=== PATIENT | female | born 1950 | race Caucasian/White ===

== ENCOUNTER 2023-04-21 09:59 | Outpatient (OUT) | payer MEDICARE, OTHER, SELFPAY ==
--- NOTE | 2023-04-21 10:03 | VEIN_ITS ---
Patient: MARCELA BREWER Exam Date: 04/21/2023 : 1950 Gender:F Ordering : DR ELISE BRADY M.D. Admission #: [id number] Family : Order #: [id number] CLICK HERE TO VIEW EXAM RADIOLOGY REPORT PROCEDURE: [facility] EST [facility] - OFFICE VISIT INITIAL COMPARISON: None. PROGRESS NOTES: [age] year old female who presents with a 2 year history of mild leg swelling, pain, skin discoloration. The patient's left leg symptoms are worse than the right. There has been a progression of symptoms. This increases with prolonged standing and prolonged sitting. The patient describes an improvement with walking, exercise, leg elevation. The patient denies any signs and symptoms to suggest arterial ischemia. The patient describes a family history varicose veins on maternal side. The patient has drinking and smoking history of : Current smoker; no alcohol consumption. Patient has a past medical history significant for chronic hypoxemic respiratory failure, chronic systolic heart failure. The patient denies a history of deep venous thrombus or pulmonary embolus. See separate history and physical for medication list. No prior treatment for varicose or spider veins. Current use of compression stockings. After review of nurse notes, history and physical exam I discussed at length the pathophysiology of venous hypertension and possible treatments, therapies and strategies available. We discussed at length the importance of elevating the lower extremities above the level of the heart, increased physical activity and compression stocking use. Ultrasound venous reflux study performed today was discussed at length with the patient. The report demonstrates no significant dilation or significant incompetence of the superficial veins that is suspected to contribute to patient's symptoms. PHYSICAL EXAM: The right leg demonstrates no significant varicosities, no significant spider veins, no ulceration, no significant edema, prominent purplish foot and toes skin discoloration. The left leg demonstrates no significant varicosities, no significant spider veins, no ulceration, mild edema, prominent purplish foot and toes skin discoloration. Both thighs, legs and feet were symmetrically warm to the touch. Good posterior tibial and dorsalis pedis pulses were present bilaterally. VEIN/VC Facility EST Comprehensive IMPRESSION: 1. No significant venous insufficiency 2. No significant lower extremity varicose veins 3. Mild left lower extremity subcutaneous edema 4. No flow significant arterial disease 5. CEAP: C3, EN, AN, PN PLAN: 1. Continued use of compression stockings 2. Elevated legs and increased physical activity symptomatic relief 3. Follow-up with primary care physician and specialists for continuing symptoms. Nurse notes, history and physical were reviewed and confirmed, see attached forms. The nurse was present throughout the physical exam and consultation Dictated by: Luis Limon M.D. on 04/21/2023 at 13:40 Approved by: Luis Limon M.D. on 04/21/2023 at 13:47
--- NOTE | 2023-04-21 10:03 | VEIN_ITS ---
Patient: MARCELA BREWER Exam Date: 04/21/2023 : 1950 Gender:F Ordering : DR ELISE BRADY M.D. Admission #: [id number] Family : Order #: [id number] CLICK HERE TO VIEW EXAM RADIOLOGY REPORT PROCEDURE: VC EXT VENOUS REFLUX ZAHIRA LMTD COMPARISON: None. INDICATIONS: I83.813 Pain due to varicose veins of bilateral leg veins TECHNIQUE: Duplex imaging of the lower extremity to assess the deep and superficial venous system for the presence of deep or superficial venous incompetence and to document the location and severity of disease. The study includes evaluation of the great saphenous vein (GSV), anterior accessory saphenous vein (AASV) and small saphenous vein (SSV). Patient scanned in reverse Trendelenburg and standing. FINDINGS: RIGHT LOWER EXTREMITY: Saphenofemoral Junction Reflux: Yes 5.1mm 1.0 sec GSV: Diam (mm) Reflux/ Time (sec) Proximal Thigh 5.5 Yes 1.2 Mid Thigh 2.4 No Distal Thigh 2.7 No Prox Calf 1.5 Yes 0.3 Mid Calf N/A Saphenopopliteal Junction Reflux: 1.5mm No SSV: Proximal Calf 1.3 Yes 0.3 Mid Calf 2.6 Yes 0.3 AASV: Proximal Thigh 3.5 No Mid Thigh 2.1 No Distal Thigh Thrombi: No acute or chronic thrombus visualized Compressibility: Normal Flow: Normal Preforator: Dist/med calf 2.0mm with 0s reflux. Mid/med calf 1.8mm with 0s reflux. Tech Note: GSV is discontinuous at prox calf. Hypoechoic avascular structure in pop fossa that measures 3.3 x 3.9 x 1.1 cm. Patent varicose vein mid/med calf 1.6mm with 0.8s reflux. Patent varicose vein mid/ant thigh 0.3mm with 0.5s reflux. Patent varicose vein dist/med thigh 2.1mm with 0s reflux. LEFT LOWER EXTREMITY: Saphenofemoral Junction Reflux: Yes 7.3 mm 1.6 sec GSV: Diam (mm) Reflux/Time (sec) Proximal Thigh 5.5 Yes 0.7 Mid Thigh 3.7 No Distal Thigh 3.3 Yes 0.6 Prox Calf N/A Mid Calf N/A Saphenopopliteal Junction Relux: 1.9 mm No SSV: Proximal Calf 1.7 No Mid Calf 1.5 No AASV: Proximal Thigh 3.2 No Mid Thigh 3.0 No Distal Thigh Thrombi: No acute or chronic thrombus visualized Compressibility: Normal Flow: Normal [employer] Site Manager: DIst/med calf 2.4mm with 0s reflux. Tech Note: Incompetent GSV. Patent varicose vein mid/med calf 2.2mm with 0s reflux. Patent varicose vein dist/med thigh 1.6mm with 0s reflux. CONCLUSION: 1. No significant abnormal dilation or reflux involving the superficial veins. Dictated by: Luis Limon M.D. on 04/21/2023 at 11:20 Approved by: Luis Limon M.D. on 04/21/2023 at 11:50
== END 2023-04-21 10:00 | disposition home or self-care (01) ==
LOC: VC 09:59
PROVIDERS: PCP Radiology Diagnostic Radiology; Visit Provider Radiology Diagnostic Radiology
DX: I83.813 Varicose veins of bilateral lower extremities with pain (principal)
CPT/HCPCS: 93970; G0463

== ENCOUNTER 2023-05-14 15:29 | Emergency (ER) | payer MEDICARE, OTHER, SELFPAY ==
[2023-05-14 15:52] VITALS: BP 143/87; PULSE 91; RESP 14; TEMP 36.7; O2SAT 98; BMI 20.6
--- NOTE | 2023-05-14 16:15 | XR_ITS ---
The [address] [address] Patient Name: MARCELA BREWER MRN: [id number] date: 1950 Sex: F Assigned Patient Location: ER Current Patient Location: ER Accession/Order Number: [id number] Exam Date: 05/14/2023 16:28 Report Date: 05/14/2023 16:45 At the request of: JESS VILLALOBOS Procedure: XR chest 1V EXAM: XR chest 1V HISTORY: sob COMPARISON: Portable chest 10/06/2016 TECHNIQUE: Audible chest FINDINGS: IMPRESSION: Again demonstrated is scarring within the left upper lobe. There is now a satellite foci measuring approximately 17 mm with questionable spiculation caudal to this within the left mid to upper hemithorax. No consolidation or infiltrate. No pneumothorax or pleural effusion. The cardiac, mediastinal and hilar contours are unremarkable. Chest CT imaging is recommended Electronically authenticated by: ELISE YORK Date: 05/14/2023 16:45
[2023-05-14 16:28] VITALS: O2SAT 99
--- NOTE | 2023-05-14 16:35 | ECG_ITS ---
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
--- NOTE | 2023-05-14 16:51 | CT_ITS ---
[address] [address] Patient Name: MARCELA BREWER MRN: [id number] date: 1950 Sex: F Assigned Patient Location: ER Current Patient Location: Accession/Order Number: [id number] Exam Date: 05/14/2023 17:04 Report Date: 05/14/2023 17:53 At the request of: JESS VILLALOBOS Procedure: CT chest wo con EXAM: CT chest wo con TECHNIQUE: Axial CT images were obtained of the chest without intravenous contrast administration. Sagittal and coronal reformatted images were also obtained. Dose reduction techniques were achieved by using automated exposure control and/or adjustment of mA and/or kV according to patient size and/or use of iterative reconstruction technique. HISTORY: follow on xray . Spiculated density of the left lung on x-ray. COMPARISON: Chest x-ray 05/14/2023 FINDINGS: Neck and Axilla: No lower neck or axillary lymphadenopathy. Mediastinum and [place]: No hilar or mediastinal lymphadenopathy. The esophagus is grossly unremarkable without dilatation or gross mass lesion. Heart and Major Vessels: The heart is normal for size with coronary artery calcification. No pericardial effusion. The aorta and central pulmonary arteries are unremarkable for size. Lung Os[place]: Severe centrilobular emphysematous changes. Scarring, bullous changes and bronchiectasis in the left upper lobe anteriorly. There is no discrete suspicious lung nodule. Pleural Spaces: No significant pleural effusion. No pneumothorax. Upper Abdomen: Scattered hepatic cysts. Chest Wall: No acute abnormality. CT/CT chest wo con IMPRESSION: Severe emphysematous changes. Scarring and bronchiectasis at the left apex accounting for abnormality seen on radiograph. No suspicious lung mass. No acute consolidation. Electronically authenticated by: KAYLAH MONTENEGRO Date: 05/14/2023 17:53
[2023-05-14] MEDS: FAMOTIDINE/PF 20 MG/2 ML VIAL IV (16:55)
[2023-05-14] MEDS: METHYLPREDNISOLONE SOD SUCC PF 125 MG/2 ML VIAL IVP (16:55)
--- NOTE | 2023-05-14 17:00 | PC.NURSE ---
respiratory swabs obtained and sent to lab
[2023-05-14 17:07] LABS: Basophils Absolute Auto 0.1 10^3/uL (0.0-0.1); Basophils Percent Auto 0.5 % (0.2-2.0); Eosinophils Percent Auto 0.2 % (0.9-7.0); Hematocrit 48.7 % (36.0-48.0); Hemoglobin 15.7 g/dL (12.0-16.0); Immature Granulocytes Abs Auto 0.04 10^3/uL (0.00-0.03); Immature Granulocytes Pct Auto 0.4 % (0.0-0.5); Lymphocytes Absolute Auto 0.4 10^3/uL (1.2-3.8); Lymphocytes Percent Auto 3.8 % (20.5-60.0); Mean Corpuscular HGB Conc 32.2 g/dL (29.9-35.2); Mean Corpuscular Hemoglobin 30.7 pg (26.7-34.0); Mean Corpuscular Volume 95.1 fL (81.0-99.0); Mean Platelet Volume 9.9 fL (9.5-13.5); Monocytes Absolute Auto 0.5 10^3/uL (0.3-0.8); Neutrophils Absolute Auto 9.6 10^3/uL (1.4-6.5); Neutrophils Percent Auto 90.1 % (43.0-75.0); Platelet Count 378 10^3/uL (150-450); Red Blood Count 5.12 10^6/uL (4.20-5.40); Red Cell Distribution Width 14.6 % (11.0-15.0); White Blood Count 10.6 10^3/uL (4.0-11.0)
[2023-05-14] MEDS: IPRATROPIUM/ALBUTEROL SULFATE 3 ML AMPUL.NEB IH (17:10)
[2023-05-14 17:20] LABS: Alanine Aminotransferase 21 U/L (14-59); Albumin Globulin Ratio 0.9; Albumin Level 3.8 g/dL (3.4-5.0); Alkaline Phosphatase 58 U/L (46-116); Anion Gap 11.9; Aspartate Amino Transferase 22 U/L (15-37); BUN Creatinine Ratio 14.5; Bilirubin Total 0.4 mg/dL (0.2-1.0); Calcium 9.8 mg/dL (8.5-10.1); Carbon Dioxide 31.4 mmol/L (21.0-32.0); Chloride 98 mmol/L (98-107); Estimated GFR (African America >60 (>=60); Estimated GFR (Non-African Ame >60 (>=60); Glucose 113 mg/dL (74-106); Potassium 4.3 mmol/L (3.5-5.1); Sodium 137 mmol/L (136-145); Total Protein 7.8 g/dL (6.4-8.2)
[2023-05-14 17:22] LABS: Troponin I High Sensitivity 4.9 pg/mL (4.0-51.3)
[2023-05-14 17:45] VITALS: PULSE 91
[2023-05-14 18:31] VITALS: PULSE 69; RESP 18; O2SAT 90
--- NOTE | 2023-05-15 07:05 | ED.URI1 ---
HPI - URI/Sore Throat General Chief Complaint: Upper Respiratory Infection Stated Complaint: SINUS/SORE THROAT/DIFF BREATHING Time Seen by Provider: 05/14/23 15:35 Source: patient History of Present Illness HPI Narrative: The patient have history of advanced PD is coming to the ER with shortness of breath after she recently was diagnosed with sinusitis, the patient already take azithromycin at home on a weekly basis to avoid infection due to her COPD she also have no fever or chills but she only complaining cough as well as sore throat No other complaints Related Data Home Medications Medication Instructions Recorded Confirmed albuterol 90 mcg/actuation aerosol mcg inhalation 05/14/23 inhaler azithromycin 250 mg tablet 250 mg PO .3x week 05/14/23 05/14/23 budesonide-formoterol HFA 80 2 inh inhalation BID 05/14/23 05/14/23 mcg-4.5 mcg/actuation aerosol inhaler (Symbicort) empagliflozin 10 mg tablet 10 mg PO DAILY 05/14/23 05/14/23 (Jardiance) esomeprazole magnesium 40 mg 40 mg PO BID 05/14/23 05/14/23 capsule,delayed release (Nexium) guaifenesin 400 mg tablet 400 mg PO TID 05/14/23 05/14/23 lorazepam 1 mg tablet (Ativan) 1 mg PO Q12H PRN anxiety 05/14/23 05/14/23 metoprolol tartrate 25 mg tablet 25 mg PO BID 05/14/23 05/14/23 prednisone 10 mg tablet 10 mg PO DAILY 05/14/23 05/14/23 roflumilast 500 mcg tablet 500 mcg PO DAILY 05/14/23 05/14/23 (Daliresp) sacubitril 24 mg-valsartan 26 mg 1 tab PO BID 05/14/23 05/14/23 tablet (Entresto) Previous Rx's Medication Instructions Recorded doxycycline hyclate 100 mg capsule 100 mg PO BID 7 days #14 caps 05/14/23 prednisone 20 mg tablet 20 mg PO DAILY #4 tabs 05/14/23 Allergies Allergy/AdvReac Type Severity Reaction Status Date / Time cephalexin [From Keflex] Allergy Intermediate Verified 05/14/23 16:03 leviquin Allergy Unknown Uncoded 05/14/23 16:03 Review of Systems ROS Status of ROS 10 or more systems reviewed and unremarkable except as noted in history and below [facility] Medical History (Updated 05/14/23 @ 18:09 by Chayo Castellanos MD) Exam Narrative Exam Narrative: Nurses notes and vital signs reviewed and patient is not hypoxic. General: Well-appearing and in no apparent distress. Skin: Warm, dry, no pallor noted. No rash. Head: Normocephalic, atraumatic. Neck: Supple, non-tender. Eye: Pupils are equal, round and EOMI. No scleral icterus. Ears, Nose, Mouth, and Throat: TM are clear, no nasal mucosal hypertrophy. Oral mucosa is moist, no posterior oropharynx erythema, uvula is mid-line Cardiovascular: Regular Rate and Rhythm without murmur, gallop or rub. Respiratory: No accessory muscle use or respiratory distress. Lungs distant breathing sound bilaterally Chest Wall: no tenderness Back: No midline thoracic or lumbar vertebral tenderness. No CVA tenderness Musculoskeletal: normal ROM, no calf or popliteal tenderness, no lower extremity edema/swelling GI: Abdomen is soft, non-distended. Normal bowel sounds. No masses appreciated. No tenderness to palpation. No rebound, guarding, or rigidity noted. Neurological: A&O x4. No cranial nerve dysfunction observed. No truncal ataxia. Moves all extremities. Sensation intact. Psychiatric: Cooperative and interactive. Normal mood and affect. Constitutional Vital Signs, click to edit/add: Last Vital Signs Temp 98.1 F 05/14/23 15:52 Pulse 69 05/14/23 18:31 Resp 18 05/14/23 18:31 BP 143/87 H 05/14/23 15:52 Pulse Ox 90 L 05/14/23 18:31 O2 Del Method Nasal Cannula 05/14/23 16:28 O2 Flow Rate 2 05/14/23 16:28 Course Vital Signs Vital signs: Vital Signs Temperature 98.1 F 05/14/23 15:52 Pulse Rate 91 H 05/14/23 15:52 Respiratory Rate 14 05/14/23 15:52 Blood Pressure 143/87 H 05/14/23 15:52 Pulse Oximetry 98 05/14/23 15:52 Oxygen Delivery Method Room Air 05/14/23 15:52 Temperature 98.1 F 05/14/23 15:52 Pulse Rate 69 05/14/23 18:31 Respiratory Rate 18 05/14/23 18:31 Blood Pressure 143/87 H 05/14/23 15:52 Pulse Oximetry 90 L 05/14/23 18:31 Oxygen Delivery Method Nasal Cannula 05/14/23 16:28 Oxygen Delivery Flow Rate 2 05/14/23 16:28 MDM - URI/Sore Throat MDM Narrative Medical decision making narrative: The patient EKG showing sinus rhythm with a heart rate of [address] elevation or depression she is presenting with a typical COPD exacerbation but she have advanced COPD and she already was oxygen at 2 L baseline she did not increase the oxygen she is saturating 95% on her 2 L and 90% without the oxygen The patient was not showing any distress in the ER and her chest x-ray shows a possible nodule and CAT scan at follow-up did not show any acute pathology The patient CBC and chemistry were within normal she already was taking prednisone but she was tapering it down right now she was discharged home with 20 mg of prednisone daily for the next 4 days in addition to continuing her doxycycline that she was already taking The patient is to follow up with primary care physician in next 2-3 days or to return to the emergency department should any of the signs or symptoms worsen or new symptoms develop. The patient agrees with the following Diagnosis and Treatment plan and the patient will be discharged home. Lab Data Labs: Lab Results 05/14/23 Range/Units 16:45 WBC 10.6 (4.0-11.0) 10^3/uL RBC 5.12 (4.20-5.40) 10^6/uL Hgb 15.7 (12.0-16.0) g/dL Hct 48.7 H (36.0-48.0) % MCV 95.1 (81.0-99.0) fL MCH 30.7 (26.7-34.0) pg MCHC 32.2 (29.9-35.2) g/dL RDW 14.6 (11.0-15.0) % Plt Count 378 (150-450) 10^3/uL MPV 9.9 (9.5-13.5) fL Neut % (Auto) 90.1 H (43.0-75.0) % Lymph % (Auto) 3.8 L (20.5-60.0) % [place] % (Auto) 5.0 (1.7-12.0) % Eos % (Auto) 0.2 L (0.9-7.0) % Baso % (Auto) 0.5 (0.2-2.0) % Neut # (Auto) 9.6 H (1.4-6.5) 10^3/uL Lymph # (Auto) 0.4 L (1.2-3.8) 10^3/uL [place] # (Auto) 0.5 (0.3-0.8) 10^3/uL Eos # (Auto) 0.0 (0.0-0.7) 10^3/uL Baso # (Auto) 0.1 (0.0-0.1) 10^3/uL Abs Immat Gran (auto) 0.04 H (0.00-0.03) 10^3/uL Imm/Tot Granulo (auto) 0.4 (0.0-0.5) % Sodium 137 (136-145) mmol/L Potassium 4.3 (3.5-5.1) mmol/L Chloride 98 (98-107) mmol/L Carbon Dioxide 31.4 (21.0-32.0) mmol/L Anion Gap 11.9 BUN 10.0 (7.0-18.0) mg/dL Creatinine 0.69 (0.55-1.02) mg/dL Est GFR ( Amer) >60 (>=60) Est GFR (Non-Af Amer) >60 (>=60) BUN/Creatinine Ratio 14.5 Glucose 113 H (74-106) mg/dL Calcium 9.8 (8.5-10.1) mg/dL Total Bilirubin 0.4 (0.2-1.0) mg/dL AST 22 (15-37) U/L ALT 21 (14-59) U/L Alkaline Phosphatase 58 (46-116) U/L Troponin I High Sens 4.9 (4.0-51.3) pg/mL Total Protein 7.8 (6.4-8.2) g/dL Albumin 3.8 (3.4-5.0) g/dL Globulin 4.0 g/dL Albumin/Globulin Ratio 0.9 Discharge Plan Discharge Chief Complaint: Upper Respiratory Infection Clinical Impression: COPD exacerbation Patient Disposition: Home, Self-Care Time of Disposition Decision: 18:07 Condition: Good Prescriptions / Home Meds: New prednisone 20 mg tablet 20 mg PO DAILY Qty: 4 0RF doxycycline hyclate 100 mg capsule 100 mg PO BID 7 Days Qty: 14 0RF No Action Jardiance 10 mg tablet 10 mg PO DAILY Entresto 24-26 mg tablet 1 tab PO BID roflumilast [Daliresp] 500 mcg tablet 500 mcg PO DAILY albuterol 90 mcg/actuation aerosol inhalation budesonide-formoterol [Symbicort] 80-4.5 mcg/actuation HFA aerosol inhaler 2 inh inhalation BID guaifenesin 400 mg tablet 400 mg PO TID esomeprazole magnesium [Nexium] 40 mg capsule,delayed release(DR/EC) 40 mg PO BID metoprolol tartrate 25 mg tablet 25 mg PO BID lorazepam [Ativan] 1 mg tablet 1 mg PO Q12H PRN (Reason: anxiety) prednisone 10 mg tablet 10 mg PO DAILY azithromycin 250 mg tablet 250 mg PO .3x week Rx Instructions: start on day 2 of therapy Instructions: COPD (Chronic Obstructive Pulmonary Disease) (ED) Stand Alone Forms: Portal Instructions Referrals: Maximino Carrillo MD [Primary Care Provider] - 1 week Discharge Date/Time: 05/14/23 18:23
== END 2023-05-14 18:23 | disposition home or self-care (01) ==
PROVIDERS: Emergency Provider Emergency Medicine; PCP Radiology Diagnostic Radiology
DX: J44.1 Chronic obstructive pulmonary disease with (acute) exacerbation (principal); Z79.899 Other long term (current) drug therapy
CPT/HCPCS: 36415; 71045; 71250; 80053; 84484; 85025; 93005; 94640; 96374; 96375; 99285; J2930

== ENCOUNTER 2023-12-29 07:49 | Outpatient (RCR) | payer MEDICARE, OTHER, SELFPAY ==
[2023-12-27 15:48] LABS: Anion Gap 10.8; BUN Creatinine Ratio 10.9; Calcium 10.3 mg/dL (8.5-10.1); Carbon Dioxide 33.9 mmol/L (21.0-32.0); Chloride 97 mmol/L (98-107); Estimated GFR (African America >60 (>=60); Estimated GFR (Non-African Ame >60 (>=60); Glucose 146 mg/dL (74-106); Potassium 3.7 mmol/L (3.5-5.1); Sodium 138 mmol/L (136-145)
[2023-12-29 11:30] VITALS: BP 168/80; PULSE 95; TEMP 37.3; O2SAT 92
[2023-12-29] MEDS: ZOLEDRONIC ACID/MANNITOL-WATER 5 MG/100 ML BOTTLE 400 MG IV (12:05)
--- NOTE | 2023-12-29 12:51 | PC.NURSE ---
1130 Arrival ambulatory to chair 2, alert oriented. wearing oxygen at 4 lpm nc. vs obtained. #24 iv initiated right forearm on 1 attempt, pt tolerated well. Educated on need to be taking calcium and vit d, patient verbalizes she is currentlytaking both. most recent labs reviewed with patient. encourgaged to increase oral intake of fluids for next 24 hours. patient verbalizes understanding. 1225 IV reclast infused, flushed line with normalsaline. IV dc'd catheter intact,site clear. Released ambulatory
== END 2024-01-03 23:59 | disposition home or self-care (01) ==
LOC: INF 07:49
PROVIDERS: PCP Family Medicine; Visit Provider Family Medicine
DX: Z79.899 Other long term (current) drug therapy (principal); M81.0 Age-related osteoporosis without current pathological fracture
CPT/HCPCS: 36415; 80048; 96365; J3489

== ENCOUNTER 2024-01-10 07:57 | Outpatient (OUT) | payer MEDICARE, OTHER, SELFPAY ==
--- NOTE | 2024-01-10 08:02 | VEIN_ITS ---
Patient Name: MARCELA BREWER MR#: [id number] : 1950 Exam Date: 01/10/2024 Ordering Doctor: Non-Staff Physician RADIOLOGY REPORT PROCEDURE: VC EXT VENOUS REFLUX ZAHIRA LMTD COMPARISON: VC EXT VENOUS REFLUX ZAHIRA LMTD, 04/21/2023. INDICATIONS: Pain due to varicose veins of bilateral legs I83.813 TECHNIQUE: Duplex imaging of the lower extremity to assess the deep and superficial venous system for the presence of deep or superficial venous incompetence and to document the location and severity of disease. The study includes evaluation of the great saphenous vein (GSV), anterior accessory saphenous vein (AASV) and small saphenous vein (SSV). Patient scanned in reverse Trendelenburg and standing. FINDINGS: RIGHT LOWER EXTREMITY: Saphenofemoral Junction Reflux: Yes 6.3mm 0.6 sec GSV: Diam (mm) Reflux/ Time (sec) Proximal Thigh 5.5 No Mid Thigh 2.3 No Distal Thigh 2.3 No Prox Calf 2.3 No Mid Calf N/A Saphenopopliteal Junction Reflux: 1.9mm No SSV: Proximal Calf 1.8 No Mid Calf 2.4 No AASV: Proximal Thigh 1.9 No Mid Thigh 1.7 No Distal Thigh Thrombi: No acute or chronic thrombus visualized Compressibility: Normal Flow: Normal Preforator: Dist/med calf 1.5mm with 0s reflux. Tech Note: Patent varicose vein prox/med calf 1.6mm with 0s reflux. 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 Tech Note: Patent varicose vein dist/med thigh 2.4mm with 0s reflux. CONCLUSION: 1. No abnormal or suspicious dilation or reflux within the superficial veins of the right and left lower extremity. 2. No appreciable deep vein thrombus. Dictated by: Luis Limon M.D. on 01/10/2024 at 15:51 Approved by: Luis Limon M.D. on 01/10/2024 at 15:53
--- NOTE | 2024-01-10 08:40 | VEIN_ITS ---
Patient Name: MARCELA BREWER MR#: [id number] : 1950 Exam Date: 01/10/2024 Ordering Doctor: Non-Staff Physician PROCEDURE: VC ULTRASOUND IVC LMT COMPARISON: None. 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 Dictated by: Maximino Carrillo MD on 01/11/2024 at 14:29 Approved by: Maximino Carrillo MD on 01/11/2024 at 14:38 Dictated by: Maximino Carrillo MD on 01/11/2024 at 14:56 Approved by: Maximino Carrillo MD on 01/11/2024 at 14:56
== END 2024-01-10 07:58 | disposition home or self-care (01) ==
LOC: VC 07:57
PROVIDERS: PCP Family Medicine
DX: I87.2 Venous insufficiency (chronic) (peripheral) (principal); I73.89 Other specified peripheral vascular diseases; R60.0 Localized edema
CPT/HCPCS: 76775; 93970

== ENCOUNTER 2024-04-21 16:59 | Emergency (ER) | payer MEDICARE, OTHER, SELFPAY ==
[2024-04-21] VITALS (15 sets, daily range): BP systolic 152–172; BP diastolic 75–95; PULSE 85–96; TEMP 36.6; O2SAT 94–100; BMI 19.8
--- OUTSIDE RECORDS SUMMARY | 2024-04-21 17:12 | XMS_ITS | CCD ---
Author Organization [facility] Care Team Providers Care It Risk And Assurance Senior Manager Name Role Phone Bernadette Lyles Primary Care Provider PILI STEARNS Referring Unavailable BERNADETTE LYLES Primary Care Unavailable Luiz Tadeo Primary Care Provider Luiz Tadeo Primary Care Provider [phone] Luiz Tadeo Primary Care Provider [phone] Luiz Tadeo Primary Care Provider Alex Riggins MD Unavailable DR LUIZ TADEO Primary Care Unavailable WILBER, DR FLEMING Admitting Unavailable WILBER, DR FLEMING Consulting Unavailable WILBER, DR FLEMING Attending Unavailable DINEROSAMANTHA Consulting Unavailable NADEREHernandez, DR LUIZ Anglin Admitting Unavailable NADERER, DR LUIZ Anglin Primary Care Unavailable NADEREHernandez, DR LUIZ Anglin Consulting Unavailable NADEREHernandez, DR LUIZ Anglin Attending Unavailable ALEX RIGGINS Referring Unavailable LUIZ TADEO Primary Care Unavailable ALEX RIGGINS Referring Unavailable LUIZ TADEO Primary Care Unavailable LUIZ TADEO Primary Care Unavailable ALEX RIGGINS Referring Unavailable Alex Riggins MD Unavailable Luiz Tadeo MD Primary Care Provider [phone] LUIZ TADEO Primary Care Unavailable DENNISE BENTLEY Attending Unavailable LAURA MAC Consulting Unavailable CARYN GONZALEZ Admitting Unavailable ILEANA, NISH Referring Unavailable LUIZ TADEO Primary Care Unavailable ILEANA, NISH Referring Unavailable LUIZ TADEO Primary Care Unavailable LAURA MAC Attending Unavailable LAURA MAC Referring Unavailable LUIZ TADEO Primary Care Unavailable Naderer, Luiz A Primary Care Provider LAURA MAC Attending Unavailable NADERER, LUIZ Referring Unavailable NADERER, LUIZ Primary Care Unavailable BUBBA, LAURA M Attending Unavailable NADERER, LUIZ Referring Unavailable NADERER, LUIZ Primary Care Unavailable NADERER, LUIZ Attending Unavailable FAWWAD, Attending Unavailable FAWWAD, Attending Unavailable RIGGINS, ALEX Attending Unavailable RIGGINS, ALEX Referring Unavailable NADERER, LUIZ A Primary Care Unavailable HORNACEK, YUKI Referring Unavailable NADERER, LUIZ A Primary Care Unavailable HORNACEK, YUKI Attending Unavailable HORNACEK, YUKI Referring Unavailable NADERER, LUIZ A Primary Care Unavailable HORNACEK, YUKI Attending Unavailable RIGGINS, ALEX Referring Unavailable NADERER, LUIZ A Primary Care Unavailable RIGGINS, ALEX Attending Unavailable RIGGINS, ALEX Referring Unavailable NADERER, LUIZ A Primary Care Unavailable ALEX RIGGINS Referring Unavailable NADERER, LUIZ Primary Care Unavailable BUBBA, LAURA M Attending Unavailable BUBBA, LAURA M Referring Unavailable NADERER, LUIZ Primary Care Unavailable BUBBA, LAURA M Referring Unavailable NADERER, LUIZ Primary Care Unavailable NADERER, LUIZ Referring Unavailable NADERER, LUIZ Primary Care Unavailable BUBBA, LAURA M Referring Unavailable NADERER, LUIZ Primary Care Unavailable BUBBA, LAURA M Attending Unavailable BUBBA, LAURA M Referring Unavailable NADERER, LUIZ Primary Care Unavailable NADERER, LUIZ Primary Care Unavailable BUBBA, LAURA M Referring Unavailable BUBBA, LAURA M Referring Unavailable NADERER, LUIZ Primary Care Unavailable BUBBA, LAURA M Referring Unavailable NADERER, LUIZ Primary Care Unavailable Allergies Allergy Classification Reported Allergen(s) Allergy Type Date of Onset Reaction(s) Facility carbinoxamine / Pseudoephedrine (1 source) carbinoxamine / Pseudoephedrine Drug Allergy 2 [facility] Cephalosporins (antibiotic) (2 sources) Cephalexin Drug Allergy 2 [facility] Work Phone: DOPamine Antagonists (1 source) Metoclopramide Drug Allergy 2 [facility] Macrolides (antibiotic) (1 source) Erythromycin Drug Allergy 2 Nausea And Vomiting [facility] Phone: metaxalone (1 source) metaxalone Drug Allergy 2 [facility] Quinolones (antibiotic) (2 sources) Ciprofloxacin Drug Allergy 2 Rash [facility] Serotonin Reuptake Inhibitors (SSRIs) (1 source) Sertraline Drug Allergy 2 Swelling [facility] (20 sources) carbinoxamine / Pseudoephedrine; 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: [CARBINOXAMINE-PSEU DOEPHEDRINE] Drug Allergy 6 Other: See Comments [facility] (20 sources) Cephalexin; 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: [CEPHALEXIN] Drug Allergy 2 Hives [facility] (20 sources) Ciprofloxacin; 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: [CIPROFLOXACIN] Drug Allergy 8 Rash [facility] (20 sources) Erythromycin; 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: [ERYTHROMYCIN] Drug Allergy 2 GI Upset, Nausea [facility] (20 sources) levoFLOXacin; 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: [LEVOFLOXACIN] Drug Allergy 2 Rash, Swelling [facility] (20 sources) metaxalone; 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: [METAXALONE] Drug Allergy 2 Other: See Comments [facility] (20 sources) Metoclopramide; 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: [METOCLOPRAMIDE] Drug Allergy 2 Intolerance [facility] (20 sources) montelukast; 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: [MONTELUKAST] Drug Allergy 1 Other: See Comments, Wheezing [facility] (20 sources) pantoprazole; 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: [PANTOPRAZOLE] Drug Allergy 1 Other: See Comments, Abdominal Pain [facility] (20 sources) Sertraline; 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: [SERTRALINE] Drug Allergy 2 Swelling [facility] (1 source) Amoxicillin Drug Allergy 3 [facility] (1 source) carbinoxamine Drug Allergy 3 [facility] (1 source) Cephalexin Drug Allergy 2 [facility] (1 source) Ciprofloxacin Drug Allergy 2 [facility] (1 source) Erythromycin Drug Allergy 2 [facility] (1 source) Gentian Mary Drug Allergy 3 [facility] (1 source) Iothalamate Drug Allergy 2 [facility] (1 source) levoFLOXacin Drug Allergy 2 [facility] (1 source) metaxalone Drug Allergy 3 [facility] (1 source) metaxalone Drug Allergy 2 [facility] (1 source) montelukast Drug Allergy 3 [facility] (1 source) Sertraline Drug Allergy 3 [facility] (1 source) Sertraline Drug Allergy 2 [facility] (8 sources) Metoclopramide; 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: [METOCLOPRAMIDE HCL] Drug Allergy 6 [facility] (8 sources) pantoprazole; 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: [PANTOPRAZOLE SODIUM] Drug Allergy 1 [facility] Medications Current Medications Medication Drug Class(es) Dates Sig (Normalized) Sig (Original) acetaminophen 325 mg oral tablet (20 sources) Start: 05-05-2021 take 2 tablets by mouth every four hours as needed acetaminophen (TYLENOL) 325 mg tablet Take 650 mg by mouth every 4 hours as needed. 0 05/05/2021 Active Comment on above: Take 650 mg by mouth every 4 hours as needed. [id number] 200 actuat albuterol 0.09 mg/actuat metered dose inhaler (20 sources) beta2-Adrenergic Agonist Start: 07-25-2023 take 2 puff(s) by mouth every six hours as needed for wheezing albuterol (PROVENTIL HFA;VENTOLIN HFA) 90 mcg/actuation inhaler Indications: Chronic obstructive pulmonary disease, unspecified COPD type ([facility]) INHALE TWO PUFFS BY MOUTH EVERY 6 HOURS NEEDED FOR WHEEZING AND SHORTNESS OF BREATH 8.5 g 11 07/25/2023 Active Start: 09-11-2021 albuterol HFA (PROVENTIL HFA, VENTOLIN HFA) 90 mcg/actuation inhaler once daily as needed. 0 09/11/2021 Active Comment on above: once daily as needed . albuterol 0.833 mg/ml / ipratropium bromide 0.167 mg/ml inhalation solution (1 source) Anticholinergic, beta2-Adrenergic Agonist Start: 017 take 1 dose by inhalation four times daily ipratropium-albuterol (DUONEB) 0.5-2.5 (3) MG/3ML SOLN nebulizer solution INHALE THE CONTENTS OF 1 VIAL BY NEBULIZER QID PRF SHORTNESS OF BREATH 3 07/25/2017 Active atorvastatin 10 mg oral tablet (20 sources) HMG-CoA Reductase Inhibitor take 1 tablet by mouth once daily atorvastatin (LIPITOR) 10 mg tablet Take 10 mg by mouth once daily. 0 Active Comment on above: Take 10 mg by mouth once daily. azithromycin 250 mg oral tablet (5 sources) Macrolide Antimicrobial Start: End: take 1 tablet by mouth three times weekly azithromycin (ZITHROMAX) 250 mg tablet Indications: Chronic obstructive pulmonary disease, unspecified COPD type (CMS-HCC) , Bronchiectasis (CMS-HCC) TAKE 1 TABLET(250 MG) BY MOUTH 3 TIMES A WEEK 12 tablet 11 10/29/2023 11/26/2023 Active Start: 11-16-2017 End: 01-14-2022 azithromycin (ZITHROMAX) 250 mg tablet Take 1 tablet by mouth every 48 hours. 0 11/16/2017 01/14/2022 Start: 11-16-2017 take 1 tablet by ella th once daily azithromycin (ZITHROMAX) 250 MG tablet TAKE ONE TABLET BY MOUTH DAILY 30 tablet 0 11/16/2017 Active Comment on above: Take 1 tablet by ella th every 48 hours. benzonatate 100 mg oral capsule (3 sources) Non-narcotic Antitussive Start: 09-24-19 take 1 capsule by mouth three times daily as needed for cough benzonatate (TESSALON PERLES) 100 mg capsule Take 1 capsule (100 mg total) by mouth 3 (three) times a day as needed for cough. 20 capsule 0 09/24/2023 Active 120 actuat budesonide 0.16 mg/actuat / formoterol fumarate 0.0048 mg/actuat / glycopyrrolate 0.009 mg/actuat metered dose inhaler (10 sources) Corticosteroid, beta2-Adrenergic Agonist Start: 12-14-20 23 budesonide-glycopyr -formoterol (BREZTRI AEROSPHERE) 160-9-4.8 mcg/actuation HFA aerosol inhaler Inhale 2 Puffs as instructed. 0 08/18/2023 Active Start: 08-18-2023 take 2 puff(s) by inhalation at bedtime imkcbfzzkz-uvlffvna-uweafcreyf 160-9-4.8 mcg/actuation HFA aerosol inhaler Indications: Chronic obstructive pulmonary disease, unspecified COPD type ([facility]) Inhale 2 puffs in the morning and at bedtime. 10.7 g 12 08/18/2023 Active Comment on above: Inhale 2 Puffs as in structed. Calcium Carb-Cholecalciferol (CALCIUM CARBONATE-VITAMIN D3 PO) (1 source) Calcium Carb-Cholecalciferol (CALCIUM CARBONATE-VITAMIN D3 PO) Take 1 tablet by mouth 0 Active calcium carbonate 2500 mg / cholecalciferol 800 unt oral tablet (20 sources) Vitamin D take 1 tablet by mouth once daily calcium carbonate-vitamin D3 1,000 mg-20 mcg (800 unit) tab Take 1 tablet by mouth once daily. 0 Active Comment on above: Take 1 tablet by ella th once daily. doxycycline hyclate 100 mg oral capsule (1 source) Tetracycline-class Drug Start: End: 024 take 1 capsule by mouth in the morning, then take 1 capsule by mouth at bedtime doxycycline (VIBRAMYCIN) 100 mg capsule Indications: [place]asis [place] Take 1 capsule (100 mg total) by mouth in the morning and 1 capsule (100 mg total) before bedtime. Do all this for 10 days. 20 capsule 0 11/10/2023 11/20/2023 Active eflornithine 139 mg/ml topical cream (1 source) Antiprotozoal, Decarboxylase Inhibitor Start: Eflornithine HCl (VANIQA) 13.9 % CREA Apply 1 Applicatorful topically 2 times daily. 1 Tube 6 11/09/2012 Active empagliflozin 10 mg oral tablet (20 sources) Sodium-Glucose Cotransporter 2 Inhibitor Start: take 1 tablet by mouth once daily empagliflozin (JARDIANCE) 10 mg tablet Take 1 tablet by mouth once daily. 90 tablet 3 07/07/2023 Active Comment on above: Take 10 mg by mouth once daily. Take 1 tablet by ella once daily. esomeprazole 40 mg delayed release oral capsule (20 sources) Proton Pump Inhibitor take 1 capsule by mouth twice daily esomeprazole (NEXIUM) 40 mg capsule Take 40 mg by mouth twice daily. 0 Active take 1 capsule by mouth once mariah ly esomeprazole (NEXIUM) 40 mg capsule Take 40 mg by mouth once daily. 0 Active take 40 mg by mouth once daily e someprazole Magnesium (NEXIUM) 40 MG PACK Take 40 mg by mouth daily 0 Active Comment on above: Take 40 mg by mouth once daily. Take 40 mg by mouth twice daily. 12 hr guaiFENesin 600 mg extended release oral tablet (5 sources) Start: take 1 tablet by mouth once guaiFENesin (MUCINEX) 600 mg tablet extended release 12hr Indications: Bronchiectasis (CMS-HCC) , Chronic cough Take 1 tablet (600 mg total) by mouth every 12 (twelve) hours. 60 tablet 10 03/10/2023 Active ipratropium bromide 0.2 mg/ml inhalation solution (20 sources) Anticholinergic Start: 023 take 1 dose by inhalation four times daily ipratropium (ATROVENT) 0.02 % nebulizer solution Indications: Other emphysema (CMS-HCC) , Bronchiectasis (CMS-HCC) INHALE CONTENTS OF 1 VIAL VIA NEBULIZER FOUR TIMES DAILY 1080 mL 1 07/26/2023 Active ipratropium (ATR OVENT) 0.02 % nebulizer solution Use 0.5 mg via nebulizer four times daily. 0 Active Comment on above: Use 0.5 mg via nebul izer four times daily. iv contrast (will be provided with radiology test) (1 source) Start: 024 End: 024 inject 1 dose intravenously once iv contrast (will be provided with radiology test) CTA ABD/PEL - No IV access, insert saline lock prior to the sedation, infusion, injection for imaging exam. Discontinue saline lock post exam. If Pt. has a central line or IVAD, may access for administration according to line specific nursing protocol. Once exam is complete flush line and de-access according to line specific nursing protocol in the CT contrast administration guidelines link. 1 Each 0 03/15/2024 03/16/2024 Active levalbuterol 0.417 mg/ml inhalation solution (20 sources) beta2-Adrenergic Agonist Start: levalbuterol (XOPENEX) 1.25 mg/3 mL nebulizer solution four times daily. 0 09/11/2021 Active Comment on above: four times daily. 24 hr loratadine 10 mg / pseudoephedrine sulfate 240 mg extended release oral tablet (14 sources) alpha-Adrenergic Agonist End: take 1 tablet by mouth once in the morning, then take 1 tablet by mouth every twenty-four hours loratadine-pseudoeph edrine (CLARITIN-D 24-hour) 10-240 mg per 24 hr tablet Take 1 tablet by mouth in the morning. 0 Active take 1 tablet by ella th once daily loratadine-pseudoephedrine ER (CLARITIN- D 24) 10-240 mg Tb24 Take 1 tablet by mouth once daily. 0 Active take 1 tablet by ella th once daily Loratadine-Pseudoephedrine (CLARITIN-D 2 4 HOUR PO) Take 1 tablet by mouth daily. 0 Active Comment on above: Take 1 tablet by ella th once daily. Take 1 tablet by ella th as needed. LORazepam 1 mg oral tablet (20 sources) Benzodiazepine Start: 6 take 1 tablet by mouth four times daily LORazepam (ATIVAN) 1 mg tablet Take 1 mg by mouth four times daily. 0 07/26/2016 Active take 1 tablet by ella th every six hours as needed for anxiety LORazepam (ATIVAN) 0.5 MG tablet Take 0. 5 mg by mouth every 6 hours as needed for Anxiety. 0 Active Comment on above: Take 1 mg by mouth f our times daily. 24 hr metoprolol succinate 50 mg extended release oral tablet (20 sources) beta-Adrenergic Stanley Start: 09-22-19 End: 04-07-20 23 take 1 tablet by mouth twice daily metoprolol succinate ER (TOPROL XL) 50 mg 24 hr tablet Take 1 tablet by mouth twice daily. 180 tablet 3 04/08/2023 Active Comment on above: Take 50 mg by mouth twice daily. Take 1 tablet by ella th twice daily. nebulizer accessories (REUSABLE NEBULIZER KIT) kit (5 sources) Start: 09-23-19 17 nebulizer accessories (REUSABLE NEBULIZER KIT) kit Indications: Chronic obstructive pulmonary disease, unspecified COPD type ([facility]) Use as directed 1 kit 11 09/23/2016 Active nebulizer accessories misc (5 sources) Start: 10-21-19 nebulizer accessories misc Indications: Chronic respiratory failure with hypoxia ([facility]) , Chronic obstructive pulmonary disease, unspecified COPD type ([facility]) , [place]asis [place] Tubing kit and supplies for home nebulizer 1 each 12 10/21/2022 Active 24 hr nicotine 0.875 mg/hr transdermal system (4 sources) Cholinergic Nicotinic Agonist Start: 09-24-19 apply 1 dose transdermal route every hour in the morning nicotine (NICODERM CQ) 21 mg/[address] 1 patch on the skin in the morning. 30 patch 0 09/24/2023 Active Start: 05-20-2016 nicotine (RUBENS DERM CQ) 21 MG/24HR Place 1 patch onto the skin 0 05/20/2016 Active nitroglycerin 0.02 mg/mg topical ointment (20 sources) Nitrate Vasodilator Start: 02-27-2021 nitroglyce rin (NITRO-BID) 2 % ointment as needed. Raynaud's 0 02/27/2021 Active Comment on above: as needed. Raynaud's Oxygen (5 sources) oxygen Inhale 2 L/min continuously. 0 Active predniSONE 10 mg oral tablet (20 sources) Start: 09-24-2023 predniSONE (DE LTASONE) 10 mg tablet Take 4 tabs daily for 3 days, then 3 tabs daily for 3 days, then 2 tabs daily for 3 days, then continue on 10mg daily. 30 tablet 0 09/24/2023 Active Start: 02-18-2023 predniSONE (DE LTASONE) 10 mg tablet Indications: Bronchiectasis ([facility]) Take 4 tabs daily x 3 days, then take 3 tabs daily x 3 days, then take 2 tabs daily x 3 days, then take 1 tab daily x 3 days 30 tablet 0 02/18/2023 Active Start: 10-15-2021 take 1 tablet by ella th once daily predniSONE (DELTASONE) 10 mg tablet Take 10 mg by mouth once daily. 0 10/15/2021 Active Start: 09-04-2017 take 1 tablet by ella th once daily predniSONE (DELTASONE) 5 MG tablet TK 1 T PO QD 6 09/04/2017 Active Comment on above: Take 10 mg by mouth once daily. raloxifene hydrochloride 60 mg oral tablet (1 source) Estrogen Agonist/Antagonist Start: 05-03-20 13 take 1 tablet by mouth once daily raloxifene (EVISTA) 60 MG tablet Take 1 tablet by mouth daily. 30 tablet 5 05/03/2013 Active roflumilast 0.5 mg oral tablet (20 sources) Phosphodiesterase 4 Inhibitor Start: 09-15-19 22 End: 10-13-19 24 take 1 tablet by mouth once daily roflumilast (DALIRESP) 500 mcg tab Take 500 mcg by mouth once daily. 0 09/15/2021 Active take 1 tablet by mouth once emilia y Roflumilast (DALIRESP) 500 MCG tablet Take 500 mcg by mouth daily. 0 Active Comment on above: Take 500 mcg by mout h once daily. sacubitril 49 mg / valsartan 51 mg oral tablet (20 sources) Angiotensin 2 Receptor Stanley Start: 12-06-2022 take 1 tablet by mouth twice daily sacubitril-valsa rtan (ENTRESTO) 49-51 mg tablet Take 1 tablet by mouth twice daily. 180 tablet 3 12/06/2022 Active Start: 06-22-2021 End: 12-02-2022 take 1 tablet by mouth twice daily sacubitriL-valsartan (ENTRESTO) 49-51 mg tablet Take 1 tablet by mouth 2 (two) times a day. 60 tablet 3 06/22/2021 Active Comment on above: Take 1 tablet by ella twice daily. sodium chloride 30 mg/ml inhalation solution (20 sources) Start: 10-12-2023 sodium chloride (NEBUSAL) 3 % nebulizer solution INHALE CONTENTS OF 1 VIAL VIA NEBULIZER EVERY DAY 0 10/12/2023 Active Start: 09-23-2023 sodium chlorid e 0.9 % injection Infuse 10 mL into a venous catheter every 12 (twelve) hours. May also infuse 10 mL as needed for line care. May also infuse 20 mL as needed for line care. 1000 mL 0 09/23/2023 Active Start: 08-18-2023 take 750 mL by inhal ation once daily sodium chloride 3 % nebulizer solution Indications: Bronchiectasis (CMS-HCC) Inhale by nebulization daily. 750 mL 12 08/18/2023 Active Start: 11-30-2022 End: 12-30-2022 take 1 tablet by mouth once daily sodium chloride 1,000 mg TbSO Take 1 tablet by mouth once daily. ON HOLD 0 12/30/2022 Active Start: 11-02-2021 End: 01-18-2024 sodium chloride 0.9 % (flush ) 10 mL (BD POSIFLUSH) Comment on above: Take 1,000 mg by ella th once daily. Take 1 tablet by ella th once daily. ON HOLD INHALE CONTENTS OF 1 VIAL VIA NEBULIZER EVERY DAY tiotropium 0.018 mg inhalation powder (1 source) Anticholinergic Start: take 1 capsule by inhalation once daily tiotropium (SPIRIVA) 18 MCG inhalation capsule Inhale 1 capsule into the lungs daily. 30 capsule 5 05/03/2013 Active tobramycin 60 mg/ml inhalation solution (2 sources) Aminoglycoside Antibacterial Start: End: take 5 mL by inhalation in the morning tobramycin PF (OMAR) 300 mg/5 mL nebulizer solution Indications: Bronchiectasis (CMS-HCC) , Pseudomonas aeruginosa infection Inhale 5 mL (300 mg total) by nebulization in the morning and 5 mL (300 mg total) before bedtime. Do all this for 28 days. 280 mL 0 09/09/2023 10/07/2023 Active torsemide 10 mg oral tablet (11 sources) Loop Diuretic Start: 023 End: take 1 tablet by mouth once daily as needed torsemide (DEMADEX) 10 mg tablet Take 1 tablet by mouth once daily as needed. 30 tablet 0 11/01/2023 Active Comment on above: Take 1 tablet by ella th once daily as needed. vitamin e 268 mg oral capsule (20 sources) take 1 capsule by mouth once daily Vitamin E, dl, acetate, (VITAMIN E) 400 unit capsule Take 400 Units by mouth once daily. 0 Active take 1 capsule by mouth in the m orning vitamin E 400 units capsule Take 1 capsule (400 Units total) by mouth in the morning. 0 Active take 1 capsule by mouth once mariah ly Vitamin E, dl, acetate, (VITAMIN E) 400 unit capsule Take 400 Units by mouth once daily. 0 Active vitamin E (VITAM IN E-400) 400 UNIT capsule Take 400 Units by mouth 0 Active Comment on above: Take 400 Units by mo [facility] once daily. Completed/Discontinued Medications Medication Drug Class(es) Dates Sig (Normalized) Sig (Original) ALPRAZolam 0.5 mg oral tablet (2 sources) Benzodiazepine Start: 01-26-2022 End: 01-26-2022 take 1 tablet by mouth once daily as needed ALPRAZolam (XANAX) 0.5 mg tablet Indications: Anxiety Take 1 tablet by mouth as needed (BEFORE MRI TEST, ADMINISTER BY THE NURSE) for up to 1 day. 1 tablet 0 01/26/2022 01/26/2022 Discontinued (Course of therapy completed) Comment on above: [facility] (BEFORE MRI TEST, ADMINISTER BY THE NURSE) for up to 1 day. fluticasone / salmeterol (20 sources) Corticosteroid, beta2-Adrenergic Agonist Start: 11-06-2020 take 1 puff(s) by inhalation twice daily fluticasone-salmet haris (ADVAIR) 500-50 mcg/dose dsdv Inhale 1 Puff as instructed twice daily. 0 11/06/2020 Active Start: 11-06-2020 take 1 puff(s) by in halation twice daily fluticasone-salmeterol (ADVAIR) 500-50 mcg/dose dsdv Inhale 1 Puff as instructed twice daily. 0 11/06/2020 Active Start: 05-03-2013 take 1 puff(s) by in halation twice daily fluticasone-salmeterol (ADVAIR) 250-50 MCG/DOSE AEPB Inhale 1 puff into the lungs 2 times daily. 60 each 5 05/03/2013 Active Comment on above: Inhale 1 Puff as ins tructed twice daily. furosemide 40 mg oral tablet (20 sources) Loop Diuretic Start: 1 End: 3 furosemide (LASIX) 40 mg tablet Take 40 mg by mouth as needed. 0 07/27/2021 12/30/2022 Discontinued Comment on above: Take 40 mg by mouth as needed. lamoTRIgine 25 mg oral tablet (20 sources) Mood Stabilizer, Anti-epileptic Agent Start: End: take 1 tablet by mouth once daily at bedtime lamoTRIgine (LAMICTAL) 25 mg tablet Take 25 mg by mouth daily at bedtime. 0 05/25/2021 01/12/2024 Discontinued (Discontinued by Patient) Start: 05-25-2021 take 2 tablets by mo uth in the morning for anxiety lamoTRIgine (LaMICtal) 25 mg tablet Take 2 tablets (50 mg total) by mouth in the morning. For anxiety. 0 05/25/2021 Active Comment on above: Take 25 mg by mouth daily at bedtime. perflutren lipid microspheres 1.3 mL in NaCl (PF) 0.9% 10 mL injection (DEFINITY) (20 sources) Start: 10-19-2022 End: 01-18-2024 perflutren lipid microspheres 1.3 mL in NaCl (PF) 0.9% 10 mL injection (DEFINITY) Start: 11-02-2021 End: 02-01-2023 perflutren lipid microsphere s 1.3 mL in NaCl (PF) 0.9% 10 mL injection (DEFINITY) potassium chloride 10 meq extended release oral tablet (20 sources) Start: 07-27-2021 End: 12-30-2022 potassium chloride (K-TAB) 10 mEq tablet as needed. With lasix 0 07/27/2021 12/30/2022 Discontinued Comment on above: as needed. With lasi x spironolactone 25 mg oral tablet (20 sources) Aldosterone Antagonist Start: 08-24-2021 End: 12-30-2022 take 1 tablet by mouth once daily spironolactone (ALDACTONE) 25 mg tablet Take 1 tablet by mouth once daily. ON HOLD 90 tablet 3 12/30/2022 Active Comment on above: Take 25 mg by mouth once daily. Take 1 tablet by ella th once daily. Take 1 tablet by ella th once daily. ON HOLD Problems Active Problems Problem Classification Problem Date Documented Date Episodic/Chronic Anxiety disorders (1 source) Anxiety; 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: [Anxiety disorder, unspecified] Chronic Bacterial infection; unspecified site (12 sources) Infection due to Pseudomonas aeruginosa; 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: [Other bacterial infections of unspecified site] Onset: 11-10-2016 09-09-2023 Episodic Cardiac arrest and ventricular fibrillation (1 source) Ventricular fibrillation; 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: [Ventricular fibrillation] Onset: 11-03-2023 Chronic Cardiac dysrhythmias (11 sources) Ventricular tachycardia; 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: [Ventricular tachycardia (HCC)] Onset: 12-21-2021 Chronic Chronic obstructive pulmonary disease and bronchiectasis (20 sources) Chronic obstructive lung disease; 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: [Chronic obstructive pulmonary disease, unspecified] Onset: 09-28-2012 Resolved: 11-10-2016 09-28-2012 Chronic Congestive heart failure; nonhypertensive (17 sources) Chronic systolic heart failure; 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: [Chronic systolic (congestive) heart failure] Onset: 08-17-2021 Chronic Disorders of lipid metabolism (1 source) Hyperlipidemia; 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: [Hyperlipidemia, unspecified] Onset: 09-28-2012 09-28-2012 Chronic Esophageal disorders (1 source) Gastroesophageal reflux disease; 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: [Gastro-esophageal reflux disease without esophagitis] Onset: 09-28-2012 09-28-2012 Chronic Essential hypertension (6 sources) Hypertensive disorder; 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: [Essential (primary) hypertension] Onset: 09-28-2012 09-28-2012 Chronic Fluid and electrolyte disorders (2 sources) Hypo-osmolality and or hyponatremia; 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: [Hypo-osmolality and hyponatremia] Episodic Nutritional deficiencies (19 sources) Deficiency of macronutrients; 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: [Unspecified protein-calorie malnutrition] Onset: 12-30-2022 12-30-2022 Chronic Osteoporosis (9 sources) Age-related osteoporosis without current pathological fracture; 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: [Osteoporosis] Onset: 05-27-2020 Chronic Other aftercare (1 source) Other snf (current) drug therapy; 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: [OTH LONG-TERM CURRENT DRUG THERAPY] Onset: 12-24-2022 Episodic Other and ill-defined heart disease (5 sources) Severe left ventricular systolic dysfunction; 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: [Heart disease, unspecified] Onset: 07-09-2021 07-09-2021 Chronic Other circulatory disease (2 sources) Acrocyanosis; 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: [Other specified peripheral vascular diseases] 11-07-2023 Chronic Other diseases of veins and lymphatics (1 source) Venous hypertension; 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: [Chronic venous hypertension (idiopathic) without complications of unspecified lower extremity] 11-07-2023 Chronic Other diseases of veins and lymphatics (4 sources) Iliac vein compression syndrome; 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: [Compression of vein] 11-07-2023 Episodic Other diseases of veins and lymphatics (1 source) Vascular insufficiency; 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: [Venous insufficiency (chronic) (peripheral)] 01-18-2024 Episodic Other diseases of veins and lymphatics (1 source) Compression of vein; 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: [May-Thurner syndrome] Onset: 02-22-2024 Episodic Other lower respiratory disease (5 sources) Bronchiolitis obliterans organizing pneumonia; 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: [Cryptogenic organizing pneumonia] Onset: 09-02-2016 09-02-2016 Chronic Other lower respiratory disease (1 source) Shortness of breath; 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: [Shortness of breath] Onset: 09-22-2023 Episodic Other lower respiratory disease (1 source) Cough Onset: 09-22-2023 Episodic Other lower respiratory disease (1 source) Shortness of breath Onset: 09-22-2023 Episodic Other skin disorders (1 source) Disorder of skin color; 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: [Disorder of pigmentation, unspecified] 11-07-2023 Episodic Other upper respiratory disease (5 sources) Allergic rhinitis; 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: [Allergic rhinitis, unspecified] Onset: 06-26-2020 06-26-2020 Chronic Melanie-; endo-; and myocarditis; cardiomyopathy (except that caused by tuberculosis or sexually transmitted disease) (10 sources) Cardiomyopathy; 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: [Cardiomyopathy, unspecified] Onset: 06-02-2021 Chronic Peripheral and visceral atherosclerosis (3 sources) Peripheral vascular disease, unspecified; 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: [Peripheral vascular disease, unspecified] Onset: 03-24-2023 Chronic Respiratory failure; insufficiency; arrest (adult) (14 sources) Dependence on supplemental oxygen; 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: [Chronic hypoxemic respiratory failure] Onset: 11-10-2016 11-10-2016 Chronic Respiratory failure; insufficiency; arrest (adult) (1 source) Acute respiratory failure, unspecified whether with hypoxia or hypercapnia; 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: [Acute respiratory failure, unspecified whether with hypoxia or hypercapnia] Onset: 09-22-2023 Episodic Substance-related disorders (11 sources) Nicotine dependence; 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: [Nicotine dependence, unspecified, uncomplicated] Onset: 09-28-2012 09-28-2012 Chronic Unclassified (1 source) sent for pulm dr for something with lungs diff breathing? -checked in by Onset: 09-22-2023 Past or Other Problems Problem Classification Problem Date Documented Da te Episodic/Chronic E Codes: Natural/environment (1 source) Other and unspecified overexertion or strenuous movements or postures, initial encounter; 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: [OTH AND UNS OVREXRT/STRN MVMT/POS INT] Onset: 09-02-2022 Episodic Immunizations and screening for infectious disease (4 sources) 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; 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: [Carrier of other specified bacterial diseases] Onset: 09-09-2023 11-10-2023 Episodic Mood disorders (3 sources) Mood disorders Onset: 09-23-2023 09-23-2023 Open wounds of extremities (5 sources) Open wound of elbow; 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: [Unspecified open wound of unspecified elbow, initial encounter] Onset: 10-29-2022 10-29-2022 Episodic Other aftercare (1 source) 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; 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: [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] Onset: 09-02-2022 Episodic Other lower respiratory disease (5 sources) Chronic cough; 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: [Chronic cough] Onset: 09-02-2016 09-02-2016 Episodic Other lower respiratory disease (5 sources) Nodule of lung; 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: [Solitary pulmonary nodule] Onset: 08-25-2017 08-25-2017 Episodic Other lower respiratory disease (5 sources) Imaging of lung abnormal ; 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: [Other nonspecific abnormal finding of lung field] Onset: 09-02-2016 Resolved: 01-27-2023 01-27-2023 Episodic Other lower respiratory disease (5 sources) Hemoptysis; 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: [Hemoptysis] Onset: 03-13-2020 Resolved: 01-01-2021 01-01-2021 Episodic Other non-traumatic joint disorders (5 sources) Swollen ankle region; 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: [Effusion, unspecified ankle] Onset: 04-09-2021 04-09-2021 Episodic Other screening for suspected conditions (not mental disorders or infectious disease) (6 sources) Patient encounter status; 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: [Encounter for screening mammogram for malignant neoplasm of breast] Onset: 04-30-2021 Episodic Other skin disorders (1 source) Disorder of pigmentation, unspecified; 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: [Discoloration of skin of multiple sites of lower extremity] Onset: 11-07-2023 Episodic Sprains and strains (4 sources) Strain of muscle, fascia and tendon of other parts of biceps, right arm, initial encounter; 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: [STRN MSC F TEND OTH PRT BIC RA INIT] Onset: 09-01-2022 Episodic Results Test Name Value Interpretation Reference Range Facility CTA Abdominal vessels and Pe lvis vessels W contrast Isiah 03-30-2024 IMPRESSION: Poor opacification of the venous system, possibly due to contrast bolus timing. There appears to be moderate to severe compression of the left common iliac vein between the right common iliac artery and vertebral body, raising concern for May Thurner syndrome. Transcribe Date/Time: Mar 30 2024 11:29A Dictated by: MARIA TERESA AGOSTO MD This examination was interpreted and the report reviewed and electronically signed by: MARIA TERESA AGOSTO MD on Mar 30 2024 11:38AM EST Thank you for allowing us to participate in the care of your patient. Should there be any questions regarding this interpretation, please call [phone]. If you are unable to reach us at the number above, please feel free to contact [facility] at [phone]. 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 R/o MTS or other cause of vein compressive physiology. May-Thurner syndrome TECHNIQUE: High-resolution contrast-enhanced helical CT of the abdomen and pelvis was performed timed to the venous phase via 100 and 140 sec delays. 3-D processing was provided. 120 ml of Omnipaque 350 was injected IV during the examination. The study was performed without oral contrast. The patient tolerated the injection without complications. Dose-Length Product (DLP): 546 mGy*cm. CT Dose Reduction Employed: Automated exposure control (AEC) COMPARISON: None. RESULT: Limitations: Venous phase imaging limits evaluation of arterial structures VASCULAR FINDINGS: Images of the aorta demonstrate diffuse atherosclerotic change. Poor opacification of the IVC, though the IVC appears patent. The left common iliac vein appears moderately distended. Decompressed between the right common iliac artery and vertebral body. No obvious filling defects within the iliac and femoral veins. NONVASCULAR FINDINGS: Lower chest: Diffuse emphysematous changes. Liver: Normal morphology. Numerous hepatic cysts. Bile ducts: Not dilated. Gallbladder: Surgically absent Pancreas: Normal. Spleen: Normal size. No mass. Adrenal glands: Within normal limits. Kidneys: No mass. No hydronephrosis. Ureters: Normal. Bladder: Normal. Retroperitoneum: No lymphadenopathy. Peritoneum: No ascites. Mesentery: Normal. Stomach: Not distended. Small bowel: Not distended. Colon: Not distended. Appendix: not identified. Extraperitoneal Pelvis: No lymphadenopathy. Uterus: Absent. Ovaries: No adnexal mass Abdominal wall: Normal. Bones: No acute fractures or destructive bone lesion. 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 R/o MTS or other cause of vein compressive physiology. May-Thurner syndrome TECHNIQUE: High-resolution contrast-enhanced helical CT of the abdomen and pelvis was performed timed to the venous phase via 100 and 140 sec delays. 3-D processing was provided. 120 ml of Omnipaque 350 was injected IV during the examination. The study was performed without oral contrast. The patient tolerated the injection without complications. Dose-Length Product (DLP): 546 mGy*cm. CT Dose Reduction Employed: Automated exposure control (AEC) COMPARISON: None. RESULT: Limitations: Venous phase imaging limits evaluation of arterial structures VASCULAR FINDINGS: Images of the aorta demonstrate diffuse atherosclerotic change. Poor opacification of the IVC, though the IVC appears patent. The left common iliac vein appears moderately distended. Decompressed between the right common iliac artery and vertebral body. No obvious filling defects within the iliac and femoral veins. NONVASCULAR FINDINGS: Lower chest: Diffuse emphysematous changes. Liver: Normal morphology. Numerous hepatic cysts. Bile ducts: Not dilated. Gallbladder: Surgically absent Pancreas: Normal. Spleen: Normal size. No mass. Adrenal glands: Within normal limits. Kidneys: No mass. No hydronephrosis. Ureters: Normal. Bladder: Normal. Retroperitoneum: No lymphadenopathy. Peritoneum: No ascites. Mesentery: Normal. Stomach: Not distended. Small bowel: Not distended. Colon: Not distended. Appendix: not identified. Extraperitoneal Pelvis: No lymphadenopathy. Uterus: Absent. Ovaries: No adnexal mass Abdominal wall: Normal. Bones: No acute fractures or destructive bone lesion. IMPRESSION IMPRESSION: Poor opacification of the venous system, possibly due to contrast bolus timing. There appears to be moderate to severe compression of the left common iliac vein between the right common iliac artery and vertebral body, raising concern for May Thurner syndrome. Transcribe Date/Time: Mar 30 2024 11:29A Dictated by: MARIA TERESA AGOSTO MD This examination was interpreted and the report reviewed and electronically signed by: MARIA TERESA AGOSTO MD on Mar 30 2024 11:38AM EST Thank you for allowing us to participate in the care of your patient. Should there be any questions regarding this interpretation, please call [phone]. If you are unable to reach us at the number above, please feel free to contact [facility]Radiology at [phone]. [facility] Radiology Study observation (narrative) [facility] CTA Abdominal vessels and Pe lvis vessels W contrast IVOrdered By: [facility] Provider on 03-30-2024 [facility] LOWER RESPIRATORY CULTUREon 03-26-2024 Bacteria identified Respiratory culture Nom (Sput) GRAM STAIN >25 WHITE BLOOD CELLS/LPF 0 SQUAMOUS EPITHELIAL CELLS/LPF 0 CILIATED EPITHELIAL CELLS/LPF MODERATE GRAM POSITIVE COCCI IN CHAINS CULTURE RESULTS MODERATE PSEUDOMONAS AERUGINOSA FEW PSEUDOMONAS AERUGINOSA ALONG WITH MANY NORMAL ORAL DEBORA [ S = SUSCEPTIBLE R = RESISTANT I = INTERMEDIATE S-DO = Susceptible-dose dependent NS = Non-suscceptible NO = No Interpretation ] Organism: PSEUDOMONAS AERUGINOSA Antibiotic Interpretation TERESA Status CIPROFLOXACIN S <=0.25 F LEVOFLOXACIN S 1 F MEROPENEM S 0.5 F TOBRAMYCIN S <=1 F PIPERACIL/TAZOBACTAM S 8 F [ S = SUSCEPTIBLE R = RESISTANT I = INTERMEDIATE S-DO = Susceptible-dose dependent NS = Non-suscceptible NO = No Interpretation ] Organism: PSEUDOMONAS AERUGINOSA Antibiotic Interpretation TERESA Status CIPROFLOXACIN S <=0.25 F LEVOFLOXACIN S 0.25 F MEROPENEM S 1 F TOBRAMYCIN S <=1 F PIPERACIL/TAZOBACTAM S <=4 F [ S = SUSCEPTIBLE R = RESISTANT I = INTERMEDIATE S-DO = Susceptible-dose dependent NS = Non-suscceptible NO = No Interpretation ] Organism: PSEUDOMONAS AERUGINOSA Antibiotic Interpretation TEREAS Status CEFEPIME S F [ S = SUSCEPTIBLE R = RESISTANT I = INTERMEDIATE S-DO = Susceptible-dose dependent NS = Non-suscceptible NO = No Interpretation ] Organism: PSEUDOMONAS AERUGINOSA Antibiotic Interpretation TERESA Status CEFEPIME S F Susceptible [facility] Comment on above: Performed By: #### 6 24-7 #### [facility] ([id number]) [address] [place] [address] [address] [place] [address] CT LOW DOSE LUNG SCREENINGon 03-24-2024 CT LOW DOSE LUNG SCREENING CT LOW DOSE LUNG SCREENING CLINICAL INFORMATION: Screening visit: Personal history of tobacco use/personal history of nicotine dependence. Lung cancer screening. The patient is a current smoker. The patient has a 28 pack year history of smoking. COMPARISON: 03/04/2023 TECHNIQUE: Low dose CT chest performed without contrast with coronal and sagittal and maximum intensity projection reconstructed images. Maximum intensity projection images generated to increase the sensitivity of pulmonary nodule detection. All CT scans at this facility use dose modulation, iterative reconstruction, and/or weight based dosing when appropriate to reduce radiation dose to as low as reasonably achievable. Automated exposure control was utilized. Computer aided detection for pulmonary nodules?was performed utilizing [employer] software.? FINDINGS: Diagnostic quality: Satisfactory. Evaluation of the left upper lung inhibited by volume loss. Lung nodules: No suspicious pulmonary nodules. Juxtapleural densities of less than 5 mm appear stable. Lungs and pleural spaces: Centrilobular and paraseptal emphysematous changes. Bronchiectasis and volume loss in the left upper lung with areas of irregular opacity which are stable and consistent with scarring. Some pleural calcification is present. Mediastinum: No mass or adenopathy. Ascending thoracic aortic diameter: 3.7 cm. Pulmonary artery diameter: 3.1 cm. Heart size: Within normal limits Coronary calcification: Moderate Pericardial effusion: None Other findings: Degenerative changes within the thoracic spine. Hypodense hepatic lesions compatible with cysts. IMPRESSION: Changes of COPD with bronchiectasis and scarring. No suspicious pulmonary nodules. Lung Rads Category: 2- Benign appearance or behavior Recommendation: CT Low Dose Lung Screening 1 year Finalized by Adithya Burgess MD on 03/24/2024 10:18 AM [address] 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 Physician:Roxana Car MD Requested Prescriptions No prescriptions requested or ordered in this encounter Yuki Car MD 03/13/2024 5:46 PM Signed Please let patient know that although there were some areas of reduced visualization due to overlying bowel gas, the left common iliac and external iliac vein were widely open and had normal waveforms. Given the areas of poor visualization they could not definitively rule out May Thurner syndrome, but I think it's unlikely to be present (or unlikely to be present to a problematic degree) based on the open segments of vein that we do see. She would need CT venogram if desiring additional testing, otherwise can just stay with management with compression socks. Frantz Becerra RN 03/14/2024 9:[address] Car's orders, pt notified of the following: Please let patient know that although there were some areas of reduced visualization due to overlying bowel gas, the left common iliac and external iliac vein were widely open and had normal waveforms. Given the areas of poor visualization they could not definitively rule out May Thurner syndrome, but I think it's unlikely to be present (or unlikely to be present to a problematic degree) based on the open segments of vein that we do see. She would need CT venogram if desiring additional testing, otherwise can just stay with management with compression socks. Pt verbalized understanding of all results. Pt has no further questions and would like to procedure with CT Venogram. Will notify Dr. Car to place order. Pt notified manager front will reach out to schedule test once the order was placed. Pt in agreement. JULIO Kearns Deborah, MD 03/15/2024 8:55 AM Signed Order in [place] for CTV. Allergies As of Date: 03/05/2024 Noted Allergy Reaction PANTOPRAZOLE 04/08/2021 14 - Other: See Comments CARBINOXAMINE-PSEUDOEP HEDRINE 09/02/2016 14 - Other: See Comments CEPHALEXIN 07/31/2012 4 - Hives Comments: Rash. Trouble breathing. 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 Discontinue saline lock post exam. If Pt. has a central line or IVAD, may access for administration according to line specific nursing protocol. Once exam is complete flush line and de-access according to line specific nursing protocol in the CT contrast administration guidelines link.Disp: 1 EachRfl: 0 Prescriptions as of 03/15/2024 - iv contrast (will be provided with radiology test) CTA ABD/PEL - No IV access, insert saline lock prior to the sedation, infusion, injection for imaging exam. Discontinue saline lock post exam. If Pt. has a central line or IVAD, may access for administration according to line specific nursing protocol. Once exam is complete flush line and de-access according to line specific nursing protocol in the CT contrast administration guidelines link. - sodium chloride (NEBUSAL) 3 % nebulizer solution INHALE CONTENTS OF 1 VIAL VIA NEBULIZER EVERY DAY - svnuowzuex-uucqcnvx-vj rmoterol (BREZTRI AEROSPHERE) 160-9-4.8 mcg/actuation HFA aerosol inhaler Inhale 2 Puffs as instructed. - torsemide (DEMADEX) 10 mg tablet Take 1 tablet by mouth once daily as needed. - empagliflozin (JARDIANCE) 10 mg tablet Take 1 tablet by mouth once daily. - metoprolol succinate ER (TOPROL XL) 50 mg 24 hr tablet Take 1 tablet by mouth twice daily. - sacubitril-valsartan (ENTRESTO) 49-51 mg tablet Take 1 tablet by mouth twice daily. - acetaminophen (TYLENOL) 325 mg tablet Ta (more content not included)... Normal [facility] VISCERAL VEIN COMPLETE VA S LABon 02-22-2024 US VISCERAL VEIN COMPLETE VAS LAB Non-Invasive Vascular Laboratory [facility] Visceral Venous Duplex Bilateral/Complete Date of service/time: 02/22/2024 10:55:42 AM Name: MRS. MARCELA BREWER Date of : 1950 Age: 73 years Gender: F Clinical Indication Leg discoloration, venous hypertension left > right, rule out May Thurner Syndrome. TECHNIQUE -------- A venous duplex ultrasound examination was performed, including grayscale imaging with compression maneuvers and color Doppler and spectral Doppler examination with response to respiration of the below mentioned veins. FINDINGS -------- Inferior vena cava Doppler: normal flow. Right external iliac vein Doppler: normal flow. Left common iliac vein Doppler: normal flow. Left external iliac vein Doppler: normal flow. IMPRESSION No evidence of venous thrombosis by color and spectral Doppler maneuvers in the inferior vena cava from proximal to mid. Unable to visualize distal IVC due to overlying bowel gas. Unable to visualize the right common iliac vein due to bowel gas. No evidence of venous thrombosis by color and spectral Doppler maneuvers in the right external iliac vein. No evidence of venous thrombosis by color and spectral Doppler maneuvers in the left common iliac vein. No evidence of venous thrombosis by color and spectral Doppler maneuvers in the left external iliac vein. RIGHT SIDE Common iliac vein not visualize due to bowel gas. LEFT SIDE Iliac vein bifurcation not visualized due to overlying bowel gas, cannot rule out May Thurner Syndrome. May wish other means of evaluation if clinically indicated. Technologist: Saurabh Warner RVT, [facility] Ordering physician: YUKI CAR Interpreting physician: Magali Beckford MD, CRISTÓBAL Final CC [employer] [facility] : [id number] See Link below for Image Normal [facility] CBC AND AUTO DIFFon 02-18-20 24 Eosinophils (Bld) [#/Vol] 0.1 10*3/uL Normal 0.0-0.4 [facility] Comment on above: Performed By: #### C NIEVES CBCA #### [facility] ([id number]) [address] [place] [id number] Eosinophils/100 WBC (Bld) 1.0 % Normal [facility] Comment on above: Performed By: #### C NIEVES, CBCA #### [facility] ([id number]) [address] [place] [address] 12916 Erythrocyte distribution width (RBC) [Ratio] 14.9 % Normal 11.5-15.0 [facility] Comment on above: Performed By: #### C MP, CBCA #### [facility] ([id number]) [address] [place] [address] 81244 Hematocrit (Bld) [Volume fraction] 41.2 % Normal 35-47 [facility] Comment on above: Performed By: #### C MP, CBCA #### [facility] ([id number]) [address] [place] [address] 61141 Hemoglobin (Bld) [Mass/Vol] 14.2 g/dL Normal 11.7-15.5 [facility] Comment on above: Performed By: #### C MP, CBCA #### [facility] ([id number]) [address] [place] [address] 10700 LYMPHOCYTE, ATYPICAL 1.0 % Normal [facility] Comment on above: Performed By: #### C MP, CBCA #### [facility] ([id number]) [address] [place] [address] 25923 Lymphocytes (Bld) [#/Vol] 1.8 10*3/uL Normal 1.0-3.5 [facility] Comment on above: Performed By: #### C MP, CBCA #### [facility] ([id number]) [address] [place] [address] 64178 Lymphocytes/100 WBC (Bld) 16.0 % Normal [facility] Comment on above: Performed By: #### C MP, CBCA #### [facility] ([id number]) [address] [place] [address] 26253 MCH (RBC) [Entitic mass] 31.6 pg Normal 27-34 [facility] Comment on above: Performed By: #### C MP, CBCA #### [facility] ([id number]) [address] [place] [address] 37498 MCHC (RBC) [Mass/Vol] 34.5 g/dL Normal 32-36 [facility] Comment on above: Performed By: #### C MP, CBCA #### [facility] ([id number]) [address] [place] [address] 83896 MCV (RBC) [Entitic vol] 92 fL Normal 80-100 [facility] Comment on above: Performed By: #### C MP, CBCA #### [facility] ([id number]) [address] [place] [address] 46265 Monocytes (Bld) [#/Vol] 1.3 10*3/uL High 0-0.9 [facility] Comment on above: Performed By: #### C MP, CBCA #### [facility] ([id number]) [address] [place] [address] 03629 Monocytes/100 WBC (Bld) 12.0 % Normal [facility] Comment on above: Performed By: #### C MP, CBCA #### [facility] ([id number]) [address] [place] [address] 67630 Neutrophils (Bld) [#/Vol] 7.6 10*3/uL High 1.5-6.6 [facility] Comment on above: Performed By: #### C MP, CBCA #### [facility] ([id number]) [address] [place] [address] 56102 Platelet mean volume (Bld) [Entitic vol] 8.2 fL Normal 7-12 [facility] Comment on above: Performed By: #### C MP, CBCA #### [facility] ([id number]) [address] [place] [address] 57357 Platelets (Bld) [#/Vol] 391 10*3/uL Normal 150-450 [facility] Comment on above: Performed By: #### C MP, CBCA #### [facility] ([id number]) [address] [place] [address] 82540 RBC COUNT 4.50 X10E12/L Normal 3.80-5.20 [facility] Comment on above: Performed By: #### C MP, CBCA #### [facility] ([id number]) [address] [place] [address] 88005 SEG NEUTROPHIL 70.0 % Normal [facility] Comment on above: Performed By: #### C MP, CBCA #### [facility] ([id number]) [address] [place] [address] 21573 STOMATOCYTE 1+ Abnormal NONE [facility] Comment on above: Performed By: #### C MP, CBCA #### [facility] ([id number]) [address] [place] [address] [place] [address] TEARDROP 1+ Abnormal NONE [facility] Comment on above: Performed By: #### C MP, CBCA #### [facility] ([id number]) [address] [place] [address] 78308 WBC (Bld) [#/Vol] 10.8 10*3/uL Normal 4.0-11.0 [facility] Comment on above: Performed By: #### C MP, CBCA #### [facility] ([id number]) [address] [place] [address] 38873 COMPREHENSIVE METABOLIC PANE Dimitri 02-18-2024 Albumin [Mass/Vol] 3.7 g/dL Normal 3.2-5.3 [facility] Comment on above: Performed By: #### C MP, CBCA #### [facility] ([id number]) [address] [place] [address] 31503 ALP [Catalytic activity/Vol] 53 U/L Normal 39-130 [facility] Comment on above: Performed By: #### C NIEVES, CBCA #### [facility] ([id number]) [address] [place] [address] 14848 ALT [Catalytic activity/Vol] 12 U/L Normal 0-31 [facility] Comment on above: Performed By: #### C MP, CBCA #### [facility] ([id number]) [address] [place] [address] 01852 Anion gap [Moles/Vol] 7 mmol/L Normal 5-15 [facility] Comment on above: Performed By: #### C NIEVES, CBCA #### [facility] ([id number]) [address] [place] [address] 68947 AST [Catalytic activity/Vol] 14 U/L Normal 0-41 [facility] Comment on above: Performed By: #### C NIEVES, CBCA #### [facility] ([id number]) [address] [place] [address] 09432 Bilirubin [Mass/Vol] 0.6 mg/dL Normal 0.3-1.2 [facility] Comment on above: Performed By: #### C NIEVES, CBCA #### [facility] ([id number]) [address] [place] [address] 56888 Calcium [Mass/Vol] 8.9 mg/dL Normal 8.5-10.5 [facility] Comment on above: Performed By: #### C NIEVES, CBCA #### [facility] ([id number]) [address] [place] [address] 53999 Chloride [Moles/Vol] 94 mmol/L Low 98-109 [facility] Comment on above: Performed By: #### C NIEVES, CBCA #### [facility] ([id number]) [address] [place] [address] CO2 [Moles/Vol] 30 mmol/L Normal 22-32 [facility] Comment on above: Performed By: #### C COLEMAN PICKETT #### [facility] ([id number]) [address] [place] [address] 16270 Creatinine [Mass/Vol] 0.50 mg/dL Normal 0.40-1.00 [facility] Comment on above: Result Comment: METH OD TRACEABLE TO IDMS STANDARD Performed By: #### C COLEMAN PICKETT #### [facility] ([id number]) [address] [place] [address] 02212 eGFR (CKD-EPI) NON-RACE DEPENDENT >90 Normal >59 [facility] Comment on above: Result Comment: Reported eGFR is based on the CKD-EPI 2020 equation that does not use a race coefficient. Performed By: #### C COLEMAN PICKETT #### [facility] ([id number]) [address] [place] [address] 50389 Glucose [Mass/Vol] 100 mg/dL High 65-99 [facility] Comment on above: Performed By: #### C COLEMAN PICKETT #### [facility] ([id number]) [address] [place] [address] 57265 Potassium [Moles/Vol] 3.4 mmol/L Low 3.5-5.0 [facility] Comment on above: Performed By: #### C COLEMAN PICKETT #### [facility] ([id number]) [address] [place] [address] 90782 Protein [Mass/Vol] 7.2 g/dL Normal 6.0-8.0 [facility] Comment on above: Performed By: #### C COLEMAN PICKETT #### [facility] ([id number]) [address] [place] [address] 65055 Sodium [Moles/Vol] 131 mmol/L Low 134-146 [facility] Comment on above: Performed By: #### C NIEVES, CBCA #### [facility] ([id number]) [address] [place] [address] 61048 Urea nitrogen [Mass/Vol] 10 mg/dL Normal 5-27 [facility] Comment on above: Performed By: #### C NIEVES, CBCA #### [facility] ([id number]) [address] [place] [address] 18090 LOWER RESPIRATORY CULTUREon 02-08-2024 Bacteria identified Respiratory culture Nom (Sput) GRAM STAIN >25 WHITE BLOOD CELLS/LPF 10 to 24 SQUAMOUS EPITHELIAL CELLS/LPF 0 CILIATED EPITHELIAL CELLS/LPF FEW GRAM POSITIVE COCCI IN CHAINS FEW GRAM NEGATIVE DIPLOCOCCI RARE GRAM POSITIVE RODS RARE GRAM VARIABLE RODS CULTURE RESULTS MANY ENCAPSULATED PSEUDOMONAS AERUGINOSA ALONG WITH FEW NORMAL ORAL DEBORA [ S = SUSCEPTIBLE R = RESISTANT I = INTERMEDIATE S-DO = Susceptible-dose dependent NS = Non-suscceptible NO = No Interpretation ] Organism: PSEUDOMONAS AERUGINOSA Antibiotic Interpretation TERESA Status CEFEPIME S <=1 F CIPROFLOXACIN S <=0.25 F LEVOFLOXACIN S <=0.12 F MEROPENEM S <=0.25 F PIPERACILLIN S <=4 F TOBRAMYCIN S <=[address] [facility] Comment on above: Performed By: #### 6 24-7 #### [facility] ([id number]) [address] [place] [address], [address] [place] [address] CNOVon 01-12-2024 CNOV Office Visit (AMARI ) MARCELA BREWER ([id number]) 1950 F Date Time Provider Department 01/12/24 11:15 AM YUKI CAR During your visit today, we recorded the following information about you: Pulse Blood pressure Weight Height 97/minute 145/69 46.4 kg 1.549 m Yuki Car MD 01/18/2024 10:09 PM Signed [facility] [place] [facility] Department of Cardiovascular Medicine SECTION OF VASCULAR MEDICINE OUTPATIENT VISIT DATE January 12, 2024 OUTPATIENT VISIT TYPE ESTABLISHED Follow up regarding: leg discoloration, venous hypertension Allergies: is allergic to pantoprazole, carbinoxamine-pseudoep hedrine, cephalexin, metaxalone, metoclopramide, montelukast, sertraline, ciprofloxacin, erythromycin, and levofloxacin. Medications: Current Outpatient Medications Medication Sig sodium chloride (NEBUSAL) 3 % nebulizer solution INHALE CONTENTS OF 1 VIAL VIA NEBULIZER EVERY DAY gsurpfxtkz-xigfrncv-eh rmoterol (BREZTRI AEROSPHERE) 160-9-4.8 mcg/actuation HFA aerosol inhaler Inhale 2 Puffs as instructed. torsemide (DEMADEX) 10 mg tablet Take 1 tablet by mouth once daily as needed. empagliflozin (JARDIANCE) 10 mg tablet Take 1 tablet by mouth once daily. metoprolol succinate ER (TOPROL XL) 50 mg 24 hr tablet Take 1 tablet by mouth twice daily. sacubitril-valsartan (ENTRESTO) 49-51 mg tablet Take 1 tablet by mouth twice daily. acetaminophen (TYLENOL) 325 mg tablet Take 650 mg by mouth every 4 hours as needed. albuterol HFA (PROVENTIL HFA, VENTOLIN HFA) 90 mcg/actuation inhaler once daily as needed. atorvastatin (LIPITOR) 10 mg tablet Take 10 mg by mouth once daily. calcium carbonate-vitamin D3 1,000 mg-20 mcg (800 unit) tab Take 1 tablet by mouth once daily. esomeprazole (NEXIUM) 40 mg capsule Take 40 mg by mouth twice daily. levalbuterol (XOPENEX) 1.25 mg/3 mL nebulizer solution four times daily. ipratropium (ATROVENT) 0.02 % nebulizer solution Use 0.5 mg via nebulizer four times daily. LORazepam (ATIVAN) 1 mg tablet Take 1 mg by mouth four times daily. nitroglycerin (NITRO-BID) 2 % ointment as needed. Raynaud's predniSONE (DELTASONE) 10 mg tablet Take 10 mg by mouth once daily. roflumilast (DALIRESP) 500 mcg tab Take 500 mcg by mouth once daily. Vitamin E, dl, acetate, (VITAMIN E) 400 unit capsule Take 400 Units by mouth once daily. Current Facility-Administered Medications Medication Dose Route Frequency perflutren lipid microspheres 1.3 mL in NaCl (PF) 0.9% 10 mL injection (DEFINITY) INTRAVENOUS DIRECTED PRN sodium chloride 0.9 % (flush) 10 mL (BD POSIFLUSH) 10 mL INTRAVENOUS DIRECTED PRN Subjective: Seen for follow up. Accompanied by her . No change in leg symptoms. Was ill and had to reschedule leg venous US studies to be done locally. Reviewed images with her -- no significant superficial venous reflux to treat with venous ablation. From standpoint of ??-May Thurner physiology (given sx worse on left) imaging shows patent IVC and iliac veins, however, did not evaluate for presence of vein compression. She is amenable to have additional US images obtained at [facility] lab on [place]. Objective: BP 145/69 (BP Site: Right Arm, BP Position: Sitting, BP Cuff Size: Regular Adult) Pulse 97 Ht 154.9 cm (5' 1 ) Wt 46.4 kg (102 lb 4.8 oz) SpO2 100% BMI 19.33 kg/m? General: Alert and oriented, in no acute distress, pleasant mood. On supplemental O2 per NC. Skin: Healthy, intact, no ulcerations, no rashes. HEENT: Head normocephalic, extraocular muscles intact, sclera anicteric, nasal and oral mucosa moist and pink, neck supple, no JVD, no carotid bruit. Cardiovascular: Heart has a regular rate and rhythm without murmur. Respiratory: Lungs clear auscultation bilaterally. Gastrointestinal: Abdomen soft and nontender. No abdominal bruit or palpable mass. Musculoskeletal: No cyanosis or clubbing. Peripheral vascular: Dorsalis pedis and posterior tibial pulses 2+/2 bilaterally. Feet and toes warm pink and well perfused. Lower extremities: Bilateral feet L>R with purple color pooling in the toes and feet with dependency despite being fairly warm to the touch. Trace right ankle edema, mild 1-2+ pitting edema around the left ankle. Mild hemosiderin staining L>R lower leg and numerous small scattered superficial veins. Labs None Imaging Visceral venous US: [facility], [address] [place] [address], [place] [address] Patient Name: MARCELA BREWER MR#: [id number] : 1950 Exam Date: 01/10/2024 Ordering Doctor: Non-Staff Physician PROCEDURE: VC ULTRASOUND IVC LMT COMPARISON: None. 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 Normal [facility] CNOVon 11-07-2023 CNOV Office Visit (PERN ) MARCELA BREWER ([id number]) 1950 F Date Time Provider Department 11/07/23 12:45 PM YUKI CAR During your visit today, we recorded the following information about you: Pulse Blood pressure Weight 104/minute 145/72 49 kg Yuki Car MD 11/14/2023 12:54 AM Signed [facility] [place] [facility] Department of Cardiovascular Medicine SECTION OF VASCULAR MEDICINE OUTPATIENT VISIT DATE 11/07/2023 OUTPATIENT VISIT TYPE CONSULTATION Consult regarding: leg swelling and discoloration Consult requested by: Alex Riggins My final recommendations will be communicated back to the requesting physician by way of the shared medical record or by letter. 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 Now improved. 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 __HTN __COPD, emphysema __Bronchiectasis __GERD __Raynaud's phenomenon in toes -- longstanding __Tobacco use L>R ankle edema present for about 2 years. Saw PCP about 2mo before the [facility], would swell mildly but respond to being on treadmill. Had asked PCP for support socks Rx. After the [facility] event the legs became more swollen. Right side hardly swells. Left leg is swollen all of the time -- goes down a little bit overnight, and if she does not get compression promptly in the morning it will become very swollen. Ruining her shoes from stretching heel area. Takes torsemide only if she gains more than 4lb. Is on the same bottle since 04/2023. At home has been 105-106lb. No personal hx of thrombosis. No prior vein ablations. No leg surgeries. Hysterectomy approx age 40yo, endometriosis. Had PVR 03/24/2023 IMPRESSION RIGHT SIDE Resting right ankle brachial index: 1.12 Normal ankle brachial index at rest in the right leg. Right ankle: Normal at rest. Right small vessel disease versus vasoconstriction. LEFT SIDE Resting left ankle brachial index: 1.07 Normal ankle brachial index at rest in the left leg. Left ankle: Normal at rest. Allergies: is allergic to pantoprazole, carbinoxamine-pseudoep hedrine, cephalexin, metaxalone, metoclopramide, montelukast, sertraline, ciprofloxacin, erythromycin, and levofloxacin. Medications: sodium chloride (NEBUSAL) 3 % nebulizer solutionINHALE CONTENTS OF 1 VIAL VIA NEBULIZER EVERY DAYDisp: Rfl: npqbuoakdp-inugrdsd-al rmoterol (BREZTRI AEROSPHERE) 160-9-4.8 mcg/actuation HFA aerosol inhalerInhale 2 Puffs as instructed.Disp: Rfl: torsemide (DEMADEX) 10 mg tabletTake 1 tablet by mouth once daily as needed.Disp: 30 tabletRfl: 0 empagliflozin (JARDIANCE) 10 mg tabletTake 1 tablet by mouth once daily.Disp: 90 tabletRfl: 3 metoprolol succinate ER (TOPROL XL) 50 mg 24 hr tabletTake 1 tablet by mouth twice daily.Disp: 180 tabletRfl: 3 sacubitril-valsartan (ENTRESTO) 49-51 mg tabletTake 1 tablet by mouth twice daily.Disp: 180 tabletRfl: 3 acetaminophen (TYLENOL) 325 mg tabletTake 650 mg by mouth every 4 hours as needed.Disp: Rfl: albuterol HFA (PROVENTIL HFA, VENTOLIN HFA) 90 mcg/actuation inhaleronce daily as needed.Disp: Rfl: atorvastatin (LIPITOR) 10 mg tabletTake 10 mg by mouth once daily.Disp: Rfl: calcium carbonate-vitamin D3 1,000 mg-20 mcg (800 unit) tabTake 1 tablet by mouth once daily.Disp: Rfl: esomeprazole (NEXIUM) 40 mg capsuleTake 40 mg by mouth twice daily.Disp: Rfl: lamoTRIgine (LAMICTAL) 25 mg tabletTake 25 mg by mouth daily at bedtime.Disp: Rfl: levalbuterol (XOPENEX) 1.25 mg/3 mL nebulizer solutionfour times daily.Disp: Rfl: ipratropium (ATROVENT) 0.02 % nebulizer solutionUse 0.5 mg via nebulizer four times daily.Disp: Rfl: LORazepam (ATIVAN) 1 mg tabletTake 1 mg by mouth four times daily.Disp: Rfl: nitroglycerin (NITRO-BID) 2 % ointmentas needed. Raynaud'sDisp: Rfl: predniSONE (DELTASONE) 10 mg tabletTake 10 mg by mouth once daily.Disp: Rfl: roflumilast (DALIRESP) 500 mcg tabTake 500 mcg by mouth once daily.Disp: Rfl: Vitamin E, dl, acetate, (VITAMIN E) 400 unit capsuleTake 400 Units by mouth once daily.Disp: Rfl: (Patient not taking: Reported on 11/01/2023) Past medical history: has a past medical history of Bronchiectasis (HCC), Chronic obstructive pulmonary disease (COPD) (HCC), Combined systolic and diastolic heart failure (HCC), Emphysema lung (HCC), GERD (gastroesophageal reflux disease), Hypertension, and NICM (nonischemic cardiomyopathy) (HCC). Past surgical history: has a past surgical history that includes ablation (2013); hysterectomy hx; bx of breast; incisional (Bilateral) (more content not included)... Normal [facility] CNOVon 11-01-2023 CNOV Office Visit (CARD C HF THOMAS) MARCELA BREWER ([id number]) 1950 F Date Time Provider Department 11/01/23 3:15 PM ALEX RIGGINS CHF THOMAS During your visit today, we recorded the following information about you: Pulse Blood pressure Weight Height 115/minute 147/83 49 kg 1.549 m Alex Riggins MD 12/07/2023 4:36 PM Signed [facility] [place] [facility] SECTION OF HEART FAILURE and CARDIAC TRANSPLANT MEDICINE OUTPATIENT VISIT DATE December 07, 2023 OUTPATIENT VISIT TYPE Established Patient PRIMARY CARE PHYSICIAN: Luiz Tadeo MD ([facility]) [address] [place] [address] CHIEF COMPLAINT: Follow up NURSING INTAKE (Patient?s concerns and/or recent hospitalizations/ER visits): HF Nursing Assessment: Interim Hospitalizations and/or ER visits: 09/22/23 Chest Pain: no Skipping or irregular heartbeats: no Shortness of breath at rest: no Shortness of breath with activity: yes Cough: yes Waking up in the middle of the night gasping for air: no Lightheadedness or dizziness: no Feeling like you are going to pass out: no Actually passing out: no Poor energy level: yes Unintentional weight gain: no Unintentional weight loss: no Swelling in your legs,feet, abdomen: yes Filling up quickly when you eat: yes HISTORY OF PRESENT ILLNESS: 73 year old woman with severe COPD, 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 I advised increasing to high dose sacubitril/valsartan but this was precluded by recrudescent hyperkalemia and she has remained on a backbone of moderate dose ARNI, empagliflozin 10mg, metoprolol succinate 50mg BID, and spironolactone 25mg daily. Overall she has done very well to this with interval recovery in LVEF by both CMR and TTE. She has done overall well since our last visit - remains off of spironolactone due to intermittent hyponatremia but tolerating metoprolol and Entresto mid-dose. Still smoking. No other acute changes. 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) Emphysema lung (HCC) GERD (gastroesophageal reflux disease) Hypertension NICM (nonischemic cardiomyopathy) (HCC) PAST SURGICAL HISTORY Procedure Laterality Date ABLATION 2013 APPENDECTOMY BX OF BREAST; INCISIONAL Bilateral HYSTERECTOMY HX REMOVAL GALLBLADDER SURGICAL throat nodes removed SOCIAL HISTORY Social History Tobacco Use Smoking status: Every Day Types: Cigarettes Smokeless tobacco: Never Tobacco comments: - cigaretts daily Substance Use Topics Alcohol use: Not Currently Drug use: Never FAMILY HISTORY Problem Relation Age of Onset Arthritis Mother Heart Attack Father killed 2/3 of heart Heart Father Heart Attack Brother CABG x 4 ALLERGIES: ALLERGIES Allergen Reactions Pantoprazole Other: See Comments Carbinoxamine-Pseud* Other: See Comments Cephalexin Hives Rash. Trouble breathing. Can tolerate 250mg's but not 500mg's Spoke with RN confirmed with pt: Went to ER; pt told not to take keflex again Metaxalone Other: See Comments Metoclopramide Intolerance Montelukast Other: See Comments Sertraline Swelling Ciprofloxacin Rash Erythromycin GI Upset Levofloxacin Rash, Swelling Tongue swelling CURRENT MEDICATIONS: yecvcujtrs-gkaaudqs-nq rmoterol (BREZTRI AEROSPHERE) 160-9-4.8 mcg/actuation HFA aerosol inhalerInhale 2 Puffs as instructed.Disp: Rfl: empagliflozin (JARDIANCE) 10 mg tabletTake 1 tablet by mouth once daily.Disp: 90 tabletRfl: 3 metoprolol succinate ER (TOPROL XL) 50 mg 24 hr tabletTake 1 tablet by mouth twice daily.Disp: 180 tabletRfl: 3 sacubitril-valsartan (ENTRESTO) 49-51 mg tabletTake 1 tablet by mouth twice daily.Disp: 180 tabletRfl: 3 acetaminophen (TYLENOL) 325 mg tabletTake 650 mg by mouth every 4 hours as needed.Disp: Rfl: albuterol HFA (PROVENTIL HFA, VENTOLIN HFA) 90 mcg/actuation inhaleronce daily as needed.Disp: Rfl: atorvastatin (LIPITOR) 10 mg tabletTake 10 mg by mouth once daily.Disp: Rfl: calcium carbonate-vitamin D3 1,000 mg-20 mcg (800 unit) tabTake 1 tablet by mouth once daily.Disp: Rfl: esomeprazole (NEXIUM) 40 mg capsuleTake 40 mg by mouth twice daily.Disp: Rfl: lamoTRIgine (LAMICTAL) 25 mg tabletTake 25 mg by mouth daily at bedtime. (more content not included)... Normal [facility] BASIC METABOLIC PANLon 09-24 Anion gap [Moles/Vol] 4 mmol/L Low 5-15 [facility] Comment on above: Performed By: #### C BCA, 02023-7, CMP, 79890-9, 13279-4 #### [facility] ([id number]) [address], [address] [place] [address] Calcium [Mass/Vol] 9.1 mg/dL Normal 8.5-10.5 [facility] Comment on above: Performed By: #### C BCA, 71520-5, CMP, 67996-1, 99106-9 #### [facility] ([id number]) [address], [address] [place] [address] Chloride [Moles/Vol] 98 mmol/L Normal 98-109 [facility] Comment on above: Performed By: #### C BCA, 95118-0, CMP, 21592-6, 42004-8 #### [facility] ([id number]) [address], [address] [place] [address] CO2 [Moles/Vol] 36 mmol/L High 22-32 [facility] Comment on above: Performed By: #### C BCA, 63222-4, CMP, 32011-3, 99268-0 #### [facility] ([id number]) [address], [address] [place] [address] Creatinine [Mass/Vol] 0.49 mg/dL Normal 0.40-1.00 [facility] Comment on above: Result Comment: METH OD TRACEABLE TO IDMS STANDARD Performed By: #### C BCA, 85102-4, CMP, 26059-7, 65212-3 #### [facility] ([id number]) [address], [address] [address] [place] [address] eGFR (CKD-EPI) NON-RACE DEPENDENT >90 Normal >59 [facility] Comment on above: Result Comment: Reported eGFR is based on the CKD-EPI 2020 equation that does not use a race coefficient. Performed By: #### C BCA, 43227-9, CMP, 29839-5, 45477-9 #### [facility] ([id number]) [address], [address] [place] [address] Glucose [Mass/Vol] 96 mg/dL Normal 65-99 [facility] Comment on above: Performed By: #### C BCA, 10992-1, CMP, 69008-1, 06860-4 #### [facility] ([id number]) [address], [address] [place] [address] Potassium [Moles/Vol] 3.5 mmol/L Normal 3.5-5.0 [facility] Comment on above: Performed By: #### C BCA, 90295-9, CMP, 49009-1, 26693-5 #### [facility] ([id number]) [address], [address] [place] [address] Sodium [Moles/Vol] 138 mmol/L Normal 134-146 [facility] Comment on above: Performed By: #### C BCA, 34119-6, CMP, 72866-8, 93744-7 #### [facility] ([id number]) [address], [address] [place] [address] Urea nitrogen [Mass/Vol] 12 mg/dL Normal 5-27 [facility] Comment on above: Performed By: #### C BCA, 82139-7, CMP, 05696-1, 57102-7 #### [facility] ([id number]) [address], [address] [place] [address] Natriuretic peptide B [Mass/ Vol]on 09-24-2023 Natriuretic peptide B (Bld) [Mass/Vol] 96 pg/mL Normal <100.0 [facility] Comment on above: Performed By: #### C BCA, 23645-6, CMP, 36503-5, 92352-0 #### [facility] ([id number]) [address], [address] [place] [address] BASIC METABOLIC PANLon 09-23 Anion gap [Moles/Vol] 8 mmol/L Normal 5-15 [facility] Comment on above: Performed By: #### C BCA, 91788-4, CMP, 29064-6, 44605-3 #### [facility] ([id number]) [address], [address] [place] [address] Calcium [Mass/Vol] 9.3 mg/dL Normal 8.5-10.5 [facility] Comment on above: Performed By: #### C BCA, 27423-2, CMP, 19725-9, 33965-1 #### [facility] ([id number]) [address], [address] [place] [address] Chloride [Moles/Vol] 98 mmol/L Normal 98-109 [facility] Comment on above: Performed By: #### C BCA, 01977-0, CMP, 64817-3, 68846-0 #### [facility] ([id number]) [address], [address] [place] [address] CO2 [Moles/Vol] 30 mmol/L Normal 22-32 [facility] Comment on above: Performed By: #### C BCA, 90664-9, CMP, 03456-3, 20025-0 #### [facility] ([id number]) [address], [address] [place] [address] Creatinine [Mass/Vol] 0.49 mg/dL Normal 0.40-1.00 [facility] Comment on above: Result Comment: METH OD TRACEABLE TO IDMS STANDARD Performed By: #### C BCA, 65343-7, CMP, 75172-8, 87112-5 #### [facility] ([id number]) [address], [address] [place] [address] eGFR (CKD-EPI) NON-RACE DEPENDENT >90 Normal >59 [facility] Comment on above: Result Comment: Reported eGFR is based on the CKD-EPI 2020 equation that does not use a race coefficient. Performed By: #### C BCA, 31486-5, CMP, 50548-9, 85984-1 #### [facility] ([id number]) [address], [address] [place] [address] Glucose [Mass/Vol] 92 mg/dL Normal 65-99 [facility] Comment on above: Performed By: #### C BCA, 59920-4, CMP, 88416-2, 94557-0 #### [facility] ([id number]) [address], [address] [place] [address] Potassium [Moles/Vol] 4.2 mmol/L Normal 3.5-5.0 [facility] Comment on above: Performed By: #### C BCA, 46985-4, CMP, 79920-4, 89417-9 #### [facility] ([id number]) [address], [address] [place] [address] Sodium [Moles/Vol] 136 mmol/L Normal 134-146 [facility] Comment on above: Performed By: #### C BCA, 78719-0, CMP, 91428-7, 15528-0 #### [facility] ([id number]) [address], [address] [place] [address] Urea nitrogen [Mass/Vol] 10 mg/dL Normal 5-27 [facility] Comment on above: Performed By: #### C BCA, 83297-6, CMP, 11503-6, 79804-4 #### [facility] ([id number]) [address], [address] [place] [address] CBC AND AUTO DIFFon 09-23-19 24 ABSOLUTE BASOPHIL 0.0 X10E9/L Normal 0.0-0.2 [facility] Comment on above: Performed By: #### C BCA, 07595-1, CMP, 24788-1, 16010-6 #### [facility] ([id number]) [address], [address] [place] [address] ABSOLUTE NEUTROPHIL 5.5 X10E9/L Normal 1.5-6.6 [facility] Comment on above: Performed By: #### C BCA, 07971-0, CMP, 25124-4, 42063-2 #### [facility] ([id number]) [address], [address] [place] [address] Basophils/100 WBC (Bld) 0.6 % Normal [facility] Comment on above: Performed By: #### C BCA, 18830-5, CMP, 61531-1, 51859-6 #### [facility] ([id number]) [address], [address] [place] [address] Eosinophils (Bld) [#/Vol] 0.0 10*3/uL Normal 0.0-0.4 [facility] Comment on above: Performed By: #### C BCA, 66479-4, CMP, 71486-8, 04617-7 #### [facility] ([id number]) [address] [address] [place] [address] Eosinophils/100 WBC (Bld) 0.1 % Normal [facility] Comment on above: Performed By: #### C BCA, 69208-5, CMP, 69769-2, 97297-2 #### [facility] ([id number]) [address], [facility] [address] [place] [address] Erythrocyte distribution width (RBC) [Ratio] 14.6 % Normal 11.5-15.0 [facility] Comment on above: Performed By: #### C BCA, 47191-1, CMP, 32549-4, 60210-3 #### [facility] ([id number]) [address], [address] [place] [address] Hematocrit (Bld) [Volume fraction] 45.4 % Normal 35-47 [facility] Comment on above: Performed By: #### C BCA, 09624-3, CMP, 86843-2, 70534-2 #### [facility] ([id number]) [address] [address] [place] [address] Hemoglobin (Bld) [Mass/Vol] 14.9 g/dL Normal 11.7-15.5 [facility] Comment on above: Performed By: #### C BCA, 80678-4, CMP, 62881-1, 42276-0 #### [facility] ([id number]) [address] [address] [place] [address] Lymphocytes (Bld) [#/Vol] 0.8 10*3/uL Low 1.0-3.5 [facility] Comment on above: Performed By: #### C BCA, 25577-7, CMP, 82602-7, 71998-2 #### [facility] ([id number]) [address], [address] [place] [address] Lymphocytes/100 WBC (Bld) 10.3 % Normal [facility] Comment on above: Performed By: #### C BCA, 24142-4, CMP, 23550-5, 91137-0 #### [facility] ([id number]) [address], [address] [place] [address] MCH (RBC) [Entitic mass] 30.9 pg Normal 27-34 [facility] Comment on above: Performed By: #### C BCA, 01728-1, CMP, 49234-5, 26225-7 #### [facility] ([id number]) [address], [address] [place] [address] MCHC (RBC) [Mass/Vol] 32.8 g/dL Normal 32-36 [facility] Comment on above: Performed By: #### C BCA, 60737-6, CMP, 24781-1, 51029-9 #### [facility] ([id number]) [address], [address] [place] [address] MCV (RBC) [Entitic vol] 94 fL Normal 80-100 [facility] Comment on above: Performed By: #### C BCA, 62351-0, CMP, 15985-4, 27430-2 #### [facility] ([id number]) [address], [address] [place] [address] Monocytes (Bld) [#/Vol] 1.2 10*3/uL High 0-0.9 [facility] Comment on above: Performed By: #### C BCA, 97150-4, CMP, 24010-9, 83559-4 #### [facility] ([id number]) [address], [address] [place] [address] Monocytes/100 WBC (Bld) 15.6 % Normal [facility] Comment on above: Performed By: #### C BCA, 04057-4, CMP, 09467-5, 73513-3 #### [facility] ([id number]) [address], [address] [place] [address] Neutrophils/100 WBC (Bld) 73.4 % Normal [facility] Comment on above: Performed By: #### C BCA, 03515-0, CMP, 71665-7, 92252-3 #### [facility] ([id number]) [address], [address] [place] [address] Platelet mean volume (Bld) [Entitic vol] 8.3 fL Normal 7-12 [facility] Comment on above: Performed By: #### C BCA, 20379-4, CMP, 74618-4, 89340-9 #### [facility] ([id number]) [address], [address] [place] [address] Platelets (Bld) [#/Vol] 335 10*3/uL Normal 150-450 [facility] Comment on above: Performed By: #### C BCA, 63850-3, CMP, 09978-4, 35597-9 #### [facility] ([id number]) [address], [address] [place] [address] RBC COUNT 4.82 X10E12/L Normal 3.80-5.20 [facility] Comment on above: Performed By: #### C BCA, 84706-4, CMP, 08230-8, 17791-7 #### [facility] ([id number]) [address], [address] [place] [address] WBC (Bld) [#/Vol] 7.4 10*3/uL Normal 4.0-11.0 [facility] Comment on above: Performed By: #### C BCA, 76354-1, CMP, 64137-4, 66667-9 #### [facility] ([id number]) [address], [address] [place] [address] LOWER RESPIRATORY CULTUREon 09-23-2023 Bacteria identified Respiratory culture Nom (Sput) GRAM STAIN 10 to 24 WHITE BLOOD CELLS/LPF 0 to 1 SQUAMOUS EPITHELIAL CELLS/LPF 0 to 1 CILIATED EPITHELIAL CELLS/LPF RARE GRAM POSITIVE COCCI CULTURE RESULTS NORMAL ORAL DEBORA Normal [facility] Comment on above: Performed By: #### C BCA, 21250-7, CMP, 03876-0, 86077-7 #### [facility] ([id number]) [address], [address] [place] [address] VENOUS BLOOD GASon RYDER'S TEST Normal [facility] Comment on above: Performed By: #### C BCA, 79361-6, CMP, 73070-2, 90495-0 #### [facility] ([id number]) [address], [address] [place] [address] Base excess Calc (Bld) [Moles/Vol] 5.0 mmol/L High 0.0-2.0 [facility] Comment on above: Performed By: #### C BCA, 00729-9, CMP, 16453-3, 07792-0 #### [facility] ([id number]) [address], [address] [place] [address] Body temperature 98.6 [degF] Normal 37.0 [facility] Comment on above: Performed By: #### C BCA, 86223-2, CMP, 46179-3, 00508-3 #### [facility] ([id number]) [address], [address] [place] [address] HCO3 (Bld) [Moles/Vol] 34.1 mmol/L High 20.0-24.0 [facility] Comment on above: Performed By: #### C BCA, 28820-8, CMP, 53284-5, 58096-6 #### [facility] ([id number]) [address], [address] [place] [address] INSP. O2 CONC. 32 % Normal [facility] Comment on above: Performed By: #### C BCA, 42602-5, CMP, 50329-2, 52573-3 #### [facility] ([id number]) [address], [address] [place] [address] Oxygen saturation in Blood 35.0 % Low >80.0 [facility] Comment on above: Performed By: #### C BCA, 19361-3, CMP, 11213-9, 03651-1 #### [facility] ([id number]) [address], [address] [place] [address] OXYGEN SOURCE NC Normal [facility] Comment on above: Performed By: #### C BCA, 20901-8, CMP, 55959-2, 59659-3 #### [facility] ([id number]) [address], [address] [place] [address] PCO2, VENOUS 65.0 MMHG High 35-50 [facility] Comment on above: Performed By: #### C BCA, 87417-8, CMP, 83976-9, 01193-7 #### [facility] ([id number]) [address], [address] [place] [address] PH, VENOUS 7.327 Normal 7.320-7.420 [facility] Comment on above: Performed By: #### C BCA, 48703-7, CMP, 18091-4, 00894-8 #### [facility] ([id number]) [address], [address] [place] [address] PO2, VENOUS 24 MMHG Low 30-50 [facility] Comment on above: Performed By: #### C BCA, 88602-6, CMP, 31966-4, 86024-3 #### [facility] ([id number]) [address], [address] [place] [address] SAMPLE SITE N/A Normal [facility] Comment on above: Performed By: #### C BCA, 46718-2, CMP, 40278-7, 52374-6 #### [facility] ([id number]) [address], [address] [place] [address] SAMPLE TYPE VENOUS Normal [facility] Comment on above: Performed By: #### C BCA, 40978-6, CMP, 25583-6, 08768-7 #### [facility] ([id number]) [address], [address] [place] [address] XR CHEST 1 VWon 09-23-2023 XR CHEST 1 VW XR CHEST 1 VW XR CHEST 1 VW REASON FOR EXAM: 73 years old Female with PICC line placement. TECHNIQUE: Single portable AP view of the chest. COMPARISON: Chest radiograph dated 09/23/2023. FINDINGS: Right-sided PICC line with tip terminating in the SVC. Unchanged cardiac silhouette and mediastinum. No pneumothorax or pleural effusion. Unchanged pleural parenchymal abnormality within the left upper lung. No new or enlarging focal airspace opacity. Hyperinflated lungs. IMPRESSION: * Adequately positioned PICC line. * No significant interval change. Approved by Resident Aamir Coombs DO on 09/23/2023 11:57 AM IKal MD have personally reviewed the image(s) and agree with and/or edited the report Finalized by Kal Alcaraz MD on 09/23/2023 12:15 PM Normal [facility] BLOOD CULTUREon 09-22-2023 Bacteria identified Aer cx Nom (Bld) CULTURE RESULTS NO GROWTH 5 DAYS Normal [facility] Bacteria identified Aer cx Nom (Bld) CULTURE RESULTS NO GROWTH 5 DAYS Normal [facility] CBC AND AUTO DIFFon 09-22-19 24 ABSOLUTE BASOPHIL 0.0 X10E9/L Normal 0.0-0.2 [facility] Comment on above: Performed By: #### C BCA, 41838-7, CMP, 17208-7, 81956-4 #### [facility] ([id number]) [address], [address] [place] [address] ABSOLUTE NEUTROPHIL 8.0 X10E9/L High 1.5-6.6 [facility] Comment on above: Performed By: #### C BCA, 99441-1, CMP, 04071-0, 89839-6 #### [facility] ([id number]) [address], [address] [place] [address] Basophils/100 WBC (Bld) 0.4 % Normal [facility] Comment on above: Performed By: #### C BCA, 18856-9, CMP, 42467-4, 35326-2 #### [facility] ([id number]) [address], [address] [place] [address] Eosinophils (Bld) [#/Vol] 0.0 10*3/uL Normal 0.0-0.4 [facility] Comment on above: Performed By: #### C BCA, 57198-8, CMP, 00717-9, 58611-1 #### [facility] ([id number]) [address], [address] [place] [address] Eosinophils/100 WBC (Bld) 0.3 % Normal [facility] Comment on above: Performed By: #### C BCA, 19982-4, CMP, 23836-8, 49019-2 #### [facility] ([id number]) [address], [address] [place] [address] Erythrocyte distribution width (RBC) [Ratio] 14.8 % Normal 11.5-15.0 [facility] Comment on above: Performed By: #### C BCA, 90581-4, CMP, 11544-5, 44411-3 #### [facility] ([id number]) [address], [address] [place] [address] Hematocrit (Bld) [Volume fraction] 46.7 % Normal 35-47 [facility] Comment on above: Performed By: #### C BCA, 39321-4, CMP, 57140-9, 58505-4 #### [facility] ([id number]) [address], [address] [place] [address] Hemoglobin (Bld) [Mass/Vol] 15.6 g/dL High 11.7-15.5 [facility] Comment on above: Performed By: #### C BCA, 63496-7, CMP, 73136-6, 48227-2 #### [facility] ([id number]) [address], [address] [place] [address] Lymphocytes (Bld) [#/Vol] 0.4 10*3/uL Low 1.0-3.5 [facility] Comment on above: Performed By: #### C BCA, 84418-8, CMP, 43725-6, 03532-5 #### [facility] ([id number]) [address] [place] [address] Lymphocytes/100 WBC (Bld) 4.2 % Normal [facility] Comment on above: Performed By: #### C BCA, 07459-7, CMP, 11035-3, 06980-5 #### [facility] ([id number]) [address], [address] [place] [address] MCH (RBC) [Entitic mass] 31.1 pg Normal 27-34 [facility] Comment on above: Performed By: #### C BCA, 72546-2, CMP, 46013-0, 68133-8 #### [facility] ([id number]) [address], [address] [place] [address] MCHC (RBC) [Mass/Vol] 33.4 g/dL Normal 32-36 [facility] Comment on above: Performed By: #### C BCA, 22084-5, CMP, 62638-7, 79289-5 #### [facility] ([id number]) [address], [address] [place] [address] MCV (RBC) [Entitic vol] 93 fL Normal 80-100 [facility] Comment on above: Performed By: #### C BCA, 39221-2, CMP, 77213-8, 09539-9 #### [facility] ([id number]) [address] [place] [address] Monocytes (Bld) [#/Vol] 0.6 10*3/uL Normal 0-0.9 [facility] Comment on above: Performed By: #### Frances BCA, 19784-0, CMP, 12708-8, 96016-9 #### [facility] ([id number]) [address] [place] [address] Monocytes/100 WBC (Bld) 6.6 % Normal [facility] Comment on above: Performed By: #### Frances BCA, 23566-0, CMP, 63037-7, 68418-9 #### [facility] ([id number]) [address] [place] [address] Neutrophils/100 WBC (Bld) 88.5 % Normal [facility] Comment on above: Performed By: #### Frances BCA, 15838-7, CMP, 14776-4, 22837-5 #### [facility] ([id number]) [address], [address] [place] [address] Platelet mean volume (Bld) [Entitic vol] 7.8 fL Normal 7-12 [facility] Comment on above: Performed By: #### Frances BCA, 43124-3, CMP, 84957-4, 11014-1 #### [facility] ([id number]) [address], [address] [place] [address] Platelets (Bld) [#/Vol] 379 10*3/uL Normal 150-450 [facility] Comment on above: Performed By: #### C BCA, 57963-7, CMP, 55599-3, 10894-6 #### [facility] ([id number]) [address] [place] [address] RBC COUNT 5.02 X10E12/L Normal 3.80-5.20 [facility] Comment on above: Performed By: #### C BCA, 70895-5, CMP, 11900-6, 12465-5 #### [facility] ([id number]) [address], [address] [place] [address] WBC (Bld) [#/Vol] 9.0 10*3/uL Normal 4.0-11.0 [facility] Comment on above: Performed By: #### C BCA, 99120-8, CMP, 47217-8, 21737-2 #### [facility] ([id number]) [address], [address] [place] [address] COMPREHENSIVE METABOLIC PANE Dimitri 09-22-2023 Albumin [Mass/Vol] 4.2 g/dL Normal 3.2-5.3 [facility] Comment on above: Performed By: #### C BCA, 83944-9, CMP, 74887-9, 14444-1 #### [facility] ([id number]) [address] [place] [address] ALP [Catalytic activity/Vol] 54 U/L Normal 39-130 [facility] Comment on above: Performed By: #### C BCA, 04355-5, CMP, 03132-9, 67878-0 #### [facility] ([id number]) [address] [place] [address] ALT [Catalytic activity/Vol] 11 U/L Normal 0-31 [facility] Comment on above: Performed By: #### C BCA, 70639-8, CMP, 26938-0, 15335-0 #### [facility] ([id number]) [address] [place] [address] Anion gap [Moles/Vol] 7 mmol/L Normal 5-15 [facility] Comment on above: Performed By: #### C BCA, 63989-4, CMP, 54345-3, 42364-6 #### [facility] ([id number]) [address] [place] [address] AST [Catalytic activity/Vol] 14 U/L Normal 0-41 [facility] Comment on above: Performed By: #### C BCA, 44778-8, CMP, 58487-8, 53713-1 #### [facility] ([id number]) [address] [place] [address] Bilirubin [Mass/Vol] 0.4 mg/dL Normal 0.3-1.2 [facility] Comment on above: Performed By: #### C BCA, 66376-7, CMP, 93833-9, 50206-7 #### [facility] ([id number]) [address], [address] [place] [address] Calcium [Mass/Vol] 9.9 mg/dL Normal 8.5-10.5 [facility] Comment on above: Performed By: #### C BCA, 29626-3, CMP, 93474-2, 50907-2 #### [facility] ([id number]) [address], [address] [place] [address] Chloride [Moles/Vol] 95 mmol/L Low 98-109 [facility] Comment on above: Performed By: #### C BCA, 74596-7, CMP, 33464-8, 12825-0 #### [facility] ([id number]) [address], [address] [place] [address] CO2 [Moles/Vol] 31 mmol/L Normal 22-32 [facility] Comment on above: Performed By: #### C BCA, 49837-9, CMP, 55627-3, 50176-6 #### [facility] ([id number]) [address], [address] [place] [address] Creatinine [Mass/Vol] 0.59 mg/dL Normal 0.40-1.00 [facility] Comment on above: Result Comment: METH OD TRACEABLE TO IDMS STANDARD Performed By: #### C BCA, 82130-9, CMP, 03306-6, 64827-0 #### [facility] ([id number]) [address], [facility] [address] [place] [address] eGFR (CKD-EPI) NON-RACE DEPENDENT >90 Normal >59 [facility] Comment on above: Result Comment: Reported eGFR is based on the CKD-EPI 2020 equation that does not use a race coefficient. Performed By: #### C BCA, 56604-0, CMP, 50327-9, 09416-8 #### [facility] ([id number]) [address], [address] [place] [address] Glucose [Mass/Vol] 101 mg/dL High 65-99 [facility] Comment on above: Performed By: #### C BCA, 66035-5, CMP, 50720-7, 31971-5 #### [facility] ([id number]) [address], [address] [place] [address] Potassium [Moles/Vol] 4.2 mmol/L Normal 3.5-5.0 [facility] Comment on above: Performed By: #### C BCA, 54263-8, CMP, 17222-9, 65663-0 #### [facility] ([id number]) [address], [address] [place] [address] Protein [Mass/Vol] 7.1 g/dL Normal 6.0-8.0 [facility] Comment on above: Performed By: #### C BCA, 79314-9, CMP, 37627-8, 19871-4 #### [facility] ([id number]) [address], [address] [place] [address] Sodium [Moles/Vol] 133 mmol/L Low 134-146 [facility] Comment on above: Performed By: #### C BCA, 08965-4, CMP, 12503-9, 30591-9 #### [facility] ([id number]) [address], [address] [place] [address] Urea nitrogen [Mass/Vol] 10 mg/dL Normal 5-27 [facility] Comment on above: Performed By: #### C BCA, 61610-1, CMP, 83795-1, 31004-5 #### [facility] ([id number]) [address], [address] [place] [address] Lactate (P aisha) [Moles/Vol]o n 09-22-2023 LACTATE W/REFLEX 1.4 mmol/L Normal 0.4-2.0 [facility] Comment on above: Result Comment: Result did not trigger repeat Lactate, re-order if needed. Performed By: #### 3 2132-1 #### [facility] ([id number]) [address], [address] [place] [address] Natriuretic peptide B [Mass/ Vol]on 09-22-2023 Natriuretic peptide B (Bld) [Mass/Vol] 165 pg/mL High <100.0 [facility] Comment on above: Performed By: #### C BCA, 54172-5, CMP, 11424-0, 15684-0 #### [facility] ([id number]) [address], [address] [place] [address] Procalcitonin IA [Mass/Vol]o n 09-22-2023 PROCALCITONIN <0.05 Normal <0.05 [facility] Comment on above: Result Comment: NOTE <0.50 ng/mL - Low risk of severe sepsis and/or septic shock. <2.00 ng/mL - Recommend retesting within 6-24 hours. >2.00 ng/mL - High risk of sepsis and/or septic shock. Performed By: #### C [facility], 69903-4, [facility], 89841-6, 30858-5 #### [facility] ([id number]) [address] [place] [address], [address] [place] [address] SARS/FLU A+B/RSV by NAAT/Mol ecularon 09-22-2023 SARS/FLU A+B/RSV by NAAT/Molecular FLU A PCR Negative (qualifier value) FLU B PCR Negative (qualifier value) RSV by PCR Negative (qualifier value) SARS CoV 2 Not detected (qualifier value) NOTE The Xpert Xpress SARS-CoV-2/Flu/RSV Plus test is a rapid, multiplexed real-time RT-PCR test intended for the simultaneous qualitative detection and differentiation of SARS-CoV-2, influenza A, influenza B and respiratory syncytial virus (RSV) viral RNA from individuals suspected of respiratory viral infection consistent with COVID-19 by their healthcare provider. This test has not been validated in asymptomatic patients. The Xpert Xpress SARS-CoV-2 test is intended for use by qualified and trained operators who are performing tests using either [facility] or [employer] systems and is limited to laboratories that meet the CLIA requirements to perform high and moderate complexity tests. The Xpert Xpress SARS-CoV-2/Flu/RSV Plus is only for use under the Food and Drug Administration's Emergency Use Authorization. Results are for the simultaneous detection and differentiation of SARS-CoV-2, influenza A, influenza B and RSV nucleic acids in clinical specimens. SARS-CoV-2, influenza A, influenza B and RSV RNA identified by this test are generally detectable in upper respiratory samples during the acute phase of infection. Positive results are indicative of the presence of the identified virus, but do not rule out bacterial infection or co-infection with other pathogens not detected by this test. Clinical correlation with patient history and other diagnostic information is necessary to determine patient infection status. The agent detected may not be the definite cause of disease. Negative results do not preclude SARS-CoV-2, influenza A, influenza B and RSV infection and should not be used as the sole basis for treatment or other patient management decisions. Negative results must be combined with clinical observations, patient history and epidemiological information. An Invalid result may occur with specimen-associated inhibition unable to be resolved with specimen repeat. Fact Sheet for Healthcare Providers: https://www.[facility].gov/mi jessica/488008/download Fact Sheet for Patients: https://www.fda.gov/mi jessica/485459/download Normal [facility] Comment on above: Performed By: #### C OVFLR #### [facility] ([id number]) [address], [address] [place] [address] TROPONIN Ion 09-22-2023 Troponin I.cardiac [Mass/Vol] ng/mL Normal 0.00-0.04 [facility] Comment on above: Performed By: #### C BCA, 17941-9, CMP, 52528-8, 32666-2 #### [facility] ([id number]) [address], [address] [place] [address] Urine collection deviceon ER EXTRA URINES ER EXTRA URINE ORDER IN PROCESS Normal [facility] VENOUS BLOOD GASon RYDER'S TEST Normal [facility] Comment on above: Performed By: #### V BG #### [facility] ([id number]) [address] [place] [address] Base excess Calc (Bld) [Moles/Vol] 7.0 mmol/L High 0.0-2.0 [facility] Comment on above: Performed By: #### V BG #### [facility] ([id number]) [address] [place] [address] Body temperature 98.6 [degF] Normal 37.0 [facility] Comment on above: Performed By: #### V BG #### [facility] ([id number]) [address] [place] [address] HCO3 (Bld) [Moles/Vol] 37.7 mmol/L High 20.0-24.0 [facility] Comment on above: Performed By: #### V BG #### [facility] ([id number]) [address] [place] [address] INSP. O2 CONC. 32 % Normal [facility] Comment on above: Performed By: #### V BG #### [facility] ([id number]) [address] [place] [address] Oxygen saturation in Blood 43.0 % Low >80.0 [facility] Comment on above: Performed By: #### V BG #### [facility] ([id number]) [address] [place] [address] OXYGEN SOURCE NC [facility] Comment on above: Performed By: #### V BG #### [facility] ([id number]) [address] [place] [address] PCO2, VENOUS 76.8 MM[facility] High 35-50 [facility] Comment on above: Performed By: #### V BG #### [facility] ([id number]) [address] [place] [address] PH, VENOUS 7.299 Low 7.320-7.420 [facility] Comment on above: Performed By: #### V BG #### [facility] ([id number]) [address] [place] [address] PO2, VENOUS 28 MMHG Low 30-50 [facility] Comment on above: Performed By: #### V BG #### [facility] ([id number]) [address] [place] [address] SAMPLE SITE N/A [facility] Comment on above: Performed By: #### V BG #### [facility] ([id number]) [address] [place] [address] SAMPLE TYPE VENOUS Normal [facility] Comment on above: Performed By: #### V BG #### [facility] ([id number]) [address] [place] [address] XR CHEST 2 VWSon 09-22-2023 XR CHEST 2 VWS XR CHEST 2 VWS CLINICAL INFORMATION: Shortness of breath. Currently being treated for pneumonia COMPARISON: Chest radiograph dated 08/23/2023. VIEWS: 2. FINDINGS: Cardiac and mediastinal shadows are normal. Severe emphysema. Parenchymal scarring in the left upper lobe similar to prior exam. No new infiltrates. No effusions. No pneumothorax. No free air below the diaphragm. IMPRESSION: No radiographic evidence for acute cardiopulmonary disease. Severe emphysema. Parenchymal scarring in the left upper lobe similar to prior exam. Finalized by Rhiannon Crawford MD on 09/22/2023 4:32 PM Normal [facility] AFB CULTURE(CONCENTRATED)on 08-23-2023 Mycobacterium sp identified Org specific cx Nom (Unsp spec) AFB SMEAR NO ACID FAST BACILLI (CONCENTRATED SMEAR) CULTURE RESULTS NO AFB ISOLATED IN 6 WEEKS. CULTURE OVERGROWN WITH BACTERIA. UNABLE TO PROCESS FURTHER Normal [facility] Comment on above: Performed By: #### 5 43-9 #### [facility] ([id number]) [address], [address] [place] [address] FUNGAL CULTUREon 08-23-2023 Fungus identified Cx Nom (Unsp spec) FUNGAL SMEAR NO FUNGAL ELEMENTS SEEN ON DIRECT SMEAR CULTURE RESULTS NO FUNGUS ISOLATED AFTER [address] [facility] Comment on above: Performed By: #### 5 80-1 #### [facility] ([id number]) [address], [address] [place] [address] LOWER RESPIRATORY CULTUREon 08-23-2023 Bacteria identified Respiratory culture Nom (Sput) GRAM STAIN >25 WHITE BLOOD CELLS/LPF 0 to 1 SQUAMOUS EPITHELIAL CELLS/LPF 0 CILIATED EPITHELIAL CELLS/LPF FEW GRAM POSITIVE COCCI FEW GRAM POSITIVE RODS RARE GRAM NEGATIVE RODS CULTURE RESULTS MANY ENCAPSULATED PSEUDOMONAS AERUGINOSA ALONG WITH MANY NORMAL ORAL DEBORA Organism: PSEUDOMONAS AERUGINOSA Antibiotic Interpretation TERESA Status AZTREONAM S F CEFEPIME S F CIPROFLOXACIN S F LEVOFLOXACIN S F MEROPENEM S F PIPERACILLIN S F TOBRAMYCIN S F Susceptible [facility] Comment on above: Performed By: #### 6 24-7 #### [facility] ([id number]) [address], [address] [place] [address] XR CHEST 2 VWSon 08-23-2023 XR CHEST 2 VWS XR CHEST 2 VWS HISTORY: A 73-year-old female with the history of the dyspnea and coughing. COPD and bronchiectasis. TECHNIQUE: Chest: PA and lateral views, 2 views COMPARISON: Comparison is made with the chest radiographs of 02/18/2023. FINDINGS: Both lungs are hyperinflated with evidence of emphysema and COPD. Pleural parenchymal abnormality seen in the left upper chest consistent with pleural parenchymal scarring. There is no evidence of pneumonic consolidation or pneumothorax. No pleural effusions are seen. Heart is in midline. There are aortic calcifications. Hemidiaphragms are lower in position. IMPRESSION: * Severe emphysema and COPD. Pleural parenchymal scarring in the left upper lung. * No evidence of pneumonic infiltrate, acute pulmonary pathology or significant interval change. Finalized by Kg Lopez MD on 08/23/2023 12:[address] [facility] CNPNon 07-21-2023 CNPN Telephone (ERNIE MACIAS MAI) MARCELA BREWER ([id number]) 1950 F Date Time Provider Department 07/21/23 FERNANDA GASTELUM CARD [facility] During your visit today, we recorded the following information about you: Fernanda Gastelum RN 07/21/2023 8:44 AM Signed [employer] re-enrollment form completed for [facility]. Faxed to . Fernanda Gastelum RN July 21, 2023 8:44 AM Marleen Moran 07/27/2023 10:18 AM Signed Allergies As of Date: 07/21/2023 Noted Allergy Reaction PANTOPRAZOLE 04/08/2021 14 - Other: See Comments CARBINOXAMINE-PSEUDOEP HEDRINE 09/02/2016 14 - Other: See Comments CEPHALEXIN 07/31/2012 4 - Hives Comments: Rash. Trouble breathing. Can tolerate 250mg's but not 500mg's Spoke with RN confirmed with pt: Went to ER; pt told not to take keflex again METAXALONE 07/31/2012 14 - Other: See Comments METOCLOPRAMIDE 07/31/2012 5 - Intolerance MONTELUKAST 02/25/2021 14 - Other: See Comments SERTRALINE 07/31/2012 7 - Swelling CIPROFLOXACIN 01/27/2018 2 - Rash ERYTHROMYCIN 07/31/2012 8 - GI Upset LEVOFLOXACIN 07/31/2012 2 - Rash 7 - Swelling Comments: Tongue swelling Date Reviewed: 03/29/2023 Reviewed by: Leonor Bryan MA - Fully Assessed Reason for Visit: Forms [913] Cmt: [facility], [facility] Prescriptions as of 07/27/2023 - empagliflozin (JARDIANCE) 10 mg tablet Take 1 tablet by mouth once daily. - torsemide (DEMADEX) 10 mg tablet Take 1 tablet by mouth once daily as needed. - metoprolol succinate ER (TOPROL XL) 50 mg 24 hr tablet Take 1 tablet by mouth twice daily. - sacubitril-valsartan (ENTRESTO) 49-51 mg tablet Take 1 tablet by mouth twice daily. - acetaminophen (TYLENOL) 325 mg tablet Take 650 mg by mouth every 4 hours as needed. - albuterol HFA (PROVENTIL HFA, VENTOLIN HFA) 90 mcg/actuation inhaler once daily as needed. - atorvastatin (LIPITOR) 10 mg tablet Take 10 mg by mouth once daily. - calcium carbonate-vitamin D3 1,000 mg-20 mcg (800 unit) tab Take 1 tablet by mouth once daily. - esomeprazole (NEXIUM) 40 mg capsule Take 40 mg by mouth twice daily. - lamoTRIgine (LAMICTAL) 25 mg tablet Take 25 mg by mouth daily at bedtime. - levalbuterol (XOPENEX) 1.25 mg/3 mL nebulizer solution four times daily. - ipratropium (ATROVENT) 0.02 % nebulizer solution Use 0.5 mg via nebulizer four times daily. - LORazepam (ATIVAN) 1 mg tablet Take 1 mg by mouth four times daily. - nitroglycerin (NITRO-BID) 2 % ointment as needed. Raynaud's - predniSONE (DELTASONE) 10 mg tablet Take 10 mg by mouth once daily. - roflumilast (DALIRESP) 500 mcg tab Take 500 mcg by mouth once daily. - Vitamin E, dl, acetate, (VITAMIN E) 400 unit capsule Take 400 Units by mouth once daily. Facility-Administered Medications as of 07/27/2023 - perflutren lipid microspheres 1.3 mL in NaCl (PF) 0.9% 10 mL injection (DEFINITY) - sodium chloride 0.9 % (flush) 10 mL (BD POSIFLUSH) Problem List As Of Date 07/21/2023 Noted Resolved Protein-calorie malnutrition, unspecified sever*12/30/2022 Encounter Status:Closed by FERNANDA GASTELUM on 07/21/23 [facility] [facility] MARCELA BREWER ([id number]) 1950 F Date Time Provider Department 07/12/23 ALEX RIGGINS [facility] During your visit today, we recorded the following information about you: Marleen Moran 07/12/2023 9:49 AM Signed Samia Rodrigues RN 07/18/2023 4:26 PM Signed Completed and faxed patient and provider portion of [facility] application. Samia Rodrigues RN July 18, 2023 4:26 PM Marleen Moran 08/02/2023 2:38 PM Signed Rj Melendez 11/08/2023 4:24 PM Signed Patients approval letter from 11/04/2023 scanned onto onbase Allergies As of Date: 07/12/2023 Noted Allergy Reaction PANTOPRAZOLE 04/08/2021 14 - Other: See Comments CARBINOXAMINE-PSEUDOEP HEDRINE 09/02/2016 14 - Other: See Comments CEPHALEXIN 07/31/2012 4 - Hives Comments: Rash. Trouble breathing. Can tolerate 250mg's but not 500mg's Spoke with RN confirmed with pt: Went to ER; pt told not to take keflex again METAXALONE 07/31/2012 14 - Other: See Comments METOCLOPRAMIDE 07/31/2012 5 - Intolerance MONTELUKAST 02/25/2021 14 - Other: See Comments SERTRALINE 07/31/2012 7 - Swelling CIPROFLOXACIN 01/27/2018 2 - Rash ERYTHROMYCIN 07/31/2012 8 - GI Upset LEVOFLOXACIN 07/31/2012 2 - Rash 7 - Swelling Comments: Tongue swelling Date Reviewed: 03/29/2023 Reviewed by: Leonor Bryan MA - Fully Assessed Reason for Visit: BI Patient assistance [Other] Prescriptions as of 11/08/2023 - sodium chloride (NEBUSAL) 3 % nebulizer solution INHALE CONTENTS OF 1 VIAL VIA NEBULIZER EVERY DAY - gvtseorqba-iwlxoczm-du rmoterol (BREZTRI AEROSPHERE) 160-9-4.8 mcg/actuation HFA aerosol inhaler Inhale 2 Puffs as instructed. - torsemide (DEMADEX) 10 mg tablet Take 1 tablet by mouth once daily as needed. - empagliflozin (JARDIANCE) 10 mg tablet Take 1 tablet by mouth once daily. - metoprolol succinate ER (TOPROL XL) 50 mg 24 hr tablet Take 1 tablet by mouth twice daily. - sacubitril-valsartan (ENTRESTO) 49-51 mg tablet Take 1 tablet by mouth twice daily. - acetaminophen (TYLENOL) 325 mg tablet Take 650 mg by mouth every 4 hours as needed. - albuterol HFA (PROVENTIL HFA, VENTOLIN HFA) 90 mcg/actuation inhaler once daily as needed. - atorvastatin (LIPITOR) 10 mg tablet Take 10 mg by mouth once daily. - calcium carbonate-vitamin D3 1,000 mg-20 mcg (800 unit) tab Take 1 tablet by mouth once daily. - esomeprazole (NEXIUM) 40 mg capsule Take 40 mg by mouth twice daily. - lamoTRIgine (LAMICTAL) 25 mg tablet Take 25 mg by mouth daily at bedtime. - levalbuterol (XOPENEX) 1.25 mg/3 mL nebulizer solution four times daily. - ipratropium (ATROVENT) 0.02 % nebulizer solution Use 0.5 mg via nebulizer four times daily. - LORazepam (ATIVAN) 1 mg tablet Take 1 mg by mouth four times daily. - nitroglycerin (NITRO-BID) 2 % ointment as needed. Raynaud's - predniSONE (DELTASONE) 10 mg tablet Take 10 mg by mouth once daily. - roflumilast (DALIRESP) 500 mcg tab Take 500 mcg by mouth once daily. - Vitamin E, dl, acetate, (VITAMIN E) 400 unit capsule Take 400 Units by mouth once daily. Facility-Administered Medications as of 11/08/2023 - perflutren lipid microspheres 1.3 mL in NaCl (PF) 0.9% 10 mL injection (DEFINITY) - sodium chloride 0.9 % (flush) 10 mL (BD POSIFLUSH) Problem List As Of Date 07/12/2023 Noted Resolved Protein-calorie malnutrition, unspecified sever*12/30/2022 Encounter Status:Closed by SAMIA RODRIGUES on 07/18/23 [facility] 05-26-2023 [facility] Telephone (ERNIE MACIAS [facility]OMAS) MARCELA BREWER ([id number]) 1950 F Date Time Provider Department 05/26/23 [facility] During your visit today, we recorded the following information about you: Marleen Moran 05/26/2023 3:07 PM Signed Outside labs collected on 05/24/23 scanned into [employer] for review. Allergies As of Date: 05/26/2023 Noted Allergy Reaction PANTOPRAZOLE 04/08/2021 14 - Other: See Comments CARBINOXAMINE-PSEUDOEP HEDRINE 09/02/2016 14 - Other: See Comments CEPHALEXIN 07/31/2012 4 - Hives Comments: Rash. Trouble breathing. Can tolerate 250mg's but not 500mg's Spoke with RN confirmed with pt: Went to ER; pt told not to take keflex again METAXALONE 07/31/2012 14 - Other: See Comments METOCLOPRAMIDE 07/31/2012 5 - Intolerance MONTELUKAST 02/25/2021 14 - Other: See Comments SERTRALINE 07/31/2012 7 - Swelling CIPROFLOXACIN 01/27/2018 2 - Rash ERYTHROMYCIN 07/31/2012 8 - GI Upset LEVOFLOXACIN 07/31/2012 2 - Rash 7 - Swelling Comments: Tongue swelling Date Reviewed: 03/29/2023 Reviewed by: Leonor Bryan MA - Fully Assessed Reason for Visit: Outside Labs Results [437] Prescriptions as of 06/07/2023 - torsemide (DEMADEX) 10 mg tablet Take 1 tablet by mouth once daily as needed. - metoprolol succinate ER (TOPROL XL) 50 mg 24 hr tablet Take 1 tablet by mouth twice daily. - sacubitril-valsartan (ENTRESTO) 49-51 mg tablet Take 1 tablet by mouth twice daily. - acetaminophen (TYLENOL) 325 mg tablet Take 650 mg by mouth every 4 hours as needed. - albuterol HFA (PROVENTIL HFA, VENTOLIN HFA) 90 mcg/actuation inhaler once daily as needed. - atorvastatin (LIPITOR) 10 mg tablet Take 10 mg by mouth once daily. - calcium carbonate-vitamin D3 1,000 mg-20 mcg (800 unit) tab Take 1 tablet by mouth once daily. - empagliflozin (JARDIANCE) 10 mg tablet Take 10 mg by mouth once daily. - esomeprazole (NEXIUM) 40 mg capsule Take 40 mg by mouth twice daily. - lamoTRIgine (LAMICTAL) 25 mg tablet Take 25 mg by mouth daily at bedtime. - levalbuterol (XOPENEX) 1.25 mg/3 mL nebulizer solution four times daily. - ipratropium (ATROVENT) 0.02 % nebulizer solution Use 0.5 mg via nebulizer four times daily. - LORazepam (ATIVAN) 1 mg tablet Take 1 mg by mouth four times daily. - nitroglycerin (NITRO-BID) 2 % ointment as needed. Raynaud's - predniSONE (DELTASONE) 10 mg tablet Take 10 mg by mouth once daily. - roflumilast (DALIRESP) 500 mcg tab Take 500 mcg by mouth once daily. - Vitamin E, dl, acetate, (VITAMIN E) 400 unit capsule Take 400 Units by mouth once daily. Facility-Administered Medications as of 06/07/2023 - perflutren lipid microspheres 1.3 mL in NaCl (PF) 0.9% 10 mL injection (DEFINITY) - sodium chloride 0.9 % (flush) 10 mL (BD POSIFLUSH) Problem List As Of Date 05/26/2023 Noted Resolved Protein-calorie malnutrition, unspecified sever*12/30/2022 Encounter Status:Closed by LORNE MERAZ on 06/07/23 [facility] CNOVon 03-29-2023 CNOV Office Visit (ERNIE GUEVARA MAI) MARCELA BREWER ([id number]) 1950 F Date Time Provider Department 03/29/23 11:15 AM ALEX RIGGINS MAI During your visit today, we recorded the following information about you: Pulse Respiration Blood pressure Weight 68/minute 15/minute 127/68 49 kg Height 1.575 m Alex Riggins MD 03/29/2023 12:11 PM Signed [facility] SECTION OF HEART FAILURE and CARDIAC TRANSPLANT MEDICINE OUTPATIENT VISIT DATE March 29, 2023 OUTPATIENT VISIT TYPE Established Patient PRIMARY CARE PHYSICIAN: Luiz Tadeo MD ([facility]) [address] [place] [address] CHIEF COMPLAINT: Routine follow-up NURSING INTAKE (Patient?s concerns and/or recent hospitalizations/ER visits): HF Nursing Assessment: Interim Hospitalizations and/or ER visits:no Chest Pain: no Skipping or irregular heartbeats: yes Shortness of breath at rest: no Shortness of breath with activity: yes Cough: no Waking up in the middle of the night gasping for air: no pt sleep with oxygen Lightheadedness or dizziness: no Feeling like you are going to pass out: no Actually passing out: no Poor energy level: no Unintentional weight gain: no Unintentional weight loss: no Swelling in your legs,feet, abdomen: feet Filling up quickly when you eat: yes HISTORY OF PRESENT ILLNESS: 73 year old woman with severe COPD, 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 I advised increasing to high dose sacubitril/valsartan but this was precluded by recrudescent hyperkalemia and she has remained on a backbone of moderate dose ARNI, empagliflozin 10mg, metoprolol succinate 50mg BID, and spironolactone 25mg daily. Overall she has done very well to this with interval recovery in LVEF by both CMR and TTE. She has done overall well since our last visit - remains off of spironolactone due to intermittent hyponatremia but tolerating metoprolol and Entresto mid-dose. Still smoking. NT pro BNP up slightly on labs earlier this month in the context of prior fluid retention episode in setting of a course of prednisone prescribed by pulmonology for antecedent COPD exacerbation. 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) Emphysema lung (HCC) GERD (gastroesophageal reflux disease) Hypertension NICM (nonischemic cardiomyopathy) (HCC) PAST SURGICAL HISTORY Procedure Laterality Date ABLATION 2013 APPENDECTOMY BX OF BREAST; INCISIONAL Bilateral HYSTERECTOMY HX REMOVAL GALLBLADDER SURGICAL throat nodes removed SOCIAL HISTORY Social History Tobacco Use Smoking status: Every Day Types: Cigarettes Smokeless tobacco: Never Tobacco comments: 10-12 cigaretts daily Substance Use Topics Alcohol use: Not Currently Drug use: Never FAMILY HISTORY Problem Relation Age of Onset Arthritis Mother Heart Attack Father killed 2/3 of heart Heart Father Heart Attack Brother CABG x 4 ALLERGIES: ALLERGIES Allergen Reactions Pantoprazole Other: See Comments Carbinoxamine-Pseud* Other: See Comments Cephalexin Hives Rash. Trouble breathing. Can tolerate 250mg's but not 500mg's Spoke with RN confirmed with pt: Went to ER; pt told not to take keflex again Metaxalone Other: See Comments Metoclopramide Intolerance Montelukast Other: See Comments Sertraline Swelling Ciprofloxacin Rash Erythromycin GI Upset Levofloxacin Rash, Swelling Tongue swelling CURRENT MEDICATIONS: sacubitril-valsartan (ENTRESTO) 49-51 mg tabletTake 1 tablet by mouth twice daily.Disp: 180 tabletRfl: 3 metoprolol succinate ER (TOPROL XL) 50 mg 24 hr tabletTake 1 tablet by mouth twice daily.Disp: 180 tabletRfl: 3 acetaminophen (TYLENOL) 325 mg tabletTake 650 mg by mouth every 4 hours as needed.Disp: Rfl: atorvastatin (LIPITOR) 10 mg tabletTake 10 mg by mouth once daily.Disp: Rfl: calcium carbonate-vitamin D3 1,000 mg-20 mcg (800 unit) tabTake 1 tablet by mouth once daily.Disp: Rfl: empagliflozin (JARDIANCE) 10 mg tabletTake 10 mg by mouth once daily.Disp: Rfl: esomeprazole (NEXIUM) 40 mg capsuleTake 40 mg by mouth twice daily.Disp: Rfl: lamoTRIgine (LAMICTAL) 25 mg tabletTake 25 mg by mouth daily at bedtime.Disp: Rfl: LORazepam (ATIVAN) (more content not included)... Normal [facility] Basic metabolic 2000 panelon 03-24-2023 Anion gap [Moles/Vol] 12 mmol/L Normal -18 [facility] Comment on above: Order Comment: Speci men Type: BLOOD SPECIMEN Ordering Facility: [facility] Address: [address] [place] [id number] Performed By: #### 3 3762-6, 31630-7 #### [facility] CLIA [id number] [place] [address] [place] Calcium [Mass/Vol] 9.8 mg/dL Normal 8.5-10.2 [facility] Comment on above: Order Comment: Speci men Type: BLOOD SPECIMEN Ordering Facility: [facility] Address: [address] [place] [address] Performed By: #### 3 3762-6, 53681-2 #### [facility] [place] [id number] [place] [address] [place] Chloride [Moles/Vol] 98 mmol/L Normal 97-105 [facility] Comment on above: Order Comment: Speci men Type: BLOOD SPECIMEN Ordering Facility: [facility] Address: [address] [place] [address] Performed By: #### 3 3762-6, 16461-3 #### [facility] [id number] [address] [place] [address] [place] CO2 [Moles/Vol] 30 mmol/L Normal 22-30 [facility] Comment on above: Order Comment: Speci men Type: BLOOD SPECIMEN Ordering Facility: [facility] Address: [address] [place] [address] Performed By: #### 3 3762-6, 84780-5 #### [facility] [place] [id number] [address] [place] [address] [place] Creatinine [Mass/Vol] 0.49 mg/dL Low 0.58-0.96 [facility] Comment on above: Order Comment: Speci men Type: BLOOD SPECIMEN Ordering Facility: [facility] Address: [address] [place] [address] Performed By: #### 3 3762-6, 81534-3 #### [facility] [place] [id number] [address] [place] [address] [place] ESTIMATED GLOMERULAR FILTRATION RATE 101 mL/min/1.73m??? Normal >=60 [facility] Comment on above: Order Comment: Speci men Type: BLOOD SPECIMEN Ordering Facility: [facility] Address: [address] [place] [address] Result Comment: Iveth mated Glomerular Filtration Rate (eGFR) is calculated using the 2020 CKD-EPI creatinine equation. This equation utilizes serum creatinine, sex, and age as parameters. The creatinine assay has traceable calibration to isotope dilution-mass spectrometry. Refer to KDIGO guidelines for clinical interpretation. In patients with unstable renal function, e.g. those with acute kidney injury, the eGFR may not accurately reflect actual GFR. Performed By: #### 3 3762-6, 01298-2 #### [facility] CLIA [id number] [address] [place] [address] [place] Glucose [Mass/Vol] 129 mg/dL High 74-99 [facility] Comment on above: Order Comment: Rosaura wolfe Type: BLOOD SPECIMEN Ordering Facility: [facility] Address: [address] [place] [address] Result Comment: The [place] [employer] (ADA) provides guidance for cutoff values for fasting glucose and random glucose. The ADA defines fasting as no caloric intake for at least 8 hours. Fasting plasma glucose results between 100 to 125 mg/dL indicate increased risk for diabetes (prediabetes). Fasting plasma glucose results greater than or equal to 126 mg/dL meet the criteria for diagnosis of diabetes. In the absence of unequivocal hyperglycemia, results should be confirmed by repeat testing. In a patient with classic symptoms of hyperglycemia or hyperglycemic crisis, random plasma glucose results greater than or equal to 200 mg/dL meet the criteria for diagnosis of diabetes. Reference: Standards of Medical Care in Diabetes 2016, [place] [employer]. Diabetes Care. 2016.39(Suppl 1). Performed By: #### 3 3762-6, 92564-4 #### [facility] CLIA [id number] [facility] [place] [address] [place] Potassium [Moles/Vol] 4.5 mmol/L Normal 3.7-5.1 [facility] Comment on above: Order Comment: Rosaura wolfe Type: BLOOD SPECIMEN Ordering Facility: [facility] Address: [address] [id number] Performed By: #### 3 3762-6, 10022-7 #### [facility] CLIA [id number] [place] Sodium [Moles/Vol] 140 mmol/L Normal 136-144 [facility] Comment on above: Order Comment: Speci men Type: BLOOD SPECIMEN Ordering Facility: [facility] Address: [address] [place] [address] Performed By: #### 3 3762-6, 63408-7 #### [facility] [place] [id number] [place] Urea nitrogen [Mass/Vol] 6 mg/dL Low - [facility] Comment on above: Order Comment: Speci men Type: BLOOD SPECIMEN Ordering Facility: [facility] Address: [address] [place] [address] Performed By: #### 3 3762-6, 00148-4 #### [facility] [place] [id number] [address] [address] [id number] [facility] 03-24-2023 Echocardiography Echocardiography Report: Transthoracic Echo [facility] Date of service: 03/24/2023 2:27:06 PM Ordering physician: ALEX RIGGINS Indication: Cardiomyopathy Technologist: Louie Pruett Interpreting physician: Gabriel Torres MD PATIENT: Name: MRS. MARCELA BREWER : 1950 Age: 73 years Gender: F Primary rhythm: sinus. Height: 157.50 cm BSA: 1.44 m Weight: 47.17 kg BMI: 19.0 kg/m Heart rate 100 bpm Blood pressure 68/126 mmHg Color Doppler was utilized to interrogate the cardiac valves assessed and spectral Doppler was utilized to determine the flow velocities and pressure gradients reported in this exam. MEASUREMENTS: Value Indexed Normal Max aortic dimension 3.1 cm Ao < 3.8 Left atrial volume 31 ml (biplane A-L) 22 ml/m Oriana <= 34 LV ID (diastole) 4.1 cm (2D) 2.85 cm/m LV ID (systole) 2.8 cm (2D) 1.96 cm/m IVS, leaflet tips 0.6 cm (2D) Posterior wall thickness 0.5 cm (2D) Left ventricular mass 63 g (2D) 44 g/m LV stroke volume 54 ml (2D biplane) LV end diastolic volume 88 ml (2D biplane) 61.5 ml/m 29<=EDVi<62 LV end systolic volume 34 ml (2D biplane) 23.8 ml/m Ejection Fraction 61 % (2D biplane) EF > 54 FINDINGS: LEFT VENTRICLE The left ventricle is normal in size. There is no left ventricular hypertrophy. Left ventricular systolic function is normal. Indeterminate left ventricular diastolic dysfunction due to an arrhythmia and E/A fusion. Wall Motion: All scored segments are normal. RIGHT VENTRICLE The right ventricle is normal in size. Right ventricular systolic function is normal. Tricuspid annular displacement is 2.8 cm. Estimated right ventricular systolic pressure is 33 mmHg consistent with normal pulmonary artery pressures. Estimated right atrial pressure is 3 mmHg based on IVC assessment. LEFT ATRIUM The left atrial cavity is normal in size. RIGHT ATRIUM The right atrial cavity is normal in size. Inferior Vena Cava: The inferior vena cava appears normal measuring 1.1 cm. The vessel decreases greater than 50 percent with inspiration. MITRAL VALVE The mitral valve leaflets are structurally normal. There is mild (1+) mitral valve regurgitation. The pressure half time is 50 msec. The mitral flow deceleration time is 174 msec. TRICUSPID VALVE The tricuspid valve leaflets are structurally normal. There is trace tricuspid valve regurgitation. AORTIC VALVE The aortic valve cusps are structurally normal. There is no aortic valve stenosis. There is no aortic valve regurgitation. Tricuspid aortic valve. There is mild thickening. The LVOT diameter is 2.0 cm. PULMONIC VALVE The pulmonic valve was not seen or not interrogated. There is trace pulmonic valve regurgitation. AORTA The visualized aorta is normal in size. Measurements - Sinus: 3.1 cm. Mid ascending aorta 2.9 cm. PERICARDIUM There is no pericardial effusion. CONCLUSIONS: - Exam indication: Cardiomyopathy - Lot of ectopy. - The left ventricle is normal in size. There is no left ventricular hypertrophy. Left ventricular systolic function is normal. EF = 61 5% (2D biplane) - The right ventricle is normal in size. Right ventricular systolic function is normal. - Normal LA/RA size. - Mild (1+) mitral regurgitation. - Exam was compared with the prior CC echocardiographic exam performed on 01/26/22 report comparison only. * * * Final * * * CC [employer] [facility] : [id number] [id number] Normal [facility] LVEF ECHOon 03-24-2023 LV Ejection Fraction 61 % [facility] NT-proBNP SerPl-mCncon 03-24 Natriuretic peptide.B prohormone N-Terminal [Mass/Vol] 522 pg/mL High <125 [facility] Comment on above: Order Comment: Speci men Type: BLOOD SPECIMEN Ordering Facility: [facility] Address: [address] [place], [place] [id number] Performed By: #### 3 3762-6, 07840-2 #### [facility] CLIA [id number] [place] [address] [place] PVR LEG ZAHIRA VAS LABon 2022 PVR LEG [facility]AHIRA [facility] LAB Non-Invasive Vascula r Laboratory [facility] Lower Extremity Arterial Physiology Study Bilateral/Complete Date of service/time: 03/24/2023 11:16:42 AM Name: MRS. MARCELA BREWER Date of : 1950 Age: 73 years Gender: F Clinical Indication Pain in leg. TECHNIQUE -------- An arterial physiological examination was performed, including measurement of blood pressures using continuous wave Doppler and recording of plethysmographic with or without Doppler waveforms at the below-mentioned limb segments. FINDINGS -------- RIGHT SIDE AT REST Right Pressures Brachial: 128 mmHg High thigh: 162 mmHg Low thigh: 153 mmHg Calf: 147 mmHg Ankle dorsalis pedis: 143 mmHg SASHA: 1.12 Ankle posterior tibial: 139 mmHg SASHA: 1.09 Right PVR Waveforms High thigh: Normal. Low thigh: Normal. Calf: Normal. Ankle: Normal. Transmetatarsal: Normal. Digit: Severely dampened. LEFT SIDE AT REST Left Pressures Brachial: 125 mmHg High thigh: 163 mmHg Low thigh: 148 mmHg Calf: 138 mmHg Ankle dorsalis pedis: 137 mmHg SASHA: 1.07 Ankle posterior tibial: 133 mmHg SASHA: 1.04 Left PVR Waveforms High thigh: Normal. Low thigh: Normal. Calf: Normal. Ankle: Normal. Transmetatarsal: Normal. Digit: Normal. IMPRESSION RIGHT SIDE Resting right ankle brachial index: 1.12 Normal ankle brachial index at rest in the right leg. Right ankle: Normal at rest. Right small vessel disease versus vasoconstriction. LEFT SIDE Resting left ankle brachial index: 1.07 Normal ankle brachial index at rest in the left leg. Left ankle: Normal at rest. Technologist: Marlon WHITE Ordering physician: ALEX RIGGINS Interpreting physician: Moise Arias MD, RPVI Final CC [employer] [facility] : [id number] See Link below for Image Normal [facility] CBC panel Auto (Bld)on 12-30 Erythrocyte distribution width (RBC) [Ratio] 13.7 % 11.5 - 15.0 % [facility] Hematocrit (Bld) [Volume fraction] 47.8 % High 36.0 - 46.0 % [facility] Hemoglobin (Bld) [Mass/Vol] 15.2 g/dL 11.5 - 15.5 g/dL [facility] MCH (RBC) [Entitic mass] 30.5 pg 26.0 - 34.0 pg [facility] MCHC (RBC) [Mass/Vol] 31.8 g/dL 30.5 - 36.0 g/dL [facility] MCV (RBC) [Entitic vol] 95.8 fL 80.0 - 100.0 fL [facility] Nucleated RBC (Bld) [#/Vol] <0.01 k/uL [facility] Platelet mean volume (Bld) [Entitic vol] 9.2 fL 9.0 - 12.7 fL [facility] Platelets (Bld) [#/Vol] 448 10*3/uL High 150 - 400 k/uL [facility] RBC (Bld) [#/Vol] 4.99 10*6/uL 3.90 - 5.2 0 m/uL [facility] WBC (Bld) [#/Vol] 12.57 10*3/uL High 3.70 - 11 .00 k/uL [facility] OSMOLALITY URINEon Osmolality (U) [Osmolality] 286 mosm/kg 50 - 1,200 mOsm/kg [facility] PROF CHEM 8 (BAS METB)on Anion gap [Moles/Vol] 9.2 mmol/L Normal [facility] Comment on above: Performed By: #### B MP #### [facility] [address] [address] [address] Amrik Zazueta Calcium [Mass/Vol] 9.2 mg/dL Normal 8.5-10.1 [facility] Comment on above: Performed By: #### B MP #### [facility] [address] [address] [address] Amrik Zazueta Chloride [Moles/Vol] 96 mmol/L Critically low 98-107 [facility] Comment on above: Performed By: #### B MP #### [facility] [address] [address] [address] Amrik Zazueta CO2 [Moles/Vol] 33.2 mmol/L Critically high 21.0-32.0 [facility] Comment on above: Performed By: #### B MP #### [facility] [address] [address] [address] Amrik Zazueta Creatinine [Mass/Vol] 0.82 mg/dL Normal 0.55-1.02 [facility] Comment on above: Performed By: #### B MP #### [facility] [address] [address] [address] Amrik Zazueta EGFR-AF BRUNEIAN >60 Normal >=60 [facility] Comment on above: Performed By: #### B MP #### [facility] [address] [address] [address] Amrik Zazueta EGFR-NON AF BRUNEIAN >60 Normal >=60 [facility] Comment on above: Performed By: #### B MP #### [facility] [address] [place], [place] [address] Dr. Amrik Zazueta Glucose [Mass/Vol] 121 mg/dL Critically high 74-106 T [facility] Comment on above: Performed By: #### B MP #### [facility] [address] [place], [place] [address] Dr. Amrik Zazueta Potassium [Moles/Vol] 4.4 mmol/L Normal 3.5-5.1 [facility] Comment on above: Performed By: #### B MP #### [facility] [address] [address] [address] Amrik Zazueta Sodium [Moles/Vol] 134 mmol/L Critically low 136-145 [facility] Comment on above: Performed By: #### B MP #### [facility] [address] [address] [address] Amrik Zazueta Urea nitrogen [Mass/Vol] 7.0 mg/dL Normal 7.0-18.0 [facility] Comment on above: Performed By: #### B MP #### [facility] [address] [address] [address] Amrik Zazueta Urea nitrogen/Creatinine [Mass ratio] 8.5 mg/mg Normal [facility] Comment on above: Performed By: #### B MP #### [facility] [address] [address] [address] Amrik Zazueta XR SHOULDER RT 2V or >on XR SHOULDER RT 2V or > EXAM: XR HUMERUS RT MIN 2 V, XR SHOULDER RT 2V or > HISTORY: Injury of shoulder and upper arm. Lifting injury. Swelling. COMPARISON: None. TECHNIQUE: Three views of the right shoulder, Two views of the right humerus. FINDINGS: RIGHT SHOULDER: Bones are osteopenic. Glenohumeral alignment appears preserved. There is mild to moderate marginal spur at the acromioclavicular joint and mild glenohumeral joint marginal spur. Imaged right ribs appear preserved. RIGHT HUMERUS: The humerus appears intact. Alignment at the elbow joint appeared preserved, as seen. No radiopaque foreign bodies identified. IMPRESSION: 1. No acute fracture of the right shoulder or right humerus identified. 2. Mild to moderate acromioclavicular and mild glenohumeral joint osteoarthritis. Electronically authenticated by: SAMANTHA DINERO Date: 2022-09-01 13:01 Normal [facility] NM SPECT/CT CARDIAC AMYLOIDo n 02-23-2022 [facility] No Panel Informationon 01-26 [facility] LACHELLE [place] DIGITAL SCREEN SELF REFERRAL W OR WO CAD BILATERALon 02-16-2021 [facility] [place] DIGITAL SCREEN SELF REFERRAL W OR WO CAD BILATERAL EXAMINATION: SCREENING DIGITAL BILATERAL MAMMOGRAM WITH TOMOSYNTHESIS 02/14/2021 TECHNIQUE: Screening mammography of the bilateral breasts was performed with tomosynthesis. 2D standard and 3D tomosynthesis combination imaging performed through both breasts in the MLO and CC projection. Computer aided detection was utilized in the interpretation of this exam. Screening mammography of the bilateral breasts was performed with tomosynthesis. 2D standard and 3D tomosynthesis combination imaging performed through both breasts in the MLO and CC projection. Computer aided detection was utilized in the interpretation of this exam. Positioning apparently was somewhat technically challenging. COMPARISON: Bilateral mammographic imaging: April 10, 2019, February 06, 2018, September 27, 2016, July 14, 2015, July 08, 2014, June 19, 2013. HISTORY: Screening. Screening. The patient has had previous bilateral breast biopsies which apparently were benign. Based on the Tyrer-Cuzick (LAURE) model, this patient's lifetime risk for developing breast cancer is 26.3%. The [place] [employer] considers women with a 20% or greater lifetime risk for developing breast cancer as high risk . Women at risk for breast cancer may benefit from additional screening, which may include an annual screening mammogram alternating every six (6) months with a breast MRI, as appropriate. Recommend that this patient consult with her preferred provider about: A genetic counseling consultation to discuss formal risk assessment, and a medical oncology consultation to discuss risk reduction strategies (if not already performed). Assistance, if requested, is available through the [facility] high risk breast program at [phone], or by placing an [facility] ambulatory referral to the high risk breast clinic . FINDINGS: The breasts are heterogeneously dense, which may obscure small masses. Within that limitation, there is no dominant mass or area of architectural distortion. Again apparent are numerous calcifications throughout each breast, some in the left upper outer quadrant having been previously biopsied. These appear essentially unchanged. There is global asymmetry. IMPRESSION: No mammographic evidence to suggest malignancy. In this patient with global asymmetry of the breast tissues and numerous calcifications, who also has a high Tyrer Cuzick score, bilateral breast MRI should be considered. BIRADS: BIRADS - CATEGORY 2 Benign Findings. Normal interval follow-up is recommended in 12 months. Bilateral breast MRI would be appropriate. OVERALL ASSESSMENT - BENIGN A letter of notification will be sent to the patient regarding the results. The [place] [employer] recommends annual mammograms for women 40 years and older. Interpreted by: Yuki Wall MD Signed by: Yuki Wall MD 02/16/21 Final result Normal [facility] ALMA DELIA DIGITAL SCREEN SELF REFERRAL W OR WO CAD BILATERALOrdered By: Pili Stearns on 02-16-2021 No mammographic evidence to suggest malignancy. In this patient with global asymmetry of the breast tissues and numerous calcifications, who also has a high Tyrer Cuzick score, bilateral breast MRI should be considered. BIRADS: BIRADS - CATEGORY 2 Benign Findings. Normal interval follow-up is recommended in 12 months. Bilateral breast MRI would be appropriate. OVERALL ASSESSMENT - BENIGN A letter of notification will be sent to the patient regarding the results. The [place] [employer] recommends annual mammograms for women 40 years and older. [facility] [employer] Phone: EXAMINATION: SCREENI NG DIGITAL BILATERAL MAMMOGRAM WITH TOMOSYNTHESIS 02/14/2021 TECHNIQUE: Screening mammography of the bilateral breasts was performed with tomosynthesis. 2D standard and 3D tomosynthesis combination imaging performed through both breasts in the MLO and CC projection. Computer aided detection was utilized in the interpretation of this exam. Screening mammography of the bilateral breasts was performed with tomosynthesis. 2D standard and 3D tomosynthesis combination imaging performed through both breasts in the MLO and CC projection. Computer aided detection was utilized in the interpretation of this exam. Positioning apparently was somewhat technically challenging. COMPARISON: Bilateral mammographic imaging: April 10, 2019, February 06, 2018, September 27, 2016, July 14, 2015, July 08, 2014, June 19, 2013. HISTORY: Screening. Screening. The patient has had previous bilateral breast biopsies which apparently were benign. Based on the Tyrer-Cuzick (LAURE) model, this patient's lifetime risk for developing breast cancer is 26.3%. The [place] [employer] considers women with a 20% or greater lifetime risk for developing breast cancer as high risk . Women at risk for breast cancer may benefit from additional screening, which may include an annual screening mammogram alternating every six (6) months with a breast MRI, as appropriate. Recommend that this patient consult with her preferred provider about: A genetic counseling consultation to discuss formal risk assessment, and a medical oncology consultation to discuss risk reduction strategies (if not already performed). Assistance, if requested, is available through the [employer] high risk breast program at [phone], or by placing an [facility] ambulatory referral to the high risk breast clinic . FINDINGS: The breasts are heterogeneously dense, which may obscure small masses. Within that limitation, there is no dominant mass or area of architectural distortion. Again apparent are numerous calcifications throughout each breast, some in the left upper outer quadrant having been previously biopsied. These appear essentially unchanged. There is global asymmetry. [employer] Work Phone: Hiren, pn Incoming Radiant Results From [employer] - 02/16/2021 10:11 AM EDT EXAMINATION: SCREENING DIGITAL BILATERAL MAMMOGRAM WITH TOMOSYNTHESIS 02/14/2021 TECHNIQUE: Screening mammography of the bilateral breasts was performed with tomosynthesis. 2D standard and 3D tomosynthesis combination imaging performed through both breasts in the MLO and CC projection. Computer aided detection was utilized in the interpretation of this exam. Screening mammography of the bilateral breasts was performed with tomosynthesis. 2D standard and 3D tomosynthesis combination imaging performed through both breasts in the MLO and CC projection. Computer aided detection was utilized in the interpretation of this exam. Positioning apparently was somewhat technically challenging. COMPARISON: Bilateral mammographic imaging: April 10, 2019, February 06, 2018, September 27, 2016, July 14, 2015, July 08, 2014, June 19, 2013. HISTORY: Screening. Screening. The patient has had previous bilateral breast biopsies which apparently were benign. Based on the Tyrer-Cuzick (LAURE) model, this patient's lifetime risk for developing breast cancer is 26.3%. The [place] [employer] considers women with a 20% or greater lifetime risk for developing breast cancer as high risk . Women at risk for breast cancer may benefit from additional screening, which may include an annual screening mammogram alternating every six (6) months with a breast MRI, as appropriate. Recommend that this patient consult with her preferred provider about: A genetic counseling consultation to discuss formal risk assessment, and a medical oncology consultation to discuss risk reduction strategies (if not already performed). Assistance, if requested, is available through the [facility] high risk breast program at [phone], or by placing an [facility] ambulatory referral to the high risk breast clinic . FINDINGS: The breasts are heterogeneously dense, which may obscure small masses. Within that limitation, there is no dominant mass or area of architectural distortion. Again apparent are numerous calcifications throughout each breast, some in the left upper outer quadrant having been previously biopsied. These appear essentially unchanged. There is global asymmetry. IMPRESSION: No mammographic evidence to suggest malignancy. In this patient with global asymmetry of the breast tissues and numerous calcifications, who also has a high Tyrer Cuzick score, bilateral breast MRI should be considered. BIRADS: BIRADS - CATEGORY 2 Benign Findings. Normal interval follow-up is recommended in 12 months. Bilateral breast MRI would be appropriate. OVERALL ASSESSMENT - BENIGN A letter of notification will be sent to the patient regarding the results. [employer] recommends annual mammograms for women 40 years and older. [employer] Work Phone: [employer] Phone: Progress Noteon 02-23-2018 HIM IP Note OR Improvement Spec Normal [facility] Progress Noteon 01-27-2018 HIM IP Note OR Improvement Spec Normal [facility] Progress Noteon 11-22-2017 HIM IP Note OR Improvement Spec Normal [facility] Progress Noteon 09-22-2017 HIM IP Note OR Improvement Spec Normal [facility] Vital Signs Date Time Vital Sign Value Performing Clinician Facility 01-12-2024 11:18-0400 Body height 154.9 cm Yuki Car MD Work Phone: [facility] 01-12-2024 11:18-0400 Body mass index (BMI) [Ratio] 19.33 kg/m2 Yuki Car MD Work Phone: [facility] 01-12-2024 11:18-0400 Body weight 46.4 kg Yuki Car MD Work Phone: [facility] 01-12-2024 11:18-0400 Diastolic blood pressure 69 mm[Hg] Yuki Car MD Work Phone: [facility] 01-12-2024 11:18-0400 Heart rate 97 /min Yuki Car MD Work Phone: [facility] 01-12-2024 11:18-0400 SaO2% (BldA) [Mass fraction] 100 % Yuki Car MD Work Phone: [facility] 01-12-2024 11:18-0400 Systolic blood pressure 145 mm[Hg] Yuki Car MD Work Phone: [facility] 11-10-2023 10:53-0500 Body height 154.9 cm Laura Mac DO Work Phone: [facility] 11-10-2023 10:53-0500 Body mass index (BMI) [Ratio] 19.88 kg/m2 Laura Mac DO Work Phone: [facility] 11-10-2023 10:53-0500 Body weight 47.72 kg Laura Mac DO Work Phone: [facility] 11-10-2023 10:53-0500 Diastolic blood pressure 74 mm[Hg] Laura Mac DO Work Phone: [facility] 11-10-2023 10:53-0500 Heart rate 97 /min Laura Mac DO Work Phone: [facility] 11-10-2023 10:53-0500 SaO2% (BldA) [Mass fraction] 95 % Laura Mac DO Work Phone: [facility] Comment on above: Arrived on 2.5Lnc of O2 11-10-2023 10:53-0500 Systolic blood pressure 160 mm[Hg] Laura Mac DO Work Phone: [facility] 11-07-2023 13:12-0500 Body weight 48.99 kg Yuki Car MD Work Phone: [facility] 11-07-2023 13:12-0500 Diastolic blood pressure 72 mm[Hg] Yuki Car MD Work Phone: [facility] 11-07-2023 13:12-0500 Heart rate 104 /min Yuki Car MD Work Phone: [facility] 11-07-2023 13:12-0500 SaO2% (BldA) [Mass fraction] 95 % Yuki Car MD Work Phone: [facility] 11-07-2023 13:12-0500 Systolic blood pressure 145 mm[Hg] Yuki Car MD Work Phone: [facility] 11-01-2023 15:25-0500 Body height 154.9 cm Alex Riggins MD Work Phone: [facility] 11-01-2023 15:25-0500 Body weight 48.99 kg Alex Riggins MD Work Phone: [facility] 11-01-2023 15:25-0500 Diastolic blood pressure 83 mm[Hg] Alex Riggins MD Work Phone: [facility] 11-01-2023 15:25-0500 Heart rate 115 /min Alex Riggins MD Work Phone: [facility] 11-01-2023 15:25-0500 SaO2% (BldA) [Mass fraction] 93 % Alex Riggins MD Work Phone: [facility] 11-01-2023 15:25-0500 Systolic blood pressure 147 mm[Hg] Alex Riggins MD Work Phone: [facility] 09-23-2023 10:42-0500 SaO2% (BldA) [Mass fraction] 96 % LUIZ [facility] Comment on above: Performed By: #### C BCA, [id number], CMP, [id number], [id number] #### [facility] ([id number]) [address], [address] [place] [address] 09-22-2023 20:23-0500 SaO2% (BldA) [Mass fraction] 97 % LUIZ [facility] Comment on above: Performed By: #### V BG #### [facility] ([id number]) [address] [place] [address] 12-30-2022 14:32-0400 Body height 157.5 cm Marti Matejka PA-C Work Phone: [facility] 12-30-2022 14:32-0400 Body weight 47.17 kg Marti Matejka PA-C Work Phone: [facility] 12-30-2022 14:32-0400 Diastolic blood pressure 68 mm[Hg] Marti Matejka PA-C Work Phone: [facility] 12-30-2022 14:32-0400 Heart rate 105 /min Marti Matejka PA-C Work Phone: [facility] 12-30-2022 14:32-0400 SaO2% (BldA) [Mass fraction] 94 % Marti Matejka PA-C Work Phone: [facility] 12-30-2022 14:32-0400 Systolic blood pressure 126 mm[Hg] Marti Matejka PA-C Work Phone: [facility] 10-19-2022 14:13-0500 Body height 156.2 cm Alex Riggins MD Work Phone: [facility] 10-19-2022 14:13-0500 Body weight 49.03 kg Alex Riggins MD Work Phone: [facility] 10-19-2022 14:13-0500 Diastolic blood pressure 62 mm[Hg] Alex Riggins MD Work Phone: [facility] 10-19-2022 14:13-0500 Heart rate 98 /min Alex Riggins MD Work Phone: [facility] 10-19-2022 14:13-0500 SaO2% (BldA) [Mass fraction] 98 % Alex Riggins MD Work Phone: [facility] 10-19-2022 14:13-0500 Systolic blood pressure 121 mm[Hg] Alex Riggins MD Work Phone: [facility] 05-04-2022 12:02-0400 Body height 154.9 cm Alex Riggins MD Work Phone: [facility] 05-04-2022 12:02-0400 Body weight 47.17 kg Alex Riggins MD Work Phone: [facility] 05-04-2022 12:02-0400 Diastolic blood pressure 61 mm[Hg] Alex Riggins MD Work Phone: [facility] 05-04-2022 12:02-0400 Heart rate 90 /min Alex Riggins MD Work Phone: [facility] 05-04-2022 12:02-0400 SaO2% (BldA) [Mass fraction] 100 % Alex Riggins MD Work Phone: [facility] 05-04-2022 12:02-0400 Systolic blood pressure 130 mm[Hg] Alex Riggins MD Work Phone: [facility] 01-26-2022 16:34-0400 Body height 154.9 cm Alex Riggins MD Work Phone: [facility] 01-26-2022 16:34-0400 Body weight 49.13 kg Alex Riggins MD Work Phone: [facility] 01-26-2022 16:34-0400 Diastolic blood pressure 57 mm[Hg] Alex Riggins MD Work Phone: [facility] 01-26-2022 16:34-0400 Heart rate 92 /min Alex Riggins MD Work Phone: [facility] 01-26-2022 16:34-0400 SaO2% (BldA) [Mass fraction] 100 % Alex Riggins MD Work Phone: [facility] 01-26-2022 16:34-0400 Systolic blood pressure 116 mm[Hg] Alex Riggins MD Work Phone: [facility] 01-26-2022 14:46-0400 Diastolic blood pressure 51 mm[Hg] Mri (I-Stat/1.5t) [facility] 01-26-2022 14:46-0400 Heart rate 101 /min Mri (I-Stat/1.5t) [facility] 01-26-2022 14:46-0400 Systolic blood pressure 126 mm[Hg] Mri (I-Stat/1.5t) [facility] 01-26-2022 13:15-0400 Body height 156.2 cm Mri (I-Stat/1.5t) [facility] 01-26-2022 13:15-0400 Body weight 48.08 kg Mri (I-Stat/1.5t) [facility] Encounters Encounter Date Encounter Type Care Provider Facility Start: 03-30-2024 End: 03-30-2024 Subsequent hospital visit by physician [facility] Work Phone: Radiology Comment on above: 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 Start: 03-21-2024 End: 03-21-[address] [facility] Start: 03-12-2024 End: 03-12-2024 ambulatory SHAIKH SYEDA Not Available Start: 03-05-2024 Telephone encounter Yuki finley MD Work Phone: Vascular Medicine Comment on above: Patient calling for results from 02/21 ultrasound Start: 02-22-2024 End: 02-22-2024 ambulatory YUKI CAR Facility:[facility] Start: 02-18-2024 End: 02-18-[address] [facility] Start: 02-16-2024 End: 02-16-2024 [facility] Start: 02-09-2024 End: 02-09-2024 ambulatory [facility] Start: 02-08-2024 End: 02-08-[address] [facility] Start: 02-01-2024 End: 02-01-[address] 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); Acrocyanosis (HCC); Venous reflux Start: 12-28-2023 End: 12-28-2023 ambulatory LUIZ TADEO Not Available Start: 11-10-2023 End: 11-10-2023 ambulatory [facility] Start: 11-10-2023 End: 11-10-2023 Office outpatient visit 15 minutes Laura [facility] Work Phone: [facility] Pulmonary/Sleep Medicine Comment on above: Bronchiectasis (Prim beatris Dx); Cigarette nicotine dependence, uncomplicated; Chronic obstructive pulmonary disease, unspecified COPD type (CMS-HCC); Chronic respiratory failure with hypoxia and hypercapnia ([facility]-HCC); Tobacco dependence; 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Start: 11-07-2023 End: 11-07-2023 ambulatory YUKI CAR Facility:[facility] Start: 11-07-2023 End: 11-07-2023 Patient encounter procedure Yuki Car MD Work Phone: Vascular Medicine Comment on above: Venous hypertension (Primary Dx); Acrocyanosis (HCC); May-Thurner syndrome; Discoloration of skin of multiple sites of lower extremity; NICM (nonischemic cardiomyopathy) (HCC) Start: 11-03-2023 End: 11-03-[address] [facility] Start: 11-01-2023 End: 11-01-2023 ambulatory ALEX RIGGINS Facility:[facility] Start: 11-01-2023 End: 11-01-2023 Patient encounter procedure Alex Riggins MD Work Phone: Cardiology Comment on above: Chronic systolic HF (heart failure) (HCC) (Primary Dx); Protein-calorie malnutrition, unspecified severity (HCC); Chronic respiratory failure with hypoxia (HCC); Ventricular tachycardia (HCC) Start: 10-29-2023 Refill Laura lópez DO Work Phone: [facility] Comment on above: Chronic obstructive pulmonary disease, unspecified COPD type ([facility]); Bronchiectasis Start: 10-13-2023 Orders Only Alexandra Beach RN [facility] Pulmonary/Sleep Medicine Comment on above: Chronic obstructive pulmonary disease, unspecified COPD type ([facility]-HCC) Start: 09-23-2023 End: 09-25-2023 Evaluation and management of inpatient [facility] Start: 09-22-2023 End: 09-24-2023 Evaluation and management of inpatient [facility] Start: 09-22-2023 End: 09-25-2023 [facility] Start: 09-21-2023 Telephone encounter Laura srinivasan DO Work Phone: [facility] Start: 09-09-2023 Orders Only Laura lópez DO Work Phone: [facility] Comment on above: Bronchiectasis (Prim beatris Dx); Pseudomonas aeruginosa infection Start: 08-23-2023 End: 08-23-[address] [facility] Start: 07-21-2023 Telephone encounter Fernanda Gastelum RN Cardiology Comment on above: Forms ([employer] ) Start: 07-12-2023 Telephone encounter Alex flannery MD Work Phone: Cardiology Comment on above: BI Patient assistanc e Start: 05-26-2023 Telephone encounter Alex flannery MD Work Phone: Cardiology Comment on above: Outside Labs Results Start: 04-26-2023 Refill Alex Riggins MD Work Phone: Cardiology Comment on above: Rx Refills Start: 04-07-2023 Refill Alex Riggins MD Work Phone: Cardiology Comment on above: Follow Up; Rx Refill s Start: 03-29-2023 End: 03-29-2023 ambulatory ALEX IRGGINS Facility:[facility] Start: 03-24-2023 End: 03-25-2023 ambulatory LUIZ TADEO Facility:[facility] Start: 03-24-2023 ambulatory ALEX RIGGINS Facility :[facility] Start: 03-24-2023 End: 03-24-2023 Subsequent hospital visit by physician [facility] Echocardiology Testing Comment on above: Chronic systolic HF (heart failure) (HCC) [I50.22] Peripheral arterial disease (HCC) [I73.9] Start: 03-07-2023 Telephone encounter Alex flannery MD Work Phone: Cardiology Comment on above: Follow Up Start: 02-07-2023 Telephone encounter Alex flannery MD Work Phone: Cardiology Comment on above: Appointment Start: 12-30-2022 End: 12-30-2022 Orders Only Alex Riggins MD Work Phone: Cardiology Comment on above: Hypo-osmolality and hyponatremia (Primary Dx); Acute on chronic systolic (congestive) heart failure (HCC) Hypo-osmolality and hyponatremia (Primary Dx); Cardiomyopathy, nonischemic (HCC); Chronic systolic heart failure (HCC); Ventricular tachycardia (HCC); Protein-calorie malnutrition, unspecified severity (HCC) Start: 12-29-2022 Telephone encounter Alex flannery MD Work Phone: Cardiology Comment on above: Follow Up Start: 12-20-2022 End: 12-23-[address] LUIZ TADEO Facility:[facility] Start: 12-06-2022 ambulatory Alex Riggins MD Work Phone: Cardiology Comment on above: Testing Start: 12-06-2022 E-mail encounter fro m caregiver Alex Riggins MD Work Phone: [facility] Start: 12-02-2022 Refill Alex Riggins MD Work Phone: Cardiology Comment on above: Rx Refills Advice Only Start: 11-19-2022 Refill Alex Riggins MD Work Phone: Cardiology Start: 10-29-2022 Telephone encounter Alex flannery MD Work Phone: Cardiology Comment on above: Results (Lab Rcvd) Start: 10-19-2022 End: 10-19-2022 Patient encounter procedure Alex Riggins MD Work Phone: Cardiology Comment on above: Chronic systolic HF (heart failure) (HCC) (Primary Dx); Peripheral arterial disease (HCC) Start: 09-01-2022 End: 09-01-[address] LUIZ TADEO Facility:[facility] Start: 07-09-2022 Telephone encounter Alex flannery MD Work Phone: Cardiology Comment on above: [employer] Start: 06-28-2022 Refill Alex Riggins MD Work Phone: Cardiology Comment on above: Rx Refills Start: 06-07-2022 ambulatory Alex Riggins MD Work Phone: Cardiology Comment on above: [facility] [employer] [facility] [place] [facility] Start: 06-07-2022 E-mail encounter fro m caregiver Alex Riggins MD Work Phone: [facility] Start: 05-20-2022 Telephone encounter Alex flannery MD Work Phone: Cardiology Comment on above: Lab Orders (Faxed) Start: 05-12-2022 Orders Only Alex Riggins MD Work Phone: Cardiology Comment on above: Chronic systolic (co ngestive) heart failure (HCC) (Primary Dx) Start: 05-04-2022 End: 05-04-2022 Patient encounter procedure Alex Riggins MD Work Phone: Cardiology Comment on above: Chronic systolic hea rt failure (HCC) (Primary Dx) Start: 02-23-2022 End: 02-23-2022 Subsequent hospital visit by physician [facility] Work Phone: Molecular Imaging Comment on above: Chronic systolic HF (heart failure) (HCC) [I50.22] Start: 02-04-2022 Telephone encounter Alex flannery MD Work Phone: Cardiology Comment on above: Advice Only Start: 01-26-2022 End: 01-26-2022 Orders Only Tiffanie Dave MD Work Phone: Cardiology Comment on above: Anxiety (Primary Dx) Cardiomyopathy, unsp ecified type (HCC) [I42.9] Chronic systolic HF (heart failure) (HCC) (Primary Dx); Other cardiomyopathy (HCC) Start: 01-08-2022 Telephone encounter Alex flannery MD Work Phone: Cardiology Comment on above: Clinical Update Start: 11-16-2021 Telephone encounter Alex flannery MD Work Phone: Cardiology Comment on above: Counseling Start: 02-14-2021 End: 02-17-2021 ambulatory [facility] Start: 02-14-2021 End: 02-16-2021 Subsequent hospital visit by physician Trino Aguilar Mammo [facility] Mammography Comment on above: Breast cancer screen ing by mammogram Procedures Date Procedure Procedure Detail Performing Clinician Start: 03-30-2024 Ct angio abd&plvis c ntrst mtrl w/wo cntrst img Yuki Car MD Work Phone: Start: 11-10-2023 Follow-up visit Follow-up LAURA MAC Start: 09-23-2023 Adult depression scr eening assessment Alexandra Beach RN Start: 05-24-2023 Lipid 1996 panel - S maria m or Plasma Yuki Car MD Work Phone: Start: 03-24-2023 Echo tthrc r-t 2d w/wom-mode compl spec&colr d Alex Riggins MD Work Phone: Start: 03-24-2023 LVEF ECHO Alex flannery MD Work Phone: Start: 03-24-2023 Non-invasive physiol ogic study extremity 3 levls Alex Riggins MD Work Phone: Start: 05-03-2022 Adult depression scr eening assessment Alex Riggins MD Work Phone: Start: 02-23-2022 Rp loclzj karo spect w/ct 1 area 1 day imaging Alex Riggins MD Work Phone: Start: 01-26-2022 Cardiac mri w/wo con trast & further seq Alex Riggins MD Work Phone: Start: 10-28-2021 Adult depression scr eening assessment Alex Riggins MD Work Phone: Start: 02-14-2021 End: 02-14-2021 Screening mammography bi 2-view breast inc cad Pili Stearns Work Phone: Start: 11-12-2020 Lipid 1996 panel - S maria m or Plasma Alex Riggins MD Work Phone: Plan of Treatment Date Care Activity Detail Author Start: 05-24-2028 Lipid panel Lipid Screening [facility] Start: 02-17-2027 Diabetes Screening Diabetes Screenin [facility] Start: 09-24-2026 Diabetes Screening Diabetes Screenin g [facility] Start: 08-09-2026 DTaP,Tdap and Td Vac cines (2 - Td or Tdap) DTaP,Tdap and Td Vaccines (2 - Td or Tdap) [facility] Start: 08-09-2026 DTaP/Tdap/Td vaccine (2 - Td or Tdap) DTaP/Tdap/Td vaccine (2 - Td or Tdap) [facility] Work Phone: Start: 08-09-2026 Urine microalbumin profile DTa P,Tdap,Td Vaccine (2 - Td or Tdap) [facility] Start: 03-24-2026 DIABETES SCREEN DIABETES SCREEN [facility] Start: 03-24-2026 Diabetes Screening Diabetes Screenin g [facility] Start: 12-30-2025 DIABETES SCREEN DIABETES SCREEN [facility] Start: 11-12-2025 Lipid 1996 panel - S maria m or Plasma Lipid Screening [facility] Start: 11-12-2025 Lipid panel Lipid Screening [facility] Start: 11-12-2025 LIPID SCREEN LIPID SCREEN [facility] Start: 12-04-2024 Screening for malign ant neoplasm of colon [facility] Start: 11-09-2024 Adult BMI Screening Adult BMI Screen ing [facility] Start: 11-09-2024 Tobacco Screening Tobacco Screening [facility] Start: 11-02-2024 DIABETES SCREEN DIABETES SCREEN [facility] Start: 09-24-2024 Adult BMI Screening Adult BMI Screen ing [facility] Start: 09-23-2024 Depression Screening Depression Scre ening [facility] Start: 09-23-2024 Tobacco Screening Tobacco Screening [facility] Start: 08-18-2024 Adult BMI Screening Adult BMI Screen ing [facility] Start: 08-18-2024 Tobacco Screening Tobacco Screening [facility] Start: 05-06-2024 Influenza vaccination Influenza Vacc ine (#1) [facility] Start: 05-01-2024 End: 05-01-2024 Patient encounter procedure 05/01/2024 11:00 AM EDT Office Visit Cardiology [address] [id number] Mima Carpio, MOLD BURNER.STAFF RESEARCH SCIENTIST [address] [place] [address] DX:Chronic systolic HF (heart failure) (HCC) [I50.22] Cardiology Comment on above: DX:Chronic systolic HF (heart failure) (HCC) [I50.22] Start: 03-30-2024 End: 03-30-2024 Patient encounter procedure 03/30/2024 11:00 AM EDT Appointment Radiology [address] [id number] 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] Radiology Comment on above: 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] Start: 03-12-2024 End: 11-09-2024 CT Chest for screening WO contrast CT low dose lung screening (Annual) Imaging Routine Cigarette nicotine dependence, uncomplicated Expected: 03/12/2024 (Approximate), Expires: 11/09/2024 [facility] Work Phone: Comment on above: Expected: 03/12/2024 (Approximate), Expires: 11/09/2024 Start: 02-09-2024 End: 02-09-2024 Patient encounter procedure 02/09/2024 11:00 AM EDT Office Visit [facility] [address] [place] [address] Laura Mac, DO [address] [address] [facility] Start: 12-11-2023 End: 11-09-2024 Pulmonary function test Spirometry (Flow Volume Loop) pre/post short acting bronchodilator Pulmonary function test Spirometry (Flow Volume Loop) pre/post short acting bronchodilator PFT Routine Bronchiectasis Expected: 12/11/2023 (Approximate), Expires: 11/09/2024 [facility] Comment on above: Expected: 12/11/2023 (Approximate), Expires: 11/09/2024 Start: 11-21-2023 Covid-19 Vaccine ( season) Covid-19 Vaccine () [facility] Start: 11-10-2023 End: 11-10-2023 Patient encounter procedure 11/10/2023 10:45 AM EST Office Visit [facility] [address] [place] [address] Laura Mac, DO [address] [facility] [address] [place] [address] [facility] Start: 09-05-2023 Advance Directive Discussion Advance Directive Discussion [facility] Start: 09-05-2023 Behavioral Health Screening Behavioral Health Screening [facility] Start: 09-05-2023 Depression Assessment Depression Ass essment [facility] Start: 05-06-2023 Covid-19 Vaccine ( season) Covid-19 Vaccine () [facility] Start: 05-06-2023 Influenza vaccination C [facility] Start: 05-03-2023 Adult depression scr eening assessment DEPRESSION SCREENING [facility] Start: 01-16-2023 End: 10-19-2023 Echocardiography ECHO Cardiology Routine Chronic systolic HF (heart failure) (HCC) Expected: 01/16/2023, Expires: 10/19/[address] [facility] Work Phone: Comment on above: Expected: 01/16/2023 , Expires: 10/19/2023 Start: 12-30-2022 End: 03-01-2023 Comprehensive metabolic 2000 panel - Serum or Plasma [facility] Work Phone: Comment on above: Expected: 12/30/2022 , Expires: 03/01/2023 Start: 12-30-2022 End: 03-01-2023 Natriuretic peptide.B prohormone N-Terminal [Mass/volume] in Serum or Plasma [facility] Work Phone: Comment on above: Expected: 12/30/2022 , Expires: 03/01/2023 Start: 12-30-2022 End: 03-01-2023 Sodium [Moles/volume] in Urine collected for unspecified duration [facility] Work Phone: Comment on above: Expected: 12/30/2022 , Expires: 03/01/2023 Start: 11-01-2022 COVID-19 VACCINE (6 - Moderna series) COVID-19 VACCINE (6 - Moderna series) [facility] Start: 10-28-2022 Adult depression scr eening assessment DEPRESSION SCREENING [facility] Start: 09-05-2022 ADVANCE DIRECTIVE DISCUSSION ADVANCE DIRECTIVE DISCUSSION [facility] Start: 09-05-2022 DEPRESSION ASSESSMENT DEPRESSION ASS ESSMENT [facility] Start: 05-12-2022 End: 07-12-2022 Basic metabolic 2000 panel - Serum or Plasma BASIC METABOLIC PNL Lab Routine Chronic systolic (congestive) heart failure (HCC) Expected: 05/12/2022, Expires: 07/12/[address] [facility] Work Phone: Comment on above: Expected: 05/12/2022 , Expires: 07/12/2022 Start: 05-06-2022 Influenza vaccination INFLUENZA (#1) [facility] Start: 05-04-2022 End: 07-04-2022 Comprehensive metabolic 2000 panel - Serum or Plasma COMP METABOLIC PANEL Lab Routine Chronic systolic heart failure (HCC) Expected: 05/04/2022, Expires: 07/04/[address] [facility] Work Phone: Comment on above: Expected: 05/04/2022 , Expires: 07/04/2022 Start: 05-04-2022 End: 07-04-2022 Natriuretic peptide.B prohormone N-Terminal [Mass/volume] in Serum or Plasma NT PRO BNP Lab Routine Chronic systolic heart failure (HCC) Expected: 05/04/2022, Expires: 07/04/[address] [facility] Work Phone: Comment on above: Expected: 05/04/2022 , Expires: 07/04/2022 Start: 03-10-2022 COVID-19 VACCINE (5 - Booster for Moderna series) COVID-19 VACCINE (5 - Booster for Moderna series) [facility] Start: 02-14-2022 Mammography [facility] Start: 02-14-2022 Screening for malign ant neoplasm of breast Mammogram Screening [facility] Start: 01-27-2022 End: 03-29-2022 Comprehensive metabolic 2000 panel - Serum or Plasma COMP METABOLIC PANEL Lab Routine Chronic systolic HF (heart failure) (HCC) Other cardiomyopathy (HCC) Expected: 01/27/2022, Expires: 03/29/[address] [facility] Work Phone: Comment on above: Expected: 01/27/2022 , Expires: 03/29/2022 Start: 01-27-2022 End: 03-29-2022 IMMUNOFIXATION SCREEN, SERUM IMMUNOFIXATION SCREEN, SERUM Lab Routine Chronic systolic HF (heart failure) (HCC) Other cardiomyopathy (HCC) Expected: 01/27/2022, Expires: 03/29/[address] [facility] Work Phone: Comment on above: Expected: 01/27/2022 , Expires: 03/29/2022 Start: 01-27-2022 End: 03-29-2022 KAPPA/SOUSA,FREE,SER KAPPA/SOUSA,FREE,SER Lab Routine Chronic systolic HF (heart failure) (HCC) Other cardiomyopathy (HCC) Expected: 01/27/2022, Expires: 03/29/[address] [facility] Work Phone: Comment on above: Expected: 01/27/2022 , Expires: 03/29/2022 Start: 01-27-2022 End: 03-29-2022 MONOCLONAL PROT UR W/INTERP MONOCLONAL PROT UR W/INTERP Lab Routine Chronic systolic HF (heart failure) (HCC) Other cardiomyopathy (HCC) Expected: 01/27/2022, Expires: 03/29/[address] [facility] Work Phone: Comment on above: Expected: 01/27/2022 , Expires: 03/29/2022 Start: 01-27-2022 End: 03-29-2022 Natriuretic peptide.B prohormone N-Terminal [Mass/volume] in Serum or Plasma NT PRO BNP Lab Routine Chronic systolic HF (heart failure) (HCC) Other cardiomyopathy (HCC) Expected: 01/27/2022, Expires: 03/29/[address] [facility] Work Phone: Comment on above: Expected: 01/27/2022 , Expires: 03/29/2022 Start: 01-27-2022 End: 03-29-2022 Protein/Creatinine [Mass Ratio] in Urine PROTEIN CREATININE RATIO Lab Routine Chronic systolic HF (heart failure) (HCC) Other cardiomyopathy (HCC) Expected: 01/27/2022, Expires: 03/29/[address] [facility] Work Phone: Comment on above: Expected: 01/27/2022 , Expires: 03/29/2022 Start: 11-20-2021 COVID-19 VACCINE (4 - Booster for Moderna series) COVID-19 VACCINE (4 - Booster for Moderna series) [facility] Start: 09-05-2021 ADVANCE DIRECTIVE DISCUSSION ADVANCE DIRECTIVE DISCUSSION [facility] Start: 09-05-2021 DEPRESSION ASSESSMENT DEPRESSION ASS ESSMENT [facility] Start: 04-10-2021 Screening for malign ant neoplasm of breast Breast cancer screen [facility] Phone: Start: 02-25-2019 Annual Wellness Visi t (AWV) Annual Wellness Visit (AWV) [facility] Phone: Start: 2017 BONE DENSITY BONE DENSITY [facility] Start: 2017 Bone Density Screening Bone Density Screening [facility] Start: 2017 Fall Risk Screening Fall Risk Screen [facility] Start: 2017 PNEUMOVAX AGE 65 AND OVER WITH 5YR LOOKBACK (#1) PNEUMOVAX AGE 65 AND OVER WITH 5YR LOOKBACK (#1) [facility] Start: 2017 Screening for osteoporosis Bone Dens ity Screening [facility] Start: 10-25-2016 Lipid panel Lipid screen [facility] Phone: Start: 2012 RSV Vaccine (1 - 1-d ose 60+ series) RSV Vaccine (1 - 1-dose 60+ series) [facility] Start: 2007 Screening for osteoporosis DEX A (modify frequency per FRAX score) [facility] Phone: Start: 2002 Administration of varicella zoster vaccine Zoster (Shingles) Vaccine (1 of 2) [facility] Start: 2002 Screening for malign ant neoplasm of colon Colon cancer screen colonoscopy [facility] Phone: Start: 2002 Shingles Vaccine (1 of 2) Saldivar gles Vaccine (1 of 2) [facility] Phone: Start: 2002 SHINGRIX VACCINE (1 of 2) SALDIVAR GRIX VACCINE (1 of 2) [facility] Start: 1997 COLOGUARD (FIT-DNA) COLOGUARD (FIT-D NA) [facility] Start: 1997 Colonoscopy COLONOSCOPY [facility] Start: 1997 COLORECTAL CANCER SCREENING COLORECTAL CANCER SCREENING [facility] Start: [address] COLONOGRAPHY [facility] Start: 1997 FECAL OCCULT BLOOD FECAL OCCULT BLOO D [facility] Start: 1997 Screening for malign ant neoplasm of colon [facility] Start: 1997 SIGMOIDOSCOPY SIGMOIDOSCOPY [facility] Start: 1971 Urine microalbumin profile [facility] Start: 1970 ANNUAL PCP TEAM [employer] OFFICER MARCO ANTONIO DISEASE VISIT ANNUAL PCP TEAM CHRONIC DISEASE VISIT [facility] Start: 1970 Anxiety Screening Anxiety Screening [facility] Start: 1970 Depression Screening Depression Scre ening [facility] Start: 1970 HEPATITIS C SCREENING HEPATITIS C [facility] Start: 1970 Hepatitis C screening Hepatitis C [facility] Start: 1964 Depression Screening Depression Scre ening [facility] Start: 1958 Pneumococcal Vaccine : 65+ (1 - PCV) Pneumococcal Vaccine: 65+ (1 - PCV) [facility] Start: 1958 PNEUMOCOCCAL: 65+ (1 - PCV) PNEUMOCOCCAL: 65+ (1 - PCV) [facility] Start: 1952 Hepatitis C screening Hepatitis C [facility] Work Phone: Start: 1952 Medicare Annual Well ness Visit Medicare Annual Wellness Visit [facility] Start: 1952 Tobacco Counseling Tobacco Counselin g [facility] End: 04-14-2025 CTA Abdominal vessels and Pelvis vessels W contrast IV CTA ABD/PEL W IVCON Radiology Routine 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 Work Phone: Comment on above: 1 Occurrences starti ng 03/15/2024 until 04/14/2025 End: 11-01-2024 Echocardiography ECHO Cardiology Routine Chronic systolic HF (heart failure) (HCC) 1 Occurrences starting 11/01/2023 until 11/01/[address] [facility] Work Phone: Comment on above: 1 Occurrences starti ng 11/01/2023 until 11/01/2024 End: 02-26-2023 NM SPECT/CT CARDIAC AMYLOID NM SPECT/CT CARDIAC AMYLOID Radiology Routine Chronic systolic HF (heart failure) (HCC) Other cardiomyopathy (HCC) 1 Occurrences starting 01/27/2022 until 02/26/[address] [facility] Work Phone: Comment on above: 1 Occurrences starti ng 01/27/2022 until 02/26/2023 End: 10-19-2023 PVR LEG ZAHIRA [facility] LAB PVR LEG [facility] Vascular Lab Routine Peripheral arterial disease (HCC) Chronic systolic HF (heart failure) (HCC) 1 Occurrences starting 10/19/2022 until 10/19/[address] 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 Work Phone: Comment on above: 1 Occurrences starti ng 11/07/2023 until 11/06/2024 End: 01-11-2025 US Visceral artery US VISCERAL VEIN COMPLETE VAS LAB Vascular Lab Routine 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 Occurrences starting 01/12/2024 until 01/11/[address] [facility] Work Phone: Comment on above: 1 Occurrences starti ng 01/12/2024 until 01/11/2025 [facility] Immunizations Immunization Date Immunization Notes Care Provider Fa chantellty 08-10-2023 RSV, bivalent, prote in subunit RSVpreF, diluent reconstituted, 0.5 mL, PF Alexandra Baylee RN [facility] 06-29-2023 influenza, injectabl e, quadrivalent, preservative free Alexandra Baylee RN [facility] 06-29-2023 influenza virus vacc ine, unspecified formulation Yuki Car MD Work Phone: [facility] 06-28-2022 influenza, injectabl e, quadrivalent, preservative free Alexandra Sidestephanie RN [facility] 06-28-2022 influenza virus vacc ine, unspecified formulation Alex Riggins MD Work Phone: [facility] 07-27-2021 influenza, injectabl e, quadrivalent, preservative free Alexandra Baylee KIM [facility] 11-13-2020 COVID-19, mRNA, LNP- S, PF, 100mcg/0.5mL Dose Laura Bubba DO Work Phone: [facility] 10-16-2020 COVID-19, mRNA, LNP- S, PF, 100mcg/0.5mL Dose Laura Bubba DO Work Phone: [facility] 07-09-2020 Influenza, High-dose , Quadrivalent Alexandra Baylee KIM [facility] 07-07-2020 influenza virus vacc ine, unspecified formulation Alexandra Beahc RN [facility] 07-25-2019 influenza, high dose seasonal, preservative-free Alexandra Baylee RN [facility] 08-06-2018 Seasonal trivalent influenza vaccine, adjuvanted, preservative free Alexandra Baylee RN [facility] 07-08-2017 influenza, high dose seasonal, preservative-free Alexandra Baylee RN [facility] 07-08-2017 pneumococcal polysaccharide vaccine, 23 valent Alexandra Baylee RN [facility] 08-09-2016 pneumococcal conjuga te vaccine, 13 valent Alexandra Sidestephanie RN [facility] 08-09-2016 tetanus toxoid, redu trish diphtheria toxoid, and acellular pertussis vaccine, adsorbed Alexandra Beach RN [facility] 07-28-2016 influenza virus vacc ine, unspecified formulation Alexandra Beach RN [facility] 08-25-2015 influenza, seasonal, injectable Alexandra Beach RN [facility] 11-09-2012 pneumococcal polysaccharide vaccine, 23 valent [facility] Phone: 05-20-2008 pneumococcal polysaccharide vaccine, 23 valent [facility] Phone: Payers Date Payer Category Payer Medicare MEDICARE MEDICAR E A AND B [id number] 2017-Present [phone] [place] [address] Medicare [id number] 2017 Medicare [id number] 2017 Unknown [employer] [place] MEDICARE SUPPLEMENT [id number] 2017-Present [phone] [id number] [employer] [place] [address] Indemnity [id number] 2017 Unknown [id number]. [id number] 2014 Unknown [id number]. [id number] 1959 Medicare [id number] [id number]. [id number] 1959 Unknown [id number] 1952 Unknown [id number] 2.16.840.1.251373.3.579.2.17 6 1952 Unknown [id number] 2.16.840.1.893901.3.579.2.59 3 1952 Unknown [id number] 2.16.840.1.063336.3.579.2.59 3 1952 Unknown [id number] 2.16.840.1.354651.3.579.2.12 86 1952 Unknown [id number] 2.16.840.1.084547.3.579.2.12 86 1952 Unknown [id number] 2.16.840.1.112502.3.579.2.12 86 1952 Unknown [id number] 2.16.840.1.981899.3.579.2.12 86 1952 Unknown [id number] 2.16.840.1.541668.3.579.2.12 86 1952 Unknown [id number] 2.16.840.1.983478.3.579.2.12 86 1952 Unknown [id number] 2.16.840.1.446955.3.579.2.12 59 1952 Unknown [id number] 2.16.840.1.379675.3.579.2.12 59 1952 Unknown [id number] 2.16.840.1.866290.3.579.2.12 59 1952 Unknown [id number] 2.16.840.1.478544.3.579.2.12 86 1952 Unknown [id number] 2.16.840.1.322561.3.579.2.12 86 1952 Unknown [id number] 2.16.840.1.017567.3.579.2.12 86 1952 Unknown [id number] 2.16.840.1.185841.3.579.2.12 86 1952 Unknown [id number] 2.16.840.1.198386.3.579.2.12 86 1952 Unknown [id number] 2.16.840.1.679623.3.579.2.12 86 1952 Unknown [id number] 2.16.840.1.925700.3.579.2.12 86 1952 Unknown [id number] 2.16.840.1.891801.3.579.2.12 86 1952 Unknown [id number] 2.16.840.1.845913.3.579.2.12 86 Social History Date Type Detail Facility Start: 02-14-2021 End: 11-01-2023 Tobacco smoking status NMIS Current every day smoker [facility] History of tobacco use Cigarette Smoker M [facility] Start: 02-14-2021 End: 03-29-2023 Cigarettes smoked current (pack per day) - Reported [facility] Start: 02-14-2021 Tobacco use and exposure Former user [facility] Start: 02-14-2021 End: 11-10-2023 Alcohol intake Current non-drinker of alcohol (finding) [facility] [employer] Phone: Start: 1950 Sex Assigned At Not on file [facility] [employer] Phone: Start: 11-02-2021 End: 11-01-2023 Tobacco use and exposure Smokeless tobacco non-user [facility] Start: 11-02-2021 End: 01-12-2024 Alcohol intake Ex-drinker (finding) [facility] Start: 11-02-2021 End: 11-01-2023 Tobacco Comment 10-12 cigaretts daily [facility] Start: 1950 Sex Assigned At Female C [facility] Start: 10-03-2021 End: 05-12-2022 Exposure to SARS-CoV-2 (event) Not sure [facility] Start: 01-18-2022 End: 05-04-2022 Exposure to SARS-CoV-2 (event) Unable to assess [facility] Start: 11-02-2021 End: 03-29-2023 Tobacco use panel [facility] Adult Depression Screening Assessment 1 [facility] Start: 10-15-2020 Gender identity Identifies as female gender (finding) [facility] Start: 10-15-2020 Sexual orientation Heterosexual (cornel lanier) [facility] Start: 10-29-2022 Tobacco Comment She is in the quit now program [facility] How often to you hav e a drink containing alcohol? Monthly or less [facility] How many standard drinks containing alcohol do you have on a typical day? 1 or 2 [facility] How often do you hav e 6 or more drinks on 1 occasion? Never [facility] Goals Date Patient Goal Desired Activity /State Personal health goal Comment on above: Formatting of this n ote might be different from the original. Evaluation of progress towards goal: get back to work Personal health goal Clinical Notes 11-16-2021 to 03-30-2024 Adelina Villanueva RT(R) - 03/30/2024 11:00 AM EDTSAdelina cassidy RT(Hernandez) - 03/30/2024 11:00 AM EDTTelephone Encounter - Yuki Car MD - 03/15/2024 8:54 AM EDTPatient Instructions Note Date & Type Note Facility 03-30-2024 Procedure note Radiology Service Progress Note DATE OF SERVICE: March 30, 2024 TIME: 10:49 AM PATIENT IDENTITY VERIFICATION COMPLETED USING TWO (2) STANDARD IDENTIFIERS: Name and Date of confirmed by patient verbally and Name and Date of confirmed by identification band. FALL SCREENING: Has the patient had 2 falls in the last year or 1 fall with injury or currently using an Ambulatory Assistive Device (Walker, Cane, Wheelchair, Crutches, etc.)? No PATIENT GENDER DATA: Female. status: : No status: NO. PATIENT RELEVANT IMPLANT DATA REVIEWED: Not Applicable PATIENT PRESENTS WITH AN IMPLANTABLE OR ATTACHED ICT PROGRAMMER: No ALLERGIES: Reviewed and unchanged CONTRAST ALLERGY: NO. EXAM: CT -CONTRAST INDUCED NEPHROPATHY RISK FACTORS: Patient age > 60 years CREATININE: Creatinine Date Value Ref Range Status 03/24/2023 0.49 (L) 0.58 - 0.96 mg/dL Final 12/30/2022 0.73 0.58 - 0.96 mg/dL Final 11/02/2021 0.52 (L) 0.58 - 0.96 mg/dL Final Estimated Glomerular Filtration Rate Date Value Ref Range Status 03/24/2023 101 >=60 mL/min/1.73m Final Comment: Estimated Glomerular Filtration Rate (eGFR) is calculated using the 2020 CKD-EPI creatinine equation. This equation utilizes serum creatinine, sex, and age as parameters. The creatinine assay has traceable calibration to isotope dilution-mass spectrometry. Refer to KDIGO guidelines for clinical interpretation. In patients with unstable renal function, e.g. those with acute kidney injury, the eGFR may not accurately reflect actual GFR. P.O.C.T. RESULTS: POC done: Yes, See Lab Tab March 30, 2024 TREATMENT: N/A PERIPHERAL IV DATA: Ambulatory: A peripheral IV was started in the Right antecubital site with a Angio cath: 22 gauge. RADIOLOGY DEPARTMENT: CT; Exam(s) Completed: CTA Abdomen Pelvis SIGNATURE: RT Analilia(R) PATIENT NAME: Marcela Brewer DATE: March 30, 2024 TIME: 10:49 AM [facility] 03-30-2024 Procedure note Radiology Service Progress Note DATE OF SERVICE: March 30, 2024 TIME: 10:49 AM PATIENT IDENTITY VERIFICATION COMPLETED USING TWO (2) STANDARD IDENTIFIERS: Name and Date of confirmed by patient verbally and Name and Date of confirmed by identification band. FALL SCREENING: Has the patient had 2 falls in the last year or 1 fall with injury or currently using an Ambulatory Assistive Device (Walker, Cane, Wheelchair, Crutches, etc.)? No PATIENT GENDER DATA: Female. status: : No status: NO. PATIENT RELEVANT IMPLANT DATA REVIEWED: Not Applicable PATIENT PRESENTS WITH AN IMPLANTABLE OR ATTACHED ICT PROGRAMMER: No ALLERGIES: Reviewed and unchanged CONTRAST ALLERGY: NO. EXAM: CT -CONTRAST INDUCED NEPHROPATHY RISK FACTORS: Patient age > 60 years CREATININE: Creatinine Date Value Ref Range Status 03/24/2023 0.49 (L) 0.58 - 0.96 mg/dL Final 12/30/2022 0.73 0.58 - 0.96 mg/dL Final 11/02/2021 0.52 (L) 0.58 - 0.96 mg/dL Final Estimated Glomerular Filtration Rate Date Value Ref Range Status 03/24/2023 101 >=60 mL/min/1.73m Final Comment: Estimated Glomerular Filtration Rate (eGFR) is calculated using the 2020 CKD-EPI creatinine equation. This equation utilizes serum creatinine, sex, and age as parameters. The creatinine assay has traceable calibration to isotope dilution-mass spectrometry. Refer to KDIGO guidelines for clinical interpretation. In patients with unstable renal function, e.g. those with acute kidney injury, the eGFR may not accurately reflect actual GFR. P.O.C.T. RESULTS: POC done: Yes, See Lab Tab March 30, 2024 TREATMENT: N/A PERIPHERAL IV DATA: Ambulatory: A peripheral IV was started in the Right antecubital site with a Angio cath: 22 gauge. RADIOLOGY DEPARTMENT: CT; Exam(s) Completed: CTA Abdomen Pelvis SIGNATURE: RT Analilia(R) PATIENT NAME: Marcela Brewer DATE: March 30, 2024 TIME: 10:49 AM documented in this encounter [facility] 03-15-2024 Telephone encounter Note Order in [facility] for CTV. [facility] 03-15-2024 Miscellaneous Notes Order in [facility] for CTV. Per Dr. Car's orders, pt notified of the following: Please let patient know that although there were some areas of reduced visualization due to overlying bowel gas, the left common iliac and external iliac vein were widely open and had normal waveforms. Given the areas of poor visualization they could not definitively rule out May Thurner syndrome, but I think it's unlikely to be present (or unlikely to be present to a problematic degree) based on the open segments of vein that we do see. She would need CT venogram if desiring additional testing, otherwise can just stay with management with compression socks. Pt verbalized understanding of all results. Pt has no further questions and would like to procedure with CT Venogram. Will notify Dr. Car to place order. Pt notified manager front will reach out to schedule test once the order was placed. Pt in agreement. Frantz Becerra RN Please let patient know that although there were some areas of reduced visualization due to overlying bowel gas, the left common iliac and external iliac vein were widely open and had normal waveforms. Given the areas of poor visualization they could not definitively rule out May Thurner syndrome, but I think it's unlikely to be present (or unlikely to be present to a problematic degree) based on the open segments of vein that we do see. She would need CT venogram if desiring additional testing, otherwise can just stay with management with compression socks. 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 Physician:Roxana Car MD Requested Prescriptions No prescriptions requested or ordered in this encounter documented in this encounter [facility] 03-14-2024 Telephone encounter Note Per Dr. Car's orders, pt notified of the following: Please let patient know that although there were some areas of reduced visualization due to overlying bowel gas, the left common iliac and external iliac vein were widely open and had normal waveforms. Given the areas of poor visualization they could not definitively rule out May Thurner syndrome, but I think it's unlikely to be present (or unlikely to be present to a problematic degree) based on the open segments of vein that we do see. She would need CT venogram if desiring additional testing, otherwise can just stay with management with compression socks. Pt verbalized understanding of all results. Pt has no further questions and would like to procedure with CT Venogram. Will notify Dr. Car to place order. Pt notified manager front will reach out to schedule test once the order was placed. Pt in agreement. Frantz Becerra RN [facility] 03-13-2024 Telephone encounter Note Please let patient know that although there were some areas of reduced visualization due to overlying bowel gas, the left common iliac and external iliac vein were widely open and had normal waveforms. Given the areas of poor visualization they could not definitively rule out May Thurner syndrome, but I think it's unlikely to be present (or unlikely to be present to a problematic degree) based on the open segments of vein that we do see. She would need CT venogram if desiring additional testing, otherwise can just stay with management with compression socks. 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 Physician:Roxana Car MD Requested Prescriptions No prescriptions requested or ordered in this encounter [facility] 01-12-2024 Note HNO ID: [id number] Author: YUKI CAR MD Service: ? Author Type: Physician Type: Progress Notes Filed: 01/18/2024 22:09 Note Text: [facility] [place] [facility] Department of Cardiovascular Medicine SECTION OF VASCULAR MEDICINE OUTPATIENT VISIT DATE January 12, 2024 OUTPATIENT VISIT TYPE ESTABLISHED Follow up regarding: leg discoloration, venous hypertension Allergies: is allergic to pantoprazole, carbinoxamine-pseudoephedrine, cephalexin, metaxalone, metoclopramide, montelukast, sertraline, ciprofloxacin, erythromycin, and levofloxacin. Medications: Current Outpatient Medications Medication Sig sodium chloride (NEBUSAL) 3 % nebulizer solution INHALE CONTENTS OF 1 VIAL VIA NEBULIZER EVERY DAY hefkkctcxi-whbzuoas-tkdgwsbkgk (BREZTRI AEROSPHERE) 160-9-4.8 mcg/actuation HFA aerosol inhaler Inhale 2 Puffs as instructed. torsemide (DEMADEX) 10 mg tablet Take 1 tablet by mouth once daily as needed. empagliflozin (JARDIANCE) 10 mg tablet Take 1 tablet by mouth once daily. metoprolol succinate ER (TOPROL XL) 50 mg 24 hr tablet Take 1 tablet by mouth twice daily. sacubitril-valsartan (ENTRESTO) 49-51 mg tablet Take 1 tablet by mouth twice daily. acetaminophen (TYLENOL) 325 mg tablet Take 650 mg by mouth every 4 hours as needed. albuterol HFA (PROVENTIL HFA, VENTOLIN HFA) 90 mcg/actuation inhaler once daily as needed. atorvastatin (LIPITOR) 10 mg tablet Take 10 mg by mouth once daily. calcium carbonate-vitamin D3 1,000 mg-20 mcg (800 unit) tab Take 1 tablet by mouth once daily. esomeprazole (NEXIUM) 40 mg capsule Take 40 mg by mouth twice daily. levalbuterol (XOPENEX) 1.25 mg/3 mL nebulizer solution four times daily. ipratropium (ATROVENT) 0.02 % nebulizer solution Use 0.5 mg via nebulizer four times daily. LORazepam (ATIVAN) 1 mg tablet Take 1 mg by mouth four times daily. nitroglycerin (NITRO-BID) 2 % ointment as needed. Raynaud's predniSONE (DELTASONE) 10 mg tablet Take 10 mg by mouth once daily. roflumilast (DALIRESP) 500 mcg tab Take 500 mcg by mouth once daily. Vitamin E, dl, acetate, (VITAMIN E) 400 unit capsule Take 400 Units by mouth once daily. Current Facility-Administered Medications Medication Dose Route Frequency perflutren lipid microspheres 1.3 mL in NaCl (PF) 0.9% 10 mL injection (DEFINITY) INTRAVENOUS DIRECTED PRN sodium chloride 0.9 % (flush) 10 mL (BD POSIFLUSH) 10 mL INTRAVENOUS DIRECTED PRN Subjective: Seen for follow up. Accompanied by her . No change in leg symptoms. Was ill and had to reschedule leg venous US studies to be done locally. Reviewed images with her -- no significant superficial venous reflux to treat with venous ablation. From standpoint of ??-May Thurner physiology (given sx worse on left) imaging shows patent IVC and iliac veins, however, did not evaluate for presence of vein compression. She is amenable to have additional US images obtained at [facility] [place] lab [place]. Objective: BP 145/69 (BP Site: Right Arm, BP Position: Sitting, BP Cuff Size: Regular Adult) Pulse 97 Ht 154.9 cm (5' 1 ) Wt 46.4 kg (102 lb 4.8 oz) SpO2 100% BMI 19.33 kg/m? General: Alert and oriented, in no acute distress, pleasant mood. On supplemental O2 per NC. Skin: Healthy, intact, no ulcerations, no rashes. HEENT: Head normocephalic, extraocular muscles intact, sclera anicteric, nasal and oral mucosa moist and pink, neck supple, no JVD, no carotid bruit. Cardiovascular: Heart has a regular rate and rhythm without murmur. Respiratory: Lungs clear auscultation bilaterally. Gastrointestinal: Abdomen soft and nontender. No abdominal bruit or palpable mass. Musculoskeletal: No cyanosis or clubbing. Peripheral vascular: Dorsalis pedis and posterior tibial pulses 2+/2 bilaterally. Feet and toes warm pink and well perfused. Lower extremities: Bilateral feet L>R with purple color pooling in the toes and feet with dependency despite being fairly warm to the touch. Trace right ankle edema, mild 1-2+ pitting edema around the left ankle. Mild hemosiderin staining L>R lower leg and numerous small scattered superficial veins. Labs None Imaging Visceral venous US: [facility], [address] [place] [address], [place] [id number] Patient Name: MARCELA BREWER MR#: [id number] : 1950 Exam Date: 01/10/2024 Ordering Doctor: Non-Staff Physician PROCEDURE: VC ULTRASOUND IVC LMT COMPARISON: None. 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 [facility] 01-12-2024 History of Present illness Narrative Images from the original note were not included. [facility] [place] [facility] Department of Cardiovascular Medicine SECTION OF VASCULAR MEDICINE OUTPATIENT VISIT DATE January 12, 2024 OUTPATIENT VISIT TYPE ESTABLISHED Follow up regarding: leg discoloration, venous hypertension Allergies: is allergic to pantoprazole, carbinoxamine-pseudoephedrine, cephalexin, metaxalone, metoclopramide, montelukast, sertraline, ciprofloxacin, erythromycin, and levofloxacin. Medications: Current Outpatient Medications Medication Sig sodium chloride (NEBUSAL) 3 % nebulizer solution INHALE CONTENTS OF 1 VIAL VIA NEBULIZER EVERY DAY rjqiwokrji-jsbcwxph-adxgprbohy (BREZTRI AEROSPHERE) 160-9-4.8 mcg/actuation HFA aerosol inhaler Inhale 2 Puffs as instructed. torsemide (DEMADEX) 10 mg tablet Take 1 tablet by mouth once daily as needed. empagliflozin (JARDIANCE) 10 mg tablet Take 1 tablet by mouth once daily. metoprolol succinate ER (TOPROL XL) 50 mg 24 hr tablet Take 1 tablet by mouth twice daily. sacubitril-valsartan (ENTRESTO) 49-51 mg tablet Take 1 tablet by mouth twice daily. acetaminophen (TYLENOL) 325 mg tablet Take 650 mg by mouth every 4 hours as needed. albuterol HFA (PROVENTIL HFA, VENTOLIN HFA) 90 mcg/actuation inhaler once daily as needed. atorvastatin (LIPITOR) 10 mg tablet Take 10 mg by mouth once daily. calcium carbonate-vitamin D3 1,000 mg-20 mcg (800 unit) tab Take 1 tablet by mouth once daily. esomeprazole (NEXIUM) 40 mg capsule Take 40 mg by mouth twice daily. levalbuterol (XOPENEX) 1.25 mg/3 mL nebulizer solution four times daily. ipratropium (ATROVENT) 0.02 % nebulizer solution Use 0.5 mg via nebulizer four times daily. LORazepam (ATIVAN) 1 mg tablet Take 1 mg by mouth four times daily. nitroglycerin (NITRO-BID) 2 % ointment as needed. Raynaud's predniSONE (DELTASONE) 10 mg tablet Take 10 mg by mouth once daily. roflumilast (DALIRESP) 500 mcg tab Take 500 mcg by mouth once daily. Vitamin E, dl, acetate, (VITAMIN E) 400 unit capsule Take 400 Units by mouth once daily. Current Facility-Administered Medications Medication Dose Route Frequency perflutren lipid microspheres 1.3 mL in NaCl (PF) 0.9% 10 mL injection (DEFINITY) INTRAVENOUS DIRECTED PRN sodium chloride 0.9 % (flush) 10 mL (BD POSIFLUSH) 10 mL INTRAVENOUS DIRECTED PRN Subjective: Seen for follow up. Accompanied by her . No change in leg symptoms. Was ill and had to reschedule leg venous US studies to be done locally. Reviewed images with her -- no significant superficial venous reflux to treat with venous ablation. From standpoint of ??-May Thurner physiology (given sx worse on left) imaging shows patent IVC and iliac veins, however, did not evaluate for presence of vein compression. She is amenable to have additional US images obtained at [facility] [place] lab on [facility]. Objective: BP 145/69 (BP Site: Right Arm, BP Position: Sitting, BP Cuff Size: Regular Adult) Pulse 97 Ht 154.9 cm (5' 1 ) Wt 46.4 kg (102 lb 4.8 oz) SpO2 100% BMI 19.33 kg/m General: Alert and oriented, in no acute distress, pleasant mood. On supplemental O2 per NC. Skin: Healthy, intact, no ulcerations, no rashes. HEENT: Head normocephalic, extraocular muscles intact, sclera anicteric, nasal and oral mucosa moist and pink, neck supple, no JVD, no carotid bruit. Cardiovascular: Heart has a regular rate and rhythm without murmur. Respiratory: Lungs clear auscultation bilaterally. Gastrointestinal: Abdomen soft and nontender. No abdominal bruit or palpable mass. Musculoskeletal: No cyanosis or clubbing. Peripheral vascular: Dorsalis pedis and posterior tibial pulses 2+/2 bilaterally. Feet and toes warm pink and well perfused. Lower extremities: Bilateral feet L>R with purple color pooling in the toes and feet with dependency despite being fairly warm to the touch. Trace right ankle edema, mild 1-2+ pitting edema around the left ankle. Mild hemosiderin staining L>R lower leg and numerous small scattered superficial veins. Labs None Imaging Visceral venous US: [place] [address] Patient Name: MARCELA BREWER MR#: [id number] : 1950 Exam Date: 01/10/2024 Ordering Doctor: Non-Staff Physician PROCEDURE: VC ULTRASOUND IVC LMT COMPARISON: None. 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 FINDINGS: Proximal IVC: 1.36 cm, 29 cm/second Mid IVC: 1.25 cm, 17 cm/s Distal IVC: 0.91 cm, 13 cm/second Mid Left common iliac vein: 0.31 cm, 14 cm/s Distal left common iliac vein: 0.3 cm, 11.6 cm/second Portal vein: 30.1 cm/s External iliac vein: 18 cm/s Left proximal internal iliac vein: 7.2 mm, 14 cm/s Left distal internal iliac vein: 5.6 mm Other: Multiple hepatic cysts Dictated by: Maximino Carrillo MD on 01/11/2024 at 14:29 Approved by: Mxaimino Carrillo MD on 01/11/2024 at 14:38 Venous incompetency ultrasound: [place] [address] Patient Name: MARCELA BREWER MR#: [id number] : 1950 Exam Date: 01/10/2024 Ordering Doctor: Non-Staff Physician RADIOLOGY REPORT PROCEDURE: VC EXT VENOUS REFLUX ZAHIRA LMTD COMPARISON: VC EXT VENOUS REFLUX ZAHIRA LMTD, 04/21/2023. INDICATIONS: Pain due to varicose veins of bilateral legs I83.813 TECHNIQUE: Duplex imaging of the lower extremity to assess the deep and superficial venous system for the presence of deep or superficial venous incompetence and to document the location and severity of disease. The study includes evaluation of the great saphenous vein (GSV), anterior accessory saphenous vein (AASV) and small saphenous vein (SSV). Patient scanned in reverse Trendelenburg and standing. -->patient states that all images were taken in supine position. FINDINGS: RIGHT LOWER EXTREMITY: Saphenofemoral Junction Reflux: Yes 6.3mm 0.6 sec GSV: Diam (mm) Reflux/ Time (sec) Proximal Thigh 5.5 No Mid Thigh 2.3 No Distal Thigh 2.3 No Prox Calf 2.3 No Mid Calf N/A Saphenopopliteal Junction Reflux: 1.9mm No SSV: Proximal Calf 1.8 No Mid Calf 2.4 No AASV: Proximal Thigh 1.9 No Mid Thigh 1.7 No Distal Thigh Thrombi: No acute or chronic thrombus visualized Compressibility: Normal Flow: Normal Preforator: Dist/med calf 1.5mm with 0s reflux. Tech Note: Patent varicose vein prox/med calf 1.6mm with 0s reflux. 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 Tech Note: Patent varicose vein dist/med thigh 2.4mm with 0s reflux. CONCLUSION: 1. No abnormal or suspicious dilation or reflux within the superficial veins of the right and left lower extremity. 2. No appreciable deep vein thrombus. Dictated by: Luis Limon M.D. on 01/10/2024 at 15:51 Approved by: Luis Limon M.D. on 01/10/2024 at 15:53 Dictated By: Luis Limon M.D. Signed By: 01/10/24 1554 R GSV junction L GSV Example image of dilated lymphatics / edema seen in left lower leg Assessment: Marcela Brewer is a 73 year old female seen for follow up regarding leg discoloration. 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 Now improved. 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 __HTN __COPD, emphysema __Bronchiectasis __GERD __Raynaud's phenomenon in toes -- longstanding __Tobacco use Presents for assessment of leg swelling and discoloration. Discussed several different factors-- Likely some residual effects from prior decompensation when LVEF was 10%, although currently appears compensated. Evidence of chronic venous insufficiency with hemosiderin staining and some scattered veins. Given involvement of LLE >> RLE recommend screening for May Thurner physiology in addition to venous incompetency study to evaluate venous reflux. Additionally with evidence of acrocyanosis of the feet -- deeply purple which easily blanches back to normal color with light pressure or elevation. Seen for follow up. No change in symptoms. Reassured patient that arterial perfusion is normal, coloration is caused by venous pooling. Reviewed study and visceral venous US. plan: __Had visceral venous US done locally -- Hepatic cysts noted, recommend f/up with PCP. Iliac venous patency seen bilaterally; images not diagnostic from perspective of screening for May Thurner syndrome. She will obtain additional images at [facility] lab on [place] as she would like to rule out May Thurner physiology -- discussed that this is reasonable, although will not necessarily dictate need for an intervention. __Reflux study: no significant deep venous reflux or superficial venous reflux reported or seen on available images. Discussed no role for venous intervention. Recommend continued light compression socks 15-20mmHg. __Follow up: 1 year and additionally as needed. Yuki Car MD documented in this encounter [facility] 11-10-2023 History of Present illness Narrative Images from the original note were not included. [facility] Progress Note Patient - Marcela Brewer Age - 73 [facility] 1950 [id number] ASSESSMENT Chronic hypercapnic respiratory failure Chronic hypoxic respiratory failure -Home O2 dependent 2-3 L predominantly with exertion/ sleep 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 Intolerant of nebulized Tobramycin -PICC and IV Cefepime x 10 days Sep 2023 5. History of cardiomyopathy, improved. Follows at [facility] with last EF 50% (improved from 10-15%) Chronic use of systemic steroids History of Mycobacterium szulgai s/p treatment with ID Tobacco use GERD Physical deconditioning. Anxiety disorder. PLAN Low-dose screening CT scan expresses March 2024. Order in place Discussed again repeat PFT data. She would be willing to proceed. This is anticipated in 1-2 months after some additional recovery time Continue Breztri, aerosol solution. Continue vest therapy but requested increased to b.i.d. to help facilitate some mucus clearance in the evening Continue 3% hypertonic saline solution in the morning for pulmonary clearance Continue azithromycin 3 times weekly Will try to wean steroids. She will try 10 mg alternating with 5 mg every other day Continue Mucinex Ongoing daily walking program and daily exercise Reviewed hypercapnia. Patient would meet criteria for noninvasive positive pressure ventilation with sleep and p.r.n.. Reviewed benefit and indication. All questions answered. She would like some time to think about it Return to clinic in 3 months or earlier if needed SUBJECTIVE Mrs. Brewer presents for follow-up of her chronic respiratory failure, severe COPD, bronchiectasis, recurrent exacerbations. She continues to smoke and has difficulty with quitting despite multiple attempts. She is here after recent hospitalization. She had been ill since of July and failed outpatient therapy. Sputum was positive for Pseudomonas. She has allergy to fluoroquinolones and attempts were made for nebulized tobramycin which she did not tolerate and had worsening bronchospasm with. Decision was made for hospitalization where she underwent PICC line placement and ultimately was discharged home to complete course of cefepime therapy. She did feel markedly improved with decreased mucus production, increased energy, overall feeling of well-being. PICC line has been removed. She reports that she still having some daytime fatigue. She gets worn out easily. She states she feels the need to nap after getting up and getting ready and doing minimal activity around the house in the morning. Blood gases while inpatient revealed hypercapnia. This has not been seen on previous blood gases obtained. She is maintained on 10 mg prednisone daily. She has vest therapy which she uses once a day with hypertonic saline in the morning. She continues to bring up copious amounts of mucus in the morning and then very little throughout the rest of the day. She has still been occasionally waking up in the middle the night with some coughing and mucus production. VITALS BP 160/74 Pulse 97 Ht 154.9 cm (5' 1 ) Wt 47.7 kg (105 lb 3.2 oz) LMP (LMP Unknown) SpO2 95% Comment: Arrived on 2.5Lnc of O2 BMI 19.88 kg/m Exam General: Alert, oriented, no acute distress, nontoxic, thin, frail HEENT: Moist mucosal membranes, no oral lesions or oral thrush, trachea midline Chest: Diminished throughout without any crackles or wheezes. Increased AP diameter. CV: Regular rate regular rhythm Extremities: No edema, erythema, distal cyanosis, clubbing Integumentary: Warm and dry. No rash or lesion Neuro: No lateralizing deficits. No tremors Meds Medications Reviewed. Lab Results PFT Results Radiology XR CHEST 1 VW 09/23/23 REASON FOR EXAM: 73 years old Female with PICC line placement. TECHNIQUE: Single portable AP view of the chest. COMPARISON: Chest radiograph dated 09/23/2023. FINDINGS: Right-sided PICC line with tip terminating in the SVC. Unchanged cardiac silhouette and mediastinum. No pneumothorax or pleural effusion. Unchanged pleural parenchymal abnormality within the left upper lung. No new or enlarging focal airspace opacity. Hyperinflated lungs. IMPRESSION: * Adequately positioned PICC line. * No significant interval change. Dr. Laura Mac DO. [facility] Office: [phone] documented in this encounter [facility] 11-07-2023 Instructions Yuki Car MD - 11/07/2023 2:09 PM EST __schedule ultrasounds __knee high 20-30mmHg compression socks __acrocyanosis: purplish color that increases with dependency (legs hanging down), decreases with leg elevation and warming --------->follow up after ultrasounds to review and see if any next steps are needed documented in this encounter [facility] 11-07-2023 Note HNO ID: [id number] Author: YUKI CAR MD Service: ? Author Type: Physician Type: Progress Notes Filed: 11/14/2023 00:54 Note Text: [facility] [place] [facility] Department of Cardiovascular Medicine SECTION OF VASCULAR MEDICINE OUTPATIENT VISIT DATE 11/07/2023 OUTPATIENT VISIT TYPE CONSULTATION Consult regarding: leg swelling and discoloration Consult requested by: Alex Riggins My final recommendations will be communicated back to the requesting physician by way of the shared medical record or by letter. 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 Now improved. 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 __HTN __COPD, emphysema __Bronchiectasis __GERD __Raynaud's phenomenon in toes -- longstanding __Tobacco use L>R ankle edema present for about 2 years. Saw PCP about 2mo before the [facility], would swell mildly but respond to being on treadmill. Had asked PCP for support socks Rx. After the [facility] event the legs became more swollen. Right side hardly swells. Left leg is swollen all of the time -- goes down a little bit overnight, and if she does not get compression promptly in the morning it will become very swollen. Ruining her shoes from stretching heel area. Takes torsemide only if she gains more than 4lb. Is on the same bottle since 04/2023. At home has been 105-106lb. No personal hx of thrombosis. No prior vein ablations. No leg surgeries. Hysterectomy approx age 40yo, endometriosis. Had PVR 03/24/2023 IMPRESSION RIGHT SIDE Resting right ankle brachial index: 1.12 Normal ankle brachial index at rest in the right leg. Right ankle: Normal at rest. Right small vessel disease versus vasoconstriction. LEFT SIDE Resting left ankle brachial index: 1.07 Normal ankle brachial index at rest in the left leg. Left ankle: Normal at rest. Allergies: is allergic to pantoprazole, carbinoxamine-pseudoephedrine, cephalexin, metaxalone, metoclopramide, montelukast, sertraline, ciprofloxacin, erythromycin, and levofloxacin. Medications: sodium chloride (NEBUSAL) 3 % nebulizer solutionINHALE CONTENTS OF 1 VIAL VIA NEBULIZER EVERY DAYDisp: Rfl: kaeiiqabjs-nxenrahr-hjejjqjtxq (BREZTRI AEROSPHERE) 160-9-4.8 mcg/actuation HFA aerosol inhalerInhale 2 Puffs as instructed.Disp: Rfl: torsemide (DEMADEX) 10 mg tabletTake 1 tablet by mouth once daily as needed.Disp: 30 tabletRfl: 0 empagliflozin (JARDIANCE) 10 mg tabletTake 1 tablet by mouth once daily.Disp: 90 tabletRfl: 3 metoprolol succinate ER (TOPROL XL) 50 mg 24 hr tabletTake 1 tablet by mouth twice daily.Disp: 180 tabletRfl: 3 sacubitril-valsartan (ENTRESTO) 49-51 mg tabletTake 1 tablet by mouth twice daily.Disp: 180 tabletRfl: 3 acetaminophen (TYLENOL) 325 mg tabletTake 650 mg by mouth every 4 hours as needed.Disp: Rfl: albuterol HFA (PROVENTIL HFA, VENTOLIN HFA) 90 mcg/actuation inhaleronce daily as needed.Disp: Rfl: atorvastatin (LIPITOR) 10 mg tabletTake 10 mg by mouth once daily.Disp: Rfl: calcium carbonate-vitamin D3 1,000 mg-20 mcg (800 unit) tabTake 1 tablet by mouth once daily.Disp: Rfl: esomeprazole (NEXIUM) 40 mg capsuleTake 40 mg by mouth twice daily.Disp: Rfl: lamoTRIgine (LAMICTAL) 25 mg tabletTake 25 mg by mouth daily at bedtime.Disp: Rfl: levalbuterol (XOPENEX) 1.25 mg/3 mL nebulizer solutionfour times daily.Disp: Rfl: ipratropium (ATROVENT) 0.02 % nebulizer solutionUse 0.5 mg via nebulizer four times daily.Disp: Rfl: LORazepam (ATIVAN) 1 mg tabletTake 1 mg by mouth four times daily.Disp: Rfl: nitroglycerin (NITRO-BID) 2 % ointmentas needed. Raynaud'sDisp: Rfl: predniSONE (DELTASONE) 10 mg tabletTake 10 mg by mouth once daily.Disp: Rfl: roflumilast (DALIRESP) 500 mcg tabTake 500 mcg by mouth once daily.Disp: Rfl: Vitamin E, dl, acetate, (VITAMIN E) 400 unit capsuleTake 400 Units by mouth once daily.Disp: Rfl: (Patient not taking: Reported on 11/01/2023) Past medical history: has a past medical history of Bronchiectasis (HCC), Chronic obstructive pulmonary disease (COPD) (HCC), Combined systolic and diastolic heart failure (HCC), Emphysema lung (HCC), GERD (gastroesophageal reflux disease), Hypertension, and NICM (nonischemic cardiomyopathy) (HCC). Past surgical history: has a past surgical history that includes ablation (2013); hysterectomy hx; bx of breast; incisional (Bilateral); appendectomy; removal gallbladder; and surgical. Family history: family history includes Arthritis in her mother; Heart in her father; Heart Attack in her brother and father. Social history: reports that she has been smoking cigarettes. She has never (more content not included)... [facility] 11-07-2023 History of Present illness Narrative Images from the original note were not included. [facility] [place] [facility] Department of Cardiovascular Medicine SECTION OF VASCULAR MEDICINE OUTPATIENT VISIT DATE 11/07/2023 OUTPATIENT VISIT TYPE CONSULTATION Consult regarding: leg swelling and discoloration Consult requested by: Alex Riggins My final recommendations will be communicated back to the requesting physician by way of the shared medical record or by letter. 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 Now improved. 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 __HTN __COPD, emphysema __Bronchiectasis __GERD __Raynaud's phenomenon in toes -- longstanding __Tobacco use L>R ankle edema present for about 2 years. Saw PCP about 2mo before the [facility], would swell mildly but respond to being on treadmill. Had asked PCP for support socks Rx. After the [facility] event the legs became more swollen. Right side hardly swells. Left leg is swollen all of the time -- goes down a little bit overnight, and if she does not get compression promptly in the morning it will become very swollen. Ruining her shoes from stretching heel area. Takes torsemide only if she gains more than 4lb. Is on the same bottle since 04/2023. At home has been 105-106lb. No personal hx of thrombosis. No prior vein ablations. No leg surgeries. Hysterectomy approx age 40yo, endometriosis. Had PVR 03/24/2023 IMPRESSION RIGHT SIDE Resting right ankle brachial index: 1.12 Normal ankle brachial index at rest in the right leg. Right ankle: Normal at rest. Right small vessel disease versus vasoconstriction. LEFT SIDE Resting left ankle brachial index: 1.07 Normal ankle brachial index at rest in the left leg. Left ankle: Normal at rest. Allergies: is allergic to pantoprazole, carbinoxamine-pseudoephedrine, cephalexin, metaxalone, metoclopramide, montelukast, sertraline, ciprofloxacin, erythromycin, and levofloxacin. Medications: sodium chloride (NEBUSAL) 3 % nebulizer solution^INHALE CONTENTS OF 1 VIAL VIA NEBULIZER EVERY DAY^Disp: ^Rfl: qbcigwtfra-lvfwzwrp-gowpgwadbu (BREZTRI AEROSPHERE) 160-9-4.8 mcg/actuation HFA aerosol inhaler^Inhale 2 Puffs as instructed.^Disp: ^Rfl: torsemide (DEMADEX) 10 mg tablet^Take 1 tablet by mouth once daily as needed.^Disp: 30 tablet^Rfl: 0 empagliflozin (JARDIANCE) 10 mg tablet^Take 1 tablet by mouth once daily.^Disp: 90 tablet^Rfl: 3 metoprolol succinate ER (TOPROL XL) 50 mg 24 hr tablet^Take 1 tablet by mouth twice daily.^Disp: 180 tablet^Rfl: 3 sacubitril-valsartan (ENTRESTO) 49-51 mg tablet^Take 1 tablet by mouth twice daily.^Disp: 180 tablet^Rfl: 3 acetaminophen (TYLENOL) 325 mg tablet^Take 650 mg by mouth every 4 hours as needed.^Disp: ^Rfl: albuterol HFA (PROVENTIL HFA, VENTOLIN HFA) 90 mcg/actuation inhaler^once daily as needed.^Disp: ^Rfl: atorvastatin (LIPITOR) 10 mg tablet^Take 10 mg by mouth once daily.^Disp: ^Rfl: calcium carbonate-vitamin D3 1,000 mg-20 mcg (800 unit) tab^Take 1 tablet by mouth once daily.^Disp: ^Rfl: esomeprazole (NEXIUM) 40 mg capsule^Take 40 mg by mouth twice daily.^Disp: ^Rfl: lamoTRIgine (LAMICTAL) 25 mg tablet^Take 25 mg by mouth daily at bedtime.^Disp: ^Rfl: levalbuterol (XOPENEX) 1.25 mg/3 mL nebulizer solution^four times daily.^Disp: ^Rfl: ipratropium (ATROVENT) 0.02 % nebulizer solution^Use 0.5 mg via nebulizer four times daily.^Disp: ^Rfl: LORazepam (ATIVAN) 1 mg tablet^Take 1 mg by mouth four times daily.^Disp: ^Rfl: nitroglycerin (NITRO-BID) 2 % ointment^as needed. Raynaud's^Disp: ^Rfl: predniSONE (DELTASONE) 10 mg tablet^Take 10 mg by mouth once daily.^Disp: ^Rfl: roflumilast (DALIRESP) 500 mcg tab^Take 500 mcg by mouth once daily.^Disp: ^Rfl: Vitamin E, dl, acetate, (VITAMIN E) 400 unit capsule^Take 400 Units by mouth once daily.^Disp: ^Rfl: (Patient not taking: Reported on 11/01/2023) Past medical history: has a past medical history of Bronchiectasis (HCC), Chronic obstructive pulmonary disease (COPD) (HCC), Combined systolic and diastolic heart failure (HCC), Emphysema lung (HCC), GERD (gastroesophageal reflux disease), Hypertension, and NICM (nonischemic cardiomyopathy) (HCC). Past surgical history: has a past surgical history that includes ablation (2013); hysterectomy hx; bx of breast; incisional (Bilateral); appendectomy; removal gallbladder; and surgical. Family history: family history includes Arthritis in her mother; Heart in her father; Heart Attack in her brother and father. Social history: reports that she has been smoking cigarettes. She has never used smokeless tobacco. She reports that she does not currently use alcohol. She reports that she does not use drugs. REVIEW OF SYSTEMS: per HPI Physical exam: BP 145/72 (BP Site: Right Arm, BP Position: Sitting, BP Cuff Size: Regular Adult) Pulse 104 Wt 49 kg (108 lb) SpO2 95% BMI 20.41 kg/m General: Alert and oriented, in no acute distress, pleasant mood. Skin: Healthy, intact, no ulcerations, no rashes. HEENT: Head normocephalic, extraocular muscles intact, sclera anicteric, nasal and oral mucosa moist and pink, neck supple, no JVD, no carotid bruit. Cardiovascular: Heart has a regular rate and rhythm without murmur. Respiratory: Lungs clear auscultation bilaterally. Gastrointestinal: Abdomen soft and nontender. No abdominal bruit or palpable mass. Musculoskeletal: No cyanosis or clubbing. Peripheral vascular: Dorsalis pedis and posterior tibial pulses 2+/2 bilaterally. Feet and toes warm pink and well perfused. Lower extremities: Bilateral feet L>R with purple color pooling in the toes and feet with dependency despite being fairly warm to the touch. Trace right ankle edema, mild 1-2+ pitting edema around the left ankle. Mild hemosiderin staining L>R lower leg and small scattered superficial veins. Imaging 03/24/2023 [facility] Impression Marcela Brewer is a 73 year old female who presents as New Consult regarding leg discoloration. 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 Now improved. 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 __HTN __COPD, emphysema __Bronchiectasis __GERD __Raynaud's phenomenon in toes -- longstanding __Tobacco use Presents for assessment of leg swelling and discoloration. Discussed several different factors-- Likely some residual effects from prior decompensation when LVEF was 10%, although currently appears compensated. Evidence of chronic venous insufficiency with hemosiderin staining and some scattered veins. Given involvement of LLE >> RLE recommend screening for May Thurner physiology in addition to venous incompetency study to evaluate venous reflux. Additionally with evidence of acrocyanosis of the feet -- deeply purple which easily blanches back to normal color with light pressure or elevation. Recommendations: __schedule ultrasounds -- visceral venous US and venous incompetency US __knee high 20-30mmHg compression socks __Leg cyanosis with dependency is consistent with acrocyanosis. This is purplish to inky black discoloration of the toes, feet, and lower legs when placed in a dependent position (ie legs hanging down or prolonged sitting/standing in place). This can be idiopathic or caused by neuropathy, particularly small fiber neuropathy. Acrocyanosis is seen with autonomic dysfunction of venules or veno-vascular denervation, in either instance leading to venous pooling of de-oxygenated and carboxyhemaglobin rich blood causing the skin to appear purple. Discoloration resolves with removal of gravitational dependence -> repositioning of the legs into supine position or elevation of legs. __Follow up: after ultrasounds to review and see if any next steps are needed Yuki Car MD documented in this encounter [facility] 11-01-2023 Note HNO ID: [id number] Author: ALEX RIGGINS MD Service: ? Author Type: Physician Type: Progress Notes Filed: 12/07/2023 16:36 Note Text: [facility] [place] [facility] SECTION OF HEART FAILURE and CARDIAC TRANSPLANT MEDICINE OUTPATIENT VISIT DATE December 07, 2023 OUTPATIENT VISIT TYPE Established Patient PRIMARY CARE PHYSICIAN: Luiz Tadeo MD ([facility]) [address] [place] [address] CHIEF COMPLAINT: Follow up NURSING INTAKE (Patient?s concerns and/or recent hospitalizations/ER visits): HF Nursing Assessment: Interim Hospitalizations and/or ER visits: 09/22/23 Chest Pain: no Skipping or irregular heartbeats: no Shortness of breath at rest: no Shortness of breath with activity: yes Cough: yes Waking up in the middle of the night gasping for air: no Lightheadedness or dizziness: no Feeling like you are going to pass out: no Actually passing out: no Poor energy level: yes Unintentional weight gain: no Unintentional weight loss: no Swelling in your legs,feet, abdomen: yes Filling up quickly when you eat: yes HISTORY OF PRESENT ILLNESS: 73 year old woman with severe COPD, 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 I advised increasing to high dose sacubitril/valsartan but this was precluded by recrudescent hyperkalemia and she has remained on a backbone of moderate dose ARNI, empagliflozin 10mg, metoprolol succinate 50mg BID, and spironolactone 25mg daily. Overall she has done very well to this with interval recovery in LVEF by both CMR and TTE. She has done overall well since our last visit - remains off of spironolactone due to intermittent hyponatremia but tolerating metoprolol and Entresto mid-dose. Still smoking. No other acute changes. 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) Emphysema lung (HCC) GERD (gastroesophageal reflux disease) Hypertension NICM (nonischemic cardiomyopathy) ([facility]) PAST SURGICAL HISTORY Procedure Laterality Date ABLATION 2013 APPENDECTOMY BX OF BREAST; INCISIONAL Bilateral HYSTERECTOMY HX REMOVAL GALLBLADDER SURGICAL throat nodes removed SOCIAL HISTORY Social History Tobacco Use Smoking status: Every Day Types: Cigarettes Smokeless tobacco: Never Tobacco comments: 10-12 cigaretts daily Substance Use Topics Alcohol use: Not Currently Drug use: Never FAMILY HISTORY Problem Relation Age of Onset Arthritis Mother Heart Attack Father killed 2/3 of heart Heart Father Heart Attack Brother CABG x 4 ALLERGIES: ALLERGIES Allergen Reactions Pantoprazole Other: See Comments Carbinoxamine-Pseud* Other: See Comments Cephalexin Hives Rash. Trouble breathing. Can tolerate 250mg's but not 500mg's Spoke with RN confirmed with pt: Went to ER; pt told not to take keflex again Metaxalone Other: See Comments Metoclopramide Intolerance Montelukast Other: See Comments Sertraline Swelling Ciprofloxacin Rash Erythromycin GI Upset Levofloxacin Rash, Swelling Tongue swelling CURRENT MEDICATIONS: ufulcqnrgr-hepnbrcv-nlrtlninni (BREZTRI AEROSPHERE) 160-9-4.8 mcg/actuation HFA aerosol inhalerInhale 2 Puffs as instructed.Disp: Rfl: empagliflozin (JARDIANCE) 10 mg tabletTake 1 tablet by mouth once daily.Disp: 90 tabletRfl: 3 metoprolol succinate ER (TOPROL XL) 50 mg 24 hr tabletTake 1 tablet by mouth twice daily.Disp: 180 tabletRfl: 3 sacubitril-valsartan (ENTRESTO) 49-51 mg tabletTake 1 tablet by mouth twice daily.Disp: 180 tabletRfl: 3 acetaminophen (TYLENOL) 325 mg tabletTake 650 mg by mouth every 4 hours as needed.Disp: Rfl: albuterol HFA (PROVENTIL HFA, VENTOLIN HFA) 90 mcg/actuation inhaleronce daily as needed.Disp: Rfl: atorvastatin (LIPITOR) 10 mg tabletTake 10 mg by mouth once daily.Disp: Rfl: calcium carbonate-vitamin D3 1,000 mg-20 mcg (800 unit) tabTake 1 tablet by mouth once daily.Disp: Rfl: esomeprazole (NEXIUM) 40 mg capsuleTake 40 mg by mouth twice daily.Disp: Rfl: lamoTRIgine (LAMICTAL) 25 mg tabletTake 25 mg by mouth daily at bedtime.Disp: Rfl: levalbuterol (XOPENEX) 1.25 mg/3 mL nebulizer solutionfour times daily.Disp: Rfl: ipratropium (ATROVENT) 0.02 % nebulizer solutionUse 0.5 mg via nebulizer four times daily.Disp: Rfl: LORazepam (ATIVAN) 1 mg tabletTake 1 mg by mouth four times daily.Disp: Rfl: (more content not included)... [facility] 11-01-2023 History of Present illness Narrative Images from the original note were not included. [facility] [place] [facility] SECTION OF HEART FAILURE and CARDIAC TRANSPLANT MEDICINE OUTPATIENT VISIT DATE December 07, 2023 OUTPATIENT VISIT TYPE Established Patient PRIMARY CARE PHYSICIAN: Luiz Tadeo MD ([facility]) [address] [place] [address] CHIEF COMPLAINT: Follow up NURSING INTAKE (Patient s concerns and/or recent hospitalizations/ER visits): HF Nursing Assessment: Interim Hospitalizations and/or ER visits: 09/22/23 Chest Pain: no Skipping or irregular heartbeats: no Shortness of breath at rest: no Shortness of breath with activity: yes Cough: yes Waking up in the middle of the night gasping for air: no Lightheadedness or dizziness: no Feeling like you are going to pass out: no Actually passing out: no Poor energy level: yes Unintentional weight gain: no Unintentional weight loss: no Swelling in your legs,feet, abdomen: yes Filling up quickly when you eat: yes HISTORY OF PRESENT ILLNESS: 73 year old woman with severe COPD, home O2 dependent with EVIN bulla, prior Mycobacterium szulgai infection, tobacco dependence, reportedly RVOT PVC's s/p ablation 2013, [facility] with LVEF in low 40's per years, who established care with me in October of 2021 as a second opinion for a further reduction in LVEF to 10-15%, now with LV recovery to an EF > 50% on GDMT. 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 I advised increasing to high dose sacubitril/valsartan but this was precluded by recrudescent hyperkalemia and she has remained on a backbone of moderate dose ARNI, empagliflozin 10mg, metoprolol succinate 50mg BID, and spironolactone 25mg daily. Overall she has done very well to this with interval recovery in LVEF by both CMR and TTE. She has done overall well since our last visit - remains off of spironolactone due to intermittent hyponatremia but tolerating metoprolol and Entresto mid-dose. Still smoking. No other acute changes. 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) Emphysema lung (HCC) GERD (gastroesophageal reflux disease) Hypertension NICM (nonischemic cardiomyopathy) (HCC) PAST SURGICAL HISTORY Procedure Laterality Date ABLATION 2013 APPENDECTOMY BX OF BREAST; INCISIONAL Bilateral HYSTERECTOMY HX REMOVAL GALLBLADDER SURGICAL throat nodes removed SOCIAL HISTORY Social History Tobacco Use Smoking status: Every Day Types: Cigarettes Smokeless tobacco: Never Tobacco comments: - cigaretts daily Substance Use Topics Alcohol use: Not Currently Drug use: Never FAMILY HISTORY Problem Relation Age of Onset Arthritis Mother Heart Attack Father killed 2/3 of heart Heart Father Heart Attack Brother CABG x 4 ALLERGIES: ALLERGIES Allergen Reactions Pantoprazole Other: See Comments Carbinoxamine-Pseud* Other: See Comments Cephalexin Hives Rash. Trouble breathing. Can tolerate 250mg's but not 500mg's Spoke with RN confirmed with pt: Went to ER; pt told not to take keflex again Metaxalone Other: See Comments Metoclopramide Intolerance Montelukast Other: See Comments Sertraline Swelling Ciprofloxacin Rash Erythromycin GI Upset Levofloxacin Rash, Swelling Tongue swelling CURRENT MEDICATIONS: qhdbzslchb-aoqopyhz-skowcfhagj (BREZTRI AEROSPHERE) 160-9-4.8 mcg/actuation HFA aerosol inhaler^Inhale 2 Puffs as instructed.^Disp: ^Rfl: empagliflozin (JARDIANCE) 10 mg tablet^Take 1 tablet by mouth once daily.^Disp: 90 tablet^Rfl: 3 metoprolol succinate ER (TOPROL XL) 50 mg 24 hr tablet^Take 1 tablet by mouth twice daily.^Disp: 180 tablet^Rfl: 3 sacubitril-valsartan (ENTRESTO) 49-51 mg tablet^Take 1 tablet by mouth twice daily.^Disp: 180 tablet^Rfl: 3 acetaminophen (TYLENOL) 325 mg tablet^Take 650 mg by mouth every 4 hours as needed.^Disp: ^Rfl: albuterol HFA (PROVENTIL HFA, VENTOLIN HFA) 90 mcg/actuation inhaler^once daily as needed.^Disp: ^Rfl: atorvastatin (LIPITOR) 10 mg tablet^Take 10 mg by mouth once daily.^Disp: ^Rfl: calcium carbonate-vitamin D3 1,000 mg-20 mcg (800 unit) tab^Take 1 tablet by mouth once daily.^Disp: ^Rfl: esomeprazole (NEXIUM) 40 mg capsule^Take 40 mg by mouth twice daily.^Disp: ^Rfl: lamoTRIgine (LAMICTAL) 25 mg tablet^Take 25 mg by mouth daily at bedtime.^Disp: ^Rfl: levalbuterol (XOPENEX) 1.25 mg/3 mL nebulizer solution^four times daily.^Disp: ^Rfl: ipratropium (ATROVENT) 0.02 % nebulizer solution^Use 0.5 mg via nebulizer four times daily.^Disp: ^Rfl: LORazepam (ATIVAN) 1 mg tablet^Take 1 mg by mouth four times daily.^Disp: ^Rfl: predniSONE (DELTASONE) 10 mg tablet^Take 10 mg by mouth once daily.^Disp: ^Rfl: roflumilast (DALIRESP) 500 mcg tab^Take 500 mcg by mouth once daily.^Disp: ^Rfl: sodium chloride (NEBUSAL) 3 % nebulizer solution^INHALE CONTENTS OF 1 VIAL VIA NEBULIZER EVERY DAY^Disp: ^Rfl: torsemide (DEMADEX) 10 mg tablet^Take 1 tablet by mouth once daily as needed.^Disp: 30 tablet^Rfl: 0 nitroglycerin (NITRO-BID) 2 % ointment^as needed. Raynaud's^Disp: ^Rfl: Vitamin E, dl, acetate, (VITAMIN E) 400 unit capsule^Take 400 Units by mouth once daily.^Disp: ^Rfl: (Patient not taking: Reported on 11/01/2023) REVIEW OF SYSTEMS: ROS HEART FAILURE PATIENT ENTERED DATA: 05/03/2022 10/19/2022 03/24/2023 KCCQ-12 Scores Physical Limitation Score 75 (Class II Heart Failure ) 50 (Class III Heart Failure ) 58.33 (Class III Heart Failure ) Symptom Frequency Score 58.33 (Class III Heart Failure ) 70.83 (Class II Heart Failure ) 41.67 (Class III Heart Failure ) Quality of Life Score 62.5 (Class II Heart Failure ) 50 (Class III Heart Failure) 62.5 (Class II Heart Failure ) Social Limitation Score 66.67 (Class II Heart Failure) 50 (Class III Heart Failure) Incomplete Overall Summary Score 65.63 (Class II Heart Failure ) 55.21 (Class III Heart Failure ) Incomplete 05/03/2022 10/19/2022 03/24/2023 PHQ-9 Score 1 0 2 05/03/2022 10/19/2022 03/24/2023 PROMIS Global Health - (T-Scores - the mean of general population = 50. Five points is a clinically meaningful difference.) Physical T-Score 54.1 47.7 50.8 Mental T-Score 53.3 53.3 53.3 PHYSICAL EXAMINATION: BP 147/83 (BP Site: Right Arm, BP Position: Sitting, BP Cuff Size: Regular Adult) Pulse 115 Ht 154.9 cm (5' 1 ) Wt 49 kg (108 lb) SpO2 93% BMI 20.41 kg/m General: Well appearing, in no acute distress. Skin: No clubbing, no cyanosis. Eyes: Extra ocular movements intact Oropharynx: Teeth in good repair. Neck: No jugular venous distention, no carotid bruits, carotids have a normal upstroke, no palpable thyromegaly. Lungs: Clear to auscultation bilaterally, no wheezing or rhonchi. Heart: Regular rhythm, PMI not displaced, S1, S2 normal, no S3, no S4, no heaves, no rub and no murmur. Abdomen: Soft, nontender, bowel sounds normal, no palpable organomegaly, no bruits. Extremities: No peripheral edema . Grade 2/4 distal pulses bilaterally. Neuro: Oriented to person, place and time, alert, cooperative, gait coordinated. CARDIOVASCULAR MEDICINE TESTING: I have personally reviewed the Laboratory Testing. Last ECHO Result Conclusion ECHO Collected: 03/24/2023 2:27 PM (Final result) Impression: CONCLUSIONS: - Exam indication: Cardiomyopathy - Lot of ectopy. - The left ventricle is normal in size. There is no left ventricular hypertrophy. Left ventricular systolic function is normal. EF = 61 5% (2D biplane) - The right ventricle is normal in size. Right ventricular systolic function is normal. - Normal LA/RA size. - Mild (1+) mitral regurgitation. - Exam was compared with the prior echocardiographic exam performed on 01/26/22 report comparison only. * * * Final * * * IMPRESSION: NYHA Functional Class: II Stage: C heart failure Target weight: ~107 lbs 73 year old woman with severe COPD, home O2 dependent with EVIN bulla, prior Mycobacterium szulgai infection, tobacco dependency, reportedly RVOT PVC's s/p ablation 2013, [facility] with LVEF in low 40's per years, who established care with me in October of 2021 as a a second opinion for a further reduction in LVEF to 10-15%. With intensification of her GDMT and lifestyle modification (reduction in tobacco use and reduction in use of a pseudoephedrine-containing allergy medication) she has made significant strides towards left ventricular recovery with an LVEF now > 50% on both echocardiography and CMR. Continue current GDMT regimen. Heart Failure specific medications (list current, note updates or changes, note prior intolerance): BB: Metoprolol succinate 50mg BID ACEI/ARB/ARNI: Sacubitril/valsartan 49/51mg BID MRA: Previously on spironolactone 12.5mg daily, intolerant due to hyponatremia SGLT2: Empagliflozin 10mg Diuretic: Torsemide 10mg PRN Digoxin: NA Vasodilators: NA Anti-arrhythmics: NA Ivabradine: NA Other anti-HTN: NA PLAN AND RECOMMENDATIONS: Chronic systolic HF / NICM - Sacubitril/valsartan 49/51mg BID - Continue empagliflozin 10mg - Hold MRA given hyponatremia - Continue torsemide 10mg PRN - Continue to work towards tobacco cessation (some progress made) - Continue to avoid pseudoephedrine containing products HLD - Atorvastatin 10mg - LDL 76 05/2023 I personally interviewed, confirmed and edited the above information as obtained by others I personally spent 31 minutes in total time involved in the management and care of this patient. We discussed natural history of disease, current treatment options, and future potential treatment options. We discussed diet, exercise, other non-medical management as above. Alex Riggins MD [facility] Section Of Heart Failure and Cardiac Transplant Medicine Heart [facility]ascular [place] [facility] Desk [id number] [place] [address] documented in this encounter [facility] 10-13-2023 History of Present illness Narrative Patient called nurse line and stated patient no longer able to receive D[facility] from [facility]. Requested script to be sent to [facility]. Patient last seen 08-18-23 and is to RTC in 3 months. Patient agreeable [facility] 09-21-2023 Miscellaneous Notes Patient called in with difficulty tolerating Tobramycin nebulized treatments. Has had 6 doses and severe sore/ raw throat, coughing jags with difficulty breathing following treatments and little relief with bronchodilator after. Looking for alternatives. Patient with worsening respiratory symptoms with dyspnea, fatigue and increased cough with copious thick mucus. Many pseudomonas aeruginosa on sputum culture done in August. Worsening symptoms throughout the month with no improvement to Doxycycline. Significant allergy to Levaquin and Cipro so unable to use Called and discussed with patient. Does not seem that she can continue to tolerate nebulized tobramycin. Pseudomonas seems culprit organism. Will need admission for IV antibiotic treatment, pulmonary toilet given failed outpatient treatment. She is agreeable. Requested that she go to [facility] or [facility] for admission. documented in this encounter [facility] 09-21-2023 Telephone encounter Note Patient called in with difficulty tolerating Tobramycin nebulized treatments. Has had 6 doses and severe sore/ raw throat, coughing jags with difficulty breathing following treatments and little relief with bronchodilator after. Looking for alternatives. Patient with worsening respiratory symptoms with dyspnea, fatigue and increased cough with copious thick mucus. Many pseudomonas aeruginosa on sputum culture done in August. Worsening symptoms throughout the month with no improvement to Doxycycline. Significant allergy to Levaquin and Cipro so unable to use Called and discussed with patient. Does not seem that she can continue to tolerate nebulized tobramycin. Pseudomonas seems culprit organism. Will need admission for IV antibiotic treatment, pulmonary toilet given failed outpatient treatment. She is agreeable. Requested that she go to [facility] or [facility] for admission. [facility] 07-21-2023 Miscellaneous Notes [employer] re-enrollment form completed for lj. Faxed to . Fernanda Gastelum RN July 21, 2023 8:44 AM documented in this encounter [facility] 07-18-2023 Miscellaneous Notes Completed and faxed patient and provider portion of [employer] application. Samia Rodrigues RN July 18, 2023 4:26 PM Images from the original note were not included. documented in this encounter [facility] 05-26-2023 Miscellaneous Notes Outside labs collected on 05/24/23 scanned into [employer] for review. documented in this encounter [facility] 04-26-2023 Miscellaneous Notes Call from patient requesting refill. Requested Prescriptions Pending Prescriptions Disp Refills torsemide (DEMADEX) 10 mg tablet 30 tablet 0 Sig: Take 1 tablet by mouth once daily as needed. Patient last seen 03/29/23 Lorne Meraz documented in this encounter [facility] 03-29-2023 Note HNO ID: [id number] Author: Alex Riggins MD Service: ? Author Type: Physician Type: Progress Notes Filed: 03/29/2023 12:11 PM Note Text: Heart and Vascular [place] [facility] SECTION OF HEART FAILURE and CARDIAC TRANSPLANT MEDICINE OUTPATIENT VISIT DATE March 29, 2023 OUTPATIENT VISIT TYPE Established Patient PRIMARY CARE PHYSICIAN: Luiz Tadeo MD ([facility]) [address] [place] [address] CHIEF COMPLAINT: Routine follow-up NURSING INTAKE (Patient?s concerns and/or recent hospitalizations/ER visits): HF Nursing Assessment: Interim Hospitalizations and/or ER visits:no Chest Pain: no Skipping or irregular heartbeats: yes Shortness of breath at rest: no Shortness of breath with activity: yes Cough: no Waking up in the middle of the night gasping for air: no pt sleep with oxygen Lightheadedness or dizziness: no Feeling like you are going to pass out: no Actually passing out: no Poor energy level: no Unintentional weight gain: no Unintentional weight loss: no Swelling in your legs,feet, abdomen: feet Filling up quickly when you eat: yes HISTORY OF PRESENT ILLNESS: 73 year old woman with severe COPD, 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 I advised increasing to high dose sacubitril/valsartan but this was precluded by recrudescent hyperkalemia and she has remained on a backbone of moderate dose ARNI, empagliflozin 10mg, metoprolol succinate 50mg BID, and spironolactone 25mg daily. Overall she has done very well to this with interval recovery in LVEF by both CMR and TTE. She has done overall well since our last visit - remains off of spironolactone due to intermittent hyponatremia but tolerating metoprolol and Entresto mid-dose. Still smoking. NT pro BNP up slightly on labs earlier this month in the context of prior fluid retention episode in setting of a course of prednisone prescribed by pulmonology for antecedent COPD exacerbation. 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) Emphysema lung (HCC) GERD (gastroesophageal reflux disease) Hypertension NICM (nonischemic cardiomyopathy) (HCC) PAST SURGICAL HISTORY Procedure Laterality Date ABLATION 2013 APPENDECTOMY BX OF BREAST; INCISIONAL Bilateral HYSTERECTOMY HX REMOVAL GALLBLADDER SURGICAL throat nodes removed SOCIAL HISTORY Social History Tobacco Use Smoking status: Every Day Types: Cigarettes Smokeless tobacco: Never Tobacco comments: - cigaretts daily Substance Use Topics Alcohol use: Not Currently Drug use: Never FAMILY HISTORY Problem Relation Age of Onset Arthritis Mother Heart Attack Father killed 2/3 of heart Heart Father Heart Attack Brother CABG x 4 ALLERGIES: ALLERGIES Allergen Reactions Pantoprazole Other: See Comments Carbinoxamine-Pseud* Other: See Comments Cephalexin Hives Rash. Trouble breathing. Can tolerate 250mg's but not 500mg's Spoke with RN confirmed with pt: Went to ER; pt told not to take keflex again Metaxalone Other: See Comments Metoclopramide Intolerance Montelukast Other: See Comments Sertraline Swelling Ciprofloxacin Rash Erythromycin GI Upset Levofloxacin Rash, Swelling Tongue swelling CURRENT MEDICATIONS: sacubitril-valsartan (ENTRESTO) 49-51 mg tabletTake 1 tablet by mouth twice daily.Disp: 180 tabletRfl: 3 metoprolol succinate ER (TOPROL XL) 50 mg 24 hr tabletTake 1 tablet by mouth twice daily.Disp: 180 tabletRfl: 3 acetaminophen (TYLENOL) 325 mg tabletTake 650 mg by mouth every 4 hours as needed.Disp: Rfl: atorvastatin (LIPITOR) 10 mg tabletTake 10 mg by mouth once daily.Disp: Rfl: calcium carbonate-vitamin D3 1,000 mg-20 mcg (800 unit) tabTake 1 tablet by mouth once daily.Disp: Rfl: empagliflozin (JARDIANCE) 10 mg tabletTake 10 mg by mouth once daily.Disp: Rfl: esomeprazole (NEXIUM) 40 mg capsuleTake 40 mg by mouth twice daily.Disp: Rfl: lamoTRIgine (LAMICTAL) 25 mg tabletTake 25 mg by mouth daily at bedtime.Disp: Rfl: LORazepam (ATIVAN) 1 mg tabletTake 1 mg by mouth four times daily.Disp: Rfl: nitroglycerin (NITRO-BID) 2 % ointmentas needed. Raynaud'sDisp: Rfl: predniSONE (DELTASONE) 10 mg tabletTake 10 mg by mouth once daily.Disp: Rfl: roflumilast (DALIRESP) 500 mcg tabTake 500 mcg by mouth once daily.Disp: Rfl: (more content not included)... [facility] 03-07-2023 Miscellaneous Notes Images from the original note were not included. MD Bernardino Mcknight [facility] 20 minutes ago (3:41 PM) AH OK to reduce the Lasix to just as needed Socks should be removed at night and put back on in the morning Attempted to call the patient, not able to reach at this time, did leave voicemail with above information as well as nurse line for call back. Andreia Britt RN March 07, 2023 4:[address] Riggins, patient called and said her weight is back down to 107. She is good with the compression socks but has not taken them off. She wants to know If she should still continue her medication the same as she has been taking. Thank you, bernardino documented in this encounter [facility] 02-07-2023 Miscellaneous Notes February 07, 2023 Name: Marcela Brewer Patient Contact Number: [phone] (home) [phone] (cell) Date of last office visit: 12/30/2022 Reason For Call: Other Issue: Pt said she does not think she can make her 2 testing appts on 02/17 as her has a procedure on 02/14 and he needs to drive her to her appts, she is wanting to see if she can have both tests performed at [facility] phone# [phone] Cates is OK w with this change tests will need to be cancelled and the orders for the US and Echo sent to [facility]. Physician: Alex Riggins MD Patient was informed that non-urgent calls may be returned within the next three business days. Yes Gordy Ibanez documented in this encounter [facility] 12-30-2022 Instructions Marti Larsen PA-C - 12/30/2022 2:52 PM EDT - for now stay off of the spironolactone - do not take the sodium tablets - blood work today - consult to endocrinology - follow-up with Dr. Riggins on 03/29 documented in this encounter [facility] 12-30-2022 History of Present illness Narrative Images from the original note were not included. Heart and Vascular [place] [facility] SECTION OF HEART FAILURE and CARDIAC TRANSPLANT MEDICINE OUTPATIENT VISIT DATE December 30, 2022 OUTPATIENT VISIT TYPE Established Patient PRIMARY CARE PHYSICIAN: Luiz Tadeo MD ([facility]) [address] [place] [address] CHIEF COMPLAINT: low blood pressure HISTORY OF PRESENT ILLNESS: 72 year old woman with severe COPD, home O2 dependent with EVIN bulla, prior Mycobacterium szulgai infection, tobacco dependence, reportedly RVOT PVC's s/p ablation 2013, [facility], EF 10-15% with recovery to > 50%. She was last seen by Dr. Riggins on 10/19/22: - Sacubitril/valsartan 49/51mg BID (dose increase has been precluded by hyperkalemia - recheck labs today) - Continue spironolactone 12.5mg - Continue empagliflozin 10mg - Continue furosemide 40mg PRN - Continue to work towards tobacco cessation (some progress made) - Continue to avoid pseudoephedrine containing products - PYP, AL amyloid labs all reassuring in January-February 2022 Patient called our office on 12/29/22: Called patient and discussed for the past 5 days since her PCP had adjusted her medications she has been feeling fatigued, more SOB, can not get on her treadmill. Had been feeling well and has not been checking her BP but since not feeling well she checked her BP yesterday and today and is has been 79/38, 78/36. Weight is overall stable and there is no evidence of edema. Pt is staying hydrated. PCP started sodium tablets and increased her spironolactone to a full tablet daily. She started the sodium tablets x 2 on 12/18 and increased the spironolactone to 25 mg on 12/20. Her ankles started to swell so her sodium tablets were decreased from two to one. Her sodium was 134 on 12/22. For the past five days, she is very tired. Taking two to three naps a day. Not able to walk on the treadmill. On 12/28, BP 79/38. 12/29 102/59 before meds and 78/36 after meds. She did not take the sodium tablet or spironolactone today and had a BP of 107/52. She is able to breathe much better since stopping the sodium and spironolactone. No edema since decreasing the sodium tablet. 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) Emphysema lung (HCC) GERD (gastroesophageal reflux disease) Hypertension NICM (nonischemic cardiomyopathy) (HCC) PAST SURGICAL HISTORY Procedure Laterality Date ABLATION 2013 APPENDECTOMY BX OF BREAST; INCISIONAL Bilateral HYSTERECTOMY HX REMOVAL GALLBLADDER SURGICAL throat nodes removed SOCIAL HISTORY Social History Tobacco Use Smoking status: Every Day Types: Cigarettes Smokeless tobacco: Never Tobacco comments: - cigaretts daily Substance Use Topics Alcohol use: Not Currently Drug use: Never FAMILY HISTORY Problem Relation Age of Onset Arthritis Mother Heart Attack Father killed 2/3 of heart Heart Father Heart Attack Brother CABG x 4 ALLERGIES: ALLERGIES Allergen Reactions Pantoprazole Other: See Comments Carbinoxamine-Pseud* Other: See Comments Cephalexin Hives Rash. Trouble breathing. Can tolerate 250mg's but not 500mg's Spoke with RN confirmed with pt: Went to ER; pt told not to take keflex again Metaxalone Other: See Comments Metoclopramide Intolerance Montelukast Other: See Comments Sertraline Swelling Ciprofloxacin Rash Erythromycin GI Upset Levofloxacin Rash, Swelling Tongue swelling CURRENT MEDICATIONS: spironolactone (ALDACTONE) 25 mg tablet^Take 1 tablet by mouth once daily. ON HOLD^Disp: 90 tablet^Rfl: 3 sodium chloride 1,000 mg TbSO^Take 1 tablet by mouth once daily. ON HOLD^Disp: ^Rfl: sacubitril-valsartan (ENTRESTO) 49-51 mg tablet^Take 1 tablet by mouth twice daily.^Disp: 180 tablet^Rfl: 3 levalbuterol (XOPENEX) 1.25 mg/3 mL nebulizer solution^four times daily.^Disp: ^Rfl: ipratropium (ATROVENT) 0.02 % nebulizer solution^Use 0.5 mg via nebulizer four times daily.^Disp: ^Rfl: LORazepam (ATIVAN) 1 mg tablet^Take 1 mg by mouth four times daily.^Disp: ^Rfl: nitroglycerin (NITRO-BID) 2 % ointment^as needed. Raynaud's^Disp: ^Rfl: roflumilast (DALIRESP) 500 mcg tab^Take 500 mcg by mouth once daily.^Disp: ^Rfl: metoprolol succinate ER (TOPROL XL) 50 mg 24 hr tablet^Take 1 tablet by mouth twice daily.^Disp: 180 tablet^Rfl: 3 acetaminophen (TYLENOL) 325 mg tablet^Take 650 mg by mouth every 4 hours as needed.^Disp: ^Rfl: albuterol HFA (PROVENTIL HFA, VENTOLIN HFA) 90 mcg/actuation inhaler^once daily as needed.^Disp: ^Rfl: atorvastatin (LIPITOR) 10 mg tablet^Take 10 mg by mouth once daily.^Disp: ^Rfl: calcium carbonate-vitamin D3 1,000 mg-20 mcg (800 unit) tab^Take 1 tablet by mouth once daily.^Disp: ^Rfl: empagliflozin (JARDIANCE) 10 mg tablet^Take 10 mg by mouth once daily.^Disp: ^Rfl: esomeprazole (NEXIUM) 40 mg capsule^Take 40 mg by mouth twice daily.^Disp: ^Rfl: fluticasone-salmeterol (ADVAIR) 500-50 mcg/dose dsdv^Inhale 1 Puff as instructed twice daily.^Disp: ^Rfl: lamoTRIgine (LAMICTAL) 25 mg tablet^Take 25 mg by mouth daily at bedtime.^Disp: ^Rfl: predniSONE (DELTASONE) 10 mg tablet^Take 10 mg by mouth once daily.^Disp: ^Rfl: Vitamin E, dl, acetate, (VITAMIN E) 400 unit capsule^Take 400 Units by mouth once daily.^Disp: ^Rfl: REVIEW OF SYSTEMS: CONSTITUTION: Negative for: Weight loss or gain, Fever. Chills, Night sweats HEENT: Negative for: Hearing loss, Nosebleeds, Mouth sores, Trouble swallowing, Dry mouth RESPIRATORY: Positive for: Difficulty breathing Negative for: Cough GASTROINTESTINAL: Negative for: Melena, Diarrhea, Nausea, Abdominal distension, Early satiety MUSCULOSKELETAL: Negative for: Arthralgias, Myalgias NEUROLOGICAL: Negative for: Headaches, Dizziness SKIN: Negative for: Rash EYES: Negative for: Vision disturbance CARDIOVASCULAR: Positive for: Arrhythmia Negative for: Chest pain, Leg swelling and Pre-syncope GENITOURINARY: Negative for: Difficulty urinatiing PATIENT ENTERED DATA: KCCQ-12 Scores 10/28/2021 05/03/2022 10/19/2022 Physical Limitation Score 41.67 (Class III Heart Failure ) 75 (Class II Heart Failure ) 50 (Class III Heart Failure ) Symptom Frequency Score 41.67 (Class III Heart Failure ) 58.33 (Class III Heart Failure ) 70.83 (Class II Heart Failure ) Quality of Life Score 0 (Class IIIb / IV Heart Failure ) 62.5 (Class II Heart Failure ) 50 (Class III Heart Failure) Social Limitation Score 25 (Class III Heart Failure) 66.67 (Class II Heart Failure) 50 (Class III Heart Failure) Overall Summary Score 27.09 (Class III Heart Failure ) 65.63 (Class II Heart Failure ) 55.21 (Class III Heart Failure ) PHQ-9 10/28/2021 05/03/2022 10/19/2022 Score 9 1 0 PROMIS Global Health - (T-Scores - the mean of general population = 50. Five points is a clinically meaningful difference.) 10/28/2021 05/03/2022 10/19/2022 Physical T-Score 47.7 54.1 47.7 Mental T-Score 50.8 53.3 53.3 PHYSICAL EXAMINATION: BP 126/68 Pulse 105 Ht 157.5 cm (5' 2 ) Wt 47.2 kg (104 lb) SpO2 94% BMI 19.02 kg/m Last 6 Encounter Wt Readings: Date: Wt: 12/30/2022 47.2 kg (104 lb) 10/19/2022 49 kg (108 lb 1.6 oz) 05/04/2022 47.2 kg (104 lb) 01/26/2022 48.1 kg (106 lb) 01/26/2022 49.1 kg (108 lb 4.8 oz) 11/02/2021 48.7 kg (107 lb 6.4 oz) General appearance: Alert, cooperative, pleasant, in no acute distress, thin Head: Normocephalic, atraumatic Eyes: conjunctiva/corneas normal, PERRL Neck: supple and no JVD Heart: regular rate and rhythm, without murmur Lungs: clear to auscultation, without rales or wheeze, good air exchange Abdomen:soft, nondistended, nontender, no hepatosplenomegaly or masses Ext: no edema in LE bilaterally CARDIOVASCULAR MEDICINE TESTING: I have personally reviewed the Laboratory Testing. Last ECHO Result Conclusion ECHO Collected: 01/26/2022 3:53 PM (Final result) Impression: CONCLUSIONS: - Exam indication: Evaluation of known heart failure to guide therapy - The left ventricle is normal in size. Left ventricular systolic function is normal. EF = 56 5% (2D biplane) - The right ventricle is normal in size. Right ventricular systolic function is normal. - The patient has not had a prior CC echocardiographic exam for comparison. * * * Final * * * Last MRI Result Conclusion MRI CARDIAC VELOCITY FLOW MAP Exam End: 01/26/2022 2:35 PM (Final result) Impression: IMPRESSION: 1. There is abnormal gadolinium kinetics with poor myocardial nulling. The myocardium is nulled before the blood pool. Delayed-enhancement imaging reveals subendocardial enhancement along the septum from base to apex. In addition, there is also suggestion of faint subendocardial enhancement in the remainder of the myocardial briceno, most prominent at the mid cavity level and along the interatrial septum. Constellation of imaging findings favor an infiltrative process and amyloidosis is a significant consideration, though other typical morphologic findings are not noted. 2. Normal biventricular size and function. 3. Mild mitral regurgitation (regurgitant fraction = 19% by quantification). Mild aortic regurgitation (regurgitant fraction = 10% by quantification) 4. Chronic volume loss with crowding of bronchi and/or bronchiectasis suggestive of atelectasis or scarring in the left upper lobe. An underlying infectious/inflammatory lung pathology cannot be excluded. Suggest comparison with any prior cross-sectional imaging studies if available and/or correlation with a dedicated CT chest. Special Services Director: ALEXANDREA Transcribe Date/Time: Jan 26 2022 2:45P Dictated by : NANCY GILMORE MD This examination was interpreted and the report reviewed and electronically signed by: YUE KAYE MD on Jan 26 2022 5:18PM EST IMPRESSION: NYHA Functional Class: II Stage: C heart failure NICM / LVEF 56% - Warm and dry on exam. Blood pressure much more robust than her home blood pressures (taken two times in the office). She states that her sodium increased to 134 on 12/22 when she was on one sodium tablet and spironolactone 25 mg. She has felt poorly since with low blood pressures, extreme fatigue and shortness of breath. Since she has stopped both of these meds, she has felt better with more energy. She should remain off of the shawn and sodium and get labs today. Refer to endocrinology for evaluation of hyponatremia and possible SIADH. Heart Failure specific medications (list current, note updates or changes, note prior intolerance): BB: metoprolol succinate 50 mg bid ACEI/ARB/ARNI: Entresto 49-51 mg bid MRA: hold spironolactone SGLT2: Jardiance 10 mg daily Diuretic: - Digoxin: - Vasodilators: - Anti-arrhythmics: - Ivabradine: - Other anti-HTN: - Severe COPD - prior mycobacterium szulgai infection - EVIN bulla - home oxygen PVC's - s/p ablation 2013 Hyponatremia - as above PLAN AND RECOMMENDATIONS: - for now stay off of the spironolactone - do not take the sodium tablets - blood work today - consult to endocrinology - follow-up with Dr. Riggins on 03/29 I personally interviewed, confirmed and edited the above information as obtained by others I personally spent 45 minutes in total time involved in the management and care of this patient. We discussed natural history of disease, current treatment options, and future potential treatment options. We discussed diet, exercise, other non-medical management as above. Marti Larsen PA-C [facility] Section Of Heart Failure and Cardiac Transplant Medicine Heart and [place]ascular [place] [facility] Desk J3-[address] [place] [address] documented in this encounter [facility] 12-29-2022 Miscellaneous Notes Spoke with Dr. Riggins who has asked for the patient to come tomorrow 12/30/2022 at 2PM for a f/u appointment and to have labs drawn before at desk J1-4. Called the patient and confirmed she can come tomorrow with her . Bernardino Tanner to schedule appointment. Fernanda Gastelum RN December 29, 2022 5:07 PM Can we get her added on for Marti or Ghada tomorrow with labs - needs to be seen Called patient and discussed for the past 5 days since her PCP had adjusted her medications she has been feeling fatigued, more SOB, can not get on her treadmill. Had been feeling well and has not been checking her BP but since not feeling well she checked her BP yesterday and today and is has been 79/38, 78/36. Weight is overall stable and there is no evidence of edema. Pt is staying hydrated. PCP started sodium tablets and increased her spironolactone to a full tablet daily. Pt is asking if the whole spironolactone should be changed. Fernanda Gastelum RN December 29, 2022 3:53 PM Her PCP told her to call re: her BP. Yesterday it was 79/38, today it is 78/36. She is SOB and tired. Please call her at [phone]. Thank you, Bernardino documented in this encounter [facility] 12-02-2022 Miscellaneous Notes Call from patient requesting refill. Requested Prescriptions Pending Prescriptions Disp Refills sacubitril-valsartan (ENTRESTO) 49-51 mg tablet 180 tablet 3 Sig: Take 1 tablet by mouth twice daily. Patient last seen 10/19/22 Gordy Ibanez documented in this encounter [facility] 12-02-2022 Miscellaneous Notes Pt called wanting to see if there is anyway she can have her upcoming PVR LEG ZAHIRA VAS test done locally. I mentioned to her she has the echo on the same day, and she said she is fine to come up for that, but shes on O2 and says she does not want to have to be here for that long.. documented in this encounter [facility] 10-29-2022 Miscellaneous Notes Lab results received. DOS: 10/28/22. Results available for review through Care Everywhere. Thank you Ольга documented in this encounter [facility] 10-19-2022 History of Present illness Narrative Images from the original note were not included. Heart and Vascular [place] [facility] SECTION OF HEART FAILURE and CARDIAC TRANSPLANT MEDICINE OUTPATIENT VISIT DATE October 19, 2022 OUTPATIENT VISIT TYPE Established Patient PRIMARY CARE PHYSICIAN: Luiz Tadeo MD ([facility]) [address] [place] [address] CHIEF COMPLAINT: Routine follow-up NURSING INTAKE (Patient s concerns and/or recent hospitalizations/ER visits): HF Nursing Assessment: Interim Hospitalizations and/or ER visits: ER visit strain muscle Chest Pain: no Skipping or irregular heartbeats: no Shortness of breath at rest: no Shortness of breath with activity: yes Cough: yes Waking up in the middle of the night gasping for air: no Lightheadedness or dizziness: no Feeling like you are going to pass out: no Actually passing out: no Poor energy level: no Unintentional weight gain: yes, up 4 lbs since last visit Unintentional weight loss: no Swelling in your legs,feet, abdomen: no Filling up quickly when you eat: no HISTORY OF PRESENT ILLNESS: 72 year old woman with severe COPD, 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 I advised increasing to high dose sacubitril/valsartan but this was precluded by recrudescent hyperkalemia and she has remained on a backbone of moderate dose ARNI, empagliflozin 10mg, metoprolol succinate 50mg BID, and spironolactone 25mg daily. Overall she has done very well to this with interval recovery in LVEF by both CMR and TTE. She has done really well since our last visit with a gradual increase in exercise tolerance (on treadmill frequently). No orthopnea, no PND, no edema. Adherent to GDMT without significant side effects aside from brief issue with hyponatremia which appears improved after MRA reduction - awaiting repeat. 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) Emphysema lung (HCC) GERD (gastroesophageal reflux disease) Hypertension NICM (nonischemic cardiomyopathy) (HCC) PAST SURGICAL HISTORY Procedure Laterality Date ABLATION 2013 APPENDECTOMY BX OF BREAST; INCISIONAL Bilateral HYSTERECTOMY HX REMOVAL GALLBLADDER SURGICAL throat nodes removed SOCIAL HISTORY Social History Tobacco Use Smoking status: Every Day Types: Cigarettes Smokeless tobacco: Never Tobacco comments: 10-12 cigaretts daily Substance Use Topics Alcohol use: Not Currently Drug use: Never FAMILY HISTORY Problem Relation Age of Onset Arthritis Mother Heart Attack Father killed 2/3 of heart Heart Father Heart Attack Brother CABG x 4 ALLERGIES: ALLERGIES Allergen Reactions Pantoprazole Other: See Comments Carbinoxamine-Pseud* Other: See Comments Cephalexin Hives Rash. Trouble breathing. Can tolerate 250mg's but not 500mg's Spoke with RN confirmed with pt: Went to ER; pt told not to take keflex again Metaxalone Other: See Comments Metoclopramide Intolerance Montelukast Other: See Comments Sertraline Swelling Ciprofloxacin Rash Erythromycin GI Upset Levofloxacin Rash, Swelling Tongue swelling CURRENT MEDICATIONS: sacubitril-valsartan (ENTRESTO) 49-51 mg tablet^Take 1 tablet by mouth twice daily.^Disp: 180 tablet^Rfl: 3 spironolactone (ALDACTONE) 25 mg tablet^Take 1 tablet by mouth once daily.^Disp: 90 tablet^Rfl: 3 (Patient taking differently: Take 12.5 mg by mouth once daily.) metoprolol succinate ER (TOPROL XL) 50 mg 24 hr tablet^Take 1 tablet by mouth twice daily.^Disp: 180 tablet^Rfl: 3 acetaminophen (TYLENOL) 325 mg tablet^Take 650 mg by mouth every 4 hours as needed.^Disp: ^Rfl: albuterol HFA (PROVENTIL HFA, VENTOLIN HFA) 90 mcg/actuation inhaler^once daily as needed.^Disp: ^Rfl: atorvastatin (LIPITOR) 10 mg tablet^Take 10 mg by mouth once daily.^Disp: ^Rfl: calcium carbonate-vitamin D3 1,000 mg-20 mcg (800 unit) tab^Take 1 tablet by mouth once daily.^Disp: ^Rfl: empagliflozin (JARDIANCE) 10 mg tablet^Take 10 mg by mouth once daily.^Disp: ^Rfl: esomeprazole (NEXIUM) 40 mg capsule^Take 40 mg by mouth twice daily.^Disp: ^Rfl: fluticasone-salmeterol (ADVAIR) 500-50 mcg/dose dsdv^Inhale 1 Puff as instructed twice daily.^Disp: ^Rfl: furosemide (LASIX) 40 mg tablet^Take 40 mg by mouth as needed.^Disp: ^Rfl: lamoTRIgine (LAMICTAL) 25 mg tablet^Take 25 mg by mouth daily at bedtime.^Disp: ^Rfl: levalbuterol (XOPENEX) 1.25 mg/3 mL nebulizer solution^four times daily.^Disp: ^Rfl: ipratropium (ATROVENT) 0.02 % nebulizer solution^Use 0.5 mg via nebulizer four times daily.^Disp: ^Rfl: LORazepam (ATIVAN) 1 mg tablet^Take 1 mg by mouth four times daily.^Disp: ^Rfl: nitroglycerin (NITRO-BID) 2 % ointment^as needed. Raynaud's^Disp: ^Rfl: potassium chloride (K-TAB) 10 mEq tablet^as needed. With lasix^Disp: ^Rfl: predniSONE (DELTASONE) 10 mg tablet^Take 10 mg by mouth once daily.^Disp: ^Rfl: roflumilast (DALIRESP) 500 mcg tab^Take 500 mcg by mouth once daily.^Disp: ^Rfl: Vitamin E, dl, acetate, (VITAMIN E) 400 unit capsule^Take 400 Units by mouth once daily.^Disp: ^Rfl: REVIEW OF SYSTEMS: CONSTITUTION: Negative for: Fever, Night sweats and Recent weight change HEENT: Negative for: Hearing loss RESPIRATORY: Negative for: Cough and Difficulty breathing GASTROINTESTINAL: Negative for: Melena, Nausea, Diarrhea, Abdominal distention and Early satiety MUSCULOSKELETAL: Positive for: Arthralgias Negative for: Myalgias NEUROLOGICAL: Negative for: Headaches and Dizziness SKIN: Negative for: Rash EYES: Negative for: Visual disturbance CARDIOVASCULAR: Negative for: Chest pain, Leg swelling, Arrhythmia and Pre-syncope GENITOURINARY: Negative for: Difficulty urinating PATIENT ENTERED DATA: KCCQ-12 Scores 10/28/2021 05/03/2022 10/19/2022 Physical Limitation Score 41.67 (Class III Heart Failure ) 75 (Class II Heart Failure ) 50 (Class III Heart Failure ) Symptom Frequency Score 41.67 (Class III Heart Failure ) 58.33 (Class III Heart Failure ) 70.83 (Class II Heart Failure ) Quality of Life Score 0 (Class IIIb / IV Heart Failure ) 62.5 (Class II Heart Failure ) 50 (Class III Heart Failure) Social Limitation Score 25 (Class III Heart Failure) 66.67 (Class II Heart Failure) 50 (Class III Heart Failure) Overall Summary Score 27.09 (Class III Heart Failure ) 65.63 (Class II Heart Failure ) 55.21 (Class III Heart Failure ) PHQ-9 10/28/2021 05/03/2022 10/19/2022 Score 9 1 0 PROMIS Global Health - (T-Scores - the mean of general population = 50. Five points is a clinically meaningful difference.) 10/28/2021 05/03/2022 10/19/2022 Physical T-Score 47.7 54.1 47.7 Mental T-Score 50.8 53.3 53.3 PHYSICAL EXAMINATION: BP 121/62 (BP Site: Left Arm) Pulse 98 Ht 156.2 cm (5' 1.5 ) Wt 49 kg (108 lb 1.6 oz) SpO2 98% BMI 20.09 kg/m General: Well appearing, in no acute distress. Skin: No clubbing, no cyanosis. Eyes: Extra ocular movements intact Oropharynx: Teeth in good repair. Neck: No jugular venous distention, no carotid bruits, carotids have a normal upstroke, no palpable thyromegaly. Lungs: Clear to auscultation bilaterally, no wheezing or rhonchi. Heart: Regular rhythm, PMI not displaced, S1, S2 normal, no S3, no S4, no heaves, no rub and no murmur. Abdomen: Soft, nontender, bowel sounds normal, no palpable organomegaly, no bruits. Extremities: No peripheral edema . Grade 2/4 distal pulses bilaterally. Neuro: Oriented to person, place and time, alert, cooperative, gait coordinated. CARDIOVASCULAR MEDICINE TESTING: There were no tests performed for review. Last ECHO Result Conclusion ECHO Collected: 01/26/2022 3:53 PM (Final result) Impression: CONCLUSIONS: - Exam indication: Evaluation of known heart failure to guide therapy - The left ventricle is normal in size. Left ventricular systolic function is normal. EF = 56 5% (2D biplane) - The right ventricle is normal in size. Right ventricular systolic function is normal. - The patient has not had a prior CC echocardiographic exam for comparison. * * * Final * * * Last MRI Result Conclusion MRI CARDIAC VELOCITY FLOW MAP Exam End: 01/26/2022 2:35 PM (Final result) Impression: IMPRESSION: 1. There is abnormal gadolinium kinetics with poor myocardial nulling. The myocardium is nulled before the blood pool. Delayed-enhancement imaging reveals subendocardial enhancement along the septum from base to apex. In addition, there is also suggestion of faint subendocardial enhancement in the remainder of the myocardial briceno, most prominent at the mid cavity level and along the interatrial septum. Constellation of imaging findings favor an infiltrative process and amyloidosis is a significant consideration, though other typical morphologic findings are not noted. 2. Normal biventricular size and function. 3. Mild mitral regurgitation (regurgitant fraction = 19% by quantification). Mild aortic regurgitation (regurgitant fraction = 10% by quantification) 4. Chronic volume loss with crowding of bronchi and/or bronchiectasis suggestive of atelectasis or scarring in the left upper lobe. An underlying infectious/inflammatory lung pathology cannot be excluded. Suggest comparison with any prior cross-sectional imaging studies if available and/or correlation with a dedicated CT chest. 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 With intensification of her GDMT and lifestyle modification (reduction in tobacco use and reduction in use of a pseudoephedrine-containing allergy medication) she has made significant strides towards left ventricular recovery with an LVEF now > 50% on both echocardiography and CMR. Overall recovering very well and tolerating four pillar GDMT. Will repeat labs to monitor prior hyperkalemia / hyponatremia but clinically faring excellent with increase in activity. Heart Failure specific medications (list current, note updates or changes, note prior intolerance): BB: Metoprolol succinate 50mg BID ACEI/ARB/ARNI: Sacubitril/valsartan 49/51mg BID MRA: Spironolactone 12.5mg SGLT2: Empagliflozin 10mg Diuretic: Furosemide 40mg daily Digoxin: NA Vasodilators: NA Anti-arrhythmics: NA Ivabradine: NA Other anti-HTN: NA PLAN AND RECOMMENDATIONS: Chronic systolic HF / NICM - Sacubitril/valsartan 49/51mg BID (dose increase has been precluded by hyperkalemia - recheck labs today) - Continue spironolactone 12.5mg - Continue empagliflozin 10mg - Continue furosemide 40mg PRN - Continue to work towards tobacco cessation (some progress made) - Continue to avoid pseudoephedrine containing products - PYP, [place] amyloid labs all reassuring in January-February 2022 I personally interviewed, confirmed and edited the above information as obtained by others I personally spent 40 minutes in total time involved in the management and care of this patient. We discussed natural history of disease, current treatment options, and future potential treatment options. We discussed diet, exercise, other non-medical management as above. Alex Riggins MD [facility] Section Of Heart Failure and Cardiac Transplant Medicine Heart and Vascular [place] [facility] Desk [id number] [place] [address] documented in this encounter [facility] 07-09-2022 Miscellaneous Notes Pt called stating that she has to reapply for her Entresto. She said that she filled out her portion of the application and needs the prescriber portion filled out and sent. documented in this encounter [facility] 06-28-2022 Miscellaneous Notes Call from pharmacy requesting refill. Requested Prescriptions Pending Prescriptions Disp Refills sacubitril-valsartan (ENTRESTO) 49-51 mg tablet 180 tablet 3 Sig: Take 1 tablet by mouth twice daily. Patient last seen 05/04/22 Ольга Hernandez documented in this encounter [facility] 06-14-2022 Miscellaneous Notes Prescriber portion completed and faxed 06/09/2022. Jaqui Child RN June 14, 2022 1:56 PM documented in this encounter [facility] 05-20-2022 Miscellaneous Notes Lab order faxed as requested by pt to: [facility] @ [phone] Ольга documented in this encounter [facility] 05-04-2022 Instructions Alex Riggins MD - 05/04/2022 12:25 PM EDT - Overall I think you look great! I think we have a little room to control your blood pressure more closely but otherwise I think things are going very well. Towards this end, I'd like to increase your heart failure therapy; if your potassium and creatinine are OK, I'd like to consider increasing either your spironolactone or your Entresto, otherwise we can talk about switching you from the metoprolol to a similar medication which has a stronger blood pressure effect, called Coreg. - I'd like to see you back here in around 6 months, but am happy to see you sooner if you run into any issues documented in this encounter [facility] 05-04-2022 History of Present illness Narrative Images from the original note were not included. Heart and Vascular [place] [facility] SECTION OF HEART FAILURE and CARDIAC TRANSPLANT MEDICINE OUTPATIENT VISIT DATE May 04, 2022 OUTPATIENT VISIT TYPE Established Patient PRIMARY CARE PHYSICIAN: Luiz Tadeo MD ([facility]) [address] [place] [address] CHIEF COMPLAINT: Routine follow-up NURSING INTAKE (Patient s concerns and/or recent hospitalizations/ER visits): HF Nursing Assessment: Interim Hospitalizations and/or ER visits: no Chest Pain: no Skipping or irregular heartbeats: no Shortness of breath at rest: no Shortness of breath with activity: yes Cough: yes Waking up in the middle of the night gasping for air: no, but waking up coughing Lightheadedness or dizziness: no Feeling like you are going to pass out: no Actually passing out: no Poor energy level: no Unintentional weight gain: no Unintentional weight loss: no Swelling in your legs,feet, abdomen: no Filling up quickly when you eat: no HISTORY OF PRESENT ILLNESS: 71 year old woman with severe COPD, 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 I advised increasing to high dose sacubitril/valsartan but this was precluded by recrudescent hyperkalemia and she has remained on a backbone of moderate dose ARNI, empagliflozin 10mg, metoprolol succinate 50mg BID, and spironolactone 25mg daily. Overall she has done very well to this with interval recovery in LVEF by both CMR and TTE. Interval history notable for stable functional capacity, no exertional dyspnea beyond her chronic pulmonary baseline, no orthopnea, no PND, no significant lower extremity edema.She remains adherent to therapy without lightheadedness, dizziness, palpitations. 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) Emphysema lung (HCC) GERD (gastroesophageal reflux disease) Hypertension NICM (nonischemic cardiomyopathy) (HCC) PAST SURGICAL HISTORY Procedure Laterality Date ABLATION 2013 APPENDECTOMY BX OF BREAST; INCISIONAL Bilateral HYSTERECTOMY HX REMOVAL GALLBLADDER SURGICAL throat nodes removed SOCIAL HISTORY Social History Tobacco Use Smoking status: Every Day Types: Cigarettes Smokeless tobacco: Never Tobacco comments: 10-12 cigaretts daily Substance Use Topics Alcohol use: Not Currently Drug use: Never FAMILY HISTORY Problem Relation Age of Onset Arthritis Mother Heart Attack Father killed 2/3 of heart Heart Father Heart Attack Brother CABG x 4 ALLERGIES: ALLERGIES Allergen Reactions Pantoprazole Other: See Comments Carbinoxamine-Pseud* Other: See Comments Cephalexin Hives Rash. Trouble breathing. Can tolerate 250mg's but not 500mg's Spoke with RN confirmed with pt: Went to ER; pt told not to take keflex again Metaxalone Other: See Comments Metoclopramide Intolerance Montelukast Other: See Comments Sertraline Swelling Ciprofloxacin Rash Erythromycin GI Upset Levofloxacin Rash, Swelling Tongue swelling CURRENT MEDICATIONS: metoprolol succinate ER (TOPROL XL) 50 mg 24 hr tablet^Take 1 tablet by mouth twice daily.^Disp: 180 tablet^Rfl: 3 sacubitril-valsartan (ENTRESTO) 49-51 mg tablet^Take 1 tablet by mouth twice daily.^Disp: 180 tablet^Rfl: 3 acetaminophen (TYLENOL) 325 mg tablet^Take 650 mg by mouth every 4 hours as needed.^Disp: ^Rfl: albuterol HFA (PROVENTIL HFA, VENTOLIN HFA) 90 mcg/actuation inhaler^once daily as needed.^Disp: ^Rfl: atorvastatin (LIPITOR) 10 mg tablet^Take 10 mg by mouth once daily.^Disp: ^Rfl: calcium carbonate-vitamin D3 1,000 mg-20 mcg (800 unit) tab^Take 1 tablet by mouth once daily.^Disp: ^Rfl: loratadine-pseudoephedrine ER (CLARITIN-D 24) 10-240 mg Tb24^Take 1 tablet by mouth as needed. ^Disp: ^Rfl: empagliflozin (JARDIANCE) 10 mg tablet^Take 10 mg by mouth once daily.^Disp: ^Rfl: esomeprazole (NEXIUM) 40 mg capsule^Take 40 mg by mouth once daily.^Disp: ^Rfl: fluticasone-salmeterol (ADVAIR) 500-50 mcg/dose dsdv^Inhale 1 Puff as instructed twice daily.^Disp: ^Rfl: furosemide (LASIX) 40 mg tablet^Take 40 mg by mouth as needed.^Disp: ^Rfl: lamoTRIgine (LAMICTAL) 25 mg tablet^Take 25 mg by mouth daily at bedtime.^Disp: ^Rfl: levalbuterol (XOPENEX) 1.25 mg/3 mL nebulizer solution^four times daily.^Disp: ^Rfl: ipratropium (ATROVENT) 0.02 % nebulizer solution^Use 0.5 mg via nebulizer four times daily.^Disp: ^Rfl: LORazepam (ATIVAN) 1 mg tablet^Take 1 mg by mouth four times daily.^Disp: ^Rfl: potassium chloride (K-TAB) 10 mEq tablet^as needed. With lasix^Disp: ^Rfl: predniSONE (DELTASONE) 10 mg tablet^Take 10 mg by mouth once daily.^Disp: ^Rfl: roflumilast (DALIRESP) 500 mcg tab^Take 500 mcg by mouth once daily.^Disp: ^Rfl: spironolactone (ALDACTONE) 25 mg tablet^Take 25 mg by mouth once daily.^Disp: ^Rfl: Vitamin E, dl, acetate, (VITAMIN E) 400 unit capsule^Take 400 Units by mouth once daily.^Disp: ^Rfl: nitroglycerin (NITRO-BID) 2 % ointment^as needed. Raynaud's^Disp: ^Rfl: REVIEW OF SYSTEMS: CONSTITUTION: Negative for: Fever, Night sweats and Recent weight change HEENT: Negative for: Hearing loss RESPIRATORY: Positive for: Cough and Difficulty breathing GASTROINTESTINAL: Negative for: Melena, Nausea, Diarrhea, Abdominal distention and Early satiety MUSCULOSKELETAL: Negative for: Arthralgias and Myalgias NEUROLOGICAL: Negative for: Headaches and Dizziness SKIN: Negative for: Rash EYES: Negative for: Visual disturbance CARDIOVASCULAR: Negative for: Chest pain, Leg swelling, Arrhythmia and Pre-syncope GENITOURINARY: Negative for: Difficulty urinating PATIENT ENTERED DATA: KCCQ-12 Scores 10/28/2021 05/03/2022 Physical Limitation Score 41.67 (Class III Heart Failure ) 75 (Class II Heart Failure ) Symptom Frequency Score 41.67 (Class III Heart Failure ) 58.33 (Class III Heart Failure ) Quality of Life Score 0 (Class IIIb / IV Heart Failure ) 62.5 (Class II Heart Failure ) Social Limitation Score 25 (Class III Heart Failure) 66.67 (Class II Heart Failure) Overall Summary Score 27.09 (Class III Heart Failure ) 65.63 (Class II Heart Failure ) PHQ-9 10/28/2021 05/03/2022 Score 9 1 PROMIS Global Health - (T-Scores - the mean of general population = 50. Five points is a clinically meaningful difference.) 10/28/2021 05/03/2022 Physical T-Score 47.7 54.1 Mental T-Score 50.8 53.3 PHYSICAL EXAMINATION: BP 130/61 (BP Site: Left Arm, BP Position: Sitting, BP Cuff Size: Regular Adult) Pulse 90 Ht 154.9 cm (5' 1 ) Wt 47.2 kg (104 lb) SpO2 100% BMI 19.65 kg/m General: Well appearing, in no acute distress. Skin: No clubbing, no cyanosis. Eyes: Extra ocular movements intact Oropharynx: Teeth in good repair. Neck: No jugular venous distention, no carotid bruits, carotids have a normal upstroke, no palpable thyromegaly. Lungs: Distant breath sounds Heart: Regular rhythm, PMI not displaced, S1, S2 normal, no S3, no S4, no heaves, no rub and no murmur. Abdomen: Soft, nontender, bowel sounds normal, no palpable organomegaly, no bruits. Extremities: No peripheral edema . Grade 2/4 distal pulses bilaterally. Neuro: Oriented to person, place and time, alert, cooperative, gait coordinated. CARDIOVASCULAR MEDICINE TESTING: I have personally reviewed the Echocardiogram and Cardiac MRI. Last ECHO Result Conclusion ECHO Collected: 01/26/2022 3:53 PM (Final result) Impression: CONCLUSIONS: - Exam indication: Evaluation of known heart failure to guide therapy - The left ventricle is normal in size. Left ventricular systolic function is normal. EF = 56 5% (2D biplane) - The right ventricle is normal in size. Right ventricular systolic function is normal. - The patient has not had a prior CC echocardiographic exam for comparison. * * * Final * * * Last MRI Result Conclusion MRI CARDIAC VELOCITY FLOW MAP Exam End: 01/26/2022 2:35 PM (Final result) Impression: IMPRESSION: 1. There is abnormal gadolinium kinetics with poor myocardial nulling. The myocardium is nulled before the blood pool. Delayed-enhancement imaging reveals subendocardial enhancement along the septum from base to apex. In addition, there is also suggestion of faint subendocardial enhancement in the remainder of the myocardial briceno, most prominent at the mid cavity level and along the interatrial septum. Constellation of imaging findings favor an infiltrative process and amyloidosis is a significant consideration, though other typical morphologic findings are not noted. 2. Normal biventricular size and function. 3. Mild mitral regurgitation (regurgitant fraction = 19% by quantification). Mild aortic regurgitation (regurgitant fraction = 10% by quantification) 4. Chronic volume loss with crowding of bronchi and/or bronchiectasis suggestive of atelectasis or scarring in the left upper lobe. An underlying infectious/inflammatory lung pathology cannot be excluded. Suggest comparison with any prior cross-sectional imaging studies if available and/or correlation with a dedicated CT chest. 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 With intensification of her GDMT and lifestyle modification (reduction in tobacco use and reduction in use of a pseudoephedrine-containing allergy medication) she has made significant strides towards left ventricular recovery with an LVEF now > 50% on both echocardiography and CMR. Overall recovering very well and tolerating four pillar GDMT. BP a little worse today - will recheck labs with eye towards increasing either her RAAS blockade or potentially transitioning from metoprolol to carvedilol to facilitate alpha blockade. Heart Failure specific medications (list current, note updates or changes, note prior intolerance): BB: Metoprolol succinate 50mg BID ACEI/ARB/ARNI: Sacubitril/valsartan 49/51mg BID MRA: Spironolactone 25mg SGLT2: Empagliflozin 10mg Diuretic: Furosemide 40mg daily Digoxin: NA Vasodilators: NA Anti-arrhythmics: NA Ivabradine: NA Other anti-HTN: NA PLAN AND RECOMMENDATIONS: Chronic systolic HF / NICM - Sacubitril/valsartan 49/51mg BID (dose increase precluded by hyperkalemia - recheck labs today given worse BP control) - Continue spironolactone 25mg - Continue empagliflozin 10mg - Continue furosemide 40mg PRN - Continue to work towards tobacco cessation (some progress made) - Continue to avoid pseudoephedrine containing products - PYP, AL amyloid labs all reassuring in January-February 2022 I personally interviewed, confirmed and edited the above information as obtained by others I personally spent 40 minutes in total time involved in the management and care of this patient. We discussed natural history of disease, current treatment options, and future potential treatment options. We discussed diet, exercise, other non-medical management as above. Alex Riggins MD [facility] Section Of Heart Failure and Cardiac Transplant Medicine Heart and Vascular [place] [facility] Desk J3-[address] [place] [address] documented in this encounter [facility] 02-04-2022 Miscellaneous Notes Received call from pt who reports her Predinisone was increased from 10 mg to 20 mg for 7 days and she has started taking new dose. Pt is scheduled for NM imaging and would like to know if increase in Medication would impact the test. Pt would like to know if she should keep carissa or what next steps she should take. Pt would like a call back or a Enviancet message with information. Thank you Ольга documented in this encounter [facility] 01-26-2022 Instructions Alex Riggins MD - 01/26/2022 5:10 PM EDT - It was great to see you in clinic today. Preliminary review of your cardiac MRI and echocardiography show significant signs of recovery. - Let's maintain your current medications for now and plan for a repeat visit in 4 months to assess your blood work and tolerance of these medications - If your LV function is persistently recovered and no arrhythmias have occurred on monitoring, I am OK stopping the Lifevest - Continue to work on smoking cessation - Continue to avoid the decongestant medications documented in this encounter [facility] 01-26-2022 History of Present illness Narrative Images from the original note were not included. Heart and Vascular [place] [facility] SECTION OF HEART FAILURE and CARDIAC TRANSPLANT MEDICINE OUTPATIENT VISIT DATE January 26, 2022 OUTPATIENT VISIT TYPE Established Patient PRIMARY CARE PHYSICIAN: Luiz Tadeo MD ([facility]) [address] [place] [address] CHIEF COMPLAINT: Routine follow-up NURSING INTAKE (Patient s concerns and/or recent hospitalizations/ER visits): HF Nursing Assessment: Interim Hospitalizations and/or ER visits:no Chest Pain: no Skipping or irregular heartbeats: no Shortness of breath at rest: no Shortness of breath with activity: yes Cough: yes, sinus drainage Waking up in the middle of the night gasping for air: no Lightheadedness or dizziness: no Feeling like you are going to pass out: no Actually passing out: no Poor energy level: no Unintentional weight gain: no Unintentional weight loss: no Swelling in your legs,feet, abdomen: no Filling up quickly when you eat: no HISTORY OF PRESENT ILLNESS: 71 year old woman with severe COPD, 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 I advised increasing to high dose sacubitril/valsartan but this was precluded by recrudescent hyperkalemia and she has remained on a backbone of moderate dose ARNI, empagliflozin 10mg, metoprolol succinate 50mg BID, and spironolactone 25mg daily. 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) Emphysema lung (HCC) GERD (gastroesophageal reflux disease) Hypertension NICM (nonischemic cardiomyopathy) (HCC) PAST SURGICAL HISTORY Procedure Laterality Date ABLATION 2013 APPENDECTOMY BX OF BREAST; INCISIONAL Bilateral HYSTERECTOMY HX REMOVAL GALLBLADDER SURGICAL throat nodes removed SOCIAL HISTORY Social History Tobacco Use Smoking status: Current Every Day Smoker Types: Cigarettes Smokeless tobacco: Never Used Tobacco comment: 06-16 cigaretts daily Substance Use Topics Alcohol use: Not Currently Drug use: Never FAMILY HISTORY Problem Relation Age of Onset Arthritis Mother Heart Attack Father killed 2/3 of heart Heart Father Heart Attack Brother CABG x 4 ALLERGIES: ALLERGIES Allergen Reactions Pantoprazole Other: See Comments Carbinoxamine-Pseud* Other: See Comments Cephalexin Hives Rash. Trouble breathing. Can tolerate 250mg's but not 500mg's Spoke with RN confirmed with pt: Went to ER; pt told not to take keflex again Metaxalone Other: See Comments Metoclopramide Intolerance Montelukast Other: See Comments Sertraline Swelling Ciprofloxacin Rash Erythromycin GI Upset Levofloxacin Rash, Swelling Tongue swelling CURRENT MEDICATIONS: sacubitril-valsartan (ENTRESTO) 49-51 mg tablet Take 1 tablet by mouth twice daily. acetaminophen (TYLENOL) 325 mg tablet Take 650 mg by mouth every 4 hours as needed. albuterol HFA (PROVENTIL HFA, VENTOLIN HFA) 90 mcg/actuation inhaler once daily as needed. atorvastatin (LIPITOR) 10 mg tablet Take 10 mg by mouth once daily. calcium carbonate-vitamin D3 1,000 mg-20 mcg (800 unit) tab Take 1 tablet by mouth once daily. loratadine-pseudoephedrine ER (CLARITIN-D 24) 10-240 mg Tb24 Take 1 tablet by mouth as needed. empagliflozin (JARDIANCE) 10 mg tablet Take 10 mg by mouth once daily. esomeprazole (NEXIUM) 40 mg capsule Take 40 mg by mouth once daily. fluticasone-salmeterol (ADVAIR) 500-50 mcg/dose dsdv Inhale 1 Puff as instructed twice daily. furosemide (LASIX) 40 mg tablet Take 40 mg by mouth as needed. lamoTRIgine (LAMICTAL) 25 mg tablet Take 25 mg by mouth daily at bedtime. levalbuterol (XOPENEX) 1.25 mg/3 mL nebulizer solution four times daily. ipratropium (ATROVENT) 0.02 % nebulizer solution Use 0.5 mg via nebulizer four times daily. LORazepam (ATIVAN) 1 mg tablet Take 1 mg by mouth four times daily. metoprolol succinate ER (TOPROL XL) 50 mg 24 hr tablet Take 50 mg by mouth twice daily. nitroglycerin (NITRO-BID) 2 % ointment as needed. Raynaud's potassium chloride (K-TAB) 10 mEq tablet as needed. With lasix predniSONE (DELTASONE) 10 mg tablet Take 10 mg by mouth once daily. roflumilast (DALIRESP) 500 mcg tab Take 500 mcg by mouth once daily. spironolactone (ALDACTONE) 25 mg tablet Take 25 mg by mouth once daily. Vitamin E, dl, acetate, (VITAMIN E) 400 unit capsule Take 400 Units by mouth once daily. REVIEW OF SYSTEMS: ROS HEART FAILURE PATIENT ENTERED DATA: KCCQ-12 Scores 10/28/2021 Physical Limitation Score 41.67 (Class III Heart Failure ) Symptom Frequency Score 41.67 (Class III Heart Failure ) Quality of Life Score 0 (Class IIIb / IV Heart Failure ) Social Limitation Score 25 (Class III Heart Failure) Overall Summary Score 27.09 (Class III Heart Failure ) PHQ-9 10/28/2021 Score 9 PROMIS Global Health - (T-Scores - the mean of general population = 50. Five points is a clinically meaningful difference.) 10/28/2021 Physical T-Score 47.7 Mental T-Score 50.8 PHYSICAL EXAMINATION: BP 116/57 (BP Site: Right Arm) Pulse 92 Ht 154.9 cm (5' 1 ) Wt 49.1 kg (108 lb 4.8 oz) SpO2 100% BMI 20.46 kg/m General: Well appearing, in no acute distress. Skin: No clubbing, no cyanosis. Eyes: Extra ocular movements intact Oropharynx: Teeth in good repair. Neck: No jugular venous distention, no carotid bruits, carotids have a normal upstroke, no palpable thyromegaly. Lungs: Clear to auscultation bilaterally, no wheezing or rhonchi. Heart: Regular rhythm, PMI not displaced, S1, S2 normal, no S3, no S4, no heaves, no rub and no murmur. Abdomen: Soft, nontender, bowel sounds normal, no palpable organomegaly, no bruits. Extremities: No peripheral edema . Grade 2/4 distal pulses bilaterally. Neuro: Oriented to person, place and time, alert, cooperative, gait coordinated. CARDIOVASCULAR MEDICINE TESTING: I have personally reviewed the Echocardiogram and CMR. 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 With intensification of her GDMT and lifestyle modification (reduction in tobacco use and reduction in use of a pseudoephedrine-containing allergy medication) she has made significant strides towards left ventricular recovery with an LVEF now > 50% on both echocardiography and CMR. CMR did raise findings concerning for amyloidosis - this does not clearly fit her clinical picture but reasonable to rule out with serologic testing and PYP. Heart Failure specific medications (list current, note updates or changes, note prior intolerance): BB: Metoprolol succinate 50mg BID ACEI/ARB/ARNI: Sacubitril/valsartan 49/51mg BID MRA: Spironolactone 25mg SGLT2: Empagliflozin 10mg Diuretic: Furosemide 40mg daily Digoxin: NA Vasodilators: NA Anti-arrhythmics: NA Ivabradine: NA Other anti-HTN: NA PLAN AND RECOMMENDATIONS: Chronic systolic HF / NICM - Sacubitril/valsartan 49/51mg BID (dose increase precluded by hyperkalemia) - Continue spironolactone 25mg - Continue empagliflozin 10mg - Continue furosemide 40mg - Tobacco cessation - Stop pseudoephedrine containing products - PYP, AL amyloid labs I personally interviewed, confirmed and edited the above information as obtained by others I personally spent 30 minutes in total time involved in the management and care of this patient. We discussed natural history of disease, current treatment options, and future potential treatment options. We discussed diet, exercise, other non-medical management as above. Alex Riggins MD [facility] Section Of Heart Failure and Cardiac Transplant Medicine Heart and Vascular [place] [facility] Desk [address] [place] [address] documented in this encounter [facility] 01-26-2022 History of Present illness Narrative Radiology Service Progress Note PATIENT NAME: Marcela Brewer DATE OF SERVICE: January 26, 2022 TIME: 2:36 PM PATIENT IDENTITY VERIFICATION COMPLETED USING TWO (2) IDENTIFIERS: Name and Date of confirmed by patient verbally and Name and Date of confirmed by identification band. FALL SCREENING: Has the patient had 2 falls in the last year or 1 fall with injury or currently using an Ambulatory Assistive Device (Walker, Cane, Wheelchair, Crutches, etc.)? Yes, Patient High Risk for Falls What interventions were put in place to prevent falls during this visit? Increased Observations by Caregivers PATIENT GENDER DATA: Female. status: : No status: NO. PATIENT RELEVANT IMPLANT DATA REVIEWED: Yes RADIOLOGY DEPARTMENT: MR; Exam(s) Completed: Cardiac: Cardiac PERIPHERAL IV DATA: Site assessment: Clean,Dry and Intact, Site disposition Discontinued SIGNED BY: RT Zo(R) January 26, 2022 2:36 PM Radiology Service Progress Note DATE OF SERVICE: January 26, 2022 TIME: 1:06 PM PATIENT WEIGHT: 106LBS PATIENT IDENTITY VERIFICATION COMPLETED USING TWO (2) STANDARD IDENTIFIERS: Name and Date of confirmed by patient verbally and Name and Date of confirmed by identification band. FALL SCREENING: Has the patient had 2 falls in the last year or 1 fall with injury or currently using an Ambulatory Assistive Device (Walker, Cane, Wheelchair, Crutches, etc.)? No PATIENT GENDER DATA: Female. status: : No status: NO. ALLERGIES: Reviewed and unchanged CONTRAST ALLERGY: No EXAM: MRI - CONTRAST TYPE: GROUP II IV SITE: Ambulatory: A peripheral IV was started in the Right forearm with a Angio cath: 20 gauge. and A Saline lock was inserted per protocol IV SITE APPEARANCE: Clean,Dry and Intact SIGNATURE: Monserrat Guzman RN PATIENT NAME: Marcela Brewer DATE: January 26, 2022 TIME: 1:06 PM Radiology Service Progress Note PATIENT NAME: Marcela Brewer DATE OF SERVICE: January 26, 2022 TIME: 1:21 PM PATIENT IDENTITY VERIFICATION COMPLETED USING TWO (2) STANDARD IDENTIFIERS: Name and Date of confirmed by patient verbally and Name and Date of confirmed by identification band. PATIENT GENDER DATA: Female. status: : No status: NO. PATIENT RELEVANT IMPLANT DATA REVIEWED: Yes ALLERGIES: Reviewed and unchanged MEDICATIONS REVIEWED: YES IV SITE: Ambulatory: A peripheral IV was started in the Right forearm with a Angio cath: 20 gauge. and A Saline lock was inserted per protocol PERIPHERAL IV ACCESS: Discontinued ANXIOLYSIS/ANESTHESIA: Xanax 0.5 mg SL PATIENT DISCHARGED TO: Home/Self Care SIGNED BY: Monserrat Guzman RN January 26, 2022 1:21 PM documented in this encounter [facility] 01-08-[address] Riggins spoke with the patient. Fernanda Gastelum RN January 08, 2022 4:03 PM Recieved a message on the nurse line from the patient at 9:26am. Patient is following up on her My Chart message from 12/31/2021. Patient stated that this upcoming Tuesday01/12/2022, she is scheduled to have an MRI locally and then the defibrillator on 01/20/2022. Patient is uncomfortable with having the defibrillator done locally. She has an upcoming MRI and f/u here at [facility] on 01/26/2022 and needs some guidance on how to proceed. Fernanda Gastelum RN January 08, 2022 11:14 AM documented in this encounter [facility] 11-16-2021 Miscellaneous Notes Pt called stating she had labs completed on 11/12/21 (results available in care everywhere). She would like to know if she should increase her Entresto based on these results. Pt can be reached at [phone] Lucy [phone] documented in this encounter [facility] Evaluation note Diagnosis Breast cancer screening by mammogram documented in this encounter [facility] Phone: evaluation note* Diagnosis Anxiety- Primary Anxiety state, unspecified [facility] Diagnosis Cardiomyopathy, unspecified type (HCC) Chronic systolic HF (heart failure) (HCC) Chronic systolic [facility] failure [facility] Chronic systolic HF (heart failure) (HCC)- Primary Chronic systolic heart failure Other cardiomyopathy (HCC) [facility] Diagnosis Chronic systolic HF (heart failure) (HCC) Chronic systolic heart failure Other cardiomyopathy (HCC) [facility] Diagnosis Chronic systolic heart failure (HCC)- Primary Chronic systolic heart failure [facility] Diagnosis Chronic systolic (congestive) heart failure (HCC)- Primary [facility] Diagnosis Chronic systolic HF (heart failure) (HCC)- Primary Chronic systolic heart failure Peripheral arterial disease (HCC) Peripheral vascular disease, unspecified [facility] Diagnosis Hypo-osmolality and hyponatremia- Primary Hyposmolality and/or hyponatremia Acute on chronic systolic (congestive) heart failure (HCC) [facility] Diagnosis Hypo-osmolality and hyponatremia- Primary Hyposmolality and/or hyponatremia Cardiomyopathy, nonischemic (HCC) Other primary cardiomyopathies Chronic systolic heart failure (HCC) Chronic systolic heart failure Ventricular tachycardia (HCC) Paroxysmal ventricular tachycardia Protein-calorie malnutrition, unspecified severity (HCC) [facility] Diagnosis Chronic systolic HF (heart failure) (HCC) Chronic systolic heart failure [facility] Diagnosis Peripheral arterial disease (HCC) Peripheral vascular disease, unspecified Chronic systolic HF (heart failure) (HCC) Chronic systolic heart failure [facility] Diagnosis [facility]chiectasis ([facility])- Primary Pseudomonas aeruginosa infection [facility] Diagnosis Chronic obstructive pulmonary disease, unspecified COPD type ([facility]) [facility] Diagnosis Chronic obstructive pulmonary disease, unspecified COPD type ([facility]) Bronchiectasis ([facility]) [facility] in [facility]* Diagnosis Bronchiectasis ([facility])- Primary Cigarette nicotine dependence, uncomplicated Chronic obstructive pulmonary disease, unspecified COPD type ([facility]) Chronic respiratory failure with hypoxia and hypercapnia ([facility]) Tobacco dependence Tobacco use disorder 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[facility] Diagnosis Venous hypertension- Primary Chronic venous hypertension without complications Acrocyanosis (HCC) Other peripheral vascular disease May-Thurner syndrome Compression of vein Discoloration of skin of multiple sites of lower extremity Dyschromia, unspecified NICM (nonischemic cardiomyopathy) ([facility]) Other primary cardiomyopathies [facility]* Diagnosis Chronic systolic HF (heart failure) (HCC)- Primary Chronic systolic heart failure Protein-calorie malnutrition, unspecified severity (HCC) Chronic respiratory failure with hypoxia (HCC) Chronic respiratory failure Ventricular tachycardia (HCC) Paroxysmal ventricular tachycardia [facility]* Diagnosis 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 Compression of vein Acrocyanosis (HCC) Other peripheral vascular disease Venous reflux Unspecified venous (peripheral) insufficiency [facility]* Diagnosis 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 Compression of vein [facility]* Diagnosis May-Thurner syndrome Compression of vein documented in this encounter [facility]InstructionsNot on filedocumented in this encounterPro[facility] SystemInstructionsNot on filedocumented in this encounterPro[facility] SystemInstructionsNot on filedocumented in this encounterPro[facility] InstructionsNot on filedocumented in this [facility] InstructionsNot on filedocumented in this encounterProC[facility] SystemReason for referral (narrative)* Diagnostic Procedure Only (Routine) - Pending Review Specialty Diagnoses / Procedures Referred By Tiffani norwood Referred To Contact MOLECULAR & FUNCTIONAL IMAGING Diagnoses Chronic systolic HF (heart failure) (HCC) Other cardiomyopathy (HCC) Procedures NM SPECT/CT CARDIAC AMYLOID RP LOCLZJ KARO SPECT W/CT 1 AREA 1 DAY IMAGING Alex Riggins MD [address] [id number] Molecular & Functional Imaging [address] [place] [address] Referral ID Status Reason Start Date Expiration Date Visits Requested Visits Authorized [id number] Pending Review Auto-Generat ed Referral 01/27/2022 02/26/2023 1 1 [facility] for referral (narrative)* Diagnostic Procedure Only (Routine) - Closed Specialty Diagnoses / Procedures Referred By Tiffani norwood Referred To Contact MOLECULAR & FUNCTIONAL IMAGING Diagnoses Chronic systolic HF (heart failure) (HCC) Other cardiomyopathy (HCC) Procedures NM SPECT/CT CARDIAC AMYLOID RP LOCLZJ KARO SPECT W/CT 1 AREA 1 DAY IMAGING Alex Riggins MD [address] [id number] Molecular & Functional Imaging [address] [id number] Referral ID Status Reason Start Date Expiration Date V isits Requested Visits Authorized Closed Auto-Generate d Referral 01/27/2022 02/26/2023 1 1 [facility] for referral (narrative)* Outpatient Procedure (Routine) - Pending Review Specialty Diagnoses / Procedures Referred By Contac t Referred To Contact [facility] [place] Diagnoses Peripheral arterial disease (HCC) Chronic systolic HF (heart failure) (HCC) Procedures [facility] NON-INVASIVE PHYSIOLOGIC STUDY EXTREMITY 3 Alex Mullins MD [address] [place] [address] [address] [id number] Referral ID Status Reason Start Date Expiration Date Visits Requested Visits Authorized [id number] Pending Review Auto-Generat ed Referral 10/19/2022 10/19/2023 1 1 * Outpatient Procedure (Routine) - Pending Review Specialty Diagnoses / Procedures Referred By Contac t Referred To Contact [facility] Diagnoses Chronic systolic HF (heart failure) (HCC) Procedures ECHO ECHO TTHRC R-T 2D W/WOM-MODE COMPL SPEC&COLR D Alex Riggins MD [address] [place] [address] [address] Referral ID Status Reason Start Date Expiration Date Visits Requested Visits Authorized [id number] Pending Review Auto-Generat ed Referral 01/16/2023 10/19/2023 1 1 [facility] for referral (narrative)* Outpatient Procedure (Routine) - Closed Specialty Diagnoses / Procedures Referred By Contac t Referred To Contact [facility] Diagnoses Chronic systolic HF (heart failure) (HCC) Procedures ECHO ECHO TTHRC R-T 2D W/WOM-MODE COMPL SPEC&COLR D Alex Riggins MD [address] [place] [address] [address] Referral ID Status Reason Start Date Expiration Date V isits Requested Visits Authorized [id number] Closed Auto-Generate d Referral 01/16/2023 10/19/2023 1 1 [facility] for referral (narrative)* Outpatient Procedure (Routine) - Closed Specialty Diagnoses / Procedures Referred By Contac t Referred To [facility] Diagnoses Peripheral arterial disease (HCC) Chronic systolic HF (heart failure) (HCC) Procedures P[facility] LEG [facility] LAB NON-INVASIVE PHYSIOLOGIC STUDY EXTREMITY 3 Alex Mullins MD [address] [place], [place] [id number] [place] [address] Referral ID Status Reason Start Date Expiration Date V isits Requested Visits Authorized [id number] Closed Auto-Generate d Referral 10/19/2022 10/19/2023 1 1 [facility] for referral (narrative)* Outpatient Procedure (Routine) - Authorized Specialty Diagnoses / Procedures Referred By Contac t [facility] [facility] Diagn[facility] Venous hypertension 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 Procedures US VISCERAL VEIN COMPLETE VAS LAB DUP-SCAN ARTL TAVO ABDL/PEL/SCROT&/RPR ORGN COM Yuki Car MD [address] [place] [address] [place] [address] Referral ID Status Reason Start Date Expiration Date Visits Requested Visits Authorized [id number] Authorized Auto-Generat ed Referral 11/07/2023 11/06/2024 1 1 * Outpatient Procedure (Routine) - Authorized Specialty Diagnoses / Procedures Referred By Contac t Referred To [facility] Diagnoses Venous hypertension 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 Procedures US VENOUS INCOMPETENCY UNL VAS LAB DUP-SCAN XTR VEINS UNILATERAL/LIMITED STUDY Yuki Car MD [address] [place] [address] [place] [address] Referral ID Status Reason Start Date Expiration Date Visits Requested Visits Authorized [id number] Authorized Auto-Generat ed Referral 11/07/2023 11/06/2024 1 1 [facility] for visit Narrative* Diagnostic Procedure Only (Routine) - Closed Specialty Diagnoses / Procedures [facility] MOLECULAR & FUNCTIONAL IMAGING Diagnoses Chronic systolic HF (heart failure) (HCC) Other cardiomyopathy (HCC) Procedures NM SPECT/CT CARDIAC AMYLOID RP LOCLZJ KARO SPECT W/CT 1 AREA 1 [place] [address] [place], [place] [id number] Molecular & Functional Imaging [address] [place] [address] Referral ID Status Reason Start Date Expiration Date V isits Requested Visits Authorized [id number] Closed Auto-Generate d Referral 01/27/2022 02/26/2023 1 1 [facility] for visit Narrative* Outpatient Procedure (Routine) - Closed Specialty Diagnoses / Procedures [facility]erred To Contact [facility] [place] Diagnoses Chronic systolic HF (heart failure) (HCC) Procedures ECHO ECHO TTHRC R-T 2D W/WOM-MODE COMPL SPEC&COLR D Alex Riggins MD [address] [place] [address] [place] [address] Referral ID Status Reason Start Date Expiration Date V isits Requested Visits Authorized [id number] Closed Auto-Generate d Referral 01/16/2023 10/19/2023 1 1 [facility] for visit Narrative* Outpatient Procedure (Routine) - Closed Specialty Diagnoses / Procedures [facility]erred To Contact [facility] [place] Diagnoses Peripheral arterial disease (HCC) Chronic systolic HF (heart failure) (HCC) Procedures PVR LEG ZAHIRA VAS LAB NON-INVASIVE PHYSIOLOGIC STUDY EXTREMITY 3 LEVLS Alex Riggins MD [address] [place] [address] [facility] [place] [address] Referral ID Status Reason Start Date Expiration Date V isits Requested Visits Authorized [id number] Closed Auto-Generate d Referral 10/19/2022 10/19/2023 1 1 [facility] Summary Purpose Family History No Family History Records FoundNo Family History Records FoundNo Family History Records FoundNo Family History Records FoundNo Family History Records FoundNo Family History Records FoundNo Family History Records FoundNo Family History Records FoundNo Family History Records Found Advance Directives No Advanced Directives Records FoundDocuments on File Type Date Recorded 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 ACP-Advance Directive ACP-Power of Inside 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 Consultant Latest Code Status on File Code Status Date Activated Date Inactivated Comments Full Code 09/22/2023 5:17 PM 09/24/2023 1:20 PM Latest Code Status on File Code Status Date Activated Date Inactivated Comments Full Code 09/22/2023 5:17 PM 09/24/2023 1:20 PM Reason for Referral Status Reason Specialty Diagnoses / Procedures Referre d By Contact Referred To Contact Closed Radiology Diagnoses Breast cancer screening by mammogram Procedures LACHELLE ALMA DELIA DIGITAL SCREEN SELF REFERRAL W OR WO CAD BILATERAL [employer] [employer] [address] [place] [address] Specialty Diagnoses / Procedures Referred By Contac t Referred To Contact MR IMAGING Diagnoses Cardiomyopathy, unspecified type (HCC) Chronic systolic HF (heart failure) (HCC) Procedures MRI CARDIAC VELOCITY FLOW MAP CARDIAC MRI FOR VELOCITY FLOW MAPPING Alex Riggins MD [address] [place] [address] Mr Imaging Referral ID Status Reason Start Date Expiration Date V isits Requested Visits Authorized [id number] Closed Auto-Generate d Referral 11/02/2021 12/02/2022 1 1 Specialty Diagnoses / Procedures Referred By Contac t Referred To Contact MR IMAGING Diagnoses Cardiomyopathy, unspecified type (HCC) Chronic systolic HF (heart failure) (HCC) Procedures MRI CARDIAC MORPH FUNC WO/W IVCON CARDIAC MRI W/WO CONTRAST & FURTHER SEQ Alex Riggins MD [address] [place] [id number] Mr Imaging Referral ID Status Reason Start Date Expiration Date V isits Requested Visits Authorized [id number] Closed Auto-Generate d Referral 11/02/2021 12/02/2022 1 1 Specialty Diagnoses / Procedures Referred By Contac t Referred To Contact Endocrinology Diagnoses Hypo-osmolality and hyponatremia Procedures CONSULT TO ENDOCRINOLOGY OFFICE/OUTPATIENT NEW HIGH MDM 60-74 MINUTES Marti Larsen, [facility] [place] [id number] Referral ID Status Reason Start Date Expiration Date Visits Requested Visits Authorized [id number] Authorized PCP Requested Referral 12/30/2022 12/30/2023 1 1 Specialty Diagnoses / Procedures Referred By Contac t Referred To Contact Radiology Diagnoses Cigarette nicotine dependence, uncomplicated Procedures CT low dose lung screening (Annual) Laura Mac, [address] [place] [address] Referral ID Status Reason Start Date Expiration Date V isits Requested Visits Authorized [id number] Pending Review 11/10/2023 11/09/2024 1 1 Specialty Diagnoses / Procedures Referred By Contac t Referred To Contact [facility] [place] Diagnoses Chronic systolic HF (heart failure) (HCC) Procedures CARDIOVASCULAR MEDICINE OP FOLLOW UP APPT ORDER Alex Riggins MD [address] [place] [address] [facility] [place] [address] Referral ID Status Reason Start Date Expiration Date Visits Requested Visits Authorized [id number] Ref Not Required PCP Requested Referral 11/01/2023 10/31/2024 1 1 Specialty Diagnoses / Procedures Referred By Contac t Referred To Contact [facility] [place] Diagnoses Chronic systolic HF (heart failure) (HCC) Procedures ECHO ECHO TTHRC R-T 2D W/WOM-MODE COMPL SPEC&COLR D Alex Riggins MD [address] [place] [address] [place] [phone] Referral ID Status Reason Start Date Expiration Date Visits Requested Visits Authorized [id number] Pending Review Auto-Generat ed Referral 11/01/2023 10/31/2024 1 1 Specialty Diagnoses / Procedures Referred By Contac t Referred To Contact [facility] Procedures CARDIOVASCULAR MEDICINE OP FOLLOW UP APPT ORDER Yuki Car MD [address] [place], [place] [phone] [place] [address] Referral ID Status Reason Start Date Expiration Date Visits Requested Visits Authorized [id number] Ref Not Required PCP Requested Referral 10/19/2024 01/17/2025 1 1 Specialty Diagnoses / Procedures Referred By Contac t Referred To Contact [facility] 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 Procedures US VISCERAL VEIN COMPLETE VAS LAB DUP-SCAN ARTL TAVO ABDL/PEL/SCROT&/RPR ORGN COM Yuki Car MD [address] [place] [address] [place] [phone] Referral ID Status Reason Start Date Expiration Date Visits Requested Visits Authorized [id number] Pending Review Auto-Generat ed Referral 01/12/2024 01/11/2025 1 1 Specialty Diagnoses / Procedures Referred By Contac t Referred To Contact CT IMAGING 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 Procedures CTA ABD/PEL W IVCON CT ANGIO ABD&PLVIS CNTRST MTRL W/WO CNTRST IMGES Yuki Car MD [address] [place] [address] [place] [address] Referral ID Status Reason Start Date Expiration Date Visits Requested Visits Authorized [id number] Authorized Auto-Generat ed Referral 03/15/2024 04/14/2025 1 1 Referral ID Status Reason Start Date Expiration Date V isits Requested Visits Authorized [id number] Closed Auto-Generate d Referral 03/15/2024 04/14/2025 1 1 Additional Source Comments INFORMATION SOURCE (unrecogn ized section and content) DATE CREATED AUTHOR 02/23/2018 [facility] DATE CREATED AUTHOR AUTHOR'S ORGANIZ ATION 02/17/2021 [facility] DATE CREATED AUTHOR AUTHOR'S ORGANIZ ATION 12/24/2022 [facility] DATE CREATED AUTHOR AUTHOR'S ORGANIZ ATION 03/25/2023 [facility] DATE CREATED AUTHOR AUTHOR'S ORGANIZ ATION 10/01/2023 [facility] DATE CREATED AUTHOR AUTHOR'S ORGANIZ ATION 02/10/2024 [facility] DATE CREATED AUTHOR AUTHOR'S ORGANIZ ATION 03/20/2024 [facility] DATE CREATED AUTHOR AUTHOR'S ORGANIZ ATION 03/21/2024 [facility] DATE CREATED AUTHOR AUTHOR'S ORGANIZ ATION 03/31/2024 [facility] Reason for Visit (unrecogniz ed section and content) Status Reason Specialty Diagnoses / Procedures Referre d By Contact Referred To Contact Closed Radiology Diagnoses Breast cancer screening by mammogram Procedures LACHELLE ALMA DELIA DIGITAL SCREEN SELF REFERRAL W OR WO CAD BILATERAL [employer] [address] [place] [address] Reason Comments Clinical Update Reason Comments Counseling Reason Comments Radiology MRI Specialty Diagnoses / Procedures Referred By Tiffani t Referred To Contact MR IMAGING Diagnoses Cardiomyopathy, unspecified type (HCC) Chronic systolic HF (heart failure) (HCC) Procedures MRI CARDIAC MORPH FUNC WO/W IVCON CARDIAC MRI W/WO CONTRAST & FURTHER SEQ Alex Riggins MD [address] [place] [address] Mr Imaging Referral ID Status Reason Start Date Expiration Date V isits Requested Visits Authorized [id number] Closed Auto-Generate d Referral 11/02/2021 12/02/2022 1 1 Reason Comments Follow Up Reason Comments Advice Only Reason Comments Follow Up Reason Comments Lab Orders Faxed Reason Comments Rx Refills Reason Comments Entresto Reason Comments Follow Up Reason Comments Results Lab Rcvd Reason Comments Follow Up Rx Refills Reason Comments Outside Labs Results Reason Comments BI Patient assistance Reason Comments Forms [employer] Reason Comments Appointment Reason Comments Med Refill Reason Comments Follow-up Labs: 08/23/2023XR: 09/22/2023 & 09/23/2023rrived on 2.5Lnc of O2 COPD Reason Comments Consult Specialty Diagnoses / Procedures Referred By Contac t Referred To Contact Vascular Medicine Diagnoses Discoloration of skin of multiple sites of lower extremity Procedures CONSULT TO VASCULAR MEDICINE OFFICE/OUTPATIENT [facility] HIGH MDM 60-74 MINUTES Alex Riggins MD [address] [place] [address] Referral ID Status Reason Start Date Expiration Date V isits Requested Visits Authorized [id number] Closed PCP Requested Referral 04/21/2023 04/20/2024 1 1 Reason Comments Follow Up Venous hypertension Reason Comments Patient calling for results from 02/21 trasound Specialty Diagnoses / Procedures Referred By Contac t Referred To Contact CT IMAGING 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 Procedures CTA ABD/PEL W IVCON CT ANGIO ABD&PLVIS CNTRST MTRL W/WO CNTRST Yuki Cardona MD [address] [place] [id number] [facility] [place] [address] Referral ID Status Reason Start Date Expiration Date V isits Requested Visits Authorized [id number] Closed Auto-Generate d Referral 03/15/2024 04/14/2025 1 1 Source Comments (unrecognize d section and content) In the event this informatio n is protected by the Federal Confidentiality of Alcohol and Drug Abuse Patient Records regulations: The Federal rules restrict any use of the information to criminally investigate or prosecute any alcohol or drug abuse patient.[facility] the event this information is protected by the Federal Confidentiality of Alcohol and Drug Abuse Patient Records regulations: The Federal rules restrict any use of the information to criminally investigate or prosecute any alcohol or drug abuse patient.[facility] CenterIn the event this information is protected by the Federal Confidentiality of Alcohol and Drug Abuse Patient Records regulations: The Federal rules restrict any use of the information to criminally investigate or prosecute any alcohol or drug abuse patient.[facility] CenterIn the event this information is protected by the Federal Confidentiality of Alcohol and Drug Abuse Patient Records regulations: The Federal rules restrict any use of the information to criminally investigate or prosecute any alcohol or drug abuse patient.[facility] CenterIn the event this information is protected by the Federal Confidentiality of Alcohol and Drug Abuse Patient Records regulations: The Federal rules restrict any use of the information to criminally investigate or prosecute any alcohol or drug abuse patient.[facility] CenterIn the event this information is protected by the Federal Confidentiality of Alcohol and Drug Abuse Patient Records regulations: The Federal rules restrict any use of the information to criminally investigate or prosecute any alcohol or drug abuse patient.[facility] CenterIn the event this information is protected by the Federal Confidentiality of Alcohol and Drug Abuse Patient Records regulations: The Federal rules restrict any use of the information to criminally investigate or prosecute any alcohol or drug abuse patient.[facility] CenterIn the event this information is protected by the Federal Confidentiality of Alcohol and Drug Abuse Patient Records regulations: The Federal rules restrict any use of the information to criminally investigate or prosecute any alcohol or drug abuse patient.[facility] CenterIn the event this information is protected by the Federal Confidentiality of Alcohol and Drug Abuse Patient Records regulations: The Federal rules restrict any use of the information to criminally investigate or prosecute any alcohol or drug abuse patient.[facility] CenterIn the event this information is protected by the Federal Confidentiality of Alcohol and Drug Abuse Patient Records regulations: The Federal rules restrict any use of the information to criminally investigate or prosecute any alcohol or drug abuse patient.[facility] CenterIn the event this information is protected by the Federal Confidentiality of Alcohol and Drug Abuse Patient Records regulations: The Federal rules restrict any use of the information to criminally investigate or prosecute any alcohol or drug abuse patient.[facility] CenterIn the event this information is protected by the Federal Confidentiality of Alcohol and Drug Abuse Patient Records regulations: The Federal rules restrict any use of the information to criminally investigate or prosecute any alcohol or drug abuse patient.[facility] CenterIn the event this information is protected by the Federal Confidentiality of Alcohol and Drug Abuse Patient Records regulations: The Federal rules restrict any use of the information to criminally investigate or prosecute any alcohol or drug abuse patient.[facility] CenterIn the event this information is protected by the Federal Confidentiality of Alcohol and Drug Abuse Patient Records regulations: The Federal rules restrict any use of the information to criminally investigate or prosecute any alcohol or drug abuse patient.[facility] CenterIn the event this information is protected by the Federal Confidentiality of Alcohol and Drug Abuse Patient Records regulations: The Federal rules restrict any use of the information to criminally investigate or prosecute any alcohol or drug abuse patient.[facility] CenterIn the event this information is protected by the Federal Confidentiality of Alcohol and Drug Abuse Patient Records regulations: The Federal rules restrict any use of the information to criminally investigate or prosecute any alcohol or drug abuse patient.[facility] CenterIn the event this information is protected by the Federal Confidentiality of Alcohol and Drug Abuse Patient Records regulations: The Federal rules restrict any use of the information to criminally investigate or prosecute any alcohol or drug abuse patient.[facility] CenterIn the event this information is protected by the Federal Confidentiality of Alcohol and Drug Abuse Patient Records regulations: The Federal rules restrict any use of the information to criminally investigate or prosecute any alcohol or drug abuse patient.[facility] CenterIn the event this information is protected by the Federal Confidentiality of Alcohol and Drug Abuse Patient Records regulations: The Federal rules restrict any use of the information to criminally investigate or prosecute any alcohol or drug abuse patient.[facility] CenterIn the event this information is protected by the Federal Confidentiality of Alcohol and Drug Abuse Patient Records regulations: The Federal rules restrict any use of the information to criminally investigate or prosecute any alcohol or drug abuse patient.[facility] CenterIn the event this information is protected by the Federal Confidentiality of Alcohol and Drug Abuse Patient Records regulations: The Federal rules restrict any use of the information to criminally investigate or prosecute any alcohol or drug abuse patient.[facility] CenterIn the event this information is protected by the Federal Confidentiality of Alcohol and Drug Abuse Patient Records regulations: The Federal rules restrict any use of the information to criminally investigate or prosecute any alcohol or drug abuse patient.[facility] CenterIn the event this information is protected by the Federal Confidentiality of Alcohol and Drug Abuse Patient Records regulations: The Federal rules restrict any use of the information to criminally investigate or prosecute any alcohol or drug abuse patient.[facility] CenterIn the event this information is protected by the Federal Confidentiality of Alcohol and Drug Abuse Patient Records regulations: The Federal rules restrict any use of the information to criminally investigate or prosecute any alcohol or drug abuse patient.[facility] CenterIn the event this information is protected by the Federal Confidentiality of Alcohol and Drug Abuse Patient Records regulations: The Federal rules restrict any use of the information to criminally investigate or prosecute any alcohol or drug abuse patient.[facility] CenterIn the event this information is protected by the Federal Confidentiality of Alcohol and Drug Abuse Patient Records regulations: The Federal rules restrict any use of the information to criminally investigate or prosecute any alcohol or drug abuse patient.[facility] CenterIn the event this information is protected by the Federal Confidentiality of Alcohol and Drug Abuse Patient Records regulations: The Federal rules restrict any use of the information to criminally investigate or prosecute any alcohol or drug abuse patient.[facility] CenterIn the event this information is protected by the Federal Confidentiality of Alcohol and Drug Abuse Patient Records regulations: The Federal rules restrict any use of the information to criminally investigate or prosecute any alcohol or drug abuse patient.[facility] CenterIn the event this information is protected by the Federal Confidentiality of Alcohol and Drug Abuse Patient Records regulations: The Federal rules restrict any use of the information to criminally investigate or prosecute any alcohol or drug abuse patient.[facility] CenterIn the event this information is protected by the Federal Confidentiality of Alcohol and Drug Abuse Patient Records regulations: The Federal rules restrict any use of the information to criminally investigate or prosecute any alcohol or drug abuse patient.[facility] CenterIn the event this information is protected by the Federal Confidentiality of Alcohol and Drug Abuse Patient Records regulations: The Federal rules restrict any use of the information to criminally investigate or prosecute any alcohol or drug abuse patient.[facility] CenterIn the event this information is protected by the Federal Confidentiality of Alcohol and Drug Abuse Patient Records regulations: The Federal rules restrict any use of the information to criminally investigate or prosecute any alcohol or drug abuse patient.[facility] CenterIn the event this information is protected by the Federal Confidentiality of Alcohol and Drug Abuse Patient Records regulations: The Federal rules restrict any use of the information to criminally investigate or prosecute any alcohol or drug abuse patient.[facility] CenterIn the event this information is protected by the Federal Confidentiality of Alcohol and Drug Abuse Patient Records regulations: The Federal rules restrict any use of the information to criminally investigate or prosecute any alcohol or drug abuse patient.[facility] CenterIn the event this information is protected by the Federal Confidentiality of Alcohol and Drug Abuse Patient Records regulations: The Federal rules restrict any use of the information to criminally investigate or prosecute any alcohol or drug abuse patient.[facility] CenterIn the event this information is protected by the Federal Confidentiality of Alcohol and Drug Abuse Patient Records regulations: The Federal rules restrict any use of the information to criminally investigate or prosecute any alcohol or drug abuse patient.[facility] Care Teams (unrecognized sec tion and content) It Risk And Assurance Senior Manager Relationship Specialty Start Date End Date Luiz Tadeo [address] [place] [address] PCP - General Family Practice 11/02/21 It Risk And Assurance Senior Manager Relationship Specialty Start Date End Date Luiz Tadeo [address] [place] [address] PCP - General Family Practice 11/02/21 It Risk And Assurance Senior Manager Relationship Specialty Start Date End Date Luiz Tadeo [address] [place] [address] PCP - General Family Practice 11/02/21 It Risk And Assurance Senior Manager Relationship Specialty Start Date End Date Luiz Tadeo [address] [place] [address] PCP - General Family Practice 11/02/21 It Risk And Assurance Senior Manager Relationship Specialty Start Date End Date Luiz Tadeo [address] [place] [address] PCP - General Family Practice 11/02/21 It Risk And Assurance Senior Manager Relationship Specialty Start Date End Date Luiz Tadeo [address] [place] [address] PCP - General Family Practice 11/02/21 It Risk And Assurance Senior Manager Relationship Specialty Start Date End Date Luiz Tadeo [address] [place] [address] PCP - General Family Practice 11/02/21 It Risk And Assurance Senior Manager Relationship Specialty Start Date End Date Luiz Tadeo [address] [place] [address] PCP - General Family Practice 11/02/21 It Risk And Assurance Senior Manager Relationship Specialty Start Date End Date Luiz Tadeo [address] [place] [address] PCP - General Family Medicine 11/02/21 It Risk And Assurance Senior Manager Relationship Specialty Start Date End Date Luiz Tadeo [address] [place] [address] PCP - General Family Medicine 11/02/21 It Risk And Assurance Senior Manager Relationship Specialty Start Date End Date Luiz Tadeo [address] [place] [address] PCP - General Family Medicine 11/02/21 It [employer] Senior Manager Relationship Specialty Start Date End Date Luiz Tadeo [address] [place] [address] PCP - General Family Medicine 11/02/21 Alex Riggins MD [address] [place] [address] Primary Staff Physician Cardiology 07/13/22 It [employer] Assurance Senior Manager Relationship Specialty Start Date End Date Luiz Tadeo [address] [place] [address] PCP - General Family Medicine 11/02/21 Alex Riggins MD [address] [place] [address] Primary Staff Physician Cardiology 07/13/22 It Risk And Assurance Senior Manager Relationship Specialty Start Date End Date Luiz Tadeo Linnette [address] [place] [address] PCP - General Family Medicine 11/02/21 Alex Riggins MD [address] [place] [address] Primary Staff Physician Cardiology 07/13/22 It Risk And Assurance Senior Manager Relationship Specialty Start Date End Date Luiz Tadeo Lninette [address] [place] [address] PCP - General Family Medicine 11/02/21 Alex Riggins MD [address] [place] [address] Primary Staff Physician Cardiology 07/13/22 It [employer] Assurance Senior Manager Relationship Specialty Start Date End Date Luiz Tadeo Linnette [address] [place] [address] PCP - General Family Medicine 11/02/21 Alex Riggins MD [address] [place] [address] Primary Staff Physician Cardiology 07/13/22 It Risk And Assurance Senior Manager Relationship Specialty Start Date End Date Luiz Tadeo [address] [place] [address] PCP - General Family Medicine 11/02/21 Alex Riggins MD [address] [place] [address] Primary Staff Physician Cardiology 07/13/22 It Risk And Assurance Senior Manager Relationship Specialty Start Date End Date Luiz Tadeo [address] [place] [address] PCP - General Family Medicine 11/02/21 Alex Riggins MD [address] [place] [address] Primary Staff Physician Cardiology 07/13/22 It Risk And Assurance Senior Manager Relationship Specialty Start Date End Date Luiz Tadeo [address] [place] [address] PCP - General Family Medicine 11/02/21 Alex Riggins MD [address] [place], [place] [id number] Primary Staff Physician Cardiology 07/13/22 It Risk And Assurance Senior Manager Relationship Specialty Start Date End Date Luiz Tadeo [address] [place] [address] PCP - General Family Medicine 11/02/21 Alex Riggins MD [address] [place], [place] [id number] Primary Staff Physician Cardiology 07/13/22 It Risk And Assurance Senior Manager Relationship Specialty Start Date End Date Luiz Tadeo [address] [place] [address] PCP - General Family Medicine 11/02/21 Alex Riggins MD [address] [place], [place] [id number] Primary Staff Physician Cardiology 07/13/22 It Risk And Assurance Senior Manager Relationship Specialty Start Date End Date Luiz Tadeo [address] [place] [address] PCP - General Family Medicine 11/02/21 Alex Riggins MD [address] [place] [address] Primary Staff Physician Cardiology 07/13/22 It Risk And Assurance Senior Manager Relationship Specialty Start Date End Date Luiz Tadeo [address] [place] [address] PCP - General Family Medicine 11/02/21 Alex Riggins MD [address] [place], [place] [id number] Primary Staff Physician Cardiology 07/13/22 It Risk And Assurance Senior Manager Relationship Specialty Start Date End Date Luiz Tadeo [address] [place] [address] PCP - General Family Medicine 11/02/21 Alex Riggins MD [address] [place], [place] [id number] Primary Staff Physician Cardiology 07/13/22 It Risk And Assurance Senior Manager Relationship Specialty Start Date End Date Luiz Tadeo MD [address] [place] [address] PCP - General Family Medicine 05/20/21 It Risk And Assurance Senior Manager Relationship Specialty Start Date End Date Luiz Tadeo MD [address] [place] [address] PCP - General Family Medicine 05/20/21 It Risk And Assurance Senior Manager Relationship Specialty Start Date End Date Luiz Tadeo MD [address] [place] [address] PCP - General Family Medicine 05/20/21 It Risk And Assurance Senior Manager Relationship Specialty Start Date End Date Luiz Tadeo [address] [place] [address] PCP - General Family Medicine 11/02/21 Alex Riggins MD [address] [place] [address] Primary Staff Physician Cardiology 07/13/22 It Risk And Assurance Senior Manager Relationship Specialty Start Date End Date Luiz Tadeo MD [address] [place] [address] PCP - General Family Medicine 05/20/21 It Risk And Assurance Senior Manager Relationship Specialty Start Date End Date Luiz Tadeo MD [address] [facility] [place] [address] PCP - General Family Medicine 05/20/21 It Risk And Assurance Senior Manager Relationship Specialty Start Date End Date Luiz Tadeo [address] [place] [address] PCP - General Family Medicine 11/02/21 Alex Riggins MD [address] [place], [place] [id number] Primary Staff Physician Cardiology 07/13/22 It Risk And Assurance Senior Manager Relationship Specialty Start Date End Date Luiz Tadeo [address] [place] [address] PCP - General Family Medicine 11/02/21 Alex Riggins MD [address] [place] [address] Primary Staff Physician Cardiology 07/13/22 It Risk And Assurance Senior Manager Relationship Specialty Start Date End Date Luiz Tadeo [address] [place] [address] PCP - General Family Medicine 11/02/21 Alex Riggins MD [address] [place], [place] [phone] Primary Staff Physician Cardiology 07/13/22 It Risk And Assurance Senior Manager Relationship Specialty Start Date End Date Luiz Tadeo [address] [place] [address] PCP - General Family Medicine 11/02/21 Alex Riggins MD [address] [place] [address] Primary Staff Physician Cardiology 07/13/22 It Risk And Assurance Senior Manager Relationship Specialty Start Date End Date Luiz Tadeo [address] [place] [address] PCP - General Family Medicine 11/02/21 Alex Riggins MD [address] [place] [address] Primary Staff Physician Cardiology 07/13/22 FOR RECORDS PERTAINING TO PATIENTS WHO ARE OR HAVE BEEN ENROLLED IN A CHEMICAL DEPENDENCY/SUBSTANCEABUSE PROGRAM, SOME INFORMATION MAY BE OMITTED. This clinical summary was aggregated from multiple sources. Caution should be exercised in using it in the provision of clinical care. This summary normalizes information from multiple sources, and as a consequence, information in this document may materially change the coding, format and clinical context of patient data. In addition, data may be omitted in some cases. CLINICAL DECISIONS SHOULD BE BASED ON THE PRIMARY CLINICAL RECORDS. [employer] [facility]. provides no warranty or guarantee of the accuracy or completeness of information in this document.
--- NOTE | 2024-04-21 17:22 | ECG_ITS ---
The [facility] Test Date: 2024-04-21 Pat Name: MARCELA BREWER Department: Room: - Gender: Female Manager Trade: : 1950 Requested By: JOVAN TADEO Order Number: [id number] Reading MD: ARACELI ANDINO Measurements Intervals [place] Rate: 83 P: 105 MN: 190 QRS: 94 QRSD: 88 T: 82 QT: 366 QTc: 406 Interpretive Statements 1100 Sinus rhythm 3434 Septal myocardial infarction, age undetermined 7102 Moderate right axis deviation 0101 Possible arm leads reversed, check lead requested 9150 abnormal ECG Compared to ECG 05/14/2023 17:46:39 Right-axis deviation now present Myocardial infarct finding still present Electronically Signed On 04-22-2024 18:53:17 EDT by ARACELI ANDINO
--- NOTE | 2024-04-21 17:23 | ED.GENADUL1 ---
HPI HPI - General Adult General Chief complaint: Shortness of Breath/Dyspnea Stated complaint: SOB Time Seen by Provider: 04/21/24 17:03 Source: patient Mode of arrival: walk-in Limitations: no limitations History of Present Illness HPI narrative: Patient is a thin 74-year-old female with a history of COPD dependent on oxygen by nasal cannula 2 to 3 L chronically who presents for evaluation of increasing shortness of breath today. She tested positive with a sputum culture for Pseudomonas earlier this year and was hospitalized for treatment, she states she tested positive again in March and completed 20 days of antibiotic treatment. She states she is due to restart treatment soon. She has no chest pain. No fevers or vomiting. She reports her normal daily cough. Related Data Home Medications ?Medication ?Instructions ?Recorded ?Confirmed albuterol 90 mcg/actuation aerosol 90 mcg inhalation Q4H PRN dyspnea 05/14/23 12/29/23 inhaler empagliflozin 10 mg tablet 10 mg PO DAILY 05/14/23 12/29/23 (Jardiance) esomeprazole magnesium 40 mg 40 mg PO BID 05/14/23 12/29/23 capsule,delayed release (Nexium) guaifenesin 400 mg tablet 400 mg PO TID 05/14/23 12/29/23 lorazepam 1 mg tablet (Ativan) 1 mg PO Q12H PRN anxiety 05/14/23 12/29/23 metoprolol tartrate 25 mg tablet 25 mg PO BID 05/14/23 12/29/23 prednisone 10 mg tablet 10 mg PO DAILY 05/14/23 12/29/23 roflumilast 500 mcg tablet 500 mcg PO DAILY 05/14/23 12/29/23 (Daliresp) sacubitril 24 mg-valsartan 26 mg 1 tab PO BID 05/14/23 12/29/23 tablet (Entresto) metoprolol tartrate 50 mg tablet 50 mg PO BID 12/29/23 12/29/23 (Lopressor) Previous Rx's ?Medication ?Instructions ?Recorded prednisone 20 mg tablet 20 mg PO DAILY #4 tabs 05/14/23 doxycycline hyclate 100 mg tablet 100 mg PO BID 10 days #20 tabs 04/21/24 prednisone 20 mg tablet See Rx Instructions .Route 04/21/24 .COMPLEX #9 tabs Allergies Allergy/AdvReac Type Severity Reaction Status Date / Time cephalexin [From Keflex] Allergy Intermediate Verified 05/14/23 16:03 leviquin Allergy Unknown Uncoded 05/14/23 16:03 Opioid HPI Opioid Management Most Recent Opioid Data: No Data to Display Review of Systems ROS Constitutional Denies: fever or chills Ears, nose, mouth, and throat Denies: throat pain or nasal congestion Cardiovascular Denies: chest pain Respiratory Reports: shortness of breath, cough and wheezing Gastrointestinal Denies: nausea or vomiting Integumentary/Breast Denies: rash Neurological Denies: numbness in extremities or weakness in extremities Hematologic/Lymphatic Denies: easy bruising or easy bleeding [facility] Medical History (Updated 04/21/24 @ 19:08 by VALDEZ Mukherjee) On home oxygen therapy ?Z99.81 - Dependence on supplemental oxygen (ICD-10) Chronic obstructive pulmonary disease ?J44.9 - Chronic obstructive pulmonary disease, unspecified (ICD-10) Congestive heart failure ?I50.9 - Heart failure, unspecified (ICD-10) Exam Narrative Exam Narrative: Gen.: Awake, alert, in no distress Head: Normocephalic, atraumatic ENT: Moist mucous membranes Respiratory: No respiratory distress, tachypnea with expiratory wheezing globally Cardio: Regular rate and rhythm Extremities: Moves extremities equally, no pedal edema Psych: Normal mood and affect Neuro: No focal neuro deficit Skin: Warm, dry, intact Constitutional Vital Signs, click to edit/add: Last Vital Signs Temp 97.9 F 04/21/24 17:14 Pulse 93 H 04/21/24 18:50 Resp 27 H 04/21/24 18:50 BP 160/95 H 04/21/24 17:30 Pulse Ox 98 04/21/24 18:50 O2 Del Method Nasal Cannula 04/21/24 18:02 O2 Flow Rate 2 04/21/24 18:02 Course Vital Signs Vital signs: Vital Signs Temperature 97.9 F 04/21/24 17:14 Pulse Rate 90 04/21/24 17:14 Respiratory Rate 18 04/21/24 17:14 Blood Pressure 161/75 H 04/21/24 17:14 Pulse Oximetry 99 04/21/24 17:14 Oxygen Delivery Method Nasal Cannula 04/21/24 17:14 Oxygen Delivery Flow Rate 2 04/21/24 17:14 Temperature 97.9 F 04/21/24 17:14 Pulse Rate 93 H 04/21/24 18:50 Respiratory Rate 27 H 04/21/24 18:50 Blood Pressure 160/95 H 04/21/24 17:30 Pulse Oximetry 98 04/21/24 18:50 Oxygen Delivery Method Nasal Cannula 04/21/24 18:02 Oxygen Delivery Flow Rate 2 04/21/24 18:02 Medical Decision Making MDM Narrative Medical decision making narrative: On arrival, patient is not hypoxic and is not in respiratory distress although she does have diffuse wheezing and tachypnea. Laboratory studies reviewed and noted within normal limits although the patient was recommended in order to have a CT angio of the chest. She refused this. She was also very argumentative with nursing staff about the placement of her nasal cannula. She was reevaluated by attending physician after she was given Solu-Medrol and breathing treatments. She is adamant that she will not be admitted to the hospital. She was agreeable to a chest x-ray which is unchanged and started on doxycycline and prednisone. Follow-up with PCP and return to the ER if symptoms change or worsen SHARED APC VISIT, PHYSICIAN ATTESTATION: [id number] I performed a substantive part of the MDM during the patient?s E/M visit. I personally evaluated and examined the patient. I personally made or approved the documented management plan and acknowledge its risk of complications. Medical Records Medical records reviewed: Yes I reviewed the patient's medical records Lab Data Lab results reviewed: Yes I reviewed the patient's lab results Labs: Lab Results 04/21/24 Range/Units 17:40 WBC 9.4 (4.0-11.0) 10^3/uL RBC 4.69 (4.20-5.40) 10^6/uL Hgb 14.5 (12.0-16.0) g/dL Hct 44.8 (36.0-48.0) % MCV 95.5 (81.0-99.0) fL MCH 30.9 (26.7-34.0) pg MCHC 32.4 (29.9-35.2) g/dL RDW 13.7 (11.0-15.0) % Plt Count 334 (150-450) 10^3/uL MPV 9.2 L (9.5-13.5) fL Neut % (Auto) 72.6 (43.0-75.0) % Lymph % (Auto) 11.6 L (20.5-60.0) % [facility] % (Auto) 14.2 H (1.7-12.0) % Eos % (Auto) 0.7 L (0.9-7.0) % Baso % (Auto) 0.4 (0.2-2.0) % Neut # (Auto) 6.8 H (1.4-6.5) 10^3/uL Lymph # (Auto) 1.1 L (1.2-3.8) 10^3/uL [facility] # (Auto) 1.3 H (0.3-0.8) 10^3/uL Eos # (Auto) 0.1 (0.0-0.7) 10^3/uL Baso # (Auto) 0.0 (0.0-0.1) 10^3/uL Abs Immat Gran (auto) 0.05 H (0.00-0.03) 10^3/uL Imm/Tot Granulo (auto) 0.5 (0.0-0.5) % PT 10.1 (9.0-11.6) sec INR 0.95 APTT 29.3 (22.3-36.2) sec VBG pH 7.398 (7.330-7.430) VBG pCO2 56.2 H (40.0-52.0) mmHg Sodium 133 L (136-145) mmol/L Potassium 3.7 (3.5-5.1) mmol/L Chloride 97 L (98-107) mmol/L Carbon Dioxide 35.1 H (21.0-32.0) mmol/L Anion Gap 4.6 BUN 8.0 (7.0-18.0) mg/dL Creatinine 0.61 (0.55-1.02) mg/dL Est GFR ( Amer) >60 (>=60) Est GFR (Non-Af Amer) >60 (>=60) BUN/Creatinine Ratio 13.1 Glucose 108 H (74-106) mg/dL Calcium 9.3 (8.5-10.1) mg/dL Total Bilirubin 0.4 (0.2-1.0) mg/dL AST 10 L (15-37) U/L ALT 19 (14-59) U/L Alkaline Phosphatase 53 (46-116) U/L Troponin I High Sens <4.0 L (4.0-51.3) pg/mL NT-Pro-B Natriuret Pep 321.0 (<=900.0) pg/mL Total Protein 6.7 (6.4-8.2) g/dL Albumin 3.5 (3.4-5.0) g/dL Globulin 3.2 g/dL Albumin/Globulin Ratio 1.1 Imaging Data Chest x-ray: Attestation: I have reviewed the pertinent imaging results. ECG Data Attestation: I personally reviewed and interpreted this ECG as follows: (Normal sinus rhythm at a rate of 83, no acute ST elevation or ectopy. EKG reviewed by attending physician) Discharge Plan Discharge Stand Alone Forms: Portal Instructions Chief Complaint: Shortness of Breath/Dyspnea Clinical Impression: COPD exacerbation Patient Disposition: Home, Self-Care Time of Disposition Decision: 19:08 Condition: Good Prescriptions / Home Meds: New prednisone 20 mg tablet See Rx Instructions .ROUTE .COMPLEX Qty: 9 0RF Rx Instructions: 2 tabs daily for 3 days, then 1 tab daily for 3 days doxycycline hyclate 100 mg tablet 100 mg PO BID 10 Days Qty: 20 0RF No Action metoprolol tartrate [Lopressor] 50 mg tablet 50 mg PO BID Jardiance 10 mg tablet 10 mg PO DAILY Entresto 24-26 mg tablet 1 tab PO BID roflumilast [Daliresp] 500 mcg tablet 500 mcg PO DAILY albuterol 90 mcg/actuation aerosol 90 mcg inhalation Q4H PRN (Reason: dyspnea) guaifenesin 400 mg tablet 400 mg PO TID esomeprazole magnesium [Nexium] 40 mg capsule,delayed release(DR/EC) 40 mg PO BID metoprolol tartrate 25 mg tablet 25 mg PO BID lorazepam [Ativan] 1 mg tablet 1 mg PO Q12H PRN (Reason: anxiety) prednisone 10 mg tablet 10 mg PO DAILY prednisone 20 mg tablet 20 mg PO DAILY Qty: 4 0RF Hold Instructions: . Print Language: Tanzanian Instructions: COPD (Chronic Obstructive Pulmonary Disease) (ED) Referrals: Luiz Milner MD [Primary Care Provider] - 1 week
[2024-04-21 17:50] LABS: Basophils Percent Auto 0.4 % (0.2-2.0); Eosinophils Absolute Auto 0.1 10^3/uL (0.0-0.7); Eosinophils Percent Auto 0.7 % (0.9-7.0); Hematocrit 44.8 % (36.0-48.0); Hemoglobin 14.5 g/dL (12.0-16.0); Immature Granulocytes Abs Auto 0.05 10^3/uL (0.00-0.03); Immature Granulocytes Pct Auto 0.5 % (0.0-0.5); Lymphocytes Absolute Auto 1.1 10^3/uL (1.2-3.8); Lymphocytes Percent Auto 11.6 % (20.5-60.0); Mean Corpuscular HGB Conc 32.4 g/dL (29.9-35.2); Mean Corpuscular Hemoglobin 30.9 pg (26.7-34.0); Mean Corpuscular Volume 95.5 fL (81.0-99.0); Mean Platelet Volume 9.2 fL (9.5-13.5); Monocytes Absolute Auto 1.3 10^3/uL (0.3-0.8); Monocytes Percent Auto 14.2 % (1.7-12.0); Neutrophils Absolute Auto 6.8 10^3/uL (1.4-6.5); Neutrophils Percent Auto 72.6 % (43.0-75.0); Platelet Count 334 10^3/uL (150-450); Red Blood Count 4.69 10^6/uL (4.20-5.40); Red Cell Distribution Width 13.7 % (11.0-15.0); White Blood Count 9.4 10^3/uL (4.0-11.0)
[2024-04-21] MEDS: IPRATROPIUM/ALBUTEROL SULFATE 3 ML AMPUL.NEB IH (17:50)
[2024-04-21] MEDS: ALBUTEROL SULFATE 2.5 MG/3 ML VIAL NEB IH (17:50)
[2024-04-21 17:57] LABS: PCO2 VBG 56.2 mmHg (40.0-52.0); pH VBG 7.398 (7.330-7.430)
[2024-04-21 18:06] LABS: INR 0.95; Partial Thromboplastin Time 29.3 sec (22.3-36.2); Prothrombin Time 10.1 sec (9.0-11.6)
[2024-04-21] MEDS: METHYLPREDNISOLONE SOD SUCC PF 125 MG/2 ML VIAL IVP (18:10)
[2024-04-21 18:14] LABS: Alanine Aminotransferase 19 U/L (14-59); Albumin Globulin Ratio 1.1; Albumin Level 3.5 g/dL (3.4-5.0); Alkaline Phosphatase 53 U/L (46-116); Anion Gap 4.6; Aspartate Amino Transferase 10 U/L (15-37); BUN Creatinine Ratio 13.1; Bilirubin Total 0.4 mg/dL (0.2-1.0); Calcium 9.3 mg/dL (8.5-10.1); Carbon Dioxide 35.1 mmol/L (21.0-32.0); Chloride 97 mmol/L (98-107); Estimated GFR (African America >60 (>=60); Estimated GFR (Non-African Ame >60 (>=60); Globulin 3.2 g/dL; Glucose 108 mg/dL (74-106); Potassium 3.7 mmol/L (3.5-5.1); Sodium 133 mmol/L (136-145); Total Protein 6.7 g/dL (6.4-8.2); Troponin I High Sensitivity <4.0 pg/mL (4.0-51.3)
--- NOTE | 2024-04-21 18:53 | XR_ITS ---
The [address] [address] Patient Name: MARCELA BREWER MRN: [id number] date: 1950 Sex: F Assigned Patient Location: ED.MAIN Current Patient Location: Accession/Order Number: [id number] Exam Date: 04/21/2024 18:55 Report Date: 04/21/2024 20:12 At the request of: PITA KEEN Procedure: XR chest 1V EXAM: XR chest 1V HISTORY: shortness of breath COMPARISON: 05/14/2023 TECHNIQUE: 1 view chest FINDINGS: The heart size is normal. The right lung is hyperexpanded and clear. There is chronic scarring the left apex. There is chronic left costophrenic angle pleural thickening. There is no pneumothorax. There is atherosclerosis of the aortic arch. XR/XR chest 1V IMPRESSION: Chronic fibrotic changes of the lungs without acute abnormality or significant change. Electronically authenticated by: MICHAEL BARAJAS Date: 04/21/2024 20:12
[2024-04-21] MEDS: DOXYCYCLINE MONOHYDRATE 100 MG CAPSULE PO (19:36)
== END 2024-04-21 19:37 | disposition home or self-care (01) ==
PROVIDERS: Physician Assistant; Emergency Provider Emergency Medicine; PCP Family Medicine
DX: J44.1 Chronic obstructive pulmonary disease with (acute) exacerbation (principal); Z99.81 Dependence on supplemental oxygen
CPT/HCPCS: 36415; 71045; 80053; 82800; 83880; 84484; 85025; 85610; 85730; 93005; 94640; 96374; 99285; J2919

== ENCOUNTER 2025-07-10 13:21 | Outpatient (OUT) | payer MEDICARE, OTHER, SELFPAY ==
--- OUTSIDE RECORDS SUMMARY | 2025-07-10 13:24 | XMS_ITS | Clinical Summary ---
Author Organization [facility] Address [address] [place] [address] Care Team Providers Care Agility Instructor Name Role Phone Luiz Milner MD Primary Care Provider [phone] Luiz Milner MD Unavailable Allergies Active AllergyReactionsCriticalityNoted WczqSctyvxmoTejibhmzysSoxkp06/26/2012 Rash. Trouble breathing. Can tolerate 250mg's but not 500mg's Spoke with RN confirmed with pt: Wentto ER; pt told not to take keflex again Rash. Trouble breathing. Can tolerate 250mg's but not 500mg's Spoke with RN confirmed with pt: Went to ER; pt told not to take keflex again Chlophedianol-Qbpfasrymditeul72/26/2012CiprofloxacinHives,UhblQbi3301/27/2018 ErythromycinGI intolerance,Nausea And Vomiting,Nausea PdxfYwp7707/31/2012 LevofloxacinRash,NfafqeykKgp03/26/2012 Tongue swelling CjmbjohncyZginlmwn29/26/2800EoxrhigrqfkpkfBqhmcbcv44/26/2012MontelukastSwelling, Yburnrma38/23/2021PantoprazoleGI intolerance,TogbzcfAzfggr46/04/2021Sertraline Jrunnioq97/26/2012 Medications MedicationSigDispense QuantityRefillsLast FilledStart DateEnd DateStatus Lyuxbaw-Csmtglsszma-Dpqnmzyinx (Breztri Aerosphere) 160-9-4.8 MCG/ACT aerosol Inhale 2 puffs in the morning and 2 puffs in the evening.08/18/2023ctive albuterol HFA 90 mcg/act inhaler Inhale 2 puffs every 6 (six) hours if needed for wheezing or shortness of breath 07/25/2023ctive Calcium Carb-Cholecalciferol (Calcium 1000 + D) 1000-20 MG-MCG tablet Take 1 tablet by mouth in the morning.Active empagliflozin (Jardiance) 10 MG Take 1 tablet by mouth in the morning.07/07/2023ctive guaiFENesin (Mucinex) 600 MG 12 hr tablet Take 1 tablet by mouth in the morning and 1 tablet in the evening.03/10/2023 Active ipratropium (Atrovent) 0.02 % nebulizer solution Take 3 mL by nebulization in the morning and 3 mL at noon and 3 mL in the evening and 3 mL before bedtime.07/26/2023ctive loratadine-pseudoephedrine ER (Claritin-D 24-hour) 10-240 MG 24 hr tablet Take 1 tablet by mouth in the morning.Active metoprolol succinate XL (Toprol-XL) 50 MG 24 hr tablet Take 1 tablet by mouth in the morning and 1 tablet before bedtime.Active Roflumilast 500 MCG tablet Take 1 tablet by mouth in the morning.08/02/2023ctive sacubitril-valsartan (Entresto) 49-51 MG tablet every 12 (twelve) hoursActive atorvastatin (Lipitor) 10 MG tablet Indications:DyslipidemiaTake 1 tablet (10 mg) by mouth at bedtime 90 tablet ctive sodium chloride 0.9 % nebulizer solution Take 3 mL by nebulization if needed for wheezingActive fluticasone (Flonase) 50 MCG/ACT nasal spray Indications:Seasonal allergic rhinitis due to pollenAdminister 2 sprays into each nostril Daily 16 g 5005/02/2024ctive predniSONE (Deltasone) 10 MG tablet Take 0.5 tablets (5 mg) by mouth Daily07/05/2024ctive azithromycin (Zithromax) 250 MG tablet 08/27/2024ctive esomeprazole (NexIUM) [address] capsule Indications:Gastroesophageal reflux disease without esophagitisTake 1 capsule (40 mg) by mouth in the morning and 1 capsule (40 mg) before bedtime. 180 capsule 5Active lamoTRIgine (LaMICtal) 25 MG tablet Indications:Major depressive disorder, recurrent episode, moderate (HCC)TAKE 2 TABLETS(50 MG) BY MOUTH AT BEDTIME 60 tablet 503/13/2025Active aztreonam lysine (CAYSTON) 75 MG nebulizer solution Take by nebulization Add 1 mL of sterile respiratory saline to openned vial, recap, swirl, then immediately add to nebulizerActive FLUoxetine (PROzac) 20 MG capsule Indications:Major depressive disorder, recurrent episode, moderate (HCC)Take 1 capsule (20 mg) by mouth Daily 30 capsule 5Active aspirin 81 MG EC tablet Take 81 mg by mouth DailyActive rOPINIRole (Requip) 0.5 MG tablet Indications:Restless legs syndrome (RLS)TAKE 1 TABLET(0.5 MG) BY MOUTH AT BEDTIME 90 tablet 5Active LORazepam (Ativan) 1 MG tablet Indications:Generalized anxiety disorderTake 1 tablet (1 mg) by mouth in the morning and 1 tablet (1 mg) at noon and 1 tablet (1 mg) in theevening and 1 tablet (1 mg) before bedtime. 120 tablet 5Active Active Problems ProblemNoted DateDiagnosed DateRestless legs syndrome (RLS)03/26/2025 Assessment & Plan (03/26/2025 1:54 PM EDT): Recent symptoms and start requip. Chronic gfggyvtefr45/01/2025urrent exzhgy0803/05/2025Hypercholesterolemia 03/05/2025Other chronic pain03/05/2025Raynaud's phenomenon without gangrene 03/05/2025Seasonal ijohlaimt44/01/2025Severe chronic obstructive pulmonary krdhnia9703/05/2025Medicare annual wellness visit, iisnjzbyfq73/20/2025 Assessment & Plan (09/24/2024 1:59 PM EST): Due for labs. Discussed proper diet and regular aerobic exercise. Need aerobic exercise 5-6 days a week for 30 minutes at a time. Smaller portions and limit total calories. Cologuard normal December 2021. Tetanus every 10 years. Advised not to smoke. Current chronic use of systemic bkufiird43/20/2025Pulmonary hypertension 09/24/2024 Assessment & Plan (09/24/2024 2:01 PM EST): Follow with specialists. Chronic dysfunction of right eustachian tube09/24/2024 Assessment & Plan (09/24/2024 2:01 PM EST): Continued symptoms and no improvement with flonase. Refer to ENT. May-Thurner kqtntkeg43/31/2024 Assessment & Plan (07/05/2024 1:37 PM EDT): Requests closer vascular surgeon and refer. Major depressive disorder, recurrent episode, /28/2024 Assessment & Plan (03/26/2025 1:54 PM EDT): Symptoms tolerable with medication. Assessment & Plan (07/05/2024 1:37 PM EDT): Symptoms improved with medication change and continue. Assessment & Plan (05/30/2024 1:55 PM EDT): Continued symptoms and add prozac in addition to lamictal. Warned will take 2-3 weeks to notice improvement in mood. Assessment & Plan (05/02/2024 2:10 PM EDT): Symptoms worse and resume lamictal. Seasonal allergic rhinitis due to niiddq3603/29/2024 Assessment & Plan (05/30/2024 1:55 PM EDT): Symptoms controlled with medication and continue. Assessment & Plan (05/02/2024 2:10 PM EDT): Symptoms controlled with medication and continue. Assessment & Plan (03/29/2024 11:38 AM EDT): Symptoms controlled with medication and continue. Tinnitus of right ear03/12/2024 Assessment & Plan (03/12/2024 4:36 PM EDT): Reports tinnitus, intermittent, but more or less daily for past 2-3 weeks. Her tinnitus started after she was put on Zosyn for pseudomonas pneumonia. Patient denies hearing loss but feels her ear pops every now and then. I suspect this could be antibiotic induced tinnitus, she has three more days of Zosyn which she cancomplete. Patient was told to call office if she has persistent symptoms after she has finished herabx. If she has persistent symptoms, she will need to be seen by ENT. Chronic respiratory failure with /15/2024 Assessment & Plan (09/24/2024 2:00 PM EST): Follow with specialists. Visual iwaqmftytll76/14/2024Venous aztwfoqjyfcgu49/24/2024 Assessment & Plan (12/28/2023 1:30 PM EDT): Edema unchanged and likely related to venous insufficiency. Not responding to diuretics and CHF well controlled. Continue compression. Check venous reflux studies and refer to vascular. Ptrxdtxikwpr47/24/2024Edema of both legs12/28/2023 Assessment & Plan (12/28/2023 1:29 PM EDT): Edema unchanged and likely related to venous insufficiency. Not responding to diuretics and CHF well controlled. Continue compression. Check venous reflux studies and refer to vascular. Peripheral vascular wfmqlls5212/28/2023ilateral primary osteoarthritis of hip 12/28/2023Heart failure with improved ejection fraction (HFimpEF)12/28/2023 Assessment & Plan (03/26/2025 1:54 PM EDT): Edema stable and continue medication. Refer to closer cardiology. Assessment & Plan (09/24/2024 2:00 PM EST): Edema stable and recent echo normal. Follow with cardiology. Assessment & Plan (05/30/2024 1:56 PM EDT): Edema stable and recent echo normal. Follow with cardiology. Assessment & Plan (05/02/2024 2:10 PM EDT): Edema stable and recent echo normal. Follow with cardiology. Assessment & Plan (03/29/2024 11:38 AM EDT): Edema unchanged and elevate legs PRN. Follow with cardiology. DDD (degenerative disc disease), dpefpd2912/28/2023GAD (generalized anxiety disorder)12/28/2023 Assessment & Plan (03/26/2025 1:53 PM EDT): Symptoms tolerable with medication. Use ativan PRN. Assessment & Plan (08/22/2024 9:32 AM EST): Increased symptoms and frequent panic attacks. Increase prozac and warned will take 2-3 weeks to notice improvement in mood. Stop ativan and try xanax PRN. Assessment & Plan (07/05/2024 1:37 PM EDT): Symptoms improved with medication change and continue. Use ativan PRN. Assessment & Plan (05/30/2024 1:56 PM EDT): Continued symptoms and add prozac in addition to lamictal. Warned will take 2-3 weeks to notice improvement in mood. Use ativan PRN. Assessment & Plan (05/02/2024 2:09 PM EDT): Symptoms worse and resume lamictal. Use ativan PRN. Assessment & Plan (03/29/2024 11:37 AM EDT): Symptoms stable and use ativan PRN. Kjcldnlivfkx63/24/2024ge-related osteoporosis without current pathological imcbirri36/20/2024Nonischemic ovhirssihsrgkn51/28/2021 Assessment & Plan (09/24/2024 2:01 PM EST): Follow with cardiology. Assessment & Plan (03/29/2024 11:39 AM EDT): Follow with cardiology. Osxwuvwwndsfgs42/22/2018 Assessment & Plan (03/26/2025 1:52 PM EDT): Symptoms stable and follow with pulmonology. Assessment & Plan (09/24/2024 2:00 PM EST): Symptoms stable and follow with pulmonology. Assessment & Plan (07/05/2024 1:35 PM EDT): Symptoms worse and repeat prednisone. Follow with pulmonology. Assessment & Plan (05/02/2024 2:09 PM EDT): Symptoms worse and repeat prednisone. Follow with pulmonology. Assessment & Plan (03/29/2024 11:37 AM EDT): Breathing stable and follow with pulmonology. Chronic respiratory failure with qznzpta9711/10/2016 Assessment & Plan (03/26/2025 1:53 PM EDT): Follow with specialists. Assessment & Plan (09/24/2024 2:00 PM EST): Follow with specialists. Essential pnoaorkkigth71/24/2013 Assessment & Plan (03/29/2024 11:37 AM EDT): BP controlled and monitor PRN. GERD (gastroesophageal reflux disease)09/28/2012 Assessment & Plan (03/29/2024 11:38 AM EDT): Symptoms controlled with nexium and continue. Resolved Problems ProblemNoted DateDiagnosed DateResolved LyxfEhfamfw69hronic systolic heart dmbxzgm69Pneumonia due to Pseudomonas jwikdywemm20cute suppurative otitis media Impacted cerumen of right ear Encounters DateTypeDepartmentCare TcmpYqapwflccry26/14/2025 1:30 PM EDTProcedure Visit [facility] [address] [place] [id number] Luis Jaime, PREET Dermatophytosis of nail (Primary Dx); Dystrophic nail; Pain around toenail, right foot; Pain around toenail, left foot06/18/2025amboo flowsheet [facility] [address] [place] [address] Luis Jaime DPM 06/18/20255827Ekcfvd11/19/2025Results Follow-Up [facility] [address] [place] [address] Luiz Milner MD Cologuard?? colon cancer hunoxlaxo27/05/2025Telephone [facility] [address] [place] [address] Luiz Milner MD from Last 3 Months Immunizations ImmunizationAdministration DatesNext DueABRYSVO - Respiratory syncytial virus (RSV), vaccine, bivalent, protein subunit RSV prefusion F, diluent reconstituted, 0.5 mL, PF08/10/2023Influenza, High Dose Seasonal, Preservative Free07/25/2019,07/08/2017Influenza, High-dose Seasonal, Quadrivalent, Preservative Free07/09/2020Influenza, Dxxnqewqrbt47/02/2020,07/28/2016Influenza, injectable, quadrivalent, preservative free06/29/2023,06/28/2022,07/27/2021 Influenza, seasonal, ouldtwfaoa24/21/2015Influenza, trivalent, adjuvanted 08/06/2018Pneumococcal Conjugate PCV 13110/10/2015Pneumococcal Polysaccharide HWPJ695509/07/2016,11/09/2012,05/20/2008Tdap110/10/2015 Family History Medical HistoryRelationNameCommentsHeart diseaseBrotherHypertensionBrother DiabetesFatherHeart diseaseFatherHypertensionFatherOtherMotherVaricose Veins RelationNameStatusCommentsBrotherFatherMother Social History Tobacco UseTypesPacks/DayYears UsedDateSmoking Tobacco: Every DayCigarettes Passive Smoke Exposure: Current Tobacco Cessation:Ready to Q uit: Not Asked; Counseling Given: Not Answered Alcohol UseStandard Drinks/WeekCommentsNever0 (1 standard drink = 0.6 oz pure alcohol)PHQ-2AnswerDate RecordedPatient Health Questionnaire-2 Hpruf397 CommentsUnknownSex and Gender InformationValueDate RecordedSex Assigned at BirthNot on fileLegal EjoUilzfk32/15/2023 6:54 PM EDTGender IdentityNot on fileSexual OrientationNot on file Last Filed Vital Signs Vital SignReadingTime TakenCommentsBlood Oczwjaqe771/60003/26/2025 1:22 PM EDT Pcuuf898803/26/2025 1:22 PM AMVMgcalougomv52.9 ??C (96.6 ??F)03/26/2025 1:22 PM EDTRespiratory Faih3707 1:22 PM EDTOxygen Ypmilnmbhp76%03/26/2025 1:22 PM EDTInhaled Oxygen Concentration--Dxkptn50.1 kg (106 lb)06/18/2025 1:27 PM EDT Eianou813.9 cm (5' 1 )06/18/2025 1:27 PM EDTBody Mass Index20.031 1:27 PM EDT Plan of Treatment DateTypeDepartmentCare Team (Latest Contact Info)Ikdznbwaiyz93/16/2026 1:15 PM ESTProcedure Visit [facility] [address] [place] [address] Luis Jaime DPSupriya [address] [place], [place] [id number] Health MaintenanceDue DateLast DoneCommentsCT Irwfbzhhozqz1952Colonoscopy 1952FIT1952FOBT1952 8952Wzurroqnzpnva1952OVID-19 Vaccine ( season)502/03/2025, 07/23/2023, 07/01/2022, Additional history existsInfluenza Vaccine (#1)51, 06/28/2022, 07/27/2021, Additional history existsMedicare Annual Wellness (AWV)09/24/2025 09/24/20240539Vjheapcwf08/17/42405302/19/2025, 02/19/2025, 02/14/2021, Additional history existsColorectal Cancer Vauwntetn04/05/2028FIT-DNA8004/09/2025, 12/04/2021, 05/15/2018Pneumococcal Vaccine: 65+ WrjgsBtqsigjdo41/03/2017, 08/09/2016, 11/09/2012, Additional history exists Procedures Procedure NamePriorityDate/TimeAssociated DiagnosisCommentsLAB COLOGUARD?? COLON CANCER RBETEAQosyjtg84/05/2025 3:00 PM EDT Colon cancer screening from Last 3 Months Results * Cologuard?? colon cancer screening (04/09/2025 3:00 PM EDT)ComponentValueRef RangeTest MethodAnalysis TimePerformed AtPathologist SignatureNONINV COLON CA DNA+OCC BLD SCRN STL-APNSzkfajxtMbdekunm38/19/2025 1:29 AM EDTEXWorldcast Inc (CLIA #:[id number])Comment: The Cologuard Plus (TM) test was performed on this specimen. NEGATIVE TEST RESULT. A negative (normal) Cologuard Plus result means the patient has a dnhr-ppee-cdsvjyb chance of having colorectal cancer (CRC) or advanced precancer (polyps or lesions that could become cancer). Negative is the normal value (reference range) for this assay. Guidelines recommend screening again 3 years after a negative Cologuard Plus result. Continued screening increases the chance of finding CRC early or preventing it entirely. A clinical validation study showed the Cologuard Plus test is effective at ruling out CRC. Out of every 10,000 patients testing negative, approximately 2 will be falsely reassured that they do not have CRC, and out of every 100 patients testing negative, approximately 7 patients will be falsely reassured they do not have advanced precancer. TEST DESCRIPTION: The Cologuard Plus test is a multi-target stool DNA (mt-sDNA) test that analyzes DNA and hemoglobin biomarkers in stool. It uses a proprietary algorithm to qualitatively detect CRC and advanced precancer. It is FDA-approved and indicated for use in adults 45 years or older at average risk for CRC. A positive (abnormal) result should be followed by a colonoscopy. Patients with a negative (normal)result should screen again in 3 years. False positive and false negative results may occur. The USPSTF recommends the Cologuard test as a CRC screening option. Their modeling estimates that screeningwith the test every 3 years from ages 45-85 could prevent up to 73% of CRC and avoid up to 85% of CR C deaths. A 18,911-patient clinical trial found the Cologuard Plus test effectively detects CRC and precancer. The study found the test was 95% sensitive for CRC, 43% sensitive for advanced precancer, and had a 91% specificity (Cologuard Plus Clinician Brochure. [place]. [place], [place].). Visit [email or web address]/[email or web address]-[email or web address] for more test information, references, warnings, and precautions. Specimen (Source)Anatomical Location / LateralityCollection Method / Volume Collection TimeReceived TimeStool specimen (specimen)04/09/2025 3:00 PM EDT 04/23/2025 2:11 PM EDT Narrative Authorizing ProviderResult TypeResult StatusMarc Alf SAHNI [facility]NOST[facility] ORDERABLESFinal ResultPerforming OrganizationAddressCity/State/ZIP CodePhone Number .XAPrismaStar (CLIA #:[id number]) [address] [address] [phone] [place] (CLIA #:[id number]) [address] [id number] from Last 3 Mon[place] [phone] Care Teams Team MemberRelationshipSpecialtyStart DateEnd Date Luiz Milner MD [address] [place] [address] [facility] - [facility] Luiz Milner MD [address] [place] [address] PCP - [facility]CO [facility]10/12/24
--- OUTSIDE RECORDS SUMMARY | 2025-07-10 13:24 | XMS_ITS | Encounter Summary ---
Author Organization [facility] Address [address] [place] [address] Care Team Providers Care Publication Manager Name Role Phone Luiz Milner MD Primary Care Provider [phone] Luiz Milner MD Unavailable Encounter Details DateTypeDepartmentCare Team (Latest Contact Info)Ppirjujphaa90/26/2024Clinisync Result Encounter [facility] Department Unsolicited Provider, Generic External Data Social History Tobacco UseTypesPacks/DayYears UsedDateSmoking Tobacco: Every DayCigarettes Passive Smoke Exposure: CurrentAlcohol UseStandard Drinks/WeekCommentsNever0 (1 standard drink = 0.6 oz pure alcohol)PHQ-2AnswerDate RecordedPatient Health Questionnaire-2 Ucfqg193CommentsUnknownSex and Gender InformationValueDate RecordedSex Assigned at BirthNot on fileLegal SexFemale 11/17/2022 6:54 PM EDTGender IdentityNot on fileSexual OrientationNot on file documented as of this encounter Functional Status * Over the past 2 weeks, how often have you been bothered by any of the following problems?QuestionAnswerDate of AssessmentAuthorLittle interest or pleasure in doing thingsNot at all09/24/2024 1:00 PM Edna Mckinnon MA Feeling down, depressed, or hopelessNot at all09/24/2024 1:00 PM Edna Mckinnon MAPatient Health Questionnaire-2 Ahcee558 1:00 PM Edna Mckinnon MA * QuestionAnswerDate of AssessmentAuthorTrouble falling or staying asleep, or sleeping too muchNot at all09/24/2024 1:00 PM Edna Mckinnon, MAFeeling tired or having little energyNot at all09/24/2024 1:00 PM Edna Mckinnon, MAPoor appetite or overeatingNot at all09/24/2024 1:00 PM Edna Mckinnon, MAFeeling bad about yourself - or that you are a failure or have let yourself or your family downNot at all09/24/2024 1:00 PM Edna Mckinnon, MATrouble concentrating on things, such as reading the newspaper or watching television Not at all09/24/2024 1:00 PM Edna Mckinnon, MAMoving or speaking so slowly that other people could have noticed? Or the opposite - being so fidgety or restless that you have been moving around a lot more than usual.Not at all 09/24/2024 1:00 PM Edna Mckinnon, MAThoughts that you would be better off or hurting yourself in some wayNot at all09/24/2024 1:00 PM Edna Mckinnon, ANGELatient Health Questionnaire-9 Bbaez223 1:00 PM Edna Mckinnon MA documented as of this encounter Plan of Treatment DateTypeDepartmentCare Team (Latest Contact Info)Qhaevwoeetx38/16/2026 1:15 PM ESTProcedure Visit [facility] [address] [place] [address] Luis Jaime DPM [address] [place], [place] [phone] documented as of this encounter Procedures Procedure NamePriorityDate/TimeAssociated DiagnosisCommentsCTA ABD/PELV W IVCON 03/30/2024 11:17 AM EDT documented in this encounter Results * CTA ABD/PELV W IVCON (03/30/2024 11:17 AM EDT)Anatomical RegionLaterality ModalityOtherSpecimen (Source)Anatomical Location / LateralityCollection Method / VolumeCollection TimeReceived Time03/30/2024 11:17 AM EDT Narrative 03/30/2024 11:40 AM EDT * * *Final Report* * * DATE OF EXAM: Mar 30 2024 11:17AM ?? [facility] ?? 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 R/o MTS or other cause of vein compressive physiology. May-Thurner syndrome TECHNIQUE: ??High-resolution contrast-enhanced helical CT of the abdomen and pelvis was performed timed to the venous phase via 100 and 140 sec delays. 3-D processing was provided. 120 ml of Omnipaque 350 was injected IV during the examination. ??The study was performed without oral contrast. ??The patient tolerated the injection without complications. Dose-Length Product (DLP): 546 mGy*cm. CT Dose Reduction Employed: Automated exposure control (AEC) COMPARISON: None. RESULT: Limitations: ??Venous phase imaging limits evaluation of arterial structures VASCULAR FINDINGS: Images of the aorta demonstrate diffuse atherosclerotic change. Poor opacification of the IVC, though the IVC appears patent. ??The left common iliac vein appears moderately distended. ??Decompressed between the right common iliac artery and vertebral body. ??No obvious filling defects within the iliac and femoral veins. NONVASCULAR FINDINGS: Lower chest: Diffuse emphysematous changes. Liver: Normal morphology. ??Numerous hepatic cysts. Bile ducts: Not dilated. Gallbladder: Surgically absent Pancreas: Normal. Spleen: Normal size. ??No mass. Adrenal glands: Within normal limits. Kidneys: No mass. No hydronephrosis. Ureters: Normal. Bladder: Normal. Retroperitoneum: No lymphadenopathy. Peritoneum: No ascites. Mesentery: Normal. Stomach: Not distended. Small bowel: Not distended. Colon: Not distended. Appendix: not identified. Extraperitoneal Pelvis: No lymphadenopathy. Uterus: Absent. Ovaries: No adnexal mass Abdominal wall: Normal. Bones: No acute fractures or destructive bone lesion. IMPRESSION: Poor opacification of the venous system, possibly due to contrast bolus timing. ??There appears to be moderate to severe compression of the left common iliac vein between the right common iliac artery and vertebral body, raising concern for May Thurner syndrome. Transcribe Date/Time: Mar 30 2024 11:29A Dictated by: MARIA TERESA AGOSTO MD This examination was interpreted and the report reviewed and electronically signed by: MARIA TERESA AGOSTO MD on Mar 30 2024 11:38AM ??EST Thank you for allowing us to participate in the care of your patient. Should there be any questions regarding this interpretation, please call [phone]. If you are unable to reach us at the number above, please feel free to contact [facility] at [phone]. [id number]^[email or web address]^SI^ACN Procedure Note Radiology, Radiologist, - 03/30/2024 * * *Final Report* * * DATE OF EXAM: Mar 30 2024 11:17AM [facility] 0311 - CTA ABD/PELV W IVCON [...] No acute fractures or destructive bone lesion. IMPRESSION: Poor opacification of the venous system, [...] any questions regarding this interpretation, please call [phone]. If you are unable to reach us at the number above, please feel free to contact [facility] at [phone]. [id number]^[email or web address]^SI^ACN Authorizing ProviderResult TypeResult StatusGeneric External Data Provider CLINISYNC IMAGINGFinal Result documented in this encounter Visit Diagnoses Not on filedocumented in this encounter Care Teams Team MemberRelationshipSpecialtyStart DateEnd Date Luiz Milner MD [address] [place] [address] PCP - GeneralFamily Medicine09/28/23 Luiz Milner MD [address] [place] [address] PCP - [facility]10/12/24documented as of this encounter
--- OUTSIDE RECORDS SUMMARY | 2025-07-10 13:24 | XMS_ITS | Clinical Summary ---
Author Organization [facility] Address [address], [address] [place] [address] Care Team Providers Care Procurement Officer Name Role Phone Luiz Milner MD Primary Care Provider + Allergies Active AllergyReactionsCriticalityNoted UhfgLgpdsagdZjdratlecm80/26/2012 Rash. Trouble breathing. Can tolerate 250mg's but not 500mg's SoqffqxsfbqkkHqlyNfb47/10/2018ErythromycinNausea And AdgkjrlhFpd89/26/2012 Stwcgfmcpa22/10/1398TtabozowkyapZiprAnp74/26/5903Mxqyaihryppaci74/26/2012Rondec 07/31/20125661Evstbfrtve48/26/3945MxxlwkIyqtdvxp24/26/2012 Medications MedicationSigDispense QuantityRefillsLast FilledStart DateEnd DateStatus Loratadine-Pseudoephedrine (CLARITIN-D 24 HOUR PO) Take 1 tablet by mouth daily.Active Roflumilast (DALIRESP) 500 MCG tablet Take 1 tablet by mouth dailyActive albuterol (PROVENTIL HFA) 108 (90 BASE) MCG/ACT inhaler Inhale 2 puffs into the lungs every 6 hours as needed for Wheezing or Shortness of Breath. 1 Inhaler ctive LORazepam (ATIVAN) 0.5 MG tablet Take 2 tablets by mouth 4 times daily.Active Calcium Carb-Cholecalciferol (CALCIUM CARBONATE-VITAMIN D3 PO) Take 1 tablet by mouthActive ipratropium-albuterol (DUONEB) 0.5-2.5 (3) MG/3ML SOLN nebulizer solution INHALE THE CONTENTS OF 1 VIAL BY NEBULIZER QID PRF SHORTNESS OF BREATH3 07/25/2017Active vitamin E (VITAMIN E-400) 400 UNIT capsule Take 1 capsule by mouthActive azithromycin (ZITHROMAX) 250 MG tablet TAKE ONE TABLET BY MOUTH DAILY 30 tablet 11/16/2017Active esomeprazole Magnesium (NEXIUM) 40 MG PACK Take 1 packet by mouth dailyActive budesonide-formoterol (SYMBICORT) 160-4.5 MCG/ACT AERO Inhale 2 puffs into the lungs 2 times dailyActive Vfkdcoi-Cgmwnjidpdy-Qyeemtaznu (BREZTRI AEROSPHERE IN) Inhale into the lungsActive sacubitril-valsartan (ENTRESTO) 49-51 MG per tablet Take 1 tablet by mouth 2 times dailyActive empagliflozin (JARDIANCE) 10 MG tablet Take 1 tablet by mouth dailyActive guaiFENesin (MUCINEX) 600 MG extended release tablet Take 2 tablets by mouth 2 times dailyActive ipratropium (ATROVENT) 0.02 % nebulizer solution Take 2.5 mLs by nebulization 4 times dailyActive lamoTRIgine (LAMICTAL) 25 MG tablet Take 1 tablet by mouth dailyActive metoprolol succinate (TOPROL XL) 50 MG extended release tablet Take 1 tablet by mouth dailyActive OXYGEN Inhale into the lungsActive predniSONE (DELTASONE) 10 MG tablet Take 1 tablet by mouth dailyActive SODIUM CHLORIDE, EXTERNAL, 0.9 % SOLN Apply topicallyActive Active Problems ProblemNoted DateDiagnosed DateEmphysema of lung05/03/2013Nicotine dependence 09/28/2012COPD (chronic obstructive pulmonary disease)09/28/2012GERD (gastroesophageal reflux disease)09/28/2012HTN (hypertension)09/28/2012HLD (hyperlipidemia)09/28/2012 Encounters DateTypeDepartmentCare RpukItjzobnjzoy72/19/2025bstract [facility] RFL DEPT Luiz Milner MD 05/23/2025bstract [facility] Ear, Nose [facility] Throat [address] [place] [address] Nadia Cramer Jr., MD from Last 3 Months Immunizations ImmunizationAdministration DatesNext DuePneumococcal, PPSV23, PNEUMOVAX 23, (age 2y+), SC/IM, 0.5mL11/09/2012,05/20/2008 Family History Medical HistoryRelationNameCommentsHeart DiseaseBrother 1davidHigh Cholesterol Brother 2markCoronary Art DisFatherDiabetesFatherHeart DiseaseFatherArthritis MotherRelationNameStatusCommentsBrother 1davidAliveBrother 2markAliveFather DeceasedMotherAlive Social History Tobacco UseTypesPacks/DayYears UsedDateSmoking Tobacco: Every DayCigarettes0.850 Smokeless Tobacco: Former Tobacco Cessation:Ready to Q uit: Not Asked; Counseling Given: Not Answered Alcohol UseStandard Drinks/WeekCommentsNo0 (1 standard drink = 0.6 oz pure alcohol)CommentsNoSex and Gender InformationValueDate RecordedSex Assigned at BirthNot on fileLegal WibDxoeef20/10/2013 10:54 AM ESTGender IdentityNot on fileSexual OrientationNot on file Last Filed Vital Signs Vital SignReadingTime TakenCommentsBlood Hkgfhhvk470/7411 2:16 PM EST Uashr090107/16/2024 2:16 PM GSJDlftfktqgah35.2 ??C (97.1 ??F)07/16/2024 2:16 PM ESTRespiratory Xcrk853003/28/2018 12:53 PM EDTOxygen Evtptwzvrb42%03/28/2018 12:25 PM EDTInhaled Oxygen Concentration--Qjsbxx18.7 kg (103 lb)07/16/2024 2:16 PM EST Cmksde778.9 cm (5' 1 )07/16/2024 2:16 PM ESTBody Mass Index19.4607/16/2024 2:16 PM EST Plan of Treatment Health MaintenanceDue DateLast DoneCommentsDepression Ndflqy0803/09/1964Hepatitis C duoxev5103/09/19705992Rcmgtlowftr25/05/1997FIT/FOBT: Average risk1997 Sigmoidoscopy/CT wlqfzckilmgt37/05/1997Shingles vaccine (1 of 2)2002Lipids 10/25/Lung Cancer Screening &/or Ksdbqmshrl91/15/202204/, 08/15/2019, 07/11/2018, Additional history existsAnnual Wellness Visit (Medicare)4Colorectal Cancer Rsnanb1812/04/2024Fecal-DNA (Cologuard): Average risk504/09/2021Flu vaccine (#1)510/, 06/28/2022, 07/27/2021, Additional history existsCOVID-19 Vaccine ( season)/03/2025, 07/23/2023, 07/01/2022, Additional history exists DTaP/Tdap/Td vaccine (2 - Td or Tdap)Breast cancer screen , 02/14/2021, 04/11/2019, Additional history exists Pneumococcal 50+ years UukqfunJxlclorxm82/03/2017, 08/09/2016, 11/09/2012, Additional history existsDEXA (modify frequency per FRAX score)Completed 09/10/2019Respiratory Syncytial Virus (RSV) or age 60 yrs+Completed 08/10/2023Hepatitis A vaccineAged OutNo longer eligible based on patient's age to complete this topicHepatitis B vaccineAged OutNo longer eligible based on patient's age to complete this topicHib vaccineAged OutNo longer eligible based on patient's age to complete this topicMeningococcal (ACWY) vaccineAged OutNo longer eligible based on patient's age to complete this topicMeningococcal B vaccineAged OutNo longer eligible based on patient's age to complete this topic Polio vaccineAged OutNo longer eligible based on patient's age to complete this topic Procedures Procedure NamePriorityDate/TimeAssociated DiagnosisCommentsMAM ALMA DELIA DIGITAL SCREEN DQTQDAWJQQtlyfdn16/17/2025 11:41 AM EDT Encounter for screening mammogram for breast cancer LIPID EWKVLRzpotoa61/20/2012 7:15 AM EST from Last 3 Months or Most Recently Relevant to Health Maintenance Results * LACHELLE ALMA DELIA DIGITAL SCREEN BILATERAL (02/19/2025 11:41 AM EDT)Anatomical Region LateralityModalityBreastBilateralMammographySpecimen (Source)Anatomical Location / LateralityCollection Method / VolumeCollection TimeReceived Time 02/20/2025 5:47 PM EDT Impressions 02/20/2025 5:56 PM EDT No evidence of malignancy seen in either breast. Advise annual screening mammography. BREAST DENSITY SUMMARY C: The breasts are heterogeneously dense which may obscure small masses. Breast tissue can be either dense or not dense. Dense tissue makes it harder to find breast cancer on a mammogram and also raises the risk of developing breast cancer. Your breast tissue is ??DENSE. In some people with dense tissue, other imaging tests in addition to mammogram may help find cancers. Talk to your health care provider about breast density, risks ??for breast cancer, and your individual situation. BI-RADS 2 BIRADS: BIRADS - CATEGORY 2 Benign Findings. ??Normal interval follow-up is recommended in 12 months. OVERALL ASSESSMENT - BENIGN A letter of notification will be sent to the patient regarding the results. The [employer] recommends annual mammograms for women 40 years and older. Performing Facility: [facility] [address] [place] [address]. [address] [address] Narrative 02/20/2025 5:56 PM EDT EXAMINATION: SCREENING DIGITAL BILATERAL MAMMOGRAM WITH TOMOSYNTHESIS, 02/19/2025 TECHNIQUE: Screening mammography was performed with tomosynthesis including MLO and CC views of the bilateral breasts. Computer aided detection was used for the interpretation of this exam. COMPARISON: 14 February 2021; 10 April 2019 HISTORY: Screening. No family history of breast cancer. ??8 year history of oral contraception. ??No HRT therapy. ??Prior bilateral breast biopsies, benign. ??TC score 17.45 FINDINGS: Positioning was limited due to the patient's body habitus. ??Patient had difficulty cooperating with the examination; is on full-time oxygen. BREAST COMPOSITION: The breasts are heterogeneously dense, which may obscure small masses. Bilateral breasts are composed of heterogeneously dense parenchyma. ??No skin thickening, nipple contour changes, suspicious calcifications, suspicious masses, areas of architectural distortion or significant interval changes are noted. ??Stable benign-appearing calcifications are noted in both breasts. Authorizing ProviderResult TypeResult StatusPhoenix Indian Medical Center Bennett Milner MDIMG MAMMOGRAPHY ORDERABLESFinal Result * Lipid panel (10/25/2011 7:15 AM EST)ComponentValueRef RangeTest MethodAnalysis TimePerformed AtPathologist UzxaljghwWatkjrcdelx626<200 mg/dLMHPN LABComment: ? Cholesterol Normals: <200 Desirable ?? 200-239 ??Borderline high >au=418 High ? HDL60>40 mg/dLMHPN LABComment: ? HDL Normals: <40 Higher risk >or=60 Desirable ? LDL Xxyzwtgvlsc15<100 mg/dLMHPN LABComment: ? LDL Normals: <100 Optimal ?? 100-129 ?? Near to above optimal ?? 130-159 ?? Borderline high ?? 160-189 ?? High >gv=965 Very high ? Direct (measured) LDL and calculated LDL are not interchangeable tests. Chol/HDL Ratio2.8<5.0MHPN LABComment:Vtmpmrzbqnkoo18<150 mg/dLMHPN LABComment: ? Triglyceride Normals: <150 Normal ?? 150-199 ?? Borderline high >199 High ? Performed at [address] [address] VLDLNOT REPORTED1 - 36 mg/dLMHPN LABSpecimen (Source)Anatomical Location / LateralityCollection Method / VolumeCollection TimeReceived Time10/25/2011 7:15 AM EST10/25/2011 12:41 PM EST Narrative Authorizing ProviderResult TypeResult StatusBhgiacomo R Narra MDCHEMISTRY ORDERABLESFinal ResultPerforming OrganizationAddressCity/State/ZIP CodePhone Number [facility] LAB from Last 3 Months or Most Recently Relevant to Health Maintenance Insurance Care Teams Team MemberRelationshipSpecialtyStart DateEnd Date Luiz Milner MD [address] [place] [address] PCP - GeneralFamily Medicine02/19/25
--- OUTSIDE RECORDS SUMMARY | 2025-07-10 13:25 | XMS_ITS | Encounter Summary ---
Author Organization [facility] tem Address [id number] [place] [address] Care Team Providers Care Pacs Specialist Name Role Phone Luiz Milner MD Primary Care Provider [phone] Encounter Details DateTypeDepartmentCare Team (Latest Contact Info)Cnvzxfpfmgy52/03/2025[facility]phone [facility] [address] [place] [phone] Kendra Rivera RMA Social History Tobacco UseTypesPacks/DayYears UsedDateSmoking Tobacco: Every DayCigarettes0.556 Smokeless Tobacco: Never Comments:She is in the quit now program Alcohol UseStandard Drinks/WeekCommentsNo0 (1 standard drink = 0.6 oz pure alcohol)AUDIT-CAnswerDate RecordedQ1: How often do you have a drink containing alcohol?Monthly or less09/23/2023Q2: How many drinks containing alcohol do you have on a typical day when you are drinking?1 or Q3: How often do you have six or more drinks on one occasion?Never09/23/2023HQ-2AnswerDate Recorded Total Dyeud8114ChildcareAnswerDate RpzimiztHzkauejulRedmupb50/12/2019 EmploymentAnswerDate KeentumtCfbbdzktmnRfxaqfx66/12/2019Hunger ScreeningAnswer Date RecordedWithin the past 12 months we worried whether our food would run out before we got money to buy more.Never True09/22/2023Within the past 12 months the food we bought just didn't last and we didn't have money to get more.Never True4Purpose - LifeAnswerDate RecordedPurpose and direction in life Egrkkin45/13/2021CommentsNoSex and Gender InformationValueDate Recorded Sex Assigned at VonrjZidgnr49/10/2021 11:48 AM ESTLegal SrgPtqnrs99/06/2015 11:28 AM EDTGender XygnhjefNtihos74/10/2021 11:48 AM ESTSexual Orientation Yfmzffyo79/10/2021 11:48 AM ESTdocumented as of this encounter Miscellaneous Notes * Telephone Encounter - MASHA Cardenas - 07/08/2025 9:09 AM EST Histology Teacher called patient and left voicemail informing her that our office received the re-enrollment form for [facility], policy writer informed patient to stop in office sometime this week to complete her portion of the enrollment form, patient was informed that she will need to bring most recent tax return, W-2, last 2 pay stubs, 1099, SSI award letter, etc. documented in this encounter Plan of Treatment DateTypeDepartmentCare Team (Latest Contact Info)Kqmsbeiuaox48/13/2025 1:00 PM ESTAppointment [facility] [address] [facility] [phone] Laura Mac, DO [address] [address] 08/15/2025 3:[address] [facility] [address] [place] [phone] Laura Mac, DO [address] [id number] documented as of this encounter Goals GoalPatient Goal TypeAssociated ProblemsRecent ProgressPatient-Stated?Author <enter goal here> GeneralYesMagers, Lourdes Hamlin RN Note: Evaluation of progress towards goal: get back to work documented as of this encounter Visit Diagnoses Not on filedocumented in this encounter Additional Health Concerns AssessmentNoted TimePHQ-9 Depression Total Score: 11:51 AM EST documented as of this encounter Care Teams Team MemberRelationshipSpecialtyStart DateEnd Date Luiz Milner MD PCP - GeneralFamily Medicine05/20/21documented as of this encounter
--- OUTSIDE RECORDS SUMMARY | 2025-07-10 13:25 | XMS_ITS | Clinical Summary ---
Author Organization [facility] Address [address] [place] [address] Care Team Providers Care Electrical Assembler Name Role Phone Luiz Milner MD Primary Care Provider [phone] Angel Riggins MD Unavailable [phone] Allergies Active AllergyReactionsCriticalityNoted DateComments Carbinoxamine-PseudoephedrineOther: See Qmpahhdo00/29/2016CephalexinHives 07/31/2012 Rash. Trouble breathing. Can tolerate 250mg's but not 500mg's Spoke with RN confirmed with pt: Went to ER; pt told not to take keflex again VeerujiphizopOhvwHjc50/25/2018ErythromycinGI DzqpsNvc25/26/2012LevofloxacinRash, GzghouchXpf75/26/2012 Tongue swelling MetaxaloneOther: See Wqdbgnex99/26/3823NrlbuujfnntzdwMkoosuperft62/26/2012 MontelukastOther: See Nkpebegq93/23/2021antoprazoleOther: See CommentsMedium 04/08/20215500FwfoyhgtweQxouutrm84/26/2012 Medications MedicationSigDispense QuantityRefillsLast FilledStart DateEnd DateStatus acetaminophen (TYLENOL) 325 mg tablet Take 650 mg by mouth every 4 hours as needed.05/05/2021ctive albuterol HFA (PROVENTIL HFA, VENTOLIN HFA) 90 mcg/actuation inhaler once daily as needed.09/11/2021ctive calcium carbonate-vitamin D3 1,000 mg-20 mcg (800 unit) tab Take 1 tablet by mouth once daily.Active esomeprazole (NEXIUM) 40 mg capsule Take 40 mg by mouth twice daily.Active levalbuterol (XOPENEX) 1.25 mg/3 mL nebulizer solution four times daily.09/11/2021ctive ipratropium (ATROVENT) 0.02 % nebulizer solution Use 0.5 mg via nebulizer four times daily.Active LORazepam (ATIVAN) 1 mg tablet Take 1 mg by mouth four times daily.07/26/2016Active nitroglycerin (NITRO-BID) 2 % ointment as needed. Raynaud's002/27/2021ctive predniSONE (DELTASONE) 10 mg tablet Take 10 mg by mouth once daily.10/15/2021ctive roflumilast (DALIRESP) 500 mcg tab Take 500 mcg by mouth once daily.09/15/2021ctive Vitamin E, dl, acetate, (VITAMIN E) 400 unit capsule Take 400 Units by mouth once daily.Active sodium chloride (NEBUSAL) 3 % nebulizer solution INHALE CONTENTS OF 1 VIAL VIA NEBULIZER EVERY DAY10/12/2023ctive mmqaguzwhd-qtbryyjr-zgcmlzderd (BREZTRI AEROSPHERE) 160-9-4.8 mcg/actuation HFA aerosol inhaler Inhale 2 Puffs as instructed.08/18/2023ctive fluoxetine HCl (FLUOXETINE ORAL) Take 10 mg by mouth once daily.Active aztreonam lysine (CAYSTON) 75 mg/mL nebulizer solution 75 mg three times a day. 3x daily for 28 days then off for 28 daysActive ASPIRIN CHILD ORAL Take 81 mg by mouth once daily.Active atorvastatin (LIPITOR) 20 mg tablet Take 1 tablet by mouth once daily. 90 tablet /ctive metoprolol succinate ER (TOPROL XL) 50 mg 24 hr tablet Take 1 tablet by mouth two times a day. 180 tablet tive torsemide (DEMADEX) 10 mg tablet TAKE 1 TABLET BY MOUTH DAILY NEEDED 90 tablet tive JARDIANCE 10 mg tablet TAKE ONE TABLET BY MOUTH DAILY 90 tablet 5Active sacubitril-valsartan (ENTRESTO) 49-51 mg tablet Take 1 tablet by mouth two times a day. 180 tablet 3:10 PM EDT15Active sacubitril-valsartan (ENTRESTO) 49-51 mg tablet Take 1 tablet by mouth twice daily. 180 tablet 304Discontinued sacubitril-valsartan (ENTRESTO) 49-51 mg tablet Take 1 tablet by mouth two times a day. 180 tablet 310Discontinued Active Problems ProblemNoted DateDiagnosed DateChronic respiratory failure with hypoxia 12/07/2023Ventricular /03/2024rotein-calorie malnutrition, unspecified fdihrpyx42/27/2023 Encounters DateTypeDepartmentCare ObnySbecixnsegk54/20/2025Refill Cardiology [address] [place], [place] [phone] Angel Riggins MD 06/24/2025Telephone Cardiology [address] [place] [address] Angel Riggins MD Advice Only06/18/2025Refill Cardiology [address] [place], [place] [phone] Angel Riggins MD 06/17/2025Telephone Cardiology [address] [place] [address] Angel Riggins MD 06/13/2025 Patient [facility] [place] [address] Simi Bernardo RPh A Smarter Way to Manage Your Heart Failure Kbdevmmhlgb51/05/2025Refill Cardiology [address] [place] [address] Angel Riggins MD Refill Requestfrom Last 3 Months Family History Medical HistoryRelationCommentsHeart AttackBrotherCABG x 4HeartFatherHeart AttackFatherkilled 2/3 of heartArthritisMotherRelationStatusCommentsBrother FatherDeceasedMotherDeceased Social History Tobacco UseTypesPacks/DayYears UsedDateSmoking Tobacco: Every DayCigarettes Smokeless Tobacco: Never Tobacco Cessation:Ready to Q uit: No; Counseling Given: Not Answered Comments:10-12 cigaretts daily Alcohol UseStandard Drinks/WeekCommentsNot Currently0 (1 standard drink = 0.6 oz pure alcohol)PHQ-2AnswerDate RecordedPHQ-2 nlbno241rea Deprivation IndexAnswerDate RecordedNational Score (1-100), lower number is lower risk75 03/29/2023State Score (1-10), lower number is lower vtbc43003/29/2023ata from: https://www.neighborhoodatlas.[facility]/. Last address used for gwjetdqexdo[address]3CommentsNoSex and Gender Information ValueDate RecordedSex Assigned at RcnomJzkkiz77/23/2022 11:38 AM ESTLegal Sex Llvyja9808/06/2012 9:07 AM ESTGender PllfjqzwGwrfat92/23/2022 11:38 AM ESTSexual HktkrbodntrTzpijjga69/23/2022 11:38 AM EST Last Filed Vital Signs Vital SignReadingTime TakenCommentsBlood Esnwgefz611/55337 3:25 PM EDT Pcjqe989112/11/2024 3:25 PM EDTTemperature--Respiratory Ggtd6699 3:25 PM EDTOxygen Bfyltekegc08%12/11/2024 3:25 PM EDTInhaled Oxygen Concentration-- Mgsygt36.5 kg (107 lb)12/11/2024 3:25 PM EWPXrleti355.2 cm (5' 1.5 )12/11/2024 3:25 PM EDTBody Mass Index19.8904 3:25 PM EDT Plan of Treatment DateTypeDepartmentCare Team (Latest Contact Info)Udntjebodgt89/16/2026 11:00 AM ESTOffice Visit Cardiology [address] [place] [address] DX:Chronic systolic (congestive) heart failure (HCC)10/21/2025 12:30 PM EST Office Visit Cardiology [address] [place] [address] Angel Riggins MD [address] [place] [address] DX:Chronic systolic (congestive) heart failure (HCC)Health MaintenanceDue Date Last DoneCommentsAnnual PCP Team Chronic Disease Visit1970Anxiety Wbvecquwz43/05/1970Depression Diwpzxcbq26/05/1970Hepatitis C Rweidnmtt74/05/1970 CT Xridgorqafpw82/05/7714Azezbbhuxfd63/05/1997Fecal Occult Blood1997 Izhypbpxnadhc98/05/1997Shingrix Vaccine (1 of 2)2002Medicare Annual Wellness Visit03/05/2017Mammogram Hjxnvfxku43/08/2021, 02/14/2021, 04/11/2019, Additional history existsAdvance Directive Pbrvojqwhm30/01/2025 Cologuard (FIT-DNA)/09/2021, 05/15/2018Colorectal Cancer Screening 5Covid-19 Vaccine ( season)502/03/2025, 07/23/2023, 07/01/2022, Additional history existsInfluenza Vaccine (#1), 06/28/2022, 07/27/2021, Additional history existsDTaP,Tdap,Td Vaccine (2 - Td or Tdap)/01/2016Diabetes Gnddwairs20, 10/12/2024, 02/18/2024, Additional history existsLipid Htarxnlew91/03/2025, 05/24/2023, 11/12/2020, Additional history existsPneumococcal Vaccine: 50+ Ljwbbwpct48/03/2017, 08/09/2016, 11/09/2012, Additional history existsBone Density KwkenkxmfMrkqpxmlp75/06/2020RSV BwanizzEiwrwnnbj25/06/2023 Goals GoalPatient Goal TypeAssociated ProblemsRecent ProgressPatient-Stated?Author Blood Pressure < 130/80 Blood Aubrcevh054/118(12/11/2024 3:25 PM EDT)Amelie Anderson, box nailer Procedure NamePriorityDate/TimeAssociated DiagnosisCommentsBASIC METABOLIC PANEL Xfnyapo0603/24/2023 3:19 PM EDT Chronic systolic HF (heart failure) (HCC) from Last 3 Months or Most Recently Relevant to Health Maintenance Results * (ABNORMAL) BASIC METABOLIC PNL (03/24/2023 3:19 PM EDT)ComponentValueRef Range Test MethodAnalysis TimePerformed AtPathologist TbuahuvbxSidhvus718(H)74 - 99 mg/dL03/24/2023 4:26 PM [facility] LABORATORYComment: The [place] [employer] Association (ADA) provides guidance for cutoff values for fasting glucose andrandom glucose. The ADA defines fasting as no [...] Standards of Medical Care in Diabetes 2016, [place] [employer]. Diabetes Care. 2016.39(Suppl 1). BUN6(L)7 - 21 mg/dL03/24/2023 4:26 PM [facility] LABORATORYCreatinine0.49 (L)0.58 - 0.96 mg/dL03/24/2023 4:26 PM [facility] SDLZUTEXYETfpovg634292 - 144 mmol/L03/24/2023 4:26 PM [facility] LABORATORYPotassium4.53.7 - 5.1 mmol/L03/24/2023 4:26 PM [facility] ITMKDVWOYFWfwdqmhm9024 - 105 mmol/L 03/24/2023 4:26 PM [facility] VTFUPEUHRWUF44038 - 30 mmol/L03/24/2023 4:26 PM [facility] LABORATORYAnion Vis376 - 18 mmol/L03/24/2023 4:26 PM [facility] LABORATORYCalcium, Total9.88.5 - 10.2 mg/dL03/24/2023 4:26 PM [facility] LABORATORYEstimated Glomerular Filtration Kqmx270>=60 mL/min/1.73m 03/24/2023 4:26 PM [facility] LABORATORYComment:Estimated Glomerular Filtration Rate (eGFR) is calculated using the 2020 CKD-EPI creatinine equation. This equation utilizes serum creatinine, sex, and age as parameters. The creatinine assay has traceable calibration to isotope dilution-mass spectrometry. Refer to KDIGO guidelines for clinical interpretation. In patients with unstable renal function, e.g. those with acute kidney injury, the eGFRmay not accurately reflect actual GFR.Specimen (Source)Anatomical Location / LateralityCollection Method / VolumeCollection TimeReceived TimeBloodBLOOD SPECIMEN / UnknownVenipuncture / Tuidzva1303/24/2023 3:19 PM EDT03/24/2023 3:19 PM EDT Narrative Authorizing ProviderResult TypeResult StatusAndmaria guadalupe Riggins MDLABORATORYFinal ResultPerforming OrganizationAddressCity/State/ZIP CodePhone Number [facility] [address] [facility] [place] [address], from Last 3 Months or Most Recently Relevant to Health [place] [id number] Care Teams Team MemberRelationshipSpecialtyStart DateEnd Date Luiz Milner MD [address] [place] [address] PCP - GeneralFamily Medicine11/02/21 Angel Riggins MD [address] [place] [address] Primary Staff FpndxrykbAhsnvtaoyn13/8/22
--- OUTSIDE RECORDS SUMMARY | 2025-07-10 13:25 | XMS_ITS | Clinical Summary ---
Author Organization [employer] Address [id number] [place] [address] Care Team Providers Care Legal Billing Specialist Name Role Phone Luiz Milner MD Primary Care Provider [phone] Allergies Active AllergyReactionsCriticalityNoted DateComments Carbinoxamine-Jyuzbifaqemhplf34/29/6326Itsqgjgvphhwj70/25/2018ErythromycinNausea Low09/02/20166271AbumnxitssAzbvg38/19/2016 Spoke with RN confirmed with pt: Went to ER; pt told not to take keflex again SqqfqqcvvjplAitelkaj40/19/2016 Tongue swelling Uawjmhwaqi44/29/9923Yyokmgyayloacr87/26/2012Metoclopramide Hcl09/02/2016 PantoprazoleAbdominal PainMediumPantoprazole Opidmq9204/08/2021ertralineSwelling 09/02/20169141XtyijlmegmsLkyqscwc69/23/2021 Medications MedicationSigDispense QuantityRefillsLast FilledStart DateEnd DateStatus loratadine-pseudoephedrine (CLARITIN-D 24-hour) 10-240 mg per 24 hr tablet Take 1 tablet by mouth in the morning.Active LORazepam (ATIVAN) 1 mg tablet Take 1 tablet (1 mg total) by mouth in the morning and 1 tablet (1 mg total) at noon and 1 tablet (1 mg total) in the evening and 1 tablet (1 mg total) before bedtime.07/26/2016Active nebulizer accessories (REUSABLE NEBULIZER KIT) kit Indications:Chronic obstructive pulmonary disease, unspecified COPD type ([facility])Use as directed 1 kit Active calcium carbonate-vitamin D3 1,000 mg(2,500 mg)-800 unit tablet Take 1 tablet by mouth in the morning.Active esomeprazole (NexIUM) 40 mg capsule Take 1 capsule (40 mg total) by mouth in the morning and at bedtime.Active atorvastatin (LIPITOR) 20 mg tablet Take 1 tablet (20 mg total) by mouth in the morning.Active acetaminophen (TYLENOL) 325 mg tablet Take 2 tablets (650 mg total) by mouth every 4 (four) hours as needed for pain. 30 tablet 05/05/2021ctive empagliflozin (JARDIANCE) 10 mg tablet tablet Indications:Chronic systolic heart failure ([facility])Take 1 tablet (10 mg total) by mouth daily. 30 tablet ctive Additional Information Patient taking differently:10 mg oral Daily,Indications: heart failure with reduced ejection fraction, Reported on 05/30/2025 sacubitriL-valsartan (ENTRESTO) 49-51 mg tablet Take 1 tablet by mouth 2 (two) times a day. 60 tablet ctive oxygen Inhale 3 L/min continuously.Active metoprolol succinate XL (TOPROL-XL) 50 mg 24 hr tablet Take 1 tablet (50 mg total) by mouth 2 (two) times a day. 30 tablet ctive nebulizer accessories [facility] Indications:Chronic respiratory failure with hypoxia ([facility]),Chronic obstructive pulmonary disease, unspecified COPD type ([facility]),Bronchiectasis ([facility])Tubing kit and supplies for home nebulizer 1 each ctive benzonatate (TESSALON PERLES) 100 mg capsule Take 1 capsule (100 mg total) by mouth 3 (three) times a day as needed for cough. 20 capsule 09/24/2023ctive nicotine (NICODERM CQ) 21 mg/[address] 1 patch on the skin in the morning. 30 patch 09/24/2023ctive lamoTRIgine (LaMICtal) 25 mg tablet Take 1 tablet (25 mg total) by mouth in the morning and 1 tablet (25 mg total) before bedtime.Active sodium chloride 3 % nebulizer solution Indications:Bronchiectasis ([facility])INHALE CONTENTS OF 1 VIAL VIA NEBULIZER EVERY DAY 750 mL 1214Active FLUoxetine (PROzac) 20 mg capsule Take 1 capsule (20 mg total) by mouth in the morning.4Active predniSONE (DELTASONE) 10 mg tablet Take 1 tablet (10 mg total) by mouth in the morning. 30 tablet 605Active predniSONE (DELTASONE) 20 mg tablet Take 1 tablet (20 mg total) by mouth in the morning. 10 tablet 5Active roflumilast (DALIRESP) 500 mcg tablet Indications:Chronic obstructive pulmonary disease, unspecified COPD type ([facility])TAKE 1 TABLET BY MOUTH IN THE MORNING 30 tablet 5Active ipratropium-albuteroL (DUONEB) 0.5 mg-3 mg(2.5 mg base)/3 mL nebulizer Indications:Chronic obstructive pulmonary disease, unspecified COPD type ([facility])USE 3 ML VIA NEBULIZER FOUR TIMES DAILY NEEDED FOR WHEEZING 1080 mL 5Active guaiFENesin (MUCINEX) 600 mg tablet extended release 12hr Indications:Bronchiectasis ([facility]),Chronic coughTAKE 1 TABLET(600 MG) BY MOUTH IN THE MORNING AND AT BEDTIME 60 tablet 5Active albuterol (PROVENTIL HFA;VENTOLIN HFA) 90 mcg/actuation inhaler Indications:Chronic obstructive pulmonary disease, unspecified COPD type ([facility])INHALE 2 PUFFS BY MOUTH EVERY 6 HOURS NEEDED FOR WHEEZING OR SHORTNESS OF BREATH 8.5 g 5Active aztreonam lysine (CAYSTON) 75 mg/mL solution for nebulization Inhale 75 mg by nebulization.Active dswzunvzvx-gbubmquh-mybsdldmkj (BREZTRI AEROSPHERE) 160-9-4.8 mcg/actuation HFA aerosol inhaler Inhale 2 puffs in the morning and at bedtime.Active doxycycline (VIBRAMYCIN) 100 mg capsule Take 1 capsule (100 mg total) by mouth in the morning and 1 capsule (100 mg total) before bedtime. Do all this for 14 days. 28 capsule /05/2025Expired Active Problems ProblemNoted DateDiagnosed DatePseudomonas aeruginosa wbwtvuskacco44/11/2024Open wound of elbow without complication, initial hcomqksmy12/24/2023PVC (premature ventricular contraction)2Chronic combined systolic (congestive) and diastolic (congestive) heart wmkzwlg2608/17/2021evere left ventricular systolic uzwggwkehyo01/04/2021Nonischemic jplyenxaqfqyka66/28/2021bnormal stress test 04/30/2021 Overview (04/30/2021): Added automatically from request for surgery [id number] Ankle ibsbtpxd46/05/2021ssential xhvpwjabllnw42/05/2021llergic rhinitis 06/26/2020Other osteoporosis without current pathological xoppsgtc73/22/2020 Tuxngyveqezqtu64/22/2018Pulmonary cvwibo9808/25/2017Tobacco kmzphzatqh16/14/2017 Chronic respiratory failure with hypoxia and azrcjwjagcb37/08/2017Mycobacterium szulgai uifrlwxjp96/08/2017Chronic cough09/02/2016Chronic obstructive pulmonary hwcybpo1609/02/2016Cryptogenic organizing ugvbyqnje84/29/2016 Resolved Problems ProblemNoted DateDiagnosed DateResolved DateBronchiectasis with acute lower respiratory xylfrxnxf30/4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/05/20259178Cpgdqnqcrd98OPD aiprufbkiyzj49/01/2017 11/10/2016Abnormal CT scan, lung Encounters DateTypeDepartmentCare IfawTgsbyyldnhx28/03/2025Telephone [facility] [address] [place] [address] Kendra Rivera RMA 06/20/20253135Fcsejh09/15/2025Telephone [facility] [address] [place] [address] Mary Valencia LPN 06/10/2025Orders Only [facility] [address] [address] Maura Fonseca LPN Chronic respiratory failure with hypoxia and hypercapnia (CMS-HCC) (Primary Dx) 06/10/2025Telephone [facility] [address] [facility] [address] [place] [phone] Maura Fonseca LPN 06/04/2025Telephone [facility] [address] [place] [phone] Kendra Rivera RMA 05/30/2025 3:15 PM EDTOffice Visit [facility] [address] [place] [phone] Laura Mac, DO Chronic respiratory failure with hypoxia and hypercapnia (CMS-HCC) (Primary Dx); Chronic obstructive pulmonary disease, unspecified COPD type (CMS-HCC); Pulmonary nodule; Tobacco dependence; Pseudomonas aeruginosa rysssjhxgpzr97/25/9795Clapoi14/22/2025Refill [facility] [address] [facility] [address] [place] [phone] Rosa Carr, PRINT WASHER-OXYGEN EQUIPMENT TECHNICIAN Chronic obstructive pulmonary disease, unspecified COPD type (CMS-HCC)05/24/2025 Refill [facility] [address] [phone] Larua Mac, Chronic obstructive pulmonary disease, unspecified COPD type (CMS-HCC); Bronchiectasis (CMS-HCC); Chronic coughfrom Last 3 Months Immunizations ImmunizationAdministration DatesNext DueCOVID-19, mRNA, LNP-S, PF, 100mcg/0.5mL Dose11/13/2020,10/16/2020Influenza High Dose Preservative Free IM07/25/2019, 07/08/2017Influenza, High-dose, Zvgklrlkpkib22/04/2020Influenza, Im Trivalent Diwxjiauxdyf50/21/2015Influenza, Injectable, quadrivalent (PF)06/29/2023, 06/28/2022,07/27/2021Influenza, Trivalent, Kjgqeomfds55/02/2018Influenza, Gjbmwubsgxz27/02/2020,07/28/2016Pneumococcal Conjugate 13-Ybptvp0308/09/2016 Pneumococcal Gxdgvtabjqiodo47/03/2017,11/09/2012,05/20/2008RSV, bivalent, protein subunit RSVpreF, diluent reconstituted, 0.5 mL, PF08/10/2023Tdap 08/09/2016 Family History Medical HistoryRelationNameCommentsCoronary artery diseaseFatherDiabetesFather Heart diseaseFatherHypertensionFatherDiabetesMaternal AuntHeart attackMaternal GrandfatherDementiaMaternal GrandmotherArthritisMotherCOPDMotherHeart attack Paternal GrandfatherAnesthesia problemsNeg HxBleeding DisorderNeg HxBreast cancerNeg HxClotting disorderNeg HxColon cancerNeg HxOvarian cancerNeg HxStroke Neg HxRelationNameStatusCommentsFatherDeceasedMaternal AuntAliveMaternal GrandfatherDeceasedMaternal GrandmotherDeceasedMotherDeceasedPaternal GrandfatherDeceasedPaternal GrandmotherDeceased Social History Tobacco UseTypesPacks/DayYears UsedDateSmoking Tobacco: Every DayCigarettes0.556 Smokeless Tobacco: Never Tobacco Cessation:Ready to Q uit: Not Asked; Counseling Given: Not Answered Comments:She is in the quit now program Alcohol UseStandard Drinks/WeekCommentsNo0 (1 standard drink = 0.6 oz pure alcohol)AUDIT-CAnswerDate RecordedQ1: How often do you have a drink containing alcohol?Monthly or less09/23/2023Q2: How many drinks containing alcohol do you have on a typical day when you are drinking?1 or Q3: How often do you have six or more drinks on one occasion?Never09/23/2023HQ-2AnswerDate Recorded Total Svfor6364ChildcareAnswerDate XhptksudSscvdwrtoJdmgunc61/12/2019 EmploymentAnswerDate SqoejaloCvvstllxdbXwbetrv50/12/2019Hunger ScreeningAnswer Date RecordedWithin the past 12 months we worried whether our food would run out before we got money to buy more.Never True01/18/2024Within the past 12 months the food we bought just didn't last and we didn't have money to get more.Never True4Purpose - LifeAnswerDate RecordedPurpose and direction in life Ijfzjeu05/13/2021CommentsNoSex and Gender InformationValueDate Recorded Sex Assigned at TblttAulayh16/10/2021 11:48 AM ESTLegal YmaWaygvv13/06/2015 11:28 AM EDTGender ZvkzvvwtChmcdq97/10/2021 11:48 AM ESTSexual Orientation Wkqfyyez62/10/2021 11:48 AM EST Last Filed Vital Signs Vital SignReadingTime TakenCommentsBlood Zmfabmam647/7305/30/2025 3:24 PM EDT Kkuyu382505/30/2025 3:24 PM NCGUwqbocutejs05.4 ??C (97.5 ??F)02/09/2024 11:06 AM EDTRespiratory Ocfn868109/24/2023 8:37 AM ESTOxygen Azhmtiitvq61%05/30/2025 3:24 PM EDTArrived on 4Lnc of Q9Jzekvdt Oxygen Concentration--Rcjrme33 kg (103 lb 11.2 oz)05/30/2025 3:24 PM XQDGyrgjn324.9 cm (5' 1 )05/30/2025 3:24 PM EDTBody Mass Index19.5909 3:24 PM EDT Plan of Treatment DateTypeDepartmentCare Team (Latest Contact Info)Ytzzpkytrdv93/13/2025 1:00 PM ESTAppointment [facility] [address] [place] [phone] Laura Mac, DO [address] [address] 08/15/2025 3:15 PM ESTOffice Visit [facility] [address] [place] [phone] Laura Mac, DO [address] [address] Health MaintenanceDue DateLast DoneCommentsTobacco Glkivwfihu1952Zoster (Shingles) Vaccine (1 of 2)2002Fall Risk Mpaqjtinm55/05/2017Depression Gmyrjhgwf49/19/622803/OVID-19 Vaccine (2024- season)2025 10/12/2024, 07/23/2023, 07/01/2022, Additional history existsInfluenza Vaccine /, 06/28/2022, 07/27/2021, Additional history existsAdult BMI Czbmejrwm23/Tobacco Olkxoluxf97/DTaP,Tdap and Td Vaccines (2 - Td or Tdap)RSV ( or age 60+ yrs) Zfnwkkfau69/06/2023 Goals GoalPatient Goal TypeAssociated ProblemsRecent ProgressPatient-Stated?Author <enter goal here> GeneralYesMagers, Lourdes Hamlin RN Note: Evaluation of progress towards goal: get back to work [employer] [place] [phone] Advance Directives * Full Code (Latest Code Status on File) Date ActivatedDate InactivatedComments09/22/2023 5:17 PM09/24/2023 1:20 PM Care Teams Team MemberRelationshipSpecialtyStart DateEnd Date Luiz Milner MD PCP - GeneralFamily Medicine05/20/21
--- OUTSIDE RECORDS SUMMARY | 2025-07-10 13:25 | XMS_ITS | Encounter Summary ---
Author Organization [facility] Address [address] [place] [address] Care Team Providers Care Boring Machine Operator Helper Name Role Phone Luiz Milner MD Primary Care Provider [phone] Luiz Milner MD Unavailable Encounter Details DateTypeDepartmentCare Team (Latest Contact Info)Fxrlcllvvur96/07/2024Clinisync Result Encounter [facility] Department Unsolicited Provider, Generic External Data Social History Tobacco UseTypesPacks/DayYears UsedDateSmoking Tobacco: Every DayCigarettesPHQ-2 AnswerDate RecordedPatient Health Questionnaire-2 Umjjd787 CommentsUnknownSex and Gender InformationValueDate RecordedSex Assigned at Not on fileLegal HagDvktwo46/15/2023 6:54 PM EDTGender IdentityNot on fileSexual OrientationNot on filedocumented as of this encounter Functional Status * Over the past 2 weeks, how often have you been bothered by any of the following problems?QuestionAnswerDate of AssessmentAuthorLittle interest or pleasure in doing thingsNot at all09/24/2024 1:00 PM Edna Mckinnon MA Feeling down, depressed, or hopelessNot at all09/24/2024 1:00 PM Edna Mckinnon, MAPatient Health Questionnaire-2 Ssuoe335 1:00 PM Edna Mckinnon MA * QuestionAnswerDate of AssessmentAuthorTrouble falling or staying asleep, or sleeping too muchNot at all09/24/2024 1:00 PM Edna Mckinnon MAFeeling tired or having little energyNot at [...] some wayNot at all09/24/2024 1:00 PM Edna Mckinnon MAPatient Health Questionnaire-9 Kxvkx251 1:00 PM Edna Mckinnon, JACKELYN documented as of this encounter Plan of Treatment DateTypeDepartmentCare Team (Latest Contact Info)Ztwwhnklwxc35/16/2026 1:15 PM ESTProcedure Visit [facility] [address] [place] [phone] Luis Jaime, PREET [address] [place] [address] documented as of this encounter Procedures Procedure NamePriorityDate/TimeAssociated DiagnosisCommentsVC EXT VENOUS REFLUX ZAHIRA LMTD01/10/2024 3:54 PM EDT documented in this encounter Results * VC EXT VENOUS REFLUX ZAHIRA LMTD (01/10/2024 3:54 PM EDT)Anatomical Region LateralityModalityOtherSpecimen (Source)Anatomical Location / Laterality Collection Method / VolumeCollection TimeReceived Time01/10/2024 3:54 PM EDT Narrative 01/10/2024 3:54 PM EDT [facility] ?[address] ? [place] [address] ?Vein Report ? Signed ? Patient: OSMAN,MARCELA A ?MR#: [id number] ?? : 1950 ?Acct:[id number] ?? Age/Sex: 73 / F ?ADM Date: 05/07/24 ?? Loc: [facility] ? Attending Dr: Non-Staff Physician Yolie ? Ordering Physician: PhysicianAda-Staff Urbano ?? Date of Service: 01/10/24 ?? Procedure(s): VC EXT Venous Reflux ZAHIRA LMTD ?? Accession Number(s): [id number] ? cc: Luiz Milner M.D.; Lucian Aquino M.D. ? Patient Name: ? MARCELA BREWER ? MR#: [id number] ? : 1950 ? Exam Date: 01/10/2024 ?? Ordering Doctor: Non-Staff Physician ? RADIOLOGY REPORT ? PROCEDURE: ? VC EXT VENOUS REFLUX ZAHIRA LMTD ? COMPARISON: ? VC EXT VENOUS REFLUX ZAHIRA LMTD, 04/21/2023. ? INDICATIONS: ? Pain due to varicose veins of bilateral legs I83.813 ? TECHNIQUE: ? Duplex imaging of the lower extremity to assess the deep and ?? superficial venous system for the presence of deep or superficial venous ?? incompetence and to document the location and severity of disease. ??The study ?? includes evaluation of the great saphenous vein (GSV), anterior accessory ?? saphenous vein (AASV) and small saphenous vein (SSV). ??Patient scanned in ?? reverse Trendelenburg and standing. ?? FINDINGS: ? RIGHT LOWER EXTREMITY: ?? Saphenofemoral Junction Reflux: Yes 6.3mm 0.6 sec ?? GSV: ? Diam (mm) ?Reflux/ Time (sec) ?? Proximal Thigh ? 5.5 ? No ? Mid Thigh ? 2.3 ? No ?? Distal Thigh ? 2.3 ? No ?? Prox Calf ? 2.3 ? No ?? Mid Calf ?N/A ? Saphenopopliteal Junction Reflux: 1.9mm ?No ? SSV: ? Proximal Calf ? 1.8 ? No ? Mid Calf ? 2.4 ? No ? AASV: ? Proximal Thigh ? 1.9 ? No ? Mid Thigh ? 1.7 ? No ? Distal Thigh ? Thrombi: ? No acute or chronic thrombus visualized ? Compressibility: ? Normal ? Flow: ? Normal ? Preforator: Dist/med calf 1.5mm with 0s reflux. ?? Tech Note: Patent varicose vein prox/med calf 1.6mm with 0s reflux. ? LEFT LOWER EXTREMITY: ?? Saphenofemoral Junction Reflux: Yes 7.1 mm 0.3 sec ?? GSV: ? Diam (mm) ? Reflux/Time (sec) ?? Proximal ??Thigh ? 4.7 ? No ? Mid ?? Thigh ? 3.7 ? No ? Distal ??Thigh ? 2.3 ? No ? Prox ??Calf ? 1.6 ? No ? Mid ??Calf ?N/A ? Saphenopopliteal Junction Relux: ? 1.8 mm ? No ? SSV: ? Proximal ??Calf ? 2.0 ? No ? Mid ??Calf ? 2.0 ? No ? AASV: ? Proximal ??Thigh ? 2.2 ? No ? Mid ??Thigh ? 2.3 ? No ? Distal ??Thigh ? Thrombi: ? No acute or chronic thrombus visualized ? Compressibility: ? Normal ? Flow: ? Normal ? Accounting Support Specialist: ??Dist/med calf 2.5mm with 0s reflux. ?? Tech Note: Patent varicose vein dist/med thigh 2.4mm with 0s reflux. ? CONCLUSION: ?? 1. No abnormal or suspicious dilation or reflux within the superficial veins ?? of the right and left lower extremity. ?? 2. No appreciable deep vein thrombus. ? Dictated by: Luis Limon M.D. on 01/10/2024 at 15:51 ? Approved by: Luis Limon M.D. on 01/10/2024 at 15:53 ? Dictated By: ?Luis Limon M.D. ? Signed By: ?01/10/244 ? DD/ 1554 ? TD/TT: ? Supervisor Orchard: Procedure Note Radiology, Radiologist, - 01/10/2024 [place] [address] Vein Report Signed Patient: MARCELA BREWER AMR#: [id number] : 1950cct:[id number] Age/Sex: 73 / FADM Date: 01/10/24 Loc: [facility] Attending Dr: AdamaStaff Physician Urbano Ordering Physician: Lucian Aquino M.D. Date of Service: 01/10/24 Procedure(s): VC EXT Venous Reflux ZAHIRA LMTD Accession Number(s): [id number] cc: Luiz Milner M.D.; Lucian Aquino M.D. Patient Name: MARCELA BREWER MR#: [id number] : 1950 Exam Date: 01/10/2024 Ordering Doctor: AdamaStaff Physician RADIOLOGY REPORT PROCEDURE: VC EXT VENOUS REFLUX ZAHIRA LMTD COMPARISON: VC EXT VENOUS REFLUX ZAHIRA LMTD, 04/21/2023. INDICATIONS: Pain due to varicose veins of bilateral legs I83.813 TECHNIQUE: Duplex imaging of the lower extremity to assess the deepand superficial venous system for the presence of deep or superficial venous incompetence and to document the location and severity of disease. Thestudy includes evaluation of the great saphenous vein (GSV), anterior accessory saphenous vein (AASV) and small saphenous vein (SSV). Patient scanned in reverse Trendelenburg and standing. FINDINGS: RIGHT LOWER EXTREMITY: Saphenofemoral Junction Reflux: [...] chronic thrombus visualized Compressibility: Normal Flow: Normal Accounting Support Specialist: Dist/med calf 2.5mm with 0s reflux. Tech Note: Patent varicose vein dist/med thigh 2.4mm with 0s reflux. CONCLUSION: 1. No abnormal or suspicious dilation or reflux within the superficialveins of the right and left lower extremity. 2. No appreciable deep vein thrombus. Dictated by: Luis Limon M.D. on 01/10/2024 at 15:51 Approved by: Luis Limon M.D. on 01/10/2024 at 15:53 Dictated By: Luis Limon M.D. Signed By:01/10/24 1554 DD/ 1554 TD/TT: Supervisor Orchard: Authorizing ProviderResult TypeResult StatusGeneric External Data Provider [facility] IMAGINGFinal Result documented in this encounter Visit Diagnoses Not on filedocumented in this encounter Care Teams Team MemberRelationshipSpecialtyStart DateEnd Date Luiz Milner MD [address] [place] [phone] PCP - [facility]09/28/23 Luiz Milner MD [address] [place] [phone] PCP - [facility]10/12/24documented as of this encounter
--- OUTSIDE RECORDS SUMMARY | 2025-07-10 13:25 | XMS_ITS | Encounter Summary ---
Author Organization [facility] Address [address] [place] [address] Care Team Providers Care Labor Relations Director Name Role Phone Luiz Milner MD Primary Care Provider [phone] Angel Riggins MD Unavailable [phone] Source Comments In the event this information is protected by the Federal Confidentiality of Alcohol and Drug AbusePatient Records regulations: The Federal rules restrict any use of the information to criminally investigate or prosecute any alcohol or drug abuse patient.[facility] Encounter Details DateTypeDepartmentCare Team (Latest Contact Info)Mqeyrzsvgwl67/20/2025Refill Cardiology [address] [phone] Angel Riggins MD [address] [place] [address] Social History Tobacco UseTypesPacks/DayYears UsedDateSmoking Tobacco: Every DayCigarettes Smokeless Tobacco: Never Comments:10-[address] Alcohol UseStandard Drinks/WeekCommentsNot Currently0 (1 standard drink = 0.6 oz pure alcohol)PHQ-2AnswerDate RecordedPHQ-2 pwrsv086rea Deprivation IndexAnswerDate RecordedNational Score (1-100), lower number is lower risk75 03/29/2023State Score (1-10), lower number is lower tesr31103/29/2023ata from: https://www.neighborhoodatlas.medicine.[facility]/. Last address used for suwnqqjkqds[address]3CommentsNoSex and Gender Information ValueDate RecordedSex Assigned at DginlWynmqu96/23/2022 11:38 AM ESTLegal Sex Iavzwu5308/06/2012 9:07 AM ESTGender TesycrbmQbostl38/23/2022 11:38 AM ESTSexual BkphueyaffhCmmlvjdi27/23/2022 11:38 AM ESTdocumented as of this encounter Plan of Treatment DateTypeDepartmentCare Team (Latest Contact Info)Jycrvefaonb22/16/2026 11:00 AM ESTOffice Visit Cardiology [address] [phone] DX:Chronic systolic (congestive) heart failure (HCC)10/21/2025 12:30 PM EST Office Visit Cardiology [address] [place] [address] Angel Riggins MD [address] [place] [address] DX:Chronic systolic (congestive) heart failure (HCC)documented as of this encounter Goals GoalPatient Goal TypeAssociated ProblemsRecent ProgressPatient-Stated?Author Blood Pressure < 130/80 Blood Fysbzezv358/118(12/11/2024 3:25 PM EDT)Amelie Anderson, RN documented as of this encounter Visit Diagnoses Not on filedocumented in this encounter Care Teams Team MemberRelationshipSpecialtyStart DateEnd Date Luiz Milner MD [address] [place] [address] PCP - GeneralFamily Medicine11/02/21 Angel Riggins MD [address] [place] [address] Primary Staff CopgyyvfzVrwajzylmb85/8/22documented as of this encounter
--- OUTSIDE RECORDS SUMMARY | 2025-07-10 13:25 | XMS_ITS | Encounter Summary ---
Author Organization [facility] Address [address] [place] [address] Care Team Providers Care Goodwill Ambassador Name Role Phone Luiz Milner MD Primary Care Provider [phone] Luiz Milner MD Unavailable Encounter Details DateTypeDepartmentCare Team (Latest Contact Info)Niiaohdohfw66/08/2024Clinisync Result Encounter [facility] Department Unsolicited Provider, Generic External Data Social History Tobacco UseTypesPacks/DayYears UsedDateSmoking Tobacco: Every DayCigarettesPHQ-2 AnswerDate RecordedPatient Health Questionnaire-2 Ecyao101 CommentsUnknownSex and Gender InformationValueDate RecordedSex Assigned at Not on fileLegal UysKmyusw52/15/2023 6:54 PM EDTGender IdentityNot on fileSexual OrientationNot on filedocumented as of this encounter Functional Status * Over the past 2 weeks, how often have you been bothered by any of the following problems?QuestionAnswerDate of AssessmentAuthorLittle interest or pleasure in doing thingsNot at all09/24/2024 1:00 PM Edna Mckinnon MA Feeling down, depressed, or hopelessNot at all09/24/2024 1:00 PM Edna Mckinnon, MAPatient Health Questionnaire-2 Csqnr262 1:00 PM Edna Mckinnon MA * QuestionAnswerDate [...] 1:00 PM Edna Mckinnon MAPatient Health Questionnaire-9 Hcike408 1:00 PM Edna Mckinnon MA documented as of this encounter Plan of Treatment DateTypeDepartmentCare Team (Latest Contact Info)Dolypwtgjbg42/16/2026 1:15 PM ESTProcedure Visit [facility] [address] [place] [id number] Luis Jaime, DPSupriya [address] [place] [address] documented as of this encounter Procedures Procedure NamePriorityDate/TimeAssociated DiagnosisCommentsVASC US IVC ILIAC DUPLEX JMNODTZ8301/11/2024 2:38 PM EDT documented in this encounter Results * Vascular US IVC iliac duplex limited (01/11/2024 2:38 PM EDT)Anatomical Region LateralityModalityAbdomenUltrasoundSpecimen (Source)Anatomical Location / LateralityCollection Method / VolumeCollection TimeReceived Time01/11/2024 2:38 PM EDT Narrative 01/11/2024 2:39 PM EDT [facility] ?[address] ? [place] [address] ?Vein Report ? Signed ? Patient: OSMAN,MARCELA A ?MR#: [id number] ?? : 1950 ?Acct:[id number] ?? Age/Sex: 73 / F ?ADM Date: 05/07/24 ?? Loc: [facility] ? Attending Dr: Non-Staff Physician Yolie ? Ordering Physician: PhysicianNon-Staff Yolie ?? Date of Service: 01/10/24 ?? Procedure(s): VC Ultrasound IVC LMT ?? Accession Number(s): [id number] ? cc: Luiz Milner M.D.; Lucian Aquino M.D. ? Patient Name: ? MARCELA BREWER ? MR#: [id number] ? : 1950 ? Exam Date: 01/10/2024 ?? Ordering Doctor: Non-Staff Physician ? PROCEDURE: ? VC ULTRASOUND IVC LMT ? COMPARISON: ? None. ? 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 FINDINGS: ? Proximal IVC: ??1.36 cm, 29 cm/second ?? Mid IVC: ??1.25 cm, 17 cm/s ?? Distal IVC: ??0.91 cm, 13 cm/second ? Mid Left common iliac vein: ??0.31 cm, 14 cm/s ?? Distal left common iliac vein: ??0.3 cm, 11.6 cm/second ? Portal vein: ??30.1 cm/s ?? External iliac vein: ??18 cm/s ? Left proximal internal iliac vein: ??7.2 mm, 14 cm/s ?? Left distal internal iliac vein: ??5.6 mm ? Other: ??Multiple hepatic cysts ? Dictated by: Maximino Carrillo MD on 01/11/2024 at 14:29 ? Approved by: Maximino Carrillo MD on 01/11/2024 at 14:38 ? Dictated By: ?Maximino Carrillo M.D. ? Signed By: ?01/11/24 1439 ? DD/ 1438 ? TD/TT: ? Household Assistant: Procedure Note Radiology, Radiologist, - 01/12/2024 [facility] [address] [place] [address] Vein Report Signed Patient: MARCELA BREWER AMR#: [id number] : 2Acct:[id number] Age/Sex: 73 / FADM Date: 01/10/24 Loc: [facility] Attending Dr: AdamaStaff Physician Urbnao Ordering Physician: Lucian Aquino M.D. Date of Service: 01/10/24 Procedure(s): VC Ultrasound IVC LMT Accession Number(s): [id number] cc: Luiz Milner M.D.; Lucian Aquino M.D. Patient Name: MARCELA BREWER MR#: [id number] : 1950 Exam Date: 01/10/2024 Ordering Doctor: AdamaStaff Physician PROCEDURE: VC ULTRASOUND IVC LMT COMPARISON: [...] MD on 01/11/2024 at 14:29 Approved by: Maximino Carrillo MD on 01/11/2024 at 14:38 Dictated By: Maximino Carrillo M.D. Signed By:01/11/24 1439 DD/ 1438 TD/TT: Household Assistant: Authorizing ProviderResult TypeResult StatusGeneric External Data ProviderIMG US PROCEDURESFinal Result documented in this encounter Visit Diagnoses Not on filedocumented in this encounter Care Teams Team MemberRelationshipSpecialtyStart DateEnd Date Luiz Milner MD [address] [place] [address] [facility] - [facility] Luiz Milner MD [address] [place] [address] PCP - [facility]10/12/24documented as of this encounter
--- OUTSIDE RECORDS SUMMARY | 2025-07-10 13:25 | XMS_ITS | Patient Health Record ---
Author Organization [facility] [place] Address [address] [place] [address] Care Team Providers Care Assistant Director Of Public Works Name Role Phone None, Unknown or Primary Care Provider Unavailab le Allergies Allergen (clinical drug ingredient) Drug/Non Drug Allergy documented on EMR Reaction Allergy Type Onset Date Status carboxamine-pseudoephedrine (uncoded)UnknownAllergyActiveamoxicillinAmoxicillin UnknownDrug AllergyActiveKeflexUnknownDrug AllergyActiveLevaquinUnknownDrug AllergyActivepantoprazolePantoprazole SodiumUnknownDrug AllergyActive Reason For Referral No Information Medications Medication SIG (Take, Route, Frequency, Duration) Notes Start Date End Date Status NIFEdipine ER 30 MG 1 tablet on an empty stomach Orally Once a day; Duration: 30 day(s) 03/18/2021ctiveIpratropium-Albuterol 0.5-2.5 (3) MG/3MLINHALE THE CONTENTS OF 1 VIAL THROUGH NEBULIZER QID Inhalation; Duration: 90ActiveFluticasone Propionate 50 MCG/ACT1 spray in each nostril Nasal Twice a day; Duration: 30ActiveVitamin E 400 UNIT1 capsule Orally Once a day; Duration: 30 day(s)ActiveFlonase 50 MCG/ACT 2 sprays in each nostril Nasally Once a day; Duration: 30 day(s)12/07/2019Active Vitamin D2 10 MCG (400 UNIT)2 tablets Orally Once a day; Duration: 30 day(s) 10/01/2019ActiveDaliresp 500 MCG1 tablet Orally Once a dayActiveVentolin HFA 108 (90 Base) MCG/ACTinhale 2 puffs by mouth every 6 hours if needed for wheezing OR shortness of breath InhalationActiveCalcium Carbonate-Vitamin D3 600-400 MG-UNIT 1 tablet with a meal Orally Once a day; Duration: 30 day(s)ActiveReclast 5 MG/100MLas directed Intravenous; Duration: 90 days05/26/2020ActiveCalcium Carbonate 1250 (500 Ca) MG1 tablet Orally Once a day10/01/2019ActivepredniSONE 10 MGOraltakes 5 mg unless breathing is worseActiveAtorvastatin Calcium 10 MG take 1 tablet by mouth once daily Oral HS; Duration: 90ActiveOxygen -as directed 2L ctiveAdvair Diskus 100-50 MCG/DOSE1 puff Inhalation Twice a dayActive Nitro-Bid 2 %Apply to affected toes Transdermal BID02/25/2021ctiveLORazepam 0.5 MG1 tab Oral every 6 hrs prn anxiety; Duration: 30 days05/15/2021ctiveNexIUM 40 MG1 capsule Orally Once a day; Duration: 90 daysActive Immunizations Vaccine Route Administration Date Status Comme nts Flu, unspecified Unknown 07/25/2019 Administered Given at [facility] Flu, unspecified Unknown 07/09/2020 Administered Given at [facility] in [facility] Pneumococcal (Pneumovax 23) Unknown 07/08/2017 Administered Per impact recor ds Pneumococcal (Prevnar 13) Unknown 08/09/2016 Administered Per impact recor ds Tdap Unknown 08/09/2016 Administered per impact r ecord Social History Tobacco Use: Social History Observation Description Date Details (start date - stop date) Current Smoker NA - NA Tobacco Use/Smoking Question Answer Notes Patient is a current smoker How often do you smoke cigarettes?every dayHow many cigarettes a day do you smoke?6-10Alcohol Screen (Audit-C) Question Answer Notes Did you have a drink containing alcohol in the p ast year? No Itewqr5VahgyxashuqrcfGjsicuvx Problems Problem Type SNOMED Code ICD Code Onset Dates Problem Status W/U Status Risk Notes Problem Chronic pain (55014583) Other chronic carina n (G89.29) ActiveconfirmedProblemOsteoporosis (52881470)Other osteoporosis without current pathological fracture (M81.8)ActiveconfirmedProblemAnxiety (49986580)Anxiety (F41.9)ActiveconfirmedProblemSeasonal allergy (203444882)Seasonal allergies (J30.2)ActiveconfirmedProblemEdema (107288337)Edema of both legs (R60.0)Active confirmedProblemCurrent smoker (98703850)Current smoker (F17.200)Activeconfirmed ProblemChronic bronchitis (07684516)Chronic bronchitis, unspecified chronic bronchitis type (J42)ActiveconfirmedProblemSevere chronic obstructive pulmonary disease (948713138)Severe chronic obstructive pulmonary disease (J44.9)Active confirmedProblemChronic systolic heart failure (862391386)Chronic systolic heart failure (I50.22)ActiveconfirmedProblemLong-term current use of systemic steroid (668153627323306)Current chronic use of systemic steroids (Z79.52)Active confirmedProblemHypercholesterolemia (86614339)Hypercholesterolemia (E78.00) ActiveconfirmedProblemRaynaud's disease (135563649)Raynaud's phenomenon without gangrene (I73.00)Activeconfirmed Plan Of Treatment Pending Test Test Name Order Date BMP w/GFR 05/21/2022 Insurance Providers Payer Name Payer Address Payer Phone Subscriber Number Group Number Insured Name Patient Relationship to Insured Coverage Start Date Coverage End Date [place] [address] [place] [address] [id number] Albert Guzman - patient is the [id number] 2019[employer] 8 MEDICARE SUPP CLAIM DEPT [address] [place], [place] [id number], ClaudiaSelf - patient is the [id number] 2019 Medical (General) History Medical History History ICD Code Severe COPD, Chronic respiratory failure - O2 dependent H/o Mycobacterium pneumoia, leaving EVIN cavitary lesion and scarringTobacco dependenceChronic steroid dependencyHyperlipidemiaHyperplasia- both breasts, Mamm has remained unchanged since 2014Raantony'sAnxietyOsteoporosis - from age and chronic steroid dependencyChronic systolic heart failure - EF 30-35% on 04/16/21Surgical History Surgery Date(Month/Year) Vocal cord nodule removed 2018 Heart ablation 2013 Tubes tied GallbladderAppendixTonsilsAdenoidsBiopsy- collapsed lungBiopsy breast- bilateral Hysterectomy (partial)[facility] - High BP, heart cath -05/05/21
--- OUTSIDE RECORDS SUMMARY | 2025-07-10 13:25 | XMS_ITS | Clinical Summary ---
Author Organization [facility] Address [address] [place] [address] Care Team Providers Care Nursing Technician Name Role Phone Luiz Milner MD Primary Care Provider [phone] Allergies Active AllergyReactionsCriticalityNoted HfidFxiewrgsXgobbfsxvhlZdgrits22/06/2025 Carbinoxamine-PseudoephedrineGI intolerance,Other07/31/2012CephalexinHives, Rgmfsti5707/31/2012 Rash. Trouble breathing. Can tolerate 250mg's but not 500mg's Spoke with RN confirmed with pt: [facility]; pt told not to take keflex again Rash. Trouble breathing. Can tolerate 250mg's but not 500mg's Rash. Trouble breathing. Can tolerate 250mg's but not 500mg's Spoke with RN confirmed with pt: [facility]; pt told not to take keflex again Rash. Trouble breathing. Can tolerate 250mg's but not 500mg's Spoke with RN confirmed with pt: Went to ER; pt told not to take keflex again Spoke with RN confirmed with pt: Went to ER; pt told not to take keflex again CiprofloxacinHives,CyavYws3001/27/2018ErythromycinGI intolerance,Nausea And Vomiting,Nausea Only,QrcfmoyQmx27/26/2012MetaxaloneOther,Swelling,Unknown 07/31/2012MetoclopramideUnknown,Ifkskhsd81/26/2012MontelukastOther,Swelling, Rptjkncw39/23/2021PantoprazoleOther,GI intolerance,DmkyczhPisian21/04/2021 Pseudoephedrine-AsbeqpykircdaAtrhajt27/26/6942XpeljvklhgQelsgnju23/26/2012 Medications MedicationSigDispense QuantityRefillsLast FilledStart DateEnd DateStatus albuterol 90 mcg/actuation inhaler INHALE 2 PUFFS BY MOUTH EVERY 6 HOURS NEEDED FOR WHEEZING OR SHORTNESS OF BREATHActive atorvastatin (Lipitor) 20 mg tablet Take 20 mg by mouth in the morning.Active azithromycin (Zithromax) 250 mg tablet take 1 tablet by mouth three times a weekActive rzzzriwbzu-bmuixfbs-nemlhfjkew (Breztri Aerosphere) 160-9-4.8 mcg/actuation HFA aerosol inhaler Inhale 2 puffs twice a day.08/18/2023ctive calcium carbonate-vitamin D3 1,000 mg-20 mcg (800 unit) tablet Take 1 tablet by mouth in the morning.Active empagliflozin (Jardiance) 10 mg Take 10 mg by mouth in the morning.07/07/2023ctive ipratropium-albuteroL (Duo-Neb) 0.5-2.5 mg/3 mL nebulizer solution USE 3 ML VIA NEBULIZER FOUR TIMES DAILY NEEDED FOR WHEEZINGActive sacubitril-valsartan (Entresto) 49-51 mg tablet Take 1 tablet by mouth in the morning and at bedtime.06/22/2021ctive esomeprazole (NexIUM) 40 mg packet Take 40 mg by mouth.Active guaiFENesin (Mucinex) 600 mg 12 hr tablet Take 600 mg by mouth twice a day.03/10/2023ctive lamoTRIgine (LaMICtal) 25 mg tablet Take 50 mg by mouth in the morning.08/10/2024ctive levalbuterol (Xopenex) 1.25 mg/3 mL nebulizer solution INHALE THE CONTENTS OF 1 VIAL VIA NEBULIZER FOUR TIMES DAILYActive loratadine-pseudoephedrine (Claritin-D 24-hour) 10-240 mg 24 hr tablet Take 1 tablet by mouth in the morning.Active FLUoxetine (PROzac) 10 mg capsule Take 10 mg by mouth in the morning.09/17/2024tive torsemide (Demadex) 10 mg tablet Take 10 mg by mouth if needed each day.Active LORazepam (Ativan) 1 mg tablet Take 1 mg by mouth 4 times a day.07/26/2016Active metoprolol succinate XL (Toprol-XL) 50 mg 24 hr tablet Take 50 mg by mouth in the morning and at bedtime.Active predniSONE (Deltasone) 10 mg tablet Take 10 mg by mouth in the morning.10/15/2021ctive roflumilast (Daliresp) 500 mcg tablet Take 500 mcg by mouth in the morning.Active aspirin 81 mg EC tablet Take 81 mg by mouth in the morning.Active Active Problems ProblemNoted DateDiagnosed KajpNtkxszx56/06/2025Restless legs syndrome (RLS) 03/26/2025hronic lfcrasrxcn99/01/2025urrent xzdpqu6203/05/2025 Overview (04/10/2025): Added secondary to documentation in Social History. Ckonkifrbhwmvxkdusez72/01/2025Other chronic pain03/05/2025Raynaud's phenomenon without bljzxurh25/01/2025Seasonal agcejkipn76/01/2025hronic dysfunction of right eustachian tube09/24/2024urrent chronic use of systemic steroids 09/24/2024Medicare annual wellness visit, nskkicvcxc02/20/2025Pulmonary ghokmxrctjvd99/20/2025May-Thurner ltuaxsvv00/31/2024Major depressive disorder, recurrent episode, nizgeauo88/28/2024Seasonal allergic rhinitis due to pollen 03/29/2024Tinnitus of right ear03/12/2024hronic respiratory failure with jmufjygfbyk32/15/2024seudomonas aeruginosa decvjjftixrr43/11/2024Visual yatnzahhdhb08/14/3523Mqecdgxtuxpb23/24/2024ilateral primary osteoarthritis of hip12/28/2023DD (degenerative disc disease), oocaaj5312/28/2023yslipidemia 12/28/2023Edema of both legs12/28/2023GAD (generalized anxiety disorder) 12/28/2023Heart failure with improved ejection fraction (HFimpEF)12/28/2023 Peripheral vascular zlcixoc0012/28/2023Venous qgxtfesppaukf92/24/2024Ventricular ppabhbnvvyj97/03/2024rotein-calorie wxgpgmyjiheo28/27/2023Open wound of elbow without complication, initial uwlnplzpb75/24/2023VC (premature ventricular contraction)12/21/2021hronic combined systolic (congestive) and diastolic (congestive) heart ctxobqq03/13/2021Severe left ventricular systolic dysfunction 07/09/2021Nonischemic vrlandbezfjjqx56/28/2021bnormal stress test04/30/2021 Overview (04/10/2025): Added automatically from request for surgery [id number] Ankle wicdcbwk19/05/2021llergic /22/2020Age-related osteoporosis without current pathological lqmfspwo65/22/3777Carqxkqwvuyscw92/22/2018Pulmonary ijmcxd6208/25/2017Mycobacterium szulgai xhenfbaqd08/08/2017Chronic cough09/02/2016 Cryptogenic organizing /29/2016Emphysema of lung05/03/2013Essential jfpwgcaxkkus81/24/2013GERD (gastroesophageal reflux disease)09/28/2012HLD (hyperlipidemia)09/28/2012Tobacco npbpszliqx43/24/2013 Encounters DateTypeDepartmentCare BxinRlvnwwlgxui54/29/2025 11:20 AM EDTOffice Visit [facility] [address] [place] [address] Michaela Torres MD Heart failure with improved ejection fraction (HFimpEF) (CMS/HCC) (Primary Dx); Nonischemic cardiomyopathy (CMS/HCC); Hypercholesterolemia; Essential hypertension; Current smoker; JHA (dyspnea on exertion)05/03/2025Orders Only [facility] [address] [place] [address] Anita Richard MA Nonischemic cardiomyopathy (CMS/HCC) (Primary Dx); JHA (dyspnea on exertion)from Last 3 Months Family History Medical HistoryRelationNameCommentsCABGBrotherHeart attackPaternal Grandfather RelationNameStatusCommentsBrotherAliveFatherDeceasedPaternal GrandfatherDeceased Social History Tobacco UseTypesPacks/DayYears UsedDateSmoking Tobacco: Every DayCigarettes Smokeless Tobacco: NeverAlcohol UseStandard Drinks/WeekCommentsNot Currently0 (1 standard drink = 0.6 oz pure alcohol)CommentsUnknownSex and Gender InformationValueDate RecordedSex Assigned at LzsebErqkvc28/05/2025 3:42 PM EDT Legal WqoDrmbai73/16/2024 1:17 PM EDTGender DhoqburuPybjkf93/05/2025 3:42 PM EDT Sexual OrientationHeterosexual or Wttzsqiu00/05/2025 3:42 PM EDT Last Filed Vital Signs Vital SignReadingTime TakenCommentsBlood Mgrbzrml323/64005/03/2025 11:33 AM EDT Bqurb457205/03/2025 11:33 AM EDTTemperature--Respiratory Rate--Oxygen Saturation 97%05/03/2025 11:33 AM EDTon 4L A9Qrongiv Oxygen Concentration--Ckbdyf41.7 kg (103 lb)05/03/2025 11:33 AM PVAIiylgt023.2 cm (5' 1.5 )05/03/2025 11:33 AM EDT Body Mass Index19.15005/03/2025 11:33 AM EDT Plan of Treatment DateTypeDepartmentCare Team (Latest Contact Info)Yrfyeutrqdu36/17/2025 11:20 AM ESTOffice Visit [facility] [address] [place] [address] Michaela Torres MD [address] [place] [address] Health MaintenanceDue DateLast DoneCommentsCT Skjutvdrssih1950Colonoscopy 1950FOBT1950Medicare Annual Wellness (AWV)1950igmoidoscopy 1950epression Xrsjatrsu95/05/1964Zoster Vaccines (1 of 2)2002Fall Risk Zbxnyxsrb04/05/1202JLC50/OVID-19 Vaccine ( season)502/03/2025, 07/23/2023, 07/01/2022, Additional history exists Influenza Vaccine (#1)510/, 06/28/2022, 07/27/2021, Additional history existsAdult Wnsllld33Mammogram7002/19/2025, 02/14/2021olorectal Cancer Rdwtjgahg74/05/2028FIT-DNA Pneumococcal Vaccine: 50+ NdvwtTzoirhngk67/03/2017, 08/09/2016, 11/09/2012, Additional history existsHIB VaccinesAged OutNo longer eligible based on patient's age to complete this topicHPV VaccinesAged OutNo longer eligible based on patient's age to complete this topicIPV VaccinesAged OutNo longer eligible based on patient's age to complete this topicMeningococcal B VaccineAged OutNo longer eligible based on patient's age to complete this topicMeningococcal VaccineAged OutNo longer eligible based on patient's age to complete this topic Rotavirus VaccinesAged OutNo longer eligible based on patient's age to complete this topic Procedures Procedure NamePriorityDate/TimeAssociated DiagnosisCommentsECG 12-LEADRoutine 05/03/2025 4:04 PM EDT Heart failure with improved ejection fraction (HFimpEF) (CMS/HCC) ECG 12 LEAD UNIT WDCLKYAKBVyavjlb05/29/2025 12:13 PM EDT Heart failure with improved ejection fraction (HFimpEF) (CMS/HCC) JHA (dyspnea on exertion) from Last 3 Months Results * ECG 12 lead (05/03/2025 4:04 PM EDT)Specimen (Source)Anatomical Location / LateralityCollection Method / VolumeCollection TimeReceived Time Narrative Michaela Torres MD - 05/03/2025 4:04 PM EDT Sinus rhythm with premature atrial complex, heart rate 81 bpm Left bundle branch block Abnormal EKG Authorizing ProviderResult TypeResult Hubert HARRISON ORDERABLESFinal Result * ECG 12 lead unit performed (05/03/2025 12:13 PM EDT)Specimen (Source) Anatomical Location / LateralityCollection Method / VolumeCollection Time Received Time Narrative Authorizing ProviderResult TypeResult Hubert HARRISON ORDERABLESFinal Result from Last 3 Months Insurance Care Teams Team MemberRelationshipSpecialtyStart DateEnd Date Luiz Milner MD [address] [place] [address] PCP - GeneralFamily Medicine04/09/25
--- OUTSIDE RECORDS SUMMARY | 2025-07-10 13:29 | XMS_ITS | CCD ---
Author Organization [facility] Care Team Providers Care Hot Dip Galvanizer Name Role Phone Cristhian Webber Primary Care Provider Luiz Tadeo Primary Care Provider Luiz Tadeo Primary Care Provider Luiz Tadeo Primary Care Provider [phone] Luiz Tadeo Primary Care Provider Vaishnavi SMITH, Alex Unavailable DR LUIZ TADEO Primary Care Unavailable WILBER, DR FLEMING Admitting Unavailable WILBER, DR FLEMING Consulting Unavailable WILBER, DR FLEMING Attending Unavailable DINEROSAMANTHA Consulting Unavailable NADEREHernandez, DR LUIZ Anglin Admitting Unavailable NADEREHernandez, DR LUIZ Anglin Primary Care Unavailable NADEREHernandez, DR LUIZ Anglin Consulting Unavailable NADEREHernandez, DR LUIZ Anglin Attending Unavailable ALEX RIGGINS Referring Unavailable LUIZ TADEO Primary Care Unavailable ALEX RIGGINS Referring Unavailable LUIZ TADEO Primary Care Unavailable SHWETHA, LUIZ Anglin Primary Care Unavailable ALEX RIGGINS Referring Unavailable Vaishnavi SMITH, Alex Unavailable Luiz Tadeo Primary Care Provider LUIZ TADEO Referring Unavailable LUIZ TADEO Primary Care Unavailable LUIZ TADEO Primary Care Unavailable DENNISE BENTLEY Attending Unavailable LAURA MAC Consulting Unavailable CARYN GONZALEZ Admitting Unavailable ILEANA, NISH Referring Unavailable LUIZ TADEO Primary Care Unavailable ILEANA, NISH Referring Unavailable LUIZ TADEO Primary Care Unavailable LAURA MAC Attending Unavailable LAURA MAC Referring Unavailable LUIZ TADEO Primary Care Unavailable Luiz Tadeo MD Primary Care Provider [phone] Luiz Tadeo MD Primary Care Provider [phone] LUIZ TADEO Primary Care Physician Luiz Tadeo MD Primary Care Provider Luiz Tadeo MD Primary Care Provider Luiz Tadeo MD Unavailable Fox, Mohamed F. Admitting Unavailable NONE, XXXX Referring Unavailable Fox, Mohamed F. Attending Unavailable Fox, Levar F. Attending Unavailable NONE, XXXX Referring Unavailable Fox, Mohamed F. Admitting Unavailable Fox, Mohamed F. Referring Unavailable Fox, Mohamed F. Admitting Unavailable Fox, Mohamed FBenita Attending Unavailable Fox, Levar FBenita Attending Unavailable LUIZ TADEO Referring Unavailable Fox, Levar FBenita Admitting Unavailable Fox, MD Levar Arevalo Referring Unavailable Fox, MD Levar Arevalo Admitting Unavailable Fox, MD Levar Arevalo Attending Unavailable MD Levar Braxton Referring Unavailable Fox, MD Levar Arevalo Admitting Unavailable Fox, MD Levar Aervalo Attending Unavailable Luiz Tadeo MD Primary Care Provider LAURA MAC Referring Unavailable LISAEREHernandez, LUIZ Primary Care Unavailable SHWETHA, LUIZ Referring Unavailable SHWETHA, LUIZ Primary Care Unavailable LAURA MAC Referring Unavailable SHWETHA, LUIZ Primary Care Unavailable LAURA MAC Attending Unavailable LAURA MAC Referring Unavailable NADERER, LUIZ Primary Care Unavailable LAURA MAC Referring Unavailable SHWETHA, LUIZ Primary Care Unavailable ALEX RIGGINS Referring Unavailable LISAEREHernandez, LUIZ Primary Care Unavailable MANDIE BREWER Referring Unavailable NADERER, LUIZ Primary Care Unavailable SHWETHA, LUIZ Referring Unavailable NADZAINA, LUIZ Primary Care Unavailable LAURA MAC Attending Unavailable LAURA MAC Referring Unavailable SHWETHA, LUIZ Primary Care Unavailable LAURA MAC Referring Unavailable SHWETHA, LUIZ Primary Care Unavailable Luiz Tadeo MD Primary Care Provider LUIZ TADEO Referring Unavailgifty e NADEREHernandez, LUIZ ALMONTE Primary Care Unavailgifty e Luiz Tadeo MD Primary Care Provider MD Levar Braxton Admitting Unavailable NONE, XXXX Referring Unavailable MD Levar Braxton Attending Unavailable MD Levar Braxton Attending Unavailable MD Levar Braxton Referring Unavailable MD Levar Braxton Admitting Unavailable MD Levar Braxton Referring Unavailable MD Levar Braxton Admitting Unavailable MD Levar Braxton Attending Unavailable MD Levar Braxton Admitting Unavailable NONE, XXXX Referring Unavailable MD Levar Braxton Attending Unavailable BEN HAYNES Attending Unavailable LAURA MAC Attending Unavailable SHWETHA, LUIZ Referring Unavailable NADERER, LUIZ Primary Care Unavailable LAURA MAC Attending Unavailable SHWETHA, LUIZ Referring Unavailable NADEREHernandez, LUIZ Primary Care Unavailable LAURA MAC Attending Unavailable SHWETHA, LUIZ Referring Unavailable NADZAINA, LUIZ Primary Care Unavailable Luiz Tadeo MD Primary Care Provider Luiz Tadeo MD Unavailable MARCELLA JAIME Attending Unavailable TIMMISROLY Attending Unavailable RUSHER, MARCELLA Anglin Attending Unavailable DOMENICO, YUKI Anglin Attending Unavailable TIMMISROLY Attending Unavailable NADERER, LUIZ Attending Unavailable NADERER, LUIZ Attending Unavailable NADERER, LUIZ Attending Unavailable NADERER, LUIZ Attending Unavailable RUSHER, MARCELLA Anglin Attending Unavailable NADERER, LUIZ A Primary Care Unavailable HUGO LOTT Attending Unavailable SELF Referring Unavailable ALEX IRGGINS Attending Unavailable SHWETHA, LUIZ Anglin Primary Care Unavailable Luiz Tadeo MD Primary Care Provider [phone] Allergies Allergy ClassificationReported Allergen(s)Allergy TypeDate of OnsetReaction(s) Facilitycarbinoxamine / Pseudoephedrine (1 source)carbinoxamine / PseudoephedrineDrug Mstygxf55-24-5093Qfhjy Health Cephalosporins (antibiotic) (2 sources)CephalexinDrug Nvgkuww87-86-6266Qhyct [facility] Work Phone: DOPamine Antagonists (1 source)MetoclopramideDrug Zjondlr00-21-1551Wudja HealthMacrolides (antibiotic) (1 source)ErythromycinDrug Yeeqbcu34-08-9211Smbjsf And VomitingSelect Medical [facility] Work Phone: metaxalone (1 source)metaxaloneDrug Dzqfdfh04-39-1651Vhpfs HealthQuinolones (antibiotic) (2 sources)CiprofloxacinDrug Llaqxxu25-31-3400EtnwVilct HealthSerotonin Reuptake Inhibitors (SSRIs) (1 source)SertralineDrug Pkpdjlo12-91-5482XerbnhxoFgbyu Health (20 sources)carbinoxamine / Pseudoephedrine; 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: [CARBINOXAMINE-PSEUDOEPHEDRINE]Drug Vwlzfkm46-90-3901Kmjxo: See Comments [facility] (20 sources)Cephalexin; 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: [CEPHALEXIN]Drug Xyvtnzq23-99-2705Iblum, Unknown (qualifier value)[facility] (20 sources)Ciprofloxacin; 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: [CIPROFLOXACIN]Drug Stbnnyj23-90-3742 Rash, HivesHighland District Hospital (20 sources)Erythromycin; 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: [ERYTHROMYCIN]Drug Imjxqja22-97-2943LD Upset, GI intolerance, Nausea And Vomiting, Nausea Only, Unknown (qualifier value), NauseaHighland District Hospital (20 sources)levoFLOXacin; 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: [LEVOFLOXACIN]Drug Zyoepvz28-62-4214 Rash, Swelling, Unknown (qualifier value)[facility] (20 sources)metaxalone; 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: [METAXALONE]Drug Erxqsqa42-40-3521Wpfcz: See Comments, Unknown (qualifier value)[facility] (20 sources)Metoclopramide; 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: [METOCLOPRAMIDE]Drug Xgmwjgz81-29-7612 Intolerance, Swelling, Unknown (qualifier value)[facility] (20 sources)montelukast; 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: [MONTELUKAST]Drug Hmchsib23-58-3396Afhep: See Comments, Swelling, WheezingCleOhioHealth Berger Hospital (20 sources)pantoprazole; 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: [PANTOPRAZOLE]Drug Jeexmhs69-91-2762 Other: See Comments, GI intolerance, Unknown, Abdominal PainHighland District Hospital (20 sources)Sertraline; 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: [SERTRALINE]Drug Kqtvasd92-94-1215Dnghbkac [facility] (2 sources)Amoxicillin; 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: [AMOXICILLIN]Drug Hqtqmoa01-30-9623WzmSal[facility] (1 source)carbinoxamineDrug Otkmuuk22-32-6205KjdSalem City Hospital [facility] (1 source)CephalexinDrug Ytivicf26-28-0779Hha [facility] (1 source)CiprofloxacinDrug Oynehef34-68-7089Zpi [facility] (1 source)ErythromycinDrug Uvvtgcv79-01-9561Xkx [facility] (1 source)Gentian VioletDrug Vjinifh28-21-9108JxkSalem City Hospital [facility] (4 sources)Iothalamate; 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: [Reglan]Drug Rnpmiwc82-44-4897XnxSalem City [facility] (1 source)levoFLOXacinDrug Ceodhmz73-51-3677Cag [facility] (1 source)metaxaloneDrug Mkvpgwg93-47-6353NodSalem City Hospital [facility] (4 sources)metaxalone; 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: [Skelaxin]Drug Iorsbjd75-69-6340Ooa [facility] (1 source)montelukastDrug Elopcbm37-98-1803VbnSalem City Hospital [facility] (1 source)SertralineDrug Quilogt65-66-9612RnxSalem City Hospital [facility] (2 sources)SertralineDrug Rkhlitw02-11-3547OjpkpczlOss [facility] (20 sources)Metoclopramide; 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: [METOCLOPRAMIDE HCL]Drug Allergy 00-16-1796XvqLaqdrk Repository (20 sources)pantoprazole; 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: [PANTOPRAZOLE SODIUM]Drug Allergy 94-49-8023EolJkdwop Repository (20 sources)chlophedianol / PseudoephedrineDrug Ncsfxig30-27-8993SQ[facility] (20 sources)metaxaloneDrug Cwahiki65-72-8054YsuiqoipEZFS Healthcare (11 sources)Chlorpheniramine / Phenylephrine; 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: [chlorpheniramine-phenylephrine]Drug Nkxexxs76-11-9731Zfwgdoe (qualifier value) [facility] (1 source)PSEUDOEPHEDRINE-CHLOPHEDIANOL; 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: [PSEUDOEPHEDRINE-CHLOPHEDIANOL]Propensity to adverse reactions to drug (disorder)54-83-4269LxjxdutnesACMC Healthcare [facility] Medications Current Medications MedicationDrug Class(es)DatesSig (Normalized)Sig (Original)acetaminophen 325 mg oral tablet (20 sources)Start: 07-08-5615pyuo 2 tablets by mouth every four hours as needed for painacetaminophen (TYLENOL) 325 mg tablet Take 2 tablets (650 mg total) by mouth every 4 (four) hours as needed for pain. 30 tablet 05/05/2021 Active Comment on above:Take 650 mg by mouth every 4 hours as needed.acetaminophen 325 mg / HYDROcodone bitartrate 5 mg oral tablet (2 sources)Opioid AgonistStart: 11-13-2024 End: 40-17-8113lgus 1 tablet by mouth four times daily as needed for pain HYDROcodone-acetaminophen ([place]) 5-325 MG tablet Indications: Postoperative pain Take 1 tablet by mouth 4 (four) times a day as needed for severe pain for up to 5 days 20 tablet 11/14/2024 11/19/2024 Viiufphem573625 200 actuat albuterol 0.09 mg/actuat metered dose inhaler (20 sources)beta2-Adrenergic AgonistStart: 03-13-2025 End: 45-90-2169kelk 2 puff(s) by mouth every six hours as needed for wheezing albuterol (PROVENTIL HFA;VENTOLIN HFA) 90 mcg/actuation inhaler Indications: Chronic obstructive pulmonary disease, unspecified COPD type (CMS-HCC) INHALE 2 PUFFS BY MOUTH EVERY 6 HOURS NEEDED FORWHEEZING OR SHORTNESS OF BREATH 8.5 g 2 05/28/2025 ActiveStart: 00-78-3407Lsuxmrfus HFA Refills(s) 0 Start Date: 08/10/24 Status: Ordered Repeat number: 1Start: 58-76-9892Alvrfyuxz HFA Refills(s) 0 Start Date: 08/10/24 Status: OrderedStart: 03-20-2024 End: 34-50-8839pkiw 2 puff(s) by mouth every six hours as needed for wheezing albuterol (PROVENTIL HFA;VENTOLIN HFA) 90 mcg/actuation inhaler Indications: Chronic obstructive pulmonary disease, unspecified COPD type (CMS-HCC) INHALE TWO PUFFS BY MOUTH EVERY 6 HOURS NEEDED FOR WHEEZING AND SHORTNESS OF BREATH 18 g 3 12/27/2024 03/13/2025 DiscontinuedStart: 83-08-9488xybf 2 puff(s) by inhalation every six hours for wheezingalbuterol HFA 90 mcg/act inhaler Inhale 2 puffs every 6 (six) hours if needed for wheezing or shortness of breath 07/25/2023 ActiveStart: 07-25-2023 End: 44-52-7380wnab 2 puff(s) by mouth every six hours as needed for wheezing albuterol (PROVENTIL HFA;VENTOLIN HFA) 90 mcg/actuation inhaler Indications: Chronic obstructive pulmonary disease, unspecified COPD type (CMS-HCC) INHALE TWO PUFFS BY MOUTH EVERY 6 HOURS NEEDED FOR WHEEZING AND SHORTNESS OF BREATH 8.5 g 11 07/25/2023 03/20/2024 Discontinued (Reorder)Start: 70-30-4879qwvpgqrhr HFA (PROVENTIL HFA, VENTOLIN HFA) 90 mcg/actuation inhaler once daily as needed. 09/11/2021 ActiveStart: 01-16-2021 End: 26-66-5788dvql 2 puff(s) by inhalation every six hours as needed for wheezingalbuterol (PROVENTIL HFA;VENTOLIN HFA) 90 mcg/actuation inhaler Indications: Chronic obstructive pulmonary disease, unspecified COPD type (CMS- HCC) Inhale 2 puffs every 6 (six) hours as needed for wheezing or shortness of breath. 8 g 3 01/16/2021 10/05/2021 DiscontinuedComment on above:once daily as needed.albuterol 0.833 mg/ml / ipratropium bromide 0.167 mg/ml inhalation solution (20 sources)Anticholinergic, beta2-Adrenergic AgonistStart: 05-24-2025 ipratropium-albuteroL (DUONEB) 0.5 mg-3 mg(2.5 mg base)/3 mL nebulizer Indications: Chronic obstructive pulmonary disease, unspecified COPD type (CMS- HCC) USE 3 ML VIA NEBULIZER FOUR TIMES DAILY NEEDED FOR WHEEZING 1080 mL 3 05/24/2025 ActiveStart: 11-22-2024 End: 91-26-3695enyf 3 mL by inhalation four times daily as needed for wheezing ipratropium-albuteroL (DUONEB) 0.5 mg-3 mg(2.5 mg base)/3 mL nebulizer Indications: Chronic obstructive pulmonary disease, unspecified COPD type (CMS- HCC) Inhale 3 mL by nebulization 4 (four) times aday as needed for wheezing. 360 mL 6 11/22/2024 05/24/2025 DiscontinuedStart: 76-43-2883MilCfn 2.5 mg-0.5 mg/3 mL Soln-Inh Refill(s) 0 Start Date: 08/10/24 Status: Ordered Repeat number: 1 Start: 16-02-9840ehuz 1 dose by inhalation four times dailyipratropium-albuterol (DUONEB) 0.5-2.5 (3) MG/3ML SOLN nebulizer solution INHALE THE CONTENTS OF 1 V IAL BY NEBULIZER QID PRF SHORTNESS OF BREATH 3 07/25/2017 Activeaspirin 325 mg oral tablet (20 sources)Platelet Aggregation Inhibitor, Nonsteroidal Anti-inflammatory Drug Start: 11-12-2024 End: 57-77-0596honu 1 tablet by mouth once dailyaspirin 325 mg Tab 325 mg = 1 tab(s), Oral, Daily, Refills(s) 0 Start Date: 11/12/24 Status: OrderedRepeat number: 1take 1 tablet by mouth once dailyaspirin 81 MG EC tablet Take 81 mg by mouth Daily ActiveASPIRIN CHILD ORAL (2 sources)take 81 mg by mouth once dailyASPIRIN CHILD ORAL Take 81 mg by mouth once daily. Activeatorvastatin 20 mg oral tablet (20 sources)HMG-CoA Reductase InhibitorStart: 12-11-2024 End: 54-45-5001qhxd 1 tablet by mouth once dailyatorvastatin (LIPITOR) 20 mg tablet Take 1 tablet by mouth once daily. 90 tablet 3 12/11/2024 12/11/2025 ActiveStart: 03-22-2024 End: 80-20-7555tdwq 1 tablet by mouth at bedtimeatorvastatin (Lipitor) 10 MG tablet Indications: Dyslipidemia Take 1 tablet (10 mg) by mouth at bedtime 90 tablet 3 03/22/2024 ActiveComment on above:Take 10 mg by mouth once daily. azithromycin 250 mg oral tablet (20 sources)Macrolide AntimicrobialStart: 12-27-2024 End: 96-53-3658teuebolnygkr (ZITHROMAX) 250 mg tablet Indications: Chronic obstructive pulmonary disease, unspecified COPD type (CMS-HCC) , Bronchiectasis (CMS-HCC) Take 2 tablets the first day, then 1 tablet dailyfor 4 days. 12 tablet 12/27/2024 01/26/2025 ActiveStart: 08-27-2024 End: 73-18-7522joztasysxkbk (Zithromax) 250 MG tablet 08/27/2024 ActiveStart: 10-29-2023 End: 23-77-0930dnax 1 tablet by mouth three times weeklyazithromycin (ZITHROMAX) 250 mg tablet Indications: Chronic obstructive pulmonary disease, unspecified COPD type (CMS-HCC) , Bronchiectasis (CMS-HCC) TAKE 1 TABLET(250 MG) BY MOUTH 3 TIMES A WEEK 12 tablet 11 10/29/2023 11/26/2023 ActiveStart: 07-27-2021 End: 08-07-2681qfmwebshysua (ZITHROMAX) 250 mg tablet takes every other day 15 tablet 2 07/27/2021 10/15/2021 Discontinued (Reorder)Start: 55-10-2367laad 1 tablet by mouth once dailyazithromycin (ZITHROMAX) 250 MG tablet TAKE ONE TABLET BY MOUTH DAILY 30 tablet 11/16/2017 ActiveStart: 11-16-2017 End: 18-80-6485gllfblkvvian (ZITHROMAX) 250 mg tablet Take 1 tablet by mouth every 48 hours. 0 11/16/2017 01/14/2022 ExpiredComment on above:Take 1 tablet by mouth every 48 hours.aztreonam 75 mg/ml inhalation solution (20 sources)Monobactam AntibacterialStart: 04-10-2024 End: 56-84-6411dmti 75 mg by inhalation every eight hoursaztreonam lysine (CAYSTON) 75 mg/mL solution for nebulization Indications: Bronchiectasis ([facility])Inhale 75 mg by nebulization every 8 (eight) hours for 28 days. 84 mL 1 04/16/2024 05/14/2024 Activeaztreonam lysine (CAYSTON) 75 mg/mL solution for nebulization Inhale 75 mg by nebulization. Activeaztreonam lysine (CAYSTON) 75 MG nebulizer solution Take by nebulization Add 1 mL of sterile respiratory saline to openned vial, recap, swirl, then immediately add to nebulizer Active aztreonam lysine (CAYSTON) 75 mg/mL nebulizer solution 75 mg three times a day. 3x daily for 28 days then off for 28 days Activebenzonatate 100 mg oral capsule (20 sources)Non-narcotic AntitussiveStart: 09-24-2023 End: 02-24-7400dyqv 1 capsule by mouth three times daily as needed for cough benzonatate (TESSALON PERLES) 100 mg capsule Take 1 capsule (100 mg total) by mouth 3 (three) timesa day as needed for cough. 20 capsule 09/24/2023 Active Breztri Aerosphere inhalation aerosol (7 sources)Start: 74-88-0323Qbbytwd Aerosphere inhalation aerosol Refill(s) 0 Start Date: 08/10/24 Status: Ordered Repeat number: 1Start: 40-55-1900Zruugxj Aerosphere inhalation aerosol Refill(s) 0 Start Date: 08/10/24 Status: Ordered Qsdymko-Letgeunuplp-Wstdljxpqx (BREZTRI AEROSPHERE IN) (1 source)Dububvs-Wdjaaotmgrj-Jzelcpxntl (BREZTRI AEROSPHERE IN) Inhale into the lungs Pqzree13 actuat budesonide 0.16 mg/actuat / formoterol fumarate 0.0045 mg/actuat metered dose inhaler (1 source)Corticosteroid, beta2-Adrenergic Agonisttake 2 puff(s) by inhalation twice dailybudesonide-formoterol (SYMBICORT) 160-4.5 MCG/ACT AERO Inhale 2 puffs into the lungs 2 times daily ActiveCalcium Carb-Cholecalciferol (Calcium 1000 + D) 1000-20 MG-MCG tablet (20 sources)take 1 tablet by mouth in the morningCalcium Carb-Cholecalciferol (Calcium 1000 + D) 1000-20 MG-MCG tablet Take 1 tablet by mouth in themorning. ActiveCalcium Carb-Cholecalciferol (CALCIUM CARBONATE-VITAMIN D3 PO) (2 sources)Calcium Carb-Cholecalciferol (CALCIUM CARBONATE-VITAMIN D3 PO) Take 1 tablet by mouth ActiveCalcium Carb-Cholecalciferol (CALCIUM CARBONATE-VITAMIN D3 PO) Take 1 tablet by mouth 0 Activecalcium carbonate 2500 mg / cholecalciferol 800 unt oral tablet (20 sources)Vitamin Dtake 1 tablet by mouth in the morningcalcium carbonate- vitamin D3 1,000 mg(2,500 mg)-800 unit tablet Take 1 tablet by mouth in the morning. Activetake 1 tablet by mouth once dailycalcium carbonate-vitamin D3 1,000 mg-20 mcg (800 unit) tab Take 1 tablet by mouth once daily. ActiveComment on above:Take 1 tablet by mouth once daily.doxycycline hyclate 100 mg oral capsule (19 sources)Tetracycline-class DrugStart: 05-30-2025 End: 53-96-0458wcgo 1 capsule by mouth in the morning, then take 1 capsule by mouth at bedtimedoxycycline (VIBRAMYCIN) 100 mg capsule Take 1 capsule (100 mg total) by mouth in the morning and 1capsule (100 mg total) before bedtime. Do all this for 14 days. 28 capsule 05/30/2025 06/13/2025 ActiveStart: 02-08-2024 End: 91-34-4476xqsw 1 capsule by mouth in the morning, then take 1 capsule by mouth at bedtimedoxycycline (VIBRAMYCIN) 100 mg capsule Indications: Bronchiectasis with acute lower respiratory infection (CMS-HCC) Take 1 capsule (100 mg total) by mouth in the morning and 1 capsule (100 mg total)before bedtime. Do all this for 10 days. 20 capsule 02/08/2024 02/18/2024 ActiveStart: 11-10-2023 End: 02-74-4349ttqn 1 capsule by mouth in the morning, then take 1 capsule by mouth at bedtimedoxycycline (VIBRAMYCIN) 100 mg capsule Indications: Bronchiectasis (CMS-HCC) Take 1 capsule (100 mg total) by mouth in the morning and 1 capsule (100 mg total) before bedtime. Do all this for 10 days. 20 capsule 0 11/10/2023 11/20/2023 Active End: 54-37-1073nioi 1 tablet by mouth in the morningdoxycycline (Adoxa) 100 MG tablet Take 100 mg by mouth in the morning and 100 mg before bedtime. Take with a full glass of water and do not lie down for at least 30 minutes after. 07/05/2024 Discontinuedeflornithine 139 mg/ml topical cream (1 source)Antiprotozoal, Decarboxylase InhibitorStart: 37-55-1259Lhbfmljmanaq HCl (VANIQA) 13.9 % CREA Apply 1 Applicatorful topically 2 times daily. 1 Tube 6 11/09/2012 Activeempagliflozin 10 mg oral tablet (20 sources)Sodium-Glucose Cotransporter 2 InhibitorStart: 05-29-2021 End: 42-61-6984nhbg 1 tablet by mouth once dailyempagliflozin (JARDIANCE) 10 mg tablet tablet Indications: Chronic systolic heart failure (CMS-HCC)Take 1 tablet (10 mg total) by mouth daily. 30 tablet 11 05/29/2021 ActiveComment on above: Take 10 mg by mouth once daily.Take 1 tablet by mouth once daily.esomeprazole 40 mg delayed release oral capsule (20 sources)Proton Pump InhibitorStart: 07-02-2024 End: 16-89-0919qngb 1 capsule by mouth in the morningesomeprazole (NexIUM) [address] capsule Indications: Gastroesophageal reflux disease without esophagitis Take 1 capsule (40 mg) by mouth in the morning and 1 capsule (40 mg) before bedtime. 180 capsule 3 09/27/2024 ActiveStart: 07-02-2024 End: 04-10-2261koqa 1 capsule by mouth in the morningesomeprazole (NexIUM) [address] capsule Indications: Gastroesophageal reflux disease without esophagitis Take 1 capsule (40 mg) by mouth in the morning and 1 capsule (40 mg) before bedtime. 180 capsule 3 09/27/2024 Activetake 1 dose by mouth once daily esomeprazole Magnesium (NEXIUM) 40 MG PACK Take 1 packet by mouth daily Active Comment on above:Take 40 mg by mouth once daily.Take 40 mg by mouth twice daily. FLUoxetine 20 mg oral capsule (20 sources)Serotonin Reuptake InhibitorStart: 40-41-7533qtij 1 capsule by mouth once dailyFLUoxetine 10 mg Cap 10 mg = 1 cap(s), Oral, Daily, Refills(s) 0 Start Date: 09/17/24 Status: Ordered Repeat number: 1Start: 08-22-2024 End: 09-50-1645unzo 1 capsule by mouth in the morningFLUoxetine (PROzac) 20 mg capsule Take 1 capsule (20 mg total) by mouth in the morning. 08/22/2024 Active Start: 05-30-2024 End: 30-79-9578whoi 1 capsule by mouth once dailyFLUoxetine (PROzac) 10 MG capsule Indications: Major depressive disorder, recurrent episode, moderate (CMS/HCC) Take 1 capsule (10 mg) by mouth Daily 30 capsule 3 05/30/2024 08/22/2024 Discontinued (Reorder)take 10 mg by mouth once dailyfluoxetine HCl (FLUOXETINE ORAL) Take 10 mg by mouth once daily. Activefluticasone propionate 0.05 mg/actuat metered dose nasal spray (20 sources)CorticosteroidStart: 19-53-0876bmud 2 spray(s) nasal route once dailyfluticasone (Flonase) 50 MCG/ACT nasal spray Indications: Seasonal allergic rhinitis due to pollen Administer 2 sprays into each nostril Daily 16 g 5 05/02/2024 ActiveStart: 08-08-2023 End: 78-53-5897zdfv 2 spray(s) nasal route in the morningfluticasone (Flonase) 50 MCG/ACT nasal spray Administer 2 sprays into each nostril in the morning. 1 10/09/2022 05/02/2024 Discontinued (Reorder)12 hr guaiFENesin 600 mg extended release oral tablet (20 sources)Start: 03-10-2023 End: 60-96-4151vvjo 1 tablet by mouth every twelve hours at bedtimeguaiFENesin (MUCINEX) 600 mg tablet extended release 12hr Indications: Bronchiectasis ([facility]) , Chronic cough TAKE 1 TABLET(600 MG) BY MOUTH IN THE MORNING AND AT BEDTIME 60 tablet 3 05/24/2025 ActiveStart: 03-10-2023 End: 50-97-7431gzkl 1 tablet by mouth onceguaiFENesin (MUCINEX) 600 mg tablet extended release 12hr Indications: Bronchiectasis ([facility]-HCC) , Chronic cough Take 1 tablet (600 mg total) by mouth every 12 (twelve) hours. 60 tablet 10 03/10/2023 03/26/2024 Discontinuedtake 2 tablets by mouth twice dailyguaiFENesin (MUCINEX) 600 MG extended release tablet Take 2 tablets by mouth 2 times daily Activeipratropium bromide 0.2 mg/ml inhalation solution (20 sources)AnticholinergicStart: 08-21-2024 End: 84-70-2585psuk 1 dose by inhalation four times dailyipratropium (ATROVENT) 0.02 % nebulizer solution Indications: Bronchiectasis ([facility]) , Other emphy sema ([facility]) INHALE 1 VIAL VIA NEBULIZER FOUR TIMES DAILY 1080 mL 3 09/13/2024 11/22/2024 DiscontinuedStart: 12-90-3915Ysxtudrd HFA Refills(s) 0 Start Date: 08/10/24 Status: OrderedStart: 35-25-2980ksoeiglxofu (Atrovent) 0.02 % nebulizer solution Take 3 mL by nebulization in the morning and 3 mL at noon and 3 mL in the evening and 3 mL before bedtime. 07/26/2023 ActiveStart: 07-26-2023 End: 12-17-5493rtig 1 dose by inhalation four times dailyipratropium (ATROVENT) 0.02 % nebulizer solution Indications: Other emphysema (CMS-HCC) , Bronchiect asis (CMS-HCC) INHALE 1 VIAL VIA NEBULIZER FOUR TIMES DAILY 900 mL 2 06/06/2024 ActiveStart: 07-09-2021 End: 96-40-2380gnhr 2.5 mL by inhalation four times dailyipratropium (ATROVENT) 0.02 % nebulizer solution Indications: Other emphysema (CMS-HCC) , Bronchiect asis (CMS-HCC) Inhale 2.5 mL (0.5 mg total) by nebulization 4 (four) times a day for 90 days. 900 mL 3 07/09/2021 10/07/2021 Expiredipratropium (ATROVENT) 0.02 % nebulizer solution Use 0.5 mg via nebulizer four times daily. ActiveComment on above:Use 0.5 mg via nebulizer four times daily.iv contrast (will be provided with radiology test) (1 source)Start: 03-15-2024 End: 43-85-7004zxapnq 1 dose intravenously onceiv contrast (will be provided with radiology test) CTA ABD/PEL - No IV access, insert saline lock prior to the sedation, infusion, injection for imaging exam. Discontinue saline lock post exam. If Pt. has a central line or IVAD, may access for administration according to line specific nursing protocol. Once exam is complete flush line and de- access according to line specific nursing protocol in the CT contrast administration guidelines link. 1 Each 0 03/15/2024 03/16/2024 ActivelamoTRIgine 25 mg oral tablet (20 sources)Mood Stabilizer, Anti-epileptic AgentStart: 47-75-1697pqwd 2 tablets by mouth at bedtimelamoTRIgine (LaMICtal) 25 MG tablet Indications: Major depressive disorder, recurrent episode, moderate (HCC) TAKE 2 TABLETS(50 MG) BY MOUTH AT BEDTIME 60 tablet 5 11/15/2024 ActiveStart: 85-83-4921Ohmshyhl 25 mg Tab Refills(s) 0 Start Date: 08/10/24 Status: OrderedStart: 05-02-2024 End: 23-18-8761tmaa 2 tablets by mouth once dailyLamictal 25 mg Tab 50 mg = 2 tab(s), Oral, Daily, Refills(s) 0 Start Date: 08/10/24 Status: OrderedStart: 05-25-2021 End: 69-71-4835cisy 1 tablet by mouth once daily at bedtimelamoTRIgine (LAMICTAL) 25 mg tablet Take 25 mg by mouth daily at bedtime. 0 05/25/2021 01/12/2024 Discontinued (Discontinued by Patient)Start: 05-25-2021 End: 24-59-0256yzfx 2 tablets by mouth in the morning for anxietylamoTRIgine (LaMICtal) 25 mg tablet Take 2 tablets (50 mg total) by mouth in the morning. For anxiety. 05/25/2021 02/09/2024 DiscontinuedComment on above:Take 25 mg by mouth daily at bedtime.levalbuterol 0.417 mg/ml inhalation solution (20 sources)beta2-Adrenergic AgonistStart: 03-27-2024 End: 29-84-8414omxbybadmjzg (Xopenex) 1.25 MG/3ML nebulizer solution 03/27/2024 03/26/2025 DiscontinuedStart: 09-11-2021 End: 88-48-4394icpk 1 dose by inhalation four times dailylevalbuterol (Xopenex) 1.25 MG/3ML nebulizer solution INHALE THE CONTENTS OF 1 VIAL VIA NEBULIZER FOUR TIMES DAILY 03/27/2024 ActiveStart: 07-09-2021 End: 03-76-7386qqsp 3 mL by inhalation four times dailylevalbuterol (XOPENEX) 1.25 mg/3 mL nebulizer solution Indications: Other emphysema (CMS-HCC) , Bron chiectasis (CMS-HCC) Inhale 3 mL by nebulization 4 (four) times a day for 90 days. 1080 mL 3 07/09/2021 02/08/2022 DiscontinuedComment on above:four times daily.24 hr loratadine 10 mg / pseudoephedrine sulfate 240 mg extended release oral tablet (20 sources)alpha-Adrenergic Agonist End: 41-63-9915gzyh 1 tablet by mouth once in the morning, then take 1 tablet by mouth every twenty-four hoursloratadine-pseudoephedrine (CLARITIN-D 24-hour) 10-240 mg per 24 hr tablet Take 1 tablet by mouth in the morning. Activetake 10- 240 mg by mouth every twenty-four hours in the morningloratadine-pseudoephedrine ER (Claritin-D 24-hour) 10-240 MG 24 hr tablet Take 1 tablet by mouth inthe morning. Activetake 1 tablet by mouth once dailyLoratadine-Pseudoephedrine (CLARITIN-D 24 HOUR PO) Take 1 tablet by mouth daily. Activetake 1 tablet by mouth once dailyloratadine-pseudoephedrine ER (CLARITIN-D 24) 10-240 mg Tb24 Take 1 tablet by mouth once daily. 0 Activetake 1 tablet by mouth once daily Loratadine-Pseudoephedrine (CLARITIN-D 24 HOUR PO) Take 1 tablet by mouth daily. 0 ActiveComment on above:Take 1 tablet by mouth once daily.Take 1 tablet by mouth as needed. LORazepam 1 mg oral tablet (20 sources)BenzodiazepineStart: 26-39-1505eaau 1 tablet by mouth four times dailyAtivan 0.5 mg Tab 0.5 mg = 1 tab(s), Oral, QID, Refills(s) 0 Start Date: 08/10/24 Status: Ordered Repeat number: 1Start: 07-26-2016 End: 82-79-9636PEXjefzdx (ATIVAN) 1 mg tablet Take 1 tablet (1 mg total) by mouth in the morning and 1 tablet (1 mg total) at noon and 1 tablet (1 mg total) in the evening and 1 tablet (1 mg total) before bedtime. 07/26/2016 Active Start: 07-26-2016 End: 86-12-7072mkeb 1 tablet by mouth four times dailyLORazepam (ATIVAN) 1 mg tablet Take 1 mg by mouth four times daily. 07/26/2016 Activetake 2 tablets by mouth four times dailyLORazepam (ATIVAN) 0.5 MG tablet Take 2 tablets by mouth 4 times daily. Activetake 1 tablet by mouth every six hours as needed for anxiety LORazepam (ATIVAN) 0.5 MG tablet Take 0.5 mg by mouth every 6 hours as needed for Anxiety. 0 ActiveComment on above:Take 1 mg by mouth four times daily.24 hr metoprolol succinate 50 mg extended release oral tablet (20 sources)beta-Adrenergic BlockerStart: 79-46-5769mhtd 1 tablet by mouth once dailyToprol XL 50 mg Tab-ER 50 mg = 1 tab(s), Oral, Daily, Refills(s) 0 Start Date: 08/10/24 Status: Ordered Repeat number: 1Start: 09-22-2021 End: 41-93-1231bayb 1 tablet by mouth twice dailymetoprolol succinate XL (TOPROL-XL) 50 mg 24 hr tablet Take 1 tablet (50 mg total) by mouth 2 (two)times a day. 30 tablet 11 09/22/2021 ActiveStart: 08-11-2021 End: 80-02-6821auyfxnijrv succinate XL (TOPROL-XL) 50 mg 24 hr tablet Indications: Chronic combined systolic and diastolic heart failure ([facility]-HCC) Take 1 in the morning and half tablet in the evening 45 tablet 11 08/11/2021 09/22/2021 DiscontinuedComment on above:Take 50 mg by mouth twice daily.Take 1 tablet by mouth twice daily.nebulizer accessories (REUSABLE NEBULIZER KIT) kit (20 sources)Start: 08-56-1546jlsiatmha accessories (REUSABLE NEBULIZER KIT) kit Indications: Chronic obstructive pulmonary disease, unspecified COPD type ([facility]- HCC) Use as directed 1 kit 09/23/2016 Activenebulizer accessories misc (20 sources)Start: 16-57-7792zienophtd accessories misc Indications: Chronic respiratory failure with hypoxia (CMS-HCC) , Chronic obstructive pulmonary disease, unspecified COPD type (CMS-HCC) , Bronchiectasis ([facility]-HCC) Tubing kit and supplies for home nebulizer 1 each 12 10/21/2022 Cuzjer49 hr nicotine 0.875 mg/hr transdermal system (20 sources)Cholinergic Nicotinic AgonistStart: 06-72-9484jwcro 1 dose transdermal route every hour in the morningnicotine (NICODERM CQ) 21 mg/[address] 1 patch on the skin in the morning. 30 patch 09/24/2023 ActiveStart: 09-24-2023 End: 03-42-1352wtrwaemj (Nicoderm, Step 1) 21 MG/24HR patch Place 1 patch on the skin in the morning. 09/24/2023 08/22/2024 DiscontinuedStart: 05-20-2016 nicotine (NICODERM CQ) 21 MG/24HR Place 1 patch onto the skin 0 05/20/2016 Activenitroglycerin 0.02 mg/mg topical ointment (20 sources)Nitrate VasodilatorStart: 18-90-7739dqhhbvjwivwhe (NITRO-BID) 2 % ointment as needed. Raynaud's 02/27/2021 ActiveStart: 02-27-2021 End: 81-14-6738ARZVB-BID 2 % ointment 2 (two) times a day. 02/27/2021 12/29/2021 Discontinued (Therapy completed)Comment on above:as needed. Raynaud'sOxygen (20 sources)Start: 15-68-4292Vdpphq Refill(s) 0 Start Date: 08/10/24 Status: Ordered Repeat number: 1Start: 97-97-7089Lhbdmv Refill(s) 0 Start Date: 08/10/24 Status: OrderedOXYGEN Inhale into the lungs Activeoxygen Inhale 3 L/min continuously. Activeoxygen Inhale 2 L/min continuously. Activeoxygen Inhale 2 L/min continuously. 0 Gamrrvvgaohlbwuzgu-hrrtgdrjqg-nnnlld (ZOSYN) 3.375 gram/50 mL IVPB Premix (7 sources)Start: 02-14-2024 End: 18-74-6231rurr 65 mL intravenously every eight hours awuhgvcossud-hdoqnqluoy-wqcfcq (ZOSYN) 3.375 gram/50 mL IVPB Premix Indications: Bronchiectasis with acute lower respiratory infection (CMS-HCC) , Pneumonia due to Pseudomonas aeruginosa (CMS-HCC) Infuse 65 mL (3.375 g total) into a venous catheter every 8 (eight) hours for 28 days. 5460 mL 02/14/2024 03/13/2024 Active predniSONE 20 mg oral tablet (20 sources)Start: 09-13-2024 End: 08-36-7636alet 1 tablet by mouth in the morningpredniSONE (DELTASONE) 20 mg tablet Take 1 tablet (20 mg total) by mouth in the morning. 10 tablet 0 11/22/2024 ActiveStart: 36-84-5568hmxb 0.5 tablet by mouth once dailypredniSONE (Deltasone) 10 MG tablet Take 0.5 tablets (5 mg) by mouth Daily 07/05/2024 ActiveStart: 07-05-2024 End: 26-94-5689jezf 1 tablet by mouth once dailypredniSONE (Deltasone) 20 MG tablet Indications: Bronchiectasis without complication (CMS/HCC) Take1 tablet (20 mg) by mouth Daily for 7 days 7 tablet 07/05/2024 07/12/2024 ActiveStart: 05-02-2024 End: 41-43-5539hwqw 4 tablets by mouth once daily, then take 2 tablets by mouth once daily, then take 1 tablet by mouth once dailypredniSONE (Deltasone) 10 MG tablet Indications: Bronchiectasis without complication (CMS/HCC) 4 POdaily x 6 days, 2 PO daily x 3 days, 1 PO daily x 3 days 33 tablet 05/02/2024 08/22/2024 DiscontinuedStart: 09-24-2023 End: 50-97-2224jytbkbGEBP (DELTASONE) 10 mg tablet Take 4 tabs daily for 3 days, then 3 tabs daily for 3 days, then 2 tabs daily for 3 days, then continue on 10mg daily. 30 tablet 09/24/2023 12/29/2023 Discontinued(Reorder)Start: 61-82-1860iaxsvlZRWC (DELTASONE) 10 mg tablet Indications: Bronchiectasis (CMS- HCC) Take 4 tabs daily x 3 days, then take 3 tabs daily x 3 days, then take 2 tabs daily x 3 days, then take 1 tab daily x 3 days 30 tablet 0 02/18/2023 ActiveStart: 08-12-2021 End: 16-93-0146zlli 1 tablet by mouth in the morningpredniSONE (DELTASONE) 10 mg tablet Take 1 tablet (10 mg total) by mouth in the morning. 30 tablet 6 10/26/2024 ActiveStart: 75-72-7873voaq 1 tablet by mouth once dailypredniSONE (DELTASONE) 5 MG tablet TK 1 T PO QD 6 09/04/2017 ActiveComment on above:Take 10 mg by mouth once daily.raloxifene hydrochloride 60 mg oral tablet (1 source)Estrogen Agonist/AntagonistStart: 59-26-8113rpil 1 tablet by mouth once dailyraloxifene (EVISTA) 60 MG tablet Take 1 tablet by mouth daily. 30 tablet 5 05/03/2013 Activeroflumilast 0.5 mg oral tablet (20 sources)Phosphodiesterase 4 InhibitorStart: 78-02-4451oqod 1 tablet by mouth in the morningRoflumilast 500 mcg oral tablet TAKE 1 TABLET BY MOUTH IN THE MORNING Start Date: 09/17/24 Status: Ordered Repeat number: 1Start: 09-17-2024 take 1 tablet by mouth in the morningRoflumilast 500 mcg oral tablet TAKE 1 TABLET BY MOUTH IN THE MORNING Start Date: 09/17/24 Status: OrderedStart: 40-55-3530Stwlmxgx 500 mcg oral tablet Refills(s) 0 Start Date: 08/10/24 Status: Ordered Repeat number: 1Start: 06-17-2020 End: 29-21-6322oequ 1 tablet by mouth in the morningroflumilast (DALIRESP) 500 mcg tablet Indications: Chronic obstructive pulmonary disease, unspecified COPD type ([facility]-HCC) TAKE 1 TABLET BY MOUTH IN THE MORNING 30 tablet 11 03/18/2025 ActiveComment on above:Take 500 mcg by mouth once daily.rOPINIRole 0.5 mg oral tablet (7 sources)Nonergot Dopamine AgonistStart: 53-48-8615evun 1 tablet by mouth at bedtimerOPINIRole (Requip) 0.5 MG tablet Indications: Restless legs syndrome (RLS) TAKE 1 TABLET(0.5 MG) BY MOUTH AT BEDTIME 90 tablet 3 03/26/2025 Active sacubitril 49 mg / valsartan 51 mg oral tablet (20 sources)Angiotensin 2 Receptor BlockerStart: 09-32-4925Hplnsahh 49 mg-51 mg oral tablet Refill(s) 0 Start Date: 08/10/24 Status: OrderedStart: 06-22-2021 End: 13-42-4638kfgu 1 tablet by mouth twice dailysacubitriL-valsartan (ENTRESTO) 49-51 mg tablet Take 1 tablet by mouth 2 (two) times a day. 60 tablet 3 06/22/2021 Activesacubitril-valsartan (Entresto) 49-51 MG tablet every 12 (twelve) hours ActiveComment on above:Take 1 tablet by mouth twice daily.sodium chloride 30 mg/ml inhalation solution (20 sources)Start: 02-17-2024 End: 13-44-2577duioiv chloride (NORMAL SALINE FLUSH) injection Infuse 5 mL into a venous catheter in the morning. 300 mL 6 02/17/2024 05/22/2024 Discontinued (Therapy completed)Start: 55-68-8949tcxx 1 dose by inhalation once dailysodium chloride 3 % nebulizer solution Indications: Bronchiectasis ([facility]-HCC) INHALE CONTENTS OF 1 VIAL VIA NEBULIZER EVERY DAY 750 mL 12 08/20/2024 ActiveStart: 09-23-2023 End: 43-22-2361jtakeq chloride 0.9 % injection Infuse 10 mL into a venous catheter every 12 (twelve) hours. May also infuse 10 mL as needed for line care. May also infuse 20 mL as needed for line care. 1000 mL 09/23/2023 02/09/2024 DiscontinuedStart: 36-27-2018czue 750 mL by inhalation once dailysodium chloride 3 % nebulizer solution Indications: Bronchiectasis ([facility]-HCC) Inhale by nebulizationdaily. 750 mL 12 08/18/2023 ActiveStart: 11-30-2022 End: 06-45-7254npxm 1 tablet by mouth once dailysodium chloride 1,000 mg TbSO Take 1 tablet by mouth once daily. ON HOLD 0 12/30/2022 ActiveStart: 11-02-2021 End: 59-32-3483udifoc chloride 0.9 % (flush) 10 mL (BD POSIFLUSH)sodium chloride 0.9 % nebulizer solution Take 3 mL by nebulization if needed for wheezing ActiveSODIUM CHLORIDE, EXTERNAL, 0.9 % SOLN Apply topically ActiveComment on above:Take 1,000 mg by mouth once daily.Take 1 tablet by mouth once daily. ON HOLDINHALE CONTENTS OF 1 VIAL VIA NEBULIZER EVERY DAYSymbicort 160/4.5 inhalation aerosol with adapter (1 source)Start: 84-80-8350kfsx 2 puff(s) by inhalation twice dailySymbicort 160/4.5 inhalation aerosol with adapter 2 puff(s), Inhalation, BID, Refill(s) 0 Start Date: 08/10/24 Status: Orderedtiotropium 0.018 mg inhalation powder (1 source)AnticholinergicStart: 63-92-0637jbzn 1 capsule by inhalation once dailytiotropium (SPIRIVA) 18 MCG inhalation capsule Inhale 1 capsule into the lungs daily. 30 capsule 5 05/03/2013 Activetobramycin 60 mg/ml inhalation solution (17 sources)Aminoglycoside AntibacterialStart: 09-12-2023 End: 14-90-7813kanqakinro (Omar 300) 300 MG/5ML nebulizer solution Take 5 mL by nebulization in the morning and 5 mL before bedtime. 09/12/2023 08/22/2024 DiscontinuedStart: 09-09-2023 End: 30-15-1313vtoj 5 mL by inhalation in the morningtobramycin PF (OMAR) 300 mg/5 mL nebulizer solution Indications: Bronchiectasis (CMS-HCC) , Pseudomonas aeruginosa infection Inhale 5 mL (300 mg total) by nebulization in the morning and 5 mL (300 mgtotal) before bedtime. Do all this for 28 days. 280 mL 0 09/09/2023 10/07/2023 Activetorsemide 10 mg oral tablet (20 sources)Loop DiureticStart: 01-24-2025 End: 67-97-7397dcbb 1 tablet by mouth once daily as neededtorsemide (DEMADEX) 10 mg tablet TAKE 1 TABLET BY MOUTH DAILY NEEDED 90 tablet 1 01/24/2025 Active Start: 03-04-2023 End: 15-84-8369pddj 1 tablet by mouth once daily as neededtorsemide (DEMADEX) 10 mg tablet Take 1 tablet by mouth once daily as needed. 30 tablet 11/01/2023 A ctiveComment on above:Take 1 tablet by mouth once daily as needed.Vitamin E (20 sources)Start: 48-35-1367iqutijc E Refills(s) 0 Start Date: 08/10/24 Status: Ordered Repeat number: 1Start: 78-53-1751pjrkgql E Refills(s) 0 Start Date: 08/10/24 Status: Orderedvitamin E (VITAMIN E-400) 400 UNIT capsule Take 1 capsule by mouth Activetake 1 capsule by mouth once dailyVitamin E, dl, acetate, (VITAMIN E) 400 unit capsule Take 400 Units by mouth once daily. Active End: 48-72-9495vskx 1 capsule by mouth in the morningvitamin E 400 units capsule Take 1 capsule (400 Units total) by mouth in the morning. 09/24/2023 Dis continued (Stop Taking at Discharge)take 1 capsule by mouth once dailyVitamin E, dl, acetate, (VITAMIN E) 400 unit capsule Take 400 Units by mouth once daily. 0 Activevitamin E (VITAMIN E-400) 400 UNIT capsule Take 400 Units by mouth 0 ActiveComment on above:Take 400 Units by mouth once daily. Completed/Discontinued Medications MedicationDrug Class(es)DatesSig (Normalized)Sig (Original)ALPRAZolam 1 mg oral tablet (9 sources)BenzodiazepineStart: 08-22-2024 End: 91-07-8672pdqv 1 tablet by mouth four times daily as needed for anxiety ALPRAZolam (Xanax) 1 MG tablet Indications: LUCERO (generalized anxiety disorder) ([facility]) Take 1 tablet (1 mg) by mouth 4 (four) times a day as needed for anxiety 120 tablet 1 09/13/2024 09/24/2024 DiscontinuedStart: 01-26-2022 End: 08-08-9783fklk 1 tablet by mouth once daily as neededALPRAZolam (XANAX) 0.5 mg tablet Indications: Anxiety Take 1 tablet by mouth as needed (BEFORE MRI T EST, ADMINISTER BY THE NURSE) for up to 1 day. 1 tablet 0 01/26/2022 01/26/2022 Discontinued (Course of therapy completed)Comment on above:Take 1 tablet by mouth as needed (BEFORE MRI TEST, ADMINISTER BY THE NURSE) for up to 1 day.120 actuat budesonide 0.16 mg/actuat / formoterol fumarate 0.0048 mg/actuat / glycopyrrolate 0.009 mg/actuat metered dose inhaler (20 sources)Corticosteroid, beta2-Adrenergic AgonistStart: 01-15-2025 End: 45-42-0423njid 2 puff(s) by inhalation at bedtime xogxeefecy-xrarjvsz-exjtsmxuut 160-9-4.8 mcg/actuation HFA aerosol inhaler Indications: Chronic obstructive pulmonary disease, unspecified COPD type ([facility]- HCC) Inhale 2 puffs in the morning and at bedtime. 10.7 g 12 01/15/2025 05/30/2025 DiscontinuedStart: 45-48-5106pwya 2 puff(s) by inhalation in the zdruaalOefjcal-Cqzngqpbirn-Caczufywtv (Breztri Aerosphere) 160-9-4.8 MCG/ACT aerosol Inhale 2 puffs in themorning and 2 puffs in the evening. 08/18/2023 ActiveStart: 08-18-2023 End: 57-01-6573eogw 2 puff(s) by inhalation at bedtime mkqemifcus-iqblsqwc-rriltwanzz 160-9-4.8 mcg/actuation HFA aerosol inhaler Indications: Chronic obstructive pulmonary disease, unspecified COPD type ([facility]- HCC) Inhale 2 puffs in the morning and at bedtime. 10.7 g 12 07/19/2024 Active Comment on above:Inhale 2 Puffs as instructed.fluticasone / salmeterol (20 sources)Corticosteroid, beta2-Adrenergic AgonistStart: 11-06-2020 End: 57-26-6146bbej 1 puff(s) by inhalation twice dailyfluticasone propion- salmeteroL (ADVAIR DISKUS) 500-50 mcg/dose DISKUS Indications: Chronic obstructi ve pulmonary disease, unspecified COPD type ([facility]-HCC) Inhale 1 puff 2 (two) times a day. 1 Inhaler 11 11/06/2020 12/24/2021 Discontinued (Reorder)Start: 26-09-2707idof 1 puff(s) by inhalation twice dailyfluticasone-salmeterol (ADVAIR) 500-50 mcg/dose dsdv Inhale 1 Puff as instructed twice daily. 0 12/2020 ActiveStart: 72-00-4386aixb 1 puff(s) by inhalation twice daily fluticasone-salmeterol (ADVAIR) 500-50 mcg/dose dsdv Inhale 1 Puff as instructed twice daily. 0 11/06/2020 ActiveStart: 41-70-5767oane 1 puff(s) by inhalation twice dailyfluticasone-salmeterol (ADVAIR) 250-50 MCG/DOSE AEPB Inhale 1 puff into the lungs 2 times daily. 60each 5 05/03/2013 ActiveComment on above:Inhale 1 Puff as instructed twice daily.furosemide 40 mg oral tablet (20 sources)Loop DiureticStart: 07-27-2021 End: 52-56-0959jzek 1 tablet by mouth once daily as neededfurosemide (LASIX) 40 mg tablet Indications: Chronic combined systolic and diastolic heart failure ( CMS-HCC) Take 1 tablet (40 mg total) by mouth daily as needed (swelling or weight gain). 90 tablet 3 07/27/2021 12/29/2021 Discontinued (Therapy completed) Comment on above:Take 40 mg by mouth as needed.perflutren lipid microspheres 1.3 mL in NaCl (PF) 0.9% 10 mL injection (DEFINITY) (20 sources)Start: 10-19-2022 End: 79-08-8173adfzlmxvrq lipid microspheres 1.3 mL in NaCl (PF) 0.9% 10 mL injection (DEFINITY)Start: 11-02-2021 End: 89-40-3836brobkkalwm lipid microspheres 1.3 mL in NaCl (PF) 0.9% 10 mL injection (DEFINITY)potassium chloride 10 meq extended release oral tablet (20 sources)Start: 07-27-2021 End: 90-26-0193rwgwqhmcd chloride (K-TAB,KLOR-CON) 10 MEQ CR tablet TAKE 1 TABLET BY MOUTH EVERY DAY, TAKE FOR 2 DAYS WITH LASIX AND NEEDED FOR WEIGHT GAIN OF 3 LBS 90 tablet 07/27/2021 12/21/2021 DiscontinuedComment on above:as needed. With lasixspironolactone 25 mg oral tablet (20 sources)Aldosterone AntagonistStart: 05-29-2021 End: 92-04-5542vimf 1 tablet by mouth once dailyspironolactone (ALDACTONE) 25 mg tablet Take 1 tablet by mouth once daily. ON HOLD 90 tablet 3 12/30/2022 Active Comment on above:Take 25 mg by mouth once daily.Take 1 tablet by mouth once daily.Take 1 tablet by mouth once daily. ON HOLD Problems Active Problems Problem ClassificationProblemDateDocumented DateEpisodic/ChronicAnxiety disorders (20 sources)Anxiety; 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: [Anxiety disorder, unspecified]Onset: 12-28-2023 Resolved: 48-57-8238HlduievUrsmmk; peripheral; and visceral artery aneurysms (1 source)Arterial aneurysm; 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: [Aneurysm of other specified arteries]Onset: 75-94-2605RawdpulPlpzhn (7 sources)Drscwf76-58-8059WyumttqUvnuzau dysrhythmias (20 sources)Ventricular tachycardia; 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: [Ventricular tachycardia (HCC)]Onset: 03-10-0345XexouhpRwimdio obstructive pulmonary disease and bronchiectasis (20 sources)Chronic obstructive lung disease; 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: [Chronic obstructive pulmonary disease, unspecified]Onset: 09-28-2012 Resolved: 352515-55-3984WbzrcldStyczdloor heart failure; nonhypertensive (20 sources)Chronic systolic heart failure; 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: [Chronic systolic (congestive) heart failure]Onset: 08-17-2021 Resolved: 58-22-6067UegjvhaYurbpilij of lipid metabolism (20 sources)Hyperlipidemia; 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: [Hyperlipidemia, unspecified]Onset: 959873-75-6597NhwbflsNhxkstomjo disorders (20 sources)Gastroesophageal reflux disease; 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: [Gastro-esophageal reflux disease without esophagitis]Onset: 019119-94-7258WdlsrgxOhflqgqho hypertension (20 sources)Hypertensive disorder; 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: [Essential (primary) hypertension]Onset: 832814-67-8112TcpeegwKorxd and electrolyte disorders (2 sources)Hypo-osmolality and or hyponatremia; 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: [Hypo-osmolality and hyponatremia]EpisodicHeart valve disorders (7 sources)Irregular heart vwsi19-60-1880YkkbhgcjBgvo disorders (20 sources)Moderate recurrent major depression; 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: [Major depressive disorder, recurrent, moderate]Onset: 907338-25-2018CrjlvnhZqucizt (4 sources)Onychomycosis due to dermatophyte ; 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: [Tinea unguium] 85-32-8159BpyfofzfMkztukldmmp deficiencies (20 sources)Deficiency of macronutrients; 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: [Unspecified protein- calorie malnutrition]Onset: 815762-83-6329ZkwdsgbTwxmvutitnxdli (20 sources)Primary coxarthrosis, bilateral; 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: [Bilateral primary osteoarthritis of hip]Onset: 385732-84-8325CnqudcmBaldetlktavb (20 sources)Age-related osteoporosis without current pathological fracture; 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: [Senile osteoporosis]Onset: 89-04-7717JgykirhRyeoc and ill-defined heart disease (20 sources)Severe left ventricular systolic dysfunction; 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: [Heart disease, unspecified]Onset: 640688-21-1482NwsidiiRrwzl bone disease and musculoskeletal deformities (7 sources)Ukzukiijtq32-69-1714BogktjswLixta circulatory disease (20 sources)Acrocyanosis; 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: [Other specified peripheral vascular diseases]Onset: 364848-70-2790BinffijQjxiq circulatory disease (9 sources)Raynaud's disease; 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: [Raynaud's syndrome without gangrene]25-48-1212LnozjakOffug circulatory disease (16 sources)Raynaud's phenomenon; 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: [Raynaud's syndrome without gangrene]Onset: 672370-25-3616HrawezaDolnn connective tissue disease (8 sources)Pain in toe; 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: [Pain in right toe(s)]02-13-4834Zzgcdyxe Other connective tissue disease (1 source)Swelling of lower limb; 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: [Other specified soft tissue disorders]56-15-9547EmbazblfCbche diseases of veins and lymphatics (1 source)Venous hypertension; 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: [Chronic venous hypertension (idiopathic) without complications of unspecified lower extremity]11-07-2023 ChronicOther diseases of veins and lymphatics (4 sources)Compression of vein; 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: [Compression of vein]Onset: 20-87-7924AddvsqncCnvza ear and sense organ disorders (3 sources)Mixed conductive AND sensorineural hearing loss; 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: [Mixed conductive and sensorineural hearing loss, unilateral, right ear with restricted hearing on the contralateral side]91-05-7206AxjizkkAqagh hereditary and degenerative nervous system conditions (13 sources)Restless legs; 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: [Restless legs syndrome]Onset: 566086-07-9955WbuxzjuOzgft lower respiratory disease (20 sources)Bronchiolitis obliterans organizing pneumonia; 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: [Cryptogenic organizing pneumonia]Onset: 211546-38-7202VimriwxJwpme lower respiratory disease (1 source)Dyspnea on exertion; 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: [Other forms of dyspnea]01-31-2025 EpisodicOther nervous system disorders (16 sources)Chronic pain; 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: [Other chronic pain]Onset: 03-05-2025 69-40-8843SqspxmiNrahd nervous system disorders (1 source)Paresthesia; 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: [Paresthesia of skin]20-53-3424Rhxowumj Other nervous system disorders (1 source)Postoperative pain ; 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: [Other acute postprocedural pain] 74-26-3760EelimizlJzijo skin disorders (1 source)Disorder of skin color; 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: [Disorder of pigmentation, unspecified]20-58-7025DazgebleOszbu skin disorders (4 sources)Dystrophia unguium; 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: [Nail dystrophy]63-61-7630Bfujdcha Other upper respiratory disease (20 sources)Allergic rhinitis due to pollen; 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: [Allergic rhinitis due to pollen]Onset: 486313-86-5283EkouhvxOpjim upper respiratory disease (20 sources)Allergic rhinitis; 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: [Allergic rhinitis, unspecified] Onset: 545555-61-1943YietvnuUfean upper respiratory disease (16 sources)Seasonal allergy; 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: [Other seasonal allergic rhinitis] Onset: 605004-08-3885HucmyhaQymp-; endo-; and myocarditis; cardiomyopathy (except that caused by tuberculosis or sexually transmitted disease) (20 sources)Cardiomyopathy; 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: [Cardiomyopathy, unspecified]Onset: 05-80-6850DlltzanOigabdztfq and visceral atherosclerosis (20 sources)Peripheral vascular disease, unspecified; 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: [Peripheral vascular disease, unspecified]Onset: 56-02-8396JqjkvqkPbjtqrfmn heart disease (20 sources)Pulmonary hypertension; 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: [Pulmonary hypertension, unspecified]Onset: 421163-57-3494MbkutfyOedssvfg codes; unclassified (7 sources)Tobacco bgup95-39-5086YljdguhhRfnafvjsajt failure; insufficiency; arrest (adult) (20 sources)Dependence on supplemental oxygen; 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: [Chronic hypoxemic respiratory failure]Onset: 988965-10-7543RhgocppZmlughjoeev; intervertebral disc disorders; other back problems (20 sources)Degeneration of lumbar intervertebral disc; 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: [Other intervertebral disc degeneration, lumbar region]Onset: ChronicSubstance-related disorders (20 sources)Nicotine dependence; 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: [Nicotine dependence, unspecified, uncomplicated]Onset: 151767-10-9422SvdqcuaCaplvzh on above: Added secondary to documentation in Social History.Unclassified (1 source)sent for pulm dr for something with lungs diff breathing? 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]Onset: 016824-67-7949Mreamvzw Blindness and vision defects (20 sources)Visual disturbance; 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: [Unspecified visual disturbance] Onset: 274838-08-3722NciiqqogNlknkkh obstructive pulmonary disease and bronchiectasis (7 sources)Chronic obstructive pulmonary disease and eirjwanurgukte74-11-2670Z Codes: Natural/environment (1 source)Other and unspecified overexertion or strenuous movements or postures, initial encounter; 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: [OTH AND UNS OVREXRT/STRN MVMT/POS INT]Onset: 85-86-2210EyuwdinoCkuitfzkafweg and screening for infectious disease (20 sources)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; 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: [Carrier of other specified bacterial diseases]Onset: 09-09-2023 Resolved: 527611-53-9992FmnimfpaAhax disorders (20 sources)Mood disordersOnset: 09-23-2023 Resolved: Open wounds of extremities (20 sources)Open wound of elbow; 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: [Unspecified open wound of unspecified elbow, initial encounter]Onset: 592924-91-2367TcdipnktFurhw aftercare (2 sources)Other shelter (current) drug therapy; 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: [OTH REGISTERED NURSE PRACTITIONER CURRENT DRUG THERAPY]Onset: 72-71-4753PjnutgrsFjqpb aftercare (1 source)medical terminologist (current) use of systemic steroids; 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: [REGISTERED NURSE PRACTITIONER USE OF SYSTEMIC STEROIDS]Onset: 01-88-5982FnscwthaVccag aftercare (16 sources)Long-term current use of drug therapy; 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: [Other intermodal dispatcher (current) drug therapy]Onset: 953593-55-1593OexzpjoxOtmel aftercare (16 sources)Long-term current use of systemic steroid; 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: [prison (current) use of systemic steroids]Onset: 925785-74-3560GxjbnsldVsczw connective tissue disease (2 sources)Other specified soft tissue disorders; 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: [Other specified soft tissue disorders]Onset: 26-75-6826NglztygcPcjhy diseases of veins and lymphatics (20 sources)Iliac vein compression syndrome; 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: [Compression of vein] Onset: 850013-92-9340XyipsqheYjiqm diseases of veins and lymphatics (20 sources)Vascular insufficiency; 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: [Venous insufficiency (chronic) (peripheral)]Onset: 999483-99-7462JjgkhpphDrrun ear and sense organ disorders (20 sources)Tinnitus of right ear; 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: [Tinnitus, right ear]Onset: 445287-23-3747AbxibmvrHyoqn ear and sense organ disorders (20 sources)Impacted cerumen in right ear; 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: [Impacted cerumen, right ear]Onset: 01-17-2024 Resolved: 440857-62-5310JauraldxVixva lower respiratory disease (2 sources)Shortness of breath; 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: [Shortness of breath]Onset: 34-01-9331SntbllnlMnabq lower respiratory disease (2 sources)CoughOnset: 80-37-4894ElqbaaxiYuiej lower respiratory disease (2 sources)Shortness of breathOnset: 41-17-1948PgmalzflJzoda lower respiratory disease (20 sources)Chronic cough; 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: [Chronic cough]Onset: 09-02-2016 07-22-8606HlholspnSjlml lower respiratory disease (20 sources)Nodule of lung; 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: [Solitary pulmonary nodule]Onset: 687850-75-0174NpeaamnaCapay lower respiratory disease (20 sources)Imaging of lung abnormal ; 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: [Other nonspecific abnormal finding of lung field]Onset: 09-02-2016 Resolved: 531605-16-5675ZjcpafiwWfqtn lower respiratory disease (20 sources)Hemoptysis; 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: [Hemoptysis]Onset: 03-13-2020 Resolved: 695496-71-1201JzggumvvLwukg lower respiratory disease (2 sources)Dyspnea; 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: [Shortness of breath]61-63-2297WtnyglxnLpjtd lower respiratory disease (4 sources)Other forms of dyspnea; 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: [Other forms of dyspnea]Onset: 82-95-6957AwflgtvfSuvue lower respiratory disease (1 source)Solitary pulmonary nodule; 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: [Solitary pulmonary nodule] Onset: 81-66-4845WjfcrkivOqkzm lower respiratory disease (1 source)WheezingOnset: 55-65-7473IpwbncwiEvcyv non-traumatic joint disorders (20 sources)Swollen ankle region; 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: [Effusion, unspecified ankle] Onset: 097547-90-7837RltcekktJekkj screening for suspected conditions (not mental disorders or infectious disease) (20 sources)Patient encounter status; 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: [Encounter for screening mammogram for malignant neoplasm of breast]Onset: 83-67-5814WqyrncjtQjptxi media and related conditions (20 sources)Acute suppurative otitis media; 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: [Acute suppurative otitis media without spontaneous rupture of ear drum, unspecified ear]Onset: 01-17-2024 Resolved: 370335-98-2943GlcblwqzHtggihlpg (except that caused by tuberculosis or sexually transmitted disease) (20 sources)Pneumonia due to Pseudomonas; 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: [Pneumonia due to Pseudomonas]Onset: 02-14-2024 Resolved: 329574-75-3973LfaxaluwHiddxpcu codes; unclassified (20 sources)Bilateral lower limb edema; 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: [Localized edema]Onset: 765172-50-7795ZarlgloxTvdibrvguyo failure; insufficiency; arrest (adult) (1 source)Acute respiratory failure, unspecified whether with hypoxia or hypercapnia; 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: [Acute respiratory failure, unspecified whether with hypoxia or hypercapnia]Onset: 65-41-8738PpueovdlAujjeqv and strains (4 sources)Strain of muscle, fascia and tendon of other parts of biceps, right arm, initial encounter; 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: [STRN MSC F TEND OTH PRT BIC RA INIT] Onset: 73-36-7590WjtqbyfeMvhcazasgosd (7 sources)Pseudomonas (organism)08-10-2024 Results Test NameValueInterpretationReference RangeFacilityCNPNon [id number] Telephone ([facility] MARCELA BREWER ([id number]) 1950 F Date Time Provider Department 06/17/25 ALEX RIGGINS [facility] During your visit today, we recorded the following information about you: Rj Melendez 06/17/2025 12:10 PM Signed June 17, 2025 Name: Marcela Brewer Patient Contact Number: [phone] (home) [phone] (cell) Date of last office visit: 12/11/2024 Reason For Call: patient calling in stating that after the end of the year her entresto will no longer be covered. Would like to know what other options she have Physician: Alex Riggins MD Patient was informed that non-urgent calls may be returned within the next three business days. Yes Samia Melton, JULIO 06/18/2025 11:13 AM Signed Spoke with patient: She is concerned about hazel of generic Entresto once patient assistance program has ended. Will send script to [facility] pharmacy for hazel check on generic Entresto. Patient is hoping to continue with a patient assistance program. Samia Rodrigues RN June 18, 2025 11:05 AM Samia Rodrigues RN 06/24/2025 3:03 PM Signed See additional phone encounter. Samia Rodrigues RN June 24, 2025 3:03 PM Allergies As of Date: 06/17/2025 Noted Allergy Reaction PANTOPRAZOLE 04/08/2021 14 - Other: See Comments CARBINOXAMINE-PSEUDOEPHEDRINE 09/02/2016 14 - Other: See Comments CEPHALEXIN [...] - Swelling Comments: Tongue swelling Date Reviewed: 12/11/2024 Reviewed by: Leonor Bryan MA - Fully Assessed Prescriptions as of 06/24/2025 - sacubitril-valsartan (ENTRESTO) 49-51 mg tablet Take 1 tablet by mouth two times a day. - JARDIANCE 10 mg tablet TAKE ONE TABLET BY MOUTH DAILY - metoprolol succinate ER (TOPROL XL) 50 mg 24 hr tablet Take 1 tablet by mouth two times a day. - torsemide (DEMADEX) 10 mg tablet TAKE 1 TABLET BY MOUTH DAILY NEEDED - aztreonam lysine (CAYSTON) 75 mg/mL nebulizer solution 75 mg three times a day. 3x daily for 28 days then off for 28 days - ASPIRIN CHILD ORAL Take 81 mg by mouth once daily. - atorvastatin (LIPITOR) 20 mg tablet Take 1 tablet by mouth once daily. - fluoxetine HCl (FLUOXETINE ORAL) Take 10 mg by mouth once daily. - sodium chloride (NEBUSAL) 3 % nebulizer solution INHALE CONTENTS OF 1 VIAL VIA NEBULIZER EVERY DAY - wxlhvvveaa-iidwzkxd-vfeaegtihy (BREZTRI AEROSPHERE) 160-9-4.8 mcg/actuation HFA aerosol inhaler Inhale 2 Puffs as instructed. - acetaminophen (TYLENOL) 325 mg tablet Take 650 mg by mouth every 4 hours as needed. - albuterol HFA (PROVENTIL HFA, VENTOLIN HFA) 90 mcg/actuation inhaler once daily as needed. - calcium carbonate-vitamin D3 1,000 mg-20 mcg (800 unit) tab Take 1 tablet by mouth once daily. - esomeprazole (NEXIUM) 40 mg capsule Take 40 mg by mouth twice daily. - levalbuterol (XOPENEX) 1.25 mg/3 mL nebulizer [...] Take 400 Units by mouth once daily. Problem List As Of Date 06/17/2025 Noted Resolved Protein-calorie malnutrition, unspecified sever*12/30/2022 Chronic respiratory failure with hypoxia (HCC) *12/07/2023 Ventricular tachycardia (HCC) [I47.20] 12/07/2023 Encounter Status:Closed by SAMIA RODRIGUES on 06/24/25[facility] [id number] by: BEN HAYNES on: 05/03/2025 04:04 PM Modules accepted: OrdersNormalUniversity of [facility] Hospit[facility] CampusOffice Visiton 77-15-5076Tyvnox-up [id number] Marcela Brewer 1950 F Date Provider Department Center 05/03/2025 [id number]-QDFOVTBEN HAYNES CARD [facility] Family History Problem Relation Age of Onset Other Brother Heart attack Paternal Grandfather Family Status - Relation Status Age at Father Brother Alive Paternal Grandfather Level of Service:12709 CO OFFICE/OUTPATIENT NEW MODERATE MDM 45 MINUTES (25) Reason for Visit and Comments: Congestive Heart Failure [127] - Last echo was done in Apr 2024. peripheral arterial disease [Other] - Says she got left iliac stent by Dr. Braxton at [facility] a few months ago. COPD [313] - On 4L F8UujxciUiaamhpxvg of [facility] Office/Clinic Noteon 49-71-1232Gh[facility] and Vascular Office/Clinic NoteHeart and Vascular Office/Clinic Note Chief Complaint Swelling History of Present Illness 75-year-old lady status post stenting for Januaryer comes in for evaluation. She has COPD on oxygen. She smokes. The swelling has resolved significantly with no significant swelling. Review of Systems PHQ Score Initial Depression Screen Score: 0 SCORE Constitutional: no fever, no chills, no sweats, no weakness Skin: no Jaundice, no rash, no lesions, nopetechiae ENMT: no ear pain, no sore throat, no congestion, no hoarseness Respiratory: no shortness of breath, no cough, no orthopnea, no wheezing Cardiovascular: no chest pain, no palpitations, no edema Gastrointestinal: no nausea, no vomiting, no diarrhea, no GI bleeding Genitourinary: no dysuria, no hematuria, no discharge, no pain Musculoskeletal: no back pain, no trauma Neurologic: no headache, no dizziness, no numbness, no weakness Psychiatric: no sleeping problems, no irritability, no mood swings/depression. Heme/Lymph: no bleeding tendency, no bruising tendency, no petechiae, no swollen nodes Allergy/Immunologic: no seasonal allergies, no food allergies, no recurrent infections, no impairedimmunity Additional ROS info: Except as noted in the above Review of Systems and in the History of Present Illness all other systems have been reviewed and are negative or noncontributory. Physical Exam Vitals & Measurements HR: 84(Peripheral) RR: 22 BP: 150/69 SpO2: 93% HT: 155 cm HT: 61 in WT: 105.381 lb WT: 47.8 kg BMI: 19.9 General: alert, no acute distress Skin: warm, dry Head: no trauma, normocephalic Neck: Trachea midline, no adenopathy, no tenderness Eye: normal conjunctiva, sclera clear Cardiovascular: regular rate and rhythm, normal peripheral perfusion Respiratory: Lungs CTA, respirations non labored Chest wall: no deformity. Gastrointestinal: soft, non distended, no tenderness, no guarding. Back: No tenderness, Normal ROM, Normal alignment. Extremities: no edema,no deformity, no trauma Neurological: oriented x 4, LOC appropriate for age, motor strength equal & normal bilaterally,sensation equal & normal bilaterally, speech normal Psychiatric: cooperative, affect appropriate for age, normal judgement, normal psychiatric thoughts. 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 Continue antiplatelet. Follow-up No qualifying data available Problem List/Past Medical History Ongoing Smoker Historical Anxiety Asthma COPD (Chronic Obstructive Pulmonary Disease) Assessment Test scale GERD - Gastro-esophageal reflux disease Hyperlipidemia Irregular heart beat Osteopenia Pneumonia Pseudomonas Raynauds disease Tobacco use Procedure/Surgical History Iliac venogram with contrast (11/12/2024), Appendectomy, Breast biopsy and related procedures, Bronchoscopy, Cataract extraction, Cholecystectomy, Colonoscopy, Hysterectomy, Lung biopsy sample, Tuballigation. Medications aspirin, 81 mg, Oral, Daily Ativan 0.5 mg Tab, 0.5 mg= 1 tab(s), Oral, QID atorvastatin 20 mg Tab, 20 mg= 1 tab(s), Oral, Daily Breztri Aerosphere inhalation aerosol Daliresp 500 mcg oral tablet DuoNeb 2.5 mg-0.5 mg/3 mL Soln-Inh Entresto 49 mg-51 mg oral tablet, 1 tab(s), Oral, BID FLUoxetine 10 mg Cap, 10 mg= 1 cap(s), Oral, Daily Jardiance 10 mg oral tablet, 10 mg= 1 tab(s), Oral, qAM Lamictal 25 mg Tab, 50 mg= 2 tab(s), Oral, Daily LORazepam 1 mg Tab, Oral, q8hr Mucinex 600 mg Tab-ER Nexium 40 mg Cap-EC, 40 mg= 1 cap(s), Oral, Daily Oxygen Proventil HFA Roflumilast 500 mcg oral tablet Toprol XL 50 mg Tab-ER, 50 mg= 1 tab(s), Oral, Daily vitamin E Allergies Reglan (Unknown) Rondec (Unknown) Skelaxin (Unknown) cephalexin (Unknown) erythromycin (Unknown) levoFLOXacin (Unknown) Social History Tobacco 10 or more cigarettes (1/2 pack or more)/day in last 30 days Tobacco Use:. Yes, 04/01/2025 10 or more cigarettes (1/2 pack or more)/day in last 30 days Tobacco Use:. Ready to change: No. Household tobacco concerns: No., 12/17/2024 Family History Cardiac arrest: Father.[facility] CenterComment on above:Result Comment: Electronically Signed By: Fox SMITH, Levar Arevalo\.br\Date and Time Signed: 04/01/25 11:46 EDTAuditory function testson 27-12-2151Ysiyo Ear: Mild sloping to profound mixed hearing loss Left Ear: Mild hearing loss from 250 Hz - 500 Hz rising to normal hearing from 1K Hz - 3K Hz. Mild to severe hearing loss above 3K Hz. Unable to mask bone conduction [facility] HospitalDB[facility] Breast - bilateral screeningon 17-27-1345Jn evidence of malignancy seen in either breast. Advise annual screening mammography. BREAST DENSITY SUMMARY C: The breasts are heterogeneously dense which may obscure small masses. Breast tissue can be either dense or not dense. Dense tissue makes it harder to find breast cancer on a mammogram and also raises the risk of developing breast cancer. Your breast tissue is DENSE. In some people with dense tissue, other imaging tests in addition to mammogram may help find cancers. Talk to your health care provider about breast density, risks for breast cancer, and your individual situation. BI-RADS 2 BIRADS: BIRADS - CATEGORY 2 Benign Findings. Normal interval follow-up is recommended in 12 months. OVERALL ASSESSMENT - BENIGN A letter of notification will be sent to the patient regarding the results. [employer] recommends annual mammograms for women 40 years and older. Performing Facility: [facility] [address] [place] [address] [facility] RIS CONSOLIDATEDEXAMINATION: SCREENING DIGITAL BILATERAL MAMMOGRAM WITH TOMOSYNTHESIS, 02/19/2025 TECHNIQUE: Screening mammography was performed with tomosynthesis including MLO and CC views of the bilateral breasts. Computer aided detection was used for the interpretation of this exam. COMPARISON: 14 February 2021; 10 April 2019 HISTORY: Screening. No family history of breast cancer. 8 year history of oral contraception. No HRT therapy. Prior bilateral breast biopsies, benign. TC score 17.45 FINDINGS: Positioning was limited due to the patient's body habitus. Patient had difficulty cooperating with the examination; is on full-time oxygen. BREAST COMPOSITION: The breasts are heterogeneously dense, which may obscure small masses. Bilateral breasts are composed of heterogeneously dense parenchyma. No skin thickening, nipple contour changes, suspicious calcifications, suspicious masses, areas of architectural distortion or significant interval changes are noted. Stable benign-appearing calcifications are noted in both breasts. [facility] RIS CONSOLIDATEDDBT Breast - bilateral screeningOrdered By: Bernardino Mikael on [id number] Phone: mam [place] DELIA DIGITAL SCREEN BILATERALon 02-20-2025 EXAMINATION: SCREENING DIGITAL BILATERAL MAMMOGRAM WITH TOMOSYNTHESIS, 02/19/2025 TECHNIQUE: Screening mammography was performed with tomosynthesis including MLO and CC views of the bilateral breasts. Computer aided detection was used for the interpretation of this exam. COMPARISON: 14 February 2021; 10 April 2019 HISTORY: Screening. No family history of breast cancer. 8 year history of oral contraception. No HRT therapy. Prior bilateral breast biopsies, benign. TC score 17.45 FINDINGS: Positioning was limited due to the patient's body habitus. Patient had difficulty cooperating with the examination; is on full-time oxygen. BREAST COMPOSITION: The breasts are heterogeneously dense, which may obscure small masses. Bilateral breasts are composed of heterogeneously dense parenchyma. No skin thickening, nipple contour changes, suspicious calcifications, suspicious masses, areas of architectural distortion or significant interval changes are noted. Stable benign-appearing calcifications are noted in both breasts. IMPRESSION: No evidence of malignancy seen in either breast. Advise annual screening mammography. BREAST DENSITY SUMMARY C: The breasts are heterogeneously dense which may obscure small masses. Breast tissue can be either dense or not dense. Dense tissue makes it harder to find breast cancer on a mammogram and also raises the risk of developing breast cancer. Your breast tissue is DENSE. In some people with dense tissue, other imaging tests in addition to mammogram may help find cancers. Talk to your health care provider about breast density, risks for breast cancer, and your individual situation. BI-RADS 2 BIRADS: BIRADS - CATEGORY 2 Benign Findings. Normal interval follow-up is recommended in 12 months. OVERALL ASSESSMENT - BENIGN A letter of notification will be sent to the patient regarding the results. [employer] recommends annual mammograms for women 40 years and older. Performing Facility: [facility] [address] [place], [place] [address] Interpreted by: Bernardino Youssef MD Signed by: Bernardino Youssef MD 02/20/25 Final resultMHPTRadiology, Radiologist, - 02/20/2025 EXAMINATION: SCREENING DIGITAL BILATERAL MAMMOGRAM WITH TOMOSYNTHESIS, 02/19/2025 TECHNIQUE: Screening mammography was performed with tomosynthesis including MLO and CC views of the bilateral breasts. Computer aided detection was used for the interpretation of this exam. COMPARISON: 14 February 2021; 10 April 2019 HISTORY: Screening. No family history of breast cancer. 8 year history of oral contraception. No HRT therapy. Prior bilateral breast biopsies, benign. TC score 17.45 FINDINGS: Positioning was limited due to the patient's body habitus. Patient had difficulty cooperating with the examination; is on full-time oxygen. BREAST COMPOSITION: The breasts are heterogeneously dense, which may obscure small masses. Bilateral breasts are composed of heterogeneously dense parenchyma. No skin thickening, nipple contour changes, suspicious calcifications, suspicious masses, areas of architectural distortion or significant interval changes are noted. Stable benign-appearing calcifications are noted in both breasts. IMPRESSION: No evidence of malignancy seen in either breast. Advise annual screening mammography. BREAST DENSITY SUMMARY C: The breasts are heterogeneously dense which may obscure small masses. Breast tissue can be either dense or not dense. Dense tissue makes it harder to find breast cancer on a mammogram and also raises the risk of developing breast cancer. Your breast tissue is DENSE. In some people with dense tissue, other imaging tests in addition to mammogram may help find cancers. Talk to your health care provider about breast density, risks for breast cancer, and your individual situation. BI-RADS 2 BIRADS: BIRADS - CATEGORY 2 Benign Findings. Normal interval follow-up is recommended in 12 months. OVERALL ASSESSMENT - BENIGN A letter of notification will be sent to the patient regarding the results. [employer] recommends annual mammograms for women 40 years and older. Performing Facility: [facility] [address] [place], [place] [address] Interpreted by: Bernardino Youssef MD Signed by: Bernardino Youssef MD 02/20/25 Final result [facility] ALMA DELIA DIGITAL SCREEN BILATERALEXAMINATION: SCREENING DIGITAL BILATERAL MAMMOGRAM WITH TOMOSYNTHESIS, 02/19/2025 TECHNIQUE: Screening mammography was performed with tomosynthesis including MLO and CC views of the bilateral breasts. Computer aided detection was used for the interpretation of this exam. COMPARISON: 14 February 2021; 10 April 2019 HISTORY: Screening. No family history of breast cancer. 8 year history of oral contraception. No HRT therapy. Prior bilateral breast biopsies, benign. TC score 17.45 FINDINGS: Positioning was limited due to the patient's body habitus. Patient had difficulty cooperating with the examination; is on full-time oxygen. BREAST COMPOSITION: The breasts are heterogeneously dense, which may obscure small masses. Bilateral breasts are composed of heterogeneously dense parenchyma. No skin thickening, nipple contour changes, suspicious calcifications, suspicious masses, areas of architectural distortion or significant interval changes are noted. Stable benign-appearing calcifications are noted in both breasts. IMPRESSION: No evidence of malignancy seen in either breast. Advise annual screening mammography. BREAST DENSITY SUMMARY C: The breasts are heterogeneously dense which may obscure small masses. Breast tissue can be either dense or not dense. Dense tissue makes it harder to find breast cancer on a mammogram and also raises the risk of developing breast cancer. Your breast tissue is DENSE. In some people with dense tissue, other imaging tests in addition to mammogram may help find cancers. Talk to your health care provider about breast density, risks for breast cancer, and your individual situation. BI-RADS 2 BIRADS: BIRADS - CATEGORY 2 Benign Findings. Normal interval follow-up is recommended in 12 months. OVERALL ASSESSMENT - BENIGN A letter of notification will be sent to the patient regarding the results. [employer] recommends annual mammograms for women 40 years and older. Performing Facility: [facility] [address] [place], [place] [address] Interpreted by: Bernardino Youssef MD Signed by: Bernardino Youssef MD 02/20/25 Final resultNormalMercy University Hospitals Beachwood Medical CenterRadiology Study observation (narrative)NOMS [facility]wayM[facility] DIGITAL SCREEN BILATERALOrdered By: Radiologist Radiology on 38-73-1949ASNW [place] Work Phone: dbt Breast - bilateral screeningon 45-99-5797Bqevunpew Study observation (narrative)Hussein Mcmanus [facility] Hospitalzach [facility] CampusXR CHEST 2 VWSon [id number] CHEST 2 VWSXR CHEST 2 VWS EXAM: XR CHEST 2 VWS CLINICAL INFORMATION: Dyspnea on exertion; Leg swelling. COMPARISON: 05/28/2024 FINDINGS: Again seen are changes of chronic severe COPD with chronic left upper lobe scarring. Additional chronic scarring in both lungs is also noted. There is no evidence for superimposed acute cardiopulmonary disease. There are no focal consolidations. There is no pulmonary edema. Heart size is within normal limits. IMPRESSION: 1. No acute cardiopulmonary disease. Finalized by Burke Santos MD on 02/02/2025 4:09 PMNormalSt. Charles Hospital B-TYPE NATRIURETIC PEPTIDEon 25-21-3773Mjiiohcahmg peptide B (Bld) [Mass/Vol]127 pg/mLHigh<=100St. Charles HospitalComment on above:Performed By: #### CBCA, CMP #### [facility] ([id number]) [address] [place] [address] [id number] WITH AUTO DIFFERENTIALon 83-56-4207PQOPPLAHF ABSOLUTE COUNT (10*3/UL) BY AUTOMATED COUNT0.0 10*3/uLNormal0.0-0.2PMercy Health Lorain Hospital Comment on above:Performed By: #### CBCA, CMP #### [facility] ([id number]) [address] [place] [address] 64106JNOCJZDRN RELATIVE PERCENT BY AUTOMATED COUNT0.3 %Normal ProMCoalinga State HospitalComment on above:Performed By: #### CBCA, CMP #### [facility] ([id number]) [address] [place] [address] [id number] DIFFERENTIAL TYPEAUTOMATED DIFFERENTIALNormal St. Charles HospitalComment on above:Performed By: #### CBCA, CMP #### [facility] ([id number]) [address] [place] [address] 43826Zsjsvoatynu (Bld) [#/Vol]0.0 10*3/uLNormal0.0-0.4St. Charles HospitalComment on above:Performed By: #### CBCA, CMP #### [facility] ([id number]) [address] [place] [address] 86533PKCKFCQALJC RELATIVE PERCENT BY AUTOMATED COUNT0.2 %Normal St. Charles HospitalComcorewell health greenville hospital on above:Performed By: #### CBCA, CMP #### [facility] ([id number]) [address] [place] [address] 77559Kkxziuoxeup distribution width (RBC) [Ratio]14.3 %Jskkfj85.5-15 St[facility] HospitalComment on above:Performed By: #### CBCA, CMP #### [facility] ([id number]) [address] [place] [address] 72384Bnanycaflp (Bld) [Volume fraction]43.6 %Dlnksa17-67YmwQcbczbMemorial Hermann Southeast HospitalComment on above:Performed By: #### CBCA, CMP #### [facility] ([id number]) [address] [place] [address] 19813Awuhbcwoud (Bld) [Mass/Vol]14.7 g/wECvicmf19.7-15.5PMercy Health Lorain HospitalComment on above:Performed By: #### CBCA, CMP #### [facility] ([id number]) [address] [place] [address] 19849LHYYAZDDOZM ABSOLUTE COUNT (10*3/UL) BY AUTOMATED COUNT0.4 10*3/uLLow1.0-3.5ProMedica Schuylerville HospitalComment on above:Performed By: #### CBCA, CMP #### [facility] ([id number]) [address] [place] [address] 97299AVMDOOTUSXU RELATIVE PERCENT BY AUTOMATED COUNT3.5 %Normal St. Charles HospitalComment on above:Performed By: #### CBCA, CMP #### [facility] ([id number]) [address] [place] [address] 56863WNI (RBC) [Entitic mass]31.7 azMpspne32-01XqcEhoroiSt. Charles HospitalComment on above:Performed By: #### CBCA, CMP #### [facility] ([id number]) [address] [place] [address] 06803JZFX (RBC) [Mass/Vol]33.7 g/kMFaprzx71-40EnaUpecgoMemorial Hermann Southeast HospitalComment on above:Performed By: #### CBCA, CMP #### [facility] ([id number]) [address] [place] [address] 21727BAH (RBC) [Entitic vol]94 tKQgtjay21-344ZepPsuxue [facility]remont HospitalComment on above:Performed By: #### CBCA, CMP #### [facility] ([id number]) [address] [place] [address] 34539WLSZUQKNS ABSOLUTE COUNT (10*3/UL) BY AUTOMATED COUNT0.8 10*3/uLNormal0.0-0.9St. Charles HospitalComcorewell health greenville hospital on above:Performed By: #### CBCA, CMP #### [facility] ([id number]) [address] [place] [address] 57017MFBHVZREM RELATIVE PERCENT BY AUTOMATED COUNT7.0 %Normal St. Charles HospitalComment on above:Performed By: #### CBCA, CMP #### [facility] ([id number]) [address] [place] [address] 01441RXVUSUKZRHN ABSOLUTE COUNT BY AUTOMATED COUNT9.7 10*3/uLHigh 1.5-6.6St. Charles HospitalComment on above:Performed By: #### CBCA, CMP #### [facility] ([id number]) [address] [place] [address] 52614DRIVAGQGHWB RELATIVE PERCENT BY AUTOMATED COUNT89.0 %Normal St. Charles HospitalComment on above:Performed By: #### CBCA, CMP #### [facility] ([id number]) [address] [place] [address] 46827Ooycrnzd mean volume (Bld) [Entitic vol]8.[address]7-12 [address] [facility] HospitalComment on above:Performed By: #### CBCA, CMP #### [facility] ([id number]) [address] [place] [address] 32506Ynlfkwydb (Bld) [#/Vol]400 10*3/aTEsrhks284-089LurIhfhpd [facility] HospitalComment on above:Performed By: #### CBCA, CMP #### [facility] ([id number]) [address] [place] [address] 36482PKI COUNT4.63 X10E12/LNormal3.8-5.2PMercy Health Lorain Hospital Comment on above:Performed By: #### CBCA, CMP #### [facility] ([id number]) [address] [place] [address] 85004HGL (Bld) [#/Vol]10.9 10*3/uLNormal4-11St. [facility] HospitalComment on above:Performed By: #### CBCA, CMP #### [facility] ([id number]) [address] [place] [address] 63481PYCBITZPSXDXB METABOLIC PANELon 76-38-9235Pqcpvdi [Mass/Vol]4.1 g/dLNormal3.2-5.3PUniversity of Colorado Hospital HospitalComment on above:Performed By: #### COLEMAN, CMP #### [facility] ([id number]) [address] [place] [address], [place] [address]TOS [Catalytic activity/Vol]51 U/PSfxbes27-589CwvEldlloMemorial Hermann Southeast HospitalComment on above:Performed By: #### COLEMAN, CMP #### [facility] ([id number]) [address] [place] [address], [place] [address]XGZ [Catalytic activity/Vol]22 U/LNormal<=31PMercy Health Lorain HospitalComment on above:Performed By: #### COLEMAN, CMP #### [facility] ([id number]) [address] [place] [address], [place] [address]Ahjma gap [Moles/Vol]7 mmol/LNormal5-15ProMemorial Hermann Southeast HospitalComment on above:Performed By: #### COLEMAN, CMP #### [facility] ([id number]) [address] [place] [address], [place] [address]VUE [Catalytic activity/Vol]20 U/LNormal<=41ProMemorial Hermann Southeast HospitalComment on above:Performed By: #### COLEMAN, CMP #### [facility] ([id number]) [address] [place] [address], [place] [address]Tulsruwgw [Mass/Vol]0.4 mg/dLNormal0.3-1.2PMercy Health Lorain HospitalComment on above:Performed By: #### CBCLinnette, CMP #### [facility] ([id number]) [address] [place] [address], [place] [address]Rgyffmx [Mass/Vol]9.5 mg/dLNormal8.5-10.5PUniversity of Colorado Hospital HospitalComment on above:Performed By: #### CBCLinnette, CMP #### [facility] ([id number]) [address] [place] [address] 19822Hcszfkvq [Moles/Vol]88 mmol/AVzn45-547KthExstllMemorial Hermann Southeast HospitalComment on above:Performed By: #### COLEMAN, CMP #### [facility] ([id number]) [address] [place] [address], [place] [address]KS4 [Moles/Vol]37 mmol/XBrso08-32WirTpirlt [facility] Comment on above:Performed By: #### COLEMAN, CMP #### [facility] ([id number]) [address] [place] [address] 07097Zpeipwkpwl [Mass/Vol]0.47 mg/dLNormal0.40-1.00St. Charles HospitalComment on above:Result Comment: METHOD TRACEABLE TO IDMS STANDARD Performed By: #### COLEMAN, CMP #### [facility] ([id number]) [address] [place] [address], [place] [address]JMXX (CKD-EPI) NON-RACE DEPENDENT>^90Normal>=60ProMemorial Hermann Southeast HospitalComment on above:Result Comment: Reported eGFR is based on the CKD-EPI 2020 equation that does not use a race coefficient.Performed By: #### COLEMAN, CMP #### [facility] ([id number]) [address] [place] [address] 46066Mmbjhlf [Mass/Vol]189 mg/vEIuyk76-86OwpJievabMemorial Hermann Southeast Hospital Comment on above:Performed By: #### COLEMAN, CMP #### [facility] ([id number]) [address] [place] [address], [place] [address]Vgxezcybp [Moles/Vol]3.7 mmol/LNormal3.5-5.0ProMemorial Hermann Southeast HospitalComment on above:Performed By: #### COLEMAN, CMP #### [facility] ([id number]) [address] [place] [address] 976[address]Upzalny [Mass/Vol]6.7 g/dLNormal6.0-8.0ProMemorial Hermann Southeast HospitalComment on above:Performed By: #### CBCA, CMP #### [facility] ([id number]) [address] [place] [address] 54933Jnpjol [Moles/Vol]132 mmol/UJzf613-724TfgJpqaarMemorial Hermann Southeast HospitalComment on above:Performed By: #### CBCA, CMP #### [facility] ([id number]) [address] [place] [address] 51222Dsll nitrogen [Mass/Vol]11 mg/dLNormal5-27ProMemorial Hermann Southeast HospitalComment on above:Performed By: #### CBCA, CMP #### [facility] ([id number]) [address] [place] [address] 23711Ofyxr and Vascular Office/Clinic Noteon 37-00-3270Xtnjf and Vascular Office/Clinic NoteHeart and Vascular Office/Clinic Note Chief Complaint f/u left illiac vein stent History of Present Illness Pleasant 74-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 She feels significant improvement in her symptoms after stenting. She has some residual swelling however the pain has resolved and the swelling has improved. I recommended to continue compression stockings leg elevation and exercise. She also has 2 cm splenic artery aneurysm. It is calcified. I recommended CTA in 1 year for surveillance. Review of Systems PHQ Score Initial Depression Screen Score: 0 SCORE Constitutional: no fever, no chills, no sweats, no weakness Skin: no Jaundice, no rash, no lesions, nopetechiae ENMT: no ear pain, no sore throat, no congestion, no hoarseness Respiratory: no shortness of breath, no cough, no orthopnea, no wheezing Cardiovascular: no chest pain, no palpitations, no edema Gastrointestinal: no nausea, no vomiting, no diarrhea, no GI bleeding Genitourinary: no dysuria, no hematuria, no discharge, no pain Musculoskeletal: no back pain, no trauma Neurologic: no headache, no dizziness, no numbness, no weakness Psychiatric: no sleeping problems, no irritability, no mood swings/depression. Heme/Lymph: no bleeding tendency, no bruising tendency, no petechiae, no swollen nodes Allergy/Immunologic: no seasonal allergies, no food allergies, no recurrent infections, no impairedimmunity Additional ROS info: Except as noted in the above Review of Systems and in the History of Present Illness all other systems have been reviewed and are negative or noncontributory. Physical Exam Vitals & Measurements HR: 76(Peripheral) RR: 16 BP: 170/80 SpO2: 92% HT: 155 cm HT: 61 in WT: 110.231 lb WT: 50 kg BMI: 20.81 General: alert, no acute distress Skin: warm, dry Head: no trauma, normocephalic Neck: Trachea midline, no adenopathy, no tenderness Eye: normal conjunctiva, sclera clear Cardiovascular: regular rate and rhythm, normal peripheral perfusion Respiratory: Lungs CTA, respirations non labored Chest wall: no deformity. Gastrointestinal: soft, non distended, no tenderness, no guarding. Back: No tenderness, Normal ROM, Normal alignment. Extremities: no edema,no deformity, no trauma Neurological: oriented x 4, LOC appropriate for age, motor strength equal & normal bilaterally,sensation equal & normal bilaterally, speech normal Psychiatric: cooperative, affect appropriate for age, normal judgement, normal psychiatric thoughts. Assessment/Plan 1. Splenic artery aneurysm (I72.8: Aneurysm of other specified arteries) About 2 cm calcified splenic artery aneurysm. Plan is CT in 1 year for surveillance. 2. May-Thurner syndrome (I87.1: Compression of vein) Continue aspirin and duplex in a year. Compression stockings leg elevation exercise Follow-up No qualifying data available Problem List/Past Medical History Ongoing Smoker Historical Anxiety Asthma COPD (Chronic Obstructive Pulmonary Disease) Assessment Test scale GERD - Gastro-esophageal reflux disease Hyperlipidemia Irregular heart beat Osteopenia Pneumonia Pseudomonas Raynauds disease Tobacco use Procedure/Surgical History Iliac venogram with contrast (11/12/2024), Appendectomy, Breast biopsy and related procedures, Bronchoscopy, Cataract extraction, Cholecystectomy, Colonoscopy, Hysterectomy, Lung biopsy sample, Tuballigation. Medications aspirin 325 mg Tab, 325 mg= 1 tab(s), Oral, Daily Ativan 0.5 mg Tab, 0.5 mg= 1 tab(s), Oral, QID atorvastatin 20 mg Tab, 20 mg= 1 tab(s), Oral, Daily Breztri Aerosphere inhalation aerosol Daliresp 500 mcg oral tablet DuoNeb 2.5 mg-0.5 mg/3 mL Soln-Inh Entresto 49 mg-51 mg oral tablet, 1 tab(s), Oral, BID FLUoxetine 10 mg Cap, 10 mg= 1 cap(s), Oral, Daily Jardiance 10 mg oral tablet, 10 mg= 1 tab(s), Oral, qAM Lamictal 25 mg Tab, 50 mg= 2 tab(s), Oral, Daily LORazepam 1 mg Tab, Oral, q8hr Mucinex 600 mg Tab-ER Nexium 40 mg Cap-EC, 40 mg= 1 cap(s), Oral, Daily Oxygen Proventil HFA Roflumilast 500 mcg oral tablet Toprol XL 50 mg Tab-ER, 50 mg= 1 tab(s), Oral, Daily vitamin E Allergies Reglan (Unknown) Rondec (Unknown) Skelaxin (Unknown) cephalexin (Unknown) erythromycin (Unknown) levoFLOXacin (Unknown) Social History Tobacco 10 or more cigarettes (1/2 pack or more)/day in last 30 days Tobacco Use:. Ready to change: No. Household tobacco concerns: No., 12/17/2024 10 or more cigarettes (1/2 pack or more)/day in last 30 days Tobacco Use:., 09/17/2024 Family History Family history is negativermOhioHealth Grant Medical CenterComment on above: Result Comment: Electronically Signed By: Fox SMITH, Levar Arevalo\.br\Date and Time Signed: 12/17/24 11:09 EDTUS Aorta, IVC, Iliac Duplexon [id number] Aorta, IVC, Iliac DuplexExam Date/Time: 12/13/2024 09:24 EDT Reason for Exam: I87.1;Other (please specify) Report IMPRESSION: PATENT STENT, LEFT COMMON ILIAC VEIN. CLINICAL HISTORY: I87.1 COMPARISON: NONE. FINDINGS: Color flow and Doppler identified caudal inferior vena cava. Color flow and Doppler identified within left common iliac vein proximal to stent. Color flow and Doppler identified within proximal, mid, and distal left common iliac vein stent. Color flow and Doppler visualized within left external iliac vein distal to stent. Color flow and augmentation left common femoral vein. Color flow and Doppler left common and external iliac arteries. Technical Comments: Ordering Provider: Levar Braxton FINAL REPORT Dictated: 12/13/2024 11:46 am Marco Honeycutt MD Signed (Electronic Signature): 12/13/2024 11:46 am Signed by: Marco Honeycutt MD Transcribed by: MARK ANTHONY Technologist: Jonelle [facility] [id number] Visit (CARD CHF THOMAS) MARCELA BREWER ([id number]) 1950 F Date Time Provider Department 12/11/24 3:30 PM ALEX RIGGINS CARD [facility]OMAS During your visit today, we recorded the following information about you: Pulse Respiration Blood pressure Weight 91/minute 15/minute 139/118 48.5 kg Height 1.562 m Alex Riggins MD 12/11/2024 4:05 PM Signed Heart [facility] Vascular [place] [facility] SECTION OF HEART FAILURE and CARDIAC TRANSPLANT MEDICINE OUTPATIENT VISIT DATE December 11, 2024 OUTPATIENT VISIT TYPE Established Patient PRIMARY CARE PHYSICIAN: Luiz Tadeo ([facility]) [address] [place] [address] CHIEF COMPLAINT: Follow up NURSING INTAKE (Patient?s concerns and/or recent hospitalizations/ER visits): HF Nursing Assessment: Interim Hospitalizations and/or ER visits:no Chest Pain: no Skipping or irregular heartbeats: no Shortness of breath at rest: no Shortness of breath with activity: with exertion pt on oxygen Cough: at night sinus Waking up in the middle of the night gasping for air: no sleeps with oxygen Lightheadedness or dizziness: no Feeling like you are going to pass out: no Actually passing out: no Poor energy level: no Unintentional weight gain: no Unintentional weight loss: no Swelling in your legs,feet, abdomen: left foot Filling up quickly when you eat: no HISTORY OF PRESENT ILLNESS: 74 year old woman with severe COPD, home O2 dependent with EVIN bulla, prior Mycobacterium szulgai infection, tobacco dependence, reportedly RVOT PVC's s/p ablation 2013, severe NICM based on OSH LHC 04/2021 with LVEF in low 40's per years, who established care with me in October of 2021 as a second opinion for a further reduction in LVEF to 10-15%, now with LV recovery to an EF > 50% on GDMT. We have gradually increased GDMT and she has remained on a backbone of moderate dose ARNI, empagliflozin 10mg, metoprolol succinate 50mg BID, and was briefly on MRA though off due to issues with hyponatremia. Overall she has done very well to this with interval recovery in LVEF by both CMR and TTE. Stable since last visit from cardiac standpoint. OSH TTE 04/28 with preserved EF. Had venous stenting for occlusive disease at OSH recently. PAST MEDICAL HISTORY Diagnosis Date Bronchiectasis (HCC) [...] Levofloxacin Rash, Swelling Tongue swelling CURRENT MEDICATIONS: ASPIRIN CHILD ORAL Take 81 mg by mouth once daily. empagliflozin (JARDIANCE) 10 mg tablet Take 1 tablet by mouth once daily. fluoxetine HCl (FLUOXETINE ORAL) Take 10 mg by mouth once daily. metoprolol succinate ER (TOPROL XL) 50 mg 24 hr tablet Take 1 tablet by mouth two times a day. sacubitril-valsartan (ENTRESTO) 49-51 mg tablet Take 1 tablet by mouth twice daily. acetaminophen (TYLENOL) 325 mg tablet Take 650 mg by mouth every 4 hours as needed. atorvastatin (LIPITOR) 10 mg tablet Take 10 mg by mouth once daily. calcium carbonate-vitamin D3 1,000 mg-20 mcg (800 unit) tab Take 1 tablet by mouth once daily. esomeprazole (NEXIUM) 40 mg capsule Take 40 mg by mouth twice daily. LORazepam (ATIVAN) 1 mg tablet Take 1 mg by mouth four times daily. nitroglycerin (NITRO-BID) 2 % ointment as needed. Raynaud's predniSONE (DELTASONE) 10 mg tablet Take 10 mg by mouth once daily. roflumilast (DALIRESP) 500 mcg tab Take 500 mcg by mouth once daily. Vitamin E, dl, acetate, (VITAMIN E) 400 unit capsule Take 400 Units by mouth once daily. aztreonam lysine (CAYSTON) 75 mg/mL nebulizer solution 75 mg three times a day. 3x daily for 28 days then o (more content not included)...NormalOhiohealth Grady Memorial HospitalOperative Reporton [id number] ReportOperative Report SURGERY DATE: 11/12/2024 PREOPERATIVE DIAGNOSIS: May-Thurner syndrome with leg pain and swelling POSTOPERATIVE DIAGNOSIS: May-Thurner syndrome with leg pain and swelling OPERATION: 1. Left iliac and inferior vena cava venogram 2. Intravascular ultrasound evaluation of the iliac and inferior vena cava 3. Stenting of the left iliac vein using 18 x 80 self-expanding bare-metal stent postdilated with a14 mm balloon ANESTHESIA: Conscious sedation done under my supervision, total of 35 minutes INDICATION: This is a 74-year-old lady who has May-Thurner syndrome with pain and swelling in her left lower extremity. We tried compression stockings and conservative therapy, but she continued to have significant pain and swelling in her left leg. There is no deep venous thrombosis. We took her for venogram, intravascular ultrasound, and possible intervention. PROCEDURE: The patient was taken back to the Catheterization Laboratory and placed in supine position. Appropriate cardiopulmonary monitors were set. Both groins were prepped and draped in the usual sterile surgical fashion. After time-out and safety pause, under ultrasound guidance a micro-access was placed, upsized to 5-Turkmen sheath followed by 10-Turkmen sheath. Glidewire was placed. Venogram was done from the sheath, and also we placed a catheter in the contralateral iliac. We obtained a venogram. Intravascular ultrasound evaluation of the iliac and inferior vena cava was done. There was high-grade stenosis of the very proximal common iliac vein. The surface area was 80 compared to 70 di stally, so we placed an 18 x 80 1:51 bare-metal stent and postdilated it using a 14 balloon. Completion intravascular ultrasound and venogram showed no residual stenosis. The patient tolerated the procedure very well. No complications. All counts were correct. Levar Braxton M.D. ca Dictated: 11/12/2024 [id number] Transcribed: 11/12/2024NoAvita Health System Galion HospitalComment on above:Result Comment: Electronically Signed By: Fox SMITH, Levar Arevalo\.br\Date and Time Signed: 11/26/24 08:27 EDTBMPon [id number] gap [Moles/Vol]10 mmol/LNormal 6-16[facility] St. Anne HospitalComment on above:Performed By: #### [id number] #### [facility] [address], [place] [address]Hxudowd [Mass/Vol]9.8 mg/dLNormal8.9-11.1Fisher Sinai Hospital Of BaltimoreComment on above:Performed By: #### [id number] #### [facility] [address], [place] [address]Kuargrly [Moles/Vol]90 mmol/SAtp354-796MgohbdMercy Health St. Anne HospitalComment on above:Performed By: #### [id number] #### [facility] [address], [place] [address]DP0 [Moles/Vol]36 mmol/SFufn85-69KuvnypMercy Health St. Anne Hospital Comment on above:Performed By: #### [id number] #### [facility] [address], [place] [address]Suzfmjiizl [Mass/Vol]0.6 mg/dLNormal0.5-1.3FSelect Medical OhioHealth Rehabilitation Hospital - DublinComment on above:Performed By: #### [id number] #### [facility] [address], [place] [address]Ycimxam [Mass/Vol]116 mg/wHTqskzn26-160OdzvclMercy Health St. Anne HospitalComment on above:Performed By: #### [id number] #### [facility] [address] [place] [address]Nprrjpmok [Moles/Vol]3.6 mmol/LNormal3.5-5.3FSelect Medical OhioHealth [facility] Hospital - DublinComment on above:Performed By: #### [id number] #### [facility] [address] [place] [address]Aozpbr [Moles/Vol]132 mmol/IRss244-467EeneshMercy Health St. Anne HospitalComment on above:Performed By: #### [id number] #### [facility] [address] [place] [address] 09725Kxly nitrogen [Mass/Vol]10 mg/dLNormal5-21[facility] Anne HospitalComment on above:Performed By: #### [id number] #### [facility] [address] [place] [address] 49505Rmkd nitrogen/Creatinine [Mass ratio]17 No AaynsAfwkwu64-[address] Anne HospitalComment on above:Performed By: #### [id number] #### [facility] [address] [place] [address] 33040IPJ w/Indiceson 43-22-1096Paivedbjgxd distribution width (RBC) [Ratio]14.6 %High10.9-14.2FSelect Medical OhioHealth Rehabilitation Hospital - DublinComment on above:Performed By: #### [id number] #### [facility] [address] [place] [address]Egeoslkgny (Bld) [Volume fraction]47.3 %High34.0-46.0[facility] Anne HospitalComment on above:Performed By: #### [id number] #### [facility] [address] [place] [address] 365[address]Rtqhfqpfid (Bld) [Mass/Vol]15.9 g/eHEcnbeg58.0-16.0[facility] Anne HospitalComment on above:Performed By: #### [id number] #### [facility] [address], [place] [address]UNR (RBC) [Entitic mass]31.4 ziDvjvbr84.0-34.0[facility] Anne HospitalComment on above:Performed By: #### [id number] #### [facility] [address], [place] [address]DCWL (RBC) [Mass/Vol]33.6 g/gHTedyhx34.4-36.0[facility] Anne HospitalComment on above:Performed By: #### [id number] #### [facility] [address] [place] [address] 709[address]MHR (RBC) [Entitic vol]93.4 gAJetokw72.0-100.0[facility] Anne HospitalComment on above:Performed By: #### [id number] #### [facility] [address], [place] [address]Hvjvtgkh963.0 E9/HBpltbe979.0-500.0[facility] Comment on above:Performed By: #### [id number] #### [facility] [address], [place] [address]Txmromnf mean volume (Bld) [Entitic vol]7.0 fLNormal6.4-10.[address] Anne HospitalComment on above:Performed By: #### [id number] #### [facility] [address], [place] [address]ZRF (Bld) [#/Vol]5.1 E12/LNormal4.3-5.9[facility] Anne HospitalComment on above:Performed By: #### [id number] #### [facility] [address], [place] [address]KZT size Nom (Bld)NORMALInvalid Interpretation CodeMercy Health St. Anne HospitalComment on above:Performed By: #### [id number] #### [facility] [address], [place] [address]UIH corrected for nucl RBC Auto (Bld) [#/Vol]15.7 E9/LHigh 4.0-11.0[facility] Anne HospitalComment on above:Performed By: #### [id number] #### [facility] [address], [place] [address]FDDBMOSTCSswngwe By: SYSTEM SYSTEM on 11-46-2459Eivqz gap [Moles/Vol]10 mmol/LNormal6 - 16 mEq/LRemisol ChemCalcium [Mass/Vol]9.8 mg/dL Normal8.9 - 11.1 mg/dLRemisol ChemChloride [Moles/Vol]90 mmol/HOth233 - 111 mmol/LRemisol ChemCO2 [Moles/Vol]36 mmol/LHigh21 - 31 mmol/LRemisol Chem Creatinine [Mass/Vol]0.6 mg/dLNormal0.5 - 1.3 mg/dLRemisol AaicmHHF12 mL/min/1.73 b4Giqwui>=59mL/min/1.73 i5Dbjkdcj ChemGlucose [Mass/Vol]116 mg/dL Dubduy14 - 199 mg/dLRemisol ChemPotassium [Moles/Vol]3.6 mmol/LNormal3.5 - 5.3 mmol/LRemisol ChemSodium [Moles/Vol]132 mmol/ISzd083 - 145 mmol/LRemisol Chem Urea nitrogen [Mass/Vol]10 mg/dLNormal5 - 21 mg/dLRemisol ChemUrea nitrogen/Creatinine [Mass ratio]17 mg/saRazrad37 - 20Remisol ChemDischarge Instructionson [id number] InstructionsDischarge Instructions MARCELA BREWER :1950 Visit Date:11/12/2024 Inpatient Discharge Instructions Your Care Team Admitting Physician - Fox SMITH, Levar Arevalo Reason for Your Visit I87.1, I73.9 Tests Performed CV Peripheral IVUS Initial -- Results Pending -- CV Peripheralvascular -- Results Pending -- Please visit your patient portal for your results or contact your primary care physician. This Is Your Medications List Oxygen albuterol (Proventil HFA) albuterol-ipratropium (DuoNeb 2.5 mg-0.5 mg/3 mL Soln-Inh) aspirin (aspirin 325 mg Tab) budesonide/formoterol/glycopyrrolate (Breztri Aerosphere inhalation aerosol) empagliflozin (Jardiance 10 mg oral tablet) esomeprazole (Nexium 40 mg Cap-EC) fluoxetine (FLUoxetine 10 mg Cap) guaifenesin (Mucinex 600 mg Tab-ER) lamotrigine (Lamictal 25 mg Tab) lorazepam (Ativan 0.5 mg Tab) lorazepam (LORazepam 1 mg Tab) metoprolol (Toprol XL 50 mg Tab-ER) roflumilast (Daliresp 500 mcg oral tablet) roflumilast (Roflumilast 500 mcg oral tablet) sacubitril-valsartan (Entresto 49 mg-51 mg oral tablet) vitamin E Procedure History Iliac venogram with contrast (11/12/2024), Appendectomy, Breast biopsy and related procedures, Bronchoscopy, Cataract extraction, Cholecystectomy, Colonoscopy, Hysterectomy, Lung biopsy sample, Tuballigation. Discharge Vitals Heart Rate (Peripheral) 84 Respiratory Rate 20 Blood Pressure 174/82 Height 155 cm Weight 49 kg BMI 20.4 What to do next Instructions From Your Doctor Event Name Event Result Discharge Restrictions No driving for 24 hrs, Do not operate machinery or tools, Do not make important decisions for 24 hours, Do not drink alcoholic beverages for 24 hours Wound Care Remove dressing as instructed Pending Diagnostic Test Results None Discharge Instructions start Aspirin 81mg dailyWear SARAH wrap Previously Scheduled Follow-Up Appointments Tuesday 10:45 AM EDT With: Levar Braxton MD Where: [facility] New Follow Up Appointments after Discharge Follow Up with Levar Braxton MD When: Comments: Keep scheduled appointment Where: [place] [address]- Medications What How Much When Instructions Next Dose Unchanged albuterol (Proventil HFA) Unchanged albuterol-ipratropium (DuoNeb 2.5 mg-0.5 mg/ 3 mL Soln-Inh) Unchanged aspirin (aspirin 325 mg Tab) 1 Tablets By Mouth Every day 11/13/24 Unchanged budesonide/ formoterol/ glycopyrrolate (Breztri Aerosphere inhalation aerosol) Unchanged empagliflozin (Jardiance 10 mg oral tablet) 1 Tablets By Mouth Once a day (in the morning) Unchanged esomeprazole (Nexium 40 mg Cap-EC) 1 Capsules By Mouth Every day Unchanged fluoxetine (FLUoxetine 10 mg Cap) 1 Capsules By Mouth Every day Unchanged guaifenesin (Mucinex 600 mg Tab-ER) Unchanged lamotrigine (Lamictal 25 mg Tab) 2 Tablets By Mouth Every day Unchanged lorazepam (Ativan 0.5 mg Tab) 1 Tablets By Mouth 4 times a day Unchanged lorazepam (LORazepam 1 mg Tab) By Mouth Every 8 hours Unchanged metoprolol (Toprol XL 50 mg Tab-ER) 1 Tablets By Mouth Every day Unchanged Oxygen Unchanged roflumilast (Daliresp 500 mcg oral tablet) Unchanged roflumilast (Roflumilast 500 mcg oral tablet) TAKE 1 TABLET BY MOUTH IN THE MORNING Unchanged sacubitril-valsartan (Entresto 49 mg-51 mg oral tablet) 1 Tablets By Mouth 2 times a day Unchanged vitamin E Test Results CBC BMP WBC: 15.7 E9/L High (11/12/24 12:10:00) Glucose Lvl: 116 mg/dL (11/12/24 12:10:00) RBC: 5.1 E12/L (11/12/24 12:10:00) BUN: 10 mg/dL (11/12/24 12:10:00) HGB: 15.9 gm/dL (11/12/24 12:10:00) Creatinine: 0.6 mg/dL (11/12/24 12:10:00) Hct: 47.3 % High (11/12/24 12:10:00) BUN/Creat Ratio: 17 (11/12/24 12:10:00) MCV: 93.4 fL (11/12/24 12:10:00) Sodium Lvl: 132 mmol/L Low (11/12/24 12:10:00) MCH: 31.4 pg (11/12/24 12:10:00) Potassium Lvl: 3.6 mmol/L (11/12/24 12:10:00) MCHC: 33.6 gm/dL (11/12/24 12:10:00) Chloride: 90 mmol/L Low (11/12/24 12:10:00) RDW: 14.6 % High (11/12/24 12:10:00) CO2: 36 mmol/L High (11/12/24 12:10:00) Platelet: 453 E9/L (11/12/24 12:10:00) AGAP: 10 mEq/L (11/12/24 12:10:00) MPV: 7 fL (11/12/24 12:10:00) Calcium Lvl: 9.8 mg/dL (11/12/24 12:10:00) Allergies Reglan (Unknown) Rondec (Unknown) Skelaxin (Unknown) cephalexin (Unknown) erythromycin (Unknown) levoFLOXacin (Unknown) Problems Ongoing - Any problem that you are currently receiving treatment for. Smoker Historical - Any problem that you are no longer receiving treatment for. Anxiety Asthma COPD (Chronic Obstructive Pulmonary Disease) Assessment Test scale GERD - Gastro-esophageal reflux disease Hyperlipidemia Irregular heart beat Osteopenia Pneumonia Pseudomonas Raynauds disease Tobacco use Devices Implanted/Removed This Visit Notice: You have devices implanted this visit that may (more content not included)...[facility] CenterComment on above:Result Comment: Electronically Signed By: Sabrina WEN, RN, Stephany\.br\Date and Time Signed: 11/12/24 14:13 EDTHEMATOLOGYOrdered By: SYSTEM SYSTEM on 40-00-9896Vwnvfkuiumk distribution width (RBC) [Ratio]14.6 %High10.9 - 14.2 %Remisol HemeHematocrit (Bld) [Volume fraction]47.3 %High34.0 - 46.0 %Remisol HemeHemoglobin (Bld) [Mass/Vol]15.9 g/gPIctvdr68.0 - 16.0 gm/dLRemisol HemeMCH (RBC) [Entitic mass] 31.4 ydFwkyls76.0 - 34.0 pgRemisol HemeMCHC (RBC) [Mass/Vol]33.6 g/rBTkylcm37.4 - 36.0 gm/dLRemisol HemeMCV (RBC) [Entitic vol]93.4 xSRvpsqf49.0 - 100.0 fL Remisol SsfjDzwjpduc695.0 E9/SPkzkyi047.0 - 500.0 E9/LRemisol HemePlatelet mean volume (Bld) [Entitic vol]7.0 fLNormal6.4 - 10.8 fLRemisol HemeRBC (Bld) [#/Vol] 5.1 E12/LNormal4.3 - 5.9 E12/LRemisol HemeRBC size Nom (Bld)NORMAL *NA* (11/12/24 12:10 PM)Invalid Interpretation CodeRemisol HemeWBC corrected for nucl RBC Auto (Bld) [#/Vol]15.7 E9/LHigh4.0 - 11.0 E9/LRemisol HemeInpatient Clinical Summaryon [id number] Clinical SummaryInpatient Clinical Summary [place] [id number] Clinical Summary Person Information: Name: MARCELA BERWER Age: 74 Years : 1950 Sex: Female PCP: LUIZ TADEO MD Marital Status: Race: White Ethnicity: Non- or Language: Spanish Visit Id: Visit Reason: I87.1, I73.9 Speciality: Acuity: Enc Type: Ambulatory/Same Day Surgery Med Service: Surgery Arrival: 11/12/2024 11:54:57 Discharge: Dispo Type: Address: [address] [place] [id number] Provider Notes: Diagnosis: Problems Active Smoker Smoking Status: Current Every Day Smoker Functional Status: Sensory Deficits: History of Falls: Mobility Assistance Prior to Admission: Independent ADLs: Independent Current Level of Assistance for Self-Care/Mobility: Cognitive Status: Allergies cephalexin (Unknown) Reglan (Unknown) Rondec (Unknown) Skelaxin (Unknown) erythromycin (Unknown) levoFLOXacin (Unknown) Measurements: Height: 155 cm Weight: 49 kg Blood Pressure: 174 mmHg / 82 mmHg BMI: 20.4 kg/m2 Procedures No Procedures Documented Immunizations No Immunizations Documented This Visit Final Med List: albuterol (Proventil HFA) albuterol-ipratropium (DuoNeb 2.5 mg-0.5 mg/3 mL Soln-Inh) budesonide/formoterol/glycopyrrolate (Breztri Aerosphere inhalation aerosol) empagliflozin (Jardiance 10 mg oral tablet) 1 Tablets By Mouth once a day (in the morning). esomeprazole (Nexium 40 mg Cap-EC) 1 Capsules By Mouth every day. fluoxetine (FLUoxetine 10 mg Cap) 1 Capsules By Mouth every day. guaifenesin (Mucinex 600 mg Tab-ER) lamotrigine (Lamictal 25 mg Tab) 2 Tablets By Mouth every day. lorazepam (Ativan 0.5 mg Tab) 1 Tablets By Mouth 4 times a day. lorazepam (LORazepam 1 mg Tab) By Mouth every 8 hours. metoprolol (Toprol XL 50 mg Tab-ER) 1 Tablets By Mouth every day. Oxygen roflumilast (Daliresp 500 mcg oral tablet) roflumilast (Roflumilast 500 mcg oral tablet) TAKE 1 TABLET BY MOUTH IN THE MORNING. sacubitril-valsartan (Entresto 49 mg-51 mg oral tablet) 1 Tablets By Mouth 2 times a day. vitamin E Care Team Members: Attending Physician: Levar Braxton MD Consulting Physician: Referring Physician: Levar Braxton MD Follow up: Patient Education Information: CV - Cardiovascular PCI Discharge Instructions (Custom)[facility] CenterInpatient Patient Summaryon [id number] Patient Summary Inpatient Patient Summary [place] [id number] Patient Discharge Instructions PERSON INFORMATION Name: MARCELA BREWER Date of : 1950 Current Date: 11/12/2024 13:26:31 PHYSICIANS Admitting Physician: Levar Braxton MD Primary Care Physician: LUIZ TADEO MD PCP Comment: Discharge Diagnosis: Condition at Discharge: Stable MARCELA BREWER has been given the following list of follow-up instructions, prescriptions, and patient education materials: PATIENT FOLLOW-UP INFORMATION Diet: Discharge Activity: Discharge Restrictions: No driving for 24 hrs, Do not operate machinery or tools, Do not make important decisions for 24 hours, Do not drink alcoholic beverages for 24 hours Wound Care Instructions: Remove dressing as instructed Remove Your Dressing In Days Call Your Doctor For: IF UNABLE TO CONTACT YOUR PHYSICIAN AND YOU FEEL IT IS AN EMERGENCY, GO TO THE NEAREST EMERGENCY ROOM OR CALL 911 Home Treatment: Devices/Equipment: Special Services: Additional Instructions: start Aspirin 81mg daily Wear SARAH wrap Primary Care Physician to provide the following pending test results: None Follow up: In the event that this physician does not participate in your insurance network, please consult with your insurance company to find a nearby participating provider. Comment: OSMAN Pulido CLAUDIA, have received the attached patient education materials/instructions and have verbalized understanding: Patient Signature Date Clinican/Nurse Signature Date HERE ARE THE MEDICATION CHANGES THAT OCCURRED DURING YOUR HOSPITAL STAY Medications to Continue with No Changes Other Medications albuterol (Proventil HFA) Last Dose: Next Dose: albuterol-ipratropium (DuoNeb 2.5 mg-0.5 mg/3 mL Soln-Inh) Last Dose: Next Dose: budesonide/formoterol/glycopyrrolate (Breztri Aerosphere inhalation aerosol) Last Dose: Next Dose: empagliflozin (Jardiance 10 mg oral tablet) 1 Tablets By Mouth once a day (in the morning). Last Dose: Next Dose: esomeprazole (Nexium 40 mg Cap-EC) 1 Capsules By Mouth every day. Last Dose: Next Dose: fluoxetine (FLUoxetine 10 mg Cap) 1 Capsules By Mouth every day. Last Dose: Next Dose: guaifenesin (Mucinex 600 mg Tab-ER) Last Dose: Next Dose: lamotrigine (Lamictal 25 mg Tab) 2 Tablets By Mouth every day. Last Dose: Next Dose: lorazepam (Ativan 0.5 mg Tab) 1 Tablets By Mouth 4 times a day. Last Dose: Next Dose: lorazepam (LORazepam 1 mg Tab) By Mouth every 8 hours. Last Dose: Next Dose: metoprolol (Toprol XL 50 mg Tab-ER) 1 Tablets By Mouth every day. Last Dose: Next Dose: Oxygen Last Dose: Next Dose: roflumilast (Daliresp 500 mcg oral tablet) Last Dose: Next Dose: roflumilast (Roflumilast 500 mcg oral tablet) TAKE 1 TABLET BY MOUTH IN THE MORNING. Last Dose: Next Dose: sacubitril-valsartan (Entresto 49 mg-51 mg oral tablet) 1 Tablets By Mouth 2 times a day. Last Dose: Next Dose: vitamin E Last Dose: Next Dose: Comment: MEDICATION LIST PROVIDED FOR YOU IS A LIST OF YOUR CURRENT MEDICATIONS. PLEASE CARRY THIS WITH YOU AT ALL TIMES. albuterol (Proventil HFA) albuterol-ipratropium (DuoNeb 2.5 mg-0.5 mg/3 mL Soln-Inh) budesonide/formoterol/glycopyrrolate (Breztri Aerosphere inhalation aerosol) empagliflozin (Jardiance 10 mg oral tablet) 1 Tablets By Mouth once a day (in the morning). esomeprazole (Nexium 40 mg Cap-EC) 1 Capsules By Mouth every day. fluoxetine (FLUoxetine 10 mg Cap) 1 Capsules By Mouth every day. guaifenesin (Mucinex 600 mg Tab-ER) lamotrigine (Lamictal 25 mg Tab) 2 Tablets By Mouth every day. lorazepam (Ativan 0.5 mg Tab) 1 Tablets By Mouth 4 times a day. lorazepam (LORazepam 1 mg Tab) By Mouth every 8 hours. metoprolol (Toprol XL 50 mg Tab-ER) 1 Tablets By Mouth every day. Oxygen roflumilast (Daliresp 500 mcg oral tablet) roflumilast (Roflumilast 500 mcg oral tablet) TAKE 1 TABLET BY MOUTH IN THE MORNING. sacubitril-valsartan (Entresto 49 mg-51 mg oral tablet) 1 Tablets By Mouth 2 times a day. vitamin E Pharmacy Information: Comment: PATIENT EDUCATION IN (more content not included)...NormalMercy Health St. Anne HospitaleGFRon 18-85-3748rXGD69 mL/min/1.73 b8Szhydd>=59[facility] Anne HospitalComment on above:Performed By: #### [id number] #### [facility] [address] [place], [place] [address]Wdkfl and Vascular Office/Clinic Noteon [id number] and Vascular Office/Clinic NoteHeart and Vascular Office/Clinic Note Chief Complaint Follow up after test History of Present Illness 74-year-old lady with left lower extremity swelling and pain. 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 Noninvasive testing shows his that she has mild small vessel disease. She continues to smoke she has COPD. She has medications used autonomic neuropathy and hyperemia of her feet as well. We had a long discussion about the diagnosis different treatment options. She would like to proceed with iliac venogram and stenting. I discussed the May Thurner syndromediagnosis pros and cons of different treatment options and informed consent was obtained. Review of Systems Constitutional: no fever, no chills, no sweats, no weakness Skin: no Jaundice, no rash, no lesions, nopetechiae ENMT: no ear pain, no sore throat, no congestion, no hoarseness Respiratory: no shortness of breath, no cough, no orthopnea, no wheezing Cardiovascular: no chest pain, no palpitations, no edema Gastrointestinal: no nausea, no vomiting, no diarrhea, no GI bleeding Genitourinary: no dysuria, no hematuria, no discharge, no pain Musculoskeletal: no back pain, no trauma Neurologic: no headache, no dizziness, no numbness, no weakness Psychiatric: no sleeping problems, no irritability, no mood swings/depression. Heme/Lymph: no bleeding tendency, no bruising tendency, no petechiae, no swollen nodes Allergy/Immunologic: no seasonal allergies, no food allergies, no recurrent infections, no impairedimmunity Additional ROS info: Except as noted in the above Review of Systems and in the History of Present Illness all other systems have been reviewed and are negative or noncontributory. Physical Exam Vitals & Measurements RR: 18 SpO2: 100% HT: 61 in HT: 155 cm WT: 49.8 kg WT: 109.79 lb BMI: 20.73 General: alert, no acute distress Skin: warm, dry Head: no trauma, normocephalic Neck: Trachea midline, no adenopathy, no tenderness Eye: normal conjunctiva, sclera clear Cardiovascular: regular rate and rhythm, normal peripheral perfusion Respiratory: Lungs CTA, respirations non labored Chest wall: no deformity. Gastrointestinal: soft, non distended, no tenderness, no guarding. Back: No tenderness, Normal ROM, Normal alignment. Extremities: no edema,no deformity, no trauma Neurological: oriented x 4, LOC appropriate for age, motor strength equal & normal bilaterally,sensation equal & normal bilaterally, speech normal Psychiatric: cooperative, affect appropriate for age, normal judgement, normal psychiatric thoughts. Assessment/Plan 1. 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 I discussed the May Thurner syndrome diagnosis pros and cons of different treatment options and informed consent was obtained. Follow-up No qualifying data available Patient Education Venogram Problem List/Past Medical History Ongoing No qualifying data Historical Anxiety Asthma COPD (Chronic Obstructive Pulmonary Disease) Assessment Test scale GERD - Gastro-esophageal reflux disease Hyperlipidemia Irregular heart beat Osteopenia Pneumonia Pseudomonas Raynauds disease Tobacco use Procedure/Surgical History Appendectomy, Breast biopsy and related procedures, Bronchoscopy, Cataract extraction, Cholecystectomy, Colonoscopy, Hysterectomy, Lung biopsy sample, Tubal ligation. Medications Ativan 0.5 mg Tab, 0.5 mg= 1 tab(s), Oral, QID Breztri Aerosphere inhalation aerosol Daliresp 500 mcg oral tablet DuoNeb 2.5 mg-0.5 mg/3 mL Soln-Inh Entresto 49 mg-51 mg oral tablet, 1 tab(s), Oral, BID FLUoxetine 10 mg Cap, 10 mg= 1 cap(s), Oral, Daily Jardiance 10 mg oral tablet, 10 mg= 1 tab(s), Oral, qAM Lamictal 25 mg Tab, 50 mg= 2 tab(s), Oral, Daily LORazepam 1 mg Tab, Oral, q8hr Mucinex 600 mg Tab-ER Nexium 40 mg Cap-EC, 40 mg= 1 cap(s), Oral, Daily Oxygen Proventil HFA Roflumilast 500 mcg oral tablet Toprol XL 50 mg Tab-ER, 50 mg= 1 tab(s), Oral, Daily vitamin E Allergies Reglan (Unknown) Rondec (Unknown) Skelaxin (Unknown) cephalexin (Unknown) erythromycin (Unknown) levoFLOXacin (Unknown) Social History Tobacco 10 or more cigarettes (1/2 pack or more)/day in last 30 days Tobacco Use:., 10/29/2024 10 or more cigarettes (1/2 pack or more)/day in last 30 days Tobacco Use:., 09/17/2024[facility] CenterComment on above:Result Comment: Electronically Signed By: Fox SMITH, Levar Arevalo\.br\Date and Time Signed: 10/29/24 13:26 ESTBASIC METABOLIC PANLon [id number] gap [Moles/Vol]5 mmol/L Normal5-15St. [facility] HospitalComment on above:Performed By: #### 25621-3, BMP, LIVR, CBCA #### [facility] ([id number]) [address], [address] [place], [place] [address]Tyhlsqr [Mass/Vol]9.3 mg/dLNormal8.5-10.5PMercy Health Lorain HospitalComment on above:Performed By: #### 53879-5, BMP, LIVR, CBCA #### [facility] ([id number]) [address], [address] [place], [place] [address]Odymmcaa [Moles/Vol]92 mmol/KZzg33-754PibEyzxbjSt. Charles Hospital Comment on above:Performed By: #### 64427-1, BMP, LIVR, CBCA #### [facility] ([id number]) [address], [address] [place], [place] [address]HP6 [Moles/Vol]36 mmol/OQpvn03-24QwgOczdxhMercy Health Lorain Hospital Comment on above:Performed By: #### 94645-1, BMP, LIVR, CBCA #### [facility] ([id number]) [address], [address] [place], [place] [address]Xkiwvweysn [Mass/Vol]0.52 mg/dLNormal0.40-1.00St. [facility] HospitalComment on above:Result Comment: METHOD TRACEABLE TO IDMS STANDARD Performed By: #### 99885-9, BMP, LIVR, CBCA #### [facility] ([id number]) [address], [address] [place], [place] [address]iIBJ (CKD-EPI) NON-RACE DEPENDENT>90Normal>59ProMemorial Hermann Southeast HospitalComment on above:Result Comment: Reported eGFR is based on the CKD-EPI 2020 equation that does not use a race coefficient.Performed By: #### 66764-4, BMP, LIVR, CBCA #### [facility] ([id number]) [address], [address] [place], [place] [address]Idmlyqd [Mass/Vol]104 mg/kTBnjj86-79VcfPqfhtsSt. Charles Hospital Comment on above:Performed By: #### 15652-3, BMP, LIVR, CBCA #### [facility] ([id number]) [address] [address] [place], [place] [address]Ityqwgjid [Moles/Vol]4.0 mmol/LNormal3.5-5.0St. [facility] HospitalComment on above:Performed By: #### 67917-3, BMP, LIVR, CBCA #### [facility] ([id number]) [address], [address] [place], [place] [address]Jpamcn [Moles/Vol]133 mmol/FPbd883-952GyoXzqdzqSt. Charles Hospital Comment on above:Performed By: #### 40965-4, BMP, LIVR, CBCA #### [facility] ([id number]) [address], [facility] [address] [place], [place] [address]Tgxe nitrogen [Mass/Vol]11 mg/dLNormal5-27St. Charles HospitalComment on above:Performed By: #### 41243-3, BMP, LIVR, CBCA #### [facility] ([id number]) [address], [facility] [address] [place], [place] [address]Phqmv metabolic 1998 panelon 45-69-8941Gvcis gap [Moles/Vol]5 mmol/L5 - 15 mmol/LNOMS HealthcareCalcium [Mass/Vol]9.3 mg/dL8.5 - 10.5 mg/dL NOMS HealthcareChloride [Moles/Vol]92 mmol/LLow98 - 109 mmol/LNOMS HealthcareCO2 [Moles/Vol]36 mmol/LHigh22 - 32 mmol/LNOMS HealthcareCreatine [Mass/Vol]0.52 mg/dL0.40 - 1.00 mg/dLResearch Psychiatric CenterComment on above:METHOD TRACEABLE TO IDMS STANDARDGFR/1.73 sq M.predicted among non-blacks MDRD (S/P/Bld) [Vol rate/Area] mL/min/{1.73_m2}- [facility] Psychiatric CenterComment on above: Reported eGFR is based on the CKD-EPI 2020 equation that does not use a race coefficient. PERFORMED AT [address] SUITE [facility],[place] [address] Glucose [Mass/Vol]104 mg/ySMmiu16 - 99 mg/dLNOND HealthcareInterpretation and review of laboratory resultsAbnormalNOMS HealthcarePotassium [Moles/Vol]4 mmol/L 3.5 - 5.0 mmol/LNOMS HealthcareSodium [Moles/Vol]133 mmol/CNqm381 - 146 mmol/L NOMS HealthcareUrea nitrogen [Mass/Vol]11 mg/dL5 - 27 mg/dLNOND HealthcareNOND HealthcareCBC AND AUTO DIFFon 19-80-0440MCMASYTX BASOPHIL0.1 X10E9/LNormal 0.0-0.2PMercy Health Lorain HospitalComment on above:Performed By: #### 07854-1, BMP, LIVR, CBCA #### [facility] ([id number]) [address], [address] [place], [place] [address]IHTRKOXN NEUTROPHIL5.2 X10E9/LNormal1.5-6.6ProMemorial Hermann Southeast HospitalComment on above:Performed By: #### 90661-1, BMP, LIVR, CBCA #### [facility] ([id number]) [address], [address] [place], [place] [address]Rxaadqygj/100 WBC (Bld)1.3 %NormalSt. Charles Hospital Comment on above:Performed By: #### 35659-7, BMP, LIVR, CBCA #### [facility] ([id number]) [address], [address] [place], [place] [address]Cgqxjprgoct (Bld) [#/Vol]0.2 10*3/uLNormal0.0-0.4St. Charles HospitalComment on above:Performed By: #### 68297-8, BMP, LIVR, CBCA #### [facility] ([id number]) [address] [address] [place], [place] [address]Xtxprifsonx/100 WBC (Bld)2.0 %NormalSt. Charles Hospital Comment on above:Performed By: #### 65884-7, BMP, LIVR, CBCA #### [facility] ([id number]) [address], [facility] [address] [place], [place] [address]Sxseftgpfzh distribution width (RBC) [Ratio]14.6 %Normal 11.5-15.0St. Charles HospitalComment on above:Performed By: #### 41016-4, BMP, LIVR, CBCA #### [facility] ([id number]) [address], [address] [place], [place] [address]Qsmoekknkr (Bld) [Volume fraction]43.2 %Lfxdtl69-12IunYneruxMemorial Hermann Southeast HospitalComment on above:Performed By: #### 05782-3, BMP, LIVR, CBCA #### [facility] ([id number]) [address], [address] [place] [address]Wqqbptjwru (Bld) [Mass/Vol]14.4 g/dVUrxeaq75.7-15.5PMercy Health Lorain HospitalComment on above:Performed By: #### 32004-6, BMP, LIVR, CBCA #### [facility] ([id number]) [address], [address] [place], [place] [address]Hckzdyuufyx (Bld) [#/Vol]1.8 10*3/uLNormal1.0-3.5PMercy Health Lorain HospitalComment on above:Performed By: #### 11904-8, BMP, LIVR, CBCA #### [facility] ([id number]) [address], [address] [place] [address]Gvxneuqtlov/100 WBC (Bld)21.1 %NormalSt. Charles Hospital Comment on above:Performed By: #### 79627-1, BMP, LIVR, CBCA #### [facility] ([id number]) [address], [address] [place], [place] [address]DQW (RBC) [Entitic mass]31.4 omQvrikw73-26FkrShadzpMemorial Hermann Southeast HospitalComment on above:Performed By: #### 27751-5, BMP, LIVR, CBCA #### [facility] ([id number]) [address], [address] [place], [place] [address]QLOP (RBC) [Mass/Vol]33.3 g/bDAvjwza41-46GvbMtaiqlMemorial Hermann Southeast HospitalComment on above:Performed By: #### 65405-3, BMP, LIVR, CBCA #### [facility] ([id number]) [address], [address] [place] [address]MDU (RBC) [Entitic vol]94 sCOppxrl34-412TccGbqulySt. Charles HospitalComment on above:Performed By: #### 09780-2, BMP, LIVR, CBCA #### [facility] ([id number]) [address], [address] [place] [address]Rpyyrdufz (Bld) [#/Vol]1.1 10*3/uLHigh0-0.9St. Charles HospitalComment on above:Performed By: #### 90164-0, BMP, LIVR, CBCA #### [facility] ([id number]) [address], [address] [place] [address]Lauixfwdo/100 WBC (Bld)13.3 %NormalSt. Charles Hospital Comment on above:Performed By: #### 19473-6, BMP, LIVR, CBCA #### [facility] ([id number]) [address], [address] [place], [place] [address]Waidvrdobhd/100 WBC (Bld)62.3 %NormalSt. Charles Hospital Comment on above:Performed By: #### 56688-8, BMP, LIVR, CBCA #### [facility] ([id number]) [address], [address] [place] [address]Pzdrfdru mean volume (Bld) [Entitic vol]7.[address]LNormal7-12 [address] Charles HospitalComment on above:Performed By: #### 22599-9, BMP, LIVR, CBCA #### [facility] ([id number]) [address], [address] [place] [address]Lkbwbacjm (Bld) [#/Vol]376 10*3/hLYpuakc111-267GmgFyornw Fremont HospitalComment on above:Performed By: #### 84729-5, BMP, LIVR, CBCA #### [facility] ([id number]) [address], [address] [place], [place] [address]IYC COUNT4.59 X10E12/LNormal3.80-5.20[facility] Comment on above:Performed By: #### 39448-9, BMP, LIVR, CBCA #### [facility] ([id number]) [address], [address] [place], [place] [address]XCE (Bld) [#/Vol]8.4 10*3/uLNormal4.0-11.0ProMemorial Hermann Southeast HospitalComment on above:Performed By: #### 44577-2, BMP, LIVR, CBCA #### [facility] ([id number]) [address], [address] [place] [address]YQLWJ PANELon 32-68-3529Yjzevvq [Mass/Vol]4.0 g/dLNormal3.2-5.3 St[facility] Charles HospitalComment on above:Performed By: #### 77076-4, BMP, LIVR, CBCA #### [facility] ([id number]) [address], [address] [place] [address]GIK [Catalytic activity/Vol]41 U/ZAsnhvn79-360AliZeqtcvMemorial Hermann Southeast HospitalComment on above:Performed By: #### 64986-4, BMP, LIVR, CBCA #### [facility] ([id number]) [address], [address] [place] [address]YKW [Catalytic activity/Vol]11 U/LNormal0-31ProMedMercy General HospitalComment on above:Performed By: #### 85071-6, BMP, LIVR, CBCA #### [facility] ([id number]) [address], [address] [place] [address]PZO [Catalytic activity/Vol]16 U/LNormal0-41ProMemorial Hermann Southeast HospitalComment on above:Performed By: #### 72285-5, BMP, LIVR, CBCA #### [facility] ([id number]) [address], [address] [place], [place] [address]Cqiwtdrrw [Mass/Vol]0.5 mg/dLNormal0.3-1.2PMercy Health Lorain HospitalComment on above:Performed By: #### 77684-4, BMP, LIVR, CBCA #### [facility] ([id number]) [address], [address] [place], [place] [address]Mtclrbszb.direct [Mass/Vol]0.1 mg/dLNormal0.0-0.4St. Charles HospitalComment on above:Performed By: #### 29744-5, BMP, LIVR, CBCA #### [facility] ([id number]) [address], [address] [place], [place] [address]Nxxpizx [Mass/Vol]6.3 g/dLNormal6.0-8.0St. Charles HospitalComment on above:Performed By: #### 05538-2, BMP, LIVR, CBCA #### [facility] ([id number]) [address], [address] [place] [address]Tdcpu 1996 panelon 75-00-7864Wmasmeaxhon [Mass/Vol]188 mg/dL Twmfbi985-092AvcQkszkgMemorial Hermann Southeast HospitalComment on above:Performed By: #### 15737-4, BMP, LIVR, CBCA #### [facility] ([id number]) [address], [address] [place], [place] [address]Bciszmtsexr in HDL [Mass/Vol]74 mg/dLNormal>39ProMemorial Hermann Southeast HospitalComment on above:Result Comment: HDL <40 mg/dL - High Risk HDL > or = 40mg/dL- Desirable HDL >60 mg/dL - Negative Risk Performed By: #### 19047-5, BMP, LIVR, CBCA #### [facility] ([id number]) [address], [address] [place] [address]Alhhhhxwigr in LDL [Mass/Vol]102 mg/dLNormal<130ProMemorial Hermann Southeast HospitalComment on above:Result Comment: LDL <100 mg/dL - Desirable LDL >160 mg/dL - High Risk Performed By: #### 96447-9, BMP, LIVR, CBCA #### [facility] ([id number]) [address], [address] [place] [address]Eugpgefptgg in VLDL [Mass/Vol]12 mg/dLNormal0-30ProMemorial Hermann Southeast HospitalComment on above:Performed By: #### 36208-0, BMP, LIVR, CBCA #### [facility] ([id number]) [address], [facility] [address] [place] [address]CBCOURUYVDF:HDL2.9Mzdlcp5.0-5.0ProMemorial Hermann Southeast HospitalComment on above:Performed By: #### 80814-8, BMP, LIVR, CBCA #### [facility] ([id number]) [address], [facility] [address] [place] [address]Lomloddhmzmk [Mass/Vol]61 mg/gOQkuwpu74-290MvsRtgwmj [facility]remont HospitalComment on above:Performed By: #### 69280-3, BMP, LIVR, CBCA #### [facility] ([id number]) [address], [address] [place] [address]TX PVR Lower EXT Complete Bilaton 72-05-5465CC PVR Lower EXT Complete BilatExam Date/Time: 10/05/2024 14:15 EST Reason for Exam: I73.9;PAD Report IMPRESSION: NO EVIDENCE OF SIGNIFICANT ARTERIAL STENOTIC DISEASE INVOLVING THE RIGHT AND LEFT LEGS. CLINICAL HISTORY: PAD, I73.9. COMPARISON: None available. FINDINGS: On the right, the brachial systolic pressure is 150 the high thigh pressure is 142, index 0.95 the low thigh pressure is 140, index 0.93 the calf pressure is 169, index 1.13 the posterior tibial ankle pressure is 144, index is 0.96 the dorsalis pedis ankle pressure is 171, index 1.14 and the digit pressure was not obtained. The plethysmography waveforms are essentially normal through the metatarsal and markedly abnormal at the great digit. On the left, the brachial systolic pressure is 150 the high thigh pressure is 165, index 1.10 the low thigh pressure is 172, index 1.15 the calf pressure is 177, index 1.18 the posterior tibial ankle pressure is 140, index 0.93 the dorsalis pedis ankle pressure is 174, index 1.16 and the digit pressure is 98, index 0.65 (with normal 0.7 or greater). The plethysmography waveforms are essentially normal through the metatarsal and moderately abnormal at the great digit. Ordering Provider: Levar Braxton FINAL REPORT Dictated: 10/08/2024 5:04 pm Reggie Mercedes MD Signed (Electronic Signature): 10/08/2024 5:04 pm Signed by: Reggie Mercedes MD Transcribed by: MARK ANTHONY Technologist: ELLYNKeenan Private Hospital Lower Extremity Venous Duplex Insufficiency Bilaton 28-33-4409FI Lower Extremity Venous Duplex Insufficiency BilatExam Date/Time: 10/05/2024 14:24 EST Reason for Exam: I73.9;Vascular insufficiency Report IMPRESSION: NO EVIDENCE OF REFLUX OR VENOUS THROMBOSIS OF EITHER LOWER EXTREMITY IDENTIFIED. APPROXIMATELY 4.7 CM RIGHT GATES'S CYST. EXAM: US Lower Extremity Venous Duplex Insufficiency Bilat DATE: 10/05/2024 1:04 PM CLINICAL HISTORY: Vascular insufficiency, I73.9. COMPARISON: None available. TECHNIQUE: Mckinney scale, compression, color and waveform Doppler analysis of the deep and superficial venous systems of both lower extremities was performed with augmentation. Spectral Doppler waveforms were evaluated for spontaneity, phasicity and appropriate augmentation. FINDINGS: An approximately 4.7 x 4.3 x 1.4 cm right popliteal cyst is most consistent with a Gates's cyst. There is no venous thrombus or other findings of concern identified elsewhere within either lower extremity. There is no reflux or significant superficial venous varicosities identified. Ordering Provider: Levar Braxton FINAL REPORT Dictated: 10/07/2024 4:10 pm Reggie Mercedes MD Signed (Electronic Signature): 10/07/2024 4:10 pm Signed by: Reggie Mercedes MD Transcribed by: MARK ANTHONY Technologist: ELLYNCincinnati VA Medical CenterCHEMISTRY Ordered By: SYSTEM SYSTEM on 09-69-1532Xxsurcsbsx [Mass/Vol]0.6 mg/dLNormal0.5 - 1.3 mg/dLRemisol GdpbwVYU86 mL/min/1.73 x3Nrixcp>=59mL/min/1.73 j5Ltdzthn Chem CTA Abd Aorto-bilat/ iliofemoral runoffon 01-35-5477CDZ Abd Aorto-bilat/ iliofemoral runoffExam Date/Time: 10/05/2024 15:36 EST Reason for Exam: I70.213;Vascular insufficiency Report IMPRESSION: 3 VESSEL CONTINUOUS DISTAL RUNOFF RIGHT LOWER EXTREMITY VIA ANTERIOR TIBIAL, POSTERIOR TIBIAL, AND PERONEAL ARTERIES. 3 VESSEL CONTINUOUS DISTAL RUNOFF LEFT LOWER EXTREMITY VIA ANTERIOR TIBIAL, POSTERIOR TIBIAL, AND PERONEAL ARTERIES CHOLECYSTECTOMY. CONSTIPATION. OTHER FINDINGS DISCUSSED. CTA OF THE ABDOMEN, PELVIS, AND BILATERAL LOWER EXTREMITIES. HISTORY: VASCULAR INSUFFICIENCY, I70.213. LEFT LEG SWELLING AND DISCOLORED. BILATERAL FOOT PAIN. TECHNICAL FACTORS: CTA imaging of the abdomen, pelvis, and bilateral lower extremities, were obtained and formatted as 3 mm contiguous axial images from the domes of the diaphragm to the ankles. Sagittal and coronal reconstructions were also obtained. Intravenous contrast medium administered. Comparison: No prior CT examination available for comparison. Findings: Lower chest: Cardiac size normal. No pericardial effusion. No coronary artery calcification. Lung bases clear. Liver: Normal in size, shape, and decreased in attenuation. Multiple simple cysts identified throughout right and left hepatic lobes, largest measuring approximately 2.5 x 2.8 cm, posterior segment right hepatic lobe. Bile Ducts: Normal in caliber. Gallbladder: Surgically absent. Pancreas: Normal without masses, cysts, ductal dilatation or calcification. Spleen: Normal in size without masses or calcifications. No splenules. Kidneys: Normal in size and enhancement. No hydronephrosis, masses, or stones. Adrenals: Normal. Small bowel: Normal in caliber. Report Appendix: Not visualized. Colon: Normal in caliber. Copious stool from cecum to descending colon. Peritoneum: No ascites, free air, or fluid collections. Vessels: Aorta normal in course and caliber. Diffuse atherosclerotic change identified. Ostia of the celiac artery, superior mesenteric artery single right main renal artery, left main and accessory renal artery and inferior mesenteric artery are patent. Ostial calcification identified. Portal vein, splenic vein, superior mesenteric vein are patent. On the right side, multifocal stenoses identified within patent right common, internal, and external iliac arteries. Right common femoral artery patent. Ostium of right profundofemoral and superficial femoral arteries patent. The right common femoral artery and right popliteal arteries are patent. Right anterior tibial, posterior tibial, and peroneal arteries are patent from their origin to the level of the ankle. On the left side, diffuse atherosclerotic change is found within the left common, internal, and external iliac arteries. Left profundofemoral artery is patent. Ostium left profundofemoral artery patent. Left superficial femoral artery and left popliteal artery patent. Left anterior tibial artery, posterior tibial artery, and peroneal artery patent from its origin in continuity to the level of the ankle. Lymph nodes: Retroperitoneal: No enlarged retroperitoneal lymph nodes. Mesenteric: No enlarged mesenteric lymph nodes. Pelvic: No enlarged pelvic lymph nodes. Ureters: Normal in course and caliber. No calcifications. Bladder: No wall thickening. Reproductive organs: No pelvic masses. Abdominal Wall: No hernia identified. No diastasis of rectus musculature. No edema or masses. Bones: No bone lesions. Diffuse disc space narrowing L2-L3, and L3-L4. No post operative changes. All CT scans at this facility use dose modulation, iterative reconstruction, and/or weight based dosing when appropriate to reduce radiation dose to as low as reasonably achievable. Report Ordering Provider: Levar Braxton FINAL REPORT Dictated: 10/05/2024 4:12 pm Marco Honeycutt MD Signed (Electronic Signature): 10/05/2024 4:12 pm Signed by: Marco Honeycutt MD Transcribed by: MARK ANTHONY Technologist: VangieMedStar Harbor HospitalCreatinine on 81-85-3703Akufxajclx [Mass/Vol]0.6 mg/dLNormal0.5-1.3Fisher [facility] Hospital Of BaltimoreComment on above:Performed By: #### [id number] #### [facility] [address] [place], [place] [address]bGOEjk 52-63-9030gSEC83 mL/min/1.73 x9Mcanjq>=59FishMedStar Harbor HospitalComment on above:Performed By: #### [id number] #### [facility] [address] [place], [place] [address]FLUHhz 41-80-3928EGHOEffzuhpnx (ERNIE MACIAS THOMAS) MARCELA BREWER ([id number]) 1950 F Date Time Provider Department 10/02/24 ALEX RIGGINS [facility] During your visit today, we recorded the following information about you: Rj Melendez 10/02/2024 12:24 PM Signed Allergies As of Date: 10/02/2024 Noted Allergy Reaction PANTOPRAZOLE 04/08/2021 14 - Other: See Comments CARBINOXAMINE-PSEUDOEPHEDRINE 09/02/2016 14 - Other: See Comments CEPHALEXIN [...] - Swelling Comments: Tongue swelling Date Reviewed: 06/19/2024 Reviewed by: Vicky Jimenez RN - Fully Assessed Prescriptions as of 10/10/2024 - empagliflozin (JARDIANCE) 10 mg tablet Take 1 tablet by mouth once daily. - fluoxetine HCl (FLUOXETINE ORAL) Take 10 mg by mouth once daily. - metoprolol succinate ER (TOPROL XL) 50 mg 24 hr tablet Take 1 tablet by mouth two times a day. - sodium chloride (NEBUSAL) 3 % nebulizer solution INHALE CONTENTS OF 1 VIAL VIA NEBULIZER EVERY DAY - vpkccnwmpl-tgbbehod-mivorjgwtb (BREZTRI AEROSPHERE) 160-9-4.8 mcg/actuation HFA aerosol inhaler Inhale 2 Puffs as instructed. - torsemide (DEMADEX) 10 mg tablet Take 1 tablet by mouth once daily as needed. - sacubitril-valsartan (ENTRESTO) 49-51 mg tablet Take [...] 40 mg by mouth twice daily. - levalbuterol (XOPENEX) 1.25 mg/3 mL nebulizer [...] Take 400 Units by mouth once daily. Problem List As Of Date 10/02/2024 Noted Resolved Protein-calorie malnutrition, unspecified sever*12/30/2022 Chronic respiratory failure with hypoxia (HCC) *12/07/2023 Ventricular tachycardia (HCC) [I47.20] 12/07/2023 Encounter Status:Closed by RJ MELENDEZ on 10/10/24[facility]Heart [facility]/Clinic Noteon 24-59-8021Ezbtq and Vascular Office/Clinic NoteHeart and Vascular Office/Clinic Note Chief Complaint 6 wk f/u critical lackey ischemia, BLE History of Present Illness 74-year-old lady smoker working on smoking cessation with bilateral feet erythema and redness and swelling. The swelling is worse on the left side. She was diagnosed with May Thurner syndrome. She did not have intervention done. I asked for the records from [facility] but they were not very helpful. I discussed with her smoking cessation and getting PVR venous reflux ultrasound and CT angiogram ofthe abdomen pelvis with runoff with venous phase. Venous phase is important to diagnose May Thurnersyndrome Review of Systems PHQ Score Initial Depression Screen Score: 0 SCORE Constitutional: no fever, no chills, no sweats, no weakness Skin: no Jaundice, no rash, no lesions, nopetechiae ENMT: no ear pain, no sore throat, no congestion, no hoarseness Respiratory: no shortness of breath, no cough, no orthopnea, no wheezing Cardiovascular: no chest pain, no palpitations, no edema Gastrointestinal: no nausea, no vomiting, no diarrhea, no GI bleeding Genitourinary: no dysuria, no hematuria, no discharge, no pain Musculoskeletal: no back pain, no trauma Neurologic: no headache, no dizziness, no numbness, no weakness Psychiatric: no sleeping problems, no irritability, no mood swings/depression. Heme/Lymph: no bleeding tendency, no bruising tendency, no petechiae, no swollen nodes Allergy/Immunologic: no seasonal allergies, no food allergies, no recurrent infections, no impairedimmunity Additional ROS info: Except as noted in the above Review of Systems and in the History of Present Illness all other systems have been reviewed and are negative or noncontributory. Physical Exam Vitals & Measurements HR: 85(Peripheral) RR: 16 BP: 148/73 SpO2: 98% HT: 61 in HT: 155 cm WT: 48.6 kg WT: 107.145 lb BMI: 20.23 General: alert, no acute distress Skin: warm, dry Head: no trauma, normocephalic Neck: Trachea midline, no adenopathy, no tenderness Eye: normal conjunctiva, sclera clear Cardiovascular: regular rate and rhythm, normal peripheral perfusion Respiratory: Lungs CTA, respirations non labored Chest wall: no deformity. Gastrointestinal: soft, non distended, no tenderness, no guarding. Back: No tenderness, Normal ROM, Normal alignment. Extremities: no edema,no deformity, no trauma Neurological: oriented x 4, LOC appropriate for age, motor strength equal & normal bilaterally,sensation equal & normal bilaterally, speech normal Psychiatric: cooperative, affect appropriate for age, normal judgement, normal psychiatric thoughts. Assessment/Plan 1. PAD (peripheral artery disease) (I73.9: Peripheral vascular disease, unspecified) I discussed with her smoking cessation and getting PVR venous reflux ultrasound and CT angiogram ofthe abdomen pelvis with runoff with venous phase. Venous phase is important to diagnose May Thurnersyndrome 2. May-Thurner syndrome (I87.1: Compression of vein) I discussed with her smoking cessation and getting PVR venous reflux ultrasound and CT angiogram ofthe abdomen pelvis with runoff with venous phase. Venous phase is important to diagnose May Thurnersyndrome Follow-up No qualifying data available Problem List/Past Medical History Ongoing No qualifying data Historical Anxiety Asthma COPD (Chronic Obstructive Pulmonary Disease) Assessment Test scale GERD - Gastro-esophageal reflux disease Hyperlipidemia Irregular heart beat Osteopenia Pneumonia Pseudomonas Raynauds disease Tobacco use Procedure/Surgical History Appendectomy, Breast biopsy and related procedures, Bronchoscopy, Cataract extraction, Cholecystectomy, Colonoscopy, Hysterectomy, Lung biopsy sample, Tubal ligation. Medications Ativan 0.5 mg Tab, 0.5 mg= 1 tab(s), Oral, QID Breztri Aerosphere inhalation aerosol Daliresp 500 mcg oral tablet DuoNeb 2.5 mg-0.5 mg/3 mL Soln-Inh Entresto 49 mg-51 mg oral tablet, 1 tab(s), Oral, BID FLUoxetine 10 mg Cap, 10 mg= 1 cap(s), Oral, Daily Jardiance 10 mg oral tablet, 10 mg= 1 tab(s), Oral, qAM Lamictal 25 mg Tab, 50 mg= 2 tab(s), Oral, Daily LORazepam 1 mg Tab, Oral, q8hr Mucinex 600 mg Tab-ER Nexium 40 mg Cap-EC, 40 mg= 1 cap(s), Oral, Daily Oxygen Proventil HFA Roflumilast 500 mcg oral tablet Toprol XL 50 mg Tab-ER, 50 mg= 1 tab(s), Oral, Daily vitamin E Allergies Reglan (Unknown) Rondec (Unknown) Skelaxin (Unknown) cephalexin (Unknown) erythromycin (Unknown) levoFLOXacin (Unknown) Social History Tobacco 10 or more cigarettes (1/2 pack or more)/day in last 30 days Tobacco Use:., 09/17/2024[facility] CenterComment on above:Result Comment: Electronically Signed By: Fox SMITH, Levar Arevalo\.br\Date and Time Signed: 09/17/24 12:01 ESTCNPNon 50-95-1539DSJBMokgpkfis (ERNIE [facility]) MARCELA BREWER ([id number]) 1950 F Date Time Provider Department 08/17/24 ALEX RIGGINS [facility] During your visit today, we recorded the following information about you: Rj Melendez 08/17/2024 2:33 PM Signed [employer] application paperwork received and scanned into Sara Chapman RN 08/17/2024 2:38 PM Signed Application is missing patient information, nothing needed from our office. Sara Britt RN August 17, 2024 2:37 PM Allergies As of Date: 08/17/2024 Noted Allergy Reaction PANTOPRAZOLE 04/08/2021 14 - Other: See Comments CARBINOXAMINE-PSEUDOEPHEDRINE 09/02/2016 14 - Other: See Comments CEPHALEXIN [...] - Swelling Comments: Tongue swelling Date Reviewed: 06/19/2024 Reviewed by: Vicky Jimenez RN - Fully Assessed Prescriptions as of 08/17/2024 - empagliflozin (JARDIANCE) 10 mg tablet Take 1 tablet by mouth once daily. - fluoxetine HCl (FLUOXETINE ORAL) Take 10 mg by mouth once daily. - metoprolol succinate ER (TOPROL XL) 50 mg 24 hr tablet Take 1 tablet by mouth two times a day. - sodium chloride (NEBUSAL) 3 % nebulizer solution INHALE CONTENTS OF 1 VIAL VIA NEBULIZER EVERY DAY - kcqjliewfg-vwuiqhhi-myuvitlzcw (BREZTRI AEROSPHERE) 160-9-4.8 mcg/actuation HFA aerosol inhaler Inhale 2 Puffs as instructed. - torsemide (DEMADEX) 10 mg tablet Take 1 tablet by mouth once daily as needed. - sacubitril-valsartan (ENTRESTO) 49-51 mg tablet Take [...] 40 mg by mouth twice daily. - levalbuterol (XOPENEX) 1.25 mg/3 mL nebulizer [...] Take 400 Units by mouth once daily. Problem List As Of Date 08/17/2024 Noted Resolved Protein-calorie malnutrition, unspecified sever*12/30/2022 Chronic respiratory failure with hypoxia (HCC) *12/07/2023 Ventricular tachycardia (HCC) [I47.20] 12/07/2023 Encounter Status:Closed by SARA BRITT on 08/17/24[facility] [id number] (ALBARO) MARCELA BREWER ([id number]) 1950 F Date Time Provider Department 08/14/24 YUKI CAR During your visit today, we recorded the following information about you: Kinjal Pruett 08/14/2024 3:20 PM Signed Yuli from [facility] is calling Yuki Car MD today to request images and results from 02.22.24 of the [facility]. Please call Yuli for any additional questions. Fax number: [phone] Patient has been identified by name and birthdate. Duration of symptoms: N/A Person calling: Yuli Call patient at: [phone] Was an appointment scheduled: No Closing statement: Results or non-symptom based questions: Thank you for calling [facility], your call will be returned within the next business day. Thank you, Kinjal [facility] 08/15/2024 9:01 AM Signed Called and spoke with Yuli at [facility], provided phone numbers for medical records and [facility] film library. Allergies As of Date: 08/14/2024 Noted Allergy Reaction PANTOPRAZOLE 04/08/2021 14 - Other: See Comments CARBINOXAMINE-PSEUDOEPHEDRINE 09/02/2016 14 - Other: See Comments CEPHALEXIN [...] - Swelling Comments: Tongue swelling Date Reviewed: 06/19/2024 Reviewed by: Vicky Jimenez RN - Fully Assessed Reason for Visit: Results [95] Prescriptions as of 08/15/2024 - empagliflozin (JARDIANCE) 10 mg tablet Take 1 tablet by mouth once daily. - fluoxetine HCl (FLUOXETINE ORAL) Take 10 mg by mouth once daily. - metoprolol succinate ER (TOPROL XL) 50 mg 24 hr tablet Take 1 tablet by mouth two times a day. - sodium chloride (NEBUSAL) 3 % nebulizer solution INHALE CONTENTS OF 1 VIAL VIA NEBULIZER EVERY DAY - gapryptwqe-dwiwiclq-aeftijhipu (BREZTRI AEROSPHERE) 160-9-4.8 mcg/actuation HFA aerosol inhaler Inhale 2 Puffs as instructed. - torsemide (DEMADEX) 10 mg tablet Take 1 tablet by mouth once daily as needed. - sacubitril-valsartan (ENTRESTO) 49-51 mg tablet Take [...] 40 mg by mouth twice daily. - levalbuterol (XOPENEX) 1.25 mg/3 mL nebulizer [...] Take 400 Units by mouth once daily. Problem List As Of Date 08/14/2024 Noted Resolved Protein-calorie malnutrition, unspecified sever*12/30/2022 Chronic respiratory failure with hypoxia (HCC) *12/07/2023 Ventricular tachycardia (HCC) [I47.20] 12/07/2023 Encounter Status:Closed by PAOLO SHI on 08/15/24[facility]Cl[facility] Noteon [id number] and Vascular Office/Clinic NoteHeart and Vascular Office/Clinic Note Chief Complaint here to [facility] care History of Present Illness 74-year-old lady smoker working on smoking cessation with bilateral feet erythema and redness and swelling. She does not have testing here at [facility] however she had a PVR she had a CAT scan with venous phase that shows evidence of May Thurner syndrome. I discussed with her that I want to get her imaging studies both the actual images and the reports from [facility] and [facility]. Review of Systems Constitutional: no fever, no chills, no sweats, no weakness Skin: no Jaundice, no rash, no lesions, nopetechiae ENMT: no ear pain, no sore throat, no congestion, no hoarseness Respiratory: no shortness of breath, no cough, no orthopnea, no wheezing Cardiovascular: no chest pain, no palpitations, no edema Gastrointestinal: no nausea, no vomiting, no diarrhea, no GI bleeding Genitourinary: no dysuria, no hematuria, no discharge, no pain Musculoskeletal: no back pain, no trauma Neurologic: no headache, no dizziness, no numbness, no weakness Psychiatric: no sleeping problems, no irritability, no mood swings/depression. Heme/Lymph: no bleeding tendency, no bruising tendency, no petechiae, no swollen nodes Allergy/Immunologic: no seasonal allergies, no food allergies, no recurrent infections, no impairedimmunity Additional ROS info: Except as noted in the above Review of Systems and in the History of Present Illness all other systems have been reviewed and are negative or noncontributory. Physical Exam Vitals & Measurements HR: 78(Peripheral) RR: 16 BP: 182/89 SpO2: 92% HT: 61 in HT: 155 cm WT: 49 kg WT: 108.026 lb BMI: 20.4 General: alert, no acute distress Skin: warm, dry Head: no trauma, normocephalic Neck: Trachea midline, no adenopathy, no tenderness Eye: normal conjunctiva, sclera clear Cardiovascular: regular rate and rhythm, normal peripheral perfusion Respiratory: Lungs CTA, respirations non labored Chest wall: no deformity. Gastrointestinal: soft, non distended, no tenderness, no guarding. Back: No tenderness, Normal ROM, Normal alignment. Extremities: no edema,no deformity, no trauma Neurological: oriented x 4, LOC appropriate for age, motor strength equal & normal bilaterally,sensation equal & normal bilaterally, speech normal Psychiatric: cooperative, affect appropriate for age, normal judgement, normal psychiatric thoughts. Assessment/Plan 1. Critical limb ischemia of both lower extremities (I70.223: Atherosclerosis of [place] arteries ofextremities with rest pain, bilateral legs) Past medical therapy. Walking cessation. Obtain imaging studies including CTA and PVR. 2. May-Thurner syndrome (I87.1: Compression of vein) CTV images. Continue compression therapy. Follow-up No qualifying data available Problem List/Past Medical History Ongoing No qualifying data Historical Anxiety Asthma COPD (Chronic Obstructive Pulmonary Disease) Assessment Test scale GERD - Gastro-esophageal reflux disease Hyperlipidemia Irregular heart beat Osteopenia Pneumonia Pseudomonas Raynauds disease Tobacco use Procedure/Surgical History Appendectomy, Breast biopsy and related procedures, Bronchoscopy, Cataract extraction, Cholecystectomy, Colonoscopy, Hysterectomy, Lung biopsy sample, Tubal ligation. Medications Ativan 0.5 mg Tab Atrovent HFA Breztri Aerosphere inhalation aerosol Daliresp 500 mcg oral tablet DuoNeb 2.5 mg-0.5 mg/3 mL Soln-Inh Entresto 49 mg-51 mg oral tablet Jardiance 10 mg oral tablet Lamictal 25 mg Tab Mucinex 600 mg Tab-ER Nexium 40 mg Cap-EC Oxygen Proventil HFA Symbicort 160/4.5 inhalation aerosol with adapter, 2 puff(s), Inhalation, BID Toprol XL 50 mg Tab-ER vitamin E Allergies Reglan (Unknown) Rondec (Unknown) Skelaxin (Unknown) cephalexin (Unknown) erythromycin (Unknown) levoFLOXacin (Unknown) Social History Tobacco 10 or more cigarettes (1/2 pack or more)/day in last 30 days Tobacco Use:., 08/13/2024NoAvita Health System Galion HospitalComment on above:Result Comment: Electronically Signed By: Fox SMITH, Levar FBenita\.br\Date and Time Signed: 08/13/24 13:40 ESTCNPNon [id number] ([facility]) MARCELA BREWER ([id number]) 1950 F Date Time Provider Department 08/08/24 ALEX RIGGINS [facility] During your visit today, we recorded the following information about you: Rj Melendez 08/08/2024 2:29 PM Signed [employer] paperwork received and scanned into Edel Trimble RN 08/08/2024 3:26 PM Signed Provider application completed. Patient and provider application faxed for re-enrollment. Edel Spivey RN August 08, 2024 3:26 PM Allergies As of Date: 08/08/2024 Noted Allergy Reaction PANTOPRAZOLE 04/08/2021 14 - Other: See Comments CARBINOXAMINE-PSEUDOEPHEDRINE 09/02/2016 14 - Other: See Comments CEPHALEXIN [...] - Swelling Comments: Tongue swelling Date Reviewed: 06/19/2024 Reviewed by: Vicky Jimenez RN - Fully Assessed Prescriptions as of 10/10/2024 - empagliflozin (JARDIANCE) 10 mg tablet Take 1 tablet by mouth once daily. - fluoxetine HCl (FLUOXETINE ORAL) Take 10 mg by mouth once daily. - metoprolol succinate ER (TOPROL XL) 50 mg 24 hr tablet Take 1 tablet by mouth two times a day. - sodium chloride (NEBUSAL) 3 % nebulizer solution INHALE CONTENTS OF 1 VIAL VIA NEBULIZER EVERY DAY - vqrmgikgll-otrmhtag-yfgxppoqkr (BREZTRI AEROSPHERE) 160-9-4.8 mcg/actuation HFA aerosol inhaler Inhale 2 Puffs as instructed. - torsemide (DEMADEX) 10 mg tablet Take 1 tablet by mouth once daily as needed. - sacubitril-valsartan (ENTRESTO) 49-51 mg tablet Take [...] 40 mg by mouth twice daily. - levalbuterol (XOPENEX) 1.25 mg/3 mL nebulizer [...] Take 400 Units by mouth once daily. Problem List As Of Date 08/08/2024 Noted Resolved Protein-calorie malnutrition, unspecified sever*12/30/2022 Chronic respiratory failure with hypoxia (HCC) *12/07/2023 Ventricular tachycardia (HCC) [I47.20] 12/07/2023 Encounter Status:Closed by RJ MELENDEZ on 10/10/24[facility] [id number] ([facility] MARCELA BREWER ([id number]) 1950 F Date Time Provider Department 07/23/24 [facility] During your visit today, we recorded the following information about you: Rj Melendez 07/23/2024 2:18 PM Signed Paperwork received and scanned into Edel Trimble RN 07/23/2024 4:51 PM Signed Paperwork printed. Provider application completed and faxed to [facility] for PAP. Edel Spivey RN July 23, 2024 4:51 PM Allergies As of Date: 07/23/2024 Noted Allergy Reaction PANTOPRAZOLE 04/08/2021 14 - Other: See Comments CARBINOXAMINE-PSEUDOEPHEDRINE 09/02/2016 14 - Other: See Comments CEPHALEXIN [...] - Swelling Comments: Tongue swelling Date Reviewed: 06/19/2024 Reviewed by: Vicky Jimenez RN - Fully Assessed Prescriptions as of 10/10/2024 - empagliflozin (JARDIANCE) 10 mg tablet Take 1 tablet by mouth once daily. - fluoxetine HCl (FLUOXETINE ORAL) Take 10 mg by mouth once daily. - metoprolol succinate ER (TOPROL XL) 50 mg 24 hr tablet Take 1 tablet by mouth two times a day. - sodium chloride (NEBUSAL) 3 % nebulizer solution INHALE CONTENTS OF 1 VIAL VIA NEBULIZER EVERY DAY - kzshjsuokm-afcrvyns-ffirtyvetm (BREZTRI AEROSPHERE) 160-9-4.8 mcg/actuation HFA aerosol inhaler Inhale 2 Puffs as instructed. - torsemide (DEMADEX) 10 mg tablet Take 1 tablet by mouth once daily as needed. - sacubitril-valsartan (ENTRESTO) 49-51 mg tablet Take [...] 40 mg by mouth twice daily. - levalbuterol (XOPENEX) 1.25 mg/3 mL nebulizer [...] Take 400 Units by mouth once daily. Problem List As Of Date 07/23/2024 Noted Resolved Protein-calorie malnutrition, unspecified sever*12/30/2022 Chronic respiratory failure with hypoxia (HCC) *12/07/2023 Ventricular tachycardia (HCC) [I47.20] 12/07/2023 Encounter Status:Closed by RJ MELENDEZ on 10/10/24[facility] HospitalXR CHEST 2 VWSon [id number] CHEST 2 VWSXR CHEST 2 VWS XR CHEST 2 VWS HISTORY: Shortness of breath, history of cirrhosis COMPARISON: Chest x-ray 04/21/2024, 09/23/2023, 09/22/2023, CT chest 03/19/2024 FINDINGS: PA and lateral upright films obtained. Redemonstration of left upper quadrant abdominal vascular calcifications without any interval change. Aortic arch calcifications. Redemonstration of extensor upper bullae and blebs.. Bilateral flattening of the diaphragm, increased lucency, and increased AP diameter which is seen COPD. The cardiomediastinal silhouette is within normal limits. No pneumothorax or pleural effusion. No consolidation. IMPRESSION: * Extensive emphysematous changes similar to the previous exam.. Approved by Hermila Gonzalez DO on 05/29/2024 9:03 AM Kal Pulido MD have personally reviewed the image(s) and agree with and/or edited the report Finalized by Kal Alcaraz MD on 05/29/2024 10:06 AMNormalProMedica Kaiser Permanente San Francisco Medical CenterCTA ABD/PELV W IVCONon 03-30-2024* * *Final Report* * * DATE OF EXAM: Mar 30 2024 11:17AM [facility] 0311 - CTA ABD/PELV W IVCON / [...] any questions regarding this interpretation, please call [phone]. If you are unable to reach us at the number above, please feel free to contact [facility] at [phone]. [id number]^AGFA_IDC^SI^ACNCCFRadiology, Radiologist, - 03/30/2024 * * *Final Report* * * DATE OF EXAM: Mar 30 2024 11:17AM [facility] 0311 - CTA ABD/PELV W [...] any questions regarding this interpretation, please call [phone]. If you are unable to reach us at the number above, please feel free to contact [facility] eRadiology at [phone]. [id number]^AGFA_IDC^SI^ACN NOMS HealthcareCTA Abdominal vessels and Pelvis vessels W contrast Isiah 03-93-1390XEBHCATGGG: Poor opacification of the venous system, possibly [...] any questions regarding this interpretation, please call [phone]. If you are unable to reach us at the number above, please feel free to contact [facility] eRadiology at [phone].DIVISION OF RADIOLOGY* * *Final Report* * * DATE OF EXAM: Mar 30 2024 11:17AM [facility] 0311 - CTA ABD/PELV W [...] fractures or destructive bone lesion. DIVISION OF RADIOLOGYProvider, [facility] [place] - 03/30/2024 * * *Final Report* * * DATE OF EXAM: Mar 30 2024 11:17AM [facility] 0311 - CTA ABD/PELV W [...] any questions regarding this interpretation, please call [phone]. If you are unable to reach us at the number above, please feel free to contact [facility] at [phone]. [facility] Panel InformationOrdered By: Ccf Provider on 03-30-2024 [facility] Panel Informationon 63-23-6933Hlcdbsscv Study observation (narrative)[facility] RESPIRATORY CULTUREon 84-22-8889Bgsuqyvg identified Respiratory culture Nom (Sput)GRAM STAIN >25 WHITE BLOOD CELLS/LPF 0 SQUAMOUS [...] Antibiotic Interpretation TERESA Status CEFEPIME S F [ S = SUSCEPTIBLE R = RESISTANT I = INTERMEDIATE S-DO = Susceptible-dose dependent NS = Non-suscceptible NO = No Interpretation ] Organism: PSEUDOMONAS AERUGINOSA Antibiotic Interpretation TERESA Status CEFEPIME S FSusceptibleProMedica Kaiser Permanente San Francisco Medical CenterComment on above:Performed By: #### 624-7 #### [facility] ([id number]) [address] [place] [address], [address] [place], [place] [address]JT LOW DOSE LUNG SCREENINGon 32-75-9762MF LOW DOSE LUNG SCREENINGCT LOW DOSE LUNG SCREENING CLINICAL INFORMATION: Screening [...] intensity projection images generated to increase the sensitivityof pulmonary nodule detection. All CT scans at this facility use dose modulation, iterative reconstruction, and/or weight based dosing when appropriate to reduce radiation dose to as low as reasonably achievable. Automated exposure control was utilized. Computer aided detection for pulmonary nodules?was performed utilizing [employer] software.? FINDINGS: Diagnostic quality: Satisfactory. Evaluation of [...] on 03/24/2024 10:18 AM 2 LDCT 1 YrNormalSt. Charles HospitalCBC AND AUTO DIFFon 02-18-2024 Eosinophils (Bld) [#/Vol]0.1 10*3/uLNormal0.0-0.4[facility] Comment on above:Performed By: #### CBCA, CMP #### [facility] ([id number]) [address] [place] [address] 83604Idujtaldaoa/100 WBC (Bld)1.0 %NormalSt. Charles Hospital Comment on above:Performed By: #### CBCA, CMP #### [facility] ([id number]) [address] [place] [address] 05439Iuqpxtxljyo distribution width (RBC) [Ratio]14.9 %Normal 11.5-15.0St. Charles HospitalComment on above:Performed By: #### CBCA, CMP #### [facility] ([id number]) [address] [place] [address] 98881Ccqxvbcstl (Bld) [Volume fraction]41.2 %Eslwoq08-79LssVpgxocSt. Charles HospitalComment on above:Performed By: #### CBCA, CMP #### [facility] ([id number]) [address] [place] [address] 67035Irkdbxjmjv (Bld) [Mass/Vol]14.2 g/jFAgiqrf22.7-15.5PMercy Health Lorain HospitalComment on above:Performed By: #### CBCA, CMP #### [facility] ([id number]) [address] [place] [address] 01729SYAFMAGMQB, ATYPICAL1.0 %[facility] Comment on above:Performed By: #### CBCA, CMP #### [facility] ([id number]) [address] [place] [address] 30570Wulfylzrjlc (Bld) [#/Vol]1.8 10*3/uLNormal1.0-3.5PMercy Health Lorain HospitalComment on above:Performed By: #### CBCA, CMP #### [facility] ([id number]) [address] [place] [address] 63839Pksrmehnxee/100 WBC (Bld)16.0 %NormalSt. Charles Hospital Comment on above:Performed By: #### CBCA, CMP #### [facility] ([id number]) [address] [place] [address] 52777IAS (RBC) [Entitic mass]31.6 ngXwlimp76-66OqwJleqwvSt. Charles HospitalComment on above:Performed By: #### CBCA, CMP #### [facility] ([id number]) [address] [place] [address] 79772FKOK (RBC) [Mass/Vol]34.5 g/sZIalzvz08-04OutIbdwycMemorial Hermann Southeast HospitalComment on above:Performed By: #### CBCA, CMP #### [facility] ([id number]) [address] [place] [address] 30041KFX (RBC) [Entitic vol]92 jELgsxxl48-052YxaMeuqki [facility]remont HospitalComment on above:Performed By: #### CBCA, CMP #### [facility] ([id number]) [address] [place] [address] 85365Hvbrueyrz (Bld) [#/Vol]1.3 10*3/uLHigh0-0.9St. Charles HospitalComment on above:Performed By: #### CBCA, CMP #### [facility] ([id number]) [address] [place] [address] 59654Howonkyea/100 WBC (Bld)12.0 %NormalProMemorial Hermann Southeast Hospital Comment on above:Performed By: #### CBCA, CMP #### [facility] ([id number]) [address] [place] [address] 10172Ybeglildsiv (Bld) [#/Vol]7.6 10*3/uLHigh1.5-6.6St. [facility] HospitalComment on above:Performed By: #### CBCA, CMP #### [facility] ([id number]) [address] [place] [address] 53191Wfuzgqji mean volume (Bld) [Entitic vol]8.[address]7-12 [address] [facility] HospitalComment on above:Performed By: #### CBCA, CMP #### [facility] ([id number]) [address] [place] [address] 56238Yapbrfkws (Bld) [#/Vol]391 10*3/jJTbbbbp929-532OgwCriyia Fremont HospitalComment on above:Performed By: #### CBCA, CMP #### [facility] ([id number]) [address] [place] [address] [place] [address]LPQ COUNT4.50 X10E12/LNormal3.80-5.20[facility] Comment on above:Performed By: #### CBCLinnette, CMP #### [facility] ([id number]) [address] [place] [address] 80753VXB ZWCHZKPVQO48.0 %NormalProMemorial Hermann Southeast HospitalComment on above:Performed By: #### CBCA, CMP #### [facility] ([id number]) [address] [place] [address] 91165JPWKFIBKDJW6+AbnormalNONEPMercy Health Lorain HospitalComment on above:Performed By: #### CBCLinnette, CMP #### [facility] ([id number]) [address] [place] [address] 76042VZCYCCGE7+AbnormalNONEPMercy Health Lorain HospitalComment on above:Performed By: #### CBCLinnette, CMP #### [facility] ([id number]) [address] [place] [address] 97178TLS (Bld) [#/Vol]10.8 10*3/uLNormal4.0-11.0ProMemorial Hermann Southeast HospitalComment on above:Performed By: #### CBCLinnette, CMP #### [facility] ([id number]) [address] [place] [address] 16578PBVIKQOPSXPWX METABOLIC PANELon 71-64-7793Mmgwrzn [Mass/Vol]3.7 g/dLNormal3.2-5.3PMercy Health Lorain HospitalComment on above:Performed By: #### CBCA, CMP #### [facility] ([id number]) [address] [place] [address] 60372CUI [Catalytic activity/Vol]53 U/ZGeakco90-587YohVkiddaMemorial Hermann Southeast HospitalComment on above:Performed By: #### CBCA, CMP #### [facility] ([id number]) [address] [place] [address], [place] [address]FFY [Catalytic activity/Vol]12 U/LNormal0-31PMercy Health Lorain HospitalComment on above:Performed By: #### CBCLinnette, CMP #### [facility] ([id number]) [address] [place] [address], [place] [address]Elcux gap [Moles/Vol]7 mmol/LNormal5-15ProMemorial Hermann Southeast HospitalComment on above:Performed By: #### CBCLinnette, CMP #### [facility] ([id number]) [address] [place] [address], [place] [address]EYC [Catalytic activity/Vol]14 U/LNormal0-41ProMemorial Hermann Southeast HospitalComment on above:Performed By: #### COLEMAN, CMP #### [facility] ([id number]) [address] [place] [address], [place] [address]Gznfjrpdx [Mass/Vol]0.6 mg/dLNormal0.3-1.2PMercy Health Lorain HospitalComment on above:Performed By: #### COLEMAN, CMP #### [facility] ([id number]) [address] [place] [address], [place] [address]Ottpxya [Mass/Vol]8.9 mg/dLNormal8.5-10.5PMercy Health Lorain HospitalComment on above:Performed By: #### COLEMAN, CMP #### [facility] ([id number]) [address] [place] [address], [place] [address]Qzzggyqe [Moles/Vol]94 mmol/VEoe45-721JbtIkgcukMemorial Hermann Southeast HospitalComment on above:Performed By: #### CBCLinnette, CMP #### [facility] ([id number]) [address] [place] [address], [place] [address]BO8 [Moles/Vol]30 mmol/PRlkrcj22-95AihXufizqMercy Health Lorain Hospital Comment on above:Performed By: #### CBCLinnette, CMP #### [facility] ([id number]) [address] [place] [address] 44707Aaxkxrxxxk [Mass/Vol]0.50 mg/dLNormal0.40-1.00ProMemorial Hermann Southeast HospitalComment on above:Result Comment: METHOD TRACEABLE TO IDMS STANDARD Performed By: #### COLEMAN, CMP #### [facility] ([id number]) [address] [place] [address] 92773tBOM (CKD-EPI) NON-RACE DEPENDENT>90Normal>59ProMemorial Hermann Southeast HospitalComment on above:Result Comment: Reported eGFR is based on the CKD-EPI 2020 equation that does not use a race coefficient.Performed By: #### COLEMAN, CMP #### [facility] ([id number]) [address] [place] [address] 80[address]Tswqbza [Mass/Vol]100 mg/jGKynx18-46VszRjmssqMemorial Hermann Southeast Hospital Comment on above:Performed By: #### COLEMAN, CMP #### [facility] ([id number]) [address] [place] [address] 805[address]Qgqcjopnw [Moles/Vol]3.4 mmol/LLow3.5-5.0ProMemorial Hermann Southeast HospitalComment on above:Performed By: #### COLEMAN, CMP #### [facility] ([id number]) [address] [place] [address] 25188Hbbtvqv [Mass/Vol]7.2 g/dLNormal6.0-8.0St. Charles HospitalComment on above:Performed By: #### COLEMAN, CMP #### [facility] ([id number]) [address] [place] [address] 94166Qorvbx [Moles/Vol]131 mmol/LDsm012-980HldEixatnMemorial Hermann Southeast HospitalComment on above:Performed By: #### COLEMAN, CMP #### [facility] ([id number]) [address] [place] [address]14[address]Gyir nitrogen [Mass/Vol]10 mg/dLNormal5-St. Charles HospitalComment on above:Performed By: #### CBCA, CMP #### [facility] ([id number]) [address] [place] [address] 917[address]WPNVV RESPIRATORY CULTUREon 60-17-1448Cljdanla identified Respiratory culture Nom (Sput)GRAM STAIN >25 WHITE BLOOD CELLS/LPF 10 to [...] PIPERACILLIN S <=4 F TOBRAMYCIN S <=1 FSusceptibleProMemorial Hermann Southeast HospitalComment on above: Performed By: #### 624-7 #### [facility] ([id number]) [address] [place] [address], [address] [place], [place] [address]NR.doppler Thoracic and Abdominal Aorta and Inferior Vena Cava and Illiac vessels limitedon 44-19-5205Zgu[address] [address] Vein Report Signed Patient: MARCELA BREWER MR#: [id number] : 1950 Acct:[id number] Age/Sex: 73 / F ADM Date: 01/10/24 Loc: [facility] Attending Dr: Lucian Aquino M.D. Ordering Physician: Lucian Aquino M.D. Date of Service: 01/10/24 Procedure(s): [facility] Ultrasound IVC LMT Accession Number(s): [id number] cc: Luiz Tadeo M.D.; Lucian Aquino M.D. Patient Name: MARCELA BREWER MR#: [id number] : 1950 Exam Date: 01/10/2024 Ordering Doctor: [...] 14:38 Dictated By: Maximino Carrillo M.D. Signed By: 01/11/24 1439 DD/ 1438 TD/TT: Bike Designer:TBHRadiology, Radiologist, - 01/12/2024 [place] [address] Vein Report Signed Patient: MARCELA BREWER MR#: [id number] : 1950 Acct:[id number] Age/Sex: 73 / F ADM Date: 01/10/24 Loc: VC Attending Dr: Lucian Aquino M.D. Ordering Physician: Lucian Aquino M.D. Date of Service: 01/10/24 Procedure(s): VC Ultrasound IVC LMT Accession Number(s): [id number] cc: Luiz Tadeo M.D.; Lucian Aquino M.D. Patient Name: MARCELA BREWER MR#: [id number] : 1950 Exam Date: 01/10/2024 Ordering Doctor: Ada-Staff Physician PROCEDURE: VC ULTRASOUND IVC LMT COMPARISON: [...] 14:38 Dictated By: Maximino Carrillo M.D. Signed By: 01/11/241438 DD/ 37 TD/TT: Bike Designer: [facility] HealthcareRadiology Study observation (narrative)[facility] Psychiatric CenterUS.doppler Thoracic and Abdominal Aorta and Inferior Vena Cava and Illiac vessels limited Ordered By: Radiologist Radiology on 55-11-0133[facility] [employer] Work Phone: VC EXT VENOUS REFLUX ZAHIRA LMTDon [phone], [place] [address] Vein Report Signed Patient: MARCELA BREWER MR#: [id number] : 1950 Acct:[id number] Age/Sex: 73 / F ADM Date: 01/10/24 Loc: VC Attending Dr: AdamaStaff Physician Urbano Ordering Physician: Lucian Aquino M.D. Date of Service: 01/10/24 Procedure(s): VC EXT Venous Reflux ZAHIRA LMTD Accession Number(s): [id number] cc: Luiz Tadeo M.D.; Lucian Aquino M.D. Patient Name: MARCELA BREWER MR#: [id number] : 1950 Exam Date: 01/10/2024 Ordering Doctor: [...] chronic thrombus visualized Compressibility: Normal Flow: Normal Construction Administrator: Dist/med calf 2.5mm with 0s reflux. Tech Note: Patent varicose vein dist/med thigh 2.4mm with 0s reflux. CONCLUSION: 1. No abnormal or suspicious dilation or reflux within the superficial veins of the right and left lower extremity. 2. No appreciable deep vein thrombus. Dictated by: Marcella Limon M.D. on 01/10/2024 at 15:51 Approved by: Marcella Limon M.D. on 01/10/2024 at 15:53 Dictated By: Marcella Limon M.D. Signed By: 01/10/24 1554 DD/ 1554 TD/TT: Bike Designer:LACYadioljonnathan, Radiologist, - 01/10/2024 [place] [address] Vein Report Signed Patient: MARCELA BREWER MR#: [id number] : 1950 Acct:[id number] Age/Sex: 73 / F ADM Date: 01/10/24 Loc: VC Attending Dr: AdamaStaff Physician Urbano Ordering Physician: Lucian Aquino M.D. Date of Service: 01/10/24 Procedure(s): VC EXT Venous Reflux ZAHIRA LMTD Accession Number(s): [id number] cc: Luiz Tadeo M.D.; Lucian Aquino M.D. Patient Name: MARCELA BREWER MR#: [id number] : 1950 Exam Date: 01/10/2024 Ordering Doctor: [...] chronic thrombus visualized Compressibility: Normal Flow: Normal Construction Administrator: Dist/med calf 2.5mm with 0s reflux. Tech Note: Patent varicose vein dist/med thigh 2.4mm with 0s reflux. CONCLUSION: 1. No abnormal or suspicious dilation or reflux within the superficial veins of the right and left lower extremity. 2. No appreciable deep vein thrombus. Dictated by: Marcella Limon M.D. on 01/10/2024 at 15:51 Approved by: Marcella Limon M.D. on 01/10/2024 at 15:53 Dictated By: Marcella Limon M.D. Signed By: 01/10/24 1554 DD/ 53 TD/TT: Bike Designer: [facility] HealthcareRadiology Study observation (narrative)[facility] HealthcareVC EXT VENOUS REFLUX ZAHIRA LMTDOrdered By: Radiologist Radiology on 79-31-5872[facility] Work Phone: bASIC METABOLIC PANLon 48-48-3103Qbuzo gap [Moles/Vol] 4 mmol/LLow5-15Pro[facility] Parkview HealthComment on above:Performed By: #### COLEMAN, 80393-7, CMP, 46799-2, 69318-4 #### [facility] ([id number]) [address] [place], [place] [address]Tjjdxim [Mass/Vol]9.1 mg/dLNormal8.5-10.5ProMedica Parkview HealthComment on above:Performed By: #### COLEMAN, 12929-3, CMP, 64323-7, 09332-0 #### [facility] ([id number]) [address], [address] [place], [place] [address]Naxyibdx [Moles/Vol]98 mmol/DBeyeii69-536HtlTxdqtq [facility] HospitalComment on above:Performed By: #### COLEMAN, 66955-6, CMP, 38424-6, 30111-1 #### [facility] ([id number]) [address], [address] [place], [place] [address]QE7 [Moles/Vol]36 mmol/NWgal89-38KiiZcsczwUniversity Hospitals Ahuja Medical Center Comment on above:Performed By: #### COLEMAN, 76446-4, CMP, 29361-7, 74752-8 #### [facility] ([id number]) [address], [address] [place], [place] [address]Iggxwpyzua [Mass/Vol]0.49 mg/dLNormal0.40-1.00ProAvita Health System Ontario HospitalComment on above:Result Comment: METHOD TRACEABLE TO IDMS STANDARD Performed By: #### COLEMAN, 80940-4, CMP, 95888-0, 45612-2 #### [facility] ([id number]) [address], [address] [place], [place] [address]tAJF (CKD-EPI) NON-RACE DEPENDENT>90Normal>59ProAvita Health System Ontario HospitalComment on above:Result Comment: Reported eGFR is based on the CKD-EPI 2021 equation that does not use a race coefficient.Performed By: #### COLEMAN, 59384-9, CMP, 29483-9, 39756-5 #### [facility] ([id number]) [address] [place], [place] [address]Tullwqs [Mass/Vol]96 mg/aWGthber90-42UzuJxkgnlFort Hamilton Hospital Comment on above:Performed By: #### COLEMAN, 42654-1, CMP, 36785-0, 75560-2 #### [facility] ([id number]) [address], [address] [place], [place] [address]Rfgemqnrz [Moles/Vol]3.5 mmol/LNormal3.5-5.0ProMedica Miranda HospitalComment on above:Performed By: #### CBCA, 39641-8, CMP, 74038-5, 16323-4 #### [facility] ([id number]) [address], [address] [place], [place] [address]Aegrzc [Moles/Vol]138 mmol/XAegqif072-103PytYsjjpe Miranda HospitalComment on above:Performed By: #### COLEMAN, 72076-2, CMP, 82112-3, 55835-7 #### [facility] ([id number]) [address], [address] [place], [place] [address]Pebi nitrogen [Mass/Vol]12 mg/dLNormal5-27ProMedica Miranda HospitalComment on above:Performed By: #### CBCLinnette, 38091-2, CMP, 02237-7, 74277-7 #### [facility] ([id number]) [address], [address] [place], [place] [address]Fnnxbfnpscu peptide B [Mass/Vol]on 88-94-7390Gnobpnxpdhu peptide B (Bld) [Mass/Vol]96 pg/mLNormal<100.0ProMedica Cadwell HospitalComment on above:Performed By: #### CBCA, 42909-9, CMP, 42618-0, 70023-7 #### [facility] ([id number]) [address], [address] [place], [place] [address]AXWRP METABOLIC PANLon 46-76-0243Epxhu gap [Moles/Vol]8 mmol/L Normal5-15ProMedica Miranda HospitalComment on above:Performed By: #### CBCA, 29305-2, CMP, 64767-2, 91734-0 #### [facility] ([id number]) [address], [address] [place], [place] [address]Ictrons [Mass/Vol]9.3 mg/dLNormal8.5-10.5PUniversity Hospitals Ahuja Medical CenterComment on above:Performed By: #### COLEMAN, 95949-8, CMP, 44087-8, 93419-7 #### [facility] ([id number]) [address], [address] [place], [place] [address]Zvcijnrz [Moles/Vol]98 mmol/VKyxunv41-580LxrBrglih [facility] HospitalComment on above:Performed By: #### COLEMAN, 88153-4, CMP, 04236-7, 27094-1 #### [facility] ([id number]) [address], [address] [place], [place] [address]ZF8 [Moles/Vol]30 mmol/RIfofpt53-44IgcLlduea [facility] Comment on above:Performed By: #### COLEMAN, 94671-5, CMP, 29488-3, 67692-8 #### [facility] ([id number]) [address], [address] [place], [place] [address]Lverdbunwc [Mass/Vol]0.49 mg/dLNormal0.40-1.00ProAvita Health System Ontario HospitalComment on above:Result Comment: METHOD TRACEABLE TO IDMS STANDARD Performed By: #### COLEMAN, 15440-9, CMP, 80846-4, 81045-3 #### [facility] ([id number]) [address], [address] [place], [place] [address]pKHV (CKD-EPI) NON-RACE DEPENDENT>90Normal>59ProOhiohealth Grove City Methodist Hospital HospitalComment on above:Result Comment: Reported eGFR is based on the CKD-EPI 2020 equation that does not use a race coefficient.Performed By: #### COLEMAN, 42342-1, CMP, 88043-5, 54329-3 #### [facility] ([id number]) [address], [address] [place], [place] [address]Euqrtlx [Mass/Vol]92 mg/eZTqqhxj35-97JjrLwazax [facility] Comment on above:Performed By: #### COLEMAN, 37649-9, CMP, 62552-3, 56558-5 #### [facility] ([id number]) [address], [address] [place], [place] [address]Nauwyrjxo [Moles/Vol]4.2 mmol/LNormal3.5-5.0ProUniversity Hospitals Cleveland Medical Centerca Cadwell HospitalComment on above:Performed By: #### COLEMAN, 24571-3, CMP, 51164-7, 84814-9 #### [facility] ([id number]) [address], [address] [place], [place] [address]Jczlkf [Moles/Vol]136 mmol/YIjmpes362-007DmsWvhsoz [place] HospitalComment on above:Performed By: #### COLEMAN, 40800-2, CMP, 69095-2, 62259-4 #### [facility] ([id number]) [address], [address] [place], [place] [address]Crsi nitrogen [Mass/Vol]10 mg/dLNormal5-27ProOhiohealth [facility] City Methodist Hospital HospitalComment on above:Performed By: #### COLEMAN, 96891-9, CMP, 42162-5, 30341-3 #### [facility] ([id number]) [address], [address] [place], [place] [address]WWH AND AUTO DIFFon 73-79-0239WNOQJZEB BASOPHIL0.0 X10E9/LNormal 0.0-0.2Pro[facility]ica [facility]well HospitalComment on above:Performed By: #### CBCLinnette, 13407- 9, CMP, 44165-3, 14016-3 #### [facility] ([id number]) [address], [address] [place], [place] [address]UGLEXXLX NEUTROPHIL5.5 X10E9/LNormal1.5-6.6ProAv[facility] Health System Ontario HospitalComment on above:Performed By: #### CBCA, 42966-8, CMP, 61235-5, 13338-2 #### [facility] ([id number]) [address], [address] [place], [place] [address]Itxrpakqp/100 WBC (Bld)0.6 %[facility] Comment on above:Performed By: #### CBCA, 84946-7, CMP, 86723-3, 34220-6 #### [facility] ([id number]) [address], [address] [place], [place] [address]Tpaioqlsqzc (Bld) [#/Vol]0.0 10*3/uLNormal0.0-0.4ProOhiohealth [facility] Methodist Hospital HospitalComment on above:Performed By: #### CBCA, 95823-5, CMP, 76168-6, 71010-4 #### [facility] ([id number]) [address], [address] [place], [place] [address]Zjdbojkjooy/100 WBC (Bld)0.1 %NormalFort Hamilton Hospital Comment on above:Performed By: #### CBCA, 16403-2, CMP, 32836-5, 21189-7 #### [facility] ([id number]) [address], [address] [place], [place] [address]Wmkigeldvhx distribution width (RBC) [Ratio]14.6 %Normal 11.5-15.0ProOhiohealth [facility] City Methodist Hospital HospitalComment on above:Performed By: #### CBCA, 29740-7, CMP, 31099-3, 43315-1 #### [facility] ([id number]) [address], [address] [place], [place] [address]Kghbgoiuir (Bld) [Volume fraction]45.4 %Ziirxz03-00EmwRckrhi [place] HospitalComment on above:Performed By: #### CBCA, 23744-9, CMP, 30657-0, 09496-3 #### [facility] ([id number]) [address], [address] [place], [place] [address]Kdrcllsrmv (Bld) [Mass/Vol]14.9 g/nGCaeryt54.7-15.5POhioHealth Arthur [facility], [facility] HospitalComment on above:Performed By: #### CBCA, 36566-8, CMP, 98198-4, 54497-8 #### [facility] ([id number]) [address], [address] [place], [place] [address]Qxmrzmxyxho (Bld) [#/Vol]0.8 10*3/uLLow1.0-3.5PUniversity Hospitals Ahuja Medical CenterComment on above:Performed By: #### CBCA, 99168-6, CMP, 38827-7, 80898-5 #### [facility] ([id number]) [address], [address] [place], [place] [address]Oltfokrloba/100 WBC (Bld)10.3 %NormalProOhiohealth Grove City Methodist Hospital Hospital Comment on above:Performed By: #### CBCA, 03123-6, CMP, 67889-6, 35001-9 #### [facility] ([id number]) [address], [address] [place], [place] [address]UGQ (RBC) [Entitic mass]30.9 qnMmtsbk02-78GktYhfbqn [place] HospitalComment on above:Performed By: #### CBCA, 80834-1, CMP, 79448-3, 30492-2 #### [facility] ([id number]) [address], [address] [place], [place] [address]FXNI (RBC) [Mass/Vol]32.8 g/hAGtzqye97-08UtlJzgoig [place] HospitalComment on above:Performed By: #### CBCA, 69777-9, CMP, 04989-5, 49758-5 #### [facility] ([id number]) [address], [address] [place], [place] [address]LSN (RBC) [Entitic vol]94 vBTrzxdi48-721MfqLwwngq [place] HospitalComment on above:Performed By: #### CBCA, 89994-4, CMP, 34427-3, 42643-9 #### [facility] ([id number]) [address], [address] [place], [place] [address]Slzhokurx (Bld) [#/Vol]1.2 10*3/uLHigh0-0.9ProAv[facility] HospitalComment on above:Performed By: #### CBCA, 46106-1, CMP, 39430-3, 48239-9 #### [facility] ([id number]) [address], [address] [place], [place] [address]Njgvfemgk/100 WBC (Bld)15.6 %NormalFort Hamilton Hospital Comment on above:Performed By: #### CBCA, 92466-6, CMP, 37247-4, 86015-6 #### [facility] ([id number]) [address], [address] [place], [place] [address]Ifeimrjrhrb/100 WBC (Bld)73.4 %NormalFort Hamilton Hospital Comment on above:Performed By: #### CBCA, 79944-8, CMP, 58719-3, 78488-5 #### [facility] ([id number]) [address], [address] [place], [place] [address]Ttsxdntx mean volume (Bld) [Entitic vol]8.3 fLNormal7-12 [facility] Park[facility] HealthComment on above:Performed By: #### CBCA, 57759-3, CMP, 83587-9, 29996-3 #### [facility] ([id number]) [address], [address] [place], [place] [address]Fqupnegmy (Bld) [#/Vol]335 10*3/fQOtwvwf571-541AktFdgxjl [place] HospitalComment on above:Performed By: #### CBCA, 82231-3, CMP, 38070-9, 71328-2 #### [facility] ([id number]) [address], [address] [place], [place] [address]EVW COUNT4.82 X10E12/LNormal3.80-5.20Pro[facility] Comment on above:Performed By: #### CBCA, 55424-0, CMP, 72854-5, 19018-7 #### [facility] ([id number]) [address], [address] [place], [place] [address]VCG (Bld) [#/Vol]7.4 10*3/uLNormal4.0-11.0Pro[facility] HospitalComment on above:Performed By: #### CBCA, 16994-2, CMP, 29992-8, 94770-4 #### [facility] ([id number]) [address], [address] [place], [place] [address]MRSIX RESPIRATORY CULTUREon 98-26-7499Khfpzjzv identified Respiratory culture Nom (Sput)GRAM STAIN 10 to 24 WHITE BLOOD CELLS/LPF 0 to 1 SQUAMOUS EPITHELIAL CELLS/LPF 0 to 1 CILIATED EPITHELIAL CELLS/LPF RARE GRAM POSITIVE COCCI CULTURE RESULTS NORMAL ORAL FLORANormalFort Hamilton HospitalComment on above:Performed By: #### CBCA, 23088-2, CMP, 00791-3, 40339-1 #### [facility] ([id number]) [address], [address] [place], [place] [address]XYTQCM BLOOD GASon 86-70-1396VMNLF'S TESTNormalProAvita Health System Ontario HospitalComment on above:Performed By: #### CBCA, 84244-3, CMP, 25827-8, 82584-5 #### [facility] ([id number]) [address], [address] [place], [place] [address]Gccr excess Calc (Bld) [Moles/Vol]5.0 mmol/LHigh0.0-2.0Pro[facility] HospitalComment on above:Performed By: #### CBCLinnette, 79172-3, CMP, 37497-0, 32985-6 #### [facility] ([id number]) [address], [address] [place], [place] [address]Ufjs zvdphxpuwum13.6 [degF]Qxaqhr71.0ProUniversity Hospitals [facility] Medical Centerca [facility] Comment on above:Performed By: #### CBCLinnette, 68792-2, CMP, 28583-4, 16750-0 #### [facility] ([id number]) [address], [address] [place], [place] [address]MKH3 (Bld) [Moles/Vol]34.1 mmol/LHigh20.0-24.0Pro[facility] HospitalComment on above:Performed By: #### COLEMAN, 23510-4, CMP, 08860-9, 48748-2 #### [facility] ([id number]) [address], [address] [place], [place] [address]DRHC. O2 CONC.32 %NormalProOhiohealth Grove City Methodist Hospital HospitalComment on above:Performed By: #### CBCLinnette, 81763-0, CMP, 23615-1, 11959-5 #### [facility] ([id number]) [address], [address] [place], [place] [address]Gsdkub saturation in Blood35.0 %Low>80.0Pro[facility]ica [facility] HospitalComment on above:Performed By: #### CBCA, 47300-3, CMP, 08725-0, 99747-6 #### [facility] ([id number]) [address], [address] [place], [place] [address]DFYCTW SOURCENCNormalProUniversity Hospitals Cleveland Medical Centerca Cadwell HospitalComment on above: Performed By: #### CBCA, 60726-8, CMP, 76477-4, 88750-8 #### [facility] ([id number]) [address], [address] [place], [place] [address]LPN3, HPPJUE61.0 WCZBXwxa77-43XvbKrcjjm [facility] HospitalComment on above:Performed By: #### CBCA, 74359-6, CMP, 37112-8, 43469-6 #### [facility] ([id number]) [address], [address] [place], [place] [address]KH, VENOUS7.350Vvlzpn0.320-7.420ProMedica [facility] HospitalComment on above:Performed By: #### CBCA, 63952-2, CMP, 83626-6, 72874-0 #### [facility] ([id number]) [address], [address] [place], [place] [address]VE4, LLGDKL35 PMDUOdj18-97YtgTgrzhb [facility] HospitalComment on above:Performed By: #### CBCA, 89414-4, CMP, 15764-1, 50486-4 #### [facility] ([id number]) [address], [address] [place], [place] [address]POMVRN SITEN/ANormalProMedica Cadwell HospitalComment on above: Performed By: #### CBCA, 09620-0, CMP, 16648-5, 44952-2 #### [facility] ([id number]) [address], [address] [place], [place] [address]CCLECW TYPEVENOUSNormalProMedica Cadwell HospitalComment on above:Performed By: #### CBCA, 23017-7, CMP, 03784-4, 69486-7 #### [facility] ([id number]) [address], [address] [place], [place] [address]FX CHEST 1 VWon 07-76-3181TN CHEST 1 VWXR CHEST 1 VW XR CHEST 1 VW [...] Aamir Coombs DO on 09/23/2023 11:57 AM I, Kal Alcaraz MD have personally reviewed the image(s) and agree with and/or edited the report Finalized by Kal Alcarza MD on 09/23/2023 12:15 PMNormalProAvita Health System [facility] Hospital BLOOD CULTUREon 16-78-0698Vahoxldg identified Aer cx Nom (Bld)CULTURE RESULTS NO GROWTH 5 DAYSNormUniversity Hospitals TriPoint Medical CenterBacteria identified Aer cx Nom (Bld)CULTURE RESULTS NO GROWTH 5 DAYSNormalFort Hamilton HospitalCBC AND AUTO DIFFon 09-22-2023 ABSOLUTE BASOPHIL0.0 X10E9/LNormal0.0-0.2ProMedica Parkview HealthComment on above:Performed By: #### CBCA, 75133-4, CMP, 39141-9, 28340-9 #### [facility] ([id number]) [address], [address] [place], [place] [address]JYLMJMGE NEUTROPHIL8.0 X10E9/LHigh1.5-6.6ProAv[facility] HospitalComment on above:Performed By: #### CBCA, 96140-7, CMP, 45846-4, 68349-4 #### [facility] ([id number]) [address], [address] [place], [place] [address]Xwxvctuoz/100 WBC (Bld)0.4 %NormalProAvita Health System [facility] Hospital Comment on above:Performed By: #### CBCA, 55468-3, CMP, 65448-7, 40639-5 #### [facility] ([id number]) [address], [address] [place], [place] [address]Zfbiitylsue (Bld) [#/Vol]0.0 10*3/uLNormal0.0-0.4ProAv[facility] HospitalComment on above:Performed By: #### CBCA, 50168-1, CMP, 21364-3, 42167-3 #### [facility] ([id number]) [address], [address] [place], [place] [address]Lbixsjvbcpa/100 WBC (Bld)0.3 %NormalProAvita Health System [facility] Hospital Comment on above:Performed By: #### CBCA, 16541-3, CMP, 90660-6, 15012-3 #### [facility] ([id number]) [address] [address] [place], [place] [address]Otfnfordkli distribution width (RBC) [Ratio]14.8 %Normal 11.5-15.0ProAvita Health System [facility] HospitalComment on above:Performed By: #### CBCA, 26844-0, CMP, 17194-2, 32573-9 #### [facility] ([id number]) [address] [place], [place] [address]Smwailimoy (Bld) [Volume fraction]46.7 %Ziwlks51-76ZthXwhbgoAvita Health System Ontario HospitalComment on above:Performed By: #### CBCA, 98355-5, CMP, 10356-5, 35317-7 #### [facility] ([id number]) [address], [facility] [address] [place], [place] [address]Raapnltcor (Bld) [Mass/Vol]15.6 g/wGUfoa94.7-15.5PUniversity Hospitals Ahuja Medical CenterComment on above:Performed By: #### CBCA, 70878-5, CMP, 81178-9, 86488-8 #### [facility] ([id number]) [address] [address] [place], [place] [address]Uulykqumoij (Bld) [#/Vol]0.4 10*3/uLLow1.0-3.5ProMedica Cadwell HospitalComment on above:Performed By: #### CBCA, 96376-6, CMP, 20953-5, 30000-1 #### [facility] ([id number]) [address], [address] [place], [place] [address]Juaafiarkmc/100 WBC (Bld)4.2 %NormalProOhiohealth Grove [facility] Hospital Comment on above:Performed By: #### CBCA, 53297-1, CMP, 53107-3, 07150-7 #### [facility] ([id number]) [address], [address] [place], [place] [address]MEE (RBC) [Entitic mass]31.1 irKzkevy77-57DfdRclnyn [place] HospitalComment on above:Performed By: #### CBCA, 86791-8, CMP, 62464-0, 12437-7 #### [facility] ([id number]) [address], [address] [place], [place] [address]WPIL (RBC) [Mass/Vol]33.4 g/yYRpleyl19-76XotClwouw [place] HospitalComment on above:Performed By: #### CBCA, 31438-1, CMP, 14228-5, 81959-2 #### [facility] ([id number]) [address], [address] [place], [place] [address]VDQ (RBC) [Entitic vol]93 gOWhabqa96-071DrsSundal [place] HospitalComment on above:Performed By: #### CBCA, 39978-6, CMP, 98110-0, 99019-8 #### [facility] ([id number]) [address], [address] [place], [place] [address]Pbzrcnwvd (Bld) [#/Vol]0.6 10*3/uLNormal0-0.9ProOhiohealth Grove City Methodist Hospital HospitalComment on above:Performed By: #### CBCA, 68757-7, CMP, 07102-9, 01643-8 #### [facility] ([id number]) [address], [address] [place], [place] [address]Aecsfqvco/100 WBC (Bld)6.6 %NormalFort [facility] Hospital Comment on above:Performed By: #### CBCA, 67600-0, CMP, 18232-7, 54847-4 #### [facility] ([id number]) [address], [address] [place], [place] [address]Bonzuvfotbd/100 WBC (Bld)88.5 %NormalFort Hamilton Hospital Comment on above:Performed By: #### CBCA, 12592-8, CMP, 55785-2, 45708-4 #### [facility] ([id number]) [address], [address] [place], [place] [address]Zoovjvvg mean volume (Bld) [Entitic vol]7.8 fLNormal7-12 [facility] HospitalComment on above:Performed By: #### CBCA, 74019-5, CMP, 39787-4, 92429-0 #### [facility] ([id number]) [address], [address] [place], [place] [address]Qacjutvfv (Bld) [#/Vol]379 10*3/jPNvwttq228-634EphVrxvwm [place] HospitalComment on above:Performed By: #### CBCA, 91120-3, CMP, 34903-8, 10022-4 #### [facility] ([id number]) [address], [address] [place], [place] [address]AKE COUNT5.02 X10E12/LNormal3.80-5.20[facility] Comment on above:Performed By: #### CBCA, 32838-7, CMP, 50795-5, 15590-4 #### [facility] ([id number]) [address], [address] [facility] [place] [address]LXJ (Bld) [#/Vol]9.0 10*3/uLNormal4.0-11.0ProMedica Miranda HospitalComment on above:Performed By: #### CBCA, 42794-0, CMP, 14605-9, 04374-1 #### [facility] ([id number]) [address], [address] [place] [address]CLOMWGBOESJGY METABOLIC PANELon 58-06-0695Gdgapeh [Mass/Vol]4.2 g/dLNormal3.2-5.3ProMedica Miranda HospitalComment on above:Performed By: #### CBCA, 33947-0, CMP, 72771-8, 89325-9 #### [facility] ([id number]) [address], [address] [place] [address]CIB [Catalytic activity/Vol]54 U/DSjzmki05-423BjqIxcomr Miranda HospitalComment on above:Performed By: #### CBCA, 46899-8, CMP, 49182-6, 01291-2 #### [facility] ([id number]) [address], [address] [place] [address]RIY [Catalytic activity/Vol]11 U/LNormal0-31ProMedica Miranda HospitalComment on above:Performed By: #### CBCA, 36956-3, CMP, 73189-0, 57746-9 #### [facility] ([id number]) [address], [address] [place], [place] [address]Wljmd gap [Moles/Vol]7 mmol/LNormal5-15[facility] Comment on above:Performed By: #### CBCA, 11840-7, CMP, 37723-8, 42708-4 #### [facility] ([id number]) [address], [address] [place], [place] [address]PUV [Catalytic activity/Vol]14 U/LNormal0-41ProMedica Miranda HospitalComment on above:Performed By: #### CBCA, 26919-6, CMP, 48737-5, 74791-7 #### [facility] ([id number]) [address], [address] [place], [place] [address]Dlmbznbfe [Mass/Vol]0.4 mg/dLNormal0.3-1.2POhioHealth Arthur G.[facility]. [facility] MD, Cancer Center HospitalComment on above:Performed By: #### CBCA, 85745-0, CMP, 87056-9, 26651-9 #### [facility] ([id number]) [address], [address] [place], [place] [address]Sfbaixi [Mass/Vol]9.9 mg/dLNormal8.5-10.5PUniversity Hospitals Ahuja Medical CenterComment on above:Performed By: #### CBCLinnette, 25673-0, CMP, 93686-7, 81861-7 #### [facility] ([id number]) [address], [address] [place], [place] [address]Pptgxzwq [Moles/Vol]95 mmol/MNko79-345FlmZacoyzFort Hamilton Hospital Comment on above:Performed By: #### CBCLinnette, 93212-8, CMP, 74820-3, 52747-8 #### [facility] ([id number]) [address], [address] [place], [place] [address]WQ6 [Moles/Vol]31 mmol/AChishi69-73LoaLvmvosUniversity Hospitals Ahuja Medical Center Comment on above:Performed By: #### CBCA, 76720-9, CMP, 93889-4, 13537-0 #### [facility] ([id number]) [address], [address] [place], [place] [address]Rdlhymtrae [Mass/Vol]0.59 mg/dLNormal0.40-1.00ProAvita Health System Ontario HospitalComment on above:Result Comment: METHOD TRACEABLE TO IDMS STANDARD Performed By: #### CBCA, 56107-3, CMP, 13419-9, 93905-0 #### [facility] ([id number]) [address], [address] [place], [place] [address]fUVO (CKD-EPI) NON-RACE DEPENDENT>90Normal>59ProAvita Health System Ontario HospitalComment on above:Result Comment: Reported eGFR is based on the CKD-EPI 2020 equation that does not use a race coefficient.Performed By: #### COLEMAN, 70028-9, CMP, 61801-5, 83454-0 #### [facility] ([id number]) [address], [address] [place], [place] [address]Aejxzje [Mass/Vol]101 mg/dOWgnp78-83PzeZcltqbFort Hamilton Hospital Comment on above:Performed By: #### COLEMAN, 99293-1, CMP, 98661-6, 04994-1 #### [facility] ([id number]) [address], [address] [place], [place] [address]Rjrxrzpok [Moles/Vol]4.2 mmol/LNormal3.5-5.0Fort Hamilton HospitalComment on above:Performed By: #### COLEMAN, 30218-5, CMP, 07420-1, 67135-8 #### [facility] ([id number]) [address], [address] [place], [place] [address]Iqhmbnj [Mass/Vol]7.1 g/dLNormal6.0-8.0[facility] Comment on above:Performed By: #### COLEMAN, 25630-3, CMP, 68111-6, 12700-5 #### [facility] ([id number]) [address] [address] [place], [place] [address]Flovrj [Moles/Vol]133 mmol/ADzt517-885PanJqdctoAvita Health System Ontario Hospital Comment on above:Performed By: #### COLEMAN, 15140-8, CMP, 57859-1, 22077-7 #### [facility] ([id number]) [address], [address] [place], [place] [address]Ggnb nitrogen [Mass/Vol]10 mg/dLNormal5-27ProAvita Health System Ontario HospitalComment on above:Performed By: #### COLEMAN, 10877-0, CMP, 40251-9, 44663-6 #### [facility] ([id number]) [address], [address] [place], [place] [address]Vncnkeg (P aisha) [Moles/Vol]on 54-81-2135KAZGADV W/REFLEX1.4 mmol/LNormal0.4-2.0ProAvita Health System Ontario HospitalComment on above:Result Comment: Result did not trigger repeat Lactate, re-order if needed.Performed By: #### 49795-8 #### [facility] ([id number]) [address], [address] [place], [place] [address]Dknltjucmkl peptide B [Mass/Vol]on 21-66-6639Lswxgnjevls peptide B (Bld) [Mass/Vol]165 pg/mLHigh<100.0ProAvita Health System Ontario HospitalComment on above: Performed By: #### COLEMAN, 99577-7, [facility], 93251-7, 97492-2 #### [facility] ([id number]) [address], [address] [place], [place] [address]Bpyncoyorlzye IA [Mass/Vol]on 99-65-3685WDQTWNULJSNIB<0.05Normal <0.05ProAvita Health System Ontario HospitalComment on above:Result Comment: NOTE <0.50 ng/mL - Low risk of severe sepsis and/or septic shock. <2.00 ng/mL - Recommend retesting within 6-24 hours. >2.00 ng/mL - High risk of sepsis and/or septic shock.Performed By: #### CBCA, 01330-2, CMP, 68283-3, 98165-4 #### [facility] ([id number]) [address], [address] [place], [place] [address]QMNY/FLU A+B/RSV by NAAT/Molecularon 08-36-1645HNEP/FLU A+B/RSV by NAAT/MolecularFLU A PCR Negative (qualifier value) FLU B [...] operators who are performing tests using either [employer] DX or DDN systems and is limited to laboratories that [...] specimen repeat. Fact Sheet for Healthcare Providers: https://www.fda.gov/media/215098/download Fact Sheet for Patients: https://www.fda.gov/media/208949/downloadNormalProMedica Parkview HealthComment on above:Performed By: #### COVFLR #### [facility] ([id number]) [address] [place], [place] [address]MJBMCFDD Ion 16-02-9663Addyzlxs I.cardiac [Mass/Vol]ng/mLNormal 0.00-0.04ProUniversity Hospitals Cleveland Medical Centerca Cadwell HospitalComment on above:Performed By: #### CBCA, 55465-9, CMP, 87453-6, 71041-8 #### [facility] ([id number]) [address], [address] [place], [place] [address]Agdtl collection deviceon 28-33-9950BP EXTRA URINESER EXTRA URINE ORDER IN PROCESSNoalProAvita Health System Ontario HospitalVENOUS BLOOD GASon 75-57-1404JPGNY'S TESTNormalProUniversity Hospitals Cleveland Medical Centerca Cadwell HospitalComment on above:Performed By: #### VBG #### [facility] ([id number]) [address] [place], [place] [address]Qqhl excess Calc (Bld) [Moles/Vol]7.0 mmol/LHigh0.0-2.0ProUniversity Hospitals Cleveland Medical Centerca Cadwell HospitalComment on above:Performed By: #### VBG #### [facility] ([id number]) [address] [place], [place] [address]Ibex azwgyscubsd32.6 [degF]Cddvsm33.0ProOhiohealth Grove City Methodist Hospital Hospital Comment on above:Performed By: #### VBG #### [facility] ([id number]) [address] [place], [place] [address]VTI8 (Bld) [Moles/Vol]37.7 mmol/LHigh20.0-24.0ProUniversity Hospitals Cleveland Medical Centerca Cadwell HospitalComment on above:Performed By: #### VBG #### [facility] ([id number]) [address] [place], [place] [address]CXHZ. O2 CONC.32 %NormalProMedica Cadwell HospitalComment on above:Performed By: #### VBG #### [facility] ([id number]) [address] [place], [place] [address]Jjyiyj saturation in Blood43.0 %Low>80.0ProMedica Miranda HospitalComment on above:Performed By: #### VBG #### [facility] ([id number]) [address] [facility], [place] [address]NLIPSL SOURCENCNormalProMedica Miranda HospitalComment on above: Performed By: #### VBG #### [facility] ([id number]) [address] [place], [place] [address]JLN5, MLMJBT22.8 GZBUDnxi87-95GasBclciz Miranda HospitalComment on above:Performed By: #### VBG #### [facility] ([id number]) [address] [place], [place] [address]PQ, VENOUS7.252Uey5.320-7.420ProMedica Miranda HospitalComment on above:Performed By: #### VBG #### [facility] ([id number]) [address] [place], [place] [address]RT8, BDGFTP87 BZUWJyp77-37GcePsuhcj Miranda HospitalComment on above:Performed By: #### VBG #### [facility] ([id number]) [address] [place], [place] [address]PHTENG SITEN/ANormalProMedica Miranda HospitalComment on above: Performed By: #### VBG #### [facility] ([id number]) [address] [facility], [place] [address]TSFKSW TYPEVENOUSNormalProMedica Miranda HospitalComment on above:Performed By: #### VBG #### [facility] ([id number]) [address] [facility], [place] [address]WD CHEST 2 VWSon 35-60-8937TN CHEST 2 VWSXR CHEST 2 VWS CLINICAL INFORMATION: Shortness of [...] by Rhiannon Crawford MD on 09/22/2023 4:32 PMNormalProMedica Parkview HealthBasi metabolic 2000 panelon 47-91-9689Fjgyu gap [Moles/Vol]12 mmol/L Normal9-18Dryden HospitalComment on above:Order Comment: Specimen Type: BLOOD SPECIMEN Ordering Facility: [facility] Address: [address] [place], [place] [address]Performed By: #### 74080-1, 40305-2 #### [facility] CLIA [id number] [address] [place] [address] [place] AMERICACalcium [Mass/Vol]9.8 mg/dLNormal8.5-10.2 [facility] HospitalComment on above:Order Comment: Specimen Type: BLOOD SPECIMEN Ordering Facility: [facility] Address: [address] [place], [place] [address]Performed By: #### 24822-3, 83313-7 #### [facility] CLIA [id number] [address] [place] [address] [place] AMERICAChloride [Moles/Vol]98 mmol/KEznzut91-288 [facility] HospitalComment on above:Order Comment: Specimen Type: BLOOD SPECIMEN Ordering Facility: [facility] Address: [address] [place], [place] [address]Performed By: #### 05953-3, 87796-6 #### [facility] CLIA [id number] [address] [place] [address] [place] AMERICACO2 [Moles/Vol]30 mmol/WJaiupm79-53Pvgu HospitalComment on above:Order Comment: Specimen Type: BLOOD SPECIMEN Ordering Facility: [facility] Address: [address]Performed By: #### 73078-3, 58354-5 #### [facility] CLIA [id number] [address] [place] [address] [place] AMERICACreatinine [Mass/Vol]0.49 mg/dLLow 0.58-0.96Av HospitalComment on above:Order Comment: Specimen Type: BLOOD SPECIMEN Ordering Facility: [facility] Address: [address] [place] [address]Performed By: #### 89072-7, 31192-5 #### [facility] CLIA [id number] [address] [place] [address] [place] AMERICAESTIMATED GLOMERULAR FILTRATION TKYB132 mL/min/1.73m???Normal>=60Av HospitalComment on above:Order Comment: Specimen Type: BLOOD SPECIMEN Ordering Facility: [facility] Address: [address] [place], [place] [address]Result Comment: Estimated Glomerular Filtration Rate (eGFR) is calculated using the 2020 CKD-EPI cre atinine equation. This equation utilizes serum creatinine, sex, and age as parameters. The creatinine assay has traceable calibration to isotope dilution- mass spectrometry. Refer to KDIGO guidelines for clinical interpretation. In patients with unstable renal function, e.g. those with acute kidney injury, the eGFR may not accurately reflect actual GFR.Performed By: #### 58892-4, 04800-5 #### [facility] CLIA [id number] [address] [place] [address] [place] AMERICAGlucose [Mass/Vol]129 mg/eTHpka13-87Ozoi HospitalComment on above:Order Comment: Specimen Type: BLOOD SPECIMEN Ordering Facility: [facility] Address: [address] [place], [place] [address]Result Comment: The [place] Diabetes Association (ADA) provides guidance for cutoff [...] Standards of Medical Care in Diabetes 2016, [place] Diabetes Association. Diabetes Care. 2016.39(Suppl 1).Performed By: #### 11084-8, 12882-2 #### [facility] CLIA [id number] [address] [place] [address] [place] AMERICAPotassium [Moles/Vol]4.5 mmol/LNormal 3.7-5.1Arobert wood johnson university hospital somerset HospitalComment on above:Order Comment: Specimen Type: BLOOD SPECIMEN Ordering Facility: [facility] Address: [address] [place], [place] [address]Performed By: #### 69109-6, 48476-8 #### [facility] CLIA [id number] [address] [Moles/Vol]140 mmol/JZxmuva654-196 [facility] InstituteComment on above:Order Comment: Specimen Type: BLOOD SPECIMEN Ordering Facility: [facility] Address: [address] [place], [place] [address]Performed By: #### 80331-3, 62669-9 #### [facility] IA [id number] [address] [place] [address] [place] AMERICAUrea nitrogen [Mass/Vol]6 mg/dLLow7-21 [facility] HospitalComment on above:Order Comment: Specimen Type: BLOOD SPECIMEN Ordering Facility: [facility] Address: [address] [place], [place] [address]Performed By: #### 07698-1, 98603-2 #### [facility] CLIA [id number] [address] [place] [address] [facility] HOSPITALECHOon 10-96-6946Hmnjunailfvgkric Echocardiography Report: Transthoracic Echo [facility] Date of service: 03/24/2023 2:27:06 PM Ordering [...] * * * Final * * * Match Medical Image : [id number] Children's MinnesotaLVEF ECHOon 02-78-7081GT Ejection Vqmksnrf78 % [facility] District HospitalNT-proBNP SerPl-nc 65-51-4675Kjsybrqabza peptide.B prohormone N-Terminal [Mass/Vol]522 pg/mLHigh<125[facility] InstituteComment on above: Order Comment: Specimen Type: BLOOD SPECIMEN Ordering Facility: [facility] Address: [address] [place] [address]Gosmtlbvi By: #### 73650-6, 03501-3 #### [facility] CLIA [id number] [address] [place] [address] [place] AMERICAPVR LEG ZAHIRA VAS LABon 11-69-4410NLR LEG ZAHIRA VAS LABNon-Invasive Vascular Laboratory [facility] Lower Extremity Arterial Physiology Study Bilateral/Complete Date of service/time: 03/24/2023 11:16:42 AM Name: MRS. MARCELA BREWER Date of : 1950 Age: 73 years Gender: F Clinical Indication Pain in leg. TECHNIQUE -------- An arterial physiological examination was performed, including measurement of blood pressures usingcontinuous wave Doppler and recording of plethysmographic with [...] ALEX RIGGINS Interpreting physician: Moise Arias MD, CRISTÓBAL Final CC Match Medical Image : [id number] See Link below for [facility] panel Auto (Bld) on 48-48-8776Vhwfvechxok distribution width (RBC) [Ratio]13.7 %11.5 - 15.0 % [facility] HospitalHematocrit (Bld) [Volume fraction]47.8 %High36.0 - 46.0 % [facility] HospitalHemoglobin (Bld) [Mass/Vol]15.2 g/dL11.5 - 15.5 g/dLOhioHealth O'Bleness HospitalH (RBC) [Entitic mass]30.5 pg26.0 - 34.0 pgCCleveland Clinic Hillcrest HospitalHC (RBC) [Mass/Vol]31.8 g/dL30.5 - 36.0 g/dLOhioHealth O'Bleness HospitalV (RBC) [Entitic vol]95.8 fL80.0 - 100.0 fLCleveland ClinicNucleated RBC (Bld) [#/Vol]<0.01 k/uLHighland District HospitalPlatelet mean volume (Bld) [Entitic vol]9.2 fL9.0 - 12.7 fLCst. rita's hospital ClinicPlatelets (Bld) [#/Vol]448 10*3/xTLnpx342 - 400 k/uLHighland District HospitalRBC (Bld) [#/Vol]4.99 10*6/uL3.90 - 5.20 m/uLHighland District HospitalWBC (Bld) [#/Vol]12.57 10*3/uLHigh3.70 - 11.00 k/[facility]view HospitalOSMOLALITY URINEon 12-30-2022 Osmolality (U) [Osmolality]286 mosm/kg50 - 1,200 mOsm/kgHighland District HospitalPROF CHEM 8 (BAS METB)on 13-86-1822Rqcoe gap [Moles/Vol]9.2 mmol/LNormalThe Madison HealthComment on above:Performed By: #### BMP #### [facility] [address] [place] [address] [address] Amrik ZazuetaCalcium [Mass/Vol]9.2 mg/dLNormal8.5-10.1[facility] Comment on above:Performed By: #### BMP #### [facility] [address] [place], [place] [address] Dr. Amrik ZazuetaChloride [Moles/Vol]96 mmol/LCritically gos15-975Sdw Madison HealthComment on above:Performed By: #### BMP #### [facility] [address] [address] [address] Amrik ZazuetaCO2 [Moles/Vol]33.2 mmol/LCritically high21.0-32.0The Madison HealthComment on above:Performed By: #### BMP #### [facility] [address] [address] [address] Amrki ZazuetaCreatinine [Mass/Vol]0.82 mg/dLNormal0.55-1.02The Madison HealthComment on above:Performed By: #### BMP #### [facility] [address] [place] [address] [address] Amrik BarrGFR-AF BELARUSIAN>60Normal>=60The Madison HealthComment on above:Performed By: #### BMP #### [facility] [address] [place] [address] [address] Amrik BarrGFR-NON AF BELARUSIAN>60Normal>=60The Madison HealthComment on above:Performed By: #### BMP #### [facility] [address] [address] [address] Amrik ZazuetaGlucose [Mass/Vol]121 mg/dLCritically uoau93-587Ddr Madison HealthComment on above:Performed By: #### BMP #### [facility] [address] [address] [address] Amrik ZazuetaPotassium [Moles/Vol]4.4 mmol/LNormal3.5-5.1[facility] Comment on above:Performed By: #### BMP #### [facility] [address] [address] [address] Amrik ZazuetaSodium [Moles/Vol]134 mmol/LCritically vpp539-166Bcc [facility] Mercy Hospitalment on above:Performed By: #### BMP #### [facility] [address] [address] [address] Amrik ZazuetaUrea nitrogen [Mass/Vol]7.0 mg/dLNormal7.0-18.0The Madison HealthComment on above:Performed By: #### BMP #### [facility] [address] [place], [place] [address] Dr. Amrik ZazuetaUrea nitrogen/Creatinine [Mass ratio]8.5 mg/mgCleveland ClinicComment on above:Performed By: #### BMP #### [facility] [address] [place], [place] [address] Dr. Amrik ZazuetaXR SHOULDER RT 2V or >on 53-51-6961PS SHOULDER RT 2V or >EXAM: XR HUMERUS RT MIN 2 V, XR [...] Electronically authenticated by: SAMANTHA DINERO Date: 2022-09-01 13:01[facility] SPECT/CT CARDIAC AMYLOIDon 08-86-6237Amfqpehsd ClinicNo Panel Informationon 04-65-0446Bvcrfcsro ClinicMAM ALMA DELIA DIGITAL SCREEN SELF REFERRAL W OR WO CAD BILATERALOrdered By: Pili Stearns on 60-66-8515Ew mammographic evidence to suggest malignancy. In this patient with global asymmetry of the breasttissues and numerous calcifications, who also has a high Tyrer Cuzick score, bilateral breast MRI should be considered. BIRADS: BIRADS - CATEGORY 2 Benign Findings. Normal interval follow-up is recommended in 12 months. Bilateral breast MRI would be appropriate. OVERALL ASSESSMENT - BENIGN A letterof notification will be sent to the patient regarding the results. The [employer] recommends annual mammograms for women 40 years and older.Network18 Phone: eXAMINATION: SCREENING DIGITAL BILATERAL MAMMOGRAM WITH TOMOSYNTHESIS 02/14/2021 [...] projection. Computer aided detection was utilized in theinterpretation of this exam. Positioning apparently was somewhat technically challenging. COMPARISON: Bilateral mammographic imaging: April 10, 2019, February 06, 2018, September 27, 2016, July 14, 2015,July 08, 2014, June 19, 2013. HISTORY: Screening. Screening. The patient has had previous bilateral breast biopsies which apparently were benign. Based on the Tyrer-Cuzick (LAURE) model, this patient's lifetime risk for developing breast cancer is 26.3%. The [place] [employer] considers women with a 20% or greater lifetime risk for developing breast cancer as high risk . Women at riskfor breast cancer may benefit from additional screening, which may include an annual screening mammo gram alternating every six (6) months with a breast MRI, as appropriate. Recommend that this patient consult with her preferred provider about: A genetic counseling consultation to discuss formal risk assessment, and a medical oncology consultation to discuss risk reduction strategies (if not already performed). Assistance, if requested, is available through the [employer]ch high risk breast program at [phone], or by placing an [facility] ambulatory referral to the high risk breast clinic . FINDINGS: The breasts are heterogeneously dense, which may obscure small masses. Within that limitation, thereis no dominant mass or area of architectural distortion. Again apparent are numerous calcifications throughout each breast, some in the left upper outer quadrant having been previously biopsied. These appear essentially unchanged. There is global asymmetry.[employer] Work Phone: ekassi, Allyson Incoming Radiant Results From [employer] - 02/16/2021 10:11 AM EDT EXAMINATION: SCREENING [...] for developing breast cancer is 26.3%. The [place] [employer] considers women with a 20% [...] Assistance, if requested, is available through the [employer] high risk breast program at [phone], or by placing an [facility] ambulatory referral to the high risk breast [...] to the patient regarding the results. The [employer] recommends annual mammograms for women 40 years and older. Network18 Phone: [facility] Work Phone: progress Noteon 23-36-5511SCJ IP Note OR Service Restorer Emergency NormalMercy Centinela [facility] Medical Center, Memorial CampusProgress Noteon 00-49-5349QNX IP Note OR TranscriptionNormalMercy Centinela [facility] Center, Memorial CampusProgress Noteon 96-00-4976VYH IP Note OR TranscriptionNormalMercy Centinela [facility], Memorial CampusProgress Noteon 56-50-6306BAF IP Note OR TranscriptionNormalCrystal Clinic Orthopedic Centercy Centinela [facility] Vital Signs Date TimeVital SignValuePerforming DecqtjsmsCryefcnl19-31-4999 13:27-0400Body ejnoxw702.9 cmSteven Rusher DPM Work Phone: [facility] CenterUyrxhbqrqb26-19-2337 13:27-0400Body mass index (BMI) [Ratio]20.03 kg/o8Noynxq Rusher DPM Work Phone: [facility] CenterByzzsvqgpk20-90-6584 13:27-0400Body ctllof68.08 kgSteven Rusher DPM Work Phone: [facility] CenterLmliibikte03-54-6838 15:24-0400Body bswayq917.9 Zuri Mac DO Work Phone: [facility]09-25-2025 15:24-0400Body mass index (BMI) [Ratio]19.59 kg/p1JgnhovLaura Mac DO Work Phone: [facility] Viratech Xuozgu71-46-7836 15:24-0400Body oxlquk18.04 kgLaura Mac DO Work Phone: [facility]09-25-2025 15:24-0400Diastolic blood qljepmuz50 mm[Hg]Laura Mac DO Work Phone: [facility]09-25-2025 15:24-0400Heart rate 89 /minSsharodna Mac DO Work Phone: [facility]09-25-2025 15:24-4111ZqZ9% (BldA) [Mass fraction]91 %Laura Mac DO Work Phone: [facility] HospitalComment on above:Arrived on 4Lnc of S764-65-7527 15:24-0400Systolic blood gklidhxq162 mm[Hg]Laura Mac DO Work Phone: [facility]07-22-2025 13:22-0400Body wutgmc416.9 cmLuiz Tadeo MD Work Phone: [facility] CenterWybusthdvp79-48-4840 13:22-0400Body mass index (BMI) [Ratio]20.03 kg/m2Luiz Tadeo MD Work Phone: [facility] CenterXqjkrgvhxd22-28-7542 13:22-040Body temperature 96.6 [degF]Luiz Tadeo MD Work Phone: [facility] CenterYwzpkfkipg41-64-5502 13:22-0400Body aqoxem88.08 kgLuiz Tadeo MD Work Phone: [facility] CenterJyqfehydpm43-64-8624 13:22-0400Diastolic blood gsumvxxc09 mm[Hg]Luiz Tadeo MD Work Phone: [facility] CenterChrhiamvyy95-64-1085 13:22-0400Heart rate81 /min Luiz Tadeo MD Work Phone: [facility] CenterUcwxfdopdn35-47-5466 13:22-0400Respiratory rate20 /minLuiz Tadeo MD Work Phone: [facility] CenterMapirogcuu97-68-0549 13:22-4879EdE0% (BldA) [Mass fraction]87 %Liuz Tadeo MD Work Phone: [facility] CenterMphkkrndyn08-02-3538 13:22-0400Systolic blood mm[Hg]Luiz Tadeo MD Work Phone: [facility] CenterJfaujogoxa72-54-4933 13:07-0400Body aebenw091.9 cmRoly Cramer MD Work Phone: noSaint [facility] HospitalFbdtlpscue52-46-1330 13:07-0400Body mass index (BMI) [Ratio]20.41 kg/g3Zvxwlj Timmis MD Work Phone: [facility] CenterPkgssphtuw14-44-2804 13:07-0400Body .99 kgRoly Cramer MD Work Phone: [facility] CenterNjbtqtdvaq58-43-5470 13:07-0400Diastolic blood ecuyscdb84 mm[Hg]Roly Cramer MD Work Phone: [facility] CenterLfrfxpqorc76-43-7933 13:07-0400Heart rate78 /min Roly Cramer MD Work Phone: [facility] CenterHbtxxecxzb24-49-5521 13:07-0400Systolic blood mm[Hg]Roly Cramer MD Work Phone: [facility] CenterTxyqpcqzir76-54-2313 13:37-0400Body qzzsyd643.9 cmSteven Rusher DPM Work Phone: [phone]06-11-2025 13:37-0400Body mass index (BMI) [Ratio]20.41 kg/a1Fiqoiq Rusher DPM Work Phone: [phone]06-11-2025 13:37-0400Body vnumsk86.99 kgSteven Rusher DPM Work Phone: [phone] [place], [place] [address]Cjlchzffls10-67-8139 14:35-0400Body evaaec116.9 Zuri Mac DO Work Phone: [facility]05-29-2025 14:35-0400Body mass index (BMI) [Ratio]20.16 kg/s6Vxvejh Bubba DO Work Phone: [facility]05-29-2025 14:35-0400Body fdatnw78.4 kgLaura Bubba DO Work Phone: [facility]05-29-2025 14:35-0400Diastolic blood yuuwandd41 mm[Hg]Laura Mac DO Work Phone: [facility]05-29-2025 14:35-0400Heart rate 84 /minSsharonda Bubba DO Work Phone: [facility]05-29-2025 14:35-8510NwI0% (BldA) [Mass fraction]95 %Laura Mac DO Work Phone: [facility] HospitalComment on above:POC 4 MQEEHOVBIJ34-96-6630 14:35-0400Systolic blood eelzysah548 mm[Hg]Laura Mac DO Work Phone: [facility]04-14-2025 10:46-0400Blood Pressure LocationMohamed Fox [facility]04-14-2025 10:46-0400 Diastolic blood rittojdm80 mm[Hg]Levar Braxton [facility]04-14-2025 10:46-0400Heart rate76 /minMohamed Fox [facility]04-14-2025 10:46-0400 Respiratory rate16 /minMohamed Fox [facility]04-14-2025 10:46-5231UaG4% (BldA) [Mass fraction]92 %Levar Braxton [facility]04-14-2025 10:46-0400 Systolic blood qybgraoe430 mm[Hg]Levar Braxton [facility]04-08-2025 15:25-0400Body rubppf572.2 Katerine Riggins MD Work Phone: [facility]04-08-2025 15:25-0400Body mass index (BMI) [Ratio]19.89 kg/c8ToovgiAlex Riggins MD Work Phone: [facility]04-08-2025 15:25-0400Body pduxid15.53 kgAlex Riggins MD Work Phone: [facility]04-08-2025 15:25-0400Diastolic blood soeautyi374 mm[Hg]Alex Riggins MD Work Phone: [facility]04-08-2025 15:25-0400Heart rate91 /min Alex Riggins MD Work Phone: [facility]04-08-2025 15:25-0400Respiratory rate 15 /minAlex Riggins MD Work Phone: [facility]04-08-2025 15:25-1383NdJ3% (BldA) [Mass fraction]98 %Alex Riggins MD Work Phone: [facility]04-08-2025 15:25-0400Systolic blood modmbfqt544 mm[Hg]Alex Riggins MD Work Phone: [facility]03-10-2025 12:02-0400[facility]03-10-2025 12:02-0400 Diastolic blood aphfjvhv36 mm[Hg]Levar Braxton [facility]03-10-2025 12:02-0400Heart rate84 /minMohamed Fox [facility]03-10-2025 12:02-0400 Respiratory rate20 /minMohamed Fox [facility]03-10-2025 12:02-2145MfB4% (BldA) [Mass fraction]100 %Levar Fox [facility]03-10-2025 12:02-0400 Systolic blood tkwsxlnu893 mm[Hg]Levar Fox [facility]02-24-2025 11:35-0500Blood Pressure LocationMohamed Fox [facility]02-24-2025 11:35-0500 Respiratory rate18 /minMohamed Fox [facility]02-24-2025 11:35-7112PdD0% (BldA) [Mass fraction]100 %Levar Braxton [facility]02-11-2025 14:03-0500Body sqlalr134.9 cmSteven Rusher DPM Work Phone: [facility] CenterDniwfwwdag51-57-6134 14:03-0500Body mass index (BMI) [Ratio]20.52 kg/e3Ojkher Rusher DPM Work Phone: [facility] CenterOotqvwzity58-08-9537 14:03-0500Body nollmj94.26 kgSteven Rusher DPM Work Phone: [facility] CenterFxfvorplgs54-67-0539 13:16-0500Body tuzojq147.9 cmLuiz Tadeo MD Work Phone: [facility] CenterLsvyunuyvj97-34-4802 13:16-0500Body mass index (BMI) [Ratio]20.52 kg/m2Luiz Tadeo MD Work Phone: [facility] CenterXquhsvvsmb16-35-5935 13:16-0500Body temperature 96.6 [degF]Luiz Tadeo MD Work Phone: [facility] CenterYotpbsbbwx70-55-5967 13:16-0500Body ypeqxq39.26 kgLuiz Tadeo MD Work Phone: [facility] CenterZhtcklfceo99-96-1720 13:16-0500Diastolic blood bbzibdgi83 mm[Hg]Luiz Tadeo MD Work Phone: [facility] CenterXwnxkjuizd07-23-8810 13:16-0500Respiratory rate18 /minLuiz Tadeo MD Work Phone: [facility] CenterHhfcjjxalg23-11-6210 13:16-0500Systolic blood kgldvetl577 mm[Hg]Luiz Tadeo MD Work Phone: [facility] CenterNmfllyxrsq61-24-9840 11:16-0500Blood Pressure LocationMohamhasmukh Braxton [facility]01-13-2025 11:16-0500 Diastolic blood rbiwooii76 mm[Hg]Levar Braxton [facility]01-13-2025 11:16-0500Heart rate85 /minMohamed Fox [facility]01-13-2025 11:16-0500 Respiratory rate16 /minMohamed Fox [address] [place], [place] [address]01-13-2025 11:16-6701JsH2% (BldA) [Mass fraction]98 %Levar Braxton [facility]01-13-2025 11:16-0500 Systolic blood mm[Hg]Levar Braxton [address]01-09-2025 11:39-0500Body .9 cmSsharonda Mac DO Work Phone: [facility]01-09-2025 11:39-0500Body mass index (BMI) [Ratio]19.97 kg/e2VqexleLaura Mac DO Work Phone: [facility]01-09-2025 11:39-0500Body .95 kgLaura Mac DO Work Phone: [facility]01-09-2025 11:39-0500Diastolic blood mm[Hg]Laura Mac DO Work Phone: [facility]01-09-2025 11:39-0500Heart rate 88 /minSsharonda Mac DO Work Phone: [facility]01-09-2025 11:39-9956IpF7% (BldA) [Mass fraction]100 %Laura Mac DO Work Phone: [facility] HospitalComment on above:Arrived on 4Lnc of W414-79-2645 11:39-0500Systolic blood sgkcodja699 mm[Hg]Laura Mac DO Work Phone: [facility]12-18-2024 09:09-0500Body ugwcgu690.9 cmLuiz Tadeo MD Work Phone: [facility] CenterXzbszjspsc71-68-8218 09:09-0500Body mass index (BMI) [Ratio]20.03 kg/m2Luiz Tadeo MD Work Phone: [facility] CenterNfxqqzumzk33-82-0899 09:09-0500Body temperature 96.4 [degF]Luiz Tadeo MD Work Phone: [facility] CenterSknxemimvp58-85-2416 09:09-0500Body tmhnuz59.08 kgLuiz Tadeo MD Work Phone: [facility] CenterJxiieibqzf17-57-7372 09:09-0500Diastolic blood seugaktz03 mm[Hg]Luiz Tadeo MD Work Phone: [facility] CenterHmuhbbspli52-33-0150 09:09-0500Heart rate65 /min Luiz Tadeo MD Work Phone: [facility] CenterVxwmzoghqk79-48-3696 09:09-0500Respiratory rate24 /minLuiz Tadeo MD Work Phone: [facility] CenterYicztcdwir56-50-0038 09:09-5759MdH9% (BldA) [Mass fraction]97 %Luiz Tadeo MD Work Phone: [facility] CenterYixppizjhr58-63-5031 09:09-0500Systolic blood mm[Hg]Luiz Tadeo MD Work Phone: [place] [address]Oyxehzyats10-38-5877 11:51-0500Diastolic blood llimgddc27 mm[Hg]Levar Braxton [facility]12-09-2024 11:51-0500Heart rate78 /minMohamhasmukh Braxton [facility]12-09-2024 11:51-0500 Respiratory rate16 /minMohamed Fox [facility]12-09-2024 11:51-0326KlX9% (BldA) [Mass fraction]92 %Levar Braxton [facility]12-09-2024 11:51-0500 Systolic blood qyptkeai219 mm[Hg]Levar Braxton [facility]10-31-2024 13:12-0400Body exjnhj050.9 cmLuiz Tadeo MD Work Phone: [facility] CenterGslxswtgjw47-80-3409 13:12-0400Body mass index (BMI) [Ratio]20.41 kg/m2Luiz Tadeo MD Work Phone: [facility] CenterVfntnyqhtd41-37-4536 13:12-0400Body temperature 96.01 [degF]Luiz Tadeo MD Work Phone: [facility] CenterLuqvelaulo40-40-7667 13:12-0400Body .99 kgLuiz Tadeo MD Work Phone: [facility] CenterLfztihfwsy85-05-2044 13:12-0400Diastolic blood fbrhxacf28 mm[Hg]Luiz Tadeo MD Work Phone: [facility] CenterMkwtnlraai71-82-1308 13:12-0400Heart rate89 /min Luiz Tadeo MD Work Phone: [facility] CenterNiawvyaeih09-31-3490 13:12-0400Respiratory rate20 /minLuiz Tadeo MD Work Phone: [facility] CenterDbkvosrvqy50-93-2483 13:12-6695YgX7% (BldA) [Mass fraction]97 %Luiz Tadeo MD Work Phone: [facility] CenterLcdktdfufm18-34-3203 13:12-0400Systolic blood eprmjmjf809 mm[Hg]Liuz Tadeo MD Work Phone: [facility] CenterQwweevzasd24-25-0170 10:47-0400Body sygihn014.2 Anju Lott MD Work Phone: [facility]10-15-2024 10:47-0400Body mass index (BMI) [Ratio]19.52 kg/m2Hugo Lott MD Work Phone: [facility]10-15-2024 10:47-0400Body yupgrv40.63 kgHugo Lott MD Work Phone: [facility]09-25-2024 13:33-0400Body yfhpjc816.9 cmLuiz Tadeo MD Work Phone: [facility] CenterFuclbncrvm30-40-1852 13:33-0400Body mass index (BMI) [Ratio]19.65 kg/m2Luiz Tadeo MD Work Phone: [facility] CenterAlinvtkvfp28-18-3371 13:33-0400Body temperature 97.5 [degF]Luiz Tadeo MD Work Phone: [facility] CenterGkyzkqdceb63-30-2421 13:33-0400Body .17 kgLuiz Tadeo MD Work Phone: [facility] CenterSdhsbnmotd87-62-0598 13:33-0400Diastolic blood mm[Hg]Luiz Tadeo MD Work Phone: [facility] CenterDebpilwutc21-77-1234 13:33-0400Heart tcjz376 /min Luiz Tadeo MD Work Phone: [facility] CenterEkjeelgiam54-83-5746 13:33-0400Respiratory rate20 /minLuiz Tadeo MD Work Phone: [place] [address]Fcbsyqoygl17-24-3702 13:33-8672SpX6% (BldA) [Mass fraction]88 %Luiz Tadeo MD Work Phone: [place] [address]Klwragjlpw22-78-6373 13:33-0400Systolic blood hfshovtj676 mm[Hg]Luiz Tadeo MD Work Phone: [place] [address]Xephtqgxgj70-23-6683 10:42-0400Body kxzuwx517.9 cmShanna Bubba DO Work Phone: [facility]09-12-2024 10:42-0400Body mass index (BMI) [Ratio]20.12 kg/r3RzxofkLaura Mac DO Work Phone: [facility]09-12-2024 10:42-0400Body hamlnb03.31 kgLaura Mac DO Work Phone: [facility]09-12-2024 10:42-0400Diastolic blood hjpwyoqn49 mm[Hg]Laura Mac DO Work Phone: [facility]09-12-2024 10:42-0400Heart rate 92 /minSsharonda Mac DO Work Phone: [facility]09-12-2024 10:42-0603KuJ0% (BldA) [Mass fraction]90 %Laura Mac DO Work Phone: [facility] HospitalComment on above:Arrived on [address] of O424-32-7900 10:42-0400Systolic blood csiplezv796 mm[Hg]Laura Mac DO Work Phone: [facility]08-28-2024 13:23-0400Body qbbscy259.9 cmLuiz Tadeo MD Work Phone: [facility] CenterCuvqrsgled89-41-5406 13:23-0400Body mass index (BMI) [Ratio]19.84 kg/m2Luiz Tadeo MD Work Phone: [facility] CenterUvinhphlte40-01-4287 13:23-0400Body temperature 97.5 [degF]Luiz Tadeo MD Work Phone: [facility] CenterTlqrrdppfh94-64-5813 13:23-0400Body eatdzb01.63 kgLuiz Tadeo MD Work Phone: [facility] CenterUddaerketb49-09-6313 13:23-0400Diastolic blood cafcxdys64 mm[Hg]Luiz Tadeo MD Work Phone: [facility] CenterBuzdicwngk70-43-9077 13:23-0400Heart rate95 /min Luiz Tdaeo MD Work Phone: [facility] CenterBxudlsoynk40-75-7447 13:23-0400Respiratory rate22 /minLuiz Tadeo MD Work Phone: [facility] CenterLsgbabnbbl95-61-2812 13:23-1524IgW7% (BldA) [Mass fraction]89 %Luiz Tadeo MD Work Phone: [facility] CenterGhnkceyjaa09-23-6905 13:23-0400Systolic blood odiucmqg896 mm[Hg]Luiz Tadeo MD Work Phone: [facility] CenterTtlqtgjulp08-27-6724 11:51-0400Body slocjh029.9 cmRebecca Reay TECHNICAL ACCOUNT MANAGER.DIRECTOR BIOLOGY Work Phone: [facility]08-27-2024 11:51-0400Body mass index (BMI) [Ratio]18.57 kg/s2Frrroax Reay TECHNICAL ACCOUNT MANAGER.DIRECTOR BIOLOGY Work Phone: [facility]08-27-2024 11:51-0400Body kqcyxg23.59 kgRebecca Reay TECHNICAL ACCOUNT MANAGER.DIRECTOR BIOLOGY Work Phone: [facility]08-27-2024 11:51-0400Diastolic blood mm[Hg]Mima Reay TECHNICAL ACCOUNT MANAGER.DIRECTOR BIOLOGY Work Phone: [facility]08-27-2024 11:51-0400Heart mxeb607 /minRebecca Reay TECHNICAL ACCOUNT MANAGER.DIRECTOR BIOLOGY Work Phone: [facility]08-27-2024 11:51-5145QxO4% (BldA) [Mass fraction]90 %Mima Reay TECHNICAL ACCOUNT MANAGER.DIRECTOR BIOLOGY Work Phone: [facility] HospitalComment on above:2 mkgpya92-31-3029 11:51-0400Systolic blood mm[Hg]Mima Reay TECHNICAL ACCOUNT MANAGER.DIRECTOR BIOLOGY Work Phone: [facility]06-06-2024 11:06-0400Body ncdajh835.9 Zuri Mac DO Work Phone: [facility]06-06-2024 11:06-0400Body mass index (BMI) [Ratio]20.26 kg/s0AtntokLaura Mac DO Work Phone: [facility]06-06-2024 11:06-0400Body epckhathaca80.5 [degF]Laura Mac DO Work Phone: [facility]06-06-2024 11:06-0400Body kcvnti96.63 kgLaura Mac DO Work Phone: [facility]06-06-2024 11:06-0400Diastolic blood cxmzdpse15 mm[Hg]Laura Mac DO Work Phone: [facility]06-06-2024 11:06-0400Heart rate 94 /minSsharonda Mac DO Work Phone: [facility]06-06-2024 11:06-6637TeN6% (BldA) [Mass fraction]96 %Laura Mac DO Work Phone: [facility] HospitalComment on above:Arrived on 3Lnc of I416-51-7589 11:06-0400Systolic blood geutpgdi433 mm[Hg]Laura Mac DO Work Phone: [facility]05-09-2024 11:18-0400Body gvvfuj000.9 cmYuki Car MD Work Phone: [facility]05-09-2024 11:18-0400Body mass index (BMI) [Ratio]19.33 kg/n5AupvqieYuki Car MD Work Phone: [facility]05-09-2024 11:18-0400Body juzxnh41.4 kgYuki Car MD Work Phone: [facility]05-09-2024 11:18-0400Diastolic blood qlhfalfe96 mm[Hg]Yuki Car MD Work Phone: [facility]05-09-2024 11:18-0400Heart rate97 /min Yuki Car MD Work Phone: [facility]05-09-2024 11:18-6479AfS6% (BldA) [Mass fraction]100 %Yuki Car MD Work Phone: [facility]05-09-2024 11:18-0400Systolic blood mm[Hg]Yuki Car MD Work Phone: [facility]03-07-2024 10:53-0500Body ffizax325.9 cmSsharonda Mac DO Work Phone: [facility]03-07-2024 10:53-0500Body mass index (BMI) [Ratio]19.88 kg/g4VniaxfLaura Mac DO Work Phone: [facility]03-07-2024 10:53-0500Body mcupas30.72 kgLaura Mac DO Work Phone: [facility]03-07-2024 10:53-0500Diastolic blood cjohgwxg10 mm[Hg]Laura Mac DO Work Phone: [facility]03-07-2024 10:53-0500Heart rate 97 /minSsharonda Mac DO Work Phone: [facility]03-07-2024 10:53-6066UfH8% (BldA) [Mass fraction]95 %Laura Mac DO Work Phone: [facility] HospitalComment on above:Arrived on 2.5Lnc of N218-83-7396 10:53-0500Systolic blood fugcpqyd747 mm[Hg]Laura Mac DO Work Phone: [facility]03-04-2024 13:12-0500Body valluy17.99 kgYuki Car MD Work Phone: [facility]03-04-2024 13:12-0500Diastolic blood oycawsnr07 mm[Hg]Yuki Car MD Work Phone: [facility]03-04-2024 13:12-0500Heart wmww828 /minDebanastacia Car MD Work Phone: [phone]03-04-2024 13:12-0586JzV4% (BldA) [Mass fraction]95 %Yuki Car MD Work Phone: [phone]03-04-2024 13:12-0500Systolic blood qxjrlwag291 mm[Hg]Yuki Car MD Work Phone: [phone]02-27-2024 15:25-0500Body xibrec507.9 Katerine Riggins MD Work Phone: [phone]02-27-2024 15:25-0500Body ofsezt78.99 kgAlex Riggins MD Work Phone: [phone]02-27-2024 15:25-0500Diastolic blood kidffnda98 mm[Hg]Alex Riggins MD Work Phone: [phone]02-27-2024 15:25-0500Heart nmjj304 /minAlex Riggins MD Work Phone: [phone]02-27-2024 15:25-0909IrJ0% (BldA) [Mass fraction]93 %Alex Riggins MD Work Phone: [phone]02-27-2024 15:25-0500Systolic blood xvdswgsi309 mm[Hg]Alex Riggins MD Work Phone: [phone]01-19-2024 08:42-0003CnH6% (BldA) [Mass fraction]96 %LUIZ [facility] ColumbusComment on above: Performed By: #### CBCA, 87089-3, CMP, 40508-5, 38410-9 #### [facility] ([id number]) [address], [address] [place], [place] [id number] 18:23-6345SqY8% (BldA) [Mass fraction]97 %LUIZ [facility] - ColumbusComment on above:Performed By: #### VBG #### [facility] ([id number]) [address] [place], [place] [id number] 14:32-0400Body ewjcjm552.5 cmTracey Matejka PA-C Work Phone: [facility]04-27-2023 14:32-0400Body .17 kgTracey Matejka PA-C Work Phone: [place] [address]-27-2023 14:32-0400Diastolic blood qgxotfgb36 mm[Hg]Marti Matejka PA-C Work Phone: [facility]04-27-2023 14:32-0400Heart qtmu665 /minTracey Matejka PA-C Work Phone: [facility]04-27-2023 14:32-3145GzI2% (BldA) [Mass fraction]94 %Marti Matejka PA-C Work Phone: [place] [address]-27-2023 14:32-0400Systolic blood vmcjaitm513 mm[Hg]Marti Matejka PA-C Work Phone: [facility]02-14-2023 14:13-0500Body zuyglf293.2 Katerine Riggins MD Work Phone: [facility]02-14-2023 14:13-0500Body syxffw37.03 kgAlex Riggins MD Work Phone: [facility]02-14-2023 14:13-0500Diastolic blood cftbdnso02 mm[Hg]Alex Riggins MD Work Phone: [facility]02-14-2023 14:13-0500Heart rate98 /min Alex Riggins MD Work Phone: [place] [address]-14-2023 14:13-0641HbJ5% (BldA) [Mass fraction]98 %Alex Riggins MD Work Phone: [facility]02-14-2023 14:13-0500Systolic blood yqfomkos679 mm[Hg]Alex Riggins MD Work Phone: [facility]08-30-2022 12:02-0400Body qyyqep452.9 Katerine Riggins MD Work Phone: [facility]08-30-2022 12:02-0400Body kzryjl36.17 kgAlex Riggins MD Work Phone: [facility]08-30-2022 12:02-0400Diastolic blood mm[Hg]Alex Riggins MD Work Phone: [facility]08-30-2022 12:02-0400Heart rate90 /min Alex Riggins MD Work Phone: [phone]08-30-2022 12:02-5805ZeR8% (BldA) [Mass fraction]100 %Alex Riggins MD Work Phone: [facility]08-30-2022 12:02-0400Systolic blood jikuvsmx612 mm[Hg]Alex Riggins MD Work Phone: [facility]05-24-2022 16:34-0400Body xyydzc307.9 Katerine Riggins MD Work Phone: [facility]05-24-2022 16:34-0400Body soyfdz57.13 kgAlex Riggins MD Work Phone: [facility]05-24-2022 16:34-0400Diastolic blood xugswkwa12 mm[Hg]Alex Riggins MD Work Phone: [facility]05-24-2022 16:34-0400Heart rate92 /min Alex Riggins MD Work Phone: [facility]05-24-2022 16:34-6261IaL7% (BldA) [Mass fraction]100 %Alex Riggins MD Work Phone: [facility]05-24-2022 16:34-0400Systolic blood iofmkgpp596 mm[Hg]Alex Riggins MD Work Phone: [facility]05-24-2022 14:46-0400Diastolic blood goaodcwz34 mm[Hg]Mri (I-Stat/1.5t)[facility]05-24-2022 14:46-0400Heart ozxk686 /minMri (I-Stat/1.5t)[facility]05-24-2022 14:46-0400Systolic blood emhrqtog158 mm[Hg]Mri (I-Stat/1.5t)[facility]05-24-2022 13:15-0400Body .2 cmMri (I-Stat/1.5t)[facility]05-24-2022 13:15-0400Body weight 48.08 kgMri (I-Stat/1.5t)[facility] Encounters Encounter DateEncounter TypeCare ProviderFacilityStart: 07-08-2025 End: 05-99-9252Tfsroxdks encounterSheltim Rivera RMAProMedica Physicians Pulmonary/Sleep MedicineStart: 06-19-2025 End: 99-50-0176Udfqhilgs encounterChrisdillon Valencia LPNProMedica Physicians Pulmonary/Sleep MedicineStart: 06-18-2025 End: 46-24-8516Pwamfh flowsheetSteven A Rusher DPM Work Phone: [facility] PodiatryStart: 06-18-2025 End: 50-26-3551Hvthei flowsheetSteven A Rusher DPM Work Phone: [facility] PodiatryStart: 06-18-2025 End: 59-90-3431Ypsppow encounter procedureSteven A Rusher DPM Work Phone: [facility] PodiatryComment on above:Dermatophytosis of nail (Primary Dx); Dystrophic nail; Pain around toenail, right foot; Pain around toenail, left footStart: 06-18-2025 End: 56-81-4207lnumzngbbjDYDECI A RUSHERNot AvailableStart: 06-10-2025 End: 87-21-4013NzkpseClaudia Fonseca LPNProMedanel Physicians Pulmonary/Sleep MedicineComment on above:Chronic respiratory failure with hypoxia and hypercapnia (CMS-HCC) (Primary Dx)Start: 06-04-2025 End: 48-37-4627Jtnsaoagi encounterSgreg ALLENAProMedanel Physicians Pulmonary/Sleep MedicineStart: 05-30-2025 End: 59-65-7854vzynlwvcazJAFUORPage [facility] Hospital Ambulatory PPGStart: 05-30-2025 End: 87-04-1145Wfbgxx outpatient visit 25 minutesUt [facility] DO Work Phone: [facility]monary/Sleep MedicineComment on above:Chronic respiratory failure with hypoxia and hypercapnia (CMS-HCC) (Primary Dx); Chronic obstructive pulmonary disease, unspecified COPD type (CMS-HCC); Pulmonary nodule; Tobacco dependence; Pseudomonas aeruginosa colonizationStart: 05-27-2025 End: 73-53-0729DvzynfBqqmhu Cutcher TECHNICAL ACCOUNT MANAGER-DIRECTOR BIOLOGY Work Phone: [facility]monary/Sleep MedicineComment on above:Chronic obstructive pulmonary disease, unspecified COPD type (CMS-HCC) Start: 05-24-2025 End: 45-61-4102NedspfEkzqmb [facility] DO Work Phone: [facility]monary/Sleep MedicineComment on above:Chronic obstructive pulmonary disease, unspecified COPD type (CMS-HCC); Bronchiectasis (CMS-HCC); Chronic coughStart: 05-03-2025 End: 13-09-0651xsomzojhacSDELXOhioHealth Mansfield Hospitaltart: 04-08-2025 End: 24-91-9262Gsnqswtxy encounterLuiz Tadeo MD Work Phone: [facility] FMComment on above:Generalized anxiety disorderStart: 04-01-2025 End: 59-40-3589fkpnzeqblsPE Mohamed F. OsmanFacility:FTMCStart: 03-29-2025 End: 89-37-2646PqpgzqJdfg Naderer MD Work Phone: [facility] C[facility] FMComment on above:Generalized anxiety disorderStart: 03-26-2025 End: 79-46-7389Mundul flowsMichael Tadeo MD Work Phone: [facility] FMStart: 03-26-2025 End: 11-86-8470Fcqgbm flowsMichael Tadeo MD Work Phone: [facility] FMStart: 03-26-2025 End: 89-29-9389Nyrmmn outpatient visit 25 minutesLuiz Tadeo MD Work Phone: [facility] FMComment on above:Major depressive disorder, recurrent episode, moderate (HCC) (Primary Dx); LUCERO (generalized anxiety disorder) ; 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); Bronchiectasis without complication (HCC); Chronic respiratory failure with hypoxia (HCC); Restless legs syndrome (RLS); Colon cancer screeningStart: 03-26-2025 End: 53-35-2492tdtvfberhlRJWE NADERERNot AvailableStart: 03-22-2025 End: 54-46-8687Cerlgvwtm encounterRoly Cramer MD Work Phone: [facility] CI ENTComment on above:surgery and clearance Start: 03-16-2025 End: 27-14-6043SprgnwAbenih M Elston DO Work Phone: [facility]monary/Sleep MedicineComment on above:Chronic obstructive pulmonary disease, unspecified COPD type ([facility]-HCC) Start: 03-13-2025 End: 07-88-1464KrrwwlYfrcqclKing Brewer MD Work Phone: [facility] Pulmonary/Sleep MedicineComment on above:Chronic obstructive pulmonary disease, unspecified COPD type ([facility]-HCC) Start: 03-06-2025 End: 89-20-8274Sgynibenedina Cramer MD Work Phone: [facility] ENTStart: 03-06-2025 End: 33-94-9912Twdctvenedina Cramer MD Work Phone: [facility] ENTStart: 03-06-2025 End: 86-54-4568rzdwobweymDXIBVT H TIMMISNot AvailableStart: 03-06-2025 End: 93-88-2135Sfrajv outpatient visit 25 minutesRoly Cramer MD Work Phone: [facility] CI ENTComment on above: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 imary Dx); OME (otitis media with effusion), right; Chronic dysfunction of right eustachian tube; Pulmonary emphysema, unspecified emphysema type (HCC)Start: 02-27-2025 End: 37-62-5839Gunokb flowsZuleyka Bey [facility] Work Phone: noMS CI AUDStart: 02-27-2025 End: 28-78-0480Bnnewf flowsZuleyka Anglin Domenico [facility] Work Phone: NOMS CI AUDStart: 02-27-2025 End: 47-15-3230Acrvuauo SupportDegisselle Bey [facility] Work Phone: noMS CI AUDComment on above: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 imary Dx); OME (otitis media with effusion), rightStart: 02-20-2025 End: 28-55-6472Vivxvlnzq Result EncounterLuiz Tadeo MD Work Phone: noms External Department UnsolicitedStart: 02-20-2025 End: 94-69-7922Hlntybxsa Result EncounterLuiz Tadeo MD Work Phone: noms External Department UnsolicitedStart: 02-19-2025 End: 38-10-3205rcucnhjwacMJVQMara White [facility] Centertart: 02-19-2025 End: 63-50-1953Ajbrgmvjct hospital visit by physicianS[address] MammographyComment on above:Encounter for screening mammogram for breast cancerStart: 02-13-2025 End: 12-33-0099Fhaefi flowsheetSteven A Rusher DPM Work Phone: noms PODIATRYStart: 02-13-2025 End: 59-36-5811Rqgxym flowsheetSteven A Rusher DPM Work Phone: noms PODIATRYStart: 02-13-2025 End: 37-17-6718Dfcwqfn encounter procedureSteven A Rusher DPM Work Phone: noms PODIATRYComment on above:Dermatophytosis of nail (Primary Dx); Dystrophic nail; Pain around toenail, right foot; Pain around toenail, left footStart: 02-13-2025 End: 35-40-6469qyonapkqdiGLUFEH A RUSHERNot AvailableStart: 02-01-2025 End: 04-50-7261aydtbzxdwyUOTHYGFulton County Hospital HospitalStart: 01-31-2025 End: 75-75-8559vtatyojrczIKCAOMD.[facility] Ambulatory PPGStart: 01-31-2025 End: 61-88-2946Gjykvp outpatient visit 25 [facility] Work Phone: [facility] Pulmonary/Sleep MedicineComment on above:Bronchiectasis (CMS-HCC) (Primary Dx); Chronic obstructive pulmonary disease, unspecified COPD type (CMS-HCC); Chronic respiratory failure with hypoxia and hypercapnia (CMS-HCC); Chronic cough; Dyspnea on exertion; Leg swellingStart: 01-29-2025 End: 13-82-3682CliwvbAcsq Naderer MD Work Phone: noms CWM FMComment on above:Generalized anxiety disorder (CMS/HCC)Start: 01-24-2025 End: 78-38-9203UrwupePxonbx Higgins MD Work Phone: CardiologyComment on above:Refill RequestStart: 01-15-2025 End: 29-95-5592Xaohqaqgq Triston ALLENAProMedica Physicians Pulmonary/Sleep MedicineStart: 12-27-2024 End: 01-85-7198Spblwvmpo encounterDascooby Tanner CMAProMedica Physicians Pulmonary/Sleep MedicineComment on above:Chronic obstructive pulmonary disease, unspecified COPD type (CMS-HCC); Bronchiectasis (CMS-HCC); Chronic coughStart: 12-17-2024 End: 06-99-9101tizecivcciEN Mohamed F. OsmanFacility:FTMCStart: 12-17-2024 End: 04-97-9192Xbfxobv encounter procedureMousman Braxton [facility] Start: 12-13-2024 End: 45-29-8941buejljxiwgSOMarquise BraxtonFacility:FTMCStart: 12-11-2024 End: 30-40-8097levgxzxrwpMJHKLodlvdyq:[facility] Centertart: 12-11-2024 End: 71-66-7501Ybbrlvy encounter procedureAlex Riggins MD Work Phone: CardiologyComment on above:Chronic systolic (congestive) heart failure (HCC) (Primary Dx)Start: 12-07-2024 End: 95-22-8623Dazzhge encounter procedureMousman Braxton [facility] Start: 11-29-2024 End: 87-89-0266IybddhBdslmu M Elston DO Work Phone: [facility] Pulmonary/Sleep MedicineComment on above:Chronic obstructive pulmonary disease, unspecified COPD type (CMS-HCC); Bronchiectasis (CMS-HCC)Start: 11-24-2024 End: 13-41-3231GdqzdcBenv Naderer MD Work Phone: NOQC CWM FMComment on above:Major depressive disorder, recurrent episode, moderate (CMS/HCC) ; Generalized anxiety disorder (CMS/HCC)Start: 11-22-2024 End: 46-07-4439Vhhncv Hugo Mac DO Work Phone: [facility] Pulmonary/Sleep MedicineComment on above:Chronic obstructive pulmonary disease, unspecified COPD type ([facility]-HCC) (Primary Dx)Start: 11-20-2024 End: 93-94-4691cdoxdcugemUFQJZI Alexia DIORMISNot AvailableStart: 11-14-2024 End: 89-52-6242MjtdezOfye Naderer MD Work Phone: noms CWM FMComment on above:Postoperative painStart: 11-12-2024 End: 79-71-6504Uocypalzj to same day surgery centerMousman FloydBenita Fox [facility] Start: 11-12-2024 End: 09-80-5936kzhzowdjqvXF Levar BraxtonFacility:FTMCStart: 10-29-2024 End: 15-71-2463tumcafujxbYnvkjbo FloydBenita BraxtonFacility:FTMCStart: 10-29-2024 End: 69-75-2410Xxjfwiv encounter procedureVausman FloydBenita Fox [facility] Start: 10-26-2024 End: 16-13-5489QqarvuXuijus Sutter RMAProMedica Physicians Pulmonary/Sleep MedicineStart: 10-16-2024 End: 88-29-2068xftprneqnuJNCGFT A RUSHERNot AvailableStart: 10-16-2024 End: 35-85-4850Wvgaqp outpatient visit 15 minutesSteven A Rusher DPM Work Phone: noms PODIATRYComment on above:Dermatophytosis of nail (Primary Dx); Dystrophic nail; Pain around toenail, right foot; Pain around toenail, left foot; Raynaud's disease without gangreneStart: 10-12-2024 End: 30-27-0282Jwnievvv Result EncounterLuiz Tadeo MD Work Phone: noms External Department UnsolicitedStart: 10-12-2024 End: 10-56-1698Pclxixav Result EncounterLuiz Tadeo MD Work Phone: noms External Department UnsolicitedStart: 10-12-2024 End: 04-63-1923dbjkwsfwddUPWM NADERERPKelsi [facility]uylerville HospitalStart: 10-10-2024 End: 93-29-6496IxxaouBjlq Naderer MD Work Phone: noms CWM FMComment on above:Generalized anxiety disorder (CMS/HCC)Start: 10-05-2024 End: 85-06-1897aomhewqadmHynzoui Irina BraxtonFacility:FTMCStart: 10-05-2024 End: 04-19-6158Ugpsydz encounter procedureMousman Irina Braxton [facility] Start: 10-02-2024 End: 92-01-7049Kqzdktxyb encounterAlex Riggins MD Work Phone: CardiologyStart: 09-24-2024 End: 23-84-0868Bdicxb flowsMichael Tadeo MD Work Phone: noms CWM FMStart: 09-24-2024 End: 63-06-0041Ydplgn flowsMichael Tadeo MD Work Phone: noms CWM FMStart: 09-24-2024 End: 36-78-5504Vaimqod encounter procedureLuiz Tadeo MD Work Phone: noms HealthcareStart: 09-24-2024 End: 89-73-5573Swukgc follow up visit related to original Helena Tadeo MD Work Phone: noms CWM FMComment on above:Medicare annual wellness visit, subsequent (Primary Dx); Generalized anxiety disorder (CMS/HCC); Major depressive disorder, recurrent episode, moderate (CMS/HCC); LUCERO (generalized anxiety disorder) (CMS/HCC); Heart failure with improved ejection fraction (HFimpEF) (CMS/HCC); Chronic respiratory failure with hypoxia (CMS/HCC); Chronic respiratory failure with hypercapnia (CMS/HCC); Bronchiectasis without complication (CMS/HCC); Dyslipidemia (CMS/HCC); Encounter for long-term current use of medication; Breast cancer screening by mammogram; Gastroesophageal reflux disease without esophagitis; Pulmonary hypertension (CMS/HCC); Nonischemic cardiomyopathy (CMS/HCC); Chronic dysfunction of right eustachian tubeStart: 09-24-2024 End: 11-82-5816nzgonfsjonZEOQ NADERERNot AvailableStart: 09-17-2024 End: 25-49-0057mvfoycnfeiPlwqecl F. OsmanFacility:FTMCStart: 09-17-2024 End: 06-47-8145Zsstqlk encounter procedureLevar Braxton [facility] Start: 09-13-2024 End: 98-56-0791Roqhkzcxq encounterSgreg [facility] Pulmonary/Sleep MedicineStart: 09-13-2024 End: 71-66-7988tgjwncddmaLUPBROGood [facility]aritan Hospital Ambulatory PPGStart: 09-13-2024 End: 97-59-6462Wmbhsw outpatient visit [address] [facility] Work Phone: [facility] Pulmonary/Sleep MedicineComment on above:Chronic respiratory failure with hypoxia and hypercapnia ([facility]-HCC) (Primary Dx); Pulmonary nodule; Chronic obstructive pulmonary disease, unspecified COPD type ([facility]-HCC); Bronchiectasis ([facility]-HCC); Pseudomonas aeruginosa colonization; Tobacco dependence; Other emphysema ([facility]-HCC)Start: 09-12-2024 End: 19-49-9929TrfnjkOmsn Naderer MD Work Phone: NOMS [facility] FMComment on above:LUCERO (generalized anxiety disorder) ([facility]/HCC)Start: 09-10-2024 End: 18-62-1456Txxdklsad encounterSgreg [facility]icians Pulmonary/Sleep MedicineStart: 08-27-2024 End: 09-47-5864HthypjQxiiglgreg R[facility]icians Pulmonary/Sleep MedicineComment on above:Chronic obstructive pulmonary disease, unspecified COPD type ([facility]-HCC)Start: 08-22-2024 End: 87-32-7331Gcklby Jeff Tadeo MD Work Phone: NOMS CWM FMStart: 08-22-2024 End: 41-09-7066Daljfv Jeff Tadeo MD Work Phone: NOKA CWM FMStart: 08-22-2024 End: 26-01-7144ctvzunrpeeYHDX NADERERNot AvailableStart: 08-22-2024 End: 15-77-7068Wfksuv outpatient visit 15 minutesLuiz Tadeo MD Work Phone: noms CWM FMComment on above:LUCERO (generalized anxiety disorder) (CMS/HCC) (Primary Dx); Major depressive disorder, recurrent episode, moderate (CMS/HCC)Start: 08-17-2024 End: 39-24-4684Gkhrxblpw encounterAlex Riggins MD Work Phone: CardiologyStart: 08-14-2024 End: 71-69-8199Vpxxmivwr encounterYuki Car MD Work Phone: Internal MedicineComment on above:ResultsStart: 08-13-2024 End: 72-28-5115umwulvhaheObuioel F. OsmanFacility:FTMCStart: 08-13-2024 End: 52-91-6926Xuwbgcn encounter procedureMousman Braxton [facility] Start: 08-09-2024 End: 80-02-4397WzgyayYqlm Naderer MD Work Phone: noms CWM FMComment on above:Generalized anxiety disorder (CMS/HCC)Start: 08-08-2024 End: 46-99-1015Cexuqnhan encounterAlex Riggins MD Work Phone: CardiologyStart: 07-30-2024 End: 03-88-5450Jhixbypzw encounterShelby Miguel RMAProMedica Physicians Pulmonary/Sleep MedicineStart: 07-26-2024 End: 14-03-1450BosfuhExditx M Bubba Work Phone: [facility] Pulmonary/Sleep MedicineComment on above:Bronchiectasis ([facility]-HCC); Chronic coughStart: 07-23-2024 End: 10-88-0032Fzqtngmbq Dante Riggins MD Work Phone: CardiologyStart: 07-19-2024 End: 90-53-9130KrxqxjIokhkn Sutter RMAProMedica Physicians Pulmonary/Sleep MedicineComment on above:Chronic obstructive pulmonary disease, unspecified COPD type ([facility]-HCC)Start: 07-13-2024 End: 01-27-6026Rhuwvonpg encounterSgreg Rivera RMAProMedica Physicians Pulmonary/Sleep MedicineStart: 07-12-2024 End: 21-07-6535RhisimErij Naderer MD Work Phone: NOMS CWM FMComment on above:Generalized anxiety disorder ([facility]/HCC)Start: 07-06-2024 End: 97-99-6680UrlcphRoctut Higgins MD Work Phone: CardiologyComment on above:Rx RefillsStart: 07-05-2024 End: 60-58-0192Itbvjwenedina Tadeo MD Work Phone: NOMS CWM FMStart: 07-05-2024 End: 17-25-0353Hpuzdstoya Tadeo MD Work Phone: NOMS CWM FMStart: 07-05-2024 End: 97-35-4477hlfwrvtshnUWTZ NADERERNot AvailableStart: 07-05-2024 End: 29-71-3370Ldowqg outpatient visit 25 minutesLuiz Tadeo MD Work Phone: NOMS CWM FMComment on above:Major depressive disorder, recurrent episode, moderate (CMS/HCC) (Primary Dx); LUCERO (generalized anxiety disorder) (CMS/HCC); Bronchiectasis without complication (CMS/HCC); May-Thurner syndromeStart: 07-03-2024 End: 63-15-1043Lxagbixtx to same day surgery Raulito Lott MD Work Phone: Vascular SurgeryComment on above: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)Start: 07-03-2024 End: 94-81-2835dwgivilbmaVTXV A NADERERFacility:[facility] Centertart: 07-03-2024 End: 04-84-8662Ctatbolqccph consultation with Keo Lott MD Work Phone: Vascular SurgeryStart: 06-28-2024 End: 32-31-7578Lbpuykyzb to same day surgery Raulito Lott MD Work Phone: Vascular SurgeryComment on above:Office VisitStart: 06-28-2024 End: 00-99-4687ubaskwckgcXcb Miler MD Work Phone: Vascular SurgeryStart: 06-28-2024 End: 31-08-1272Odtupmckc encounterChandra Shadel RNProMedica Physicians Pulmonary/Sleep MedicineStart: 06-19-2024 End: 28-67-8236Nxowjdh encounter Alistair Lott MD Work Phone: Vascular SurgeryComment on above: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)Start: 06-14-2024 End: 79-04-9587Rpfaqvtpd encounterSgreg Rivera RMAProMedica Physicians Pulmonary/Sleep MedicineStart: 06-06-2024 End: 71-28-4343WpzifyGlmidc M Elston DO Work Phone: [facility] Pulmonary/Sleep MedicineComment on above:Other emphysema (CMS-HCC); Bronchiectasis (CMS-HCC)Start: 06-01-2024 End: 41-75-9794Jsrlsjbtt encounterHugo Lott MD Work Phone: Vascular SurgeryStart: 05-30-2024 End: 13-48-9830Ryuwrt flowsheetLuiz Tadeo MD Work Phone: NOVD CWM FMStart: 05-30-2024 End: 69-55-6605Gejxev flowsheetLuiz Tadeo MD Work Phone: noms CWM FMStart: 05-30-2024 End: 56-50-2148Jhywbljdc encounterSgreg Rocha Physicians Pulmonary/Sleep MedicineStart: 05-30-2024 End: 76-88-7980Eeshic outpatient visit 25 minutesLuiz Tadeo MD Work Phone: noms CWM FMComment on above:Major depressive disorder, recurrent episode, moderate (HCC) (CMS/HCC) (Primary Dx); LUCERO (generalized anxiety disorder) (CMS/HCC); Heart failure with improved ejection fraction (HFimpEF) (CMS/HCC); Seasonal allergic rhinitis due to pollenStart: 05-30-2024 End: 01-27-9275jyhlzrfdmfYnweejn Hornacek MD Work Phone: Vascular MedicineComment on above: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); Paresthesia; DDD (degenerative disc disease), lumbarStart: 05-30-2024 End: 25-93-5166Twgbbukwtynq consultation with patientYuki Car MD Work Phone: Vascular MedicineStart: 05-28-2024 End: 07-22-9929hlughszhmoKYVCHRV E WILLIAMSProMedica [facility]ylerville HospitalStart: 05-28-2024 End: 34-03-2463Pgoecnygg encounterAlex Riggins MD Work Phone: CardiologyStart: 05-25-2024 End: 18-45-4590Nnjtzrnln encounterSgreg Rocha Physicians Pulmonary/Sleep MedicineComment on above:Chronic respiratory failure with hypoxia and hypercapnia (CMS-HCC) (Primary Dx); SOB (shortness of breath)Start: 05-24-2024 End: 07-30-6163Xzszekttk encounterYuki Car MD Work Phone: Vascular MedicineComment on above:Returning Patient's CallStart: 94-98-5635uldlteaaylCZWWKaylynn Luisedo HospitalStart: 05-21-2024 End: 53-60-9432Eeomlbzae encounterSsharonda Epps Bubba DO Work Phone: [facility] Pulmonary/Sleep MedicineStart: 05-17-2024 End: 17-61-1494EsxcvfXikp Naderer MD Work Phone: noms CWM FMComment on above:Major depressive disorder, recurrent episode, moderate (HCC) (CMS/HCC)Start: 05-17-2024 End: 85-98-2624Bjzkzl outpatient visit 25 minutesDakotanoe Mac DO Work Phone: [facility] Pulmonary/Sleep MedicineComment on above:Chronic obstructive pulmonary disease, unspecified COPD type (CMS-HCC) (Primary Dx); Chronic respiratory failure with hypoxia and hypercapnia (CMS-HCC); Chronic cough; Bronchiectasis (CMS-HCC); Pseudomonas aeruginosa colonization; Tobacco dependence; Mycobacterium szulgai infectionStart: 05-16-2024 End: 71-97-8545Tsfdqajzj encounterYuki Car MD Work Phone: Vascular MedicineStart: 05-15-2024 End: 60-75-3180VrcceeIjfd Naderer MD Work Phone: noms CWM FMComment on above:Generalized anxiety disorder (CMS/HCC)Start: 05-02-2024 End: 64-11-1038Ocgjyk outpatient visit 25 minutesLuiz Tadeo MD Work Phone: noms CWM FMComment on above:Major depressive disorder, recurrent episode, moderate (HCC) (CMS/HCC) (Primary Dx); LUCERO (generalized anxiety disorder) (CMS/HCC); Bronchiectasis without complication (CMS/HCC); Seasonal allergic rhinitis due to pollen; Heart failure with improved ejection fraction (HFimpEF) (CMS/HCC)Start: 05-01-2024 End: 22-48-7963Bkmbsno encounter procedureReshari Carpio APRN.CNP Work Phone: CardiologyComment on above:Chronic systolic HF (heart failure) (HCC); Protein-calorie malnutrition, unspecified severity (HCC); Chronic respiratory failure with hypoxia (HCC); Ventricular tachycardia (HCC)Start: 04-27-2024 End: 83-21-5255bwtdzzvwhgIALNMRRosa Marcelo [facility] Hospitaltart: 04-23-2024 End: 13-94-0993RpuazaIvbwwv Higgins MD Work Phone: CardiologyComment on above:Rx RefillsStart: 04-15-2024 End: 83-42-6604YdratgEktujr M Elston DO Work Phone: [facility] Pulmonary/Sleep MedicineComment on above:Bronchiectasis (CMS-HCC)Start: 04-11-2024 End: 89-23-8022Xalnbprvb Michael Mac DO Work Phone: [facility] PharmacyStart: 04-10-2024 End: 08-57-9310Pgtpwb Hugo Mac DO Work Phone: [facility] Pulmonary/Sleep MedicineComment on above:Chronic obstructive pulmonary disease, unspecified COPD type (CMS-HCC) Chronic obstructive pulmonary disease, unspecified COPD type ([facility]-HCC) (Primary Dx)Start: 04-02-2024 End: 18-84-4176Xmglareqi Michael Mac DO Work Phone: [facility]erca Physicians Pulmonary/Sleep MedicineStart: 03-30-2024 End: 85-11-6218Qcmjwjcfw Result EncounterGeneric External Data ProviderNOMS External Department UnsolicitedStart: 03-30-2024 End: 05-91-0023Cvonpmmqt Result EncounterGeneric External Data ProviderNOMS External Department UnsolicitedStart: 03-30-2024 End: 97-19-4670Yjshwdtqsv hospital visit by physicianCt [facility] Work Phone: RadiologyComment on above: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] Start: 03-26-2024 End: 27-65-3996zrcvvhvlgfLJFBEDArmando Siegel [facility] Hospitaltart: 03-24-2024 End: 44-17-2007UzwdxwOvxckz M Elston DO Work Phone: [facility] Pulmonary/Sleep MedicineComment on above:Bronchiectasis ([facility]); Chronic coughStart: 03-21-2024 End: 78-91-5946rreofhroonIJSCOT M ELSTONKettering Health Hamiltontart: 03-20-2024 End: 63-70-5791Cutdqg OnlyConstance Sidel RNProMedica Physicians Pulmonary/Sleep MedicineComment on above:Chronic obstructive pulmonary disease, unspecified COPD type ([facility])Start: 03-13-2024 End: 40-74-7319Azcmnj OnlyKelly Oscar RNProMedica Physicians Pulmonary/Sleep MedicineComment on above:Chronic obstructive pulmonary disease, unspecified COPD type ([facility])Start: 03-07-2024 End: 37-38-2870Uaovkxnxr encounterLuiz Tadeo MD Work Phone: [facility] Systemstart: 62-08-7547Ciwxxnukk encounterYuki Car MD Work Phone: Vascular MedicineComment on above:Patient calling for results from 02/21 ultrasoundStart: 03-01-2024 End: 54-26-1717Laviwe Hugo Mac DO Work Phone: [facility] Pulmonary/Sleep MedicineComment on above:Other emphysema ([facility]); Bronchiectasis ([facility])Start: 02-18-2024 End: 47-51-2049gsbllbosbtIHNYEX M ELSTONKettering Health Hamiltontart: 02-17-2024 End: 01-38-1261Retyld OnlyConstance Sidel Anuja Physicians Pulmonary/Sleep MedicineComment on above: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(Primary Dx)Start: 02-16-2024 End: 99-43-9488hokjpqfjyrVDJIKaylynn Jarrell [facility] Hospitaltart: 02-14-2024 End: 83-09-1072Mkreai Hugo Mac DO Work Phone: [facility] Pulmonary/Sleep MedicineComment on above:Bronchiectasis with acute lower respiratory infection ([facility]) (Primary Dx); Pneumonia due to Pseudomonas aeruginosa (CMS-HCC)Start: 02-09-2024 End: 81-89-7207Ztysmd outpatient visit 15 minutesDakotanoe Mac DO Work Phone: [facility] Pulmonary/Sleep MedicineComment on above:Chronic obstructive pulmonary disease, unspecified COPD type ([facility]-HCC) (Primary Dx); Chronic respiratory failure with hypoxia and hypercapnia (CMS-HCC); Bronchiectasis with acute lower respiratory infection ([facility]-HCC); Pseudomonas aeruginosa colonization; Tobacco dependenceStart: 02-08-2024 End: 08-57-9335Gcxxlg FredLaura Mac DO Work Phone: [facility] Pulmonary/Sleep MedicineComment on above:Bronchiectasis with acute lower respiratory infection ([facility]-HCC) (Primary Dx)Start: 02-07-2024 End: 17-56-0905Bhxulyxlf encounterSgreg Rocha Physicians Pulmonary/Sleep MedicineStart: 02-06-2024 End: 80-22-0061Csydwx Hugo Mac DO Work Phone: [facility] Pulmonary/Sleep MedicineStart: 01-12-2024 End: 51-37-2924Ohbnxel encounter procedureYuki Car MD Work Phone: Vascular MedicineComment on above: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); Acrocyanosis (HCC); Venous refluxStart: 01-11-2024 End: 08-66-5501Wupmnyexp Result EncounterGeneric External Data ProviderNOMS External Department UnsolicitedStart: 01-11-2024 End: 96-12-7331Llahpdcpj Result EncounterGeneric External Data ProviderNOMS External Department UnsolicitedStart: 01-10-2024 End: 88-85-2607Hhjjajofb Result EncounterGeneric External Data ProviderNOMS External Department UnsolicitedStart: 01-10-2024 End: 75-02-0381Mgisxpbfp Result EncounterGeneric External Data ProviderNOMS External Department UnsolicitedStart: 12-29-2023 End: 53-57-6930RlwxkvRcacyp Sutter RMAProMedica Physicians Pulmonary/Sleep MedicineStart: 12-26-2023 End: 38-96-6868Iwieha OnlyConstance Sidel RNProMedica Physicians Pulmonary/Sleep MedicineComment on above:Other emphysema ([facility]-HCC); Bronchiectasis ([facility]-H[facility])Start: 11-10-2023 End: 34-78-2176Rmlshmnkd encounterAlex Riggins MD Work Phone: CardiologyStart: 11-10-2023 End: 71-85-4698Drpnzh outpatient visit 15 minutesShnoe Mac DO Work Phone: [facility] Pulmonary/Sleep MedicineComment on above:Bronchiectasis (Primary Dx); Cigarette nicotine dependence, uncomplicated; Chronic obstructive pulmonary disease, unspecified COPD type ([facility]-HCC); Chronic respiratory failure with hypoxia and hypercapnia ([facility]-HCC); Tobacco dependence; Pseudomonas aeruginosa colonizationStart: 11-07-2023 End: 09-84-7822Tzcjmldig encounterAlex Riggins MD Work Phone: CardiologyComment on above:Received Outside Medical RecordsStart: 11-07-2023 End: 37-49-9939Zxpzbzd encounter procedureYuki Car MD Work Phone: Vascular MedicineComment on above:Venous hypertension (Primary Dx); Acrocyanosis (HCC); May-Thurner syndrome; Discoloration of skin of multiple sites of lower extremity; NICM (nonischemic cardiomyopathy) (HCC)Start: 11-01-2023 End: 60-54-8666Bjauomd encounter procedureAlex Riggins MD Work Phone: CardiologyComment on above:Chronic systolic HF (heart failure) (HCC) (Primary Dx); Protein-calorie malnutrition, unspecified severity (HCC); Chronic respiratory failure with hypoxia (HCC); Ventricular tachycardia (HCC)Start: 89-19-8393OvupdaVehnlv M Elston DO Work Phone: [facility] Pulmonary/Sleep MedicineComment on above:Chronic obstructive pulmonary disease, unspecified COPD type ([facility]-H[facility]); BronchiectasisStart: 61-46-7264Ionslj OnlyConstance Sidel RNProMedica Physicians Pulmonary/Sleep MedicineComment on above:Chronic obstructive pulmonary disease, unspecified COPD type ([facility]-H[facility])Start: 09-23-2023 End: 51-71-7894Lnzrrhywhj and management of inpatientSSHARONDA Epps BUBBAMiami Valley Hospitaltart: 09-22-2023 End: 16-80-0810Llokkivql department patient visitKYBrightlook Hospital HospitalStart: 09-22-2023 End: 37-77-9889Svkicvorje and management of inpatientMARC NADERERPThe Jewish Hospitaltart: 09-22-2023 End: 58-62-1681Hnscdleuc department patient visitKYRA [facility] HospitalStart: 49-20-7465Ywpfkdtpv encounterSsharonda Supriya Bubba DO Work Phone: [facility] Pulmonary/Sleep MedicineStart: 02-47-3261Xnybpq OnlyLaura Epps Bubba DO Work Phone: [facility] Pulmonary/Sleep MedicineComment on above:Bronchiectasis (Primary Dx); Pseudomonas aeruginosa infectionStart: 72-48-5139Tpsqfxzav encounterMarsami Falcon RNCardiologyComment on above:Forms ([employer] )Start: 07-12-2023 Telephone encounterAlex Riggins MD Work Phone: CardiologyComment on above:BI Patient assistanceStart: 12-86-2558Tmdcyywup encounterAlex Riggins MD Work Phone: CardiologyComment on above:Outside Labs ResultsStart: 05-12-6821OitespMyueqe Higgins MD Work Phone: CardiologyComment on above:Rx RefillsStart: 04-07-2023 RefSaundra Riggins MD Work Phone: CardiologyComment on above:Follow Up; Rx RefillsStart: 03-24-2023 End: 64-16-8770jszlefmzuuJXPQ A NADERERFacility:[facility] HospitalStart: 03-24-2023 ambulatoryALEX RIGGINSFacility:[facility] HospitalStart: 03-24-2023 End: 75-66-8591Yhgcilbxbk hospital visit by [facility] Echocardiology TestingComment on above:Chronic systolic HF (heart failure) (HCC) [I50.22]Peripheral arterial disease (HCC) [I73.9]Start: 75-30-0920Bbbdrmfpt encounterAlex Riggins MD Work Phone: CardiologyComment on above:Follow UpStart: 02-07-2023 Telephone encounterAlex Riggins MD Work Phone: CardiologyComment on above:AppointmentStart: 12-30-2022 End: 22-19-1374Nwwxsr OnlyAlex Riggins MD Work Phone: CardiologyComment on above:Hypo-osmolality and hyponatremia (Primary Dx); Acute on chronic systolic (congestive) heart failure (HCC)Hypo-osmolality and hyponatremia (Primary Dx); Cardiomyopathy, nonischemic (HCC); Chronic systolic heart failure (HCC); Ventricular tachycardia (HCC); Protein-calorie malnutrition, unspecified severity (HCC)Start: 12-29-2022 Telephone encounterAlex Riggins MD Work Phone: CardiologyComment on above:Follow UpStart: 12-20-2022 End: 40-57-8886qqoasiqhjuAQ LUIZ Linnette NADERERFacility:L8Ujxeu: 39-05-9158nszrlyetai Alex Riggins MD Work Phone: CardiologyComment on above:TestingStart: 57-92-3331V- mail encounter from Jenny Riggins MD Work Phone: [facility] MAINStart: 91-69-4959UbtzwxZkfkum Higgins MD Work Phone: CardiologyComment on above:Rx RefillsAdvice OnlyStart: 08-22-6365BtjfgqKmdtfr Higgins MD Work Phone: CardiologyStart: 39-42-2200Apqoxfkeq encounterAlex Riggins MD Work Phone: CardiologyComment on above:Results (Lab Rcvd)Start: 10-19-2022 End: 08-47-9826Zvwwpch encounter procedureAlex Riggins MD Work Phone: CardiologyComment on above:Chronic systolic HF (heart failure) (HCC) (Primary Dx); Peripheral arterial disease (HCC)Start: 09-01-2022 End: 88-37-6567vlvfmyktobDW LUIZ A NADERERFacility:P8Wxuhu: 34-31-2178Cdlrekinr encounterAlex Riggins MD Work Phone: CardiologyComment on above:EntrestoStart: 06-28-2022 RefillAndmaria guadalupe Riggins MD Work Phone: CardiologyComment on above:Rx RefillsStart: 06-07-2022 ambulatoryAlex Riggins MD Work Phone: CardiologyComment on above:Bi Cares Pt Assistance ProgramStart: 26-47-1951O-mail encounter from caregiverAlex Riggins MD Work Phone: [facility] MAINStart: 06-41-2382Nohsayxem encounterAlex Riggins MD Work Phone: CardiologyComment on above:Lab Orders (Faxed)Start: 07-80-4438Jgurhd OnlyAlex Riggins MD Work Phone: CardiologyComment on above:Chronic systolic (congestive) heart failure (HCC) (Primary Dx)Start: 05-04-2022 End: 15-93-2728Etmypqp encounter procedureAlex Riggins MD Work Phone: CardiologyComment on above:Chronic systolic heart failure (HCC) (Primary Dx)Start: 02-23-2022 End: 24-73-1859Hwrlchztia hospital visit by physicianSpectct3 Work Phone: Molecular ImagingComment on above:Chronic systolic HF (heart failure) (HCC) [I50.22]Start: 87-15-4274Yjurxjqcu encounterAlex Riggins MD Work Phone: CardiologyComment on above:Advice OnlyStart: 01-26-2022 End: 55-04-3696Abxnjl OnlyAgobell Dave MD Work Phone: cardiologyComment on above:Anxiety (Primary Dx) Cardiomyopathy, unspecified type (HCC) [I42.9]Chronic systolic HF (heart failure) (HCC) (Primary Dx); Other cardiomyopathy (HCC)Start: 97-67-3346Gqmkfhmgc encounterAlex Riggins MD Work Phone: CardiologyComment on above:Clinical UpdateStart: 78-83-6924Oyxebmfsj encounterAlex Riggins MD Work Phone: CardiologyComment on above:CounselingStart: 09-15-2021 End: 22-74-2922Etmatdcar encounterSsharonda Mac DO Work Phone: [facility] MedicineStart: 02-14-2021 End: 22-24-8026Iukrxoxoqe hospital visit by physicianSPremier [facility] MammographyComment on above:Breast cancer screening by mammogram Procedures DateProcedureProcedure DetailPerforming ClinicianStart: 79-14-8658IOFUYVNY FUNCTION TESTSYuki Bey [facility] Work Phone: start: 63-22-9624QQD ALMA DELIA DIGITAL SCREEN Rasheed Tadeo MD Work Phone: Start: 02-19-2025 End: 13-27-4425Xuhozjejm mammography bi 2-view breast inc cadMar Bennett Tadeo MD Work Phone: Start: 41-26-3003Lykfzg-up visitFollow-upSSHARONDA MACStart: 97-43-3584Brhwaqutypqt venography of iliac veinMohamed Fox Start: 02-27-8400Mqaei metabolic panel calcium total Luiz Tadeo MD Work Phone: Start: 88-46-1231Kuvkt 1996 panel - Serum or Plasma Alex Riggins MD Work Phone: Start: 25-13-0887My angio abd&plvis cntrst mtrl w/wo cntrst John Car MD Work Phone: Start: 66-50-3465YFL ABD/PELV W IVCONGeneric External Data ProviderStart: 32-72-8134Jzq-scan aorta ivc iliac vascl/bpgs uni/lmtd Generic External Data ProviderStart: 79-67-6539TC EXT VENOUS REFLUX ZAHIRA LMTD Generic External Data ProviderStart: 91-25-3141Kotkh depression screening assessmentConstance Sidel RNStart: 90-31-6687Hvwws 1995 panel - Serum or Plasma Yuki Car MD Work Phone: Start: 43-54-4330Mqnu tthrc r-t 2d w/wom-mode compl spec&colr Zac Riggins MD Work Phone: Start: 42-95-6635SLIA Josiane Riggins MD Work Phone: Start: 32-85-7649Kks-invasive physiologic study extremity 3 Nicole Riggins MD Work Phone: Start: 63-89-5715Qjksr depression screening assessment Alex Riggins MD Work Phone: Start: 73-59-6427Dm loclzj karo spect w/ct 1 area 1 day Heidi Riggins MD Work Phone: Start: 53-82-4183Aigqubs mri w/wo contrast & further Ysabel Riggins MD Work Phone: Start: 45-95-9543Exbro depression screening assessment Alex Riggins MD Work Phone: Start: 02-14-2021 End: 21-64-6802Pwqqihxru mammography bi 2-view breast inc Ann Marie Stearns Work Phone: Start: 19-51-3891Kvabi 1995 panel - Serum or Plasma Alex Riggins MD Work Phone: AppendectomyMohamed Fox breast biopsy and related proceduresMohamed Fox bronchoscopyMohamed Fox CholecystectomyMohamed Fox ColonoscopyMohamed Fox Extraction of cataractMohamed Fox HysterectomyMohamed Fox Ligation of fallopian tubeMohamed Fox Specimen from lung obtained by biopsy (specimen)Levar Braxton Plan of Treatment DateCare ActivityDetailAuthorStart: 72-56-5435Tmvtc panelLipid Screening [facility]tart: 01-98-8304Imkjz panelLipid ScreeningHighland District Hospital Start: 38-10-8100Yiwfmekzo for malignant neoplasm of colonNOMS HealthcareStart: 38-08-3913Xyullszx ScreeningDiabetes ScreeningGreene Memorial Hospitaltart: 02-19-2027 Screening for malignant neoplasm of breastBreast cancer screenNaval Medical Center PortsmouthStart: 07-27-5690Hirzvbrp ScreeningDiabetes ScreeningHighland District Hospital Start: 36-92-6276Qodpapxk ScreeningDiabetes ScreeningGreene Memorial Hospitaltart: 24-35-6308GWrA,Tdap and Td Vaccines (2 - Td or Tdap)DTaP,Tdap and Td Vaccines (2 - Td or Tdap)[facility] SystemStart: 79-92-4370JGuB/Tdap/Td vaccine (2 - Td or Tdap)DTaP/Tdap/Td vaccine (2 - Td or Tdap)[facility]smouthStart: 84-58-6610Xtitx microalbumin profileDTaP,Tdap,Td Vaccine (2 - Td or Tdap) [facility]tart: 50-24-0550Lzegf BMI ScreeningAdult BMI ScreeningProMedica Fostoria Community Hospital SystemStart: 61-91-0218Lypivuq ScreeningTobacco ScreeningCount includes the [facility] Hospitaltart: 76-81-3974HRKKBYPU SCREENDIABETES SCREENHighland District Hospital Start: 15-63-5789Gsckbdnh ScreeningDiabetes ScreeningGreene Memorial Hospitaltart: 08-87-1453Smiuefgvh for malignant neoplasm of breastMammogramNOMS Healthcare Start: 13-66-1112Aifmx BMI ScreeningAdult BMI ScreeningSheltering Arms Hospital Start: 65-62-2668Hozbtvo ScreeningTobacco ScreeningCount includes the [facility] Hospitaltart: 50-22-7725XQHWQOEF SCREENDIABETES SCREENGreene Memorial Hospitaltart: 84-19-0364Descp 1996 panel - Serum or PlasmaLipid ScreeningGreene Memorial Hospitaltart: 11-12-2025 Lipid panelLipid ScreeningGreene Memorial Hospitaltart: 35-05-9168JXHTQ SCREENLIPID SCREENGreene Memorial Hospitaltart: 10-21-2025 End: 15-97-5106Yeocyzy encounter fmulbwupb80/16/2026 1:15 PM EST Procedure Visit [facility] [address] [place] [address] Marcella Jaime [facility] [address] [place] [address] LEONOR [facility] PodiatryStart: 09-30-2025 End: 55-96-7778Dbnoxqp encounter ultozpnlh61/26/2026 1:30 PM EST Office Visit [facility] [address] [place] [address] Luiz Tadeo MD [address] [place] [address] LEONOR EPPERSON FMStart: 01-20-2026Medicare Annual Wellness (AWV)Medicare Annual Wellness (AWV)[facility] HealthcareStart: 25-86-8052Cqwtg BMI ScreeningAdult BMI ScreeningCount includes the [facility] Hospitaltart: 39-59-2304Qqytyxb ScreeningTobacco ScreeningCount includes the [facility] Hospitaltart: 08-15-2025 End: 79-50-0003Oxuwzcg encounter qshfzchwi38/11/2025 3:15 PM EST Office Visit [facility] [address] [place] [address] Laura Mac, DO [address] [address] [facility]/Sleep MedicineStart: 07-18-2025 End: 00-88-5933Jbwauhi encounter vcrcyajzl68/13/2025 1:00 PM EST Appointment [facility] [address] [place] [address] Laura Mac, DO [address] [address] [facility] [place] ImagingStart: 06-20-2025 End: 49-75-9658Jkrerdu encounter fodrzwems04/16/2025 3:00 PM EDT Appointment [facility] [address] [place] [address] Laura Mac, DO [address] [address] [facility] [place] ImagingStart: 06-18-2025 End: 38-03-8242Bgzvjps encounter procedureCardiologyComment on above:DX:Chronic systolic (congestive) heart failure (HCC)ArrivedStart: 06-12-2025 End: 38-51-0830IPF panel - Blood by Automated countCOMPLETE BLOOD COUNT Lab Routine Chronic systolic (congestive) heart failure (HCC) Expected: 06/12/2025, Expires: 09/11/2025leveland ClinicComment on above:Expected: 06/12/2025, Expires: 09/11/2025Start: 06-12-2025 End: 95-16-2498Vhunyzqncykfa metabolic 2000 panel - Serum or PlasmaCOMPREHENSIVE METABOLIC PANEL Lab Routine Chronic systolic (congestive) heart failure (HCC) Expected: 06/12/2025, Expires: 09/11/2025[facility] Work Phone: Comment on above:Expected: 06/12/2025, Expires: 09/11/2025Start: 06-12-2025 End: 06-76-2469Qjurp 1996 panel - Serum or PlasmaLIPID PANEL, FASTING Lab Routine Chronic systolic (congestive) heart failure (HCC) Expected: 06/12/2025, Expires: 09/11/2025leveland ClinicComment on above:Expected: 06/12/2025, Expires: 09/11/2025Start: 06-12-2025 End: 06-49-9921Blpoxohnbdk peptide.B prohormone N-Terminal [Mass/volume] in Serum or PlasmaNT PRO BNP Lab Routine Chronic systolic (congestive) heart failure (HCC) Expected: 06/12/2025, Expires: 09/11/2025leveland ClinicComment on above:Expected: 06/12/2025, Expires: 09/11/2025Start: 05-30-2025 End: 56-24-9939Luvyjxm encounter wcmkhonyv30/25/2025 3:30 PM EDT Office Visit [facility] [address] [place] [address] [place] [address] [place] [address] [facility]/Sleep MedicineStart: 13-72-6628Snbnn BMI ScreeningAdult BMI Screening Pro[facility]orth[facility] center Health SystemStart: 70-85-3468PMCWB-19 Vaccine ( season) COVID-19 Vaccine ( season)[facility] SystemStart: 05-06-2025 COVID-19 Vaccine ( season)COVID-19 Vaccine ( season) [facility] SystemStart: 62-38-8671Huxvxdwwl vaccinationProUniversity Hospitals [facility] Medical Centerca Health SystemStart: 96-21-7001XWKDQ-19 Vaccine ( season)COVID-19 Vaccine ( season)[facility]outhStart: 48-18-9815Lbkkj-19 Vaccine ( season)Covid-19 Vaccine ( season)[facility]tart: 28-26-6861Arxdyurlw vaccinationFlu vaccine (Season Ended)[facility]outhStart: 03-26-2025 End: 43-41-6777Uojfusetrmx colorectal cancer DNA and occult blood screening [Presence] in StoolCologuard colon cancer screening Lab Routine Colon cancer screening Expected: 03/26/2025 (Approximate), Expires: 03/26/2026[facility] Work Phone: Comment on above:Expected: 03/26/2025 (Approximate), Expires: 03/26/2026Start: 03-26-2025 End: 23-77-9903Pxjertv encounter procedureNOMS CWM FMComment on above:Arrived Start: 65-61-8424Cizaibi ScreeningTobacco ScreeningCount includes the [facility] Hospitaltart: 03-06-2025 End: 06-91-9183Epcatle encounter ehuwirbba47/02/2025 1:00 PM EDT Office Visit [facility] [address] [address] Roly Cramer MD [address] [address] [facility] ENTStart: 02-27-2025 End: 22-87-4349Xizvjyrj SupportNOMS CI AUDComment on above:ArrivedStart: 02-13-2025 End: 16-43-1143Ymilavt encounter procedureNOMS FH PODIATRYComment on above: ArrivedStart: 33-70-3316Aavrl BMI ScreeningAdult BMI ScreeningCount includes the [facility] Hospitaltart: 42-66-0925Wzjglju ScreeningTobacco ScreeningSheltering Arms Hospital Start: 02-07-2025 End: 68-31-3814Dcfutxi encounter atuvczcvl12/05/2025 3:30 PM EDT Office Visit [facility] [address] [place] [place] [address] Laura Mac, DO [address] [address] [facility]/Sleep MedicineStart: 01-31-2025 End: 62-24-9613IR Chest PA and LateralX-ray chest 2 views Imaging Routine Dyspnea on exertion Leg swelling Expected: 01/31/2025, Expires:01/31/2026 [facility] SystemComment on above:Expected: 01/31/2025, Expires: 01/31/2026Start: 12-27-2024 End: 95-09-5087Kzvefgw encounter lemclfaid09/24/2025 10:15 AM EDT Office Visit [facility] [address] [place] [place] [address] Laura Mac, DO [address] [address] [facility]/Sleep MedicineStart: 15-16-6406Xefmgtbcb for malignant neoplasm of colonGreene Memorial Hospitaltart: 11-20-2024 End: 20-31-6470Lqtfzoz encounter skujsaods80/18/2025 1:10 PM EDT Office Visit [facility] 112 [facility] [address] [place] [address] Roly Cramer MD 112 [facility] [address] [place] [address] [facility] CI ENTStart: 11-13-2024 End: 54-15-9701Gtsmxkd encounter ksepdnwbl68/11/2025 11:30 AM EDT Office Visit Cardiology [address] [place] [address] Rptnlkc, Andrew, MD [address] [place], [place] [id number] Dx: Chronic systolic HF (heart failure) (HCC);Protein-calorie malnutrition, unspecified severity (HCC);Chronic respiratory failure with hypoxia (HCC);Ventricular tachycardia (HCC)CardiologyComment on above:Dx: Chronic systolic HF (heart failure) (HCC);Protein-calorie malnutrition, unspecified severity (HCC);Chronic respiratory failure with hypoxia (HCC);Ventricular tachycardia (HCC)Start: 07-67-8434Otqus BMI ScreeningAdult BMI Screening Count includes the [facility] Hospitaltart: 43-42-1220Vxxnxqx ScreeningTobacco Screening Count includes the [facility] Hospitaltart: 73-82-3177DMVIAPMN SCREENDIABETES SCREENGreene Memorial Hospitaltart: 10-16-2024 End: 52-97-0746Tihiwbi encounter aawfwbtke49/11/2025 1:45 PM EST Office Visit [facility] [address] [place] [address] Marcella Jaime DPM [address] [place], [place] [address] [facility]S PODIATRYStart: 88-90-0688Joimj BMI ScreeningAdult BMI Screening Count includes the [facility] Hospitaltart: 09-24-2024 End: 51-27-2432Iypwb metabolic 1998 panel - Serum or PlasmaBasic metabolic panel Lab Routine Encounter for long-term current use of medication Expected: 2024 (Approximate), Expires: 09/24/2025[facility] Work Phone: Comment on above:Expected: 09/24/2024 (Approximate), Expires: 09/24/2025Start: 09-24-2024 End: 24-17-8384MVJ W Auto Differential panel - BloodCBC and differential Lab Routine Encounter for long-term current use of medication Expected: 09/24/2024 (Approximate), Expires: 09/24/2025[facility] HealthcareComment on above:Expected: 09/24/2024 (Approximate), Expires: 09/24/2025Start: 09-24-2024 End: 79-47-1511Byvrbmz function 2000 panel - Serum or PlasmaHepatic function panel Lab Routine Encounter for long-term current use of medication Expected: 09/24/2024 (Approximate), Expires: 09/24/2025NOM[facility] HealthcareComment on above: Expected: 09/24/2024 (Approximate), Expires: 09/24/2025Start: 09-24-2024 End: 42-43-0471Icvkb 1996 panel - Serum or PlasmaLipid panel Lab Routine Dyslipidemia (CMS/HCC) Expected: 09/24/2024 (Approximate), Expires: 09/24/2025 [facility] HealthcareComment on above:Expected: 09/24/2024 (Approximate), Expires: 09/24/2025Start: 09-24-2024 End: 92-40-8601MB Breast - bilateral ScreeningBilateral screening mammogram Imaging Routine Breast cancer screening by mammogram Expected: 09/24/2024, Expires: 11/22/2025NOM[facility] HealthcareComment on above:Expected: 09/24/2024, Expires: 11/22/2025Start: 09-24-2024 End: 15-54-7688Ffbprqu encounter procedureNOMS CWM FMComment on above:Arrived Start: 91-68-4135Mnbtitumzs ScreeningDepression ScreeningChildren's Hospital of Columbusca [facility] Start: 47-15-8317Jydkwgs ScreeningTobacco ScreeningChildren's Hospital of Columbusca [facility] SystemStart: 09-13-2024 End: 46-91-2667Emdhqym encounter txsoubpvr66/09/2025 11:30 AM EST Office Visit [facility] [address] [place] [address] Laura Mac [address] [id number] [facility]/Sleep MedicineStart: 02-22-4479Ecjfmzc Directive DiscussionAdvance Directive DiscussionCleveland ClinicStart: 57-03-6491Yqzvw BMI ScreeningAdult BMI ScreeningProNoland Hospital Birmingham Health SystemStart: 53-54-3409Pgvahcf ScreeningTobacco ScreeningProUniversity Hospitals [facility] Medical Centerca [facility] SystemStart: 07-05-2024 End: 29-14-8599Tnaiwvv encounter tebzdkbay24/31/2024 1:00 PM EDT Office Visit [facility] [address] [place] [address] Luiz Tadeo MD [address] [place] [address] [facility] FMStart: 06-19-2024 End: 29-97-2989Xgiwsjo encounter /15/2024 10:45 AM EDT Office Visit Vascular Surgery [address] [place], [place] [address] [place] [address] [place] [address] JANUARY THURNERVascular SurgeryComment on above:JANUARY THURNERStart: 05-30-2024 End: 18-76-4245Amvxklf encounter procedureNOMS CWM FMComment on above:Arrived Start: 05-28-2024 End: 94-35-0667DR Chest PA and LateralProMedica Work Phone: Comment on above:Expected: 05/28/2024, Expires: 05/28/2025Start: 40-45-9056Elkzns Wellness Visit (Medicare)Annual Wellness Visit (Medicare)[facility]Start: 05-23-2024 End: 71-60-0720ublwvujmka88/18/2024 8:30 AM EDT [facility] [address] [place] [address] [phone] [facility] Infant MonitorStart: 05-17-2024 End: 26-39-4533Unqikui encounter oagkgwduv44/12/2024 10:45 AM EDT Office Visit [facility] [address] [place] [address] Laura Mac, DO [address] [address] [facility]/Sleep MedicineStart: 05-09-2024 End: 96-77-6716Mutyfuc encounter qrcvhegja14/04/2024 9:45 AM EDT Consult [facility] [address] [place] [address] Melba Delgaod DO [address] [place] [address] [facility]S PULMStart: 62-91-8953Twuet-19 Vaccine ( season)Covid-19 Vaccine ()[facility]tart: 31-30-8542Ysnck-19 Vaccine ()Covid-19 Vaccine ()[facility]: 40-10-0458Cidypicyv vaccinationGreene Memorial Hospitaltart: 05-01-2024 End: 66-36-4650Opbcnkc encounter bdvssqwab66/27/2024 11:00 AM EDT Office Visit Cardiology [address] [id number] FpbsMima Carpio APRN.DIRECTOR BIOLOGY [address] [place] [address] DX:Chronic systolic HF (heart failure) (HCC) [I50.22]CardiologyComment on above:DX:Chronic systolic HF (heart failure) (HCC) [I50.22]Start: 04-27-2024 End: 39-60-0592Dmluwnv encounter sywvdvosm11/23/2024 9:30 AM EDT Appointment [facility] - Cardiovascular [address] [place] [address] [facility]ag[facility] Start: 03-30-2024 End: 62-75-7382Zyzqklu encounter exzsriogn24/26/2024 11:00 AM EDT Appointment Radiology [address] [place] [address] 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]RadiologyComment on above: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]Start: 03-21-2024 End: 97-38-2857Qdonlko encounter gzmsketnv08/17/2024 1:00 PM EDT Appointment [facility] [address] [place] [place] [address] Laura Mac, DO [address] [address] [facility] [place] ImagingStart: 03-12-2024 End: 17-23-6269GL Chest for screening WO contrastCT low dose lung screening (Annual) Imaging Routine Cigarette nicotine dependence, uncomplicated Expected: 03/12/2024 (Approximate), Expires: 11/09/2024[facility] Work Phone: Comment on above:Expected: 03/12/2024 (Approximate), Expires: 11/09/2024Start: 03-12-2024 End: 76-61-5326Gejgali encounter ghdfapgbf25/08/2024 11:30 AM EDT Appointment [facility] [address] [place] [address] Laura Mac, DO [address] [address] [facility] [place] ImagingStart: 02-09-2024 End: 41-57-3092Gsepanp encounter vvrcakaae76/06/2024 11:00 AM EDT Office Visit [facility] [address] [place] [address] Laura Mac, DO [address] [place] [address] [facility]/Sleep MedicineStart: 12-11-2023 End: 38-48-8560Lwrxuapwq function test Spirometry (Flow Volume Loop) pre/post short acting bronchodilatorPulmonary function test Spirometry (Flow Volume Loop) pre/post short acting bronchodilator PFT Routine Bronchiectasis Expected: 12/11/2023 (Approximate), Expires: 11/09/2024[facility] SystemComment on above:Expected: 12/11/2023 (Approximate), Expires: 11/09/2024Start: 11-21-2023 Covid-19 Vaccine ()Covid-19 Vaccine () [facility]: 11-10-2023 End: 12-60-2135Gbuebdy encounter blttiodkn97/07/2024 10:45 AM EST Office Visit [facility] [address] [place] [address] Laura Mac, [address] [place], [place] [address] [facility]/Sleep MedicineStart: 35-53-1112Dnraqlr Directive DiscussionAdvance Directive DiscussionGreene Memorial Hospitaltart: 17-40-5063Bxosclxeey Health Screening Behavioral Health ScreeningGreene Memorial Hospitaltart: 95-14-4727Bflxpqpozp AssessmentDepression AssessmentGreene Memorial Hospitaltart: 34-78-1903Vtstq-19 Vaccine ()Covid-19 Vaccine ()[facility]: 80-12-9874Czlhzjyqj vaccinationGreene Memorial Hospitaltart: 12-81-6352Xtmwy depression screening assessmentDEPRESSION SCREENINGGreene Memorial Hospitaltart: 01-16-2023 End: 76-79-2733HjftethybkxwcdguPZCP Cardiology Routine Chronic systolic HF (heart failure) (HCC) Expected: 01/16/2023, Expires: 10/19/2023[facility] Work Phone: Comment on above:Expected: 01/16/2023, Expires: 10/19/2023Start: 12-30-2022 End: 67-44-0983Jtvjplfglyxil metabolic 2000 panel - Serum or PlasmaTrumbull Regional Medical Center Work Phone: Comment on above:Expected: 12/30/2022, Expires: 03/01/2023Start: 12-30-2022 End: 52-50-8371Wsumkqkllof peptide.B prohormone N-Terminal [Mass/volume] in Serum or PlasmaTrumbull Regional Medical Center Work Phone: Comment on above:Expected: 12/30/2022, Expires: 03/01/2023Start: 12-30-2022 End: 98-83-3337Bqcuvj [Moles/volume] in Urine collected for unspecified duration [facility] Work Phone: Comment on above:Expected: 12/30/2022, Expires: 03/01/2023Start: 77-46-9047WGVVF-19 VACCINE (6 - Moderna series)COVID-19 VACCINE (6 - Moderna series)[facility] Hospitaltart: 58-05-6030Tdrmf depression screening assessmentDEPRESSION SCREENINGGreene Memorial Hospitaltart: 90-68-9089ZCAOXMH DIRECTIVE DISCUSSIONADVANCE DIRECTIVE DISCUSSIONGreene Memorial Hospitaltart: 41-50-5325EZKSMIPTGP ASSESSMENTDEPRESSION ASSESSMENTGreene Memorial Hospitaltart: 05-12-2022 End: 43-14-7120Nuscb metabolic 2000 panel - Serum or PlasmaBASIC METABOLIC PNL Lab Routine Chronic systolic (congestive) heart failure (HCC) Expected: 05/12/20 22, Expires: 07/12/2022[facility] Work Phone: Comment on above:Expected: 05/12/2022, Expires: 07/12/2022tart: 59-90-6783Pkuyohusp vaccinationINFLUENZA (#1)[place] [facility] Start: 05-04-2022 End: 53-39-9090Rtslftnhchxtr metabolic 2000 panel - Serum or PlasmaCOMP METABOLIC PANEL Lab Routine Chronic systolic heart failure (HCC) Expected: 05/04/2022, Expires: 07/04/2022[facility] Work Phone: Comment on above:Expected: 05/04/2022, Expires: 07/04/2022tart: 05-04-2022 End: 91-19-4845Qhsuwiauaoy peptide.B prohormone N-Terminal [Mass/volume] in Serum or PlasmaNT PRO BNP Lab Routine Chronic systolic heart failure (HCC) Expected: 05/04/2022, Expires: 07/04/2022[facility] Work Phone: Comment on above:Expected: 05/04/2022, Expires: 07/04/2022tart: 11-71-3867GZXVF-19 VACCINE (5 - Booster for Moderna series) COVID-19 VACCINE (5 - Booster for Moderna series)[facility]: 15-93-0322AmknlawlxxzUtqrcyxgt ClinicStart: 18-80-1259Cqhjisoza for malignant neoplasm of breastGreene Memorial Hospitaltart: 01-27-2022 End: 50-75-9931Cuzrmqgejqmbu metabolic 2000 panel - Serum or PlasmaCOMP METABOLIC PANEL Lab Routine Chronic systolic HF (heart failure) (HCC) Other cardiomyopathy (HCC) Expected: 01/27/2022, Expires: 03/29/2022[facility] Work Phone: Comment on above:Expected: 01/27/2022, Expires: 03/29/2022tart: 01-27-2022 End: 63-28-1222DZAGVPWAMYBWEU SCREEN, SERUMIMMUNOFIXATION SCREEN, SERUM Lab Routine Chronic systolic HF (heart failure) (HCC) Other cardiomyopathy (HCC) Expected: 01/27/2022, Expires: 03/29/2022[facility] Work Phone: Comment on above:Expected: 01/27/2022, Expires: 03/29/2022tart: 01-27-2022 End: 28-79-7474IYWES/SOUSA,FREE,SERKAPPA/SOUSA,FREE,SER Lab Routine Chronic systolic HF (heart failure) (HCC) Other cardiomyopathy (HCC) Expected: 01/27/2022, Expires: 03/29/2022[facility] Work Phone: Comment on above:Expected: 01/27/2022, Expires: 03/29/2022tart: 01-27-2022 End: 08-43-4035ERQTTMDNIO PROT UR W/INTERPMONOCLONAL PROT UR W/INTERP Lab Routine Chronic systolic HF (heart failure) (HCC) Other cardiomyopathy (HCC) Expected: 01/27/2022, Expires: 03/29/2022[facility] Work Phone: Comment on above:Expected: 01/27/2022, Expires: 03/29/2022tart: 01-27-2022 End: 91-78-4100Cewpummwumc peptide.B prohormone N-Terminal [Mass/volume] in Serum or PlasmaNT PRO BNP Lab Routine Chronic systolic HF (heart failure) (HCC) Other cardiomyopathy (HCC) Expected: 01/27/2022, Expires: 03/29/2022[facility] Work Phone: Comment on above:Expected: 01/27/2022, Expires: 03/29/2022tart: 01-27-2022 End: 54-69-1994Bilqjlh/Creatinine [Mass Ratio] in UrinePROTEIN CREATININE RATIO Lab Routine Chronic systolic HF (heart failure) (HCC) Other cardiomyopathy(HCC) Expected: 01/27/2022, Expires: 03/29/2022[facility] Work Phone: Comment on above:Expected: 01/27/2022, Expires: 03/29/2022tart: 01-13-6614Wqphqmmtf for malignant neoplasm of lungLung Cancer Screening &/or CounselingBon [facility] HospitalStart: 70-97-0291IQBVT-19 VACCINE (4 - Booster for Moderna series)COVID-19 VACCINE (4 - Booster for Moderna series)[facility] Hospitaltart: 09-69-4810QHDEUYA DIRECTIVE DISCUSSION ADVANCE DIRECTIVE DISCUSSIONGreene Memorial Hospitaltart: 27-28-9913TTYBXHLYCM ASSESSMENTDEPRESSION ASSESSMENTGreene Memorial Hospitaltart: 80-13-8800Kahdkdbca for malignant neoplasm of breastBreast cancer screenSelect Medical [facility] Clinic [facility], [facility] Work Phone: start: 55-00-2924Msaqbc Wellness Visit (AWV)Annual Wellness Visit (AWV)[employer] Phone: start: 01-23-2019Medicare Annual Wellness (AWV) Medicare Annual Wellness (AWV)[facility] CenterStart: 65-29-5508ENMW DENSITYBONE DENSITYGreene Memorial Hospitaltart: 95-16-1444Uwku Density ScreeningBone Density ScreeningGreene Memorial Hospitaltart: 42-34-4537Gbwr Risk ScreeningFall Risk Screening Count includes the [facility] Hospitaltart: 63-41-3120YEEYFOGMD AGE 65 AND OVER WITH 5YR LOOKBACK (#1)PNEUMOVAX AGE 65 AND OVER WITH 5YR LOOKBACK (#1)[facility] Start: 93-95-5030Yggdnhgib for osteoporosisBone Density ScreeningGreene Memorial Hospitaltart: 54-62-1853Uryvy panelBon [facility] HospitalStart: 10-76-3398DXQ Vaccine (1 - 1-dose 60+ series)RSV Vaccine (1 - 1-dose 60+ series)[facility] Hospitaltart: 80-14-2066Qyapvseot for osteoporosisDEXA (modify frequency per FRAX score)[employer] Phone: start: 11-85-1280Wmlqlknjzjrdxb of varicella zoster vaccineZoster (Shingles) Vaccine (1 of 2)Count includes the [facility] Hospitaltart: 46-05-8737Aglymvkky for malignant neoplasm of colonColon cancer screen colonoscopyOhiohealth [facility] Phone: start: 00-97-6717Lneprgje Vaccine (1 of 2)Shingles Vaccine (1 of 2)[facility]Start: 75-23-7264RCEIXKDK VACCINE (1 of 2)SHINGRIX VACCINE (1 of 2)[facility] Hospitaltart: 50-71-8621DNIOTYDXU (FIT-DNA) COLOGUARD (FIT-DNA)[facility]tart: 81-34-0488DbsqiuswzfnDBUUCPISRMN [facility]tart: 22-95-9713YERKHTTSSH CANCER SCREENINGCOLORECTAL CANCER SCREENINGGreene Memorial Hospitaltart: 09-13-8465DN COLONOGRAPHYCT COLONOGRAPHY [facility]tart: 48-16-4648ORTKS OCCULT BLOODFECAL OCCULT BLOODGreene Memorial Hospitaltart: 40-63-5746Dwirscqnz for malignant neoplasm of colonHighland District Hospital Start: 27-60-6720HRUWVCHNALITZMGVXBZOFFTJQDOlhjijsmd ClinicStart: 1971 Urine microalbumin profileGreene Memorial Hospitaltart: 17-76-0143YSDJTS PCP TEAM CHRONIC DISEASE VISITANNUAL PCP TEAM CHRONIC DISEASE VISITGreene Memorial Hospitaltart: 85-77-2351Ysqjyqi ScreeningAnxiety ScreeningGreene Memorial Hospitaltart: 1970 Depression ScreeningDepression ScreeningGreene Memorial Hospitaltart: 1970 HEPATITIS C SCREENINGHEPATITIS C SCREENINGGreene Memorial Hospitaltart: 1970 Hepatitis C screeningGreene Memorial Hospitaltart: 10-85-1606Jxpnwymuox Screen Depression ScreenNaval Medical Center PortsmouthStart: 56-54-1759Wnjcxxisfr Screening Depression ScreeningCount includes the [facility] Hospitaltart: 81-24-8335Rmssmikasprq Vaccine: 65+ (1 - PCV)Pneumococcal Vaccine: 65+ (1 - PCV)[facility]art: 11-98-0572ZLSHZFXKLOHZ: 65+ (1 - PCV)PNEUMOCOCCAL: 65+ (1 - PCV)[facility] Start: 05-71-9408Pjhjzjymv C screeningHepatitis C screenOhiohealth [facility]heastern [facility] Work Phone: start: 1952Medicare Annual Wellness Visit Medicare Annual Wellness VisitCount includes the [facility] Hospitaltart: 37-46-2732Jbywrujrq for malignant neoplasm of colonNOMS HealthcareStart: 21-05-6722Kwesone CounselingTobacco CounselingProDayton Children'S Hospital End: 94-80-0814OLH W Auto Differential panel - BloodCBC auto differential Lab Routine 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1 Occurrences starting 02/17/2024 until 02/16/2025[facility] Work Phone: Comment on above:1 Occurrences starting 02/17/2024 until 02/16/2025 End: 03-34-8090KQV W Auto Differential panel - BloodCBC auto differential Lab Routine Dyspnea on exertion Leg swelling 1 Occurrences starting 01/31/2025 until 01/31/2026[facility] SystemComment on above:1 Occurrences starting 01/31/2025 until 01/31/2026 End: 41-76-6279Bdwxgluggkrdi metabolic 1999 panel - Serum or PlasmaComprehensive metabolic panel Lab Routine 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1 Occurrences starting 02/17/2024 until 02/16/2025[facility] HospitalComment on above:1 Occurrences starting 02/17/2024 until 02/16/2025 End: 92-27-4413Liyzeqaypwbau metabolic 1999 panel - Serum or PlasmaComprehensive metabolic panel Lab Routine Dyspnea on exertion Leg swelling 1 Occurrences starting 01/31/2025 until 01/31/2026[facility] SystemComment on above:1 Occurrences starting 01/31/2025 until 01/31/2026 End: 48-28-8343VYR Abdominal vessels and Pelvis vessels W contrast IVCTA ABD/PEL W IVCON Radiology Routine 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 Occurrences starting 03/15/2024 until 04/14/2025[facility] Work Phone: Comment on above:1 Occurrences starting 03/15/2024 until 04/14/2025 End: 18-03-1830LluonrjevewjnaubFWSM Cardiology Routine Chronic systolic HF (heart failure) (HCC) 1 Occurrences starting 11/01/2023until 11/01/2024[facility] Work Phone: Comment on above:1 Occurrences starting 11/01/2023 until 11/01/2024 End: 09-85-6907JifykkzkuvbezcnsSHMR Cardiology Routine Chronic systolic (congestive) heart failure (HCC) 1 Occurrences starting 12/11/2024 until 12/11/2025levelunc health ClinicComment on above:1 Occurrences starting 12/11/2024 until 12/11/2025 End: 11-60-7212Gmrp O2 eval (desaturation screen)Home O2 eval (desaturation screen) Respiratory Care Routine Chronic obstructive pulmonary disease, u nspecified COPD type ([facility]-HCC) Bronchiectasis ([facility]-HCC) 1 Occurrences starting 05/17/2024 until 05/17/2025[facility] Work Phone: Comment on above:1 Occurrences starting 05/17/2024 until 05/17/2025 End: 83-49-6528Nxmlw resp/sputum culture inc gram stainLower resp/sputum culture inc gram stain Microbiology Routine Bronchiectasis with acute lower respiratory infection ([facility]) 1 Occurrences starting 03/05/2024 until 03/05/2025[facility] Work Phone: Comment on above:1 Occurrences starting 03/05/2024 until 03/05/2025 End: 63-58-5808Jizik respiratory cultureLower respiratory culture Microbiology Routine Bronchiectasis with acute lower respiratory infection ([facility]) 1 Occurrences starting 02/08/2024 until 02/07/2025[facility] Work Phone: Comment on above:1 Occurrences starting 02/08/2024 until 02/07/2025 End: 90-42-5573Etbrwczwoxm peptide B [Mass/volume] in BloodB-type natriuretic peptide Lab Routine Dyspnea on exertion Leg swelling 1 Occurrences starting 01/31/2025 until 01/31/2026[facility] Work Phone: Comment on above:1 Occurrences starting 01/31/2025 until 01/31/2026 End: 07-52-2469TY SPECT/CT CARDIAC AMYLOIDNM SPECT/CT CARDIAC AMYLOID Radiology Routine Chronic systolic HF (heart failure) ([facility]) Other cardiomyopathy ([facility]) 1 Occurrences starting 01/27/2022 until [facility] Work Phone: Comment on above:1 Occurrences starting 01/27/2022 until 02/26/2023 End: 77-43-0903CUN LEG ZAHIRA VAS LABPVR LEG ZAHIRA VAS LAB Vascular Lab Routine Peripheral arterial disease ([facility]) Chronic systolic HF (heart failure) (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 Occurrences starting 11/07/2023 until 11/06/2024[facility] Work Phone: Comment on above:1 Occurrences starting 11/07/2023 until 11/06/2024 End: 62-49-7490VX Visceral arteryUS VISCERAL VEIN COMPLETE VAS LAB Vascular Lab Routine 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 Occurrences starting 01/12/2024 until 01/11/2025 [facility] Work Phone: Comment on above:1 Occurrences starting 01/12/2024 until 01/11/2025 End: 58-58-0337CM Lumbar spine 3 ViewsXR LUMBAR GENERAL 3V AP/LAT/L5-S1 Radiology Routine Paresthesia DDD (degenerative disc disease), lumbar 1 Occurrences starting 05/30/2024 until 06/29/2025[facility] Work Phone: Comment on above:1 Occurrences starting 05/30/2024 until 06/29/2025[facility] Immunizations Immunization DateImmunizationNotesCare HotytcejMkvswkfk66-73-1203XXF, bivalent, protein subunit RSVpreF, diluent reconstituted, 0.5 mL, PFMarc Shwetha SMITH Work Phone: [facility] CenterLsseitytjx59-65-1036rmwohxvgm, injectable, quadrivalent, preservative Flash Tadeo MD Work Phone: noSaint [facility] East HospitalHmiizvurts35-98-3853jobrciidj virus vaccine, unspecified formulationYuki Car MD Work Phone: [facility] HospitalCqhobh98-43-2167bdilswfby, injectable, quadrivalent, preservative Flash Tadeo MD Work Phone: noSaint [facility]'s East HospitalUdodldarkz87-50-9879xxenavizg virus vaccine, unspecified formulationAlex Riggins MD Work Phone: [facility] HospitalWrinlw33-42-9458yfbddohls, injectable, quadrivalent, preservative freeLuiz Tadeo MD Work Phone: [facility] CenterBxmiywbusl91-07-5220OKOJJ-93, mRNA, LNP-S, PF, 100mcg/0.5mL DoseShanna Bubba DO Work Phone: [facility] HospitalQjskqh71-35-5668XCDSQ-35, mRNA, LNP- S, PF, 100mcg/0.5mL DoseShanna Bubba DO Work Phone: [facility] HospitalPhcakx29-89-5255Dyhtkzgvj, High-dose, QuadrivalentLuiz Tadeo MD Work Phone: [phone] [place], [place] [address]Jgvxnlsnte20-13-7103prodvpxga virus vaccine, unspecified formulationLuiz Tadeo MD Work Phone: [phone] [place], [place] [address]Ofsnibshrv54-85-2083jxlcaqpjn, high dose seasonal, preservative-freeLuiz Tadeo MD Work Phone: [phone] [place], [place] [address]Hlsvmybpvn32-89-7298Aunbszep trivalent influenza vaccine, adjuvanted, preservative freeLuiz Tadeo MD Work Phone: [phone] [place], [place] [address]Wawuahuebt94-10-0922usewkpeyw, high dose seasonal, preservative-freeLuiz Tadeo MD Work Phone: [phone] [place], [place] [address]Lkunrewowe25-33-5672enrawhobbhdz polysaccharide vaccine, 23 valPraveen Tadeo MD Work Phone: [phone] [place], [place] [address]Pagadwgmku80-01-1364hxnczypbapxx conjugate vaccine, 13 valPraveen Tadeo MD Work Phone: [phone] [place], [place] [address]Xfegbfxpqr58-70-6235byxnuac toxoid, reduced diphtheria toxoid, and acellular pertussis vaccine, adsorbedLuiz Tadeo MD Work Phone: [phone] [place], [place] [address]Omxnbrvysm64-39-9107cuuhxuohk virus vaccine, unspecified formulationLuiz Tadeo MD Work Phone: [phone] [place], [place] [address]Nurkbquxwe79-14-9741hhucwuyue, seasonal, injectableMarc Shwetha SMITH Work Phone: [facility] CenterOjicpwythr21-49-8061ciphwngvfxjg polysaccharide vaccine, 23 valentStc [facility] Work Phone: [phone]uwisr polysaccharide vaccine, 23 valentStc [facility] Work Phone: Payers DatePayer CategoryPayerPolicy [id number] Care Other (unspecified)[facility] Member Subscriber Plan / Payer (Effective 2017-Present) Name: Marcela Brewer Relation to Subscriber: Self Name: Marcela Brewer Payer ID: Not on file Group ID: Type: Not on file Address: [address] [place] [id number] 2017Medicare MEDICARE MEDICARE A AND B [id number] 2017-Present [phone] [address] [address] [place] [address] [id number] [id number] 2017Medicare 1.2.840.379388.1.13.159.2.7.3.573396.54963-29-0138Zsd[place]ak Health Insurance 1.2.840.217791.1.13.693.2.7.9.619410.480433.41619-76-6019VgjwqylHTLRQI OF CARLINE [facility] [employer] MEDICARE SUPPLEMENT [id number] 2017-Present [phone] [address] [place] [address] [id number] 1.2.840.742327.1.13.159.2.7.3.009123.55101-68-9160Pectnaa 1.2.840.215361.1.13.159.2.7.3.243321.678[id number] 1.2.840.226526.1.13.239.2.7.3.175855.315 [id number] 1.2.840.853771.1.13.239.2.7.3.804493.24810-90-5765Tnkclwr7000664037-46-6652 [id number] 2.16.840.1.155163.3.579.2.18363-36-8956Xaorihx2537209 2.840.1.381665.3.579.[id number] 2.840.1.828012.3.579.2.186040-34-8120Ticjrwa4225748 2.840.1.848244.3.579.2.038887-90-1306Mjtaoqg5409785 2.0.1.691909.3.579.2.633064-00-1621Xgvbylw3581874 2.16840.1.807060.3.579.2.646320-49-9144Qxyoeen3022689 2.16840.1.422924.3.579.2.916073-89-1766Kehjnyx87020110 2.16840.1.996011.3.579.2.08160-03-1219Ugyaogy59787301 2.16840.1.005043.3.579.2.09531-27-4363Oozqril79428823 2.16840.1.753179.3.579.2.87215-80-5183Gfbqtkn25331001 2.16.840.1.851244.3.579.2.33721-23-2841Eazalmy29012725 2.16840.1.665183.3.579.2.95335-44-4382Qtowofo643790990 2.16840.1.716101.3.579.2.174697-45-3499Taexzho679667039 2.16840.1.091319.3.579.2.940573-74-7019Ovcsklc799556651 2.840.1.000556.3.579.2.164824-54-8811Footcep71198159 2.840.1.663225.3.579.2.900955-96-5570Nsxuakt85097795 2.0.1.643342.3.579.2.183360-63-4236Jxuxlxc35978731 2.840.1.490709.3.579.2.179994-11-5776Fmfawpy88500552 2.0.1.201203.3.579.2.458253-49-8389Cbnukrz67882292 2..1.071018.3.579.2.599697-96-5687Tpfmllr90767029 2.840.1.435183.3.579.2.177121-22-3785Ekajfkr14226997 2.840.1.727936.3.579.2.488454-18-9123Raeamkj81442482 2.840.1.801835.3.579.2.78847-17-3374Waaawja23954332 2.16840.1.717349.3.579.2.72951-49-3780Aikbdqg57755223 2.16.840.1.019685.3.579.2.33364-69-6925Urepljs72392178 2.16.840.1.091424.3.579.2.58562-65-4372Wbzhrju80444780 2.16840.1.082119.3.579.2.05719-71-1662Zxnvdcn073184032 2.16840.1.811622.3.579.2.286156-81-1099Dripziq520098831 2.16840.1.957816.3.579.2.228453-84-0835Hmtbjue758576194 2.840.1.300996.3.579.2.382030-21-5053Qgwhyho70886142 2.0.1.459159.3.579.2.471368-96-7882Csppxdx53849579 2.840.1.886405.3.579.2.939323-08-3410Fclpbje34910696 2.0.1.344527.3.579.2.078205-04-7304Ayjstmk49545454 2..1.114558.3.579.2.305074-64-5880Knidxqy21953675 2.0.1.089597.3.579.2.413796-47-2406Oebwgey8924715 2.840.1.157012.3.579.2.035907-73-9801Ooxqwiz3786204 2.840.1.090924.3.579.2.099427-74-3610Ahsutqa7443448 2.840.1.670235.3.579.2.407309-06-6478Mftatir3993300 2.16840.1.396863.3.579.2.990304-09-5003Endzmzk9741830 2.16.840.1.071815.3.579.2.1259 Social History DateTypeDetailFacilityStart: 02-14-2021 End: 24-33-1851Psmoiex smoking status NHISCurrent every day smokerHighland District HospitalHistory of tobacco useCigarette SmokerSelect Medical Cleveland Clinic Rehabilitation Hospital, Edwin ShawStart: 09-17-2020 End: 89-23-9502Qxvcawtyww smoked current (pack per day) - ReportedGreene Memorial Hospitaltart: 02-14-2021 End: 96-57-6662Xpjylky use and exposureFormer userSelect Medical Cleveland Clinic Rehabilitation Hospital, Edwin ShawStart: 02-14-2021 End: 02-99-1647Eeukxqe intakeCurrent non-drinker of alcohol (finding)Network[employer] Phone: start: 78-65-4932Vev Assigned At BirthNot on [facility] Work Phone: start: 11-02-2021 End: 81-94-2914Ykntesn use and exposureSmokeless tobacco non-userGreene Memorial Hospitaltart: 11-02-2021 End: 20-65-6285Lybodmq intakeEx-drinker (finding)[facility] Hospitaltart: 11-02-2021 End: 85-98-8845Nrpqxfx Tyerhks69-74 cigaretts dailyGreene Memorial Hospitaltart: 01-70-1834Tcw Assigned At BirthFemaleCParkview Health Bryan Hospitaltart: 10-03-2021 End: 97-91-6904Kaouuwhm to SARS-CoV-2 (event)Not sureGreene Memorial Hospitaltart: 01-18-2022 End: 53-06-7641Pwhpwgas to SARS-CoV-2 (event)Unable to assessHighland District Hospital Start: 09-17-2020 End: 79-38-1987Yfewcds use panelGreene Memorial Hospitaltart: 20-73-3389Nroic Depression Screening Bvetsyhlpw7Xltqpofen ClinicStart: 30-56-0040Xqnuep identity Identifies as female gender (finding)[facility] Hospitaltart: 83-92-8136Abwxxe orientationHeterosexual (finding)[facility] HospitalHistory of tobacco usePassive smokerNOND HealthcareStart: 03-29-2024 End: 11-45-2531Psxzamzxc beverage intakeLifetime non-drinker (finding)[facility] HealthcareStart: 08-13-2024 End: 53-29-5076Duzbllm smoking statusHeavy tobacco smoker (finding)[facility] HospitalHow often to you have a drink containing alcohol?Monthly or lessProNoland Hospital Birmingham Viratech SystemHow many standard drinks containing alcohol do you have on a typical day?1 or 2PWillis-Knighton [facility] Viratech SystemHow often do you have 6 or more drinks on 1 occasion?NeverProMedica Fostoria Community Hospital SystemStart: 06-22-2021 End: 86-80-4959Bzupvvu CommentShe is in the quit now programProMedica Fostoria Community Hospital SystemStart: 10-15-2012 End: 16-35-4818SwqXrnlfr (finding)[facility] Vir[facility] SystemSexual Orientation [facility] Medical Equipment Procedure CodeEquipment CodeEquipment Original TextEquipment IdentifierDates Stent to left iliac vein Unknown 11/12/24 Unknown Left Common Iliac Artery/Vein FDAStart: 63-98-3571Yrbkn to left iliac vein Unknown 11/12/24 Unknown Left Common Iliac Artery/VeinFDAStart: 38-14-4743Awmxu to left iliac vein Unknown 11/12/24 Unknown Left Common Iliac Artery/VeinFDAStart: 11-12-2024 Goals DatePatient GoalDesired Activity/StatePersonal health goalPersonal health goal Comment on above: Evaluation of progress towards goal: get back to work Functional Status KfecKaolfqhoolSrrrrvChjvjzew95-59-0831Jbxjdfvtvk StatusN/[facility]03-10-2025Functional StatusN/[facility]02-24-2025 Functional StatusN/[facility]01-20-2025Patient Health Questionnaire 2 item (PHQ-2) [Reported][facility] CenterIkvunjebbi00-84-1004Jevwfeiazx StatusN/[facility]12-09-2024Functional StatusN/[facility]07-08-2024Patient Health Questionnaire 2 item (PHQ-2) [Reported][facility] CenterOjtgbwbrqh97-93-9348Ftlsqkj Health Questionnaire 2 item (PHQ-2) [Reported][facility] Clinical Notes 09-15-2021 to 07-08-2025 Note Date & MgmcWabcDallatmo47-10-9921 Miscellaneous Notes* Telephone Encounter - MASHA Cardenas - 07/08/2025 9:09 AM EST Server Manager called patient and left voicemail informing her that our office received the re-enrollment form for Malissa, com writer informed patient to stop in office sometime this week to complete her portion of the enrollment form, patient was informed that she will need to bring most recent tax return, W-2, last 2 pay stubs, 1099, SSI award letter, etc. documented in this encounterSheltering Arms Hospital11-03-2025 Telephone encounter Note* Telephone Encounter - MASHA Cardenas - 07/08/2025 9:09 AM EST Server Manager called patient and left voicemail informing her that our office received the re-enrollment form for Malissa, com writer informed patient to stop in office sometime this week to complete her portion of the enrollment form, patient was informed that she will need to bring most recent tax return, W-2, last 2 pay stubs, 1099, SSI award letter, etc. [facility]10-15-2025 Miscellaneous Notes* Telephone Encounter - Mary Valencia LPN - 06/19/2025 11:21 AM EDT Pt left a VM stating she needs an order for her POC to be picked up, can you please f/u? * Telephone Encounter - MASHA Cardenas - 06/19/2025 11:21 AM EDT Discontinue POC (only) order faxed to [facility]. documented in this encounterSheltering Arms Hospital10-15-2025 Telephone encounter Note* Telephone Encounter - Mary Valencia LPN - 06/19/2025 11:21 AM EDT Pt left a VM stating she needs an order for her POC to be picked up, can you please f/u? [facility] Telephone encounter Note* Telephone Encounter - MASHA Cardenas - 06/19/2025 11:21 AM EDT Discontinue POC (only) order faxed to [facility] [place]. [facility] History of Present illness Narrative* Marcella Jaime DPM - 06/18/2025 1:30 PM EDT Images from the original note were not included. Subjective Patient ID: Marcela Brewer is a 75 y.o. female who presents for Nail care (Marcela Brewer is a 75y.o. female who presents for Nail care.). HPI Chief complaint: Thickened, discolored and deformed toenails multiple digits. Insidious onset with gradual progressive deformity over multiple years. Problematic/symptomatic over the past several weeks or so; describing pressure discomfort with footwear; catching and snagging on clothing, bed sheets etc.. Denies bleeding or drainage. Reports persistent discoloration of the forefoot and digital areas, consistent with history of Raynaud's phenomena. Self care measures are difficult, ineffective and not practical; increasing risk exposure. Family members unable to provide effective care. Palliative care measures provide favorable transient symptom relief. Risk factors: Medical comorbidities. Type II diabetes. COPD/nasal O2 cannula dependent. Raynaud's phenomena. Polypharmacy. Chronic cigarette use. Mobility, flexibility and dexterity restraints. Toenail deformity. Digital and/or shoe trauma and related complications. Medications Current Outpatient Medications: albuterol HFA 90 mcg/act inhaler, Inhale 2 puffs every 6 (six) hours if needed for wheezing or shortness of breath, Disp: , Rfl: aspirin 81 MG EC tablet, Take 81 mg by mouth Daily, Disp: , Rfl: atorvastatin (Lipitor) 10 MG tablet, Take 1 tablet (10 mg) by mouth at bedtime, Disp: 90 tablet, Rfl: 3 azithromycin (Zithromax) 250 MG tablet, , Disp: , Rfl: aztreonam lysine (CAYSTON) 75 MG nebulizer solution, Take by nebulization Add 1 mL of sterile respiratory saline to openned vial, recap, swirl, then immediately add to nebulizer, Disp: , Rfl: Luggtaw-Jucodqvmcba-Jasmvubjkb (Breztri Aerosphere) 160-9-4.8 MCG/ACT aerosol, Inhale 2 puffs in the morning and 2 puffs in the evening., Disp: , Rfl: Calcium Carb-Cholecalciferol (Calcium 1000 + D) 1000-20 MG-MCG tablet, Take 1 tablet by mouth in the morning., Disp: , Rfl: empagliflozin (Jardiance) 10 MG, Take 1 tablet by mouth in the morning., Disp: , Rfl: esomeprazole (NexIUM) [address] capsule, Take 1 capsule (40 mg) by mouth in the morning and 1 capsule (40 mg) before bedtime., Disp: 180 capsule, Rfl: 3 FLUoxetine (PROzac) 20 MG capsule, Take 1 capsule (20 mg) by mouth Daily, Disp: 30 capsule, Rfl: 3 fluticasone (Flonase) 50 MCG/ACT nasal spray, Administer 2 sprays into each nostril Daily, Disp: 16g, Rfl: 5 guaiFENesin (Mucinex) 600 MG 12 hr tablet, Take 1 tablet by mouth in the morning and 1 tablet in the evening., Disp: , Rfl: ipratropium (Atrovent) 0.02 % nebulizer solution, Take 3 mL by nebulization in the morning and 3 mLat noon and 3 mL in the evening and 3 mL before bedtime., Disp: , Rfl: lamoTRIgine (LaMICtal) 25 MG tablet, TAKE 2 TABLETS(50 MG) BY MOUTH AT BEDTIME, Disp: 60 tablet, Rfl: 5 loratadine-pseudoephedrine ER (Claritin-D 24-hour) 10-240 MG 24 hr tablet, Take 1 tablet by mouth in the morning., Disp: , Rfl: LORazepam (Ativan) 1 MG tablet, Take 1 tablet (1 mg) by mouth in the morning and 1 tablet (1 mg) atnoon and 1 tablet (1 mg) in the evening and 1 tablet (1 mg) before bedtime., Disp: 120 tablet, Rfl:1 metoprolol succinate XL (Toprol-XL) 50 MG 24 hr tablet, Take 1 tablet by mouth in the morning and 1tablet before bedtime., Disp: , Rfl: predniSONE (Deltasone) 10 MG tablet, Take 0.5 tablets (5 mg) by mouth Daily, Disp: , Rfl: Roflumilast 500 MCG tablet, Take 1 tablet by mouth in the morning., Disp: , Rfl: rOPINIRole (Requip) 0.5 MG tablet, TAKE 1 TABLET(0.5 MG) BY MOUTH AT BEDTIME, Disp: 90 tablet, Rfl:3 sacubitril-valsartan (Entresto) 49-51 MG tablet, every 12 (twelve) hours, Disp: , Rfl: sodium chloride 0.9 % nebulizer solution, Take 3 mL by nebulization if needed for wheezing, Disp: ,Rfl: Allergies Pantoprazole, Cephalexin, Chlophedianol-pseudoephedrine, Metaxalone, Metoclopramide, Montelukast, Sertraline, Ciprofloxacin, Erythromycin, and Levofloxacin Past Surgical History Past Surgical History: Procedure Laterality Date APPENDECTOMY BREAST SURGERY BRONCHOSCOPY 2017 also 2018 CARDIAC CATHETERIZATION CARDIAC SURGERY 2014 Cardiac Ablation CATARACT EXTRACTION, BILATERAL CT ANGIOGRAM ABDOMEN PELVIS 03/30/2024 CT ANGIOGRAM ABDOMEN PELVIS 03/30/2024 CT ANGIOGRAM HEART CORONARY 10/28/2019 CT ANGIOGRAM TAVR 10/28/2019 HYSTERECTOMY ILIAC ARTERY STENT 11/12/2024 TUBAL LIGATION Family History Family History Problem Relation Name Age of Onset Other (Other) Mother Varicose Veins Diabetes Father Hypertension Father Heart disease Father Hypertension Brother Heart disease Brother Objective General assessment: Alert and oriented. Pleasant disposition. Nasal O2 cannula in place. Accompanied by her spouse, Zafar V[facility]: DP 2/4 bilateral. PT 1/4 bilateral. CFT fairly brisk all digits. Discoloration of the digital and forefoot structures consistent with acrocyanosis. Gradient temperature: Warm-cool bilateral. Unremarkable for ankle edema. Neurologic: Tactile and light touch sensation intact. Dermatologic: Skin turgor is fair. Digital hair growth is absent. Web space areas are clean, dry, non-inflamed. Unremarkable for eczema or dermatitis. Toenail pathology: All digits: None are spared: Toenail dystrophy, hypertrophy, thickening, elongation, discoloration, crumbly texture, mild clubbing, subtotal detachment, periungual hyperkeratosis, without drainage. Bilateral great toes: Pincer toenail deformity. The margins are incurvated, keratotic, tender, non-inflamed, without drainage. Total with debris: Multiple digits. Orthopedic: Range of motion: Functional ankle, subtalar and 1st MTP joint range of motion. Lesion pattern: No forefoot or digital discrete keratotic lesions are noted. Radiology: Assessment/Plan Symptomatic onychodystrophy/mycosis multiple digits. Raynaud's phenomena (Q8). COPD. Chronic cigarette use. Plan: Patient remains well satisfied with a conservative and palliative care approach. Expresses no interest in oral terbinafine therapy (polypharmacy); nor is it recommended. May continue topical care measures: Use of vinegar and/or Listerine as directed; advised as to limited efficacy but may aid and sanitary measures. Recommend Amlactin lotion daily. Follow up: 3-4 months recommended. Procedure: Toenail debridement: Aseptic technique: Hand and power instrumentation: Onychodebridement in length and thickness, with curettage of any cryptotic margins, all periungual debris; providingeffective symptom and pressure relief; reducing shoe and digital trauma. This note was created with the assistance of a speech recognition program. While intending to generate a timely document that accurately reflects the content of the visit, no guarantee can be provided that every grammatical or spelling mistake has been or will be identified or corrected. Thank you for your understanding. Marcella Jaime DPM documented in this encounterResearch Psychiatric [id number] Miscellaneous Notes* Telephone Encounter - MASHA Cardenas - 06/04/2025 3:29 PM EDT Oxygen therapy order with supportive documentation faxed to [facility]. [facility] Telephone encounter Note* Telephone Encounter - MASHA Cardenas - 06/04/2025 3:29 PM EDT Oxygen therapy order with supportive documentation faxed to [facility] History of Present illness Narrative* Laura Mac, DO - 05/30/2025 3:15 PM EDT [facility] Pulmonary [facility] Sleep Progress Note Patient - Marcela Brewer Age - 75 y.o. 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 Intolerant of nebulized Tobramycin -PICC and IV Cefepime x 10 days Sep 2023 -pick and IV Zosyn times 20 days February 2024 5. History of cardiomyopathy, improved. Follows at [facility] with last EF 50% (improved qdtz00-82%) Chronic use of systemic steroids History of Mycobacterium szulgai s/p treatment with ID Tobacco use GERD Physical deconditioning. Anxiety disorder. PLAN Continue pulmonary toilet with vest, flutter valve, hypertonic saline aerosols Rx provided for oxygen therapy with continuous flow tanks Will treat with doxycycline 100 mg b.i.d. times 14 days Remains on chronic prednisone 10 mg daily and has previously felt that she is unable to wean after attempts Continue this cycle of nebulized [place] Continue Breztri BID with spacer and aerosols PRN throughout the day. If not improving with doxycycline may need to transition to IV abx regimen. Would need PICC like and plan on course of cefepime outpatient x 10 days. Discussed that her lungs are expected to continue to decline over time given her diagnoses. She remains an active smoker despite discussions and attempts to quit. Not candidate for transplantevalaution Will need repeat sputum for AFB and fungal next collection. All questions answered. Reminded to schedule LDSCT which is overdue and was expected in April. Order re-printed RTC in 3 months. SUBJECTIVE Marcela presents with her for follow-up of her complicated respiratory history. She reportsoverall feeling more poorly in the last month or so. She is on day 4 of her [employer] cycle. She has been coughing up clear to brownish yellow phlegm and increased mucus production. She has also not felt that she is getting enough oxygen with her portable oxygen concentrator and believes that she needs to transitioned to rolling tanks with continuous flow as the pulse dose is not working for her. She reach out to her medical supply company today to see if this can be done. She did have a recent visit at [facility] for Cardiology. Plan was for repeat echo in [place]. Her weight has been up and down and flu ctuating. She continues to use her vest therapy along with hypertonic saline aerosols twice daily for mucus clearance. She also has flutter valve. VITALS BP 166/73 Pulse 89 Ht 154.9 cm (5' 1 ) Wt 47 kg (103 lb 11.2 oz) LMP (LMP Unknown) SpO2 91% Comment: Arrived on 4Lnc of O2 BMI 19.59 kg/m Exam General: Alert, oriented, no acute distress, nontoxic, thin HEENT: Moist mucosal membranes, no oral lesions or oral thrush, trachea midline Chest: Diminished throughout. Increased AP diameter. CV: Regular rate regular rhythm Extremities: No edema, erythema, distal cyanosis, clubbing Integumentary: Warm and dry. No rash or lesion Neuro: No lateralizing deficits. No tremors Meds Medications Reviewed. Radiology EXAM: XR CHEST 2 VWS 02/02/25 CLINICAL INFORMATION: Dyspnea on exertion; Leg swelling. COMPARISON: 05/28/2024 FINDINGS: Again seen are changes of chronic severe COPD with chronic left upper lobe scarring. Additional chronic scarring in both lungs is also noted. There is no evidence for superimposed acute cardiopulmonary disease. There are no focal consolidations. There is no pulmonary edema. Heart size is within normal limits. IMPRESSION: 1. No acute cardiopulmonary disease. Dr. Laura Mac DO. [facility] Office: [phone] documented in this encounterSheltering [facility]08-29-[facility] SUBJECTIVE Reason for Visit: establish care HPI: Marcela Brewer is a 75 y.o. 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 Previously seen [facility] cardiology group but would like to establish care closer to home. Recent left iliac stent (Gayle Luis) - left leg swelling improved. Patient increased oxygen to 3L (previously 2L). Denies chest pain and palpitations. Patient has dyspnea on exertion likely r/t COPD. Medical History: Medical History[1] Surgical History: Surgical History[2] Problem List: Problem List[3] Family History: Family History[4] Social History: Social History Socioeconomic History Marital status: Spouse name: Not on file Number of children: Not on file Years of education: Not on file Highest education level: Not on file Occupational History Not on file Tobacco Use Smoking status: Every Day Types: Cigarettes Smokeless tobacco: Not on file Substance and Sexual Activity Alcohol use: Not on file Drug use: Not on file Sexual activity: Not on file Other Topics Concern Not on file Social History Narrative Not on file Social Drivers of Health Financial Resource Strain: Not on file Food Insecurity: No Food Insecurity (09/22/2023) [facility] Hunger Screening Within the past 12 months we worried whether our food would run out before we got money to buy more.: Never True Within the past 12 months the food we bought just didn't last and we didn't have money to get more.: Never True Transportation Needs: Not on file Physical Activity: Not on file Stress: Not on file Social Connections: Not on file Intimate Partner Violence: Not on file Housing Stability: Not on file Review of Systems: Review of Systems Constitutional: Negative for malaise/fatigue. Cardiovascular: Positive for dyspnea on exertion. Negative for chest pain, leg swelling and palpitations. Respiratory: Positive for shortness of breath. Neurological: Negative for dizziness. OBJECTIVE Visit Vitals Visit Vitals BP 134/64 (BP Location: Right arm, Patient Position: Sitting) Pulse 71 PHYSICAL EXAM Physical Exam Vitals reviewed. Constitutional: General: She is not in acute distress. Appearance: Normal appearance. Cardiovascular: Rate and Rhythm: Normal rate and regular rhythm. Pulses: Normal pulses. Radial pulses are 2+ on the right side and 2+ on the left side. Posterior tibial pulses are 2+ on the right side and 2+ on the left side. Heart sounds: Normal heart sounds. No murmur heard. No friction rub. No gallop. Pulmonary: Effort: Pulmonary effort is normal. No respiratory distress. Breath sounds: Normal breath sounds. Abdominal: Palpations: Abdomen is soft. Musculoskeletal: General: Normal range of motion. Cervical back: Normal range of motion and neck supple. Right lower le+ Edema present. Left lower le+ Edema present. Skin: General: Skin is warm and dry. Capillary Refill: Capillary refill takes less than 2 seconds. Neurological: General: No focal deficit present. Mental Status: She is alert. Allergies: Allergies[5] Medications: Medications Ordered Prior to Encounter[6] Recent Labs: Lipid panel 10/12/2024 TC 188 TG 61 HDL 74 VLDL 12 LDL 102 CMP 02/01/2025 NA 132 K 3.7 CREAT 0.47 GLUCOSE 189 BUN 11 AST 20 ALT 22 BNP 127 Cardiovascular Diagnostic Studies: ECG 04/21/2024 Complete echocardiogram 04/27/2024 Narrative Left Ventricle: Left ventricle appears normal in size. Systolic function is low normal to mildly decreased with an ejection fraction of 50-55%. See wall score diagram for wall motion abnormalities. Right Ventricle: Systolic function is mildly reduced. Abnormal tricuspid annular plane systolic excursion. Aortic Valve: The aortic valve is trileaflet. Mitral Valve: Mitral valve structure is normal. The leaflets are mildly thickened. There is mild posterior annular calcification. There is ldpmw-za-timm regurgitation with a centrally directed jet. There is no evidence of mitral valve stenosis. Tricuspid Valve: Tricuspid valve appears to be normal. Limited echocardiogram 09/18/2021 Narrative Left Ventricle: Systolic function is severely decreased with an ejection fraction of 10-15%. Left Ventricle Left ventricle is dilated. Wall thickness is normal. Systolic function is severely decreased with an ejection fraction of 10-15%. See wall score diagram for wall motion abnormalities. There is systolic flattening of the interventricular septum consistent with right ventricle pressure overload. IVC/SVC The right atrial pressure is estimated at 3 mmHg. IVC appears normal. There is normal collapse with deep inspiration. Mitral Valve The leaflets are mildly thickened. There (more content not included)... [facility]08[facility] NotePatient was seen and evaluated in junction with the nurse practitioner. 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 Cramer. Patient needs a tube but [facility] due to pulmonology issues. He recommends ENT at [facility]. [facility] Please ask patient where she prefers. Research Psychiatric [id number] Miscellaneous Notes* Telephone Encounter - Luiz Tadeo MD - 04/08/2025 9:09 AM EDT Received message from Dr. Cramer. Patient needs a tube but anesthesia at [facility] will notclear due to pulmonology issues. He recommends ENT at [facility]. Can refer there or to [facility] since [facility] Please ask patient where she prefers. documented in this encounterResearch Psychiatric [id number] History of Present illness Narrative* Luiz Tadeo MD - 03/26/2025 1:54 PM EDTAssociated Problem(s): Restless legs syndrome (RLS) Recent symptoms and start requip. * Luiz Tadeo MD - 03/26/2025 1:54 PM EDTAssociated Problem(s): Major depressive disorder, recurrent episode, moderate (HCC) Symptoms tolerable with medication. * Luiz Tadeo MD - 03/26/2025 1:54 PM EDTAssociated Problem(s): 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) Edema stable and continue medication. Refer to closer cardiology. * Luiz Tadeo MD - 03/26/2025 1:53 PM EDTAssociated Problem(s): LUCERO (generalized anxiety disorder) Symptoms tolerable with medication. Use ativan PRN. * Luiz Tadeo MD - 03/26/2025 1:53 PM EDTAssociated Problem(s): Chronic respiratory failure with hypoxia (HCC) Follow with specialists. * Luiz Tadeo MD - 03/26/2025 1:52 PM EDTAssociated Problem(s): Bronchiectasis (HCC) Symptoms stable and follow with pulmonology. * Luiz Tadeo MD - 03/26/2025 1:15 PM EDT Images from the original note were not included. Subjective Patient ID: Marcela Brewer is a 75 y.o. female who presents for Follow-up (6m f/up/Cologuard ). Follow up depression, anxiety, CHF, and bronchiectasis. Patient stable today. Mood controlled with medication. Not as down or sad and feels happier. Interacting well with others. Anxiety stable. Not as stressed out or overwhelmed. Not as nervous or worry as much. Not as crews or irritable. Still occasional anxiety attacks. Using ativan PRN and helps when needed. CHF stable. Edema controlled with medication. Mild swelling at end of day and if on feet a lot. Edema improved in am and with elevation. Requests closer bottom cementer. Breathing stable. Continues to have SOB with exertion. Occasional cough and remains on oxygen. Following with pulmonology. C/o RLS. complains legs shake and keep moving at night. Often will wake her up. Never on medication for it. Review of Systems Respiratory: Negative for cough, shortness of breath and wheezing. Cardiovascular: Negative for chest pain and palpitations. Gastrointestinal: Negative for abdominal pain, diarrhea, nausea and vomiting. Genitourinary: Negative for dysuria. Objective Physical Exam Constitutional: General: She is not in acute distress. Appearance: Normal appearance. HENT: Head: Normocephalic. Right Ear: Tympanic membrane normal. Left Ear: Tympanic membrane normal. Eyes: Extraocular Movements: Extraocular movements intact. Pupils: Pupils are equal, round, and reactive to light. Cardiovascular: Rate and Rhythm: Normal rate and regular rhythm. Heart sounds: No murmur heard. No friction rub. No gallop. Pulmonary: Effort: Pulmonary effort is normal. Breath sounds: Normal breath sounds. No wheezing, rhonchi or rales. Abdominal: General: Bowel sounds are normal. There is no distension. Palpations: Abdomen is soft. Tenderness: There is no abdominal tenderness. There is no guarding or rebound. Musculoskeletal: Cervical back: Neck supple. Right lower leg: No edema. Left lower leg: No edema. Neurological: Mental Status: She is alert. Assessment/Plan Problem List Items Addressed This Visit Bronchiectasis (HCC) Symptoms stable and follow with pulmonology. Chronic respiratory failure with hypoxia (HCC) Follow with specialists. 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) Edema stable and continue medication. Refer to closer cardiology. Relevant Orders Ambulatory referral to Cardiology LUCERO (generalized anxiety disorder) Symptoms tolerable with medication. Use ativan PRN. Major depressive disorder, recurrent episode, moderate (HCC) - Primary Symptoms tolerable with medication. Restless legs syndrome (RLS) Recent symptoms and start requip. Relevant Medications rOPINIRole (Requip) 0.5 MG tablet Other Visit Diagnoses Colon cancer screening Relevant Orders Cologuard colon cancer screening documented in this [facility]07-18-2025 Miscellaneous Notes* Telephone Encounter - Roly Cramer MD - 03/22/2025 2:53 PM EDT We received letter from physician practice coordinator 03/13. OK to schedule surgery, but pt should have an anesthesiaconsult. Make sure to send the pulmonology letter with the packet * Telephone Encounter - Yuli Cramer - 03/22/2025 2:46 PM EDT Pt was here 03/06/25/was advised she was going to have a tube inserted and needed cardio clearance.Pt has not heard anything from anyone and would like the status of this. documented in this encounterResearch Psychiatric [id number] Telephone encounter Note* Telephone Encounter - Roly Cramer MD - 03/22/2025 2:53 PM EDT We received letter from physician practice coordinator 03/13. OK to schedule surgery, but pt should have an anesthesiaconsult. Make sure to send the pulmonology letter with the packet [facility] Psychiatric [id number] Telephone encounter Note* Telephone Encounter - Yuli Cramer - 03/22/2025 2:46 PM EDT Pt was here 03/06/25/was advised she was going to have a tube inserted and needed cardio clearance.Pt has not heard anything from anyone and would like the status of this. [facility] Psychiatric [id number] History of Present illness Narrative* Roly Cramer MD - 03/06/2025 1:00 PM EDT Subjective Patient ID: Marcela Brewer is a 74 y.o. female who presents for Ear Problem (Follow up audio 02/27/25) Audio shows RT mixed hearing loss with a 30-40dB ABG. Pt on O2 NC due to COPD. Still smoking. Review of Systems All other systems reviewed and are negative. Family History Problem Relation Name Age of Onset Other (Other) Mother Varicose Veins Diabetes Father Hypertension Father Heart disease Father Hypertension Brother Heart disease Brother Active Ambulatory Problems Diagnosis Date Noted Venous insufficiency 12/28/2023 Acrocyanosis 12/28/2023 Edema of both legs 12/28/2023 Age-related osteoporosis without current pathological fracture 09/24/2023 Bronchiectasis ([facility]) 11/24/2017 Chronic respiratory failure with hypoxia ([facility]) 11/10/2016 Essential hypertension 09/28/2012 GERD (gastroesophageal reflux disease) 09/28/2012 Nonischemic cardiomyopathy (HCC) 06/02/2021 Peripheral vascular disease 12/28/2023 Bilateral primary osteoarthritis of hip 12/28/2023 Heart failure with improved ejection fraction (HFimpEF) ([facility]) 12/28/2023 DDD (degenerative disc disease), lumbar 12/28/2023 LUCERO (generalized anxiety disorder) 12/28/2023 Dyslipidemia 12/28/2023 Visual disturbance 01/17/2024 Chronic respiratory failure with hypercapnia (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) 03/05/2025 Chronic systolic heart failure ([facility]) 03/05/2025 Current smoker 03/05/2025 Hypercholesterolemia 03/05/2025 Other chronic pain 03/05/2025 Raynaud's phenomenon without gangrene 03/05/2025 Seasonal allergies 03/05/2025 Severe chronic obstructive pulmonary disease (HCC) 03/05/2025 Resolved Ambulatory Problems Diagnosis Date Noted Acute suppurative otitis media 01/17/2024 Impacted cerumen of right ear 01/17/2024 Pneumonia due to Pseudomonas aeruginosa ([facility]) 02/14/2024 Past Medical History: Diagnosis Date At low risk for fall Benign essential hypertension Bronchiectasis without complication ([facility]) Chronic hypoxemic respiratory failure ([facility]) Encounter for long-term (current) use of medications GERD without esophagitis Hyponatremia Osteoporosis, postmenopausal Varicose veins of bilateral lower extremities with pain Past Surgical History: Procedure Laterality Date APPENDECTOMY BREAST SURGERY BRONCHOSCOPY 2017 also 2018 CARDIAC CATHETERIZATION CARDIAC SURGERY 2014 Cardiac Ablation CATARACT EXTRACTION, BILATERAL CT ANGIOGRAM ABDOMEN PELVIS 03/30/2024 CT ANGIOGRAM ABDOMEN PELVIS 03/30/2024 CT ANGIOGRAM HEART CORONARY 10/28/2019 CT ANGIOGRAM TAVR 10/28/2019 HYSTERECTOMY ILIAC ARTERY STENT 11/12/2024 TUBAL LIGATION Allergies Allergen Reactions Pantoprazole GI intolerance and Unknown Cephalexin Hives Rash. Trouble breathing. Can tolerate 250mg's but not 500mg's Spoke with RN confirmed with pt: Went to ER; pt told not to take keflex again Rash. Trouble breathing. Can tolerate 250mg's but not 500mg's Spoke with RN confirmed with pt: Went to ER; pt told not to take keflex again Chlophedianol-Pseudoephedrine Metaxalone Swelling Metoclopramide Swelling Montelukast Swelling and Wheezing Sertraline Swelling Ciprofloxacin Hives and Rash Erythromycin GI intolerance, Nausea And Vomiting and Nausea Only Levofloxacin Rash and Swelling Tongue swelling Current Outpatient Medications on File Prior to Visit Medication Sig Dispense Refill albuterol HFA 90 mcg/act inhaler Inhale 2 puffs every 6 (six) hours if needed for wheezing or shortness of breath aspirin 325 MG tablet Take 325 mg by mouth Daily atorvastatin (Lipitor) 10 MG tablet Take 1 tablet (10 mg) by mouth at bedtime 90 tablet 3 azithromycin (Zithromax) 250 MG tablet aztreonam lysine (CAYSTON) 75 MG nebulizer solution Take by nebulization Add 1 mL of sterile respiratory saline to openned vial, recap, swirl, then immediately add to nebulizer Juuuwus-Sbyaijqptkb-Vtcmxiamuj (Breztri Aerosphere) 160-9-4.8 MCG/ACT aerosol Inhale 2 puffs in themorning and 2 puffs in the evening. Calcium Carb-Cholecalciferol (Calcium 1000 + D) 1000-20 MG-MCG tablet Take 1 tablet by mouth in themorning. empagliflozin (Jardiance) 10 MG Take 1 tablet by mouth in the morning. esomeprazole (NexIUM) [address] capsule Take 1 capsule (40 mg) by mouth in the morning and 1 capsule(40 mg) before bedtime. 180 capsule 3 FLUoxetine (PROzac) 20 MG capsule Take 1 capsule (20 mg) by mouth Daily 30 capsule 3 fluticasone (Flonase) 50 MCG/ACT nasal spray Administer 2 sprays into each nostril Daily 16 g 5 guaiFENesin (Mucinex) 600 MG 12 hr tablet Take 1 tablet by mouth in the morning and 1 tablet in theevening. ipratropium (Atrovent) 0.02 % nebulizer solution Take 3 mL by nebulization in the morning and 3 mL at noon and 3 mL in the evening and 3 mL before bedtime. lamoTRIgine (LaMICtal) 25 MG tablet TAKE 2 TABLETS(50 MG) BY MOUTH AT BEDTIME 60 tablet 5 levalbuterol (Xopenex) 1.25 MG/3ML nebulizer solution loratadine-pseudoephedrine ER (Claritin-D 24-hour) 10-240 MG 24 hr tablet Take 1 tablet by mouth inthe morning. LORazepam (Ativan) 1 MG tablet Take 1 tablet (1 mg) by mouth in the morning and 1 tablet (1 mg) at noon and 1 tablet (1 mg) in the evening and 1 tablet (1 mg) before bedtime. 120 tablet 1 metoprolol succinate XL (Toprol-XL) 50 MG 24 hr tablet Take 1 tablet by mouth in the morning and 1 tablet before bedtime. predniSONE (Deltasone) 10 MG tablet Take 0.5 tablets (5 mg) by mouth Daily Roflumilast 500 MCG tablet Take 1 tablet by mouth in the morning. sacubitril-valsartan (Entresto) 49-51 MG tablet every 12 (twelve) hours sodium chloride 0.9 % nebulizer solution Take 3 mL by nebulization if needed for wheezing No current facility-administered medications on file prior to visit. Objective Last Recorded Vitals Vitals: 03/06/25 1307 BP: 153/69 Pulse: 78 ENT Physical Exam Constitutional Appearance: patient appears well-developed, well-nourished and well-groomed, Communication/Voice: communication appropriate for developmental age; vocal quality normal; Ear Ear Canals: right ear canal normal; Ear comments: RT serous effusion Respiratory Inspection: breathing unlabored; normal breathing rate; Auscultation: breath sounds are clear; Cardiovascular Inspection: extremities are warm and well perfused; no peripheral edema present; Auscultation: regular rate and rhythm; Assessment/Plan Diagnoses and all orders for this visit: Mixed conductive and sensorineural hearing loss of right ear with restricted hearing of left ear OME (otitis media with effusion), right Chronic dysfunction of right eustachian tube Pulmonary emphysema, unspecified emphysema type (HCC) OME persists in spite of aggressive medical management. Proceed with RT t-tube and nasal endoscopy to R/O [employer] path. Risks, including possible failure of tube to extrude, TM perf and otorrhea d/w pt who expressed understanding. Pt needs preop pulmonology clearance documented in this encounterResearch Psychiatric [id number] History of Present illness Narrative* Yuki Bey, [facility] - 02/27/2025 1:00 PM EDT History: Pt saw Dr Cramer in November for Right OME. Pt states she still cannot hear well. She does hear all ofthe noises in her throat. She also reports periodic tinnitus both ears. She denies otalgia. Historyis negative for excessive noise exposure. Otoscopic Exam: Ear canal clear and TM intact AU Pure Tone Audiometry Pt has very loud portable oxygen she had to wear during testing Right Ear: Mild sloping to profound mixed hearing loss Left Ear: Mild hearing loss from 250 Hz - 500 Hz rising to normal hearing from 1K Hz - 3K Hz. Mild to severe hearing loss above 3K Hz. Unable to mask bone conduction Speech Audiometry Right SRT = 55 dB and word discrimination score at 85 dBHL (masked) = 100% Left SRT = 30 dB and word discrimination score at 55 dBHL = 100% Tympanometry Right Ear: Type B tympanogram Left Ear: Type A tympanogram documented in this encounterResearch Psychiatric [id number] History of Present illness Narrative* Marcella Jaime, [facility] - 02/13/2025 1:30 PM EDT Images from the original note were not included. Subjective Patient ID: Marcela Brewer is a 74 y.o. female who presents for Nail care (Marcela Brewer is a 74 y.o. female who presents for Nail care.). HPI Chief complaint: Thickened, discolored and deformed toenails multiple digits. Insidious onset with gradual progressive deformity over multiple years. Problematic/symptomatic over the past several weeks or so; describing pressure discomfort with footwear; catching and snagging on clothing, bed sheets etc.. Denies bleeding or drainage. Reports persistent discoloration of the forefoot and digital areas, consistent with history of Raynaud's phenomena. Self care measures are difficult, ineffective and not practical; increasing risk exposure. Family members unable to provide effective care. There has been no specific treatment to date. Risk factors: Medical comorbidities. Type II diabetes. COPD/nasal O2 cannula dependent. Raynaud's phenomena. Polypharmacy. Chronic cigarette use. Mobility, flexibility and dexterity restraints. Toenail deformity. Digital and/or shoe trauma and related complications. Medications Current Outpatient Medications: albuterol HFA 90 mcg/act inhaler, Inhale 2 puffs every 6 (six) hours if needed for wheezing or shortness of breath, Disp: , Rfl: aspirin 325 MG tablet, Take 325 mg by mouth Daily, Disp: , Rfl: atorvastatin (Lipitor) 10 MG tablet, Take 1 tablet (10 mg) by mouth at bedtime, Disp: 90 tablet, Rfl: 3 azithromycin (Zithromax) 250 MG tablet, , Disp: , Rfl: aztreonam lysine (CAYSTON) 75 MG nebulizer solution, Take by nebulization Add 1 mL of sterile respiratory saline to openned vial, recap, swirl, then immediately add to nebulizer, Disp: , Rfl: Qllndjk-Thqudpblciy-Fniqjdfesz (Breztri Aerosphere) 160-9-4.8 MCG/ACT aerosol, Inhale 2 puffs in the morning and 2 puffs in the evening., Disp: , Rfl: Calcium Carb-Cholecalciferol (Calcium 1000 + D) 1000-20 MG-MCG tablet, Take 1 tablet by mouth in the morning., Disp: , Rfl: empagliflozin (Jardiance) 10 MG, Take 1 tablet by mouth in the morning., Disp: , Rfl: esomeprazole (NexIUM) [address] capsule, Take 1 capsule (40 mg) by mouth in the morning and 1 capsule (40 mg) before bedtime., Disp: 180 capsule, Rfl: 3 FLUoxetine (PROzac) 20 MG capsule, Take 1 capsule (20 mg) by mouth Daily, Disp: 30 capsule, Rfl: 3 fluticasone (Flonase) 50 MCG/ACT nasal spray, Administer 2 sprays into each nostril Daily, Disp: 16g, Rfl: 5 guaiFENesin (Mucinex) 600 MG 12 hr tablet, Take 1 tablet by mouth in the morning and 1 tablet in the evening., Disp: , Rfl: ipratropium (Atrovent) 0.02 % nebulizer solution, Take 3 mL by nebulization in the morning and 3 mLat noon and 3 mL in the evening and 3 mL before bedtime., Disp: , Rfl: lamoTRIgine (LaMICtal) 25 MG tablet, TAKE 2 TABLETS(50 MG) BY MOUTH AT BEDTIME, Disp: 60 tablet, Rfl: 5 levalbuterol (Xopenex) 1.25 MG/3ML nebulizer solution, INHALE THE CONTENTS OF 1 VIAL VIA NEBULIZER FOUR TIMES DAILY, Disp: , Rfl: loratadine-pseudoephedrine ER (Claritin-D 24-hour) 10-240 MG 24 hr tablet, Take 1 tablet by mouth in the morning., Disp: , Rfl: LORazepam (Ativan) 1 MG tablet, Take 1 tablet (1 mg) by mouth in the morning and 1 tablet (1 mg) atnoon and 1 tablet (1 mg) in the evening and 1 tablet (1 mg) before bedtime., Disp: 120 tablet, Rfl:1 metoprolol succinate XL (Toprol-XL) 50 MG 24 hr tablet, Take 1 tablet by mouth in the morning and 1tablet before bedtime., Disp: , Rfl: predniSONE (Deltasone) 10 MG tablet, Take 0.5 tablets (5 mg) by mouth Daily, Disp: , Rfl: Roflumilast 500 MCG tablet, Take 1 tablet by mouth in the morning., Disp: , Rfl: sacubitril-valsartan (Entresto) 49-51 MG tablet, every 12 (twelve) hours, Disp: , Rfl: sodium chloride 0.9 % nebulizer solution, Take 3 mL by nebulization if needed for wheezing, Disp: ,Rfl: Allergies Pantoprazole, Cephalexin, Chlophedianol-pseudoephedrine, Metaxalone, Metoclopramide, Montelukast, Sertraline, Ciprofloxacin, Erythromycin, and Levofloxacin Past Surgical History Past Surgical History: Procedure Laterality Date APPENDECTOMY BREAST SURGERY BRONCHOSCOPY 2017 also 2018 CARDIAC CATHETERIZATION CARDIAC SURGERY 2014 Cardiac Ablation CATARACT EXTRACTION, BILATERAL CT ANGIOGRAM ABDOMEN PELVIS 03/30/2024 CT ANGIOGRAM ABDOMEN PELVIS 03/30/2024 CT ANGIOGRAM HEART CORONARY 10/28/2019 CT ANGIOGRAM TAVR 10/28/2019 HYSTERECTOMY ILIAC ARTERY STENT 11/12/2024 TUBAL LIGATION Family History Family History Problem Relation Name Age of Onset Other (Other) Mother Varicose Veins Diabetes Father Hypertension Father Heart disease Father Hypertension Brother Heart disease Brother Objective General assessment: Alert and oriented. Pleasant disposition. Nasal O2 cannula in place. Accompanied by her spouseZafar Vascular: DP 2/4 bilateral. PT 1/4 bilateral. CFT fairly brisk all digits. Discoloration of the digital and forefoot structures consistent with acrocyanosis. Gradient temperature: Warm-cool bilateral. Unremarkable for ankle edema. Neurologic: Tactile and light touch sensation intact. Dermatologic: Skin turgor is fair. Digital hair growth is absent. Web space areas are clean, dry, non-inflamed. Unremarkable for eczema or dermatitis. Toenail pathology: All digits: None are spared: Toenail dystrophy, hypertrophy, thickening, elongation, discoloration, crumbly texture, mild clubbing, subtotal detachment, periungual hyperkeratosis, without drainage. Bilateral great toes: Pincer toenail deformity. The margins are incurvated, keratotic, tender, non-inflamed, without drainage. Orthopedic: Range of motion: Functional ankle, subtalar and 1st MTP joint range of motion. Lesion pattern: No forefoot or digital discrete keratotic lesions are noted. Radiology: Assessment/Plan Symptomatic onychodystrophy/mycosis multiple digits. Raynaud's phenomena (Q8). COPD. Chronic cigarette use. Plan: Patient remains well satisfied with a conservative and palliative care approach. Expresses no interest in oral terbinafine therapy (polypharmacy); nor is it recommended. Discussed topical care measures for consideration: Use of vinegar and/or Listerine as directed; advised as to limited efficacy but may aid and sanitary measures. Recommend Amlactin lotion daily. Procedure: Toenail debridement: Aseptic technique: Hand and power instrumentation: Onychodebridement in length and thickness, with curettage of any cryptotic margins, all periungual debris; providingeffective symptom and pressure relief; reducing shoe and digital trauma. This note was created with the assistance of a speech recognition program. While intending to generate a timely document that accurately reflects the content of the visit, no guarantee can be provided that every grammatical or spelling mistake has been or will be identified or corrected. Thank you for your understanding. Marcella Jaime DPM documented in this [facility]06-11-2025 Instructions* Patient Instructions* Marcella Jaime DPM - 02/13/2025 1:30 PM EDT As noted documented in this [facility]05-29-2025 History of Present illness Narrative* Laura Mac, DO - 01/31/2025 2:30 PM EDT Images from the original note were not included. [facility] Progress Note Patient - Marcela Brewer Age - 74 y.o. - [address] [facility] # - [id number] ASSESSMENT Chronic hypercapnic respiratory failure Chronic hypoxic respiratory failure -Home O2 dependent 3 L predominantly with exertion/ sleep -home POC Very severe COPD with emphysema/ EVIN bulla Bronchiectasis due to pseudomonas aeruginosa -allergy to Levaquin/ Cipro. Intolerant of nebulized Tobramycin -PICC and IV Cefepime x 10 days Sep 2023 -pick and IV Zosyn times 20 days February 2024 5. History of cardiomyopathy, improved. Follows at [facility] with last EF 50% (improved [id number]%) Chronic use of systemic steroids History of Mycobacterium szulgai s/p treatment with ID Tobacco use GERD Physical deconditioning. Anxiety disorder. PLAN Continue Vest therapy with HTS aerosol BID Continue Breztri and aerosols LDSCT next anticipated in March 2025 Currently mid cycle of [place] Will obtain chest x-ray, CBC, CMP and BNP given new symptoms. Overall sounds less like a pulmonary exacerbation and concerning for other etiologies Ongoing tobacco use with no plans to quit Remains chronic steroid dependent on 10 mg daily Continue supplemental oxygen therapy for which he is using and benefitting Continue regular aerosols throughout the day She continues to do her home exercise program Return to clinic in 3-4 months or earlier if needed. Will call with above and she will keep her office updated as to her symptoms SUBJECTIVE Mrs. Brewer presents for follow-up of her chronic hypoxic hypercapnic respiratory failure, very severe COPD, recurrent exacerbations, Pseudomonas colonization and bronchiectasis. She also has a history of NTM infection. She has had exacerbations predominantly related to her Pseudomonas over the past year. We have attempted nebulized tobramycin however she had bronchospasm as a result. She is currently on nebulized [place] and cycling this 28 days on and 28 days off. She has chronic steroid dependent, takes Breztri and has nebulizer machine. She continues to smoke. She does her own exercise regimen in the home and has declined pulmonary rehab. We have managed exacerbations predominantly in the home with PICC line placement and home health care with infusions of Zosyn most recently with extended treatment and previously on cefepime prior to that. She has allergy to fluoroquinolones and therefore can not take any oral antibiotics. She is also using vest therapy with 3% saline aerosols to facilitate mucus clearance. For the last 2 weeks she has been feeling more short of breath. She has is in week 2 of her Caystonbut feels different this time than her previous issues. She recently had a stent placed for her left foot swelling which did seem to be effective initially however now her foot is swollen again. She is also having some tightness in her right shoe and feels that her right foot is starting to get swollen. She feels as though she was facial edema. She feels as though she just can not take a deep cleansing breath. She has been needing the oxygen all the time when usually she can take it off for short amounts of time while she is watching a movie or eating her meal. She denies any change to mucus production. She has actually not bringing up any phlegm at all and her chest feels clear. She continues to use her flutter valve, hypertonic saline, 10 mg of prednisone. She was feeling better prior to this episode and was down to 5 mg prednisone daily. This feels different than her previous exacerbations and she is uncertain what is going on. She has increased her POC to a setting of 4 VITALS BP 159/72 Pulse 84 Ht 154.9 cm (5' 1 ) Wt 48.4 kg (106 lb 11.2 oz) LMP (LMP Unknown) UoH082% Comment: POC 4 CONTINUOUS BMI 20.16 kg/m Exam General: Alert, oriented, no acute distress, nontoxic, thin HEENT: Moist mucosal membranes, no oral lesions or oral thrush, trachea midline Chest: Diminished throughout with focal left upper lobe anterior small wheeze Increased AP diameter. CV: Regular rate regular rhythm Abdomen: Soft, nontender, no guard Extremities: No erythema, distal cyanosis, clubbing. Trace pedal edema Integumentary: Warm and dry. No rash or lesion Neuro: No lateralizing deficits. No tremors Meds Medications Reviewed. Lab Results PFT Results Radiology XR CHEST 2 VWS 05/29/25 HISTORY: Shortness of breath, history of cirrhosis COMPARISON: Chest x-ray 04/21/2024, 09/23/2023, 09/22/2023, CT chest 03/19/2024 FINDINGS: PA and lateral upright films obtained. Redemonstration of left upper quadrant abdominal vascular calcifications without any interval change. Aortic arch calcifications. Redemonstration of extensor upper bullae and blebs.. Bilateral flattening of the diaphragm, increased lucency, and increased AP diameter which is seen COPD. The cardiomediastinal silhouette is within normal limits. No pneumothorax or pleural effusion. No consolidation. IMPRESSION: * Extensive emphysematous changes similar to the previous exam.. LDSCT MARCH 2024 CLINICAL INFORMATION: Screening visit: Personal history of tobacco use/personal history of nicotine dependence. Lung cancer screening. The patient is a current smoker. The patient has a 28 pack year history of smoking. COMPARISON: 03/04/2023 TECHNIQUE: Low dose CT chest performed without contrast with coronal and sagittal and maximum intensity projection reconstructed images. Maximum intensity projection images generated to increase the sensitivityof pulmonary nodule detection. All CT scans at this facility use dose modulation, iterative reconstruction, and/or weight based dosing when appropriate to reduce radiation dose to as low as reasonably achievable. Automated exposure control was utilized. Computer aided detection for pulmonary nodules?was performed utilizing [employer] software.? FINDINGS: Diagnostic quality: Satisfactory. Evaluation of [...] CT Low Dose Lung Screening [address] Laura Mac DO. [facility] Office: [phone] documented in this encounterShel[facility]05-[facility]25 Miscellaneous Notes* Telephone Encounter - MASHA Cardenas - 01/15/2025 1:45 PM EDT Patient called office and stated that she needs a refill of her albuterol HFA inhaler, com writer informed patient that a new R x was sent to [facility] on 12/27/2024 with 3 refills, patient stated that she would contact the pharmacy. documented in this encounterShel[facility]05-13-2025 Telephone encounter Note* Telephone Encounter - MASHA Cardenas - 01/15/2025 1:45 PM EDT Patient called office and stated that she needs a refill of her albuterol HFA inhaler, com writer informed patient that a new R x was sent to [facility] on 12/27/2024 with 3 refills, patient stated that she would contact the pharmacy. [facility]04-24-2025 Miscellaneous Notes* Telephone Encounter - Karlie Tanner CMA - 12/27/2024 4:27 PM EDT Server Manager called Ang's back to clarify order per SE for azithromycin 250mg 3 times a week. Dispense 12 refills 11. documented in this encounterShel[facility]04-24-2025 Telephone encounter Note* Telephone Encounter - Karlie Tanner CMA - 12/27/2024 4:27 PM EDT Server Manager called Michelles back to clarify order per SE for azithromycin 250mg 3 times a week. Dispense 12 refills 11. [facility]04-24-[facility] Miscellaneous Notes* Telephone Encounter - Kendra RiveraMASHA - 12/27/2024 11:07 AM EDT Patient rescheduled appointment for 02/07/2025 at 3:30pm with Se. [facility] [place]. documented in this [facility]Shel[facility]04-24-2025 Telephone encounter Note* Telephone Encounter - Kendra RiveraMASHA - 12/27/2024 11:07 AM EDT Patient rescheduled appointment for 02/07/2025 at 3:30pm with Se. [facility] [place]04-24-[facility]25 Miscellaneous Notes* Telephone Encounter - Karlie Tanner CMA - 12/27/2024 10:41 AM EDT Patient left voicemail to reschedule appointment due to being up last night. Server Manager called and spoke with Nicola, and he said patient was not available but would call us back to reschedule appointment. documented in this [facility]Shel[facility]04-24-2025 Telephone encounter Note* Telephone Encounter - Karlie Tanner CMA - 12/27/2024 10:41 AM EDT Patient left voicemail to reschedule appointment due to being up last night. Server Manager called and spoke with Nicola, and he said patient was not available but would call us back to reschedule appointment. [facility]04-08-2025 NoteHNO ID: [id number] Author: ALEX RIGGINS MD Service: ? Author Type: Physician Type: Progress Notes Filed: 12/11/2024 16:05 Note Text: [facility] [place] [facility] SECTION OF HEART FAILURE and CARDIAC TRANSPLANT MEDICINE OUTPATIENT VISIT DATE December 11, 2024 OUTPATIENT VISIT TYPE Established Patient PRIMARY CARE PHYSICIAN: Luiz Tadeo ([facility]) [address] [place] [address] CHIEF COMPLAINT: Follow up NURSING INTAKE (Patient?s concerns and/or recent hospitalizations/ER visits): HF Nursing Assessment: Interim Hospitalizations and/or ER visits:no Chest Pain: no Skipping or irregular heartbeats: no Shortness of breath at rest: no Shortness of breath with activity: with exertion pt on oxygen Cough: at night sinus Waking up in the middle of the night gasping for air: no sleeps with oxygen Lightheadedness or dizziness: no Feeling like you are going to pass out: no Actually passing out: no Poor energy level: no Unintentional weight gain: no Unintentional weight loss: no Swelling in your legs,feet, abdomen: left foot Filling up quickly when you eat: no HISTORY OF PRESENT ILLNESS: 74 year old woman with severe COPD, home O2 dependent with EVIN bulla, prior Mycobacterium szulgai infection, tobacco dependence, reportedly RVOT PVC's s/p ablation 2013, severe NICM based on OSH LHC 04/2021 with LVEF in low 40's per years, who established care with me in October of 2021 as a second opinion for a further reduction in LVEF to 10-15%, now with LV recovery to an EF > 50% on GDMT. We have gradually increased GDMT and she has remained on a backbone of moderate dose ARNI, empagliflozin 10mg, metoprolol succinate 50mg BID, and was briefly on MRA though off due to issues with hyponatremia. Overall she has done very well to this with interval recovery in LVEF by both CMR and TTE. Stable since last visit from cardiac standpoint. OSH TTE 04/28 with preserved EF. Had venous stenting for occlusive disease at OSH recently. PAST MEDICAL HISTORY Diagnosis Date Bronchiectasis (HCC) [...] Levofloxacin Rash, Swelling Tongue swelling CURRENT MEDICATIONS: ASPIRIN CHILD ORAL Take 81 mg by mouth once daily. empagliflozin (JARDIANCE) 10 mg tablet Take 1 tablet by mouth once daily. fluoxetine HCl (FLUOXETINE ORAL) Take 10 mg by mouth once daily. metoprolol succinate ER (TOPROL XL) 50 mg 24 hr tablet Take 1 tablet by mouth two times a day. sacubitril-valsartan (ENTRESTO) 49-51 mg tablet Take 1 tablet by mouth twice daily. acetaminophen (TYLENOL) 325 mg tablet Take 650 mg by mouth every 4 hours as needed. atorvastatin (LIPITOR) 10 mg tablet Take 10 mg by mouth once daily. calcium carbonate-vitamin D3 1,000 mg-20 mcg (800 unit) tab Take 1 tablet by mouth once daily. esomeprazole (NEXIUM) 40 mg capsule Take 40 mg by mouth twice daily. LORazepam (ATIVAN) 1 mg tablet Take 1 mg by mouth four times daily. nitroglycerin (NITRO-BID) 2 % ointment as needed. Raynaud's predniSONE (DELTASONE) 10 mg tablet Take 10 mg by mouth once daily. roflumilast (DALIRESP) 500 mcg tab Take 500 mcg by mouth once daily. Vitamin E, dl, acetate, (VITAMIN E) 400 unit capsule Take 400 Units by mouth once daily. aztreonam lysine (CAYSTON) 75 mg/mL nebulizer solution 75 mg three times a day. 3x daily for 28 days then off for 28 days sodium chloride (NEBUSAL) 3 % nebulizer solution INHALE CONTENTS OF 1 VIAL VIA NEBULIZER EVERY DAY yoncdhirys-pbtrdguh-fsirmhqyhr (BREZTRI AEROSPHERE) 160-9-4.8 mcg/actuation HFA aerosol inhaler Inhale 2 Puffs as instructed. torsemide (DEMADEX) 10 mg tablet Take 1 tablet by mouth (more content not included)...[facility]04-08-2025 History of Present illness Narrative* Alex Riggins MD - 12/11/2024 3:19 PM EDT Images from the original note were not included. Heart [facility] V[facility] [place] [facility] SECTION OF HEART FAILURE and CARDIAC TRANSPLANT MEDICINE OUTPATIENT VISIT DATE December 11, 2024 OUTPATIENT VISIT TYPE Established Patient PRIMARY CARE PHYSICIAN: Luiz Tadeo ([facility]) [address] [place] [address] CHIEF COMPLAINT: Follow up NURSING INTAKE (Patient s concerns and/or recent hospitalizations/ER visits): HF Nursing Assessment: Interim Hospitalizations and/or ER visits:no Chest Pain: no Skipping or irregular heartbeats: no Shortness of breath at rest: no Shortness of breath with activity: with exertion pt on oxygen Cough: at night sinus Waking up in the middle of the night gasping for air: no sleeps with oxygen Lightheadedness or dizziness: no Feeling like you are going to pass out: no Actually passing out: no Poor energy level: no Unintentional weight gain: no Unintentional weight loss: no Swelling in your legs,feet, abdomen: left foot Filling up quickly when you eat: no HISTORY OF PRESENT ILLNESS: 74 year old woman with severe COPD, home O2 dependent with EVIN bulla, prior Mycobacterium szulgai infection, tobacco dependence, reportedly RVOT PVC's s/p ablation 2013, severe NICM based on [facility] 04/2021 with LVEF in low 40's per years, who established care with nd in October of 2021 as a secondopinion for a further reduction in LVEF to 10-15%, now with LV recovery to an EF > 50% on GDMT. We have gradually increased GDMT and she has remained on a backbone of moderate dose ARNI, empagliflozin 10mg, metoprolol succinate 50mg BID, and was briefly on MRA though off due to issues with hyponatremia. Overall she has done very well to this with interval recovery in LVEF by both CMR and TTE. Stable since last visit from cardiac standpoint. OSH TTE 04/28 with preserved EF. Had venous stenting for occlusive disease at OSH recently. PAST MEDICAL HISTORY Diagnosis Date Bronchiectasis (HCC) [...] Types: Cigarettes Smokeless tobacco: Never Tobacco comments: 06-16 cigaretts daily Substance Use Topics Alcohol [...] Levofloxacin Rash, Swelling Tongue swelling CURRENT MEDICATIONS: ASPIRIN CHILD ORAL Take 81 mg by mouth once daily. empagliflozin (JARDIANCE) 10 mg tablet Take 1 tablet by mouth once daily. fluoxetine HCl (FLUOXETINE ORAL) Take 10 mg by mouth once daily. metoprolol succinate ER (TOPROL XL) 50 mg 24 hr tablet Take 1 tablet by mouth two times a day. sacubitril-valsartan (ENTRESTO) 49-51 mg tablet Take 1 tablet by mouth twice daily. acetaminophen (TYLENOL) 325 mg tablet Take 650 mg by mouth every 4 hours as needed. atorvastatin (LIPITOR) 10 mg tablet Take 10 mg by mouth once daily. calcium carbonate-vitamin D3 1,000 mg-20 mcg (800 unit) tab Take 1 tablet by mouth once daily. esomeprazole (NEXIUM) 40 mg capsule Take 40 mg by mouth twice daily. LORazepam (ATIVAN) 1 mg tablet Take 1 mg by mouth four times daily. nitroglycerin (NITRO-BID) 2 % ointment as needed. Raynaud's predniSONE (DELTASONE) 10 mg tablet Take 10 mg by mouth once daily. roflumilast (DALIRESP) 500 mcg tab Take 500 mcg by mouth once daily. Vitamin E, dl, acetate, (VITAMIN E) 400 unit capsule Take 400 Units by mouth once daily. aztreonam lysine (CAYSTON) 75 mg/mL nebulizer solution 75 mg three times a day. 3x daily for 28 days then off for 28 days sodium chloride (NEBUSAL) 3 % nebulizer solution INHALE CONTENTS OF 1 VIAL VIA NEBULIZER EVERY DAY kkbfkmrbbt-gshvtode-ffbwcpngre (BREZTRI AEROSPHERE) 160-9-4.8 mcg/actuation HFA aerosol inhaler Inhale 2 Puffs as instructed. torsemide (DEMADEX) 10 mg tablet Take 1 tablet by mouth once daily as needed. albuterol HFA (PROVENTIL HFA, VENTOLIN HFA) 90 mcg/actuation inhaler once daily as needed. levalbuterol (XOPENEX) 1.25 mg/3 mL nebulizer solution four times daily. ipratropium (ATROVENT) 0.02 % nebulizer solution Use 0.5 mg via nebulizer four times daily. REVIEW OF SYSTEMS: ROS HEART FAILURE PATIENT ENTERED DATA: 05/03/2022 10/19/2022 03/24/2023 KCCQ-12 Scores Physical Limitation Score 75 (Class II Heart Failure ) 50 (Class III Heart Failure ) 58.33 (Class III Heart Failure ) Symptom Frequency Score 58.33 (Class III Heart Failure ) 70.83 (Class II Heart Failure ) 41.67 (Class III Heart Failure ) Quality of Life Score 62.5 (Fair to Good Quality of Life) 50 (Fair to Good Quality of Life) 62.5 (Fair to Good Quality of Life) Social Limitation Score 66.67 (Class II Heart Failure) 50 (Class III Heart Failure) Incomplete Overall Summary Score 65.63 (Class II Heart Failure ) 55.21 (Class III Heart Failure ) Incomplete 05/03/2022 10/19/2022 03/24/2023 PHQ-9 Score 1 0 2 05/03/2022 10/19/2022 03/24/2023 PROMIS Global Health - (T-Scores - the mean of general population = 50. Five points is a clinicallymeaningful difference.) Physical T-Score 54.1 47.7 50.8 Mental T-Score 53.3 53.3 53.3 PHYSICAL EXAMINATION: BP 139/118 Pulse 91 Resp 15 Ht 156.2 cm (5' 1.5 ) Wt 48.5 kg (107 lb) SpO2 98% BMI 19.89 kg/m General: Well appearing, in no acute distress. Skin: No clubbing, no cyanosis. Eyes: Extra ocular movements intact Oropharynx: Teeth in good repair. Neck: No jugular venous distention, no carotid bruits, carotids have a normal upstroke, no palpablethyromegaly. Lungs: Diffuse wheezing Heart: Regular rhythm, PMI not displaced, S1, S2 normal, no S3, no S4, no heaves, no rub and no murmur. Abdomen: Soft, nontender, bowel sounds normal, no palpable organomegaly, no bruits. Extremities: Trace peripheral edema . Grade 2/4 distal pulses bilaterally. Neuro: Oriented to person, place and time, alert, cooperative, gait coordinated. CARDIOVASCULAR MEDICINE TESTING: I have personally reviewed the Laboratory Testing and Echocardiogram. Last ECHO Result Conclusion ECHO Collected: 03/24/2023 [...] C heart failure Target weight: ~107 lbs 74 year old woman with severe COPD, home O2 dependent with EVIN bulla, prior Mycobacterium szulgai infection, tobacco dependency, reportedly RVOT PVC's s/p ablation 2013, severe NICM based on [facility] 04/2021 with LVEF in low 40's per years, who established care with me in October of 2021 as a a second opinion for a further reduction in LVEF to 10-15%. With intensification of her GDMT and lifestylemodification (reduction in tobacco use and reduction in use of a pseudoephedrine-containing allergymedication) she has made significant strides towards left [...] to avoid pseudoephedrine containing products HLD - Above goal, increase to atorva 20 I personally interviewed, confirmed and edited the above information as obtained by others I personally spent 40 minutes in total time involved in the management and care of this patient. Wediscussed natural history of disease, current treatment options, and future potential treatment options. We discussed diet, exercise, other non-medical management as above. Alex Riggins MD [facility] Section Of Heart Failure and Cardiac Transplant Medicine Heart and Vascular [place] [facility] Desk J3-[address] [place] [address] documented in this [facility]High[facility] Telephone encounter Note * Telephone Encounter - NELA GODDARD - 11/26/2024 9:13 AM EDT [id number] Miscellaneous Notes* Telephone Encounter - NELA GODDARD - 11/26/2024 9:13 AM EDT MEDICATION SENT TO [facility] documented in this encounterResearch [facility] [id number] Hospital Discharge instructions Patient Education 11/12/2024 14:12:09 CV - Cardiovascular PCI Discharge Instructions (Custom) [place], [place] Cardiovascular PCI DISCHARGE INSTRUCTIONS Diet: Resume pre-procedure diet. Increase water intake the next 2 days to flush dye out of the body. Activity: If groin access: Limit activity today. Do not operate a vehicle, machinery or power tools. NO LIFTING OVER 10 POUNDS (a gallon of milk weighs 8 pounds) for 3 days. Limit climbing stairs, bending, squatting and stooping for 3 days. May resume driving in 24 hours. Let pain/discomfort guide your activity. If you are having pain, stop. No sexual activity for 1 week. Return to the Emergency Room if you have trouble breathing, walking or nausea and vomiting. Medications: Resume pre-procedure medication, unless otherwise directed. Minimal pain, soreness and/or discomfort is expected. If you are prescribed an aspirin and/or antiplatelet (such as Plavix, Brilinta or Effient) do NOT stop taking these medications for any reason without talking to your bottom cementer Site Care: Do not remove dressing for 24 hours unless it becomes saturated, then replace. Keep site clean and dry; inspect site daily. Do not use any lotions, powders, or ointments at the groin or wrist site for 1 week. May shower 24 hours after the procedure. Clean site with soap and water. Pat dry and apply band aid. No tub baths, swimming or hot tubs for 3 days. Post Procedure: Soreness and tenderness to the site can last up to one week. Bruising may occur to site. A responsible adult should be with you for the first 24 hours after you arrive home. Keep follow-up appointment. Carry your stent card with you at all times. This provides information about your heart disease forany doctor who cares for you. No smoking for 24 hours as it increases the risk of developing blood clots. If you are interested in smoking cessation, contact [facility] at [phone], ext. [phone]. In the event you are unable to reach your physician, please call Jay at [phone] and the assistant press operator will assist you. Seek Medicare Care for: Bleeding: Apply continuous pressure to the site and Call 911. Should the arm or leg become cold, numb, blue or white call your physician immediately. Signs of infection are redness, warmth, swelling, getting more sore, colored drainage, fever or chills Chest pain Blood in your urine or stool Black tarry stools Wear SARAH wrap from toes to thigh on left leg. May take off at night, and reapply in am. Follow Up Care 10/30/2024 14:02:10 With:Fox SMITH, Levar Arevalo Address: [address] [place], [place] [id number] When: Unknown Comments:Keep scheduled appointment [facility] [id number] NotePatient Education - Text [place], [place] Cardiovascular PCI DISCHARGE INSTRUCTIONS Diet: ??? Resume pre-procedure diet. ??? Increase water intake the next 2 days to flush dye out of the body. Activity: If groin access: ??? Limit activity today. Do not operate a vehicle, machinery or power tools. ??? NO LIFTING OVER 10 POUNDS (a gallon of milk weighs 8 pounds) for 3 days. ??? Limit climbing stairs, bending, squatting and stooping for 3 days. ??? May resume driving in 24 hours. ??? Let pain/discomfort guide your activity. If you are having pain, stop. ??? No sexual activity for 1 week. ??? Return to the Emergency Room if you have trouble breathing, walking or nausea and vomiting. Medications: ??? Resume pre-procedure medication, unless otherwise directed. ??? Minimal pain, soreness and/or discomfort is expected. ??? If you are prescribed an aspirin and/or antiplatelet (such as Plavix, Brilinta or Effient) do NOT stop taking these medications for any reason without talking to your bottom cementer Site Care: ??? Do not remove dressing for 24 hours unless it becomes saturated, then replace. ??? Keep site clean and dry; inspect site daily. ??? Do not use any lotions, powders, or ointments at the groin or wrist site for 1 week. ??? May shower 24 hours after the procedure. Clean site with soap and water. Pat dry and apply bandaid. No tub baths, swimming or hot tubs for 3 days. Post Procedure: ??? Soreness and tenderness to the site can last up to one week. ??? Bruising may occur to site. ??? A responsible adult should be with you for the first 24 hours after you arrive home. ??? Keep follow-up appointment. ??? Carry your stent card with you at all times. This provides information about your heart diseasefor any doctor who cares for you. ??? No smoking for 24 hours as it increases the risk of developing blood clots. ??? If you are interested in smoking cessation, contact [facility] at [phone], ext. [phone]. ??? In the event you are unable to reach your physician, please call Cathie Smith at [phone] and the assistant press operator will assist you. Seek Medicare Care for: ??? Bleeding: Apply continuous pressure to the site and Call 911. ??? Should the arm or leg become cold, numb, blue or white call your physician immediately. ??? Signs of infection are redness, warmth, swelling, getting more sore, colored drainage, fever orchills ??? Chest pain ??? Blood in your urine or stool ??? Black tarry stools Wear SARAH wrap from toes to thigh on left leg. May take off at night, and reapply in am. aspirin (oral) ( pir in) Aspi-Cor, Tabitha Plus, Ecotrin, Miniprin, [place]alore What is the most important information I should know about aspirin? Aspirin can cause Frances's syndrome, a serious and sometimes fatal condition in children. What is aspirin? Aspirin is a salicylate (cr-ETR-xb-ate) that is used to treat pain, and reduce fever or inflammation. Aspirin is sometimes used to treat or prevent heart attacks, strokes, and chest pain (angina). Aspirin should be used for these conditions only under the supervision of a doctor. Aspirin may also be used for purposes not listed in this medication guide. What should I discuss with my healthcare provider before taking aspirin? Using aspirin in a child or teenager with flu symptoms or chickenpox can cause a serious or fatal condition called Frances's syndrome. You should not use aspirin if you are allergic to it, or if you have: ? a recent history of stomach or intestinal bleeding; ??? a bleeding disorder such as hemophilia; or ??? if you have ever had an asthma attack or severe allergic reaction after taking aspirin or an NSAID (non-steroidal anti-inflammatory drug). Tell your doctor if you have ever had: ? asthma or seasonal allergies; ??? stomach ulcers; ??? liver disease; ??? kidney disease; ??? a bleeding or blood clotting disorder; ??? gout; or ??? heart disease, high blood pressure, or congestive heart failure. Taking aspirin during late may cause bleeding in the mother or the baby during delivery. Tell your doctor if you are or plan to become . You should not breastfeed while using this medicine. How should I take aspirin? Use exactly as directed on the label, or as prescribed by your doctor. Always follow directions on the medicine label about giving aspirin to a child. Take with food if aspirin upsets your stomach. You must chew the chewable tablet before you swallow it. Do not crush, chew, break, or open an enteric-coated or delayed/extended-release pill. Swallow it whole. Tell your doctor if you have a planned surgery. Store at room temperature away from moisture and heat. Do not use aspirin if you smell a strong vinegar odor in the aspirin bottle. The medicine may no longer be effective. What happens if I miss a dose? Aspirin is used when needed. If you are on a dosing (more content not included)...[facility]02-24-2025 Hospital Discharge instructions Patient Education 10/29/2024 12:04:21 Venogram Venogram A venogram, or venography, is a procedure that uses an X-ray and contrast dye to examine how well the veins work and how blood flows through them, especially in your legs. Contrast dye helps the veins show up on X-rays. A venogram may be done: To identify clots within veins, such as deep vein thrombosis (DVT). To find out where a blood clot started that has traveled to a lung (pulmonary embolism). To evaluate abnormalities in the vein, such as swelling. To map out the veins that might be needed for another procedure, for example for bypass graft surgery. To look at vein problems present at (congenital). Tell a health care provider about: Any allergies you have, especially allergies to iodine or contrast. All medicines you are taking, including vitamins, herbs, eye drops, creams, and eqkm-lvq-djflxlc medicines. Any problems you or family members have had with anesthetic medicines. Any surgeries you have had. Any medical conditions you have, especially kidney failure or other kidney problems. In some cases,the contrast dye can cause kidney failure, especially if you are taking certain diabetes medicines. Any bleeding problems you have or if you are taking blood-thinning medicines (anticoagulants), aspirin, or other medicines that affect blood clotting. Whether you are , may be , or are . What are the risks? Your health care provider will talk with you about risks. These may include: Infection at the IV insertion site. Bleeding or blood clots. Allergic reaction to medicines, contrast dye, or iodine. Damage to other structures or organs. Kidney problems. Increased risk of cancer from radiation exposure. This risk is low. What happens before the procedure? Medicines Ask your health care provider about: Changing or stopping your regular medicines. These include any diabetes medicines or blood thinnersyou take. Taking medicines such as aspirin and ibuprofen. These medicines can thin your blood. Do not take them unless your health care provider tells you to. Taking adva-bev-pmrutlo medicines, vitamins, herbs, and supplements. General instructions Follow instructions from your health care provider about what you may eat and drink. You may have blood tests to check how well your kidneys and liver are working and how well your blood can clot. If you will be going home right after the procedure, plan to have a responsible adult: ?Take you home from the hospital or clinic. You will not be allowed to drive. ?Care for you for the time you are told. What happens during the procedure? You may be given a sedative. This helps you relax. You will lie down on an X-ray table. The table may be tilted in different directions during the procedure. Safety straps will keep you secure if the table is tilted. Your healthcare provider will clean a designated area and then put an intravenous (IV) line into a vein in your foot or hand. The contrast dye will be injected into your IV. ?You may have a hot, flushed feeling as it moves throughout your body. You may also have a metallictaste in your mouth. Both of these sensations will go away after a few minutes. ?Your healthcare provider may use a tourniquet on your leg to control how fast the blood flows. You may be asked to lie in different positions or place your legs or arms in different positions. At the end of the procedure, you may be given IV fluids to help wash (flush) the contrast dye out of your veins. The IV will be removed. A bandage (dressing) may be applied to the IV site. The procedure may vary among health care providers and hospitals. What happens after the procedure? Your blood pressure, heart rate, breathing rate, and blood oxygen level will be monitored until youleave the hospital or clinic. Pulses in your feet will also be checked, as well as the temperature, color, and sensation in your legs. It is up to you to get the results of your procedure. Ask your health care provider, or the department that is doing the procedure, when your results will be ready. This information is not intended to replace advice given to you by your health care provider. Make sure you discuss any questions you have with your health care provider. Document Revised: 01/03/2023 Document Reviewed: 01/03/2023 [employer] Patient Education 2023 [employer]. [facility] 02-24-2025 NotePatient Education - Text Radiology Venogram A venogram, or venography, is a procedure that uses an X-ray and contrast dye to examine how well the veins work and how blood flows through them, especially in your legs. Contrast dye helps the veins show up on X-rays. A venogram may be done: ??? To identify clots within veins, such as deep vein thrombosis (DVT). ??? To find out where a blood clot started that has traveled to a lung (pulmonary embolism). ??? To evaluate abnormalities in the vein, such as swelling. ??? To map out the veins that might be needed for another procedure, for example for bypass graft surgery. ??? To look at vein problems present at (congenital). Tell a health care provider about: ??? Any allergies you have, especially allergies to iodine or contrast. ??? All medicines you are taking, including vitamins, herbs, eye drops, creams, and fkkn-ocz-hghdxjv medicines. ??? Any problems you or family members have had with anesthetic medicines. ??? Any surgeries you have had. ??? Any medical conditions you have, especially kidney failure or other kidney problems. In some cases, the contrast dye can cause kidney failure, especially if you are taking certain diabetes medicines. ??? Any bleeding problems you have or if you are taking blood-thinning medicines (anticoagulants), aspirin, or other medicines that affect blood clotting. ??? Whether you are , may be , or are . What are the risks? Your health care provider will talk with you about risks. These may include: ??? Infection at the IV insertion site. ??? Bleeding or blood clots. ??? Allergic reaction to medicines, contrast dye, or iodine. ??? Damage to other structures or organs. ??? Kidney problems. ??? Increased risk of cancer from radiation exposure. This risk is low. What happens before the procedure? Medicines Ask your health care provider about: ??? Changing or stopping your regular medicines. These include any diabetes medicines or blood thinners you take. ??? Taking medicines such as aspirin and ibuprofen. These medicines can thin your blood. Do not take them unless your health care provider tells you to. ??? Taking magj-sru-sccrudp medicines, vitamins, herbs, and supplements. General instructions ??? Follow instructions from your health care provider about what you may eat and drink. ??? You may have blood tests to check how well your kidneys and liver are working and how well yourblood can clot. ??? If you will be going home right after the procedure, plan to have a responsible adult: ? Take you home from the hospital or clinic. You will not be allowed to drive. ? Care for you for the time you are told. What happens during the procedure? You may be given a sedative. This helps you relax. ??? You will lie down on an X-ray table. The table may be tilted in different directions during theprocedure. Safety straps will keep you secure if the table is tilted. ??? Your healthcare provider will clean a designated area and then put an intravenous (IV) line into a vein in your foot or hand. ??? The contrast dye will be injected into your IV. ? You may have a hot, flushed feeling as it moves throughout your body. You may also have a metallic taste in your mouth. Both of these sensations will go away after a few minutes. ? Your healthcare provider may use a tourniquet on your leg to control how fast the blood flows. ??? You may be asked to lie in different positions or place your legs or arms in different positions. ??? At the end of the procedure, you may be given IV fluids to help wash (flush) the contrast dye out of your veins. ??? The IV will be removed. A bandage (dressing) may be applied to the IV site. The procedure may vary among health care providers and hospitals. What happens after the procedure? Your blood pressure, heart rate, breathing rate, and blood oxygen level will be monitored untilyou leave the hospital or clinic. ??? Pulses in your feet will also be checked, as well as the temperature, color, and sensation in your legs. ??? It is up to you to get the results of your procedure. Ask your health care provider, or the department that is doing the procedure, when your results will be ready. This information is not intended to replace advice given to you by your health care provider. Make sure you discuss any questions you have with your health care provider. Document Revised: 01/03/2023 Document Reviewed: 01/03/2023 [employer] Patient Education ? [address] 10-26-2024 Miscellaneous Notes* Telephone Encounter - MASHA Cardenas - 10/26/2024 10:26 AM EST Patient called office, she stated that she called earlier this week requesting a refill of her prednisone 10 mg tablet to be sent to [facility], patient stated that she spoke with someone in the office and they told her she had 6 refills on her Rx from 02/2024, patient is out of refills and needs a new Rx sent to [facility] in [place].Patient stated that she will be out of her prednisone over the weekend. [facility] Telephone encounter Note* Telephone Encounter - MASHA Cardenas - 10/26/2024 10:26 AM EST Patient called office, she stated that she called earlier this week requesting a refill of her prednisone 10 mg tablet to be sent to [facility], patient stated that she spoke with someone in the office and they told her she had 6 refills on her Rx from 02/2024, patient is out of refills and needs a new Rx sent to [facility] in [place].Patient stated that she will be out of her prednisone over the weekend. [facility]02-[facility] History of Present illness Narrative* Marcella Jaime, PREET - 10/16/2024 1:45 PM EST Images from the original note were not included. Subjective Patient ID: Marcela Brewer is a 74 y.o. female who presents for Ingrown Toenail. HPI Patient last in clinic in November of 2021. Chief complaint: Thickened, discolored and deformed toenails multiple digits. Insidious onset with gradual progressive deformity over multiple years. Problematic/symptomatic over the past several months or so; describing pressure discomfort with footwear; catching and snagging on clothing, bed sheets etc.. Denies bleeding or drainage. Reports persistent discoloration of the forefoot and digital areas, consistent with history of Raynaud's phenomena. Self care measures are difficult, ineffective and not practical; increasing risk exposure. Family members unable to provide effective care. There has been no specific treatment to date. Risk factors: Medical comorbidities. Type II diabetes. COPD/nasal O2 cannula dependent. Raynaud's phenomena. Polypharmacy. Chronic cigarette use. Mobility, flexibility and dexterity restraints. Toenail deformity. Digital and/or shoe trauma and related complications. Medications Current Outpatient Medications: albuterol HFA 90 mcg/act inhaler, Inhale 2 puffs every 6 (six) hours if needed for wheezing or shortness of breath, Disp: , Rfl: atorvastatin (Lipitor) 10 MG tablet, Take 1 tablet (10 mg) by mouth at bedtime, Disp: 90 tablet, Rfl: 3 azithromycin (Zithromax) 250 MG tablet, , Disp: , Rfl: Kzionyn-Yjribepxutw-Wfjovvjihd (Breztri Aerosphere) 160-9-4.8 MCG/ACT aerosol, Inhale 2 puffs in the morning and 2 puffs in the evening., Disp: , Rfl: Calcium Carb-Cholecalciferol (Calcium 1000 + D) 1000-20 MG-MCG tablet, Take 1 tablet by mouth in the morning., Disp: , Rfl: empagliflozin (Jardiance) 10 MG, Take 1 tablet by mouth in the morning., Disp: , Rfl: esomeprazole (NexIUM) [address] capsule, Take 1 capsule (40 mg) by mouth in the morning and 1 capsule (40 mg) before bedtime., Disp: 180 capsule, Rfl: 3 FLUoxetine (PROzac) 20 MG capsule, Take 1 capsule (20 mg) by mouth Daily, Disp: 30 capsule, Rfl: 3 fluticasone (Flonase) 50 MCG/ACT nasal spray, Administer 2 sprays into each nostril Daily, Disp: 16g, Rfl: 5 guaiFENesin (Mucinex) 600 MG 12 hr tablet, Take 1 tablet by mouth in the morning and 1 tablet in the evening., Disp: , Rfl: ipratropium (Atrovent) 0.02 % nebulizer solution, Take 3 mL by nebulization in the morning and 3 mLat noon and 3 mL in the evening and 3 mL before bedtime., Disp: , Rfl: lamoTRIgine (LaMICtal) 25 MG tablet, Take 2 tablets (50 mg) by mouth at bedtime, Disp: 60 tablet, Rfl: 5 levalbuterol (Xopenex) 1.25 MG/3ML nebulizer solution, INHALE THE CONTENTS OF 1 VIAL VIA NEBULIZER FOUR TIMES DAILY, Disp: , Rfl: loratadine-pseudoephedrine ER (Claritin-D 24-hour) 10-240 MG 24 hr tablet, Take 1 tablet by mouth in the morning., Disp: , Rfl: LORazepam (Ativan) 1 MG tablet, Take 1 tablet (1 mg) by mouth in the morning and 1 tablet (1 mg) atnoon and 1 tablet (1 mg) in the evening and 1 tablet (1 mg) before bedtime., Disp: 120 tablet, Rfl:1 metoprolol succinate XL (Toprol-XL) 50 MG 24 hr tablet, Take 1 tablet by mouth in the morning and 1tablet before bedtime., Disp: , Rfl: predniSONE (Deltasone) 10 MG tablet, Take 0.5 tablets (5 mg) by mouth Daily, Disp: , Rfl: Roflumilast 500 MCG tablet, Take 1 tablet by mouth in the morning., Disp: , Rfl: sacubitril-valsartan (Entresto) 49-51 MG tablet, every 12 (twelve) hours, Disp: , Rfl: sodium chloride 0.9 % nebulizer solution, Take 3 mL by nebulization if needed for wheezing, Disp: ,Rfl: Allergies Pantoprazole, Cephalexin, Chlophedianol-pseudoephedrine, Metaxalone, Metoclopramide, Montelukast, Sertraline, Ciprofloxacin, Erythromycin, and Levofloxacin Past Surgical History Past Surgical History: Procedure Laterality Date APPENDECTOMY BREAST SURGERY BRONCHOSCOPY 2017 also 2018 CARDIAC CATHETERIZATION CARDIAC SURGERY 2014 Cardiac Ablation CATARACT EXTRACTION, BILATERAL CT ANGIOGRAM ABDOMEN PELVIS 03/30/2024 CT ANGIOGRAM ABDOMEN PELVIS 03/30/2024 CT ANGIOGRAM HEART CORONARY 10/28/2019 CT ANGIOGRAM TAVR 10/28/2019 HYSTERECTOMY TUBAL LIGATION Family History Family History Problem Relation Name Age of Onset Other (Other) Mother Varicose Veins Diabetes Father Hypertension Father Heart disease Father Hypertension Brother Heart disease Brother Objective General assessment: Alert and oriented. Pleasant disposition. Nasal O2 cannula in place. Accompanied by her spouseZafar Vascular: DP 2/4 bilateral. PT 1/4 bilateral. CFT fairly brisk all digits. Discoloration of the digital and forefoot structures consistent with acrocyanosis. Gradient temperature: Warm-cool bilateral. Unremarkable for ankle edema. Neurologic: Tactile and light touch sensation intact. Dermatologic: Skin turgor is fair. Digital hair growth is absent. Web space areas are clean, dry, non-inflamed. Unremarkable for eczema or dermatitis. Toenail pathology: All digits: None are spared: Toenail dystrophy, hypertrophy, thickening, elongation, discoloration, crumbly texture, mild clubbing, subtotal detachment, periungual hyperkeratosis, without drainage. Bilateral great toes: Pincer toenail deformity. The margins are incurvated, keratotic, tender, non-inflamed, without drainage. Orthopedic: Range of motion: Functional ankle, subtalar and 1st MTP joint range of motion. Lesion pattern: No forefoot or digital discrete keratotic lesions are noted. Radiology: Assessment/Plan Symptomatic onychodystrophy/mycosis multiple digits. Raynaud's phenomena by history. COPD. Chronic cigarette use. Plan: Patient remains well satisfied with a conservative and palliative care approach. Expresses no interest in oral terbinafine therapy (polypharmacy); nor is it recommended. Discussed topical care measures for consideration: Use of vinegar and/or Listerine as directed; advised as to limited efficacy but may aid and sanitary measures. Procedure: Toenail debridement: Aseptic technique: Hand and power instrumentation: Onychodebridement in length and thickness, with curettage of any cryptotic margins, all periungual debris; providingeffective symptom and pressure relief; reducing shoe and digital trauma. This note was created with the assistance of a speech recognition program. While intending to generate a timely document that accurately reflects the content of the visit, no guarantee can be provided that every grammatical or spelling mistake has been or will be identified or corrected. Thank you for your understanding. Marcella Jaime DPM documented in this [facility]02-11-2025 Instructions* Patient Instructions* Marcella Jaime DPM - 10/16/2024 1:45 PM EST As noted documented in this [facility]01-28-2025 Telephone encounter Note* Telephone Encounter - Rj Melendez - 10/02/2024 12:24 PM EST Images from the original note were not included. [facility]01-28-2025 Miscellaneous Notes* Telephone Encounter - Rj Melendez - 10/02/2024 12:24 PM EST Images from the original note were not included. documented in this [facility]High[facility] History of Present illness Narrative* Luiz Tadeo MD - 09/24/2024 2:01 PM ESTAssociated Problem(s): Chronic dysfunction of right eustachian tube Continued symptoms and no improvement with flonase. Refer to ENT. * Luiz Tadeo MD - 09/24/2024 2:01 PM ESTAssociated Problem(s): Pulmonary hypertension (CMS/HCC) Follow with specialists. * Luiz Tadeo MD - 09/24/2024 2:01 PM ESTAssociated Problem(s): Nonischemic cardiomyopathy (CMS/HCC) Follow with cardiology. * Luiz Tadeo MD - 09/24/2024 2:00 PM ESTAssociated Problem(s): Heart failure with improved ejection fraction (HFimpEF) (CMS/HCC) Edema stable and recent echo normal. Follow with cardiology. * Luiz Tadeo MD - 09/24/2024 2:00 PM ESTAssociated Problem(s): Chronic respiratory failure with hypoxia (CMS/HCC) Follow with specialists. * Luiz Tadeo MD - 09/24/2024 2:00 PM ESTAssociated Problem(s): Chronic respiratory failure with hypercapnia (CMS/HCC) Follow with specialists. * Luiz Tadeo MD - 09/24/2024 2:00 PM ESTAssociated Problem(s): Bronchiectasis (CMS/HCC) Symptoms stable and follow with pulmonology. * Luiz Tadeo MD - 09/24/2024 1:59 PM ESTAssociated Problem(s): Medicare annual wellness visit, subsequent Due for labs. Discussed proper diet and regular aerobic exercise. Need aerobic exercise 5-6 days a week for 30 minutes at a time. Smaller portions and limit total calories. Cologuard normal December 2021. Tetanus every 10 years. Advised not to smoke. * Luiz Tadeo MD - 09/24/2024 1:30 PM EST Images from the original note were not included. Subjective Patient ID: Marcela Brewer is a 74 y.o. female who presents for Medicare Annual Wellness Visit Subsequent. Presents for medicare annual wellness visit. Feels well today. Weight down 3 pounds in past year. Active and exercises several days a week. Tries to watch diet and eat healthy. Increased fruits and vegetables. Smaller portions and limits snacking. Tries to limit total daily calories. Due for labs. Breathing stable. Following with pulmonology and remains on oxygen. Mild SOB with exertion and need frequent breaks. Edema and mood stable. Request referral to ENT. Right ear plugged and popping. Hearing muffled. Mild congestion and postnasal drip. On flonase daily but not helping. Review of Systems Respiratory: Negative for cough, shortness of breath and wheezing. Cardiovascular: Negative for chest pain and palpitations. Gastrointestinal: Negative for abdominal pain, diarrhea, nausea and vomiting. Genitourinary: Negative for dysuria. Objective Physical Exam Constitutional: General: She is not in acute distress. Appearance: Normal appearance. HENT: Head: Normocephalic. Right Ear: Tympanic membrane normal. Left Ear: Tympanic membrane normal. Eyes: Extraocular Movements: Extraocular movements intact. Pupils: Pupils are equal, round, and reactive to light. Cardiovascular: Rate and Rhythm: Normal rate and regular rhythm. Heart sounds: No murmur heard. No friction rub. No gallop. Pulmonary: Effort: Pulmonary effort is normal. Breath sounds: Normal breath sounds. No wheezing, rhonchi or rales. Abdominal: General: Bowel sounds are normal. There is no distension. Palpations: Abdomen is soft. Tenderness: There is no abdominal tenderness. There is no guarding or rebound. Musculoskeletal: General: No swelling or tenderness. Cervical back: Neck supple. Right lower leg: No edema. Left lower leg: No edema. Skin: Findings: No erythema or rash. Neurological: General: No focal deficit present. Mental Status: She is alert and oriented to person, place, and time. Cranial Nerves: No cranial nerve deficit. Motor: No weakness. Gait: Gait normal. Assessment/Plan Problem List Items Addressed This Visit Bronchiectasis ([facility]/HCC) Symptoms stable and follow with pulmonology. Chronic respiratory failure with hypoxia ([facility]) Follow with specialists. GERD (gastroesophageal reflux disease) Relevant Medications esomeprazole (NexIUM) [address] capsule Nonischemic cardiomyopathy ([facility]/HCC) Follow with cardiology. Heart failure with improved ejection fraction (HFimpEF) ([facility]) Edema stable and recent echo normal. Follow with cardiology. LUCERO (generalized anxiety disorder) (CMS/HCC) Dyslipidemia (CMS/HCC) Relevant Orders Lipid panel Chronic respiratory failure with hypercapnia ([facility]) Follow with specialists. Major depressive disorder, recurrent episode, moderate ([facility]/HCC) Medicare annual wellness visit, subsequent - Primary Due for labs. Discussed proper diet and regular aerobic exercise. Need aerobic exercise 5-6 days a week for 30 minutes at a time. Smaller portions and limit total calories. Cologuard normal December 2021. Tetanus every 10 years. Advised not to smoke. Encounter for long-term current use of medication Relevant Orders Basic metabolic panel CBC and differential Hepatic function panel Pulmonary hypertension (CMS/HCC) Follow with specialists. Chronic dysfunction of right eustachian tube Continued symptoms and no improvement with flonase. Refer to ENT. Relevant Orders Ambulatory referral to ENT Other Visit Diagnoses Generalized anxiety disorder (CMS/HCC) Relevant Medications LORazepam (Ativan) 1 MG tablet Breast cancer screening by mammogram Relevant Orders Bilateral screening mammogram documented in this encounterResearch Psychiatric [id number] Miscellaneous Notes* Telephone Encounter - MASHA Cardenas - 09/13/2024 4:14 PM EST Patient called office and stated that she forgot to ask SE earlier about if she could be around a family member who has Lung Cancer and she wanted to know if she can be around that family member or if she is contagious. Per SE, patient is not contagious. Server Manager called patient and informed her , patient verbalized understanding. documented in this [facility] Telephone encounter Note* Telephone Encounter - MASHA Cardenas - 09/13/2024 4:14 PM EST Patient called office and stated that she forgot to ask SE earlier about if she could be around a family member who has Lung Cancer and she wanted to know if she can be around that family member or if she is contagious. Per SE, patient is not contagious. Server Manager called patient and informed her , patient verbalized understanding. [facility] Mindset [id number] History of Present illness Narrative* Laura Mac, DO - 09/13/2024 11:30 AM EST Images from the original note were not included. [facility] Pulmonary And Sleep Progress Note Patient - Marcela Brewer Age - 74 y.o. 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 Intolerant of nebulized Tobramycin -PICC and IV Cefepime x 10 days Sep 2023 -pick and IV Zosyn times 20 days February 2024 5. History of cardiomyopathy, improved. Follows at [facility] with last EF 50% (improved [id number]%) Chronic use of systemic steroids History of Mycobacterium szulgai s/p treatment with ID Tobacco use GERD Physical deconditioning. Anxiety disorder. PLAN Continue nebulized [place] to suppress Pseudomonas and reduced hospitalizations. So far this is been effective at reducing her exacerbations Overall lung function and physical status has seemed to decline. She is having bouts of anxiety andpanic attacks. A lot of this is stimulated when she becomes breathless. Symptoms overall consistent with end-stage lung disease She is not a transplant candidate due to active tobacco use She is having tobacco cessation efforts currently with her spouse Agree with anxiety care and treatment with PCP Continue supplemental oxygen therapy which she is using and benefiting Discussed again possibility of noninvasive positive pressure ventilation. She has some hesitancy and does not know if she would tolerate this. She is going to continue thinking about it Continue current medication regimen She will keep me closely updated of her symptoms in progress Refills provided as requested. She was given a prednisone burst to have on hand for emergency uses.She typically what is me know if she initiates this. SUBJECTIVE Mrs. Brewer presents for follow-up of her chronic hypoxic hypercapnic respiratory failure, very severe COPD, recurrent exacerbations, Pseudomonas colonization and bronchiectasis. She also has a history of and TM infection. She has had exacerbations predominantly related to her Pseudomonas over the past year. We have attempted nebulized tobramycin however she had bronchospasm as a result. She iscurrently on nebulized [place] and cycling this 28 days on and 28 days off. She has chronic steroiddependent, takes Breztri and has nebulizer machine. She continues to smoke. She does her own exercise regimen in the home and has declined pulmonary rehab. We have managed exacerbations predominantlyin the home with PICC line placement and home health care with infusions of Zosyn most recently with extended treatment and previously on cefepime prior to that. She has allergy to fluoroquinolones and therefore can not take any oral antibiotics. She reports that she is starting to get use to the [employer] [place]. She has been struggling significantly with panic attacks. She was recently started on Prozacby PCP which was recently also titrated up. Overall she is feeling fatigued and worn out. Her mucusis reduced. She has been doing her nasal rinses religiously. She has a cough in the morning which is stimulated by the 3% saline aerosols which does keep her mucus clear. She is using her mucus clearance devices, aerosols all as directed. She does get easily winded with minimal exertion. VITALS BP 158/76 Pulse 88 Ht 154.9 cm (5' 1 ) Wt 47.9 kg (105 lb 11.2 oz) LMP (LMP Unknown) [id number]% Comment: Arrived on 4Lnc of O2 BMI 19.97 kg/m Exam General: Alert, oriented, no acute distress, anxious, tearful at times. Thin HEENT: Moist mucosal membranes, no oral lesions or oral thrush, trachea midline Chest: Diminished throughout without any crackles or wheezes. Increased AP diameter. CV: Regular rate regular rhythm Extremities: No edema, erythema, distal cyanosis, clubbing Integumentary: Warm and dry. No rash or lesion Neuro: No lateralizing deficits. No tremors Meds Medications Reviewed. Lab Results PFT Results Radiology XR CHEST 2 VWS 05/28/24 HISTORY: Shortness of breath, history of cirrhosis COMPARISON: Chest x-ray 04/21/2024, 09/23/2023, 09/22/2023, CT chest 03/19/2024 FINDINGS: PA and lateral upright films obtained. Redemonstration of left upper quadrant abdominal vascular calcifications without any interval change. Aortic arch calcifications. Redemonstration of extensor upper bullae and blebs.. Bilateral flattening of the diaphragm, increased lucency, and increased AP diameter which is seen COPD. The cardiomediastinal silhouette is within normal limits. No pneumothorax or pleural effusion. No consolidation. IMPRESSION: * Extensive emphysematous changes similar to the previous exam.. LDSCT MARCH 2024 CLINICAL INFORMATION: Screening visit: Personal history of tobacco use/personal history of nicotine dependence. Lung cancer screening. The patient is a current smoker. The patient has a 28 pack year history of smoking. COMPARISON: 03/04/2023 TECHNIQUE: Low dose CT chest performed without contrast with coronal and sagittal and maximum intensity projection reconstructed images. Maximum intensity projection images generated to increase the sensitivityof pulmonary nodule detection. All CT scans at this facility use dose modulation, iterative reconstruction, and/or weight based dosing when appropriate to reduce radiation dose to as low as reasonably achievable. Automated exposure control was utilized. Computer aided detection for pulmonary nodules?was performed utilizing [employer]via software.? FINDINGS: Diagnostic quality: Satisfactory. Evaluation of [...] CT Low Dose Lung Screening [address] Laura Mac DO. [facility] Pulmonary & Critical Care Office: [phone] documented in this encounterChildren's Hospital of ColumbusDiagnosia [facility]Ann [id number] Instructions* Patient Instructions* Laura Mac DO - 09/13/2024 11:30 AM EST We discussed considering a non-invasive ventilator system that would be worn as needed and with sleep to keep carbon dioxide levels down. An example of this would be a device called the Gia. documented in this encounterShel[facility] Telephone encounter Note* Telephone Encounter - Rani Coyne - 09/12/2024 3:07 PM EST PATIENT CALLED AND STATED SHE CAN NOT TAKE THE XANAX BC IT IS TO STRONG FOR HER. SHE WANTS LORAZEPAM. AN [facility] [id number] Miscellaneous Notes* Telephone Encounter - Rani Coyne - 09/12/2024 3:07 PM EST PATIENT CALLED AND STATED SHE CAN NOT TAKE THE XANAX BC IT IS TO STRONG FOR HER. SHE WANTS LORAZEPAM. AN documented in this encounterResearch Psychiatric [id number] Miscellaneous Notes* Telephone Encounter - MASHA Cardenas - 09/10/2024 1:08 PM EST Images from the original note were not included. Server Manager called [facility] Patient Assistance Program and spoke to writer olvin Painting that our office had submitted a [facility] Patient Assistance Program Application on 07/20/2024 for [id number]. Server Manager also informed Jodie that our office received a fax from [facility] Patient Assistance on 08/30/2024, informing us that the patient's enrollment is effective until 09/04/2024. Per Jodie, patient's application that was submitted on 07/20/2024 will be reviewed and if patient qualifies the assistance will take effect. documented in this encounterSheltering [facility] Hospital01-06-2025 Telephone encounter Note* Telephone Encounter - MASHA Cardenas - 09/10/2024 1:08 PM EST Images from the original note were not included. Server Manager called [facility] Patient Assistance Program and spoke to writer olvin Painting that our office had submitted a [employer] [place] Patient Assistance Program Application on 07/20/2024 for [id number] year. Server Manager also informed Jodie that our office received a fax [facility] on 08/30/2024, informing us that the patient's enrollment is effective until 09/04/2024. Per Jodie, patient's application that was submitted on 07/20/2024 will be reviewed and if patient qualifies the assistance will take effect. [facility]12-23-[facility] Miscellaneous Notes* Telephone Encounter - MASHA Cardenas - 08/27/2024 10:31 AM EST Patient called and asked for a refill of her Albuterol HFA inhaler to be sent to [facility]. documented in this encounterSheltering Arms Hospital12-23-2024 Telephone encounter Note* Telephone Encounter - MASHA Cardenas - 08/27/2024 10:31 AM EST Patient called and asked for a refill of her Albuterol HFA inhaler to be sent to [facility]. [facility]12-18-[facility] History of Present illness Narrative* Luiz Tadeo MD - 08/22/2024 9:32 AM ESTAssociated Problem(s): LUCERO (generalized anxiety disorder) ([facility]) Increased symptoms and frequent panic attacks. Increase prozac and warned will take 2-3 weeks to notice improvement in mood. Stop ativan and try xanax PRN. * Luiz Tadeo MD - 08/22/2024 9:00 AM EST Images from the original note were not included. Subjective Patient ID: Marcela Brewer is a 74 y.o. female who presents for Panic Attack. C/o worsening anxiety and panic attacks over the past few weeks. No specific changes or new stressors. Developed panic attacks every day several times a day. Initially seemed to start when on antibiotic. Contacted pulmonology and held and resolved. Few weeks later again treated and completed treatment. Stopped 1 month ago but continued symptoms. Feels chest tight and heart racing. Severe SOB and can't catch breath. Taking ativan and not always helping. Still on prozac and lamictal daily. Review of Systems Respiratory: Negative for cough, shortness of breath and wheezing. Cardiovascular: Negative for chest pain and palpitations. Gastrointestinal: Negative for abdominal pain, diarrhea, nausea and vomiting. Genitourinary: Negative for dysuria. Objective Physical Exam Constitutional: General: She is not in acute distress. Appearance: Normal appearance. HENT: Head: Normocephalic. Right Ear: Tympanic membrane normal. Left Ear: Tympanic membrane normal. Eyes: Extraocular Movements: Extraocular movements intact. Pupils: Pupils are equal, round, and reactive to light. Cardiovascular: Rate and Rhythm: Normal rate and regular rhythm. Heart sounds: No murmur heard. No friction rub. No gallop. Pulmonary: Effort: Pulmonary effort is normal. Breath sounds: Normal breath sounds. No wheezing, rhonchi or rales. Abdominal: General: Bowel sounds are normal. There is no distension. Palpations: Abdomen is soft. Tenderness: There is no abdominal tenderness. There is no guarding or rebound. Musculoskeletal: Cervical back: Neck supple. Right lower leg: No edema. Left lower leg: No edema. Neurological: Mental Status: She is alert. Assessment/Plan Problem List Items Addressed This Visit LUCERO (generalized anxiety disorder) (CMS/HCC) - Primary Increased symptoms and frequent panic attacks. Increase prozac and warned will take 2-3 weeks to notice improvement in mood. Stop ativan and try xanax PRN. Relevant Medications ALPRAZolam (Xanax) 1 MG tablet Major depressive disorder, recurrent episode, moderate (CMS/HCC) Relevant Medications FLUoxetine (PROzac) 20 MG capsule documented in this encounterResearch Psychiatric [id number] Telephone encounter Note* Telephone Encounter - Sara Britt RN - 08/17/2024 2:37 PM EST Application is missing patient information, nothing needed from our office. Sara Britt RN August 17, 2024 2:37 PM [facility]12-13-2024 Miscellaneous Notes* Telephone Encounter - Sara Britt RN - 08/17/2024 2:37 PM EST Application is missing patient information, nothing needed from our office. Sara Britt RN August 17, 2024 2:37 PM * Telephone Encounter - Rj Melendez - 08/17/2024 2:31 PM EST [employer] application paperwork received and scanned into [employer] documented in this encounterHighland District Hospital12-13-2024 Telephone encounter Note * Telephone Encounter - Rj Melendez - 08/17/2024 2:31 PM EST [employer] application paperwork received and scanned into [employer] [facility]12-11-2024 Telephone encounter Note* Telephone Encounter - Paolo Shi - 08/15/2024 9:00 AM EST Called and spoke with Yuli at [facility], provided phone numbers for medical records and [facility] film [employer]. [facility]12-11-2024 Miscellaneous Notes* Telephone Encounter - Paolo Shi - 08/15/2024 9:00 AM EST Called and spoke with Yuli at [facility], provided phone numbers for medical records and [employer] film library. * Telephone Encounter - Kinjal Pruett - 08/14/2024 3:17 PM EST Yuli from [facility] is calling Yuki Car MD today to request images and results from 02.22.24 of the [place] [facility]. Please call Yuli for any additional questions. Fax number: [phone] Patient has been identified by name and birthdate. Duration of symptoms: N/A Person calling: Yuli Call patient at: [phone] Was an appointment scheduled: No Closing statement: Results or non-symptom based questions: Thank you for calling [facility], your call will be returned within the next business day. Thank you, Kinjal Pruett documented in this encounterHighland District Hospital12-10-2024 Telephone encounter Note * Telephone Encounter - Kinjal Pruett - 08/14/2024 3:17 PM EST Yuli from [employer] is calling Yuki Car MD today to request images and results from 02.22.24 of the [facility]. Please call Yuli for any additional questions. Fax number: [phone] Patient has been identified by name and birthdate. Duration of symptoms: N/A Person calling: Yuli Call patient at: [phone] Was an appointment scheduled: No Closing statement: Results or non-symptom based questions: Thank you for calling [facility], your call will be returned within the next business day. Thank you, Kinjal Pruett [facility]12-04-2024 Telephone encounter Note* Telephone Encounter - Edel Spivey RN - 08/08/2024 3:25 PM EST Provider application completed. Patient and provider application faxed for re-enrollment. Edel Spivey RN August 08, 2024 3:26 PM [facility]12-04-2024 Miscellaneous Notes* Telephone Encounter - Edel Spivey RN - 08/08/2024 3:25 PM EST Provider application completed. Patient and provider application faxed for re-enrollment. Edel Spivey RN August 08, 2024 3:26 PM * Telephone Encounter - Rj Melendez - 08/08/2024 2:29 PM EST [employer] paperwork received and scanned into [employer] documented in this encounterHighland District Hospital12-04-2024 Telephone encounter Note * Telephone Encounter - Rj Melendez - 08/08/2024 2:29 PM EST [employer] paperwork received and scanned into [employer] [facility]11-25-2024 Miscellaneous Notes* Telephone Encounter - MASHA Cardenas - 07/30/2024 1:32 PM EST Patient called office and stated that she is experiencing some of the same issues she was having a couple of months ago with the [facility] treatment, she stated that she feels that her shortness of breath has been worse since she's being on medication, she stated that she is feeling that she is breathing fast and needing her oxygen therapy more with everyday tasks that she didn't need before, example; eating, putting on makeup, etc. She stated that she is on 3Lnc of oxygen but never needed it for those tasks before. She would like to know if she should stop medication or what the provider recommends. Patient stated that she just finished a prednisone taper from her PCP and is currently on 5mg of Prednisone, she stated that she is also on Prozac 10 mg once daily for anxiety, patient wouldlike to know what SE recommends to do from here. Please review and advise. * Telephone Encounter - Mandie Brewer MD - 07/30/2024 1:32 PM EST Stop the antibiotics. Increase prednisone back up to 10 mg. SE out of the office this week and can make further recommendations on her return. * Telephone Encounter - MASHA Cardenas - 07/30/2024 1:32 PM EST Images from the original note were not included. Server Manager called patient and informed her per KW: Mandie Brewer MD Physician Signed 1519 Stop the antibiotics. Increase prednisone back up to 10 mg. SE out of the office this week and can make further recommendations on her return. Patient verbalized understanding. documented in this encounterSheltering Arms Hospital11-25-2024 Telephone encounter Note* Telephone Encounter - MASHA Cardenas - 07/30/2024 1:32 PM EST Patient called office and stated that she is experiencing some of the same issues she was having a couple of months ago with the [facility] treatment, she stated that she feels that her shortness of breath has been worse since she's being on medication, she stated that she is feeling that she is breathing fast and needing her oxygen therapy more with everyday tasks that she didn't need before, example; eating, putting on makeup, etc. She stated that she is on 3Lnc of oxygen but never needed it for those tasks before. She would like to know if she should stop medication or what the provider recommends. Patient stated that she just finished a prednisone taper from her PCP and is currently on 5mg of Prednisone, she stated that she is also on Prozac 10 mg once daily for anxiety, patient wouldlike to know what SE recommends to do from here. Please review and advise. [facility]11-25-[facility] Telephone encounter Note* Telephone Encounter - Mandie Brewer MD - 07/30/2024 1:32 PM EST Stop the antibiotics. Increase prednisone back up to 10 mg. SE out of the office this week and can make further recommendations on her return. [employer] Work Phone: [phone] Telephone encounter Note* Telephone Encounter - MASHA Cardenas - 07/30/2024 1:32 PM EST Images from the original note were not included. Server Manager called patient and informed her per KW: Mandie Brewer MD Physician Signed 1519 Stop the antibiotics. Increase prednisone back up to 10 mg. SE out of the office this week and can make further recommendations on her return. Patient verbalized understanding. goodideazs [id number] Telephone encounter Note* Telephone Encounter - Edel Spivey RN - 07/23/2024 4:50 PM EST Paperwork printed. Provider application completed and faxed to [facility] for PAP. Edel Spivey RN July 23, 2024 4:51 PM [facility]11-18-2024 Miscellaneous Notes* Telephone Encounter - Edel Spivey RN - 07/23/2024 4:50 PM EST Paperwork printed. Provider application completed and faxed to [facility] for PAP. Edel Spivey RN July 23, 2024 4:51 PM * Telephone Encounter - Rj Melendez - 07/23/2024 2:17 PM EST Paperwork received and scanned into [employer] documented in this encounterHighland District Hospital11-18-2024 Telephone encounter Note * Telephone Encounter - Rj Melendez - 07/23/2024 2:17 PM EST Paperwork received and scanned into [facility]11-14-2024 Miscellaneous Notes* Telephone Encounter - MASHA Cardenas - 07/19/2024 3:36 PM EST Patient came into office and stated that she needs a new Rx for Breztri sent to [facility]. Rx will need printed and faxed to [facility]. documented in this encounterSheltering Arms Hospital11-14-2024 Telephone encounter Note* Telephone Encounter - MASHA Cardenas - 07/19/2024 3:36 PM EST Patient came into office and stated that she needs a new Rx for Breztri sent to [facility]. Rx will need printed and faxed to [facility]. [facility]11-08-2024 Miscellaneous Notes* Telephone Encounter - MASHA Cardenas - 07/13/2024 8:54 AM EST Server Manager called patient and informed her that we need her to stop in the office to fill out her portion for the [facility] Patient Assistance Program, patient stated that she would try to stop in today (07/13/2024). Server Manager also asked patient if she had met with ID, patient stated that she has an appointment on 07/16/2024 with ID. documented in this encounterSheltering Arms Hospital11-08-2024 Telephone encounter Note* Telephone Encounter - MASHA Cardenas - 07/13/2024 8:54 AM EST Server Manager called patient and informed her that we need her to stop in the office to fill out her portion for the [facility] Patient Assistance Program, patient stated that she would try to stop in today (07/13/2024). Server Manager also asked patient if she had met with ID, patient stated that she has an appointment on 07/16/2024 with ID. [facility]11-01-2024 Telephone encounter Note* Telephone Encounter - Rj Melendez - 07/06/2024 10:58 AM EDT Call from patient requesting refill. Requested Prescriptions Pending Prescriptions Disp Refills empagliflozin (JARDIANCE) 10 mg tablet 90 tablet 3 Sig: Take 1 tablet by mouth once daily. Patient last seen 05/01/24 Rj Melendez [facility]11-01-2024 Miscellaneous Notes* Telephone Encounter - Rj Melendez - 07/06/2024 10:58 AM EDT Call from patient requesting refill. Requested Prescriptions Pending Prescriptions Disp Refills empagliflozin (JARDIANCE) 10 mg tablet 90 tablet 3 Sig: Take 1 tablet by mouth once daily. Patient last seen 05/01/24 Rj Melendez documented in this encounterHighland District Hospital10-31-2024 History of Present illness Narrative* Luiz Tadeo MD - 07/05/2024 1:37 PM EDTAssociated Problem(s): May-Thurner syndrome Requests closer vascular surgeon and refer. * Luiz Tadeo MD - 07/05/2024 1:37 PM EDTAssociated Problem(s): Major depressive disorder, recurrent episode, moderate (CMS/HCC) Symptoms improved with medication change and continue. * Luiz Tadeo MD - 07/05/2024 1:37 PM EDTAssociated Problem(s): LUCERO (generalized anxiety disorder) ([facility]) Symptoms improved with medication change and continue. Use ativan PRN. * Luiz Tadeo MD - 07/05/2024 1:35 PM EDTAssociated Problem(s): Bronchiectasis ([facility]) Symptoms worse and repeat prednisone. Follow with pulmonology. * Luiz Tadeo MD - 07/05/2024 1:00 PM EDT Images from the original note were not included. Subjective Patient ID: Marcela Brewer is a 74 y.o. female who presents for Follow-up (1 m) and Shortness of Breath. Follow up depression and anxiety. Added prozac in addition to lamictal last visit and mood much improved. Not as down or sad and feels happier. Interacting well with others. notices an improvement in mood. Anxiety stable. Not as stressed out or overwhelmed. Not as nervous or worry as much. Not as crews or irritable. Using ativan PRN and helps. C/o worsening SOB over the past several weeks. Increased SOB with exertion. Decreased exercise capacity and not able to exercise more than 8 minutes without SOB. Mild cough but chronic. Taking prednisone 5 mg daily and following with pulmonology. Request referral to closer vascular surgeon. Diagnosed with May Thurner syndrome and monitoring. Review of Systems Respiratory: Negative for cough, shortness of breath and wheezing. Cardiovascular: Negative for chest pain and palpitations. Gastrointestinal: Negative for abdominal pain, diarrhea, nausea and vomiting. Genitourinary: Negative for dysuria. Objective Physical Exam Constitutional: General: She is not in acute distress. Appearance: Normal appearance. HENT: Head: Normocephalic. Right Ear: Tympanic membrane normal. Left Ear: Tympanic membrane normal. Eyes: Extraocular Movements: Extraocular movements intact. Pupils: Pupils are equal, round, and reactive to light. Cardiovascular: Rate and Rhythm: Normal rate and regular rhythm. Heart sounds: No murmur heard. No friction rub. No gallop. Pulmonary: Effort: Pulmonary effort is normal. Breath sounds: Normal breath sounds. No wheezing, rhonchi or rales. Abdominal: General: Bowel sounds are normal. There is no distension. Palpations: Abdomen is soft. Tenderness: There is no abdominal tenderness. There is no guarding or rebound. Musculoskeletal: Cervical back: Neck supple. Right lower leg: No edema. Left lower leg: No edema. Neurological: Mental Status: She is alert. Assessment/Plan Problem List Items Addressed This Visit Bronchiectasis (CMS/HCC) Symptoms worse and repeat prednisone. Follow with pulmonology. Relevant Medications predniSONE (Deltasone) 20 MG tablet LUCERO (generalized anxiety disorder) (CMS/HCC) Symptoms improved with medication change and continue. Use ativan PRN. Major depressive disorder, recurrent episode, moderate (CMS/HCC) - Primary Symptoms improved with medication change and continue. May-Thurner syndrome Requests closer vascular surgeon and refer. Relevant Orders Ambulatory referral to Vascular Surgery documented in this encounterResearch Psychiatric [id number] NoteHNO ID: [id number] Author: HUGO LOTT MD Service: ? Author Type: Physician Type: Progress Notes Filed: 07/03/2024 10:58 Note Text: TELEPHONE VISIT (audio only) PROGRESS NOTE This is a telephone encounter initiated for an established patient. The patient, parent or guardian is not originating from a related Evaluation AND Management service provided within the previous 7 days nor leading to an Evaluation AND Management service or procedure within the next 24 hours or soonest available appointment. I have communicated my name and active licensure. The patient's identity and physical location were verified at the time of this visit. Either the patient or their legal service support representative has been informed of the risks and benefits of -- and alternatives to -- treatment through a remote evaluation and consents to proceed with the evaluation remotely. Marcela Brewer has consented to this telephone encounter. 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 I am not offering her surgery and do not think she will benefit from surgery. Calling today to re-discuss smoking cessation, neuro workup for degenerative disk disease Data Reviewed: Most recent labs and imaging results. 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 Unlikely to derivce clinical benefit from interventional treatment of LCIV compression. She still smokes and will still have livedo skin and bluish discoloration from relative hypoxia and O2 requirement. She likely ahs musucloskeletal etiology problems as well given history of pain w sitting/car rides in b/l LE when seated within 15min of positional changes Prn fu She is NOT interested in smoking cessation. Extensive discussion. She stated I am wasting her time and her entire visit with Dr Car was a waste of time. Apologized. Discussed at length. In final discussion of smoking cessation, she stated she will be gettting a second opinion. Advised to see one of my partners to corroborate findings of may-thurner anatomy without significant symtoms to warrant surgery, she refused and stated she will discuss with her PCP. Advised compression/elevation Total Time Spent: 21-30 minutes [facility]Select [facility] History of Present illness Narrative* Hugo Lott MD - 07/03/2024 8:28 AM EDT TELEPHONE VISIT (audio only) PROGRESS NOTE This is a telephone encounter initiated for an established patient. The patient, parent or guardianis not originating from a related Evaluation & Management service provided within the previous 7 days nor leading to an Evaluation & Management service or procedure within the next 24 hours or soonest available appointment. I have communicated my name and active licensure. The patient's identity and physical location wereverified at the time of this visit. Either the patient or their legal service support representative has been informed of the risks and benefits of -- and alternatives to -- treatment through a remote evaluation andconsents to proceed with the evaluation remotely. Marcela Brewer has consented to this telephone encounter. 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 I am not offering her surgery and do not think she will benefit from surgery. Calling today to re-discuss smoking cessation, neuro workup for degenerative disk disease Data Reviewed: Most recent labs and imaging results. 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 Unlikely to derivce clinical benefit from interventional treatment of LCIV compression. She still smokes and will still have livedo skin and bluish discoloration from relative hypoxia and O2 requirement. She likely ahs musucloskeletal etiology problems as well given history of pain w sitting/car rides in b/l LE when seated within 15min of positional changes Prn fu She is NOT interested in smoking cessation. Extensive discussion. She stated I am wasting her time and her entire visit with Dr Car was a waste of time. Apologized. Discussed at length. In finaldiscussion of smoking cessation, she stated she will be gettting a second opinion. Advised to see one of my partners to corroborate findings of may-thurner anatomy without significant symtoms to warrant surgery, she refused and stated she will discuss with her PCP. Advised compression/elevation Total Time Spent: 21-30 minutes Hugo Lott MD documented in this encounterHighland District Hospital10-24-2024 Miscellaneous Notes* Telephone Encounter - Nitesh Orellana RN - 06/28/2024 1:31 PM EDT PT. States she was approved for [employer] program 2024 documented in this encounterSheltering Arms Hospital10-24-2024 Telephone encounter Note* Telephone Encounter - Nitesh Orellana RN - 06/28/2024 1:31 PM EDT PT. States she was approved for [employer] program 2024 [employer]10-15-2024 History of Present illness Narrative* Hugo Lott MD - 06/19/2024 10:55 AM EDT Images from the original note were not included. [facility] [place] DEPARTMENT OF VASCULAR SURGERY OUTPATIENT VISIT DATE June 19, 2024 OUTPATIENT VISIT TYPE CONSULTATION SERVICE DATE: 06/19/2024 SERVICE TIME: 10:55 AM PRIMARY CARE PHYSICIAN: Luiz Tadeo MD REFERRING PROVIDER: Yuki Car [id number] [facility] [id number] Consult requested for an opinion regarding the evaluation and treatment of the above. My final impression and recommendations will be communicated back to the requesting physician by way of the shared medical record or letter via [place] mail. CHIEF COMPLAINT: May-thurner HISTORY OF PRESENT ILLNESS: Vascular consultation at the request of Dr. Yuki Car. A copy of this consultation note willbe provided to the requesting physician by way of shared Medical record or letter to requesting physician via US mail. Ms. Brewer is a 74 year old female who is seen today for May-thurner anatomy w symptoms, referred by Dr Car, leg discoloration and L>>R lower leg edema. Asked whether she feels symptoms have changed since I last saw her. Reports still with left foot and lower leg swelling. Feels like she has a lump of fluid at the lateral / posterior calf (does have significant edema on prior imaging and exam). Discussed that CT did confirm compression of left common iliac vein consistent with May Thurner syndrome. Her primary concern is worsening abnormal sensation in feet and down the back of legs, both sides. Bottom of feet feel like she's walking on bubble wrap. Increasingly uncomfortable if standing in place or sitting, if driving will have to get out and walk around. Did have lumbar DDD on 2021 x-rays. Discussed that those symptoms sound to not have vascular etiology, recommend evaluation with Neurology. Had obtained PVR last year for same symptoms, normal SASHA and ankle waveforms. . 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) Emphysema lung (HCC) GERD (gastroesophageal reflux disease) Hypertension NICM (nonischemic cardiomyopathy) (HCC) PAST SURGICAL HISTORY Procedure Laterality Date ABLATION 2013 APPENDECTOMY BX OF BREAST; INCISIONAL Bilateral HYSTERECTOMY HX REMOVAL GALLBLADDER SURGICAL throat nodes removed SOCIAL HISTORY: Social History Tobacco Use Smoking status: Every Day Types: Cigarettes Smokeless tobacco: Never Tobacco comments: 10- cigaretts daily Substance Use Topics Alcohol use: Not Currently Drug use: Never FAMILY HISTORY Problem Relation Age of Onset Arthritis Mother Heart Attack Father killed 2/3 of heart Heart Father Heart Attack Brother CABG x 4 MEDICATIONS: fluoxetine HCl (FLUOXETINE ORAL) Take 10 mg by mouth once daily. metoprolol succinate ER (TOPROL XL) 50 mg 24 hr tablet Take 1 tablet by mouth two times a day. sodium chloride (NEBUSAL) 3 % nebulizer solution INHALE CONTENTS OF 1 VIAL VIA NEBULIZER EVERY DAY fcnheesmdn-pfmqhqjp-ygjexcpkbt (BREZTRI AEROSPHERE) 160-9-4.8 mcg/actuation HFA aerosol inhaler Inhale 2 Puffs as instructed. empagliflozin (JARDIANCE) 10 mg tablet Take 1 tablet by mouth once daily. sacubitril-valsartan (ENTRESTO) 49-51 mg tablet Take [...] Take 400 Units by mouth once daily. torsemide (DEMADEX) 10 mg tablet Take 1 tablet by mouth once daily as needed. ALLERGIES: ALLERGIES Allergen Reactions Pantoprazole Other: See Comments Carbinoxamine-Pseud* Other: See Comments Cephalexin Hives Rash. Trouble breathing. Can tolerate 250mg's but not 500mg's Spoke with RN confirmed with pt: Went to ER; pt told not to take keflex again Metaxalone Other: See Comments Metoclopramide Intolerance Montelukast Other: See Comments Sertraline Swelling Ciprofloxacin Rash Erythromycin GI Upset Levofloxacin Rash, Swelling Tongue swelling REVIEW OF SYSTEM: Constitutional: No weight loss, malaise or fevers. HEENT: Negative for frequent or significant headaches Respiratory: Negative for cough, wheezing, or shortness of breath Cardiovascular: Negative for chest pain, leg swelling or palpitations Gatrointestinal: Negative for abdominal discomfort, blood in stools or black stools or change in bowel habits Genitourinary: No history of dysuria, frequency, or incontinence Musculoskeletal: Negative for joint pain or swelling, back pain or muscle pain Endocrine: Negative for cold or heat intolerance, polyuria, polydipsia and goiter Hematology/Lymphatic: Negative for prolonged bleeding, bruising easily or swollen nodes Neurologic: No history or headaches, syncope, paralysis, seizures or tremors Integumentary: Negative for lesions, rash, and itching. PHYSICAL EXAM: VITALS: Ht 5' 1.5 (1.56m) Wt 105 lb (47.6kg) BMI 19.52 kg/(m^2). General: Alert and oriented Integumentary: Normal color, no rash, no lesions. HEENT: EOM, pupils equal, round and reactive. Cardiovascular: Pulse regular. Lungs: No chest deformities or chest wall tenderness. Abdomen: Soft, non-tender, no rigidity. Extremities: No deformity, no edema or tenderness, no joint swelling or clubbing Mild b/l LE swelling, bluish discoloration fingers/toes. Neurological: Normal cognition and motor skills. Diagnostic tests reviewed for today's visit: Most recent labs Most recent imaging 03/30/24 cta abd/pel: compression LCIV by RC[facility] and spine IMPRESSION: Ms. Brewer is a 74 [facility] . PLAN and RECOMMENDATIONS: Multifcatorial etiology of LE swelling and pain. Unlikely to derivce clinical benefit from interventional treatment of LCIV compression. She still smokes and will still have livedo skin and bluish discoloration from relative hypoxia and O2 requirement. She likely ahs musucloskeletal etiology problems as well given history of pain w sitting/car rides in b/l LE when seated within 15min of positional changes Prn fu SIGNATURE: Hugo Lott MD PATIENT NAME: Marcela Brewer DATE: June 19, 2024 TIME: 10:55 AM documented in this encounterHigh[facility]10-[facility]-2024 Miscellaneous Notes* Telephone Encounter - MASHA Cardenas - 06/14/2024 3:56 PM EDT Patient called and stated that [facility] informed her that the order for her oxygen that our office faxedover on 05/25/2024 does not specify the home-fill information that the patient is requesting. Server Manager informed patient that our office would contact [facility] and see what exact information that they are needing on the order. Server Manager sent email to Mimi at [facility], awaiting her response. documented in this encounterShel[facility]10-[facility]24 Telephone encounter Note* Telephone Encounter - MASHA Cardenas - 06/14/2024 3:56 PM EDT Patient called and stated that [facility] informed her that the order for her oxygen that our office faxedover on 05/25/2024 does not specify the home-fill information that the patient is requesting. Server Manager informed patient that our office would contact [facility] and see what exact information that they are needing on the order. Server Manager sent email to Mimi bass [facility], awaiting her response. [facility]10-03-2024 Telephone encounter Note* Telephone Encounter - Amrita Kong - 06/07/2024 9:46 AM EDT Left message and mailed reminder [facility] Work Phone: [phone]) 140-614710-03-2024 Miscellaneous Notes* Telephone Encounter - Amrita Kong - 06/07/2024 9:46 AM EDT Left message and mailed reminder * Telephone Encounter - Amrita Kong - 06/06/2024 10:38 AM EDT Left message * Telephone Encounter - Amrita Kong - 06/01/2024 1:02 PM EDT Left message for patient to call office to confirm appointment on 06/19/2024 documented in this encounterHigh[facility]10-02-2024 Telephone encounter Note * Telephone Encounter - Amrita Kong - 06/06/2024 10:38 AM EDT Left message [facility]-27-[facility] Telephone encounter Note* Telephone Encounter - Amrita Kong - 06/01/2024 1:02 PM EDT Left message for patient to call office to confirm appointment on 06/19/2024 [facility]09-26-2024 Miscellaneous Notes* Telephone Encounter - Karen Torres LPN - 05/31/2024 5:05 PM EDT Pt had a phone appointment on 05/30. * Telephone Encounter - Karen Torres LPN - 05/24/2024 5:11 PM EDT Spoke with patient informed her of Dr. Car's recommendations. She states she would like to discuss her recent diagnosis and treatment options besides compressionstockings. Chart sent to our front office attendant for scheduling. * Telephone Encounter - Karen Torres LPN - 05/21/2024 1:20 PM EDT Left message for patient to return my call. * Telephone Encounter - Karen Torres LPN - 05/18/2024 11:37 AM EDT Left message for patient to return my call. * Telephone Encounter - Yuki Car MD - 05/16/2024 4:13 PM EDT I received a message that the patient was having difficulty getting through to the office for her CT results. Please let patient know that I reviewed her CT study. 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 Please assist patient in making appt (VV or phone visit is fine) we can review in more detail. documented in this encounterHighland [facility] Hospital09-26-2024 Telephone encounter Note * Telephone Encounter - Karen Torres LPN - 05/31/2024 5:05 PM EDT Pt had a phone appointment on 05/30. [facility]09-25-[facility] History of Present illness Narrative* Luiz Tadeo MD - 05/30/2024 1:56 PM EDTAssociated Problem(s): Heart failure with improved ejection fraction (HFimpEF) (CMS/HCC) Edema stable and recent echo normal. Follow with cardiology. * Luiz Tadeo MD - 05/30/2024 1:56 PM EDTAssociated Problem(s): LUCERO (generalized anxiety disorder) (CMS/HCC) Continued symptoms and add prozac in addition to lamictal. Warned will take 2-3 weeks to notice improvement in mood. Use ativan PRN. * Luiz Tadeo MD - 05/30/2024 1:55 PM EDTAssociated Problem(s): Major depressive disorder, recurrent episode, moderate (HCC) (CMS/HCC) Continued symptoms and add prozac in addition to lamictal. Warned will take 2-3 weeks to notice improvement in mood. * Luiz Tadeo MD - 05/30/2024 1:55 PM EDTAssociated Problem(s): Seasonal allergic rhinitis due to pollen Symptoms controlled with medication and continue. * Luiz Tadeo MD - 05/30/2024 1:30 PM EDT Images from the original note were not included. Subjective Patient ID: Marcela Brewer is a 74 y.o. female who presents for Follow-up (1 m). Follow up depression, anxiety, CHF, and allergies. Resumed lamictal last visit and mood unchanged. Continues to have depression and down, sad, and no motivation. Doesn't want to do things or be around others. Continued anxiety. Severe stress and not handling well. Nervous and worry all the time. Stressed out and overwhelmed. Thought racing and hard to clear mind. Using ativan PRN and mild relief.In past did well with lamictal. CHF stable. Edema controlled with medication. Mild swelling at end of day and if on feet a lot. Edema improved in am and with elevation. Allergies controlled with medication. No congestion or rhinorrhea. No MEHTA or sinus pressure. Ears not plugged or popping. Review of Systems Respiratory: Negative for cough, shortness of breath and wheezing. Cardiovascular: Negative for chest pain and palpitations. Gastrointestinal: Negative for abdominal pain, diarrhea, nausea and vomiting. Genitourinary: Negative for dysuria. Objective Physical Exam Constitutional: General: She is not in acute distress. Appearance: Normal appearance. HENT: Head: Normocephalic. Right Ear: Tympanic membrane normal. Left Ear: Tympanic membrane normal. Eyes: Extraocular Movements: Extraocular movements intact. Pupils: Pupils are equal, round, and reactive to light. Cardiovascular: Rate and Rhythm: Normal rate and regular rhythm. Heart sounds: No murmur heard. No friction rub. No gallop. Pulmonary: Effort: Pulmonary effort is normal. Breath sounds: Normal breath sounds. No wheezing, rhonchi or rales. Abdominal: General: Bowel sounds are normal. There is no distension. Palpations: Abdomen is soft. Tenderness: There is no abdominal tenderness. There is no guarding or rebound. Musculoskeletal: Cervical back: Neck supple. Right lower leg: No edema. Left lower leg: No edema. Neurological: Mental Status: She is alert. Assessment/Plan Problem List Items Addressed This Visit Heart failure with improved ejection fraction (HFimpEF) ([facility]/HCC) Edema stable and recent echo normal. Follow with cardiology. LUCERO (generalized anxiety disorder) (CMS/HCC) Continued symptoms and add prozac in addition to lamictal. Warned will take 2-3 weeks to notice improvement in mood. Use ativan PRN. Seasonal allergic rhinitis due to pollen Symptoms controlled with medication and continue. Major depressive disorder, recurrent episode, moderate (HCC) (CMS/HCC) - Primary Continued symptoms and add prozac in addition to lamictal. Warned will take 2-3 weeks to notice improvement in mood. Relevant Medications FLUoxetine (PROzac) 10 MG capsule documented in this encounterResearch Psychiatric [id number] History of Present illness Narrative* Yuki Car MD - 05/30/2024 11:15 AM EDT Heart, V[facility] Thor[facility] [place] Department of Cardiovascular Medicine TELEPHONE VISIT (audio only) PROGRESS NOTE This is a telephone encounter initiated for an established patient. The patient, parent or guardianis not originating from a related Evaluation & Management service provided within the previous 7 days nor leading to an Evaluation & Management service or procedure within the next 24 hours or soonest available appointment. I have communicated my name and active licensure. The patient's identity and physical location wereverified at the time of this visit. Either the patient or their legal service support representative has been informed of the risks and benefits of -- and alternatives to -- treatment through a remote evaluation andconsents to proceed with the evaluation remotely. Marcela Brewer has consented to this telephone encounter. Persons Present: patient Chief Complaint/Reason: follow up HPI: Ms. Brewer is a 73yo F seen for follow up regarding leg discoloration and L>>R lower leg edema. Asked whether she feels symptoms have changed since I last saw her. Reports still with left foot and lower leg swelling. Feels like she has a lump of fluid at the lateral / posterior calf (does have significant edema on prior imaging and exam). Discussed that CT did confirm compression of left common iliac vein consistent with May Thurner syndrome. Her primary concern is worsening abnormal sensation in feet and down the back of legs, both sides. Bottom of feet feel like she's walking on bubble wrap. Increasingly uncomfortable if standing in place or sitting, if driving will have to get out and walk around. Did have lumbar DDD on 2021 x-rays. Discussed that those symptoms sound to not have vascular etiology, recommend evaluation with Neurology. Had obtained PVR last year for same symptoms, normal SASHA and ankle waveforms. Data Reviewed: Most recent labs and imaging results. Assessment: Marcela Brewer is a 73 year old female seen for follow up regarding leg discoloration. 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 Now improved. 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 __HTN __COPD, emphysema __Bronchiectasis __GERD __Raynaud's phenomenon in toes -- longstanding __Tobacco use Originally seen for assessment of leg swelling and discoloration. Discussed several different factors-- Likely some residual leg edema from prior decompensation when LVEF was 10%, although currently appears compensated. She still has torsemide which she takes when weight increases. Evidence of chronic venous insufficiency with hemosiderin staining and some scattered veins. Given involvement of LLE >> RLE recommended screening for May Thurner physiology in addition to venous incompetency study to evaluate venous reflux. Additionally with evidence of acrocyanosis of the feet -- deeply purple which easily blanches back to normal color with light pressure or elevation. Seen for follow up, interval events as noted above. Plan: __Referral to Neurology and update lumbar x-rays for leg and feet paresthesias. __Referral to Vascular Surgery for May Thurner syndrome. __Follow up: as needed. Total Time Spent: 11 minutes uYki Car MD documented in this encounterHighland [facility] Hospital09-25-2024 Miscellaneous Notes* Telephone Encounter - MASHA Cardenas - 05/30/2024 9:35 AM EDT ----- Message from JULIO Morris sent at 05/29/2024 1:29 PM EDT ----- Kendra - Please notify patient. Thanks ----- Message ----- From: Mandie Brewer MD Sent: 05/29/2024 12:16 PM EDT To: Alexandra Beach RN No change. Continue to monitor symptoms at home. * Telephone Encounter - MASHA Cardenas - 05/30/2024 9:35 AM EDT Server Manager called patient and informed her of her CXR results, patient verbalized understanding. documented in this encounterSheltering [facility] Hospital09-25-2024 Telephone encounter Note* Telephone Encounter - MASHA Cardenas - 05/30/2024 9:35 AM EDT ----- Message from JULIO Morris sent at 05/29/2024 1:29 PM EDT ----- Kendra - Please notify patient. Thanks ----- Message ----- From: Mandie Brewer MD Sent: 05/29/2024 12:16 PM EDT To: Alexandra Beach RN No change. Continue to monitor symptoms at home. [facility]09-25-2024 Telephone encounter Note* Telephone Encounter - MASHA Cardenas - 05/30/2024 9:35 AM EDT Server Manager called patient and informed her of her CXR results, patient verbalized understanding. [facility]09-23-2024 Telephone encounter Note* Telephone Encounter - Rj Melendez - 05/28/2024 1:21 PM EDT Outside records received and scanned into [employer] [facility]09-23-2024 Miscellaneous Notes* Telephone Encounter - Rj Melendez - 05/28/2024 1:21 PM EDT Outside records received and scanned into [facility] documented in this encounterHighland District Hospital09-23-2024 Miscellaneous Notes* Telephone Encounter - MASHA Cardenas - 05/28/2024 12:25 PM EDT Patient called and stated that she is on her fourth week and on the second day of [facility] treatment, she stated that she feels that her shortness of breath has been worse since she's been on medication, she stated that she is feeling that she is breathing fast and needing her oxygen therapy more with everyday tasks that she didn't need before, example; eating, putting on makeup, etc. She stated that she is on 3Lnc of oxygen but never needed it for those tasks before. She would like to know ifshe should stop medication or what the provider recommends. Please review and advise. * Telephone Encounter - Mandie Brewer MD - 05/28/2024 12:25 PM EDT Obtain chest xray. She is only supposed to be on colistin for 28 days. If she is short of that thenshe can stop if she's having worsening symptoms. Needs to let her ID provider know too. Will alert Dr. Mac of this upon her return. * Telephone Encounter - MASHA Cardenas - 05/28/2024 12:25 PM EDT Images from the original note were not included. Server Manager informed patient of KW recommendations and that CXR order was placed, patient verbalized understanding. Mandie Brewer MD Physician Signed 1526 Obtain chest xray. She is only supposed to be on colistin for 28 days. If she is short of that thenshe can stop if she's having worsening symptoms. Needs to let her ID provider know too. Will alert Dr. Mac of this upon her return. documented in this encounterSheltering [facility] Hospital09-23-2024 Telephone encounter Note* Telephone Encounter - Kendra SheltonMASHA angeles - 05/28/2024 12:25 PM EDT Patient called and stated that she is on her fourth week and on the second day of [facility] treatment, she stated that she feels that her shortness of breath has been worse since she's been on medication, she stated that she is feeling that she is breathing fast and needing her oxygen therapy more with everyday tasks that she didn't need before, example; eating, putting on makeup, etc. She stated that she is on 3Lnc of oxygen but never needed it for those tasks before. She would like to know ifshe should stop medication or what the provider recommends. Please review and advise. [facility]09-23-20[facility] Telephone encounter Note* Telephone Encounter - Mandie Brewer MD - 05/28/2024 12:25 PM EDT Obtain chest xray. She is only supposed to be on colistin for 28 days. If she is short of that thenshe can stop if she's having worsening symptoms. Needs to let her ID provider know too. Will alert Dr. Mac of this upon her return. [facility] Work Phone: [phone] Telephone encounter Note* Telephone Encounter - MASHA Cardenas - 05/28/2024 12:25 PM EDT Images from the original note were not included. Server Manager informed patient of KW recommendations and that CXR order was placed, patient verbalized understanding. Mandie Brewer MD Physician Signed 1526 Obtain chest xray. She is only supposed to be on colistin for 28 days. If she is short of that thenshe can stop if she's having worsening symptoms. Needs to let her ID provider know too. Will alert Dr. Mac of this upon her return. [facility]09-20-2024 Miscellaneous Notes* Telephone Encounter - MASHA Cardenas - 05/25/2024 12:15 PM EDT Server Manager spoke to patient and informed per Dr Mac, Home O2 results reviewed. Patient qualified for3L continuous with ambulation only. Instructions provided. [facility] PRAJAPATI in [place] per patient. Patient agreeable. Faxed oxygen therapy order along with supportive documentation to [facility] ----- Message from Dr. Laura Mac DO sent at 05/25/2024 8:59 AM EDT ----- Needs new oxygen Rx for 3L continuous with ambulation only. Patient would like to switch to homefill system and needs specified on Rx with request specifically for 5 tanks please. documented in this encounterSheltering [facility] Hospital09-20-2024 Telephone encounter Note* Telephone Encounter - MASHA Cardenas - 05/25/2024 12:15 PM EDT Server Manager spoke to patient and informed per Dr Mac, Home O2 results reviewed. Patient qualified for3L continuous with ambulation only. Instructions provided. [facility] in [place] per patient. Patient agreeable. Faxed oxygen therapy order along with supportive documentation to [facility] ----- Message from Dr. Laura Mac DO sent at 05/25/2024 8:59 AM EDT ----- Needs new oxygen Rx for 3L continuous with ambulation only. Patient would like to switch to homefill system and needs specified on Rx with request specifically for 5 tanks please. [facility]09-19-2024 Telephone encounter Note* Telephone Encounter - Karen Torres LPN - 05/24/2024 5:13 PM EDT Please see encounter from 05/21 [facility]09-19-20[facility] Miscellaneous Notes* Telephone Encounter - Karen Torres LPN - 05/24/2024 5:13 PM EDT Please see encounter from 05/21 * Telephone Encounter - Papo Santiago - 05/24/2024 8:27 AM EDT May 24, 2024 Patient Name: Marcela Brewer Patient Contact Number: [phone] (home) [phone] (cell) Date of last office visit: 01/12/2024 Reason For Call:Return call (back to original nurse, or charge nurse) Patient returning Stacey's call. Physician:Roxana Car MD Requested Prescriptions No prescriptions requested or ordered in this encounter Patient was informed that non-urgent calls may be returned within the next three business days. N/A Papo Santiago documented in this encounterHighland District Hospital09-19-2024 Telephone encounter Note * Telephone Encounter - Karen Torres LPN - 05/24/2024 5:11 PM EDT Spoke with patient informed her of Dr. Car's recommendations. She states she would like to discuss her recent diagnosis and treatment options besides compressionstockings. Chart sent to our front office attendant for scheduling. [facility]09-[facility] Telephone encounter Note* Telephone Encounter - Papo Santiago - 05/24/2024 8:27 AM EDT May 24, 2024 Patient Name: Marcela Brewer Patient Contact Number: [phone] (home) [phone] (cell) Date of last office visit: 01/12/2024 Reason For Call:Return call (back to original nurse, or charge nurse) Patient returning Stacey's call. Physician:Roxana Car MD Requested Prescriptions No prescriptions requested or ordered in this encounter Patient was informed that non-urgent calls may be returned within the next three business days. N/A Papo Santiago [facility]09-16-2024 Miscellaneous Notes* Telephone Encounter - Karlie Tanner - 05/21/2024 2:14 PM EDT Patient called and wanted to know if she should begin to take azithromycin again since she has stopped the iv treatment. She also said that Dr Eladio Bryant is no longer seeing patients outside of hospital. She asked if we could send referral to [facility]anna Cam[facility] fax # [phone]. Kendra said she would take care of referral. * Telephone Encounter - Alexandra Beach RN - 05/21/2024 2:14 PM EDT Has patients Azithromycin been addressed? * Telephone Encounter - Laura Mac DO - 05/21/2024 2:14 PM EDT She should be taking this three times per week * Telephone Encounter - MASHA Cardenas - 05/21/2024 2:14 PM EDT Images from the original note were not included. Server Manager called patient and informed her that referral was faxed to Deanna Camara and the per SE: Laura Mac DO Physician Signed 900 She should be taking this three times per week Patient verbalized understanding. [facility] Telephone encounter Note* Telephone Encounter - Karlie Tanner - 05/21/2024 2:14 PM EDT Patient called and wanted to know if she should begin to take azithromycin again since she has stopped the iv treatment. She also said that Dr Eladio Bryant is no longer seeing patients outside of hospital. She asked if we could send referral to Deanna Camara fax # [phone]. Kendra said she would take care of referral. [facility]09-16-[facility] Telephone encounter Note* Telephone Encounter - Alexandra Beach RN - 05/21/2024 2:14 PM EDT Has patients Azithromycin been addressed? [facility]09-16-2024 Telephone encounter Note* Telephone Encounter - Laura Mac DO - 05/21/2024 2:14 PM EDT She should be taking this three times per week [facility]09-16-2024 Telephone encounter Note* Telephone Encounter - MASHA Cardenas - 05/21/2024 2:14 PM EDT Images from the original note were not included. Server Manager called patient and informed her that referral was faxed to Deanna Camara and the per SE: Laura Mac DO Physician Signed 900 She should be taking this three times per week Patient verbalized understanding. [facility]09-16-[facility] Telephone encounter Note* Telephone Encounter - Karen Torres LPN - 05/21/2024 1:20 PM EDT Left message for patient to return my call. [facility]09-13-2024 Telephone encounter Note* Telephone Encounter - Karen Torres LPN - 05/18/2024 11:37 AM EDT Left message for patient to return my call. [facility]09-12-2024 History of Present illness Narrative* Laura Mac, DO - 05/17/2024 10:45 AM EDT Images from the original note were not included. [facility] Progress Note Patient - Marcela Brewer Age - 74 y.o. 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 Intolerant of nebulized Tobramycin -PICC and IV Cefepime x 10 days Sep 2023 -pick and IV Zosyn times 20 days February 2024 5. History of cardiomyopathy, improved. Follows at [facility] with last EF 50% (improved [id number]%) Chronic use of systemic steroids History of Mycobacterium szulgai s/p treatment with ID Tobacco use GERD Physical deconditioning. Anxiety disorder. PLAN Will repeat home oxygen evaluation and plan on converting her prescription to home fill system withRx for 5 tanks pending repeat evaluation and confirmation of her settings She is inquiring regarding infectious disease referral as she would like further input on whether or not her Pseudomonas can be eradicated. Continue to cycle [place] 28 days on, 28 days off. Intolerant of nebulized tobramycin. Can not take oral fluoroquinolones due to allergy Persistent colonization of Pseudomonas despite extended duration of IV Zosyn. She has had 2 exacerbations requiring home IV antibiotics within the last 6 months. Continue azithromycin 3 times weekly Continue current inhaler therapy, mucus clearance device techniques with vest therapy, 3% saline aerosols Daily Continue daily exercise program Will attempt to wean down oral steroids. She will alternate 10 mg with 5 mg every other day Tobacco cessation encouraged she. She has made multiple attempts. Return to clinic in 3-4 months or earlier if needed SUBJECTIVE Mrs. Brewer presents for follow-up of her multiple respiratory diagnoses. Most recently we have had issue with recurrent exacerbations related to Pseudomonas infections. Her initial infection was back in August in attempts to treat outpatient failed. She has allergy to fluoroquinolones and attempted treatment with inhaled tobramycin lead to significant bronchospasm and this was intolerant. She was admitted and ultimately discharged home with PICC line and IV cefepime. She then had 2 more exacerbations requiring repeat PICC line placement and outpatient IV antibiotics. Most recently she completed 28 days of Zosyn and repeat culture following completion demonstrates ongoing moderate Pseudomonas. She was continuing to have cough with discolored phlegm although clinically had felt markedly improved on IV therapy. She has chronic steroid dependent related to her COPD and goal remains forher to wean down. Presently she is on 10 mg daily. She is now on her 2nd week of nebulized [place]. She reports that her mucus is clear but comes up with small little clear Perles. She is very adherent to her pulmonary regimen which includes pulmonary toilet. She does vest therapy Daily, hypertonic saline, bronchodilators, guaifenesin for pulmonaryclearance she has chronic home O2 dependent and is using and benefitting from her supplemental oxygen. She is concerned that currently her pulse dose oxygen is insufficient and frequently runs out ofbattery or she does not feel that she is getting enough air with a pulse dose system. VITALS BP 156/78 Pulse 92 Ht 154.9 cm (5' 1 ) Wt 48.3 kg (106 lb 8 oz) LMP (LMP Unknown) SpO2 90% Comment: Arrived on 3Lnc of O2 BMI 20.12 kg/m Exam General: Alert, oriented, no acute distress, nontoxic, thin HEENT: Moist mucosal membranes, no oral lesions or oral thrush, trachea midline Chest: Diminished throughout Increased AP diameter. CV: Regular rate regular rhythm Extremities: No edema, erythema, distal cyanosis, clubbing Integumentary: Warm and dry. No rash or lesion Neuro: No lateralizing deficits. No tremors Meds Medications Reviewed. Lab Results PFT Results Radiology [facility] March 2024 CLINICAL INFORMATION: Screening visit: Personal history of tobacco use/personal history of nicotine dependence. Lung cancer screening. The patient is a current smoker. The patient has a 28 pack year history of smoking. COMPARISON: 03/04/2023 TECHNIQUE: Low dose CT chest performed without contrast with coronal and sagittal and maximum intensity projection reconstructed images. Maximum intensity projection images generated to increase the sensitivityof pulmonary nodule detection. All CT scans at this facility use dose modulation, iterative reconstruction, and/or weight based dosing when appropriate to reduce radiation dose to as low as reasonably achievable. Automated exposure control was utilized. Computer aided detection for pulmonary nodules?was performed utilizing [employer] software.? FINDINGS: Diagnostic quality: Satisfactory. Evaluation of [...] CT Low Dose Lung Screening [address] Laura Mac DO. [facility] Office: [phone] documented in this encounterBar[facility] Telephone encounter Note* Telephone Encounter - Yuki Car MD - 05/16/2024 4:13 PM EDT I received a message that the patient was having difficulty getting through to the office for her CT results. Please let patient know that I reviewed her CT study. 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 Please assist patient in making appt (VV or phone visit is fine) we can review in more detail. [facility] Work Phone: [phone]) 478-723308-28-2024 History of Present illness Narrative* Luiz Tadeo MD - 05/02/2024 2:10 PM EDTAssociated Problem(s): Seasonal allergic rhinitis due to pollen Symptoms controlled with medication and continue. * Luiz Tadeo MD - 05/02/2024 2:10 PM EDTAssociated Problem(s): Major depressive disorder, recurrent episode, moderate (HCC) (CMS/HCC) Symptoms worse and resume lamictal. * Luiz Tadeo MD - 05/02/2024 2:10 PM EDTAssociated Problem(s): Heart failure with improved ejection fraction (HFimpEF) (CMS/HCC) Edema stable and recent echo normal. Follow with cardiology. * Luiz Tadeo MD - 05/02/2024 2:09 PM EDTAssociated Problem(s): LUCERO (generalized anxiety disorder) (CMS/HCC) Symptoms worse and resume lamictal. Use ativan PRN. * Luiz Tadeo MD - 05/02/2024 2:09 PM EDTAssociated Problem(s): Bronchiectasis (CMS/HCC) Symptoms worse and repeat prednisone. Follow with pulmonology. * Luiz Tadeo MD - 05/02/2024 1:15 PM EDT Images from the original note were not included. Subjective Patient ID: Marcela Brewer is a 74 y.o. female who presents for Follow-up (Er f/up ) and Depression. ER follow up from 04/21 for SOB. History of bronchiectasis and recent sputum culture showed pseudomonas. Completed antibiotics and few days later developed SOB. Increased SOB with minimal exertion. Mild cough but no worse. To ER and chest x-ray showed chronic changes. Given solu-medrol and duoneb. Discharged with doxycycline and prednisone. Not to pulmonology since but they are planning on antibiotics soon. Trying to get prior auth. Continues to have SOB. Feels like chest tight and can't take deep breath. Continued fatigue and SOB with exertion. Mood worse. Developed depression and down, sad, and crying. Upset not able to stay active and poor health. Not want to be around others. Anxiety stab le. Not as stressed out or overwhelmed. Not as nervous or worry as much. Not as crews or irritable.Using ativan PRN and helps. Following with cardiology and recent echo normal. Edema stable. Review of Systems Respiratory: Negative for cough, shortness of breath and wheezing. Cardiovascular: Negative for chest pain and palpitations. Gastrointestinal: Negative for abdominal pain, diarrhea, nausea and vomiting. Genitourinary: Negative for dysuria. Objective Physical Exam Constitutional: General: She is not in acute distress. Appearance: Normal appearance. HENT: Head: Normocephalic. Right Ear: Tympanic membrane normal. Left Ear: Tympanic membrane normal. Eyes: Extraocular Movements: Extraocular movements intact. Pupils: Pupils are equal, round, and reactive to light. Cardiovascular: Rate and Rhythm: Normal rate and regular rhythm. Heart sounds: No murmur heard. No friction rub. No gallop. Pulmonary: Effort: Pulmonary effort is normal. Breath sounds: Normal breath sounds. No wheezing, rhonchi or rales. Abdominal: General: Bowel sounds are normal. There is no distension. Palpations: Abdomen is soft. Tenderness: There is no abdominal tenderness. There is no guarding or rebound. Musculoskeletal: Cervical back: Neck supple. Right lower leg: No edema. Left lower leg: No edema. Neurological: Mental Status: She is alert. Assessment/Plan Problem List Items Addressed This Visit Bronchiectasis (CMS/HCC) Symptoms worse and repeat prednisone. Follow with pulmonology. Relevant Medications predniSONE (Deltasone) 10 MG tablet Heart failure with improved ejection fraction (HFimpEF) (CMS/HCC) Edema stable and recent echo normal. Follow with cardiology. LUCERO (generalized anxiety disorder) (CMS/HCC) Symptoms worse and resume lamictal. Use ativan PRN. Seasonal allergic rhinitis due to pollen Symptoms controlled with medication and continue. Relevant Medications fluticasone (Flonase) 50 MCG/ACT nasal spray Major depressive disorder, recurrent episode, moderate (HCC) (CMS/HCC) - Primary Symptoms worse and resume lamictal. Relevant Medications lamoTRIgine (LaMICtal) 25 MG tablet documented in this encounterResearch Psychiatric [id number] Instructions* Patient Instructions* Mima Carpio APRN.CNP - 05/01/2024 11:53 AM EDT -No medication changes today. -Your echo looks good! -Follow-up with Dr. Riggins in 6 months. documented in this encounterHigh[facility]08-27-2024 History of Present illness Narrative* Mima Carpio APRN.CNP - 05/01/2024 11:42 AM EDT Images from the original note were not included. [facility] [place] SECTION OF HEART FAILURE and CARDIAC TRANSPLANT MEDICINE OUTPATIENT VISIT DATE 05/01/2024 PRIMARY CARE PHYSICIAN: Luiz Tadeo MD ([facility]) [address] [place] [address] PRIMARY HEART FAILURE PARIMUTUEL CASHIER: Dr. Riggins CHIEF COMPLAINT: Follow-up HISTORY OF PRESENT ILLNESS: Marcela Brewer is a 74 year old male seen today by me for follow-up. He was last seen in the heart failure clinic with Dr. Riggins on 11/01/2023 and the following recommendations were made: - Sacubitril/valsartan 49/51mg BID - Continue empagliflozin 10mg - Hold MRA given hyponatremia - Continue torsemide 10mg PRN - Continue to work towards tobacco cessation (some progress made) - Continue to avoid pseudoephedrine containing products Since the last visit: -She was recently seen in the ED for exacerbation of bronchiectasis. SOB: with activity; worse Fatigue: worse Orthopnea: yes, sleeps on wedge PND: no Bendopnea: no Edema: left foot; stable Chest Pain: no Palpitations: no Dizziness/Lightheadedness: no Syncope: no Appetite: good, denies nausea, denies early satiety Dietary restrictions: does not follow Fluid Restriction: under 64 ounces Regular Exercise/ Activity: treadmill 30 minutes most days Performs daily weights: yes PAST MEDICAL HISTORY No date: Bronchiectasis ([facility]) No date: Chronic obstructive pulmonary disease (COPD) ([facility]) No date: Combined systolic and diastolic heart failure ([facility]) No date: Emphysema lung ([facility]) No date: GERD (gastroesophageal reflux disease) No date: Hypertension No date: NICM (nonischemic cardiomyopathy) ([facility]) PAST SURGICAL HISTORY 2014: ABLATION No date: APPENDECTOMY No date: BX OF BREAST; INCISIONAL; Bilateral No date: HYSTERECTOMY HX No date: REMOVAL GALLBLADDER No date: SURGICAL Comment: throat nodes removed SOCIAL HISTORY Social History [...] tablet by mouth two times a day. sodium chloride (NEBUSAL) 3 % nebulizer solution INHALE CONTENTS OF 1 VIAL VIA NEBULIZER EVERY DAY [id number] (BREZTRI AEROSPHERE) 160-9-4.8 mcg/actuation HFA aerosol inhaler Inhale 2 Puffs as instructed. torsemide (DEMADEX) 10 mg tablet Take 1 tablet by mouth once daily as needed. empagliflozin (JARDIANCE) 10 mg tablet Take 1 tablet by mouth once daily. sacubitril-valsartan (ENTRESTO) 49-51 mg tablet Take [...] by mouth once daily. REVIEW OF SYSTEMS: See HPI PHYSICAL EXAMINATION: BP 127/78 Pulse 104 Ht 154.9 cm (5' 1 ) Wt 44.6 kg (98 lb 4.8 oz) SpO2 90% BMI 18.57 kg/m Last weight on home scale: 105 lbs (stable between 103-105 lbs) Last 10 Encounter Wt Readings: Date: Wt: 01/12/2024 46.4 kg (102 lb 4.8 oz) 11/07/2023 49 kg (108 lb) 11/01/2023 49 kg (108 lb) 03/29/2023 49 kg (108 lb) 12/30/2022 47.2 kg (104 lb) 10/19/2022 49 kg (108 lb 1.6 oz) 05/04/2022 47.2 kg (104 lb) 01/26/2022 48.1 kg (106 lb) 01/26/2022 49.1 kg (108 lb 4.8 oz) 11/02/2021 48.7 kg (107 lb 6.4 oz) General appearance: No acute distress, conversant, wearing oxygen Neurologic/Psychiatric: Alert and oriented to time, place and person; mood pleasant. Gait grossly normal HEENT: PERRLA and EOM's intact, neck supple, no carotid bruits, grossly normal thyroid, normal hearing Neck: JVP normal. Trachea midline, full range of motion Heart: Rate regular. S1, S2 present. No gallop. No Rub. No murmur. Lungs: clear bilaterally. Normal work of breathing, speaking in full sentences without difficulty. Abdomen: soft, non-distended, non-tender, normal bowel sounds, no organomegaly noted Extremities: Nails no clubbing or cyanosis. Warm, peripheral pulses palpable, no BLE edema, Changesof chronic venous insufficieny to BLE Skin: Warm and dry. No rash or ulcers CARDIOVASCULAR MEDICINE TESTING: I have personally reviewed the Electrocardiogram, Chest X-ray, Laboratory Testing, and Echocardiogram. Echocardiogram: Left Ventricle: Left ventricle appears normal in size. Systolic function is low normal to mildly decreased with an ejection fraction of 50-55%. See wall score diagram for wall motion abnormalities. Right Ventricle: Systolic function is mildly reduced. Abnormal tricuspid annular plane systolic excursion. Aortic Valve: The aortic valve is trileaflet. Mitral Valve: Mitral valve structure is normal. The leaflets are mildly thickened. There is mild posterior annular calcification. There is jaron-pr-jycf regurgitation with a centrally directed jet. There is no evidence of mitral valve stenosis. Tricuspid Valve: Tricuspid valve appears to be normal. Left Ventricle Left ventricle appears normal in size. Wall thickness is normal. Systolic function is low normal tomildly decreased with an ejection fraction of 50-55%. See wall score diagram for wall motion abnormalities. Grade I diastolic dysfunction (impaired relaxation) is present. Lateral E' is 8.81 cm/s. Medial E' is 4.79 cm/s. Right Ventricle Right ventricular size appears normal. The right ventricular basal diameter is 27.0 mm. Systolic function is mildly reduced. Abnormal tricuspid annular plane systolic excursion. Abnormal systolic excursion velocity by TDI (<9.5cm/s). Left Atrium Left atrium volume index is normal. The left atrial volume index is 30.5 mL/m2. Right Atrium Right atrium is normal in size. The right atrial area is 9.8 cm2. IVC/SVC The right atrial pressure is estimated at 3 mmHg. IVC appears normal. There is normal collapse withdeep inspiration. Mitral Valve Mitral valve structure is normal. The leaflets are mildly thickened. There is mild posterior annular calcification. There is eiiiy-hw-ryvy regurgitation with a centrally directed jet. There is no evidence of mitral valve stenosis. Tricuspid Valve Tricuspid valve appears to be normal. There is trace regurgitation. There is no evidence of tricuspid valve stenosis. The right ventricular systolic pressure normal. RVSP calculated at 19 mmHg. RVSP is based on RA pressure of 3 mmHg. Aortic Valve The aortic valve is trileaflet. There is no regurgitation or stenosis. Pulmonic Valve Pulmonic valve structure is grossly normal. There is trace regurgitation. There is no evidence of pulmonic valve stenosis. Ascending Aorta The aortic root is normal in size. Pericardium There is no pericardial effusion. Study Details A complete echo was performed using complete 2D, color flow Doppler and spectral Doppler. Overall the study quality was adequate. Wall Scoring Baseline Score Index: 1.35 The following segments are hypokinetic: basal anteroseptal, basal inferoseptal, basal inferior, midanteroseptal, mid inferoseptal and mid inferior. All other segments are normal. All Measurements Exam End: 04/27/24 Labs: Component Ref Range & Units 2 mo ago Sodium 134 - 146 mmol/L 131 Low Potassium 3.5 - 5.0 mmol/L 3.4 Low Chloride 98 - 109 mmol/L 94 Low Carbon Dioxide 22 - 32 mmol/L 30 Anion Gap 5 - 15 mmol/L 7 BUN 5 - 27 mg/dL 10 Creatinine 0.40 - 1.00 mg/dL 0.50 Comment: METHOD TRACEABLE TO IDMS STANDARD Glucose 65 - 99 mg/dL 100 High Calcium 8.5 - 10.5 mg/dL 8.9 Total Protein 6.0 - 8.0 g/dL 7.2 Albumin 3.2 - 5.3 g/dL 3.7 Alkaline Phosphatase 39 - 130 U/L 53 AST 0 - 41 U/L 14 ALT 0 - 31 U/L 12 Total bilirubin 0.3 - 1.2 mg/dL 0.6 eGFR (CKD-EPI)non-race dependent >59 ml/min/1.73sq.m >90 Comment: Reported eGFR is based on the CKD-EPI 2021 equation that does not use a race coefficient. Resulting Agency [facility] Specimen Collected: 02/18/24 See [facility] for details of other cardiac testing. IMPRESSION: NYHA Functional Class: III Stage: C heart failure -HFimprovedEF/ chronic systolic heart failure / LVEF 55% (up from 10-15%) Marcela Brewer is here today for routine follow-up. At her last visit, no medication changes were made. She recently had an outside echo which is stable (CD given to GENET De La Rosa). Today, she is warm and euvolemic. Her weight is stable and she has no new or worsening cardiac complaints except for dyspnea with recent bronchiectasis exacerbation. She has not needed to take any torsemide in the past few months. She is med adherent, but does not follow a sodium restriction. Most recent labs reviewed. She is doing well on current regimen. No changes today. BB: Toprol 50 mg BID ACEi/ARB/ARNI: Entresto 100 mg BID MRA: no due to hyponatremia SGLT2i: Jardiance 10 mg Vasodilators: no Diuretic regimen: Torsemide 10 mg PRN Digoxin: no Anti-arrhythmics: no Other anti-HTN: no Device therapy: no, [place] QRS: 144 ms Sleep apnea: no Anemia: no --severe COPD home O2 dependent with EVIN bulla --prior Mycobacterium szulgai infection --tobacco dependence --reportedly RVOT PVC's s/p ablation 2013 PLAN AND RECOMMENDATIONS: -No medication changes today. -Your echo looks good! -Follow-up with Dr. Riggins in 6 months. I personally interviewed, confirmed and edited the above information as obtained by others The majority of the visit was spent counseling and/or coordinating care for the patient. Face to Face time was 40 minutes. We discussed natural history of disease, current treatment options, future potential treatment options including transplant, mechanical support, etc. We discussed diet, exercise, other non- medical management as above. Mima Carpio MSN, ACNP-BC, CHFN, [facility] Section Of Heart Failure and Cardiac Transplant Medicine [facility] [place] [facility] Desk [id number] [place] [address] documented in this encounterHighland District Hospital08-19-2024 Telephone encounter Note * Telephone Encounter - Rj Melendez - 04/23/2024 2:00 PM EDT Call from patient requesting refill. Requested Prescriptions Pending Prescriptions Disp Refills metoprolol succinate ER (TOPROL XL) 50 mg 24 hr tablet 180 tablet 3 Sig: Take 1 tablet by mouth two times a day. Patient last seen 11/01/23 Rj Melendez [facility]08-19-2024 Miscellaneous Notes* Telephone Encounter - Rj Melendez - 04/23/2024 2:00 PM EDT Call from patient requesting refill. Requested Prescriptions Pending Prescriptions Disp Refills metoprolol succinate ER (TOPROL XL) 50 mg 24 hr tablet 180 tablet 3 Sig: Take 1 tablet by mouth two times a day. Patient last seen 11/01/23 Rj Melendez documented in this encounterHighland District Hospital08-07-2024 Miscellaneous Notes* Telephone Encounter - Godwin Villa - 04/11/2024 3:27 PM EDT Malissa KELLOGG denied. Denial scanned into media tab. * Telephone Encounter - Laura Mac DO - 04/11/2024 3:27 PM EDT Please resubmit with correct dx code of bronchiectasis documented in this encounterShel[facility]08-[facility]-2024 Telephone encounter Note* Telephone Encounter - Godwin Villa - 04/11/2024 3:27 PM EDT Malissa PA denied. Denial scanned into media tab. [facility]08-07-2024 Telephone encounter Note* Telephone Encounter - Laura Mac DO - 04/11/2024 3:27 PM EDT Please resubmit with correct dx code of bronchiectasis [facility]07-29-2024 Miscellaneous Notes* Telephone Encounter - Laura Mac DO - 04/02/2024 12:24 PM EDT Attempted to reach patient at her phone number. Straight to VM and VM left that I will attempt callback later. Will need to discuss ongoing moderate pseudomonas in sputum despite 28 days of IV Zosyntherapy and sensitive species. She is intolerant of Tobramycin due to it causing significant bronchospasm. She is not able to take oral fluoroquinolones due to anaphylaxis. Will have to assess for cycled [place] via nebulization. This will need to be discussed with patient further documented in this encounterSheltering [facility] Hospital07-29-2024 Telephone encounter Note* Telephone Encounter - Laura Mac DO - 04/02/2024 12:24 PM EDT Attempted to reach patient at her phone number. Straight to VM and VM left that I will attempt callback later. Will need to discuss ongoing moderate pseudomonas in sputum despite 28 days of IV Zosyntherapy and sensitive species. She is intolerant of Tobramycin due to it causing significant bronchospasm. She is not able to take oral fluoroquinolones due to anaphylaxis. Will have to assess for cycled [place] via nebulization. This will need to be discussed with patient further goodideazs [id number] Procedure note* Adelina Villanueva, RT(R) - 03/30/2024 11:00 AM EDT Radiology Service Progress Note DATE OF SERVICE: [...] PATIENT PRESENTS WITH AN IMPLANTABLE OR ATTACHED CLEANER CARPET AND UPHOLSTERY: No ALLERGIES: Reviewed and unchanged CONTRAST ALLERGY: [...] creatinine assay has traceable calibration to isotope dilution- mass spectrometry. Refer to KDIGO guidelines for clinical interpretation. In patients with unstable renal function, e.g. those with acute kidney injury, the eGFRmay not accurately reflect actual GFR. P.O.C.T. RESULTS: POC done: Yes, See Lab Tab March 30, 2024 TREATMENT: N/A PERIPHERAL IV DATA: Ambulatory: A peripheral IV was started in the Right antecubital site with a Angio cath: 22 gauge. RADIOLOGY DEPARTMENT: CT; Exam(s) Completed: CTA Abdomen Pelvis SIGNATURE: RT Analilia(R) PATIENT NAME: Marcela Brewer DATE: March 30, 2024 TIME: 10:49 AM [facility]07-26-2024 Procedure note* Adelina Villanueva RT(R) - 03/30/2024 11:00 AM EDT Radiology Service Progress Note DATE OF SERVICE: [...] PATIENT PRESENTS WITH AN IMPLANTABLE OR ATTACHED CLEANER CARPET AND UPHOLSTERY: No ALLERGIES: Reviewed and unchanged CONTRAST ALLERGY: [...] creatinine assay has traceable calibration to isotope dilution- mass spectrometry. Refer to KDIGO guidelines for clinical interpretation. In patients with unstable renal function, e.g. those with acute kidney injury, the eGFRmay not accurately reflect actual GFR. P.O.C.T. RESULTS: POC done: Yes, See Lab Tab March 30, 2024 TREATMENT: N/A PERIPHERAL IV DATA: Ambulatory: A peripheral IV was started in the Right antecubital site with a Angio cath: 22 gauge. RADIOLOGY DEPARTMENT: CT; Exam(s) Completed: CTA Abdomen Pelvis SIGNATURE: RT Analilia(R) PATIENT NAME: Marcela Brewer DATE: March 30, 2024 TIME: 10:49 AM documented in this encounterHighland [facility] Hospital07-20-2024 Miscellaneous Notes* Telephone Encounter - Alexandra Beach RN - 03/24/2024 3:27 AM EDT Patient last seen 02-09-24 and is to RTC in 3 months. documented in this encounterShel[facility]07-20-[facility]24 Telephone encounter Note* Telephone Encounter - Alexandra Beach RN - 03/24/2024 3:27 AM EDT Patient last seen 02-09-24 and is to RTC in 3 months. [facility]07[facility] History of Present illness Narrative* Alexandra Beach RN - 03/20/2024 9:54 AM EDT Received call from [facility] and stated patients' script albuterol HFA was never filled inNovember. Prescription . Requesting a new script. Patient last seen 02-09-24 and has scheduledf/u appt on 05-17-24. Script sent. documented in this encounterSheltering [facility] Hospital07-11-2024 Telephone encounter Note* Telephone Encounter - Yuki Car MD - 03/15/2024 8:54 AM EDT Order in Epic for CTV. [facility]07-11-[facility] Miscellaneous Notes* Telephone Encounter - Yuik Car MD - 03/15/2024 8:54 AM EDT Order in [facility] for CTV. * Telephone Encounter - Frantz Becerra RN - 03/14/2024 9:[address] Car's orders, pt notified of [...] no further questions and would like to procedurewith CT Venogram. Will notify Dr. Car to place order. Pt notified front office attendant will reach out toschedule test once the order was placed. Pt in agreement. Frantz Becerra RN * Telephone Encounter - Yuki Car MD - 03/13/2024 5:33 PM EDT Please let patient know that although there [...] just stay with management with compression socks. 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 Physician:Roxana Car MD Requested Prescriptions No prescriptions requested or ordered in this encounter documented in this encounterHighland [facility] Hospital07-10-2024 Telephone encounter Note * Telephone Encounter - Frantz Becerra RN - 03/14/2024 9:[address] Car's orders, pt notified of [...] no further questions and would like to procedurewith CT Venogram. Will notify Dr. Car to place order. Pt notified front office attendant will reach out toschedule test once the order was placed. Pt in agreement. Frantz Becerra RN [facility]07-09-2024 Telephone encounter Note* Telephone Encounter - Yuki Car MD - 03/13/2024 5:33 PM EDT Please let patient know that although there [...] just stay with management with compression socks. [facility]07-09-2024 Miscellaneous Notes* Telephone Encounter - Lety Moore RN - 03/13/2024 11:58 AM EDT Patient called states her antibiotics are complete on 03/16 and would like her PICC line removed. OK per to remove once antibiotics are complete. Will fax order to [facility] documented in this encounterSheltering [facility] Hospital07-09-2024 Telephone encounter Note* Telephone Encounter - Lety Moore RN - 03/13/2024 11:58 AM EDT Patient called states her antibiotics are complete on 03/16 and would like her PICC line removed. OK per to remove once antibiotics are complete. Will fax order to [facility] History of Present illness Narrative* Lety Moore RN - 03/13/2024 11:07 AM EDT Patient called [facility] [place] Rx sent documented in this encounterSheltering [facility]07-03-2024 Telephone encounter Note* Telephone Encounter - Fariba Mike MA - 03/07/2024 4:[address] Delgado is not in the office this week but will be next week. She does periodically check her computer when out of the office but until Dr Delgado reviews the referral and lets me know if the patient needs any imaging or testing done prior to their consult, I can't schedule them. I will call patient and let them know that we did receive the referral though, and that she will hear from us as soonas it has been reviewed. [facility] [id number] Miscellaneous Notes* Telephone Encounter - Fariba Mike MA - 03/07/2024 4:[address] Delgado is not in the office this week but will be next week. She does periodically check her computer when out of the office but until Dr Delgado reviews the referral and lets me know if the patient needs any imaging or testing done prior to their consult, I can't schedule them. I will call patient and let them know that we did receive the referral though, and that she will hear from us as soonas it has been reviewed. * Telephone Encounter - Fariba Vasquez MA - 03/07/2024 4:12 PM EDT I work at [employer] not pulmonology. I'm not sure who this was meant to go to. * Telephone Encounter - Esperanza Villatoro - 03/07/2024 3:51 PM EDT This pt calling [facility] to schedule first appt with Dr Delgado, looks like she has referral from Dr Tadoe that just went over yesterday. My general service officer advised to send you a message about contacting her. I will call her back and let her know the office will be contacting her about scheduling. Thank you! documented in this encounterResearch Psychiatric [id number] Telephone encounter Note* Telephone Encounter - Fariba Vasquez MA - 03/07/2024 4:12 PM EDT I work at [employer] not pulmonology. I'm not sure who this was meant to go to. [facility] [id number] Telephone encounter Note* Telephone Encounter - Esperanza Villatoro - 03/07/2024 3:51 PM EDT This pt calling [facility] to schedule first appt with Dr Delgado, looks like she has referral from Dr Tadeo that just went over yesterday. My general service officer advised to send you a message about contacting her. I will call her back and let her know the office will be contacting her about scheduling. Thank you! 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 Physician:Roxana Car MD Requested Prescriptions No prescriptions requested or ordered in this encounter [facility]06-27-2024 Miscellaneous Notes* Telephone Encounter - Alexandra Beach RN - 03/01/2024 1:41 PM EDT Patient called nurse line and left message requesting a refill on ipratropium bromide [facility]bul[facility] [place] Please review and advise * Telephone Encounter - Laura Mac DO - 03/01/2024 1:41 PM EDT Rx sent. How is she doing on the home IV abx? * Telephone Encounter - Alexandra Beach RN - 03/01/2024 1:41 PM EDT Kendra - please call patient. Thanks * Telephone Encounter - MASHA Cardenas - 03/01/2024 1:41 PM EDT Server Manager called patient, patient stated that she is feeling much better. Patient stated that she is not showing any current symptoms and that she no longer has a productive cough. Patient would like toknow if/when she should have another sputum culture and if she should have a sooner follow up than 05/17/2024. Patient was informed a message would be sent to SE and that our office would let her know if SE would like appointment moved up or if she would like her to complete another sputum culture.Please review and advise. * Telephone Encounter - Laura Mac DO - 03/01/2024 1:41 PM EDT Sputum culture in the week after she finishes antibiotics please. Can keep that appt for now but reassess as we go * Telephone Encounter - MASHA Cardenas - 03/01/2024 1:41 PM EDT Server Manager called and left voicemail for patient informing her of 's recommendations. Placed order for sputum culture. documented in this encounterSheltering [facility] Hospital06-27-2024 Telephone encounter Note* Telephone Encounter - Alexandra Beach RN - 03/01/2024 1:41 PM EDT Patient called nurse line and left message requesting a refill on ipratropium bromide for nebulizerto [facility] [place] Please review and advise [facility] Telephone encounter Note* Telephone Encounter - Laura Mac DO - 03/01/2024 1:41 PM EDT Rx sent. How is she doing on the home IV abx? [facility] Telephone encounter Note* Telephone Encounter - Alexandra Beach RN - 03/01/2024 1:41 PM EDT Kendra - please call patient. Thanks [facility]06-27-[facility] Telephone encounter Note* Telephone Encounter - MASHA Cardenas - 03/01/2024 1:41 PM EDT Server Manager called patient, patient stated that she is feeling much better. Patient stated that she is not showing any current symptoms and that she no longer has a productive cough. Patient would like toknow if/when she should have another sputum culture and if she should have a sooner follow up than 05/17/2024. Patient was informed a message would be sent to SE and that our office would let her know if SE would like appointment moved up or if she would like her to complete another sputum culture.Please review and advise. [facility]06[facility] Telephone encounter Note* Telephone Encounter - Laura Mac DO - 03/01/2024 1:41 PM EDT Sputum culture in the week after she finishes antibiotics please. Can keep that appt for now but reassess as we go [facility]06[facility] Telephone encounter Note* Telephone Encounter - MASHA Cardenas - 03/01/2024 1:41 PM EDT Server Manager called and left voicemail for patient informing her of SE's recommendations. Placed order for sputum culture. [facility] History of Present illness Narrative* Alexandra Beach RN - 02/17/2024 7:21 AM EDT FAXED LAB ORDER, PHYSICIAN OFFICE NOTE, PICC LINE INFO AND FLUSH ORDERS TO [employer] PHONE: [phone] FAX: [phone] [facility] PHONE: [phone] [email or web address] documented in this encounterSheltering Arms Hospital06-11-2024 History of Present illness Narrative* Laura Mac DO - 02/14/2024 2:49 PM EDT Setting up patient with PICC line and Zosyn. Previously tolerated. Acute exacerbation of bronchiectasis with pneumonia and hemoptysis. Will need 28 days of therapy for attempt at irradication. documented in this encounterSheltering Arms Hospital06-11-2024 Miscellaneous Notes* Telephone Encounter - MASHA Cardenas - 02/14/2024 8:12 AM EDT ----- Message from Laura Mac DO sent at 02/14/2024 7:58 AM EDT ----- Attempted to reach patient to follow up on progress. Kendra, could you try to reach out to her today for an update on her symptoms? If not improved will need to see if IR can place PICC line outpatient and see about arranging cefepime x 28 days. * Telephone Encounter - MASHA Cardenas - 02/14/2024 8:12 AM EDT Server Manager left voicemail for patient, need to obtain updated symptoms and inform SE. Server Manager requested patient call our office back at her earliest convenience. * Telephone Encounter - MASHA Cardenas - 02/14/2024 8:12 AM EDT Images from the original note were not included. Patient called back and left voicemail to return call. * Telephone Encounter - MASHA Cardenas - 02/14/2024 8:12 AM EDT Server Manager called patient back and left voicemail returning patient's call. Asked that patient call ouroffice back at her earliest convenience. * Telephone Encounter - Alexandra Beach RN - 02/14/2024 8:12 AM EDT Server Manager spoke to patient on 02-14-24 and informed of need for PICC line and IV antibiotics. Orders placed. Patient agreeable documented in this encounterSheltering [facility] Hospital06-11-2024 Telephone encounter Note* Telephone Encounter - MASHA Cardenas - 02/14/2024 8:12 AM EDT ----- Message from Laura Mac DO sent at 02/14/2024 7:58 AM EDT ----- Attempted to reach patient to follow up on progress. Kendra, could you try to reach out to her today for an update on her symptoms? If not improved will need to see if IR can place PICC line outpatient and see about arranging cefepime x 28 days. [facility] Telephone encounter Note* Telephone Encounter - MASHA Cardenas - 02/14/2024 8:12 AM EDT Server Manager left voicemail for patient, need to obtain updated symptoms and inform SE. Server Manager requested patient call our office back at her earliest convenience. [facility] Telephone encounter Note* Telephone Encounter - MASHA Cardenas - 02/14/2024 8:12 AM EDT Images from the original note were not included. Patient called back and left voicemail to return call. [facility] Telephone encounter Note* Telephone Encounter - MASHA Cardenas - 02/14/2024 8:12 AM EDT Server Manager called patient back and left voicemail returning patient's call. Asked that patient call ouroffice back at her earliest convenience. [facility] Telephone encounter Note* Telephone Encounter - Alexandra Beach RN - 02/14/2024 8:12 AM EDT Server Manager spoke to patient on 02-14-24 and informed of need for PICC line and IV antibiotics. Orders placed. Patient agreeable goodideazs [id number] History of Present illness Narrative* Laura Mac, DO - 02/09/2024 11:00 AM EDT Images from the original note were not included. [facility] Pulmonary And Sleep Progress Note Patient - Marcela Brewer Age - 73 y.[facility]. 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 Intolerant of nebulized Tobramycin -PICC and IV Cefepime x 10 days Sep 2023 5. History of cardiomyopathy, improved. Follows at [facility] with last EF 50% (improved zeeg09-76%) Chronic use of systemic steroids History of Mycobacterium szulgai s/p treatment with ID Tobacco use GERD Physical deconditioning. Anxiety disorder. PLAN Reviewed results of PFT data. Overall stable since 2018 Repeat [facility] anticipated after 03/04/24 Reviewed preliminary recent lower resp culture Continue Doxycycline for now. Has not been able to wean down prednisone to 10mg and 5mg every other day. Remains on 10mg daily Continue Breztri with spacer BID and scheduled aerosols High protein calorie dense diet She is up to date on routine vaccination Follow up with her CC [employer] Continue vest therapy, 3% saline aerosols for pulmonary clearance. Continue mucinex BID, daliresp Patient requires new nebulizer machine due to her previous device no longer working. Specifically requires [employer] Elite for adequate delivery of her currently prescribed medications. Will send [employer] Return to clinic in 3 months or earlier if needed SUBJECTIVE Mrs. Brewer presents for follow-up of her complex pulmonary conditions. She is slowly recovered after her hospitalizations with exacerbation and Pseudomonas infection requiring PICC line and outpatient IV therapy. She is now back up to ambulating on the treadmill for 30 minutes daily. Full 10 days and finished on January. Off x 4 days then came back with low- grade fever and this time with bloating mucus. She describes it as a brownish mucus. She also had significant amount ofnasal drainage, right-sided maxillary sinus pressure, pain as well as right-sided year discomfort. She resumed doxycycline and after 1 day again of consistent use fevers have resolved. She is overallfeeling better. No further bloody mucus since the initial day after starting antibiotics. No pleuritic chest pain, wheezing, coughing more so than baseline. She does feel much better with use of 3% aerosol solution with her morning aerosol of Xopenex, Atrovent. This significantly helps to clear out her congestion. She is wondering if she can try this also at night however when she goes to lay flat she feels as though this is mostly drainage from her sinuses. She is inquiring possibly about seeing mine safety manager. We have previously discussed with her use of Claritin D and this has also been discussed with her by Cardiology. It was preferred obviously that she is off of pseudoephedrine however she is felt as though she can not leave the house if she does not take this medication as she can not breathe. VITALS BP 154/74 Pulse 94 Temp 36.4 C (97.5 F) Ht 154.9 cm (5' 1 ) Wt 48.6 kg (107 lb 3.2 oz) LMP (LMP Unknown) SpO2 96% Comment: Arrived on 3Lnc of O2 BMI 20.26 kg/m Exam General: Alert, oriented, no acute distress, nontoxic, thin HEENT: Moist mucosal membranes, no oral lesions or oral thrush, trachea midline Chest: Diminished throughout with soft low rhonchi right anterior chest. Increased AP diameter. CV: Regular rate regular [...] Kal Alcaraz MD on 09/23/2023 12:15 PM [facility] 03/04/24 CLINICAL INFORMATION: Screening visit: Personal history of tobacco use/personal history of nicotine dependence. Lung cancer screening. The patient is a current smoker. The patient has a 50 pack year history of smoking. COMPARISON: 03/02/2022 TECHNIQUE: Low dose CT chest performed without contrast with coronal and sagittal and maximum intensity projection reconstructed images. Maximum intensity projection images generated to increase the sensitivityof pulmonary nodule detection. Automated exposure control was utilized. All CT scans at this facility use dose modulation, iterative reconstruction, and/or weight based dosing when appropriate to reduce radiation dose to as low as reasonably achievable. FINDINGS: Diagnostic quality: Satisfactory Lung nodules: No suspicious pulmonary nodule. Lungs and pleural spaces: Emphysematous changes with left upper lobe volume loss and bronchiectasis, unchanged. Cavitary upper lung lesions and calcification appears stable. There is material within the dependent portion of the cavitary lesion at the left upper lobe posteriorly on axial image 24. Heart and mediastinum:No gross mass or adenopathy within the limitations of this study. Ascending aortic diameter: 3.5 cm Main pulmonary diameter: 3.4 cm Heart size: Within normal limits. Coronary calcification: Moderate Pericardial effusion: None Other findings: Stable calcifications in the left adrenal region. Stable hypodense hepatic lesions most compatible with cysts. IMPRESSION: No suspicious pulmonary nodules. Extensive emphysematous changes, areas of chronic volume loss, bronchiectasis and cavitary upper lung lesions. Moderate coronary artery calcification. Dilation of the main pulmonary artery may reflect pulmonary arterial hypertension. Lung Rads Category: 2- Benign appearance or behavior Recommendation: CT Low Dose Lung Screening [address] Laura Mac DO. [facility] Office: [phone] documented in this encounterBarre City HospitalOneSe[facility]06-04-2024 Miscellaneous Notes* Telephone Encounter - MASHA Cardenas - 02/07/2024 4:25 PM EDT Images from the original note were not included. Patient called and stated that she has an appointment on 02/09/2024 at 11am with SE, patient statedthat she's been experiencing the following symptoms since 01/14/2024 listed below, patient wants toknow what SE recommends, please review and advise: Cough - productive (dark brown with blood) Wheezing - while laying down SOB - on exertion and at rest Fevers, body aches, chills: Fever lasted 3 days (99.6) Nebulizer: sodium chloride 3 % nebulizer solution, levalbuterol (XOPENEX) 1.25 mg/3 mL nebulizer solution Inhaler(s): lsouwcffag-etddoueo-islzuezsmo 160-9-4.8 mcg/actuation HFA aerosol inhaler albuterol (PROVENTIL HFA;VENTOLIN HFA) 90 mcg/actuation inhaler Allergies: Pharmacy: [place], [place] Patient last seen 11/10/2023 for: Chronic hypercapnic respiratory failure Chronic hypoxic respiratory failure -Home O2 dependent 2-3 L predominantly with exertion/ sleep 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 Intolerant of nebulized Tobramycin -PICC and IV Cefepime x 10 days Sep 2023 5. History of cardiomyopathy, improved. Follows at [facility] with last EF 50% (improved qycw04-69%) Chronic use of systemic steroids History of Mycobacterium szulgai s/p treatment with ID Tobacco use GERD Physical deconditioning. Anxiety disorder. * Telephone Encounter - Laura Mac DO - 02/07/2024 4:25 PM EDT Rx sent for Doxycycline to pharmacy. Will need to go submit sputum sample at lab for culture. Orders in place. * Telephone Encounter - Alexandra Beach RN - 02/07/2024 4:25 PM EDT Server Manager spoke to patient and informed per Dr Mac, recommend patient to submit sputum sample at the lab for culture. This needs to be completed prior to starting antibiotic. Antibiotic script sent to pharmacy. Questions asked and answered to patient satisfaction. Patient agreeable documented in this encounterShel[facility]06-04-2024 Telephone encounter Note* Telephone Encounter - MASHA Cardenas - 02/07/2024 4:25 PM EDT Images from the original note were not included. Patient called and stated that she has an appointment on 02/09/2024 at 11am with SE, patient statedthat she's been experiencing the following symptoms since 01/14/2024 listed below, patient wants toknow what SE recommends, please review and advise: Cough - productive (dark brown with blood) Wheezing - while laying down SOB - on exertion and at rest Fevers, body aches, chills: Fever lasted 3 days (99.6) Nebulizer: sodium chloride 3 % nebulizer solution, levalbuterol (XOPENEX) 1.25 mg/3 mL nebulizer solution Inhaler(s): nncvylxheh-amdqrklk-helvcmrvat 160-9-4.8 mcg/actuation HFA aerosol inhaler albuterol (PROVENTIL HFA;VENTOLIN HFA) 90 mcg/actuation inhaler Allergies: Pharmacy: [place], [place] Patient last seen 11/10/2023 for: Chronic hypercapnic respiratory failure Chronic hypoxic respiratory failure -Home O2 dependent 2-3 L predominantly with exertion/ sleep 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 Intolerant of nebulized Tobramycin -PICC and IV Cefepime x 10 days Sep 2023 5. History of cardiomyopathy, improved. Follows at [facility] with last EF 50% (improved ldia59-54%) Chronic use of systemic steroids History of Mycobacterium szulgai s/p treatment with ID Tobacco use GERD Physical deconditioning. Anxiety disorder. [facility]06-04-2024 Telephone encounter Note* Telephone Encounter - Laura Mac DO - 02/07/2024 4:25 PM EDT Rx sent for Doxycycline to pharmacy. Will need to go submit sputum sample at lab for culture. Orders in place. [facility]06-04-2024 Telephone encounter Note* Telephone Encounter - Alexandra Beach RN - 02/07/2024 4:25 PM EDT Server Manager spoke to patient and informed per Dr Mac, recommend patient to submit sputum sample at the lab for culture. This needs to be completed prior to starting antibiotic. Antibiotic script sent to pharmacy. Questions asked and answered to patient satisfaction. Patient agreeable [facility]05-09-2024 History of Present illness Narrative* Yuki Car MD - 01/12/2024 11:16 AM EDT Images from the original note were not included. [facility] [place] [facility] Department of Cardiovascular Medicine SECTION [...] OF 1 VIAL VIA NEBULIZER EVERY DAY vglzueobqu-xtylfjpa-ivgmdjrmxe (BREZTRI AEROSPHERE) 160-9-4.8 mcg/actuation HFA aerosol inhaler [...] to have additional US images obtained at [facility] [place]. Objective: BP 145/69 [...] right ankle edema, mild 1-2+ pitting edema aroundthe left ankle. Mild hemosiderin staining L>R lower leg and numerous small scattered superficialveins. Labs None Imaging Visceral venous US: [facility], [address] [place] [address] Patient Name: MARCELA BREWER MR#: [id number] : 1950 Exam Date: 01/10/2024 Ordering Doctor: [...] Maximino Carrillo MD on 01/11/2024 at 14:38 Venous incompetency ultrasound: [facility], [address] [place] [address] Patient Name: MARCELA BREWER MR#: [id number] : 1950 Exam Date: 01/10/2024 Ordering Doctor: [...] chronic thrombus visualized Compressibility: Normal Flow: Normal Construction Administrator: Dist/med calf 2.5mm with 0s reflux. Tech Note: Patent varicose vein dist/med thigh 2.4mm with 0s reflux. CONCLUSION: 1. No abnormal or suspicious dilation or reflux within the superficial veins of the right and left lower extremity. 2. No appreciable deep vein thrombus. Dictated by: Marcella Limon M.D. on 01/10/2024 at 15:51 Approved by: Marcella Limon M.D. on 01/10/2024 at 15:53 Dictated By: Marcella Limon M.D. Signed By: 01/10/24 1554 R GSV junction L GSV Example image of dilated lymphatics / edema seen in left lower leg Assessment: Marcela Brewer is a 73 year old female seen for follow up regarding leg discoloration. 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 Now [...] for May Thurner physiology in addition to venousincompetency study to evaluate venous reflux. Additionally with evidence of acrocyanosis of the feet -- deeply purple which easily blanches back to normal color with light pressure or elevation. Seen for follow up. No change in symptoms. Reassured patient that arterial perfusion is normal, coloration is caused byvenous pooling. Reviewed study and visceral venous US. [...] although will not necessarily dictate need for anintervention. __Reflux study: no significant deep venous reflux or superficial venous reflux reported or seen on available images. Discussed no role for venous intervention. Recommend continued light compression socks 15-20mmHg. __Follow up: 1 year and additionally as needed. Yuki Car MD documented in this encounterHigh[facility]04-[facility] Miscellaneous Notes* Telephone Encounter - MASHA Cardenas - 12/29/2023 3:58 PM EDT Patient called requesting refills of Prednisone 10mg, 90 day supply sent to [facility] in [place]. Patient stated that her previous script has . documented in this encounterShel[facility]04-[facility] Telephone encounter Note* Telephone Encounter - MASHA Cardenas - 12/29/2023 3:58 PM EDT Patient called requesting refills of Prednisone 10mg, 90 day supply sent to [facility] in [place]. Patient stated that her previous script has . [facility]04-22-2024 History of Present illness Narrative* Alexandra Beach RN - 12/26/2023 12:45 PM EDT Received call from [facility] requesting refill on levalbuterol. Patient last seen 11-10-23 and has f/u appt scheduled for 02-09-24 in [place]. 90 day script sent with zero refills documented in this encounterSheltering [facility] Hospital03-07-2024 Telephone encounter Note* Telephone Encounter - Rj Melendez - 11/10/2023 11:28 AM EST Enrollment in the [facility] approval scanned into [employer] [facility]03-07-2024 Miscellaneous Notes* Telephone Encounter - Rj Melendez - 11/10/2023 11:28 AM EST Enrollment in the [facility] approval scanned into epic documented in this encounterHighland District Hospital03-07-2024 History of Present illness Narrative* Laura Mac, DO - 11/10/2023 10:45 AM EST Images from the original note were not included. [facility] Progress Note Patient - Marcela Brewer Age - 73 y.[facility]. 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 Intolerant of nebulized Tobramycin -PICC and IV Cefepime x 10 days Sep 2023 5. History of cardiomyopathy, improved. Follows at [facility] with last EF 50% (improved vyyl12-02%) Chronic use of systemic steroids History of Mycobacterium szulgai s/p treatment with ID Tobacco use GERD Physical deconditioning. Anxiety disorder. PLAN Low-dose screening CT scan expresses March 2024. Order in place Discussed again repeat PFT data. She would be willing to proceed. This is anticipated in 1-2 monthsafter some additional recovery time Continue Breztri, aerosol [...] smoke and has difficulty with quitting despite multipleattempts. She is here after recent hospitalization. She [...] gets worn out easily. She states she feelsthe need to nap after getting up and [...] significant interval change. Dr. Laura Mac DO. [facility] Office: [phone] documented in this encounterSheltering [facility] Hospital03-04-2024 Telephone encounter Note* Telephone Encounter - Rj Melendez - 11/07/2023 3:10 PM EST External EKG scanned and uploaded into [employer] [facility]03-04-2024 Miscellaneous Notes* Telephone Encounter - Rj Melendez - 11/07/2023 3:10 PM EST External EKG scanned and uploaded into [employer] documented in this encounterHighland District Hospital03-04-2024 Instructions* Patient Instructions* Yuki Car MD - 11/07/2023 2:09 PM EST __schedule ultrasounds __knee high 20-30mmHg compression socks __acrocyanosis: purplish color that increases with dependency (legs hanging down), decreases with leg elevation and warming --------->follow up after ultrasounds to review and see if any next steps are needed documented in this encounterHighland District Hospital03-04-2024 History of Present illness Narrative* Yuki Car MD - 11/07/2023 1:27 PM EST Images from the original note were not included. [facility] [place] [facility] Department of Cardiovascular Medicine SECTION OF VASCULAR MEDICINE OUTPATIENT VISIT DATE 11/07/2023 OUTPATIENT VISIT TYPE CONSULTATION Consult regarding: leg swelling and discoloration Consult requested by: Alex Riggins My final recommendations will be communicated back to the requesting physician by way of the sharedmedical record or by letter. Primary care physician: Luiz Tadeo MD History of present illness: Marcela Brewer is a 73 year old female who presents as New Consult PMHx significant for: __NICM with combined systolic and diastolic heart failure -- diagnosed 2 years ago, during [facility] hita valve and LVEF dropped to 10%. Now improved. 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 __HTN __COPD, emphysema __Bronchiectasis __GERD __Raynaud's phenomenon in toes -- longstanding __Tobacco use L>R ankle edema present for about 2 years. Saw PCP about 2mo before the [facility], would swell mildly but respond to being on treadmill. Had asked PCP for support socks Rx. After the [facility] event the legs became more swollen. Right [...] 1 VIAL VIA NEBULIZER EVERY DAY^Disp: ^Rfl: yghxijgxij-rsimedsh-naonnshcvi (BREZTRI AEROSPHERE) 160-9-4.8 mcg/actuation HFA aerosol inhaler^Inhale [...] smoking cigarettes. She has never used smokeless tobacco.She reports that she does not currently use [...] right ankle edema, mild 1-2+ pitting edema aroundthe left ankle. Mild hemosiderin staining L>R lower leg and small scattered superficial veins. Imaging 03/24/2023 [facility] Impression Marcela Brewer is a 73 year old female who presents as New Consult regarding leg discoloration. 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 Now [...] for May Thurner physiology in addition to venousincompetency study to evaluate venous reflux. Additionally with [...] seen with autonomic dysfunction of venules or veno- vascular denervation, in either instance leading to venous pooling of de- oxygenated and carboxyhemaglobin rich blood causing the skin to appear purple. Discoloration resolves with removal of gravitational dependence -> repositioning of the legs into supine position or elevation of legs. __Follow up: after ultrasounds to review and see if any next steps are needed Yuki Car MD documented in this encounterHighland District Hospital02-27-2024 History of Present illness Narrative* Alex Riggins MD - 11/01/2023 3:18 PM EST Images from the original note were not included. [facility] [place] [facility] SECTION OF HEART FAILURE and CARDIAC TRANSPLANT MEDICINE OUTPATIENT VISIT DATE December 07, 2023 OUTPATIENT VISIT TYPE Established Patient PRIMARY CARE PHYSICIAN: Luiz Tadeo MD ([facility]) [address] [place] [address] CHIEF COMPLAINT: Follow up NURSING INTAKE (Patient [...] s/p ablation 2013, severe NICM based on [facility] 04/2021 with LVEF in low 40's per years, who established care with me in October of 2021 as a secondopinion for a further reduction in LVEF to 10-15%, now with LV recovery to an EF > 50% on GDMT. At our initial visit, my impression was that she had already been initiated on the foundations of agood GDMT regimen by her local bottom cementer. I advised increasing to high dose sacubitril/valsartanbut this was precluded by recrudescent hyperkalemia and she has remained on a backbone of moderate dose ARNI, empagliflozin 10mg, metoprolol succinate 50mg BID, and spironolactone 25mg daily. Overallkasi has done very well to this with interval recovery in LVEF by both CMR and TTE. She has done overall well since our last visit - remains off of spironolactone due to intermittent hyponatremia but tolerating metoprolol and Entresto mid- dose. Still smoking. No other acute changes. PAST [...] Levofloxacin Rash, Swelling Tongue swelling CURRENT MEDICATIONS: shtecntmgr-czutyzfj-ttoychukla (BREZTRI AEROSPHERE) 160-9-4.8 mcg/actuation HFA aerosol inhaler^Inhale [...] population = 50. Five points is a clinicallymeaningful difference.) Physical T-Score 54.1 47.7 50.8 Mental [...] bruits, carotids have a normal upstroke, no palpablethyromegaly. Lungs: Clear to auscultation bilaterally, no wheezing [...] s/p ablation 2013, [facility] with LVEF in low 40's per years, who established care with me in October of 2021 as a a second opinion for a further reduction in LVEF to 10-15%. With intensification of her GDMT and lifestylemodification (reduction in tobacco use and reduction in use of a pseudoephedrine-containing allergymedication) she has made significant strides towards left [...] the management and care of this patient. Wediscussed natural history of disease, current treatment options, and future potential treatment options. We discussed diet, exercise, other non-medical management as above. Alex Riggins MD [facility] Section Of Heart Failure and Cardiac Transplant Medicine [facility] [place] [facility] Desk [address] [place] [address] documented in this encounterHighland District Hospital02-08-2024 History of Present illness Narrative* Alexandra Beach RN - 10/13/2023 3:42 PM EST Patient called nurse line and stated patient no longer able to receive Daliresp from [facility]. Requested script to be sent to [facility]. Patient last seen 08-18-23 and is to RTC in 3 months. Patient agreeable documented in this encounterSheltering [facility] Hospital01-17-2024 Miscellaneous Notes* Telephone Encounter - Laura Mac DO - 09/21/2023 11:52 AM EST Patient called in with difficulty tolerating Tobramycin [...] Will need admission for IV antibiotic treatment, pulmonarytoilet given failed outpatient treatment. She is agreeable. Requested that she go to [facility] or [facility] for admission. documented in this encounterSheltering Arms Hospital01-17-2024 Telephone encounter Note* Telephone Encounter - Laura Mac DO - 09/21/2023 11:52 AM EST Patient called in with difficulty tolerating Tobramycin [...] Will need admission for IV antibiotic treatment, pulmonarytoilet given failed outpatient treatment. She is agreeable. Requested that she go to [facility] or [facility] for admission. [facility]11-16-2023 Miscellaneous Notes* Telephone Encounter - Fernanda Falcon RN - 07/21/2023 8:43 AM EST [employer] re-enrollment form completed for [facility]. Faxed to . Fernanda Falcon RN July 21, 2023 8:44 AM documented in this encounterHighland District Hospital11-13-2023 Miscellaneous Notes* Telephone Encounter - Samia Rodrigues RN - 07/18/2023 4:26 PM EST Completed and faxed patient and provider portion of [facility] application. Samia Rodrigues RN July 18, 2023 4:26 PM * Telephone Encounter - Marleen Moran - 07/12/2023 9:49 AM EST Images from the original note were not included. documented in this encounterHighland District Hospital09-21-2023 Miscellaneous Notes* Telephone Encounter - Marleen Moran - 05/26/2023 3:07 PM EDT Outside labs collected on 05/24/23 scanned into [employer] for review. documented in this encounterHighland District Hospital08-22-2023 Miscellaneous Notes* Telephone Encounter - Marilin Meraz - 04/26/2023 9:24 AM EDT Call from patient requesting refill. Requested Prescriptions Pending Prescriptions Disp Refills torsemide (DEMADEX) 10 mg tablet 30 tablet 0 Sig: Take 1 tablet by mouth once daily as needed. Patient last seen 03/29/23 Marilin Meraz documented in this encounterHighland District Hospital07-03-2023 Miscellaneous Notes* Telephone Encounter - Sara Britt RN - 03/07/2023 4:02 PM EDT Images from the original note were not included. MD Bernardino Mcknight 20 minutes ago (3:41 PM) AH OK to reduce the Lasix to just as needed Socks should be removed at night and put back on in the morning Attempted to call the patient, not able to reach at this time, did leave voicemail with above information as well as nurse line for call back. Sara Britt RN March 07, 2023 4:04 PM * Telephone Encounter - Bernardino Ivan - 03/07/2023 2:[address] Riggins, patient called and said her weight is back down to 107. She is good with the compression socks but has not taken them off. She wants to know If she should still continue her medication the same as she has been taking. Thank you, bernardino documented in this encounterHighland District Hospital06-05-2023 Miscellaneous Notes* Telephone Encounter - Gordy Ibanez - 02/07/2023 10:25 AM EDT February 07, 2023 Name: Marcela Brewer Patient Contact Number: [phone] (home) [phone] (cell) Date of last office visit: 12/30/2022 Reason For Call: Other Issue: Pt said she does not think she can make her 2 testing appts on 02/17 as her has a procedure on 02/14 and he needs to drive her to her appts, she is wanting to see if she can have both tests performed at [facility] phone# [phone] Quezada's is OK w with this change tests will need to be cancelled and the orders for the US and Echo sent to [facility]. Physician: Alex Riggins MD Patient was informed that non-urgent calls may be returned within the next three business days. Yes Gordy Ibanez documented in this encounterHighland District Hospital04-27-2023 Instructions* Patient Instructions* Marti Larsen PA-C - 12/30/2022 2:52 PM EDT - for now stay off of the spironolactone - do not take the sodium tablets - blood work today - consult to endocrinology - follow-up with Dr. Riggins on 03/29 documented in this encounterHighland District Hospital04-27-2023 History of Present illness Narrative* Marti Larsen PA-C - 12/30/2022 2:09 PM EDT Images from the original note were not included. [facility] [place] [facility] SECTION OF HEART FAILURE and CARDIAC TRANSPLANT MEDICINE OUTPATIENT VISIT DATE December 30, 2022 OUTPATIENT VISIT TYPE Established Patient PRIMARY CARE PHYSICIAN: Luiz Tadeo MD ([facility]) [address] [place] [address] CHIEF COMPLAINT: low blood pressure HISTORY OF PRESENT ILLNESS: 72 year old woman with severe COPD, home O2 dependent with EVIN bulla, prior Mycobacterium szulgai infection, tobacco dependence, reportedly RVOT PVC's s/p ablation 2013, severe NICM based on [facility] 04/2021, EF 10-15% with recovery to > 50%. She was last seen by Dr. Riggins on 10/19/22: - Sacubitril/valsartan 49/51mg BID (dose increase has been precluded by hyperkalemia - recheck labstoday) - Continue spironolactone 12.5mg - Continue empagliflozin 10mg - Continue furosemide 40mg PRN - Continue to work towards tobacco cessation (some progress made) - Continue to avoid pseudoephedrine containing products - PYP, [place] amyloid labs all reassuring in January-February 2022 Patient called our office on 12/29/22: Called patient and discussed for the past 5 days since her PCP had adjusted her medications she hasbeen feeling fatigued, more SOB, can not get on her treadmill. Had been feeling well and has not been checking her BP but since not feeling well she checked her BP yesterday and today and is has been79/38, 78/36. Weight is overall stable and there [...] mcg/dose dsdv^Inhale 1 Puff as instructed twice daily.^Disp:^Rfl: lamoTRIgine (LAMICTAL) 25 mg tablet^Take 25 mg [...] 65.63 (Class II Heart Failure ) 55.21 (ClassIII Heart Failure ) PHQ-9 10/28/2021 05/03/2022 10/19/2022 Score 9 1 0 PROMIS [employer] - (T-Scores - the mean of general population = 50. Five points is a clinicallymeaningful difference.) 10/28/2021 05/03/2022 10/19/2022 Physical T-Score 47.7 [...] and/or correlation with a dedicated CT chest. Bike Designer: PSCB Transcribe Date/Time: Jan 26 2022 2:45P Dictated [...] the management and care of this patient. Wediscussed natural history of disease, current treatment options, and future potential treatment options. We discussed diet, exercise, other non-medical management as above. Marti Larsen PA-C [facility] Section Of Heart Failure and Cardiac Transplant Medicine [facility] [place] [facility] Desk [address] [place] [address] documented in this encounterHighland District Hospital04-26-2023 Miscellaneous Notes* Telephone Encounter - Fernanda Flacon RN - 12/29/2022 5:06 PM EDT Spoke with Dr. Riggins who has asked for the patient to come tomorrow 12/30/2022 at 2PM for a f/u appointment and to have labs drawn before at [facility]. Called the patient and confirmed she can come tomorrow with her . Bernardino Tanner to schedule appointment. Fernanda Falcon RN December 29, 2022 5:07 PM * Telephone Encounter - Alex Riggins MD - 12/29/2022 4:16 PM EDT Can we get her added on for Marti or Ghada tomorrow with labs - needs to be seen * Telephone Encounter - Fernanda Falcon RN - 12/29/2022 3:39 PM EDT Called patient and discussed for the past 5 days since her PCP had adjusted her medications she hasbeen feeling fatigued, more SOB, can not get on her treadmill. Had been feeling well and has not been checking her BP but since not feeling well she checked her BP yesterday and today and is has been79/38, 78/36. Weight is overall stable and there is no evidence of edema. Pt is staying hydrated. PCP started sodium tablets and increased her spironolactone to a full tablet daily. Pt is asking if the whole spironolactone should be changed. Fernanda Falcon RN December 29, 2022 3:53 PM * Telephone Encounter - Bernardino Ivan - 12/29/2022 1:17 PM EDT Her PCP told her to call re: her BP. Yesterday it was 79/38, today it is 78/36. She is SOB and tired. Please call her at [phone]. Thank you, Bernardino Electronically signed by [facility] at 12/29/2022 1:20 PM EDT documented in this encounterHighland District Hospital03-30-2023 Miscellaneous Notes* Telephone Encounter - Gordy Ibanez - 12/02/2022 4:15 PM EDT Call from patient requesting refill. Requested Prescriptions Pending Prescriptions Disp Refills sacubitril-valsartan (ENTRESTO) 49-51 mg tablet 180 tablet 3 Sig: Take 1 tablet by mouth twice daily. Patient last seen 10/19/22 Gordy Ibanez documented in this encounterHighland District Hospital03-30-2023 Miscellaneous Notes* Telephone Encounter - Gordy Ibanez - 12/02/2022 4:02 PM EDT Pt called wanting to see if there [...] here for that long.. documented in this encounterHighland District Hospital02-24-2023 Miscellaneous Notes* Telephone Encounter - Ольга Camacho Adm - 10/29/2022 1:09 PM EST Lab results received. DOS: 10/28/22. Results available for review through Care Everywhere. Thank you Ольга documented in this encounterHighland District Hospital02-14-2023 History of Present illness Narrative* Alex Riggins MD - 10/19/2022 2:01 PM EST Images from the original note were not included. [facility] [place] [facility] SECTION OF HEART FAILURE and CARDIAC TRANSPLANT MEDICINE OUTPATIENT VISIT DATE October 19, 2022 OUTPATIENT VISIT TYPE Established Patient PRIMARY CARE PHYSICIAN: Luiz Tadeo MD ([facility]) [address] [place] [address] CHIEF COMPLAINT: Routine follow-up NURSING INTAKE (Patient [...] s/p ablation 2013, severe NICM based on [facility] 04/2021 with LVEF in low 40's per years, who established care with me in October of 2021 as a secondopinion for a further reduction in LVEF to 10-15%, now with LV recovery to an EF > 50% on GDMT. At our initial visit, my impression was that she had already been initiated on the foundations of agood GDMT regimen by her local bottom cementer. I advised increasing to high dose sacubitril/valsartanbut this was precluded by recrudescent hyperkalemia and she has remained on a backbone of moderate dose ARNI, empagliflozin 10mg, metoprolol succinate 50mg BID, and spironolactone 25mg daily. Overallkasi has done very well to this with [...] mcg/dose dsdv^Inhale 1 Puff as instructed twice daily.^Disp:^Rfl: furosemide (LASIX) 40 mg tablet^Take 40 mg [...] ^Rfl: nitroglycerin (NITRO-BID) 2 % ointment^as needed. Princessud's^Disp: ^Rfl: potassium chloride (K-TAB) 10 mEq tablet^as [...] 65.63 (Class II Heart Failure ) 55.21 (ClassIII Heart Failure ) PHQ-9 10/28/2021 05/03/2022 10/19/2022 Score 9 1 0 PROMIS Global Health - (T-Scores - the mean of general population = 50. Five points is a clinicallymeaningful difference.) 10/28/2021 05/03/2022 10/19/2022 Physical T-Score 47.7 [...] bruits, carotids have a normal upstroke, no palpablethyromegaly. Lungs: Clear to auscultation bilaterally, no wheezing [...] and/or correlation with a dedicated CT chest. Bike Designer: ALEXANDREA Transcribe Date/Time: Jan 26 2022 2:45P [...] s/p ablation 2013[facility] with LVEF in low 40's per years, who established care with me in October of 2021 as a a second opinion for a further reduction in LVEF to 10-15%. With intensification of her GDMT and lifestylemodification (reduction in tobacco use and reduction in use of a pseudoephedrine-containing allergymedication) she has made significant strides towards left [...] has been precluded by hyperkalemia - recheck labstoday) - Continue spironolactone 12.5mg - Continue empagliflozin [...] the management and care of this patient. Wediscussed natural history of disease, current treatment options, and future potential treatment options. We discussed diet, exercise, other non-medical management as above. Alex Riggins MD [facility] Section Of Heart Failure and Cardiac Transplant Medicine Heart and Vascular [place] [facility] Desk J3-[address] [place] [address] documented in this encounterHighland District Hospital11-04-2022 Miscellaneous Notes* Telephone Encounter - Cecilia Donovan - 07/09/2022 9:55 AM EDT Pt called stating that she has to reapply for her Entresto. She said that she filled out her portion of the application and needs the prescriber portion filled out and sent. documented in this encounterHighland [facility] Hospital10-24-2022 Miscellaneous Notes* Telephone Encounter - Ольга Camacho Adm - 06/28/2022 5:18 PM EDT Call from pharmacy requesting refill. Requested Prescriptions Pending Prescriptions Disp Refills sacubitril-valsartan (ENTRESTO) 49-51 mg tablet 180 tablet 3 Sig: Take 1 tablet by mouth twice daily. Patient last seen 05/04/22 Ольга Camacho Adm documented in this encounterHighland District Hospital10-10-2022 Miscellaneous Notes* Telephone Encounter - Lucy Child RN - 06/14/2022 1:55 PM EDT Prescriber portion completed and faxed 06/09/2022. Jaqui Child RN June 14, 2022 1:56 PM documented in this encounterHighland District Hospital09-15-2022 Miscellaneous Notes* Telephone Encounter - Ольга Camacho Adm - 05/20/2022 9:09 AM EDT Lab order faxed as requested by pt to: [email or web address] @ [phone] Ольга documented in this encounterHighland District Hospital08-30-2022 Instructions* Patient Instructions* Alex Riggins MD - 05/04/2022 12:25 PM EDT - Overall I think you look great! I think we have a little room to control your blood pressure moreclosely but otherwise I think things are going [...] run into any issues documented in this encounterHighland District Hospital08-30-2022 History of Present illness Narrative* Alex Riggins MD - 05/04/2022 11:44 AM EDT Images from the original note were not included. Heart [facility] V[facility] [place] [facility] SECTION OF HEART FAILURE and CARDIAC TRANSPLANT MEDICINE OUTPATIENT VISIT DATE May 04, 2022 OUTPATIENT VISIT TYPE Established Patient PRIMARY CARE PHYSICIAN: Luiz Tadeo MD ([facility]) [address] [place] [address] CHIEF COMPLAINT: Routine follow-up NURSING INTAKE (Patient [...] s/p ablation 2013, severe NICM based on [facility] 04/2021 with LVEF in low 40's per years, who established care with me in October of 2021 as a secondopinion for a further reduction in LVEF to 10-15%, now with LV recovery to an EF > 50% on GDMT. At our initial visit, my impression was that she had already been initiated on the foundations of agood GDMT regimen by her local bottom cementer. I advised increasing to high dose sacubitril/valsartanbut this was precluded by recrudescent hyperkalemia and she has remained on a backbone of moderate dose ARNI, empagliflozin 10mg, metoprolol succinate 50mg BID, and spironolactone 25mg daily. Overallkasi has done very well to this with [...] mcg/dose dsdv^Inhale 1 Puff as instructed twice daily.^Disp:^Rfl: furosemide (LASIX) 40 mg tablet^Take 40 mg [...] population = 50. Five points is a clinicallymeaningful difference.) 10/28/2021 05/03/2022 Physical T-Score 47.7 54.1 [...] bruits, carotids have a normal upstroke, no palpablethyromegaly. Lungs: Distant breath sounds Heart: Regular rhythm, [...] and/or correlation with a dedicated CT chest. Bike Designer: ALEXANDREA Transcribe Date/Time: Jan 26 2022 2:45P [...] s/p ablation 2013, severe NICM based on [facility] 04/2021 with LVEF in low 40's per years, who established care with me in October of 2021 as a a second opinion for a further reduction in LVEF to 10-15%. With intensification of her GDMT and lifestylemodification (reduction in tobacco use and reduction in use of a pseudoephedrine-containing allergymedication) she has made significant strides towards left [...] the management and care of this patient. Wediscussed natural history of disease, current treatment options, and future potential treatment options. We discussed diet, exercise, other non-medical management as above. Alex Riggins MD [facility] Section Of Heart Failure and Cardiac Transplant Medicine Heart and Vascular [place] [facility] Desk J3-[address] [place] [address] documented in this encounterHighland District Hospital06-02-2022 Miscellaneous Notes* Telephone Encounter - Ольга Hernandez - 02/04/2022 1:59 PM EDT Received call from pt who reports her [...] would like a call back or a Grup[employer] message with information. Thank you Ольга documented in this encounterHighland District Hospital05-24-2022 Instructions* Patient Instructions* Alex Riggins MD - 01/26/2022 5:10 PM EDT - It was great to see you in clinic today. Preliminary review of your cardiac MRI and echocardiography show significant signs of recovery. - Let's maintain your current medications for now and plan for a repeat visit in 4 months to assessyour blood work and tolerance of these medications - If your LV function is persistently recovered and no arrhythmias have occurred on monitoring, I am OK stopping the Lifevest - Continue to work on smoking cessation - Continue to avoid the decongestant medications documented in this encounterHighland District Hospital05-24-2022 History of Present illness Narrative* Alex Riggins MD - 01/26/2022 4:26 PM EDT Images from the original note were not included. Heart and V[facility] [place] [facility] SECTION OF HEART FAILURE and CARDIAC TRANSPLANT MEDICINE OUTPATIENT VISIT DATE January 26, 2022 OUTPATIENT VISIT TYPE Established Patient PRIMARY CARE PHYSICIAN: Luiz Tadeo MD ([facility]) [address] [place] [address] CHIEF COMPLAINT: Routine follow-up NURSING INTAKE (Patient [...] s/p ablation 2013, severe NICM based on [facility] 04/2021 with LVEF in low 40's per years, who established care with nd in October of 2021 as a secondopinion for a further reduction in LVEF to 10-15%, now with some signs of early LV recovery. At our initial visit, my impression was that she had already been initiated on the foundations of agood GDMT regimen by her local bottom cementer. I advised increasing to high dose sacubitril/valsartanbut this was precluded by recrudescent hyperkalemia and [...] population = 50. Five points is a clinicallymeaningful difference.) 10/28/2021 Physical T-Score 47.7 Mental T-Score 50.8 PHYSICAL EXAMINATION: BP 116/57 (BP Site: Right Arm) Pulse 92 Ht 154.9 cm (5' 1 ) Wt 49.1 kg (108 lb 4.8 oz) [id number]% BMI 20.46 kg/m General: Well appearing, in no acute distress. Skin: No clubbing, no cyanosis. Eyes: Extra ocular movements intact Oropharynx: Teeth in good repair. Neck: No jugular venous distention, no carotid bruits, carotids have a normal upstroke, no palpablethyromegaly. Lungs: Clear to auscultation bilaterally, no wheezing [...] s/p ablation 2013, severe NICM based on [facility] 04/2021 with LVEF in low 40's per years, who established care with me in October of 2021 as a a second opinion for a further reduction in LVEF to 10-15%. With intensification of her GDMT and lifestylemodification (reduction in tobacco use and reduction in use of a pseudoephedrine-containing allergymedication) she has made significant strides towards left [...] the management and care of this patient. Wediscussed natural history of disease, current treatment options, and future potential treatment options. We discussed diet, exercise, other non-medical management as above. Alex Riggins MD [facility] Section Of Heart Failure and Cardiac Transplant Medicine Heart and Vascular [place] [facility] Desk J3-[address] [place] [address] documented in this encounterHighland District Hospital05-24-2022 History of Present illness Narrative* RT Zo(R) - 01/26/2022 12:30 PM EDT Radiology Service Progress Note PATIENT NAME: Marcela Brewer DATE OF SERVICE: January 26, 2022 TIME: 2:36 PM PATIENT IDENTITY VERIFICATION COMPLETED USING TWO (2) IDENTIFIERS: Name and Date of confirmedby patient verbally and Name and Date of confirmed by identification band. FALL SCREENING: Has the patient had 2 falls in the last year or 1 fall with injury or currently using an Ambulatory Assistive Device (Walker, Cane, Wheelchair, Crutches, etc.)? Yes, Patient High Riskfor Falls What interventions were put in place [...] 26, 2022 1:21 PM documented in this encounterHighland District Hospital05-06-2022 Miscellaneous Notes* Telephone Encounter - Fernanda Falcon RN - 01/08/2022 4:[address] Riggins spoke with the patient. Fernanda Falcon RN January 08, 2022 4:03 PM * Telephone Encounter - Fernanda Falcon RN - 01/08/2022 11:10 AM EDT Recieved a message on the nurse line from the patient at 9:26am. Patient is following up on her My Chart message from 12/31/2021. Patient stated that this upcoming Tuesday01/12/2022, she is scheduled to have an MRI locally and then the defibrillator on 01/20/2022. Patient is uncomfortable with having the defibrillator done locally. She has an upcoming MRI and f/u here at [facility] on 01/26/2022 and needs some guidance on how to proceed. Fernanda Falcon RN January 08, 2022 11:14 AM documented in this encounterHighland District Hospital03-14-2022 Miscellaneous Notes* Telephone Encounter - Lucy Paige - 11/16/2021 11:04 AM EDT Pt called stating she had labs completed on 11/12/21 (results available in care everywhere). She would like to know if she should increase her Entresto based on these results. Pt can be reached at [phone] Lucy [id number] documented in this encounterHighland District Hospital01-11-2022 Miscellaneous Notes* Telephone Encounter - Marci Corral - 09/15/2021 9:48 AM EST 09/15/2021- this patient called about getting a refill on her deliresp. She wants it sent to [email or web address] the number is [phone]. * Telephone Encounter - Lucy Ren LPN - 09/15/2021 9:48 AM EST Order printed and put in Dr Mac's box to be signed. * Telephone Encounter - Lucy Ren LPN - 09/15/2021 9:48 AM EST [facility]ed [facility] Telephone encounter Note* Telephone Encounter - Marci Corral - 09/15/2021 9:48 AM EST 09/15/2021- this patient called about getting a refill on her deliresp. She wants it sent to [email or web address] the number is [phone]. [facility]01-11-20[facility] Telephone encounter Note* Telephone Encounter - Lucy Ren LPN - 09/15/2021 9:48 AM EST Order printed and put in Dr Mac's box to be signed. [facility]01-11-2022 Telephone encounter Note* Telephone Encounter - Lucy Ren LPN - 09/15/2021 9:48 AM EST [facility]ed [facility]ments Appointment Date:09/17/2024 11:30:00 AM Scheduled Provider:Levar Braxton MD Location:[facility].Vascular Clinic Appointment Type:Vascular Follow Up (FT) [facility] Evaluation + Plan note Future Appointments Appointment Date:10/29/2024 11:00:00 AM Scheduled Provider:Levar Braxton MD Location:[facility].Vascular Clinic Appointment Type:Vascular Follow Up (FT) Future Scheduled Tests Radiology* US Lower Extremity Venous Duplex Insufficiency Bilat 09/17/24 * US PVR Lower EXT Complete Bilat 09/17/24 * CTA Abd Aorto-bilat/ iliofemoral runoff 09/17/24 [facility] Evaluation + Plan note Future Appointments Appointment Date:10/29/2024 11:00:00 AM Scheduled Provider:Levar Braxton MD Location:.Vascular Clinic Appointment Type:Vascular Follow Up (FT) [facility] Evaluation + Plan note Future Appointments Appointment Date:12/17/2024 10:45:00 AM Scheduled Provider:Levar Braxton MD Location:.Vascular Clinic Appointment Type:Vascular Follow Up (FT) Future Scheduled Tests Radiology* US Aorta, IVC, Iliac Duplex 11/13/24 [facility] evaluation + Plan note Future Appointments Appointment Date:12/13/2024 09:00:00 AM Scheduled Provider: Location:.[facility] Appointment Type:US Duplex Procedures (FT) Appointment Date:12/17/2024 10:45:00 AM Scheduled Provider:Levar Braxton MD Location:.Vascular Clinic Appointment Type:Vascular Follow Up (FT) [facility] Evaluation + Plan note Future Scheduled Tests Radiology* CTA Abdomen and Pelvis 10/19/25 * US Aorta, IVC, Iliac Duplex 10/19/25 [facility] evaluation note* Diagnosis Breast cancer screening by mammogram documented in this encounter [facility] [employer] Work Phone: evaluation note* Diagnosis Anxiety- Primary Anxiety state, unspecified documented in this encounter [facility] note* Diagnosis Cardiomyopathy, unspecified type (HCC) Chronic systolic HF (heart failure) (HCC) Chronic systolic heart failure documented in this encounter [facility] note* Diagnosis Chronic systolic HF (heart failure) (HCC)- Primary Chronic systolic heart failure Other cardiomyopathy (HCC) documented in this encounter [facility] note* Diagnosis Chronic systolic HF (heart failure) (HCC) Chronic systolic heart failure Other cardiomyopathy (HCC) documented in this encounter [facility] note* Diagnosis Chronic systolic heart failure (HCC)- Primary Chronic systolic heart failure documented in this encounter [facility] note* Diagnosis Chronic systolic (congestive) heart failure (HCC)- Primary [facility]* Diagnosis Chronic systolic HF (heart failure) (HCC)- Primary Chronic systolic heart failure Peripheral arterial disease (HCC) Peripheral vascular disease, unspecified [facility] Diagnosis Hypo-osmolality and hyponatremia- Primary Hyposmolality and/or hyponatremia Acute on chronic systolic (congestive) heart failure (HCC) [facility]* Diagnosis Hypo-osmolality and hyponatremia- Primary Hyposmolality and/or hyponatremia Cardiomyopathy, nonischemic (HCC) Other primary cardiomyopathies Chronic systolic heart failure (HCC) Chronic systolic heart failure Ventricular tachycardia (HCC) Paroxysmal ventricular tachycardia Protein-calorie malnutrition, unspecified severity (HCC) [facility]* Diagnosis Chronic systolic HF (heart failure) (HCC) Chronic systolic heart failure [facility]* Diagnosis Peripheral arterial disease (HCC) Peripheral vascular disease, unspecified Chronic systolic HF (heart failure) (HCC) Chronic systolic heart failure [facility]* Diagnosis Venous hypertension- Primary Chronic venous hypertension without complications Acrocyanosis (HCC) Other peripheral vascular disease May-Thurner syndrome Compression of vein Discoloration of skin of multiple sites of lower extremity Dyschromia, unspecified NICM (nonischemic cardiomyopathy) (HCC) Other primary cardiomyopathies [facility]* Diagnosis Chronic systolic HF (heart failure) (HCC)- Primary Chronic systolic heart failure Protein-calorie malnutrition, unspecified severity (HCC) Chronic respiratory failure with hypoxia (HCC) Chronic respiratory failure Ventricular tachycardia (HCC) Paroxysmal ventricular tachycardia [facility]* Diagnosis 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 Compression of vein Acrocyanosis (HCC) Other peripheral vascular disease Venous reflux Unspecified venous (peripheral) insufficiency [facility]* Diagnosis 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 Compression of vein [facility]* Diagnosis May-Thurner syndrome Compression of vein [facility]* Diagnosis Chronic systolic HF (heart failure) (HCC) Chronic systolic heart failure Protein-calorie malnutrition, unspecified severity (HCC) Chronic respiratory failure with hypoxia (HCC) Chronic respiratory failure Ventricular tachycardia (HCC) Paroxysmal ventricular tachycardia [facility]* Diagnosis 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 Compression of vein Paresthesia Disturbance of skin sensation DDD (degenerative disc disease), lumbar Degeneration of lumbar or lumbosacral intervertebral disc [facility]* Diagnosis 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 Compression of vein [facility]* Diagnosis 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 Compression of vein [facility]* Diagnosis Bilateral leg edema- Primary Edema Venous insufficiency Unspecified venous (peripheral) insufficiency Acrocyanosis (CMS/HCC) Other peripheral vascular disease Tinnitus of right ear- Primary Essential hypertension (CMS/HCC)- Primary Unspecified essential hypertension LUCERO (generalized anxiety disorder) ([facility]/HCC) Generalized anxiety disorder Seasonal allergic rhinitis due to pollen Gastroesophageal reflux disease without esophagitis Esophageal reflux Bronchiectasis without complication ([facility]/HCC) Heart failure with improved ejection fraction (HFimpEF) ([facility]) Chronic respiratory failure with hypoxia ([facility]/HCC) Chronic respiratory failure with hypercapnia ([facility]) Pulmonary hypertension, unspecified ([facility]) Nonischemic cardiomyopathy ([facility]) Other primary cardiomyopathies Major depressive disorder, recurrent episode, moderate ([facility]/HCC)- Primary Major depressive disorder, recurrent episode, moderate LUCERO (generalized anxiety disorder) ([facility]/HCC) Generalized anxiety disorder Bronchiectasis without complication ([facility]/HCC) Seasonal allergic rhinitis due to pollen Heart failure with improved ejection fraction (HFimpEF) ([facility]/HCC) Major depressive disorder, recurrent episode, moderate ([facility]/HCC)- Primary Major depressive disorder, recurrent episode, moderate LUCERO (generalized anxiety disorder) ([facility]/HCC) Generalized anxiety disorder Heart failure with improved ejection fraction (HFimpEF) ([facility]) Seasonal allergic rhinitis due to pollen Major depressive disorder, recurrent episode, moderate ([facility]/HCC)- Primary Major depressive disorder, recurrent episode, moderate LUCERO (generalized anxiety disorder) ([facility]/HCC) Generalized anxiety disorder Bronchiectasis without complication ([facility]/HCC) May-Thurner syndrome Compression of vein [facility]* Diagnosis Bilateral leg edema- Primary Edema Venous insufficiency Unspecified venous (peripheral) insufficiency Acrocyanosis (CMS/HCC) Other peripheral vascular disease Tinnitus of right ear- Primary Essential hypertension (CMS/HCC)- Primary Unspecified essential hypertension LUCERO (generalized anxiety disorder) (CMS/HCC) Generalized anxiety disorder Seasonal allergic rhinitis due to pollen Gastroesophageal reflux disease without esophagitis Esophageal reflux Bronchiectasis without complication ([facility]/HCC) Heart failure with improved ejection fraction (HFimpEF) ([facility]/HCC) Chronic respiratory failure with hypoxia ([facility]/HCC) Chronic respiratory failure with hypercapnia ([facility]/HCC) Pulmonary hypertension, unspecified ([facility]/HCC) Nonischemic cardiomyopathy ([facility]/HCC) Other primary cardiomyopathies Major depressive disorder, recurrent episode, moderate ([facility]/HCC)- Primary Major depressive disorder, recurrent episode, moderate LUCERO (generalized anxiety disorder) ([facility]/HCC) Generalized anxiety disorder Bronchiectasis without complication ([facility]/HCC) Seasonal allergic rhinitis due to pollen Heart failure with improved ejection fraction (HFimpEF) ([facility]) Major depressive disorder, recurrent episode, moderate ([facility]/HCC)- Primary Major depressive disorder, recurrent episode, moderate LUCERO (generalized anxiety disorder) ([facility]) Generalized anxiety disorder Heart failure with improved ejection fraction (HFimpEF) ([facility]) Seasonal allergic rhinitis due to pollen Major depressive disorder, recurrent episode, moderate ([facility]/HCC)- Primary Major depressive disorder, recurrent episode, moderate LUCERO (generalized anxiety disorder) ([facility]/HCC) Generalized anxiety disorder Bronchiectasis without complication ([facility]) May-Thurner syndrome Compression of vein Generalized anxiety disorder ([facility]) Generalized anxiety disorder documented in this encounter [facility]* Diagnosis Bilateral leg edema- Primary Edema Venous insufficiency Unspecified venous (peripheral) insufficiency Acrocyanosis ([facility]) Other peripheral vascular disease Tinnitus of right ear- Primary Essential hypertension ([facility])- Primary Unspecified essential hypertension LUCERO (generalized anxiety disorder) ([facility]) Generalized anxiety disorder Seasonal allergic rhinitis due to pollen Gastroesophageal reflux disease without esophagitis Esophageal reflux Bronchiectasis without complication ([facility]/HCC) Heart failure with improved ejection fraction (HFimpEF) ([facility]) Chronic respiratory failure with hypoxia ([facility]/HCC) Chronic respiratory failure with hypercapnia ([facility]/HCC) Pulmonary hypertension, unspecified ([facility]/HCC) Nonischemic cardiomyopathy ([facility]/HCC) Other primary cardiomyopathies Major depressive disorder, recurrent episode, moderate ([facility]/HCC)- Primary Major depressive disorder, recurrent episode, moderate LUCERO (generalized anxiety disorder) ([facility]/HCC) Generalized anxiety disorder Bronchiectasis without complication ([facility]) Seasonal allergic rhinitis due to pollen Heart failure with improved ejection fraction (HFimpEF) ([facility]) Major depressive disorder, recurrent episode, moderate ([facility])- Primary Major depressive disorder, recurrent episode, moderate LUCERO (generalized anxiety disorder) ([facility]) Generalized anxiety disorder Heart failure with improved ejection fraction (HFimpEF) ([facility]) Seasonal allergic rhinitis due to pollen Major depressive disorder, recurrent episode, moderate ([facility])- Primary Major depressive disorder, recurrent episode, moderate LUCERO (generalized anxiety disorder) ([facility] Generalized anxiety disorder Bronchiectasis without complication ([facility]) May-Thurner syndrome Compression of vein Generalized anxiety disorder ([facility]) Generalized anxiety disorder documented in this encounter [facility]* Diagnosis Major depressive disorder, recurrent episode, moderate ([facility]) ([facility]) Major depressive disorder, recurrent episode, moderate documented in this encounter [facility]* Diagnosis Bilateral leg edema- Primary Edema Venous insufficiency Unspecified venous (peripheral) insufficiency Acrocyanosis ([facility]) Other peripheral vascular disease Tinnitus of right ear- Primary Essential hypertension ([facility])- Primary Unspecified essential hypertension LUCERO (generalized anxiety disorder) ([facility]) Generalized anxiety disorder Seasonal allergic rhinitis due to pollen Gastroesophageal reflux disease without esophagitis Esophageal reflux Bronchiectasis without complication ([facility] [place] [place] Chronic respiratory failure with hypoxia ([facility] Chronic respiratory failure with hypercapnia ([facility]) Pulmonary hypertension, unspecified ([facility]) Nonischemic cardiomyopathy ([facility]) Other primary cardiomyopathies Major depressive disorder, recurrent episode, moderate ([facility])- Primary Major depressive disorder, recurrent episode, moderate LUCERO (generalized anxiety disorder) ([facility]) Generalized anxiety disorder Bronchiectasis without complication ([facility]) Seasonal allergic rhinitis due to pollen Heart failure with improved ejection fraction (HFimpEF) ([facility]) Major depressive disorder, recurrent episode, moderate ([facility])- Primary Major depressive disorder, recurrent episode, moderate LUCERO (generalized anxiety disorder) ([facility]) Generalized anxiety disorder Heart failure with improved ejection fraction (HFimpEF) ([facility]) Seasonal allergic rhinitis due to pollen Major depressive disorder, recurrent episode, moderate ([facility])- Primary Major depressive disorder, recurrent episode, moderate LUCERO (generalized anxiety disorder) ([facility]) Generalized anxiety disorder Bronchiectasis without complication ([facility]/HCC) May-Thurner syndrome Compression of vein LUCERO (generalized anxiety disorder) ([facility])- Primary Generalized anxiety disorder Major depressive disorder, recurrent episode, moderate ([facility]/HCC) Major depressive disorder, recurrent episode, moderate documented in this encounter [facility]* Diagnosis Major depressive disorder, recurrent episode, moderate (HCC) ([facility])- Primary Major depressive disorder, recurrent episode, moderate LUCERO (generalized anxiety disorder) ([facility]/HCC) Generalized anxiety disorder Bronchiectasis without complication ([facility]) Seasonal allergic rhinitis due to pollen Heart failure with improved ejection fraction (HFimpEF) ([facility]) documented in this encounter [facility]* Diagnosis Generalized anxiety disorder ([facility]) Generalized anxiety disorder documented in this encounter [facility]* Diagnosis Major depressive disorder, recurrent episode, moderate ([facility]/HCC)- Primary Major depressive disorder, recurrent episode, moderate LUCERO (generalized anxiety disorder) ([facility] Generalized anxiety disorder Heart failure with improved ejection fraction (HFimpEF) ([facility]) Seasonal allergic rhinitis due to pollen documented in this encounter [facility]* Diagnosis Chronic obstructive pulmonary disease, unspecified COPD type ([facility]) documented in this encounter [facility]* Diagnosis Bilateral leg edema- Primary Edema Venous insufficiency Unspecified venous (peripheral) insufficiency Acrocyanosis ([facility]) Other peripheral vascular disease Tinnitus of right ear- Primary Essential hypertension ([facility])- Primary Unspecified essential hypertension LUCERO (generalized anxiety disorder) ([facility]) Generalized anxiety disorder Seasonal allergic rhinitis due to pollen Gastroesophageal reflux disease without esophagitis Esophageal reflux Bronchiectasis without complication ([facility] Heart failure with improved ejection fraction (HFimpEF) ([facility]) Chronic respiratory failure with hypoxia ([facility]/HCC[facility] Chronic respiratory failure with hypercapnia ([facility]) Pulmonary hypertension, unspecified ([facility]) Nonischemic cardiomyopathy ([facility]) Other primary cardiomyopathies Major depressive disorder, recurrent episode, moderate ([facility]/HCC)- Primary Major depressive disorder, recurrent episode, moderate LUCERO (generalized anxiety disorder) ([facility]) Generalized anxiety disorder Bronchiectasis without complication ([facility]) Seasonal allergic rhinitis due to pollen Heart failure with improved ejection fraction (HFimpEF) ([facility]) Major depressive disorder, recurrent episode, moderate ([facility]/HCC)- Primary Major depressive disorder, recurrent episode, moderate LUCERO (generalized anxiety disorder) ([facility]) Generalized anxiety disorder Heart failure with improved ejection fraction (HFimpEF) ([facility]) Seasonal allergic rhinitis due to pollen Major depressive disorder, recurrent episode, moderate ([facility]/HCC)- Primary Major depressive disorder, recurrent episode, moderate LUCERO (generalized anxiety disorder) ([facility] Generalized anxiety disorder Bronchiectasis without complication ([facility] May-Thurner syndrome Compression of vein LUCERO (generalized anxiety disorder) ([facility])- Primary Generalized anxiety disorder Major depressive disorder, recurrent episode, moderate ([facility]/HCC) Major depressive disorder, recurrent episode, moderate LUCERO (generalized anxiety disorder) ([facility]) Generalized anxiety disorder documented in this encounter [facility]* Diagnosis Chronic respiratory failure with hypoxia and hypercapnia ([facility])- Primary Pulmonary nodule Other diseases of lung, not elsewhere classified Chronic obstructive pulmonary disease, unspecified COPD type ([facility]) Bronchiectasis (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) Other peripheral vascular disease Tinnitus of right ear- Primary Essential hypertension ([facility])- Primary Unspecified essential hypertension LUCERO (generalized anxiety disorder) ([facility]) Generalized anxiety disorder Seasonal allergic rhinitis due to pollen Gastroesophageal reflux disease without esophagitis Esophageal reflux Bronchiectasis without complication ([facility] Heart failure with improved ejection fraction (HFimpEF) ([facility] Chronic respiratory failure with hypoxia ([facility]) Chronic respiratory failure with hypercapnia ([facility]) Pulmonary hypertension, unspecified ([facility]) Nonischemic cardiomyopathy ([facility]) Other primary cardiomyopathies Major depressive disorder, recurrent episode, moderate ([facility]/HCC)- Primary Major depressive disorder, recurrent episode, moderate LUCERO (generalized anxiety disorder) ([facility]) Generalized anxiety disorder Bronchiectasis without complication ([facility]) Seasonal allergic rhinitis due to pollen Heart failure with improved ejection fraction (HFimpEF) ([facility]) Major depressive disorder, recurrent episode, moderate ([facility]/HCC)- Primary Major depressive disorder, recurrent episode, moderate LUCERO (generalized anxiety disorder) ([facility]) Generalized anxiety disorder Heart failure with improved ejection fraction (HFimpEF) ([facility]/HCC) Seasonal allergic rhinitis due to pollen Major depressive disorder, recurrent episode, moderate ([facility]/HCC)- Primary Major depressive disorder, recurrent episode, moderate LUCERO (generalized anxiety disorder) ([facility]/HCC) Generalized anxiety disorder Bronchiectasis without complication ([facility]/HCC) May-Thurner syndrome Compression of vein LUCERO (generalized anxiety disorder) ([facility]/HCC)- Primary Generalized anxiety disorder Major depressive disorder, recurrent episode, moderate ([facility]/HCC) Major depressive disorder, recurrent episode, moderate Medicare annual wellness visit, subsequent- Primary Generalized anxiety disorder ([facility]/HCC) Generalized anxiety disorder Major depressive disorder, recurrent episode, moderate ([facility]/HCC) Major depressive disorder, recurrent episode, moderate LUCERO (generalized anxiety disorder) ([facility]/HCC) Generalized anxiety disorder Heart failure with improved ejection fraction (HFimpEF) ([facility]) Chronic respiratory failure with hypoxia ([facility]/HCC) Chronic respiratory failure with hypercapnia ([facility]/HCC[facility] Bronchiectasis without complication ([facility]/HCC) Dyslipidemia ([facility]) Other and unspecified hyperlipidemia Encounter for long-term current use of medication Breast cancer screening by mammogram Gastroesophageal reflux disease without esophagitis Esophageal reflux Pulmonary hypertension ([facility]/HCC) Other chronic pulmonary heart diseases Nonischemic cardiomyopathy ([facility]/HCC) Other primary cardiomyopathies Chronic dysfunction of right eustachian tube documented in this encounter [facility]* Diagnosis Bilateral leg edema- Primary Edema Venous insufficiency Unspecified venous (peripheral) insufficiency Acrocyanosis ([facility]/HCC) Other peripheral vascular disease Tinnitus of right ear- Primary Essential hypertension ([facility])- Primary Unspecified essential hypertension LUCERO (generalized anxiety disorder) ([facility]) Generalized anxiety disorder Seasonal allergic rhinitis due to pollen Gastroesophageal reflux disease without esophagitis Esophageal reflux Bronchiectasis without complication ([facility]/HCC) Heart failure with improved ejection fraction (HFimpEF) ([facility]/HCC) Chronic respiratory failure with hypoxia ([facility]/HCC) Chronic respiratory failure with hypercapnia ([facility]/HCC) Pulmonary hypertension, unspecified ([facility]/HCC) Nonischemic cardiomyopathy ([facility]/HCC) Other primary cardiomyopathies Major depressive disorder, recurrent episode, moderate ([facility]/HCC)- Primary Major depressive disorder, recurrent episode, moderate LUCERO (generalized anxiety disorder) ([facility]/HCC) Generalized anxiety disorder Bronchiectasis without complication ([facility]/HCC) Seasonal allergic rhinitis due to pollen Heart failure with improved ejection fraction (HFimpEF) ([facility]) Major depressive disorder, recurrent episode, moderate ([facility])- Primary Major depressive disorder, recurrent episode, moderate LUCERO (generalized anxiety disorder) ([facility]) Generalized anxiety disorder Heart failure with improved ejection fraction (HFimpEF) ([facility]) Seasonal allergic rhinitis due to pollen Major depressive disorder, recurrent episode, moderate ([facility]/HCC)- Primary Major depressive disorder, recurrent episode, moderate LUCERO (generalized anxiety disorder) ([facility] Generalized anxiety disorder Bronchiectasis without complication ([facility] May-Thurner syndrome Compression of vein LUCERO (generalized anxiety disorder) ([facility])- Primary Generalized anxiety disorder Major depressive disorder, recurrent episode, moderate ([facility]) Major depressive disorder, recurrent episode, moderate Medicare annual wellness visit, subsequent- Primary Generalized anxiety disorder ([facility]) Generalized anxiety disorder Major depressive disorder, recurrent episode, moderate ([facility]) Major depressive disorder, recurrent episode, moderate LUCERO (generalized anxiety disorder) ([facility] Generalized anxiety disorder Heart failure with improved ejection fraction (HFimpEF) ([facility] Chronic respiratory failure with hypoxia ([facility] Chronic respiratory failure with hypercapnia ([facility] Bronchiectasis without complication ([facility] Dyslipidemia ([facility]) Other [facility] unspecified hyperlipidemia Encounter for long-term current use of medication Breast cancer screening by mammogram Gastroesophageal reflux disease without esophagitis Esophageal reflux Pulmonary hypertension ([facility] Other chronic pulmonary heart diseases Nonischemic cardiomyopathy ([facility]) Other primary cardiomyopathies Chronic dysfunction of right eustachian tube Generalized anxiety disorder ([facility]) General[facility] anxiety disorder documented in this encounter [facility]* Diagnosis Other emphysema ([facility]) Other emphysema Bronchiectasis ([facility]) [facility] Diagnosis Bronchiectasis (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) Other peripheral vascular disease Tinnitus of right ear- Primary Essential hypertension ([facility])- Primary Unspecified essential hypertension LUCERO (generalized anxiety disorder) ([facility]) Generalized anxiety disorder Seasonal allergic rhinitis due to pollen Gastroesophageal reflux disease without esophagitis Esophageal reflux Bronchiectasis without complication ([facility] Heart failure with improved ejection fraction (HFimpEF) ([facility]) Chronic respiratory failure with hypoxia ([facility]/HCC[facility] Chronic respiratory failure with hypercapnia ([facility]) Pulmonary hypertension, unspecified ([facility]) Nonischemic cardiomyopathy ([facility]) Other primary cardiomyopathies Major depressive disorder, recurrent episode, moderate ([facility]/HCC)- Primary Major depressive disorder, recurrent episode, moderate LUCERO (generalized anxiety disorder) ([facility] Generalized anxiety disorder Bronchiectasis without complication ([facility]) Seasonal allergic rhinitis due to pollen Heart failure with improved ejection fraction (HFimpEF) ([facility]) Major depressive disorder, recurrent episode, moderate ([facility]/H[facility])- Primary Major depressive disorder, recurrent episode, moderate LUCERO (generalized anxiety disorder) ([facility]) Generalized anxiety disorder Heart failure with improved ejection fraction (HFimpEF) ([facility]) Seasonal allergic rhinitis due to pollen Major depressive disorder, recurrent episode, moderate ([facility])- Primary Major depressive disorder, recurrent episode, moderate LUCERO (generalized anxiety disorder) ([facility]) Generalized anxiety disorder Bronchiectasis without complication ([facility]) May-Thurner syndrome Compression of vein LUCERO (generalized anxiety disorder) ([facility])- Primary Generalized anxiety disorder Major depressive disorder, recurrent episode, moderate ([facility]) Major depressive disorder, recurrent episode, moderate Medicare annual wellness visit, subsequent- Primary Generalized anxiety disorder ([facility]) Generalized anxiety disorder Major depressive disorder, recurrent episode, moderate ([facility]) Major depressive disorder, recurrent episode, moderate LUCERO (generalized anxiety disorder) ([facility] Generalized anxiety disorder Heart failure with improved ejection fraction (HFimpEF) ([facility] Chronic respiratory failure with hypoxia ([facility] Chronic respiratory failure with hypercapnia ([facility] Bronchiectasis without complication ([facility]) Dyslipidemia ([facility]) Other and unspecified hyperlipidemia Encounter for long-term current use of medication Breast cancer screening by mammogram Gastroesophageal reflux disease without esophagitis Esophageal reflux Pulmonary hypertension ([facility]) Other chronic pulmonary heart diseases Nonischemic cardiomyopathy (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- Primary Dystrophic nail Other specified disease of nail Pain around toenail, right foot Pain around toenail, left foot Raynaud's disease without gangrene documented [facility] Diagnosis Bronchiectasis with acute lower respiratory infection ([facility]-HCC)- Primary [facility] Diagnosis Chronic obstructive pulmonary disease, unspecified COPD type ([facility]-HCC)- Primary Chronic respiratory failure with hypoxia and hypercapnia (CMS-HCC) Bronchiectasis with acute lower respiratory infection ([facility]) 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Tobacco dependence Tobacco use disorder documented in this encounter [facility]* Diagnosis Bronchiectasis with acute lower respiratory infection ([facility]-HCC)- Primary Pneumonia due to Pseudomonas aeruginosa ([facility]-HCC) documented in this encounter [facility]* Diagnosis Pseudomonas aeruginosa colonization- Primary documented in this encounter [facility]* Diagnosis Chronic obstructive pulmonary disease, unspecified COPD type ([facility]-HCC) documented in this encounter [facility]* Diagnosis Other emphysema ([facility]-HCC) Other emphysema Bronchiectasis ([facility]-HCC) documented in this encounter [facility]* Diagnosis Bronchiectasis with acute lower respiratory infection ([facility]-HCC)- Primary documented in this encounter [facility]* Diagnosis Chronic obstructive pulmonary disease, unspecified COPD type ([facility]-HCC) Bronchiectasis ([facility]-HCC) documented in this encounter [facility]* Diagnosis Chronic obstructive pulmonary disease, unspecified COPD type ([facility]-HCC) documented in this encounter [facility]* Diagnosis Bronchiectasis without complication ([facility]-HCC)- Primary documented in this encounter [facility]* Diagnosis Chronic obstructive pulmonary disease, unspecified COPD type ([facility]-HCC) documented in this encounter [facility]* Diagnosis Bronchiectasis ([facility]-HCC)- Primary Cigarette nicotine dependence, uncomplicated Chronic obstructive pulmonary disease, unspecified COPD type ([facility]-HCC) Chronic respiratory failure with hypoxia and hypercapnia ([facility]-HCC) Tobacco dependence Tobacco use disorder 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documented in this encounter [facility]* Diagnosis Bronchiectasis ([facility]-HCC) Chronic cough [facility]ough [facility] Diagnosis Chronic obstructive pulmonary disease, unspecified COPD type ([facility]-HCC) [facility] Diagnosis Chronic obstructive pulmonary disease, unspecified COPD type ([facility]-HCC)- Primary documented in this encounter [facility]* Diagnosis Bronchiectasis ([facility]-HCC) documented in this encounter [facility]* Diagnosis Other emphysema ([facility]-HCC) Other emphysema Bronchiectasis ([facility]-HCC) documented in this encounter [facility]* Diagnosis Chronic obstructive pulmonary disease, unspecified COPD type ([facility]-HCC)- Primary Chronic respiratory failure with hypoxia and hypercapnia ([facility]-HCC) Chronic cough Cough Bronchiectasis ([facility]) 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Tobacco dependence Tobacco use disorder Mycobacterium szulgai infection documented in this encounter [facility]* Diagnosis Chronic respiratory failure with hypoxia and hypercapnia ([facility]-HCC)- Primary SOB (shortness of breath) Shortness of breath documented in this encounter [facility]* Diagnosis SOB (shortness of breath)- Primary Shortness of breath documented in this encounter [facility]* Diagnosis Chronic obstructive pulmonary disease, unspecified COPD type ([facility]-HCC) documented in this encounter [facility]* Diagnosis Bronchiectasis ([facility]-HCC) Chronic cough Cough documented in this encounter [facility]* Diagnosis Bilateral leg edema- Primary Edema Venous insufficiency Unspecified venous (peripheral) insufficiency Acrocyanosis ([facility]) Other peripheral vascular disease Tinnitus of right ear- Primary Essential hypertension ([facility])- Primary Unspecified essential hypertension LUCERO (generalized anxiety disorder) ([facility]) Generalized anxiety disorder Seasonal allergic rhinitis due to pollen Gastroesophageal reflux disease without esophagitis Esophageal reflux Bronchiectasis without complication ([facility] Heart failure with improved ejection fraction (HFimpEF) ([facility]) Chronic respiratory failure with hypoxia ([facility]/HCC) Chronic respiratory failure with hypercapnia ([facility]) Pulmonary hypertension, unspecified ([facility]) Nonischemic cardiomyopathy ([facility]) Other primary cardiomyopathies Major depressive disorder, recurrent episode, moderate ([facility]/HCC)- Primary Major depressive disorder, recurrent episode, moderate LUCERO (generalized anxiety disorder) ([facility]/HCC) Generalized anxiety disorder Bronchiectasis without complication ([facility]) Seasonal allergic rhinitis due to pollen Heart failure with improved ejection fraction (HFimpEF) ([facility]) Major depressive disorder, recurrent episode, moderate ([facility]/HCC)- Primary Major depressive disorder, recurrent episode, moderate LUCERO (generalized anxiety disorder) ([facility]/HCC) Generalized anxiety disorder Heart failure with improved ejection fraction (HFimpEF) ([facility]/HCC) Seasonal allergic rhinitis due to pollen Major depressive disorder, recurrent episode, moderate ([facility]/HCC)- Primary Major depressive disorder, recurrent episode, moderate LUCERO (generalized anxiety disorder) ([facility]/HCC) Generalized anxiety disorder Bronchiectasis without complication ([facility]/HCC) May-Thurner syndrome Compression of vein LUCERO (generalized anxiety disorder) ([facility]/HCC)- Primary Generalized anxiety disorder Major depressive disorder, recurrent episode, moderate ([facility]/HCC) Major depressive disorder, recurrent episode, moderate Medicare annual wellness visit, subsequent- Primary Generalized anxiety disorder ([facility]/HCC) Generalized anxiety disorder Major depressive disorder, recurrent episode, moderate ([facility]/HCC) Major depressive disorder, recurrent episode, moderate LUCERO (generalized anxiety disorder) ([facility]) Generalized anxiety disorder Heart failure with improved ejection fraction (HFimpEF) ([facility]) Chronic respiratory failure with hypoxia ([facility]/HCC) Chronic respiratory failure with hypercapnia ([facility]) Bronchiectasis without complication ([facility]) Dyslipidemia ([facility]) Other and unspecified hyperlipidemia Encounter for long-term current use of medication Breast cancer screening by mammogram Gastroesophageal reflux disease without esophagitis Esophageal reflux Pulmonary hypertension ([facility]/HCC) Other chronic pulmonary heart diseases Nonischemic cardiomyopathy ([facility]/HCC) Other primary cardiomyopathies Chronic dysfunction of right eustachian tube Postoperative pain Other acute postoperative pain documented in this encounter [facility]* Diagnosis Chronic obstructive pulmonary disease, unspecified COPD type ([facility]-HCC)- [facility] Diagnosis Chronic obstructive pulmonary disease, unspecified COPD type ([facility]-HCC) Bronchiectasis ([facility]-HCC) [facility] Diagnosis Bilateral leg edema- Primary Edema Venous insufficiency Unspecified venous (peripheral) insufficiency Acrocyanosis ([facility]/HCC) Other peripheral vascular disease Tinnitus of right ear- Primary Essential hypertension ([facility]/HCC)- Primary Unspecified essential hypertension LUCERO (generalized anxiety disorder) ([facility]) Generalized anxiety disorder Seasonal allergic rhinitis due to pollen Gastroesophageal reflux disease without esophagitis Esophageal reflux Bronchiectasis without complication ([facility]/HCC) Heart failure with improved ejection fraction (HFimpEF) ([facility]/HCC) Chronic respiratory failure with hypoxia (CMS/HCC) Chronic respiratory failure with hypercapnia (CMS/HCC) Pulmonary hypertension, unspecified (CMS/HCC) Nonischemic cardiomyopathy ([facility]/HCC) Other primary cardiomyopathies Major depressive disorder, recurrent episode, moderate (CMS/HCC)- Primary Major depressive disorder, recurrent episode, moderate LUCERO (generalized anxiety disorder) (CMS/HCC) Generalized anxiety disorder Bronchiectasis without complication (CMS/HCC) Seasonal allergic rhinitis due to pollen Heart failure with improved ejection fraction (HFimpEF) ([facility]/HCC) Major depressive disorder, recurrent episode, moderate (CMS/HCC)- Primary Major depressive disorder, recurrent episode, moderate LUCERO (generalized anxiety disorder) (CMS/HCC) Generalized anxiety disorder Heart failure with improved ejection fraction (HFimpEF) ([facility]/HCC) Seasonal allergic rhinitis due to pollen Major depressive disorder, recurrent episode, moderate (CMS/HCC)- Primary Major depressive disorder, recurrent episode, moderate LUCERO (generalized anxiety disorder) ([facility]/HCC) Generalized anxiety disorder Bronchiectasis without complication ([facility]/HCC) May-Thurner syndrome Compression of vein LUCERO (generalized anxiety disorder) ([facility]/HCC)- Primary Generalized anxiety disorder Major depressive disorder, recurrent episode, moderate ([facility]/HCC) Major depressive disorder, recurrent episode, moderate Medicare annual wellness visit, subsequent- Primary Generalized anxiety disorder ([facility]/HCC) Generalized anxiety disorder Major depressive disorder, recurrent episode, moderate ([facility]/HCC) Major depressive disorder, recurrent episode, moderate LUCERO (generalized anxiety disorder) ([facility]/HCC) Generalized anxiety disorder Heart failure with improved ejection fraction (HFimpEF) ([facility]/HCC) Chronic respiratory failure with hypoxia ([facility]/HCC) Chronic respiratory failure with hypercapnia ([facility]/HCC) Bronchiectasis without complication ([facility]/HCC) Dyslipidemia ([facility]) Other and unspecified hyperlipidemia Encounter for long-term current use of medication Breast cancer screening by mammogram Gastroesophageal reflux disease without esophagitis Esophageal reflux Pulmonary hypertension ([facility]/HCC) Other chronic pulmonary heart diseases Nonischemic cardiomyopathy ([facility]/HCC) Other primary cardiomyopathies Chronic dysfunction of right eustachian tube Major depressive disorder, recurrent episode, moderate (CMS/HCC) Major depressive disorder, recurrent episode, moderate Generalized anxiety disorder ([facility]/HCC) Generalized anxiety disorder [facility] Chronic systolic (congestive) heart failure (HCC)- [facility] Chronic obstructive pulmonary disease, unspecified COPD type ([facility]) Bronchiectasis ([facility]) Chronic cough Cough documented [facility] this [facility]* Diagnosis Bilateral leg edema- Primary Edema Venous insufficiency Unspecified venous (peripheral) insufficiency Acrocyanosis ([facility]) Other peripheral vascular disease Tinnitus of right ear- Primary Essential hypertension ([facility])- Primary Unspecified essential hypertension LUCERO (generalized anxiety disorder) ([facility]) Generalized anxiety disorder Seasonal allergic rhinitis due to pollen Gastroesophageal reflux disease without esophagitis Esophageal reflux Bronchiectasis without complication ([facility] Heart failure with improved ejection fraction (HFimpEF) ([facility] Chronic respiratory failure with hypoxia ([facility]) Chronic respiratory failure with hypercapnia ([facility]) Pulmonary hypertension, unspecified ([facility]) Nonischemic cardiomyopathy ([facility]) Other primary cardiomyopathies Major depressive disorder, recurrent episode, moderate ([facility])- Primary Major depressive disorder, recurrent episode, moderate LUCERO (generalized anxiety disorder) ([facility]) Generalized anxiety disorder Bronchiectasis without complication ([facility]) Seasonal allergic rhinitis due to pollen Heart failure with improved ejection fraction (HFimpEF) ([facility]) Major depressive disorder, recurrent episode, moderate ([facility])- Primary Major depressive disorder, recurrent episode, moderate LUCERO (generalized anxiety disorder) ([facility]) Generalized anxiety disorder Heart failure with improved ejection fraction (HFimpEF) ([facility]) Seasonal allergic rhinitis due to pollen Major depressive disorder, recurrent episode, moderate ([facility])- Primary Major depressive disorder, recurrent episode, moderate LUCERO (generalized anxiety disorder) ([facility]) Generalized anxiety disorder Bronchiectasis without complication ([facility]) May-Thurner syndrome Compression of vein LUCERO (generalized anxiety disorder) ([facility])- Primary Generalized anxiety disorder Major depressive disorder, recurrent episode, moderate ([facility]) Major depressive disorder, recurrent episode, moderate Medicare annual wellness visit, subsequent- Primary Generalized anxiety disorder ([facility]) Generalized anxiety disorder Major depressive disorder, recurrent episode, moderate ([facility]) Major depressive disorder, recurrent episode, moderate LUCERO (generalized anxiety disorder) ([facility] Generalized anxiety disorder Heart failure with improved ejection fraction (HFimpEF) ([facility] Chronic respiratory failure with hypoxia ([facility]) Chronic respiratory failure with hypercapnia ([facility]) Bronchiectasis without complication (CMS/HCC) Dyslipidemia (CMS/HCC) Other and unspecified hyperlipidemia Encounter for long-term current use of medication Breast cancer screening by mammogram Gastroesophageal reflux disease without esophagitis Esophageal reflux Pulmonary hypertension (CMS/HCC) Other chronic pulmonary heart diseases Nonischemic cardiomyopathy (CMS/HCC) Other primary cardiomyopathies Chronic dysfunction of right eustachian tube Generalized anxiety disorder (CMS/HCC) Generalized anxiety disorder documented in [facility]* Diagnosis Bronchiectasis (CMS-HCC)- Primary Chronic obstructive pulmonary disease, unspecified COPD type (CMS-HCC) Chronic respiratory failure with hypoxia and hypercapnia (CMS-HCC) Chronic cough Cough Dyspnea on exertion Other dyspnea and respiratory abnormality Leg swelling Swelling of limb [facility] Diagnosis Bilateral leg edema- Primary Edema Venous insufficiency Unspecified venous (peripheral) insufficiency Acrocyanosis Other peripheral vascular disease Tinnitus of right ear- Primary Essential hypertension- Primary Unspecified essential hypertension LUCERO (generalized anxiety disorder) Generalized anxiety disorder Seasonal allergic rhinitis due to pollen Gastroesophageal reflux disease without esophagitis Esophageal reflux Bronchiectasis without complication (HCC) Heart failure with improved ejection fraction (HFimpEF) (CMS/HCC) Chronic respiratory failure with hypoxia (HCC) Chronic respiratory failure with hypercapnia (HCC) Pulmonary hypertension, unspecified (CMS/HCC) Nonischemic cardiomyopathy (HCC) Other primary cardiomyopathies Major depressive disorder, recurrent episode, moderate (HCC)- Primary Major depressive disorder, recurrent episode, moderate LUCERO (generalized anxiety disorder) Generalized anxiety disorder Bronchiectasis without complication (HCC) Seasonal allergic rhinitis due to pollen Heart failure with improved ejection fraction (HFimpEF) (CMS/HCC) Major depressive disorder, recurrent episode, moderate (HCC)- Primary Major depressive disorder, recurrent episode, moderate LUCERO (generalized anxiety disorder) Generalized anxiety disorder Heart failure with improved ejection fraction (HFimpEF) (CMS/HCC) Seasonal allergic rhinitis due to pollen Major depressive disorder, recurrent episode, moderate (HCC)- Primary Major depressive disorder, recurrent episode, moderate LUCERO (generalized anxiety disorder) Generalized anxiety disorder Bronchiectasis without complication (HCC) May-Thurner syndrome Compression of vein LUCERO (generalized anxiety disorder)- Primary Generalized anxiety disorder Major depressive disorder, recurrent episode, moderate (HCC) Major depressive disorder, recurrent episode, moderate Medicare annual wellness visit, subsequent- Primary Generalized anxiety disorder Generalized anxiety disorder Major depressive disorder, recurrent episode, moderate (HCC) Major depressive disorder, recurrent episode, moderate LUCERO (generalized anxiety disorder) Generalized anxiety disorder Heart failure with improved ejection fraction (HFimpEF) (CMS/HCC) Chronic respiratory failure with hypoxia (HCC) Chronic respiratory failure with hypercapnia (HCC) Bronchiectasis without complication (HCC) Dyslipidemia Other and unspecified hyperlipidemia Encounter for long-term current use of medication Breast cancer screening by mammogram Gastroesophageal reflux disease without esophagitis Esophageal reflux Pulmonary hypertension (HCC) Other chronic pulmonary heart diseases Nonischemic cardiomyopathy (HCC) Other primary cardiomyopathies 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- Primary Dystrophic nail Other specified disease of nail Pain around toenail, right foot Pain around toenail, left foot documented in this encounter [facility]* Diagnosis Encounter for screening mammogram for breast cancer [facility] Diagnosis Bilateral leg edema- Primary Edema Venous insufficiency Unspecified venous (peripheral) insufficiency Acrocyanosis Other peripheral vascular disease Tinnitus of right ear- Primary Essential hypertension- Primary Unspecified essential hypertension LUCERO (generalized anxiety disorder) Generalized anxiety disorder Seasonal allergic rhinitis due to pollen Gastroesophageal reflux disease without esophagitis Esophageal reflux Bronchiectasis without complication (HCC) 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) Chronic respiratory failure with hypoxia (HCC) Chronic respiratory failure with hypercapnia (HCC) Pulmonary hypertension, unspecified (HCC) Nonischemic cardiomyopathy (HCC) Other primary cardiomyopathies Major depressive disorder, recurrent episode, moderate (HCC)- Primary Major depressive disorder, recurrent episode, moderate LUCERO (generalized anxiety disorder) Generalized anxiety disorder Bronchiectasis without complication (HCC) Seasonal allergic rhinitis due to pollen 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) Major depressive disorder, recurrent episode, moderate (HCC)- Primary Major depressive disorder, recurrent episode, moderate LUCERO (generalized anxiety disorder) Generalized anxiety disorder 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) Seasonal allergic rhinitis due to pollen Major depressive disorder, recurrent episode, moderate (HCC)- Primary Major depressive disorder, recurrent episode, moderate LUCERO (generalized anxiety disorder) Generalized anxiety disorder Bronchiectasis without complication (HCC) May-Thurner syndrome Compression of vein LUCERO (generalized anxiety disorder)- Primary Generalized anxiety disorder Major depressive disorder, recurrent episode, moderate (HCC) Major depressive disorder, recurrent episode, moderate Medicare annual wellness visit, subsequent- Primary Generalized anxiety disorder Generalized anxiety disorder Major depressive disorder, recurrent episode, moderate (HCC) Major depressive disorder, recurrent episode, moderate LUCERO (generalized anxiety disorder) Generalized anxiety disorder 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) Chronic respiratory failure with hypoxia (HCC) Chronic respiratory failure with hypercapnia (HCC) Bronchiectasis without complication (HCC) Dyslipidemia Other and unspecified hyperlipidemia Encounter for long-term current use of medication Breast cancer screening by mammogram Gastroesophageal reflux disease without esophagitis Esophageal reflux Pulmonary hypertension (HCC) Other chronic pulmonary heart diseases Nonischemic cardiomyopathy (HCC) Other primary cardiomyopathies 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- Primary OME (otitis media with effusion), right documented in this encounter [facility]* Diagnosis Bilateral leg edema- Primary Edema Venous insufficiency Unspecified venous (peripheral) insufficiency Acrocyanosis Other peripheral vascular disease Tinnitus of right ear- Primary Essential hypertension- Primary Unspecified essential hypertension LUCERO (generalized anxiety disorder) Generalized anxiety disorder Seasonal allergic rhinitis due to pollen Gastroesophageal reflux disease without esophagitis Esophageal reflux Bronchiectasis without complication (HCC) 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) Chronic respiratory failure with hypoxia (HCC) Chronic respiratory failure with hypercapnia (HCC) Pulmonary hypertension, unspecified (HCC) Nonischemic cardiomyopathy (HCC) Other primary cardiomyopathies Major depressive disorder, recurrent episode, moderate (HCC)- Primary Major depressive disorder, recurrent episode, moderate LUCERO (generalized anxiety disorder) Generalized anxiety disorder Bronchiectasis without complication (HCC) Seasonal allergic rhinitis due to pollen 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) Major depressive disorder, recurrent episode, moderate (HCC)- Primary Major depressive disorder, recurrent episode, moderate LUCERO (generalized anxiety disorder) Generalized anxiety disorder 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) Seasonal allergic rhinitis due to pollen Major depressive disorder, recurrent episode, moderate (HCC)- Primary Major depressive disorder, recurrent episode, moderate LUCERO (generalized anxiety disorder) Generalized anxiety disorder Bronchiectasis without complication (HCC) May-Thurner syndrome Compression of vein LUCERO (generalized anxiety disorder)- Primary Generalized anxiety disorder Major depressive disorder, recurrent episode, moderate (HCC) Major depressive disorder, recurrent episode, moderate Medicare annual wellness visit, subsequent- Primary Generalized anxiety disorder Generalized anxiety disorder Major depressive disorder, recurrent episode, moderate (HCC) Major depressive disorder, recurrent episode, moderate LUCERO (generalized anxiety disorder) Generalized anxiety disorder 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) Chronic respiratory failure with hypoxia (HCC) Chronic respiratory failure with hypercapnia (HCC) Bronchiectasis without complication (HCC) Dyslipidemia Other and unspecified hyperlipidemia Encounter for long-term current use of medication Breast cancer screening by mammogram Gastroesophageal reflux disease without esophagitis Esophageal reflux Pulmonary hypertension (HCC) Other chronic pulmonary heart diseases Nonischemic cardiomyopathy (HCC) Other primary cardiomyopathies 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) documented in this encounter [facility]* Diagnosis Chronic obstructive pulmonary disease, unspecified COPD type ([facility]CC) documented [facility] encounter [facility]* Diagnosis Bilateral leg edema- Primary Edema Venous insufficiency Unspecified venous (peripheral) insufficiency Acrocyanosis Other peripheral vascular disease Tinnitus of right ear- Primary Essential hypertension- Primary Unspecified essential hypertension LUCERO (generalized anxiety disorder) Generalized anxiety disorder Seasonal allergic rhinitis due to pollen Gastroesophageal reflux disease without esophagitis Esophageal reflux Bronchiectasis without complication (HCC) 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) Chronic respiratory failure with hypoxia (HCC) Chronic respiratory failure with hypercapnia (HCC) Pulmonary hypertension, unspecified (HCC) Nonischemic cardiomyopathy (HCC) Other primary cardiomyopathies Major depressive disorder, recurrent episode, moderate (HCC)- Primary Major depressive disorder, recurrent episode, moderate LUCERO (generalized anxiety disorder) Generalized anxiety disorder Bronchiectasis without complication (HCC) Seasonal allergic rhinitis due to pollen 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) Major depressive disorder, recurrent episode, moderate (HCC)- Primary Major depressive disorder, recurrent episode, moderate LUCERO (generalized anxiety disorder) Generalized anxiety disorder 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) Seasonal allergic rhinitis due to pollen Major depressive disorder, recurrent episode, moderate (HCC)- Primary Major depressive disorder, recurrent episode, moderate LUCERO (generalized anxiety disorder) Generalized anxiety disorder Bronchiectasis without complication (HCC) May-Thurner syndrome Compression of vein LUCERO (generalized anxiety disorder)- Primary Generalized anxiety disorder Major depressive disorder, recurrent episode, moderate (HCC) Major depressive disorder, recurrent episode, moderate Medicare annual wellness visit, subsequent- Primary Generalized anxiety disorder Generalized anxiety disorder Major depressive disorder, recurrent episode, moderate (HCC) Major depressive disorder, recurrent episode, moderate LUCERO (generalized anxiety disorder) Generalized anxiety disorder 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) Chronic respiratory failure with hypoxia (HCC) Chronic respiratory failure with hypercapnia (HCC) Bronchiectasis without complication (HCC) Dyslipidemia Other and unspecified hyperlipidemia Encounter for long-term current use of medication Breast cancer screening by mammogram Gastroesophageal reflux disease without esophagitis Esophageal reflux Pulmonary hypertension (HCC) Other chronic pulmonary heart diseases Nonischemic cardiomyopathy (HCC) Other primary cardiomyopathies Chronic dysfunction of right eustachian tube Major depressive disorder, recurrent episode, moderate (HCC)- Primary Major depressive disorder, recurrent episode, moderate LUCERO (generalized anxiety disorder) Generalized anxiety disorder 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) Bronchiectasis without complication (HCC) Chronic respiratory failure with hypoxia (HCC) Restless legs syndrome (RLS) Colon cancer screening Special screening for malignant neoplasms, colon documented in this encounter [facility]* Diagnosis Bilateral leg edema- Primary Edema Venous insufficiency Unspecified venous (peripheral) insufficiency Acrocyanosis Other peripheral vascular disease Tinnitus of right ear- Primary Essential hypertension- Primary Unspecified essential hypertension LUCERO (generalized anxiety disorder) Generalized anxiety disorder Seasonal allergic rhinitis due to pollen Gastroesophageal reflux disease without esophagitis Esophageal reflux Bronchiectasis without complication (HCC) 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) Chronic respiratory failure with hypoxia (HCC) Chronic respiratory failure with hypercapnia (HCC) Pulmonary hypertension, unspecified (HCC) Nonischemic cardiomyopathy (HCC) Other primary cardiomyopathies Major depressive disorder, recurrent episode, moderate (HCC)- Primary Major depressive disorder, recurrent episode, moderate LUCERO (generalized anxiety disorder) Generalized anxiety disorder Bronchiectasis without complication (HCC) Seasonal allergic rhinitis due to pollen 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) Major depressive disorder, recurrent episode, moderate (HCC)- Primary Major depressive disorder, recurrent episode, moderate LUCERO (generalized anxiety disorder) Generalized anxiety disorder 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) Seasonal allergic rhinitis due to pollen Major depressive disorder, recurrent episode, moderate (HCC)- Primary Major depressive disorder, recurrent episode, moderate LUCERO (generalized anxiety disorder) Generalized anxiety disorder Bronchiectasis without complication (HCC) May-Thurner syndrome Compression of vein LUCERO (generalized anxiety disorder)- Primary Generalized anxiety disorder Major depressive disorder, recurrent episode, moderate (HCC) Major depressive disorder, recurrent episode, moderate Medicare annual wellness visit, subsequent- Primary Generalized anxiety disorder Generalized anxiety disorder Major depressive disorder, recurrent episode, moderate (HCC) Major depressive disorder, recurrent episode, moderate LUCERO (generalized anxiety disorder) Generalized anxiety disorder 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) Chronic respiratory failure with hypoxia (HCC) Chronic respiratory failure with hypercapnia (HCC) Bronchiectasis without complication (HCC) Dyslipidemia Other and unspecified hyperlipidemia Encounter for long-term current use of medication Breast cancer screening by mammogram Gastroesophageal reflux disease without esophagitis Esophageal reflux Pulmonary hypertension (HCC) Other chronic pulmonary heart diseases Nonischemic cardiomyopathy (HCC) Other primary cardiomyopathies Chronic dysfunction of right eustachian tube Major depressive disorder, recurrent episode, moderate (HCC)- Primary Major depressive disorder, recurrent episode, moderate LUCERO (generalized anxiety disorder) Generalized anxiety disorder 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) Bronchiectasis without complication (HCC) Chronic respiratory failure with hypoxia (HCC) Restless legs syndrome (RLS) Colon cancer screening Special screening for malignant neoplasms, colon Generalized anxiety disorder Generalized anxiety disorder documented in this encounter [facility]* Diagnosis Bilateral leg edema- Primary Edema Venous insufficiency Unspecified venous (peripheral) insufficiency Acrocyanosis Other peripheral vascular disease Tinnitus of right ear- Primary Essential hypertension- Primary Unspecified essential hypertension LUCERO (generalized anxiety disorder) Generalized anxiety disorder Seasonal allergic rhinitis due to pollen Gastroesophageal reflux disease without esophagitis Esophageal reflux Bronchiectasis without complication (HCC) 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) Chronic respiratory failure with hypoxia (HCC) Chronic respiratory failure with hypercapnia (HCC) Pulmonary hypertension, unspecified (HCC) Nonischemic cardiomyopathy (HCC) Other primary cardiomyopathies Major depressive disorder, recurrent episode, moderate (HCC)- Primary Major depressive disorder, recurrent episode, moderate LUCERO (generalized anxiety disorder) Generalized anxiety disorder Bronchiectasis without complication (HCC) Seasonal allergic rhinitis due to pollen 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) Major depressive disorder, recurrent episode, moderate (HCC)- Primary Major depressive disorder, recurrent episode, moderate LUCERO (generalized anxiety disorder) Generalized anxiety disorder 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) Seasonal allergic rhinitis due to pollen Major depressive disorder, recurrent episode, moderate (HCC)- Primary Major depressive disorder, recurrent episode, moderate LUCERO (generalized anxiety disorder) Generalized anxiety disorder Bronchiectasis without complication (HCC) May-Thurner syndrome Compression of vein LUCERO (generalized anxiety disorder)- Primary Generalized anxiety disorder Major depressive disorder, recurrent episode, moderate (HCC) Major depressive disorder, recurrent episode, moderate Medicare annual wellness visit, subsequent- Primary Generalized anxiety disorder Generalized anxiety disorder Major depressive disorder, recurrent episode, moderate (HCC) Major depressive disorder, recurrent episode, moderate LUCERO (generalized anxiety disorder) Generalized anxiety disorder 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) Chronic respiratory failure with hypoxia (HCC) Chronic respiratory failure with hypercapnia (HCC) Bronchiectasis without complication (HCC) Dyslipidemia Other and unspecified hyperlipidemia Encounter for long-term current use of medication Breast cancer screening by mammogram Gastroesophageal reflux disease without esophagitis Esophageal reflux Pulmonary hypertension (HCC) Other chronic pulmonary heart diseases Nonischemic cardiomyopathy (HCC) Other primary cardiomyopathies Chronic dysfunction of right eustachian tube Major depressive disorder, recurrent episode, moderate (HCC)- Primary Major depressive disorder, recurrent episode, moderate LUCERO (generalized anxiety disorder) Generalized anxiety disorder 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) Bronchiectasis without complication (HCC) Chronic respiratory failure with hypoxia (HCC) Restless legs syndrome (RLS) Colon cancer screening Special screening for malignant neoplasms, colon Generalized anxiety disorder Generalized anxiety disorder documented in this encounter [facility]* Diagnosis Chronic obstructive pulmonary disease, unspecified COPD type ([facility]-HCC) Bronchiectasis ([facility]-HCC) Chronic cough Cough documented in this encounter [facility]* Diagnosis Chronic respiratory failure with hypoxia and hypercapnia ([facility]-HCC)- Primary Chronic obstructive pulmonary disease, unspecified COPD type ([facility]HCC) Pulmonary nodule Other diseases of lung, not elsewhere classified Tobacco dependence Tobacco use disorder 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[facility] Diagnosis Chronic respiratory failure with hypoxia and hypercapnia ([facility]CC)- Primary [facility]* Diagnosis Bilateral leg edema- Primary Edema Venous insufficiency Unspecified venous (peripheral) insufficiency Acrocyanosis Other peripheral vascular disease Tinnitus of right ear- Primary Essential hypertension- Primary Unspecified essential hypertension LUCERO (generalized anxiety disorder) Generalized anxiety disorder Seasonal allergic rhinitis due to pollen Gastroesophageal reflux disease without esophagitis Esophageal reflux Bronchiectasis without complication (HCC) 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) Chronic respiratory failure with hypoxia (HCC) Chronic respiratory failure with hypercapnia (HCC) Pulmonary hypertension, unspecified (HCC) Nonischemic cardiomyopathy (HCC) Other primary cardiomyopathies Major depressive disorder, recurrent episode, moderate (HCC)- Primary Major depressive disorder, recurrent episode, moderate LUCERO (generalized anxiety disorder) Generalized anxiety disorder Bronchiectasis without complication (HCC) Seasonal allergic rhinitis due to pollen 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) Major depressive disorder, recurrent episode, moderate (HCC)- Primary Major depressive disorder, recurrent episode, moderate LUCERO (generalized anxiety disorder) Generalized anxiety disorder 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) Seasonal allergic rhinitis due to pollen Major depressive disorder, recurrent episode, moderate (HCC)- Primary Major depressive disorder, recurrent episode, moderate LUCERO (generalized anxiety disorder) Generalized anxiety disorder Bronchiectasis without complication (HCC) May-Thurner syndrome Compression of vein LUCERO (generalized anxiety disorder)- Primary Generalized anxiety disorder Major depressive disorder, recurrent episode, moderate (HCC) Major depressive disorder, recurrent episode, moderate Medicare annual wellness visit, subsequent- Primary Generalized anxiety disorder Major depressive disorder, recurrent episode, moderate (HCC) Major depressive disorder, recurrent episode, moderate LUCERO (generalized anxiety disorder) Generalized anxiety disorder 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) Chronic respiratory failure with hypoxia (HCC) Chronic respiratory failure with hypercapnia (HCC) Bronchiectasis without complication (HCC) Dyslipidemia Other and unspecified hyperlipidemia Encounter for long-term current use of medication Breast cancer screening by mammogram Gastroesophageal reflux disease without esophagitis Esophageal reflux Pulmonary hypertension (HCC) Other chronic pulmonary heart diseases Nonischemic cardiomyopathy (HCC) Other primary cardiomyopathies Chronic dysfunction of right eustachian tube Major depressive disorder, recurrent episode, moderate (HCC)- Primary Major depressive disorder, recurrent episode, moderate LUCERO (generalized anxiety disorder) Generalized anxiety disorder 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) Bronchiectasis without complication (HCC) Chronic respiratory failure with hypoxia (HCC) Restless legs syndrome (RLS) Colon cancer screening Special screening for malignant neoplasms, colon Dermatophytosis of nail- Primary Dystrophic nail Other specified disease of nail Pain around toenail, right foot Pain around toenail, left foot documented in this encounter [facility]* Diagnosis Chronic respiratory failure with hypoxia and hypercapnia (CMS-HCC)- Primary Chronic obstructive pulmonary disease, unspecified COPD type ([facility]) [facility] N[facility] No data available for this section [facility] Discharge instructions No data available for this section [facility] InstructionsNot on filedocumented in this encounter [facility] filedocument[facility] filedocument[facility] filedocumented in [facility]ed in [facility] filedocumented in [facility] filedocumented in this [facility] filedocumented in this [facility] filedocumented in [facility]ocumented in [facility] filedocumented in [facility] filedocumented in [facility] filedocumented in [facility] filedocumented in [facility] on filedocumented in this [facility] on filedocumented in [facility] on filedocumented in this [facility] No data available for this section [facility] Reason for referral (narrative)* Diagnostic Procedure Only (Routine) - Pending ReviewSpecialtyDiagnoses / ProceduresReferred By ContactReferred To ContactMOLECULAR & FUNCTIONAL IMAGING Diagnoses Chronic systolic HF (heart failure) (HCC) Other cardiomyopathy (HCC) Procedures NM SPECT/CT CARDIAC AMYLOID RP LOCLZJ KARO SPECT W/CT 1 AREA 1 DAY IMAGING Alex Riggins MD [address] [place] [address] Molecular & Functional Imaging [address] [place] [address] Referral IDStatusReasonStart DateExpiration DateVisits RequestedVisits [id number] Review Auto-Generated Referral T [facility] for referral (narrative)* Diagnostic Procedure Only (Routine) - ClosedSpecialtyDiagnoses / ProceduresReferred By ContactReferred To [facility] Diagnoses Chronic systolic HF (heart failure) (HCC) Other cardiomyopathy (HCC) Procedures NM SPECT/CT CARDIAC AMYLOID RP LOCLZJ KARO SPECT W/CT 1 AREA 1 DAY IMAGING Alex Riggins MD [address] [place] [address] Molecular & Functional Imaging [address] [place] [address] Referral IDStatusShopCity.comHamilton DateExpiration DateVisits RequestedVisits [id number] Auto-Generated Referral [facility] for referral (narrative)* Outpatient Procedure (Routine) - Pending ReviewSpecialtyDiagnoses / ProceduresReferred By ContactReferred To [facility] Diagnoses Peripheral arterial disease (HCC) Chronic systolic HF (heart failure) (HCC) Procedures PVR LEG ZAHIRA VAS LAB NON-INVASIVE PHYSIOLOGIC STUDY EXTREMITY 3 [place] [address] [place], [place] [id number] [facility] [place] [address] [place] [address] Referral [facility]Status[facility] DateExpiration DateVisits RequestedVisits [id number] Review Auto-Generated Referral 2/ * Outpatient Procedure (Routine) - Pending ReviewSpecialtyDiagnoses / Procedures Referred By ContactReferred To [facility] Diagnoses Chronic systolic HF (heart failure) (HCC) Procedures ECHO ECHO TTHRC R-T 2D W/WOM-MODE COMPL SPEC&COLAlex Bell MD [address] [place] [address] [place] [address] Referral IDStatusReasonStart DateExpiration DateVisits RequestedVisits [id number] Review Auto-Generated Referral [facility] for referral (narrative)* Outpatient Procedure (Routine) - ClosedSpecialtyDiagnoses / ProceduresReferred By ContactReferred To [facility] Diagnoses Chronic systolic HF (heart failure) (HCC) Procedures ECHO ECHO TTHRC R-T 2D W/WOM-MODE COMPL SPEC&Alex Rios MD [address] [place] [address] [address] Referral IDStatusLetaHamilton DateExpiration DateVisits RequestedVisits [id number] Auto-Generated Referral [facility] for referral (narrative)* Outpatient Procedure (Routine) - ClosedSpecialtyDiagnoses / ProceduresReferred By ContactMet[facility] To [facility] Diagnoses Peripheral arterial disease (HCC) Chronic systolic HF (heart failure) (HCC) Procedures PVR LEG ZAHIRA VAS LAB NON-INVASIVE PHYSIOLOGIC STUDY EXTREMITY 3 Alex Mullins MD [address] [place] [address] [place] [id number] Referral IDStatusReasonStart DateExpiration DateVisits RequestedVisits [id number] Auto-Generated Referral / [facility] for referral (narrative)* Outpatient Procedure (Routine) - AuthorizedSpecialtyDiagnoses / ProceduresReferred By ContactReferred To [facility] Diagnoses Venous hypertension 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 Procedures US VISCERAL VEIN COMPLETE VAS LAB DUP-SCAN ARTL TAVO ABDL/PEL/SCROT&/RPR ORGN COM Yuki Car MD [id number] [place] [address] Referral IDStatusReasonStart DateExpiration DateVisits RequestedVisits [id number] Auto-Generated Referral * Outpatient Procedure (Routine) - AuthorizedSpecialtyDiagnoses / Procedures Referred By ContactReferred To [facility] Diagnoses Venous hypertension 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 Procedures US VENOUS INCOMPETENCY UNL VAS LAB DUP-SCAN XTR VEINS UNILATERAL/LIMITED STUDY Yuki Car MD [address] [place] [address] [address] Referral IDStatusReasonStart DateExpiration DateVisits RequestedVisits [id number] Auto-Generated Referral [facility] for referral (narrative)* Diagnostic Procedure Only (Routine) - New RequestSpecialtyDiagnoses / ProceduresReferred By Contact Referred To ContactXR IMAGING Diagnoses Paresthesia DDD (degenerative disc disease), lumbar Procedures XR LUMBAR GENERAL 3V AP/LAT/L5-S1 RADEX SPINE LUMBOSACRAL 2/3 VIEWS Yuki Car MD [address] [place] [address] Xr Imaging [place] [address] Referral IDStatusReasonStart DateExpiration DateVisits RequestedVisits [id number] Request Auto-Generated Referral * Consult, Test, Treat (Routine) - AuthorizedSpecialtyDiagnoses / Procedures Referred By ContactReferred To ContactNeurology Diagnoses Paresthesia DDD (degenerative disc disease), lumbar Procedures CONSULT TO NEUROLOGY OFFICE/OUTPATIENT [facility] 60 MINUTES Yuki Car MD [address] [place] [address] Referral IDStatusRekindred hospitalStfort pierce DateExpiration DateVisits RequestedVisits [id number] PCP Requested Referral * Consult, Test, Treat (Routine) - AuthorizedSpecialtyDiagnoses / Procedures Referred By ContactReferred To ContactVascular Surgery 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 Procedures CONSULT TO VASCULAR SURGERY OFFICE/OUTPATIENT [facility] 60 MINUTES Yuki Car MD [address] [place] [address] Referral IDStatusReasonStfort pierce DateExpiration DateVisits RequestedVisits [id number] PCP Requested Referral [facility] for referral (narrative)* Consultation (Routine) - Pending ReviewSpecialtyDiagnoses / ProceduresReferred By ContactReferred To ContactInfectious Disease Diagnoses Bronchiectasis ([facility]) 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Laura Mac DO [address] [address] [place] [address] [place] [address] Referral IDStatusReasonStart DateExpiration DateVisits RequestedVisits [id number] Review Specialty Services Required / * Respiratory Therapy (Routine) - Pending ReviewSpecialtyDiagnoses / Procedures Referred By ContactReferred To Contact Diagnoses Chronic obstructive pulmonary disease, unspecified COPD type ([facility]) Bronchiectasis ([facility]) Procedures Home O2 eval (desaturation screen) Laura Mac DO [address] [address] Referral IDStatusLetaHamilton DateExpiration DateVisits RequestedVisits [id number] Review/ [facility] for visit Narrative* Diagnostic Procedure Only (Routine) - ClosedSpecialtyDiagnoses / ProceduresReferred By ContactReferred To ContactMOLECULAR & FUNCTIONAL IMAGING Diagnoses Chronic systolic HF (heart failure) (HCC) Other cardiomyopathy (HCC) Procedures NM SPECT/CT CARDIAC AMYLOID RP LOCLZJ KARO SPECT W/CT 1 AREA 1 DAY IMAGING Alex Riggins MD [address] [place] [address] Molecular & Functional Imaging [address] [place] [address] Referral IDStatusBonnieasonStart DateExpiration DateVisits RequestedVisits [id number] Auto-Generated Referral / [facility] for visit Narrative* Outpatient Procedure (Routine) - ClosedSpecialtyDiagnoses / ProceduresReferred By ContactReferred To Contact [facility] Diagnoses Chronic systolic HF (heart failure) (HCC) Procedures ECHO ECHO TTHRC R-T 2D W/WOM-MODE COMPL SPEC&COLR D Alex Riggins MD [address] [place] [address] [place] [address] Referral IDStatusReasonStart DateExpiration DateVisits RequestedVisits [id number] Auto-Generated Referral / [facility] for visit Narrative* Outpatient Procedure (Routine) - ClosedSpecialtyDiagnoses / ProceduresReferred By ContactReferred To Contact [facility] Diagnoses Peripheral arterial disease (HCC) Chronic systolic HF (heart failure) (HCC) Procedures PVR LEG ZAHIRA VAS LAB NON-INVASIVE PHYSIOLOGIC STUDY EXTREMITY 3 Alex Mullins MD [address] [place] [address] [place] [phone] Referral IDStatusReasonStart DateExpiration DateVisits RequestedVisits [id number] Auto-Generated Referral / [facility] for visit Narrative* Imaging (Routine) - ClosedSpecialty Diagnoses / ProceduresReferred By ContactReferred To ContactRadiology Diagnoses Encounter for screening mammogram for breast cancer Procedures LACHELLE ALMA DELIA DIGITAL SCREEN BILATERAL LACHELLE ALMA DELIA DIGITAL SCREEN SELF REFERRAL W OR WO CAD BILATERAL Luiz Tadeo MD [address] [place] [address] Phone: tel: fax: Referral IDStatusReasonStart DateExpiration DateVisits RequestedVisits [id number]/17/27530 [facility] Summary Purpose Family History No Family History Records FoundNo Family History Records FoundNo Family History Records FoundNo Family History Records Found No data available for this section No data available for this section No data available for this section No Family History Records Found No data available for this section No Family History Records Found No data available for this section No Family History Records FoundNo Family History Records FoundNo Family History Records Found No data available for this section No data available for this section No Family History Records FoundNo Family History Records FoundNo Family History Records FoundNo Family History Records FoundNo Family History Records FoundNo Family History Records FoundNo Family History Records Found Advance Directives TypeDate RecordedPatient RepresentativeExplanationACP-Advance DirectiveACP-Power of AttorneyDate ActivatedDate InactivatedComments09/22/2023 5:17 PM09/24/2023 1:20 PMDate ActivatedDate InactivatedComments09/22/2023 5:17 PM09/24/2023 1:20 PM Code StatusDate ActivatedDate InactivatedCommentsFull Code09/22/2023 5:17 PM 09/24/2023 1:20 PMCode StatusDate ActivatedDate InactivatedCommentsFull Code 09/22/2023 5:17 PM09/24/2023 1:20 PM Reason for Referral StatusReasonSpecialtyDiagnoses / ProceduresReferred By ContactReferred To ContactClosedRadiology Diagnoses Breast cancer screening by mammogram Procedures LACHELLE ALMA DELIA DIGITAL SCREEN SELF REFERRAL W OR WO CAD BILATERAL Pili Stearns A [address] [place] [address] SpecialtyDiagnoses / ProceduresReferred By ContactReferred To ContactMR IMAGING Diagnoses Cardiomyopathy, unspecified type (HCC) Chronic systolic HF (heart failure) (HCC) Procedures MRI CARDIAC VELOCITY FLOW MAP CARDIAC MRI FOR VELOCITY FLOW MAPPING Alex Riggins MD [address] [place] [address] Mr Imaging Referral IDStatusReasonStart DateExpiration DateVisits RequestedVisits [id number] Auto-Generated Referral [id number] / ProceduresReferred By ContactReferred To ContactMR IMAGING Diagnoses Cardiomyopathy, unspecified type (HCC) Chronic systolic HF (heart failure) (HCC) Procedures MRI CARDIAC MORPH FUNC WO/W IVCON CARDIAC MRI W/WO CONTRAST & FURTHER SEQ Alex Riggisn MD [address] [place] [id number] Mr Imaging Referral IDStatusReasonStfort pierce DateExpiration DateVisits RequestedVisits [id number] Auto-Generated Referral /[id number] / ProceduresReferred By ContactReferred To [facility] Diagnoses Hypo-osmolality and hyponatremia Procedures CONSULT TO ENDOCRINOLOGY OFFICE/OUTPATIENT [facility] 60-74 MINUTES Marti Larsen, ARSLAN [address] [place] [address] Referral IDStatusReasonHamilton DateExpiration DateVisits RequestedVisits [id number] PCP Requested Referral /[id number] / ProceduresReferred By ContactReferred To [facility] [place] Diagnoses Chronic systolic HF (heart failure) (HCC) Procedures CARDIOVASCULAR MEDICINE OP FOLLOW UP APPT ORDER Alex Riggins MD [address] [place] [phone] [facility] [place] [address] Referral IDStatusBonnieUAB Hospital [facility] DateExpiration DateVisits RequestedVisits [id number] Not Required PCP Requested Referral /[id number] / ProceduresReferred By ContactReferred To [facility] [place] Diagnoses Chronic systolic HF (heart failure) (HCC) Procedures ECHO ECHO TTHRC R-T 2D W/WOM-MODE COMPL SPEC&COLR D Alex Riggins MD [address] [place] [address] [facility] [place] [address] Referral IDStatusReasonStart DateExpiration DateVisits RequestedVisits [id number] Review Auto-Generated Referral /[id number] / ProceduresReferred By ContactReferred To [facility] Procedures CARDIOVASCULAR MEDICINE OP FOLLOW UP APPT ORDER Yuki Car MD [address] [place] [address] [place] [address] Referral IDStatusReasonStart DateExpiration DateVisits RequestedVisits [id number] Not Required PCP Requested Referral /[id number] / ProceduresReferred By ContactReferred To [facility] 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 Procedures US VISCERAL VEIN COMPLETE VAS LAB DUP-SCAN ARTL TAVO ABDL/PEL/SCROT&/RPR ORGN COM Yuki Car MD [address] [place] [address] [place] [address] Referral IDStatusReasonStart DateExpiration DateVisits RequestedVisits [id number] Review Auto-Generated Referral /[id number] / ProceduresReferred By ContactReferred To ContactCT IMAGING 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 Procedures CTA ABD/PEL W IVCON CT ANGIO ABD&PLVIS CNTRST MTRL W/WO CNTRST Yuki Cardona MD [address] [place] [address] Ct Imaging [place] [address] Referral IDStatusReasonStart DateExpiration DateVisits RequestedVisits [id number] Auto-Generated Referral /[id number] IDStatusReasonStart DateExpiration DateVisits RequestedVisits [id number] Auto-Generated Referral /[id number] / ProceduresReferred By ContactReferred To ContactAVITA HEALTH SYSTEMRT [facility] Procedures CARDIOVASCULAR MEDICINE OP FOLLOW UP APPT ORDER Mima Carpio APRN.DIRECTOR BIOLOGY [address] [place] [address] [facility] [place] [address] [place] [address] Referral IDStatusReasonStart DateExpiration DateVisits RequestedVisits [id number] Not Required PCP Requested Referral [id number] / ProceduresReferred By ContactReferred To Contact Diagnoses Other emphysema ([facility]) Bronchiectasis ([facility]) Laura Mac, [address] [address] Referral IDStatusReasonStart DateExpiration DateVisits RequestedVisits [id number] / ProceduresReferred By Contact Referred To Contact Diagnoses Chronic obstructive pulmonary disease, unspecified COPD type ([facility]) Bronchiectasis with acute lower respiratory infection ([facility]) [place] [address] [place] [address] Referral IDStatusReasonStart DateExpiration DateVisits RequestedVisits [id number] Review/[id number] IDStatusReasonStart DateExpiration DateVisits RequestedVisits [id number] Review /[id number] / ProceduresReferred By ContactReferred To ContactRadiology Diagnoses Cigarette nicotine dependence, uncomplicated Procedures CT low dose lung screening (Annual) [place] [address] [place] [address] Referral IDStatusReasonStart DateExpiration DateVisits RequestedVisits [id number] Review/[id number] / ProceduresReferred By ContactReferred To Contact Diagnoses Chronic obstructive pulmonary disease, unspecified COPD type ([facility]) Laura Mac, DO [address] [address] Referral IDStatusReasonStart DateExpiration DateVisits RequestedVisits [id number] Review/[id number] / ProceduresReferred By ContactReferred To Contact Diagnoses Chronic respiratory failure with hypoxia and hypercapnia ([facility]) SOB (shortness of breath) Procedures Oxygen Therapy Laura Mac, DO [address] [address] Referral IDStatusReasonStart DateExpiration DateVisits RequestedVisits [id number] Review/ Additional Source Comments INFORMATION SOURCE (unrecogn ized section and content) DATE CREATED AUTHOR 02/23/2018 [facility] DATE CREATED AUTHOR AUTHOR'S ORGANIZ ATION 12/24/2022 [facility] DATE CREATED AUTHOR AUTHOR'S ORGANIZ ATION 03/25/2023 [facility] DATE CREATED AUTHOR AUTHOR'S ORGANIZ ATION 05/25/2024 [facility] DATE CREATED AUTHOR AUTHOR'S ORGANIZ ATION 10/07/[address] [facility] DATE CREATED AUTHOR AUTHOR'S ORGANIZ ATION 10/30/[address] [facility] DATE CREATED AUTHOR AUTHOR'S ORGANIZ ATION 11/13/[address] [facility] DATE CREATED AUTHOR AUTHOR'S ORGANIZ ATION 11/14/[address] [facility] DATE CREATED AUTHOR AUTHOR'S ORGANIZ ATION 02/03/2025 [facility] DATE CREATED AUTHOR AUTHOR'S ORGANIZ ATION 02/24/2025 [facility] DATE CREATED AUTHOR AUTHOR'S ORGANIZ ATION 04/03/[address] [facility] DATE CREATED AUTHOR AUTHOR'S ORGANIZ ATION 05/15/2025 [facility] DATE CREATED AUTHOR AUTHOR'S ORGANIZ ATION 06/07/2025 [facility] DATE CREATED AUTHOR AUTHOR'S ORGANIZ ATION 06/20/2025 [facility] DATE CREATED AUTHOR AUTHOR'S ORGANIZ ATION 06/25/2025 [facility] Reason for Visit (unrecogniz ed section and content) ReasonCommentsFollow UpSpecialtyDiagnoses / ProceduresReferred By Contact Referred [facility] [place] Procedures CARDIOVASCULAR MEDICINE OP FOLLOW UP APPT ORDER Mima Carpio, TECHNICAL ACCOUNT MANAGER.DIRECTOR BIOLOGY [address] [place] [address] Phone: tel: fax: [facility] [place] [address] [place] [address] Referral IDStatusReasonStart DateExpiration DateVisits RequestedVisits [id number] PCP Requested Referral [id number]cpeqma / ProceduresReferred By ContactReferred To ContactClosedRadiology Diagnoses Breast cancer screening by mammogram Procedures LACHELLE ALMA DELIA DIGITAL SCREEN SELF REFERRAL W OR WO CAD BILATERAL Pili Stearns [address] [place] [address] ReasonCommentsClinical UpdateReasonCommentsCounselingReasonCommentsRadiology MRI SpecialtyDiagnoses / ProceduresReferred By ContactReferred To ContactMR IMAGING Diagnoses Cardiomyopathy, unspecified type (HCC) Chronic systolic HF (heart failure) (HCC) Procedures MRI CARDIAC MORPH FUNC WO/W IVCON CARDIAC MRI W/WO CONTRAST & FURTHER SEQ Alex Riggins MD [address] [place] [address] Mr Imaging Referral IDStatusReasonStart DateExpiration DateVisits RequestedVisits [id number] Auto-Generated Referral /[id number] UpReasonCommentsAdvice OnlyReason CommentsFollow UpReasonCommentsLab OrdersFaxedReasonCommentsRx RefillsReason CommentsEntrestoReasonCommentsResultsLab RcvdReasonCommentsFollow UpRx Refills ReasonCommentsOutside Labs ResultsReasonCommentsBI Patient assistanceReason CommentsFormsNovartisReasonCommentsAppointmentReasonCommentsConsultSpecialty Diagnoses / ProceduresReferred By ContactReferred To ContactVascular Medicine Diagnoses Discoloration of skin of multiple sites of lower extremity Procedures CONSULT TO VASCULAR MEDICINE OFFICE/OUTPATIENT [facility] 60-74 MINUTES Aelx Riggins MD [address] [place] [address] Referral IDStatusReasonStart DateExpiration DateVisits RequestedVisits [id number] PCP Requested Referral /[id number] UpVenous hypertensionReasonComments Patient calling for results from 02/21 ultrasoundSpecialtyDiagnoses / Procedures Referred By ContactReferred To ContactCT IMAGING 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 Procedures CTA ABD/PEL W IVCON CT ANGIO ABD&PLVIS CNTRST MTRL W/[place] [address] [place] [address] Ct Imaging [place] [address] Referral IDStatusReasonStart DateExpiration DateVisits RequestedVisits [id number] Auto-Generated Referral /[id number] / ProceduresReferred By ContactReferred To [facility] Diagnoses Chronic systolic HF (heart failure) (HCC) Procedures CARDIOVASCULAR MEDICINE OP FOLLOW UP APPT ORDER Alex Riggins MD [address] [place] [address] [facility] [place] [address] [place] [address] Referral IDStatusReasonStart DateExpiration DateVisits RequestedVisits [id number] Not Required PCP Requested Referral /[id number] Patient's CallReasonCommentsFollow UpReasonCommentsNew PatientReasonCommentsFollow-up1 mShortness of BreathReason Onset DateCommentsMed Mctxue174ReasonCommentsReceived Outside Medical RecordsReasonOnset DateCommentsMed Zojbjv3608/09/2024easonOnset DateCommentsMed Sammbk4105/17/2024easonCommentsResultsReasonCommentsPanic AttackReasonComments Follow-upEr f/upDepressionReasonOnset DateCommentsMed Qjaset274Reason CommentsFollow-up1 mReasonOnset DateCommentsMed Mppwin1408/27/2024easonOnset Date CommentsMed Jaiyez6109/12/2024ReasonCommentsFollow-upHome O2 Evaluation: 05/25/2024rrived on 4Lnc of O2, on 3Lnc of O2 at homeCXR: 05/28/2024FT: OPDReasonCommentsMedicare Annual Wellness Visit SubsequentReasonOnset Date CommentsMed Asnven9410/10/2024ReasonOnset DateCommentsMed Jbaiyl644Reason CommentsIngrown Ejjbijg38 yo OP presents today for nail debridement, pt also relates possible ingrown nail BL hallux, pt states they are sensitive to the touch.ReasonCommentsFollow-upBronchiectasisLDSCT: Due 03/12/2024FT: 02/01/2024 COPDOn 3Lnc of F9Glvujet on 3Lnc of D1DyfszmNfdatcjoDzw RefillReasonComments Follow-upLabs: 3CXR: 09/22/2023 & 09/23/2023rrived on 2.5Lnc of O2COPD ReasonCommentsMed Change RequestReasonCommentsFollow-upLDSCT: 4CXR: 4PFT: 02/01/2024On 2-3Lnc of O2 with ambulation and sleepArrived on 3 Lnc of A0UKIWUudqkyWpeqd DateCommentsMed Hyqtqd4107/19/2024easonOnset Date CommentsMed Wmwvts63ReasonOnset DateCommentsMed Hlpgjt14/08/2025Reason Onset DateCommentsMed Crtscm1212/27/2024ReasonOnset DateCommentsMed Refill 01/29/2025ReasonCommentsFollow-upCoughDENIESWheezingREPORTS THROUGHOUT THE DAY AND NIGHTRUBBING SOUNDShortness of BreathPOC 4 CONTINUOUSREPORT INCREASE IN THE LAST 2 WEEKSReasonCommentsRefill RequestReasonCommentsNail careCljamee Brewer is a 74 y.o. female who presents for Nail care.ReasonCommentsEar ProblemFollow up audio 02/27/25ReasonOnset DateCommentssurgery and clearance 03/22/2025ReasonCommentsFollow-up6m f/upCologuardReasonOnset DateCommentsMed Clmwxk4003/29/2025ReasonOnset DateCommentsMed Nhjqgd9404/08/2025ReasonComments Follow-upChronic respiratory failure with hypoxia and hypercapniaBronchiectasisLabs: 5CXR: 02/01/2025ReasonCommentsNail care Marcela Brewer is a 75y.o. female who presents for Nail care. Source Comments (unrecognize d section and content) In the event this informatio n is protected by the Federal Confidentiality of Alcohol and Drug Abuse Patient Records regulations: The Federal rules restrict any use of the information to criminally investigate or prosecute any alcohol or drug abuse patient.[facility] HospitalIn the event this information is protected by the Federal Confidentiality of Alcohol and Drug Abuse Patient Records regulations: The Federal rules restrict any use of the information to criminally investigate or prosecute any alcohol or drug abuse patient.[facility] HospitalIn the event this information is protected by the Federal Confidentiality of Alcohol and Drug Abuse Patient Records regulations: The Federal rules restrict any use of the information to criminally investigate or prosecute any alcohol or drug abuse patient.[facility] HospitalIn the event this information is protected by the Federal Confidentiality of Alcohol and Drug Abuse Patient Records regulations: The Federal rules restrict any use of the information to criminally investigate or prosecute any alcohol or drug abuse patient.[facility] HospitalIn the event this information is protected by the Federal Confidentiality of Alcohol and Drug Abuse Patient Records regulations: The Federal rules restrict any use of the information to criminally investigate or prosecute any alcohol or drug abuse patient.[facility] HospitalIn the event this information is protected by the Federal Confidentiality of Alcohol and Drug Abuse Patient Records regulations: The Federal rules restrict any use of the information to criminally investigate or prosecute any alcohol or drug abuse patient.[facility] HospitalIn the event this information is protected by the Federal Confidentiality of Alcohol and Drug Abuse Patient Records regulations: The Federal rules restrict any use of the information to criminally investigate or prosecute any alcohol or drug abuse patient.[facility] HospitalIn the event this information is protected by the Federal Confidentiality of Alcohol and Drug Abuse Patient Records regulations: The Federal rules restrict any use of the information to criminally investigate or prosecute any alcohol or drug abuse patient.[facility] HospitalIn the event this information is protected by the Federal Confidentiality of Alcohol and Drug Abuse Patient Records regulations: The Federal rules restrict any use of the information to criminally investigate or prosecute any alcohol or drug abuse patient.[facility] HospitalIn the event this information is protected by the Federal Confidentiality of Alcohol and Drug Abuse Patient Records regulations: The Federal rules restrict any use of the information to criminally investigate or prosecute any alcohol or drug abuse patient.[facility] HospitalIn the event this information is protected by the Federal Confidentiality of Alcohol and Drug Abuse Patient Records regulations: The Federal rules restrict any use of the information to criminally investigate or prosecute any alcohol or drug abuse patient.[facility] HospitalIn the event this information is protected by the Federal Confidentiality of Alcohol and Drug Abuse Patient Records regulations: The Federal rules restrict any use of the information to criminally investigate or prosecute any alcohol or drug abuse patient.[facility] HospitalIn the event this information is protected by the Federal Confidentiality of Alcohol and Drug Abuse Patient Records regulations: The Federal rules restrict any use of the information to criminally investigate or prosecute any alcohol or drug abuse patient.[facility] HospitalIn the event this information is protected by the Federal Confidentiality of Alcohol and Drug Abuse Patient Records regulations: The Federal rules restrict any use of the information to criminally investigate or prosecute any alcohol or drug abuse patient.[facility] the event this information is protected by the Federal Confidentiality of Alcohol and Drug Abuse Patient Records regulations: The Federal rules restrict any use of the information to criminally investigate or prosecute any alcohol or drug abuse patient.[facility] HospitalIn the event this information is protected by the Federal Confidentiality of Alcohol and Drug Abuse Patient Records regulations: The Federal rules restrict any use of the information to criminally investigate or prosecute any alcohol or drug abuse patient.[facility] HospitalIn the event this information is protected by the Federal Confidentiality of Alcohol and Drug Abuse Patient Records regulations: The Federal rules restrict any use of the information to criminally investigate or prosecute any alcohol or drug abuse patient.[facility] the event this information is protected by the Federal Confidentiality of Alcohol and Drug Abuse Patient Records regulations: The Federal rules restrict any use of the information to criminally investigate or prosecute any alcohol or drug abuse patient.[facility] HospitalIn the event this information is protected by the Federal Confidentiality of Alcohol and Drug Abuse Patient Records regulations: The Federal rules restrict any use of the information to criminally investigate or prosecute any alcohol or drug abuse patient.[facility] HospitalIn the event this information is protected by the Federal Confidentiality of Alcohol and Drug Abuse Patient Records regulations: The Federal rules restrict any use of the information to criminally investigate or prosecute any alcohol or drug abuse patient.[facility] HospitalIn the event this information is protected by the Federal Confidentiality of Alcohol and Drug Abuse Patient Records regulations: The Federal rules restrict any use of the information to criminally investigate or prosecute any alcohol or drug abuse patient.[facility] HospitalIn the event this information is protected by the Federal Confidentiality of Alcohol and Drug Abuse Patient Records regulations: The Federal rules restrict any use of the information to criminally investigate or prosecute any alcohol or drug abuse patient.[facility] HospitalIn the event this information is protected by the Federal Confidentiality of Alcohol and Drug Abuse Patient Records regulations: The Federal rules restrict any use of the information to criminally investigate or prosecute any alcohol or drug abuse patient.[facility] HospitalIn the event this information is protected by the Federal Confidentiality of Alcohol and Drug Abuse Patient Records regulations: The Federal rules restrict any use of the information to criminally investigate or prosecute any alcohol or drug abuse patient.[facility] HospitalIn the event this information is protected by the Federal Confidentiality of Alcohol and Drug Abuse Patient Records regulations: The Federal rules restrict any use of the information to criminally investigate or prosecute any alcohol or drug abuse patient.[facility] HospitalIn the event this information is protected by the Federal Confidentiality of Alcohol and Drug Abuse Patient Records regulations: The Federal rules restrict any use of the information to criminally investigate or prosecute any alcohol or drug abuse patient.[facility] HospitalIn the event this information is protected by the Federal Confidentiality of Alcohol and Drug Abuse Patient Records regulations: The Federal rules restrict any use of the information to criminally investigate or prosecute any alcohol or drug abuse patient.[facility] HospitalIn the event this information is protected by the Federal Confidentiality of Alcohol and Drug Abuse Patient Records regulations: The Federal rules restrict any use of the information to criminally investigate or prosecute any alcohol or drug abuse patient.[facility] HospitalIn the event this information is protected by the Federal Confidentiality of Alcohol and Drug Abuse Patient Records regulations: The Federal rules restrict any use of the information to criminally investigate or prosecute any alcohol or drug abuse patient.[facility] HospitalIn the event this information is protected by the Federal Confidentiality of Alcohol and Drug Abuse Patient Records regulations: The Federal rules restrict any use of the information to criminally investigate or prosecute any alcohol or drug abuse patient.[facility] HospitalIn the event this information is protected by the Federal Confidentiality of Alcohol and Drug Abuse Patient Records regulations: The Federal rules restrict any use of the information to criminally investigate or prosecute any alcohol or drug abuse patient.[facility] HospitalIn the event this information is protected by the Federal Confidentiality of Alcohol and Drug Abuse Patient Records regulations: The Federal rules restrict any use of the information to criminally investigate or prosecute any alcohol or drug abuse patient.[facility] HospitalIn the event this information is protected by the Federal Confidentiality of Alcohol and Drug Abuse Patient Records regulations: The Federal rules restrict any use of the information to criminally investigate or prosecute any alcohol or drug abuse patient.[facility] HospitalIn the event this information is protected by the Federal Confidentiality of Alcohol and Drug Abuse Patient Records regulations: The Federal rules restrict any use of the information to criminally investigate or prosecute any alcohol or drug abuse patient.[facility] HospitalIn the event this information is protected by the Federal Confidentiality of Alcohol and Drug Abuse Patient Records regulations: The Federal rules restrict any use of the information to criminally investigate or prosecute any alcohol or drug abuse patient.[facility] HospitalIn the event this information is protected by the Federal Confidentiality of Alcohol and Drug Abuse Patient Records regulations: The Federal rules restrict any use of the information to criminally investigate or prosecute any alcohol or drug abuse patient.[facility] HospitalIn the event this information is protected by the Federal Confidentiality of Alcohol and Drug Abuse Patient Records regulations: The Federal rules restrict any use of the information to criminally investigate or prosecute any alcohol or drug abuse patient.[facility] HospitalIn the event this information is protected by the Federal Confidentiality of Alcohol and Drug Abuse Patient Records regulations: The Federal rules restrict any use of the information to criminally investigate or prosecute any alcohol or drug abuse patient.[facility] HospitalIn the event this information is protected by the Federal Confidentiality of Alcohol and Drug Abuse Patient Records regulations: The Federal rules restrict any use of the information to criminally investigate or prosecute any alcohol or drug abuse patient.[facility] HospitalIn the event this information is protected by the Federal Confidentiality of Alcohol and Drug Abuse Patient Records regulations: The Federal rules restrict any use of the information to criminally investigate or prosecute any alcohol or drug abuse patient.[facility] HospitalIn the event this information is protected by the Federal Confidentiality of Alcohol and Drug Abuse Patient Records regulations: The Federal rules restrict any use of the information to criminally investigate or prosecute any alcohol or drug abuse patient.[facility] HospitalIn the event this information is protected by the Federal Confidentiality of Alcohol and Drug Abuse Patient Records regulations: The Federal rules restrict any use of the information to criminally investigate or prosecute any alcohol or drug abuse patient.[facility] HospitalIn the event this information is protected by the Federal Confidentiality of Alcohol and Drug Abuse Patient Records regulations: The Federal rules restrict any use of the information to criminally investigate or prosecute any alcohol or drug abuse patient.[facility] HospitalIn the event this information is protected by the Federal Confidentiality of Alcohol and Drug Abuse Patient Records regulations: The Federal rules restrict any use of the information to criminally investigate or prosecute any alcohol or drug abuse patient.[facility] HospitalIn the event this information is protected by the Federal Confidentiality of Alcohol and Drug Abuse Patient Records regulations: The Federal rules restrict any use of the information to criminally investigate or prosecute any alcohol or drug abuse patient.[facility] HospitalIn the event this information is protected by the Federal Confidentiality of Alcohol and Drug Abuse Patient Records regulations: The Federal rules restrict any use of the information to criminally investigate or prosecute any alcohol or drug abuse patient.[facility] HospitalIn the event this information is protected by the Federal Confidentiality of Alcohol and Drug Abuse Patient Records regulations: The Federal rules restrict any use of the information to criminally investigate or prosecute any alcohol or drug abuse patient.[facility] HospitalIn the event this information is protected by the Federal Confidentiality of Alcohol and Drug Abuse Patient Records regulations: The Federal rules restrict any use of the information to criminally investigate or prosecute any alcohol or drug abuse patient.[facility] HospitalIn the event this information is protected by the Federal Confidentiality of Alcohol and Drug Abuse Patient Records regulations: The Federal rules restrict any use of the information to criminally investigate or prosecute any alcohol or drug abuse patient.[facility] HospitalIn the event this information is protected by the Federal Confidentiality of Alcohol and Drug Abuse Patient Records regulations: The Federal rules restrict any use of the information to criminally investigate or prosecute any alcohol or drug abuse patient.[facility] HospitalIn the event this information is protected by the Federal Confidentiality of Alcohol and Drug Abuse Patient Records regulations: The Federal rules restrict any use of the information to criminally investigate or prosecute any alcohol or drug abuse patient.[facility] HospitalIn the event this information is protected by the Federal Confidentiality of Alcohol and Drug Abuse Patient Records regulations: The Federal rules restrict any use of the information to criminally investigate or prosecute any alcohol or drug abuse patient.[facility] HospitalIn the event this information is protected by the Federal Confidentiality of Alcohol and Drug Abuse Patient Records regulations: The Federal rules restrict any use of the information to criminally investigate or prosecute any alcohol or drug abuse patient.[facility] HospitalIn the event this information is protected by the Federal Confidentiality of Alcohol and Drug Abuse Patient Records regulations: The Federal rules restrict any use of the information to criminally investigate or prosecute any alcohol or drug abuse patient.[facility] HospitalIn the event this information is protected by the Federal Confidentiality of Alcohol and Drug Abuse Patient Records regulations: The Federal rules restrict any use of the information to criminally investigate or prosecute any alcohol or drug abuse patient.[facility] HospitalIn the event this information is protected by the Federal Confidentiality of Alcohol and Drug Abuse Patient Records regulations: The Federal rules restrict any use of the information to criminally investigate or prosecute any alcohol or drug abuse patient.[facility] Care Teams (unrecognized sec tion and content) Team MemberRelationshipSpecialtyStart DateEnd Date Luiz Tadeo [address] [place] [address] PCP - GeneralFamily Practice11/02/21Team MemberRelationshipSpecialtyStart DateEnd Date Luiz Tadeo [address] [place] [address] PCP - GeneralFamily Practice11/02/21Team MemberRelationshipSpecialtyStart DateEnd Date Luiz Tadeo [address] [place] [address] PCP - GeneralFamily Practice11/02/21Team MemberRelationshipSpecialtyStart DateEnd Date Luiz Tadeo [address] [place] [address] PCP - GeneralFamily Practice11/02/21Team MemberRelationshipSpecialtyStart DateEnd Date Luiz Tadeo [address] [place] [address] PCP - GeneralFamily Practice11/02/21Team MemberRelationshipSpecialtyStart DateEnd Date Luiz Tadeo [address] [place] [address] PCP - GeneralFamily Practice11/02/21Team MemberRelationshipSpecialtyStart DateEnd Date Luiz Tadeo [address] [place] [address] PCP - GeneralFamily Practice11/02/21Team MemberRelationshipSpecialtyStart DateEnd Date Luiz Tadeo Linnette [address] [place] [address] PCP - GeneralFamily Practice11/02/21Team MemberRelationshipSpecialtyStart DateEnd Date Luiz Tadeo Linnette [address] [place] [address] PCP - Generalmi Medicine11/02/21Team MemberRelationshipSpecialtyStart DateEnd Date Luiz Tadeo [address] [place] [address] PCP - Generalmi Medicine11/02/21Team MemberRelationshipSpecialtyStart DateEnd Date Luiz Tadeo [address] [place] [address] PCP - [facility] Medicine11/02/21Team MemberRelationshipSpecialtyStart DateEnd Date Luiz Tadeo [address] [place] [address] PCP - Generalmi Medicine11/02/21 Alex Riggins MD [address] [place] [address] Primary Staff EmnywtqpnJeppllqzrw20/8/22Team MemberRelationshipSpecialtyStart DateEnd Date Luiz Tadeo [address] [place] [address] PCP - Generalmi Medicine11/02/21 Alex Riggins MD [address] [place] [address] Primary Staff GknzomctySvaqbfncly65/8/22Team MemberRelationshipSpecialtyStart DateEnd Date Luiz Tadeo [address] [place] [address] [facility] - [facility]/02/21 Alex Riggins MD [address] [place] [address] Primary Staff PgaiaaladLfsdzgzrdo27/8/22Team MemberRelationshipSpecialtyStart DateEnd Date Luiz Tadeo [address] [place] [address] [facility]21 Alex Riggins MD [address] [place] [address] Primary Staff VdxgheqwdPfaaqtyzbk31/8/22Team MemberRelationshipSpecialtyStart DateEnd Date Luiz Tadeo [address] [place] [address] [facility]/21 Alex Riggins MD [address] [place] [address] Primary Staff OuvdrkpulPkndwuodye59/8/22Team MemberRelationshipSpecialtyStart DateEnd Date Luiz Tadeo [address] [place] [address] PCP - [facility] Medicine11/02/21 Alex Riggins MD [address] [place] [address] Primary Staff MnchnofpmYekeccmdcg21/8/22Team MemberRelationshipSpecialtyStart DateEnd Date Luiz Tadeo [address] [place] [address] PCP - [facility] Medicine11/02/21 Alex Riggins MD [address] [place], [place] [address] Primary Staff FusjoamgwNrxrvrabvq10/8/22Team MemberRelationshipSpecialtyStart DateEnd Date Luiz Tadeo [address] [place] [address] PCP - [facility]11/02/21 Alex Riggins MD [address] [place], [place] [address] Primary Staff MsrdzvzlcGijtuynitm37/8/22Team MemberRelationshipSpecialtyStart DateEnd Date Luiz Tadeo [address] [place] [address] PCP - [facility] Medicine11/02/21 Alex Riggins MD [address] [place], [place] [address] Primary Staff MzmcangsxYzcqtwzuoo77/8/22Team MemberRelationshipSpecialtyStart DateEnd Date Luiz Tadeo [address] [place] [address] PCP - [facility] Medicine11/02/21 Alex Riggins MD [address] [place], [place] [address] Primary Staff ZgujxrwzkHqlqzqeldb04/8/22Team MemberRelationshipSpecialtyStart DateEnd Date Luiz Tadeo [address] [place] [address] PCP - Generalmily Medicine11/02/21 Alex Riggins MD [address] [place] [address] Primary Staff MpdlompmpAlisncqufs73/8/22Team MemberRelationshipSpecialtyStart DateEnd Date Luiz Tadeo [address] [place] [address] PCP - [facility] Medicine11/02/21 Alex Riggins MD [address] [place] [address] Primary Staff LwvmtndoaKfvundhkjh75/8/22Te MemberRelationshipSpecialtyStart DateEnd Date Luiz Tadeo [address] [place] [address] [facility]/02/21 Alex Riggins MD [address] [place] [address] Primary Staff IfnvaxsriOvlketznrh63/8/22Te MemberRelationshipSpecialtyStart DateEnd Date Luiz Tadeo [address] [place] [address] PCP - [facility] Medicine11/02/21 Alex Riggins MD [address] [place] [address] Primary Staff UjutsjnzuIvkuftxrcz08/8/22Team MemberRelationshipSpecialtyStart DateEnd Date Luiz Tadeo [address] [place] [address] PCP - GeneralFamily Medicine11/02/21 Alex Riggins MD [address] [place] [address] Primary Staff IirtqaacdGknblceqkk20/8/22Team MemberRelationshipSpecialtyStart DateEnd Date Luiz Tadeo [address] [place] [address] PCP - Generalmi Medicine11/02/21 Alex Riggins MD [address] [place] [address] Primary Staff IsqkrtemzXisvvnnjnc57/8/22Team MemberRelationshipSpecialtyStart DateEnd Date Luiz Tadeo [address] [place] [address] PCP - Generalmily Medicine11/02/21 Alex Riggins MD [address] [place] [address] Primary Staff QtmxjepsiTvxuvhflzc38/8/22Team MemberRelationshipSpecialtyStart DateEnd Date Luiz Tadeo [address] [place] [address] PCP - Generalmily Medicine11/02/21 Alex Riggins MD [address] [place] [address] Primary Staff ZczcmlripIlfgwyjely60/8/22Team MemberRelationshipSpecialtyStart DateEnd Date Luiz Tadeo [address] [place] [address] [facility]/02/21 Alex Riggins MD [address] [place], [place] [address] Primary Staff HlytenhkbHhdnetauzo33/8/22Team MemberRelationshipSpecialtyStart DateEnd Date Luiz Tadeo [address] [place] [address] PCP - [facility] Medicine11/02/21 Alex Riggins MD [address] [place] [address] Primary Staff MhemyppqiAknllvdaeb00/8/22Team MemberRelationshipSpecialtyStart DateEnd Date Luiz Tadeo [address] [place] [address] PCP - [facility] Medicine11/02/21 Alex Riggins MD [address] [place], [place] [address] Primary Staff RaiuznvteZgavskairs48/8/22Team MemberRelationshipSpecialtyStart DateEnd Date Luiz Tadeo [address] [place] [address] PCP - GeneralFamily Medicine11/02/21 Alex Riggins MD [address] [place] [address] Primary Staff DncbqaeqcZywoetjhzj88/8/22Team MemberRelationshipSpecialtyStart DateEnd Date Luiz Tadeo MD [address] [place] [address] PCP - GeneralFamily Medicine11/02/21 Alex Riggins MD [address] [place] [address] Primary Staff KsrleutdkWgvpdrcyyh72/8/22Team MemberRelationshipSpecialtyStart DateEnd Date Luiz Tadeo MD [address] [place] [address] PCP - Generalmily Medicine11/02/21 Alex Riggins MD [address] [place] [address] Primary Staff QerxsxtmzGkgwlnauqc75/8/22Team MemberRelationshipSpecialtyStart DateEnd Date Luiz Tadeo MD [address] [place] [address] PCP - GeneralFamily Medicine09/28/23Team MemberRelationshipSpecialtyStart DateEnd Date Luiz Tadeo MD [address] [place] [address] PCP - GeneralFamily Medicine09/28/23Team MemberRelationshipSpecialtyStart DateEnd Date Luiz Tadeo MD [address] [place] [address] PCP - GeneralFamily Medicine11/02/21 Alex Riggins MD [address] [place] [address] Primary Staff ZhdrnxevwWqhoywbdej91/8/22Team MemberRelationshipSpecialtyStart DateEnd Date Luiz Tadeo MD [address] [place] [address] PCP - Generalmily Medicine09/28/23Team MemberRelationshipSpecialtyStart DateEnd Date Luiz Tadeo MD [address] [place] [address] PCP - Generalmily Medicine11/02/21 Alex Riggins MD [address] [place] [address] Primary Staff WolvbeukhDfdouwjyrn45/8/22Team MemberRelationshipSpecialtyStart DateEnd Date Luiz Tadeo MD [address] [place] [address] PCP - GeneralFamily Medicine09/28/23Team MemberRelationshipSpecialtyStart DateEnd Date Luiz Tadeo MD [address] [place] [address] PCP - Generalmily Medicine09/28/23Team MemberRelationshipSpecialtyStart DateEnd Date Luiz Tadeo MD [address] [place] [address] PCP - GeneralFamily Medicine11/02/21 Alex Riggins MD [address] [place], [place] [address] Primary Staff SquiiikzbAoucxixpdj64/8/22Team MemberRelationshipSpecialtyStart DateEnd Date Luiz Tadeo MD [address] [place] [address] PCP - GeneralFamily Medicine09/28/23Team MemberRelationshipSpecialtyStart DateEnd Date Luiz Tadeo MD [address] [place] [address] PCP - GeneralFamily Medicine09/28/23Team MemberRelationshipSpecialtyStart DateEnd Date Luiz Tadeo MD [address] [place] [address] PCP - GeneralFamily Medicine09/28/23Team MemberRelationshipSpecialtyStart DateEnd Date Luiz Tadeo MD [address] [place] [address] PCP - GeneralFamily Medicine09/28/23Team MemberRelationshipSpecialtyStart DateEnd Date Luiz Tadeo MD [address] [place] [address] PCP - GeneralFamily Medicine09/28/23Team MemberRelationshipSpecialtyStart DateEnd Date Luiz Tadeo MD PCP - GeneralFamily Medicine05/20/21Team MemberRelationshipSpecialtyStart DateEnd Date Luiz Tadeo MD PCP - GeneralFamily Medicine05/20/21Team MemberRelationshipSpecialtyStart DateEnd Date Luiz Tadeo MD [address] [place] [address] PCP - GeneralFamily Medicine09/28/23Team MemberRelationshipSpecialtyStart DateEnd Date Luiz Tadeo MD PCP - GeneralFamily Medicine05/20/21Team MemberRelationshipSpecialtyStart DateEnd Date Luiz Tadeo MD PCP - GeneralFamily Medicine05/20/21Team MemberRelationshipSpecialtyStart DateEnd Date Luiz Tadeo MD [address] [place] [address] PCP - GeneralFamily Medicine09/28/23Team MemberRelationshipSpecialtyStart DateEnd Date Luiz Tadeo MD [address] [place] [address] PCP - GeneralFamily Medicine09/28/23Team MemberRelationshipSpecialtyStart DateEnd Date Luiz Tadeo MD [address] [place] [address] PCP - Generalmily Medicine11/02/21 Alex Riggins MD [address] [place] [address] Primary Staff WvdxymeftBgipxtjnyp01/8/22Team MemberRelationshipSpecialtyStart DateEnd Date Luiz Tadeo MD [address] [place] [address] [facility] - [facility]/02/21 Alex Riggins MD [address] [place] [address] Primary Staff SkxifenhsXygzryehla76/8/22Team MemberRelationshipSpecialtyStart DateEnd Date Luiz Tadeo MD [address] [place] [address] [facility] - [facility]11/02/21 Alex Riggins MD [address] [place] [address] Primary Staff QirmmycasInlezhlrto40/8/22Team MemberRelationshipSpecialtyStart DateEnd Date Luiz Tadeo MD [address] [place] [address] [facility] - [facility] Medicine09/28/23Team MemberRelationshipSpecialtyStart DateEnd Date Luiz Tadeo MD [address] [facility] [place] [address] PCP - GeneralFamily Medicine05/20/21Team MemberRelationshipSpecialtyStart DateEnd Date Luiz Tadeo MD [address] [place] [facility] [place] [address] PCP - GeneralFamily Medicine05/20/21Team MemberRelationshipSpecialtyStart DateEnd Date Luiz Tadeo MD [address] [place] [facility] [place] [address] PCP - GeneralFamily Medicine05/20/21Team MemberRelationshipSpecialtyStart DateEnd Date Luiz Tadeo MD [address] [facility] [place] [address] PCP - GeneralFamily Medicine09/28/23 Luiz Tadeo MD [address] [facility] [place] [address] PCP - [facility]10/12/24Team MemberRelationshipSpecialtyStart DateEnd Date Luiz Tadeo MD [address] [place] [facility] [address] PCP - GeneralFamily Medicine05/20/21Team MemberRelationshipSpecialtyStart DateEnd Date Luiz Tadeo MD [address] [place] [facility] [place] [address] PCP - GeneralFamily Medicine05/20/21Team MemberRelationshipSpecialtyStart DateEnd Date Luiz Tadeo MD [address] [place] [facility] [place] [address] PCP - GeneralFamily Medicine05/20/21Team MemberRelationshipSpecialtyStart DateEnd Date Luiz Tadeo MD [address] [place] [facility] [place] [address] PCP - GeneralFamily Medicine05/20/21Team MemberRelationshipSpecialtyStart DateEnd Date Luiz Tadeo MD [address] [place] [facility] [place] [address] PCP - GeneralFamily Medicine05/20/21Team MemberRelationshipSpecialtyStart DateEnd Date Luiz Tadeo MD [address] [place] [facility] [place] [address] PCP - GeneralFamily Medicine05/20/21Team MemberRelationshipSpecialtyStart DateEnd Date Luiz Tadeo MD [address] [place] [facility] [place] [address] PCP - GeneralFamily Medicine05/20/21Team MemberRelationshipSpecialtyStart DateEnd Date Luiz Tadeo MD [address] [place] [facility] [place] [address] PCP - GeneralFamily Medicine05/20/21Team MemberRelationshipSpecialtyStart DateEnd Date Luiz Tadeo MD [address] [place] [facility] [place] [address] PCP - GeneralFamily Medicine05/20/21Team MemberRelationshipSpecialtyStart DateEnd Date Luiz Tadeo MD [address] [place] [facility] [place] [address] PCP - GeneralFamily Medicine05/20/21Team MemberRelationshipSpecialtyStart DateEnd Date Luiz Tadeo MD [address] [place] [facility] [place] [address] PCP - GeneralFamily Medicine05/20/21Team MemberRelationshipSpecialtyStart DateEnd Date Luiz Tadeo MD [address] [place] [facility] [place] [address] PCP - GeneralFamily Medicine05/20/21Team MemberRelationshipSpecialtyStart DateEnd Date Luiz Tadeo MD [address] [place] [facility] [place] [address] PCP - GeneralFamily Medicine05/20/21Team MemberRelationshipSpecialtyStart DateEnd Date Luiz Tadeo MD PCP - GeneralFamily Medicine05/20/21Team MemberRelationshipSpecialtyStart DateEnd Date Luiz Tadeo MD PCP - GeneralFamily Medicine05/20/21Team MemberRelationshipSpecialtyStart DateEnd Date Luiz Tadeo MD PCP - GeneralFamily Medicine05/20/21Team MemberRelationshipSpecialtyStart DateEnd Date Luiz Tadeo MD PCP - GeneralFamily Medicine05/20/21Team MemberRelationshipSpecialtyStart DateEnd Date Luiz Tadeo MD PCP - GeneralFamily Medicine05/20/21Team MemberRelationshipSpecialtyStart DateEnd Date Luiz Tadeo MD [address] [place] [address] PCP - GeneralFamily Medicine09/28/23 Luiz Tadeo MD [address] [place] [address] PCP - [facility]10/12/24Team MemberRelationshipSpecialtyStart DateEnd Date Luiz Tadeo MD PCP - GeneralFamily Medicine05/20/21Team MemberRelationshipSpecialtyStart DateEnd Date Luiz Tadeo MD PCP - GeneralFamily Medicine05/20/21Team MemberRelationshipSpecialtyStart DateEnd Date Luiz Tadeo MD [address] [place] [address] PCP - GeneralFamily Medicine09/28/23 Luiz Tadeo MD [address] [place] [address] PCP - [facility]10/12/24Team MemberRelationshipSpecialtyStart DateEnd Date Luiz Tadeo MD [address] [place] [address] PCP - GeneralFamily Medicine11/02/21 Alex Riggins MD [address] [place], [place] [address] Primary Staff HclezuovyWzwakvshdo69/8/22Team MemberRelationshipSpecialtyStart DateEnd Date Luiz Tadeo MD PCP - GeneralFamily Medicine05/20/21Team MemberRelationshipSpecialtyStart DateEnd Date Luiz Tadeo MD PCP - GeneralFamily Medicine05/20/21Team MemberRelationshipSpecialtyStart DateEnd Date Luiz Tadeo MD [address] [place] [address] PCP - Generalmily Medicine11/02/21 Alex Riggins MD [address] [place] [address] Primary Staff TqjmzqyloVqwbxgsvhw97/8/22Team MemberRelationshipSpecialtyStart DateEnd Date Luiz Tadeo MD [address] [place] [address] PCP - GeneralFamily Medicine09/28/23 Luiz Tadeo MD [address] [place] [address] PCP - ACO [facility]10/12/24Team MemberRelationshipSpecialtyStart DateEnd Date Luiz Tadeo MD [address] [place] [address] [facility]/28/23 Luiz Tadeo MD [address] [place] [address] PCP - [facility]10/12/24Team MemberRelationshipSpecialtyStart DateEnd Date Luiz Tadeo MD [address] [place] [address] [facility]02/19/25Team MemberRelationshipSpecialtyStart DateEnd Date Luiz Tadeo MD [address] [place] [address] [facility]09/28/23 Luiz Tadeo MD [address] [place] [address] PCP - [facility]10/12/24Team MemberRelationshipSpecialtyStart DateEnd Date Luiz Tadeo MD [address] [place] [address] PCP - Generalmily Medicine09/28/23 Luiz Tadeo MD [address] [place] [address] PCP - O [facility]10/12/24Team MemberRelationshipSpecialtyStart DateEnd Date Luiz Tadeo MD [address] [place] [address] PCP - GeneralFamily Medicine09/28/23 Luiz Tadeo MD [address] [place] [address] PCP - [facility]10/12/24Team MemberRelationshipSpecialtyStart DateEnd Date Luiz Tadeo MD [address] [place] [address] PCP - [facility] Medicine09/28/23 Luiz Tadeo MD [address] [place] [address] PCP - O [facility]10/12/24Team MemberRelationshipSpecialtyStart DateEnd Date Luiz Tadeo MD [address] [place] [address] [facility]/28/23 Luiz Tadeo MD [address] [place] [address] PCP - [facility]10/12/24Team MemberRelationshipSpecialtyStart DateEnd Date Luiz Tadeo MD [address] [place] [address] PCP - Generalmily Medicine09/28/23 Luiz Tadeo MD [address] [place] [address] PCP - [facility] Reach10/12/24Team MemberRelationshipSpecialtyStart DateEnd Date Luiz Tadeo MD [address] [place] [address] PCP - [facility] Medicine09/28/23 Luiz Tadeo MD [address] [place] [address] PCP - [facility]10/12/24Team MemberRelationshipSpecialtyStart DateEnd Date Luiz Tadeo MD [address] [place] [address] PCP - [facility]09/28/23 Luiz Tadeo MD [address] [place] [address] PCP - [facility]10/12/24Team MemberRelationshipSpecialtyStart DateEnd Date Luiz Tadeo MD [address] [place] [address] PCP - [facility]09/28/23 Luiz Tadeo MD [address] [place] [address] PCP - [facility]10/12/24Team MemberRelationshipSpecialtyStart DateEnd Date Luiz Tadeo MD PCP - [facility]05/20/21Team MemberRelationshipSpecialtyStart DateEnd Date Luiz Tadeo MD PCP - [facility] Medicine05/20/21Team MemberRelationshipSpecialtyStart DateEnd Date Luiz Tadeo MD PCP - [facility] Medicine05/20/21Team MemberRelationshipSpecialtyStart DateEnd Date Luiz Tadeo MD PCP - [facility]05/20/21Team MemberRelationshipSpecialtyStart DateEnd Date Luiz Tadeo MD PCP - [facility]09/28/23 Luiz Tadeo MD [address] [place] [address] PCP - [facility]10/12/24Team MemberRelationshipSpecialtyStart DateEnd Date Luiz Tadeo MD PCP - [facility] Medicine09/28/23 Luiz Tadeo MD [address] [place] [address] PCP - [facility]10/12/24Team MemberRelationshipSpecialtyStart DateEnd Date Luiz Tadeo MD [address] [place] [address] PCP - [facility]09/28/23 Luiz Tadeo MD [address] [place] [address] [facility]10/12/24Team MemberRelationshipSpecialtyStart DateEnd Date Luiz Tadeo MD [address] [place] [address] PCP [facility]09/28/23 Luiz Tadeo MD [address] [place] [address] [facility]10/12/24 FOR RECORDS PERTAINING TO PATIENTS WHO ARE [...] BE BASED ON THE PRIMARY CLINICAL RECORDS. [facility] [employer] [facility] provides no warranty or guarantee of the accuracy or completeness of information in this document.
--- NOTE | 2025-07-10 13:30 | CA_ITS ---
Patient Name: MARCELA BREWER MR#: [id number] : 1950 Exam Date: 07/10/2025 Ordering Doctor: DR. BEN HAYNES M.D. ECHOCARDIOGRAM REPORT PROCEDURE: CA ECHO DOPPLER COMPLETE INDICATIONS: Dyspnea on exertion, nonischemic cardiomyopathy, emphysema, hypertension, diabetes, h/o ablation COMPARISON: None. DESCRIPTION: COMPLETE ECHOCARDIOGRAM Real-time transthoracic echocardiography with 2D, M-mode, spectral and color flow Doppler performed. QUALITY: Technical quality was good. LEFT VENTRICLE: Normal chamber size. Normal left ventricular wall thickness. There is global hypokinesis. The septum is abnormal in motion likely due to bundle branch block. Systolic function is moderately to severely reduced. LV EF: Moderately reduced left ventricular ejection fraction, (30-35%). DIASTOLIC: Grade I diastolic dysfunction. ATRIAL SEPTUM: Visually appears intact. LEFT ATRIUM: Moderate dilatation. RIGHT ATRIUM: Normal chamber size. RIGHT VENTRICLE: Normal chamber size. Normal right ventricular systolic function. TRICUSPID VALVE: Normal mobility and thickness. No stenosis with mild regurgitation. No evidence of pulmonary hypertension. RVSP 30 mmHg MITRAL VALVE: Normal mobility and thickness. No evidence of mitral valve stenosis. Mild mitral annular calcification. Mild mitral regurgitation. AORTIC VALVE: Normal trileaflet appearance. No visible sclerosis. Normal leaflet mobility. No evidence of aortic valve stenosis. No aortic regurgitation. AORTIC ROOT: Normal diameter and appearance, measuring 3.3 cm. PULMONIC VALVE: Normal thickness and mobility. No stenosis. No regurgitation. PERICARDIUM: No evidence of pericardial effusion. IVC: IVC is normal in size, does not fully collapse. PLEURA: CONCLUSION: 1. The left ventricle is normal in size and exhibits moderately to severely reduced systolic function. There is global hypokinesis with abnormal septal motion. Estimated LVEF is 30 to 35%. 2. Normal right ventricular size and systolic function. 3. Moderate left atrial dilatation. 4. Mild tricuspid and mitral regurgitation. 5. Normal right-sided pressures. Adult Echocardiography Procedure Report Left Ventricle LVEDD (3.7 - 5.6 cm): 4.22 cm LVESD (2.2 - 4.0 cm): 3.22 cm LVIVS thickness (0.6 - 1.2 cm): 0.97 cm LVPW thickness (0.5 - 1.0 cm): 0.86 cm e': 0.10 m/s E - e': 7.19 LVOT Max Gradient: 3.26 mm[Hg] LVOT Area (cm2): 0.90 m/s Peak Velocity (LVOT): 0.90 m/s Mean Velocity (LVOT): 0.53 m/s LVOT Diameter 1.87 cm Left Ventricular Ejection Fraction: 30-35 % Left Atrium LA Volume Index (2D A2C): 47.40 ml/m2 Left Atrium Systolic Dimension: 2.78 cm Mitral Valve MV E to A Ratio: 1.11 Mitral Valve A-Wave Peak Velocity: 0.68 m/s Mitral Valve E-Wave Peak Velocity: 0.75 m/s Right Ventricle Aorta AO Root Diam: 3.35 cm Aortic Valve AoV Area (Peak Derrell): 2.60 cm2, 2.60 cm2 AoV Area (VTI): 2.96 cm2, 2.96 cm2 Peak Velocity(Antegrade Flow): 0.96 m/s Peak Gradient(Antegrade Flow): 3.66 mm[Hg] Mean Velocity(Antegrade Flow): 0.61 m/s Mean Gradient(Antegrade Flow): 1.77 mm[Hg] Velocity Time Integral: 14.94 cm Tricuspid Valve Peak Velocity (Regurgitant Flow): 2.17 m/s, 2.34 m/s Pulmonic Valve Mean Gradient: 2.24 mm[Hg], 2.45 mm[Hg] Mean Velocity: 0.69 m/s, 0.72 m/s Peak Gradient: 4.59 mm[Hg], 5.67 mm[Hg] Right Atrium Right Atrium Systolic Pressure: 20.56 ml, 20.56 ml Dictated by: Patricio Perkins M.D. on 07/11/2025 at 15:22 Approved by: Patricio Perkins M.D. on 07/11/2025 at 15:26
== END 2025-07-10 13:22 | disposition home or self-care (01) ==
LOC: CARD 13:21
PROVIDERS: PCP Family Medicine; Visit Provider Internal Medicine Cardiovascular Disease
DX: I42.8 Other cardiomyopathies (principal); R06.09 Other forms of dyspnea
CPT/HCPCS: 93306